=== PATIENT | male | born 1950 | race Caucasian/White ===

== ENCOUNTER 2016-08-31 06:11 | Day surgery (SDC) | payer MEDICARE ==
[2016-08-19 12:09] VITALS: BMI 35.1
[~2016-08-31 06:11] MED LIST: SODIUM CHLORIDE 0.9% 1,000 ML in EMPTY BAG 1 BAG IV ONE
[2016-08-31] MEDS ORDERED: ASPIRIN 81 MG CHEW ONE (06:39)
[2016-08-31 06:53] LABS: Glucose,Whole Blood 141 mg/dL (75-99)
[2016-08-31] MEDS ORDERED: SODIUM CHLORIDE 0.9% 1,000 ML IV ONE (06:53)
[2016-08-31] MEDS ORDERED: ASPIRIN 81 MG CHEW PO ONE (06:54)
[2016-08-31] MEDS ORDERED: LIDOCAINE 2% INJ 20 MG/ML SQ ONE (08:25)
[2016-08-31] MEDS ORDERED: MIDAZOLAM 2 MG/2 ML VIAL IV ONE (08:25)
[2016-08-31 08:35] LABS: INR 1.2 (<1.1); Prothrombin Time 12.1 sec (9.0-12.0)
[2016-08-31] MEDS ORDERED: fentaNYL (PF) 50 MCG/ML 2 ML AMP IV ONE (08:42)
[2016-08-31] MEDS ORDERED: CLOPIDOGREL 75 MG TAB PO ONE (08:48)
[2016-08-31] MEDS ORDERED: PROTAMINE SULFATE 10 MG/ML 5 ML VIAL IV ONE (08:59)
[2016-08-31 13:25] VITALS: TEMP 98.2
[2016-08-31 14:41] VITALS: BP 165/93; PULSE 78; RESP 16
[2016-08-31 17:04] LABS: Glucose,Whole Blood 96 mg/dL (75-99)
== END 2016-08-31 18:55 | disposition home or self-care (01) ==
LOC: CATHCVL 06:11 → 6SEL 08:45 → CATHCVL 18:55
PROVIDERS: ATTEND Internal Medicine Interventional Cardiology
DX: I70.213 Atherosclerosis of native arteries of extremities with intermittent claudication, bilateral legs (principal); Z53.8 Procedure and treatment not carried out for other reasons; M79.641 Pain in right hand; R20.0 Anesthesia of skin; I25.10 Atherosclerotic heart disease of native coronary artery without angina pectoris; Z95.1 Presence of aortocoronary bypass graft; E66.9 Obesity, unspecified; Z68.35 Body mass index [BMI] 35.0-35.9, adult; I10 Essential (primary) hypertension; Z87.891 Personal history of nicotine dependence; E78.00 Pure hypercholesterolemia, unspecified; E78.5 Hyperlipidemia, unspecified; Z82.49 Family history of ischemic heart disease and other diseases of the circulatory system; E11.9 Type 2 diabetes mellitus without complications; Z79.84 Long term (current) use of oral hypoglycemic drugs; Z79.01 Long term (current) use of anticoagulants; Z79.82 Long term (current) use of aspirin; Z79.899 Other long term (current) drug therapy; Z88.1 Allergy status to other antibiotic agents; Z88.2 Allergy status to sulfonamides
CPT/HCPCS: 37224; 85610; C1769 ×5; C1894 ×2; C1887; J2001; J2250; J2720; J3010; J1644

== ENCOUNTER 2016-09-02 09:41 | Day surgery (SDC) | payer MEDICARE ==
[2016-09-01 10:49] VITALS: BMI 35.4
[~2016-09-02 09:41] MED LIST changes: +ALPRAZolam 0.25 MG TAB PO PRN; +ASPIRIN 325 MG TAB PO STA; +ZOLPIDEM 5 MG TAB PO PRN
[2016-09-02 10:29] LABS: Glucose,Whole Blood 140 mg/dL (75-99)
[2016-09-02] MEDS ORDERED: IV FLUID CONTINUATION 1,000 ML IV ONE (11:25)
[2016-09-02] MEDS ORDERED: MIDAZOLAM 2 MG/2 ML VIAL IV ONE (12:04)
[2016-09-02] MEDS ORDERED: LIDOCAINE 2% INJ 20 MG/ML SQ ONE (12:10)
[2016-09-02] MEDS ORDERED: HEPARIN SODIUM 1,000 UNIT/ML VIAL IV ONE ×2 (12:15→12:56)
[2016-09-02] MEDS ORDERED: CLOPIDOGREL 75 MG TAB PO ONE (12:30)
[2016-09-02] MEDS ORDERED: niCARdipine Syringe (1,000 mcg/10 mL) INTRACORON ONE (13:13)
[2016-09-02] MEDS ORDERED: NITROGLYCERIN 1000MCG/10ML SYRINGE INTRAARTER ONE (13:13)
[2016-09-02] MEDS ORDERED: SODIUM CHLORIDE 0.9% 1,000 ML IV SCH (13:30)
[2016-09-02] MEDS ORDERED: IODIXANOL 320 MG/ML 100 ML INTRAARTER ONE (13:37)
[2016-09-02] MEDS ORDERED: hydrALAZINE HCL 20 MG/ML 1 ML VIAL IVP PRN (13:40)
[2016-09-02] MEDS ORDERED: ATROPINE SULFATE 0.1 MG/ML 10ML SYRINGE ONE (14:44)
--- NOTE | 2016-09-02 16:57 | IR ---
EXAMINATION TYPE: IR stent intravas non coronary DATE OF EXAM: 09/02/2016 1:44 PM COMPARISON: NONE HISTORY: Peripheral vascular disease Fluoroscopy support supplied to the referring clinician. See dictated report from cardiology, 414 in traoperative C-arm images document the procedure, 16.4 minutes fluoroscopy time
[2016-09-02 17:07] LABS: Glucose,Whole Blood 113 mg/dL (75-99)
[2016-09-02] MEDS ORDERED: NITROGLYCERIN SL TABS 0.4 MG TAB SUBLINGUAL PRN (19:22)
[2016-09-02] MEDS: ASPIRIN 81 MG CHEW PO SCH (20:13)
[2016-09-02 20:56] LABS: Glucose,Whole Blood 195 mg/dL (75-99)
[2016-09-02] MEDS ORDERED: NON-FORMULARY DRUG (Omega-3 Fatty Acids/Fish Oil [Fish Oil 1,000 Mg Softgel] 1 CAP) PO SCH (21:00)
[2016-09-02] MEDS ORDERED: PRAVASTATIN SODIUM 40 MG TAB PO SCH (21:00)
[2016-09-03 05:55] LABS: Glucose,Whole Blood 151 mg/dL (75-99)
[2016-09-03 06:11] LABS: Basophils # (A) 0.1 k/uL (0-0.2); Basophils % (A) 1 %; CH 30.9; CHCM 33.8; Eosinophils # (A) 0.2 k/uL (0-0.7); Eosinophils % (A) 2 %; HCT 34.8 % (39.0-53.0); HDW 2.82; HGB 11.1 gm/dL (13.0-17.5); Luc # (Auto) 0.13; Luc % (Auto) 2; Lymphocytes # (A) 1.7 k/uL (1.0-4.8); Lymphocytes % (A) 22 %; MCH 29.4 pg (25.0-35.0); MCV 91.9 fL (80.0-100.0); Mean Platelet Volume 7.3; Monocytes # (A) 0.6 k/uL (0-1.0); Monocytes % (A) 7 %; Neutrophils % (A) 66 %; RBC 3.78 m/uL (4.30-5.90); RDW 15.6 % (11.5-15.5); WBC 7.6 k/uL (3.8-10.6); WBC (Perox) 7.72
[2016-09-03 06:22] LABS: Anion Gap 9 mmol/L; Blood Urea Nitrogen 16 mg/dL (9-20); Calcium 9.7 mg/dL (8.4-10.2); Carbon Dioxide 28 mmol/L (22-30); Chloride 101 mmol/L (98-107); Glucose 142 mg/dL (74-99); Non-African American GFR(MDRD) >60 (>60 ml/min/1.73 sqM); Potassium 4.4 mmol/L (3.5-5.1); Sodium 138 mmol/L (137-145)
--- NOTE | 2016-09-03 07:00 | PCN ---
DATE OF PROCEDURE: September 02, 2016. PERFORMING PHYSICIAN: Nahid Porras MD, Aba Therapist. PROCEDURE PERFORMED: 1. Selective left superficial femoral artery angiogram. 2. Selective left [id number]-[id number]-pmmp angiogram. 3. Selective right common femoral artery angiogram. 4. Atherectomy of the left superficial femoral artery using the TurboHawk device. 5. Balloon angioplasty of the left SFA using 6.0 x 60 mm drug-coated balloon. 6. Successful stenting of the left SFA using 6.5 x 60 mm Supera stent with a good angiographic results. INDICATIONS: This is a pleasant 66-year-old gentleman who was experiencing bilateral lower extremity discomfort consistent with claudication, who underwent a peripheral angiogram and was found to have severe bilateral SFA disease. He was admitted today to undergo BIT SHARPENER OPERATOR of the left SFA. APPROACH: Right common femoral artery. COMPLICATIONS: None. LEVEL OF SEDATION: Moderate. PROCEDURE DESCRIPTION: After obtaining an informed consent, the patient was brought to the cardiac laboratory chemical assistant. The right common femoral artery was cannulated using micropuncture technique. The micropuncture wire passed easily. Then I placed an 11 cm 6 Barbadian sheath in the right common femoral artery. Subsequently anticoagulation was initiated using heparin and the patient was given a total of 10,000 units of heparin IV. After that, I did select the left SFA using an 0.035 advantage wire with support of 5 Barbadian rim catheter. After that, I did exchange my 11 cm 6 Barbadian sheath into 55 cm 6 Barbadian sheath using the advantage wire where the tip of the long sheath was positioned in the left external iliac artery. Subsequently, I exchanged my 0.035 advantage wire into 0.014 Ironman using an 0.035 QuickCross catheter. After that, I did multiple runs of directional atherectomy using the TurboHawk device and I was able to extract plaque from the left external iliac artery. After that, I did balloon angioplasty initially using 5.0 x 60 and then 6.0 x 60 mm drug-coated balloon which was inflated under its nominal pressure for 3 minutes. The following angiogram showed dissection involving the left SFA with haziness as well. At that point, I decided to stent that segment. I did deploy 6.6 x 60 mm Supera stent, where the stent was positioned under fluoroscopy guidance. Then it was deployed. I postdilated the proximal edge of the stent using 7 mm balloon. The following angiogram showed a good angiographic results. The left [id number]-veb-[id number] angiogram showed 3 vessel runoff, which seems to be unchanged compared to before. After that, I did exchange my 55 cm 6 Barbadian sheath into 11 cm 6 Barbadian sheath using the advantage wire. Then I did do selective right common femoral artery angiogram. The procedure was completed without any complication. POSTPROCEDURE MANAGEMENT: 1. Dual antiplatelet therapy. 2. Risk factor modification. 3. Follow up with the patient.
--- NOTE | 2016-09-03 07:03 | LTR ---
September 02, 2016 RE: Kevin Mcknight Dear Dr. Hall: Mr. Kevin Mcknight underwent successful balloon angioplasty and stenting of the left femoral artery with a good angiographic result and without any complication. Thank you for allowing me to participate in his care. Sincerely, ABHAY HERNÁNDEZ MD
[2016-09-03] MEDS ORDERED: PANTOPRAZOLE 40 MG TABLET PO SCH (07:30)
[2016-09-03] MEDS ORDERED: glipiZIDE 10 MG TAB PO SCH (07:30)
[2016-09-03] MEDS ORDERED: FUROSEMIDE 40 MG TAB PO SCH (09:00)
[2016-09-03] MEDS ORDERED: ALLOPURINOL 100 MG TAB PO SCH (09:00)
[2016-09-03] MEDS ORDERED: METOPROLOL SUCCINATE (ER) 100 MG TAB.ER.24H PO SCH (09:00)
[2016-09-03] MEDS ORDERED: MAGNESIUM OXIDE 400 MG TAB PO SCH (09:00)
[2016-09-03] MEDS ORDERED: ASPIRIN 325 MG TAB PO SCH (09:00)
[2016-09-03] MEDS ORDERED: CLOPIDOGREL 75 MG TAB PO SCH (09:00)
[2016-09-03] MEDS ORDERED: SPIRONOLACTONE 25 MG TAB PO SCH (09:00)
[2016-09-03 09:12] VITALS: RESP 12; TEMP 97
[2016-09-03] MEDS: ASPIRIN 81 MG CHEW PO SCH (09:19)
--- NOTE | 2016-09-03 09:56 | P.PN ---
Subjective Principal diagnosis: PAD Discharge note This is a pleasant 66-year-old gentleman with known history of paroxysmal atrial fibrillation, coronary artery disease with prior bypass surgery, PAD, diabetes, hypertension, hyperlipidemia, GERD, who was experiencing bilateral lower extremity discomfort consistent with claudication, he underwent a peripheral angiogram and was found to have severe bilateral SFA disease. He was admitted to the hospital to undergo BOX STORAGE WORKER of the left SFA. This was performed yesterday by Dr. Gordon, successful stenting of the left SFA. Patient was seen and examined this morning, states he did not sleep very well last night through the night, however denies any discomfort in his legs, no discomfort in the groin. Blood pressure this morning 154/80, heart rate in the 80s. 93% on room air. Hemoglobin 11.1, platelet count 273, potassium 4.4, BUN 16 and creatinine 1.2. Patient is currently on aspirin 325 mg, Plavix 75 mg daily, Lasix 40 mg daily, lisinopril 5 mg daily, magnesium tablet, metoprolol tartrate 100 mg by mouth daily, Protonix 40 mg daily, pravastatin 40 mg at at bedtime, and Aldactone 25 mg daily. He may be able to be discharged home today. A follow-up appointment will be made in the office in one week. Objective - Vital Signs Vital signs: Vital Signs Temp 97 F L 09/03/16 09:11 Pulse 80 09/03/16 09:13 Resp 12 09/03/16 09:13 BP 154/81 09/03/16 09:11 Pulse Ox 93 L 09/03/16 09:11 Intake & Output 09/02/16 09/03/16 09/03/16 18:59 06:59 18:59 Intake Total 150 10 180 Output Total 600 Balance 150 -590 180 Weight 108.862 kg 108.8 kg Intake: IV 150 10 0.9% NS FLUSH 10 mL 10 Oral 180 Output: Urine 600 Other: Voiding Method Urinal - Exam PHYSICAL EXAMINATION: HEENT: Head is atraumatic, normocephalic. Pupils equal, round. Neck is supple. There is no elevated jugular venous pressure. HEART EXAMINATION: Heart S1 S2 1 systolic murmur is heard. CHEST EXAMINATION: Lungs are clear to auscultation and precussion. No chest wall tenderness is noted on palpation or with deep breathing. ABDOMEN: Soft, nontender. Bowel sounds are heard. No organomegaly noted. Right groin soft, no evidence of any hematoma. EXTREMITIES: 1+ peripheral pulses with no evidence of peripheral edema and no calf tenderness noted. NEUROLOGIC patient is awake, alert and oriented -3. . - Labs CBC & Chem 7: 09/03/16 05:32 09/03/16 05:32 Labs: Abnormal Lab Results - Last 24 Hours (Table) 09/02/16 09/02/16 09/02/16 Range/Units 10:22 16:47 20:54 RBC (4.30-5.90) m/uL Hgb (13.0-17.5) gm/dL Hct (39.0-53.0) % RDW (11.5-15.5) % Glucose (74-99) mg/dL POC Glucose (mg/dL) 140 H 113 H 195 H (75-99) mg/dL 09/03/16 09/03/16 09/03/16 Range/Units 05:32 05:32 05:53 RBC 3.78 L (4.30-5.90) m/uL Hgb 11.1 L (13.0-17.5) gm/dL Hct 34.8 L (39.0-53.0) % RDW 15.6 H (11.5-15.5) % Glucose 142 H (74-99) mg/dL POC Glucose (mg/dL) 151 H (75-99) mg/dL Assessment and Plan Plan: Assessment and plan #1 status post angioplasty and stenting of the left SFA #2 paroxysmal atrial fibrillation #3 known history of coronary artery disease with prior bypass surgery #4 diabetes #5 hypertension #6 hyperlipidemia Plan Patient may be able to be discharged home today. We will make a follow-up appointment for the patient to see Dr. Gordon in the office in one week. Discharge medications include aspirin 81 mg daily, Plavix 75 mg daily, Lasix 40 mg daily, lisinopril 5 mg daily, magnesium, metoprolol tartrate 100 mg daily, pravastatin 40 mg daily, Aldactone 25 mg daily, Protonix, we will also resume the patient's Coumadin as he is taking at home, obtain PT/INR on Monday. DNP note has been reviewed, I agree with a documented findings and plan of care. Patient was seen and examined.
[2016-09-03] MEDS ORDERED: LISINOPRIL 5 MG TAB PO SCH (12:00)
[2016-09-03 12:16] LABS: Glucose,Whole Blood 193 mg/dL (75-99)
[2016-09-03 12:25] VITALS: BP 152/67; PULSE 68
== END 2016-09-03 13:24 | disposition home or self-care (01) ==
LOC: CATHCVL 09:41 → 6SEL 12:21 → CATHCVL 12:21 → 6SEL 13:20 → CATHCVL 09-03 13:24
PROVIDERS: ATTEND Internal Medicine Interventional Cardiology
DX: I70.213 Atherosclerosis of native arteries of extremities with intermittent claudication, bilateral legs (principal); I25.10 Atherosclerotic heart disease of native coronary artery without angina pectoris; Z95.1 Presence of aortocoronary bypass graft; I10 Essential (primary) hypertension; Z87.891 Personal history of nicotine dependence; E78.00 Pure hypercholesterolemia, unspecified; E78.5 Hyperlipidemia, unspecified; E66.9 Obesity, unspecified; Z68.35 Body mass index [BMI] 35.0-35.9, adult; Z82.49 Family history of ischemic heart disease and other diseases of the circulatory system; Z79.01 Long term (current) use of anticoagulants; Z79.84 Long term (current) use of oral hypoglycemic drugs; Z79.82 Long term (current) use of aspirin; Z79.899 Other long term (current) drug therapy; Z88.2 Allergy status to sulfonamides
CPT/HCPCS: 37227; 80048; 85025; C1769 ×4; C1894 ×2; C1725; C1887; C1714; C2623; C1876; J2001; J2250; Q9967; J1644

== ENCOUNTER 2016-09-21 12:17 | Day surgery (SDC) | payer MEDICARE ==
[2016-09-16 13:06] VITALS: BMI 35.4
[~2016-09-21 12:17] MED LIST changes: -ZOLPIDEM 5 MG TAB PO PRN
[2016-09-21 12:49] LABS: Glucose,Whole Blood 141 mg/dL (75-99)
[2016-09-21 13:10] LABS: INR 1.2 (<1.1)
[2016-09-21 13:11] LABS: Prothrombin Time 11.9 sec (9.0-12.0)
[2016-09-21] MEDS ORDERED: MIDAZOLAM 2 MG/2 ML VIAL IV ONE ×2 (16:19→18:23)
[2016-09-21] MEDS ORDERED: LIDOCAINE 2% INJ 20 MG/ML SQ ONE (16:24)
[2016-09-21] MEDS ORDERED: HYDROmorphone 2 MG/ML 1 ML SYRINGE IV ONE (16:30)
[2016-09-21] MEDS: MIDAZOLAM 2 MG/2 ML VIAL IV ONE ×2 (16:39→17:04)
[2016-09-21] MEDS ORDERED: niCARdipine Syringe (1,000 mcg/10 mL) IV ONE (18:06)
[2016-09-21] MEDS ORDERED: NITROGLYCERIN 1000MCG/10ML SYRINGE INTRAARTER ONE (18:06)
[2016-09-21] MEDS ORDERED: NITROGLYCERIN SL TABS 0.4 MG TAB SUBLINGUAL PRN (18:35)
[2016-09-21] MEDS ORDERED: SODIUM CHLORIDE 0.9% 1,000 ML IV SCH (18:45)
[2016-09-21] MEDS ORDERED: ATROPINE SULFATE 0.1 MG/ML 10ML SYRINGE ONE (20:28)
[2016-09-21 20:40] LABS: Glucose,Whole Blood 172 mg/dL (75-99)
[2016-09-21] MEDS ORDERED: PRAVASTATIN SODIUM 40 MG TAB PO SCH (21:00)
[2016-09-21] MEDS ORDERED: NON-FORMULARY DRUG (Omega-3 Fatty Acids/Fish Oil [Fish Oil 1,000 Mg Softgel] 1 CAP) PO SCH (21:00)
[2016-09-21] MEDS: MAGNESIUM OXIDE 400 MG TAB PO SCH (21:20)
[2016-09-21] MEDS: ASPIRIN 81 MG CHEW PO SCH (21:20)
--- NOTE | 2016-09-21 22:28 | PTCA ---
DATE OF SERVICE: 09/21/2016 PERFORMING PHYSICIAN: Nahid Porras M.D., electric power machine operator. PROCEDURES PERFORMED: 1. Selective right superficial femoral artery angiogram. 2. Selective right common femoral artery angiogram. 3. Selective left common iliac artery angiogram. 4. Selective left external iliac artery angiogram. 5. Selective left common femoral artery angiogram. 6. An atherectomy of the right superficial femoral artery using the TurboHawk device. 7. An atherectomy of the right common femoral artery using the TurboHawk device. 8. Successful stenting of the right external iliac artery using a 6 x 40 mm self-expandable stent, with good angiographic results. 9. Successful balloon angioplasty of the right common femoral artery using a 6 x 60 mm drug-coated balloon, with good angiographic results. 10. Successful stenting of the left common iliac artery using a 8.0 x 39 mm iCAST-covered stent which was post dilated using a 9 mm balloon, with good angiographic results. INDICATION: This is a pleasant 66-year-old gentleman who was experiencing severe bilateral lower extremity discomfort consistent with intermittent claudication. He underwent a peripheral angiogram a few weeks ago and that showed severe left and right femoropopliteal disease. He underwent already an angioplasty of the left leg, and he was brought today to undergo angioplasty of the right leg. APPROACH: Left common femoral artery in a contralateral retrograde fashion. COMPLICATIONS: None. LEVEL OF SEDATION: Moderate. PROCEDURE DESCRIPTION: After obtaining informed consent, the patient was brought to the cardiac cath lab radiological technologist. The left common femoral artery was cannulated using micropuncture technique. The micropuncture wire passed easily. Then I placed initially an 11 cm 7 Malian sheath in the left common femoral artery. Subsequently I selected the right SFA using an 0.35 Advantage wire with the support of 5 Malian RIM catheter. Subsequently I tried to cross over and advance a 7 Malian 55 cm sheath across the aortic bifurcation to the right common femoral artery, but the sheath would not cross over because of the heavy calcified aortic bifurcation. I tried that over an 0.035 stiff Glidewire, 0.035 Advantage wire, and 0.035 Amplatzer wire, and I was unable. I even tried to advance a 6 Malian multipurpose catheter, and I was unable. At that point I decided to downgrade my 7 Malian sheath to a 6 Malian sheath. At that point I was able to cross over a 55 cm 6 Malian sheath to the right side over an 0.035 Advantage wire and support from a multipurpose catheter. The tip of the 6 Malian Rabi sheath was positioned in the right external iliac artery. Anticoagulation had already been initiated using heparin after that I accessed the left groin. Subsequently I did selective right SFA and right common femoral artery angiogram. After that, I did atherectomy of the right SFA and atherectomy of the right common femoral artery using the TurboHawk device, which was prepped and advanced over a 0.014 Ironman. After multiple runs of directional atherectomy, I performed an angiogram. After that I did stenting of the right SFA using a 6.0 x 40 mm self-expandable stent which was positioned under fluoroscopy guidance. Then it was deployed. I post dilated the stent using a 5 mm balloon. For the lesion in the right common femoral artery, I did balloon angioplasty using a 6 x 60 mm DCB balloon which was inflated again under its nominal pressure. The following angiogram showed excellent angiographic results. During the procedure and when I was crossing over from the left side to the right side, I had a concern about a lesion in the left common iliac artery where I did perform multiple angiograms. The lesion angiographically does not look too bad. I did measure a gradient across it, and that came out to be non-significant, but the lesion looks ulcerated and hazy. I decided to stent that lesion, so I did deploy an iCAST which was 8.0 x 39 mm stent, which was post dilated using a 9 mm balloon. The following angiogram showed good angiographic results. The procedure was completed without any complication. Post-procedure management will be: 1. Dual antiplatelet therapy. 2. Risk factor modification. 3. Followup with the patient.
--- NOTE | 2016-09-21 23:47 | LTR ---
September 21, 2016 RE: Kevin Mcknight Dear Dr. Hall, Mr. Kevin Mcknight underwent successful stenting of the left iliac artery and right femoral artery with good angiographic results and without any complication. Thank you for allowing us to participate in his care. Please do not hesitate to call if you have any question or concern. Sincerely, ABHAY HERNÁNDEZ MD
[2016-09-22 06:02] LABS: Glucose,Whole Blood 152 mg/dL (75-99)
[2016-09-22 06:53] LABS: Basophils % (A) 1 %; CH 30.3; CHCM 33.1; Eosinophils # (A) 0.1 k/uL (0-0.7); Eosinophils % (A) 2 %; HCT 32.2 % (39.0-53.0); HDW 2.77; HGB 10.5 gm/dL (13.0-17.5); Luc # (Auto) 0.14; Luc % (Auto) 2; Lymphocytes # (A) 1.3 k/uL (1.0-4.8); Lymphocytes % (A) 17 %; MCH 29.9 pg (25.0-35.0); MCHC 32.6 g/dL (31.0-37.0); MCV 91.8 fL (80.0-100.0); Mean Platelet Volume 6.7; Monocytes # (A) 0.4 k/uL (0-1.0); Monocytes % (A) 6 %; Neutrophils # (A) 5.6 k/uL (1.3-7.7); Neutrophils % (A) 73 %; RBC 3.51 m/uL (4.30-5.90); WBC 7.6 k/uL (3.8-10.6); WBC (Perox) 8.66
[2016-09-22 07:28] LABS: Anion Gap 13 mmol/L; Blood Urea Nitrogen 33 mg/dL (9-20); Carbon Dioxide 25 mmol/L (22-30); Chloride 100 mmol/L (98-107); Glucose 145 mg/dL (74-99); Non-African American GFR(MDRD) 50 (>60 ml/min/1.73 sqM); Potassium 5.1 mmol/L (3.5-5.1); Sodium 138 mmol/L (137-145)
[2016-09-22] MEDS ORDERED: glipiZIDE 10 MG TAB PO SCH (07:30)
[2016-09-22] MEDS ORDERED: PANTOPRAZOLE 40 MG TABLET PO SCH (07:30)
[2016-09-22 08:08] VITALS: BP 129/61; PULSE 84; RESP 16; TEMP 97
[2016-09-22] MEDS: ASPIRIN 81 MG CHEW PO SCH (08:11)
[2016-09-22] MEDS: MAGNESIUM OXIDE 400 MG TAB PO SCH (08:11)
[2016-09-22] MEDS ORDERED: ALLOPURINOL 100 MG TAB PO SCH (09:00)
[2016-09-22] MEDS ORDERED: METOPROLOL SUCCINATE (ER) 100 MG TAB.ER.24H PO SCH (09:00)
[2016-09-22] MEDS ORDERED: FUROSEMIDE 40 MG TAB PO SCH (09:00)
[2016-09-22] MEDS ORDERED: CLOPIDOGREL 75 MG TAB PO SCH (09:00)
--- NOTE | 2016-09-22 11:49 | IR ---
Fluoroscopy HISTORY: Pain 35.5 minutes fluoroscopy time supplied to the referring clinician. 433 intraoperative C-arm images d ocument the procedure. See dictated report from cardiology.
[2016-09-22] MEDS ORDERED: LISINOPRIL 5 MG TAB PO SCH (12:00)
--- NOTE | 2016-09-23 09:13 | DS ---
DATE OF ADMISSION: 09/21/2016 DATE OF DISCHARGE: 09/22/2016 BRIEF HISTORY: This is a pleasant 66-year-old gentleman who was admitted to the hospital yesterday and underwent successful balloon angioplasty of the right superficial femoral artery along with successful balloon angioplasty of the right common femoral artery and successful stenting of the left iliac artery with a good angiographic result and without any complication. On follow-up with him today, he is doing good and he is asymptomatic. The left groin, which was the access site was soft and nontender and without any bruises. The patient is going to be discharged home on dual antiplatelet therapy and I will follow up with the patient next week in the office.
[2016-10-06] MEDS ORDERED: CYANOCOBALAMIN 1,000 MCG/ML 1 ML VIAL IM SCH (12:00)
== END 2016-09-22 10:28 | disposition home or self-care (01) ==
LOC: CATHCVL 12:17 → 6SEL 18:35 → CATHCVL 09-22 10:28
PROVIDERS: ATTEND Internal Medicine Interventional Cardiology
DX: I70.213 Atherosclerosis of native arteries of extremities with intermittent claudication, bilateral legs (principal); I10 Essential (primary) hypertension; E78.00 Pure hypercholesterolemia, unspecified; I25.10 Atherosclerotic heart disease of native coronary artery without angina pectoris; I25.82 Chronic total occlusion of coronary artery; I48.0 Paroxysmal atrial fibrillation; E66.9 Obesity, unspecified; E78.5 Hyperlipidemia, unspecified; E11.9 Type 2 diabetes mellitus without complications; I50.22 Chronic systolic (congestive) heart failure; Z68.35 Body mass index [BMI] 35.0-35.9, adult; M47.9 Spondylosis, unspecified; Z79.01 Long term (current) use of anticoagulants; Z79.84 Long term (current) use of oral hypoglycemic drugs; Z79.82 Long term (current) use of aspirin; Z79.899 Other long term (current) drug therapy; Z95.1 Presence of aortocoronary bypass graft; Z82.49 Family history of ischemic heart disease and other diseases of the circulatory system; Z95.5 Presence of coronary angioplasty implant and graft
CPT/HCPCS: 99156; 99157 ×7; 37221; 37225; 80048; 85025; 85610; C1769 ×7; C1894 ×5; C1725 ×2; C1874; C1887; C1714; C2623; J2001; J2250; J1170; J1644

== ENCOUNTER 2016-09-28 05:06 | Emergency (ER) | payer MEDICARE ==
[2016-09-28 05:13] VITALS: RESP 16; TEMP 98.3
--- NOTE | 2016-09-28 05:36 | ED ---
General Adult HPI - General Source: patient, RN notes reviewed Mode of arrival: ambulatory Limitations: no limitations <Delfino Madera - Last Filed: 09/28/16 05:36> <Brad Gipson - Last Filed: 09/28/16 08:21> - General Chief complaint: Recheck/Abnormal Lab/Rx Stated complaint: problems post surgery Time Seen by Provider: 09/28/16 05:10 - History of Present Illness Initial comments: This is a 66-year-old male who states he had a cardiac catheterization approximately one week ago. Patient states last night he noticed a small lump on his left groin and that lump is growing until this morning and that is why he came in to be evaluated. Patient states the area does not hurt patient has had no other problems he has some ecchymosis to the area but that has been chronic. Patient states his been no new ecchymosis the only new problems at the lump has grown. Patient denies any numbness or tingling in the leg. Patient denies chest pain or difficulty breathing (Delfino Madera) - Related Data Home Medications Medication Instructions Recorded Confirmed Allopurinol [Zyloprim] 100 mg PO DAILY 03/16/15 09/28/16 [place]-3 Fatty Acids/Fish Oil [Fish 1 cap PO BID 03/16/15 09/28/16 Oil 1,000 mg Softgel] glipiZIDE [Glucotrol] 20 mg PO AC-BRKFST 03/16/15 09/28/16 Aspirin [Adult Low Dose Aspirin EC] 81 mg PO BID 05/12/16 09/28/16 Nitroglycerin Sl Tabs [Nitrostat] 0.4 mg SUBLINGUAL DIRECTED PRN 05/12/1609/13 Omeprazole [PriLOSEC] 20 mg PO AC-BID 05/12/16 09/28/16 Cyanocobalamin [Vitamin B-12 1,000 mcg IM Q30D 05/26/16 09/28/16 Injection] Lisinopril [Zestril] 5 mg PO DAILY@1200 08/19/16 09/28/16 Magnesium Oxide [Mag-Ox] 400 mg PO TID 08/19/16 09/28/16 Metoprolol Succinate (ER) [Toprol 100 mg PO DAILY 08/19/16 09/28/16 XL] Spironolactone [Aldactone] 12.5 mg PO DAILY 08/19/16 09/28/16 Warfarin Sodium [Coumadin] 15 mg PO MOTUTHFRSA 09/28/16 09/28/16 Warfarin [Coumadin] 10 mg PO SUWE 09/28/16 09/28/16 metFORMIN HCL 2,000 mg PO BID 09/28/16 09/28/16 Previous Rx's Medication Instructions Recorded Furosemide [Lasix] 40 mg PO DAILY #90 tablet 06/05/16 Clopidogrel [Plavix] 75 mg PO DAILY #30 tab 09/03/16 Pravastatin Sodium [Pravachol] 40 mg PO HS #30 tab 09/03/16 Allergies Allergy/AdvReac Type Severity Reaction Status Date / Time Sulfa (Sulfonamide Allergy Rash/Hives Verified 09/28/16 05:13 Antibiotics) sulfamethoxazole Allergy Rash/Hives Verified 09/28/16 05:13 [From Bactrim] trimethoprim [From Bactrim] Allergy Rash/Hives Verified 09/28/16 05:13 Review of Systems ROS Other: All systems not noted in ROS Statement are negative. <Delfino Madera - Last Filed: 09/28/16 05:36> ROS Other: All systems not noted in ROS Statement are negative. <Brad Gipson - Last Filed: 09/28/16 08:21> ROS Statement: Those systems with pertinent positive or pertinent negative responses have been documented in the HPI. Past Medical History Past Medical History: Atrial Fibrillation, Coronary Artery Disease (CAD), Chest Pain / Angina, Heart Failure, Diabetes Mellitus, GERD/Reflux, Hyperlipidemia, Hypertension, Musculoskeletal Disorder, Osteoarthritis (OA), Vascular Disorder Additional Past Medical History / Comment(s): Arthritis BACK. Gout. POS Gallstones. PVD. PAIN RT LEG W/ NT IN FOOT. History of Any Multi-Drug Resistant Organisms: None Reported Past Surgical History: Coronary Bypass/CABG, Heart Catheterization With Stent, Orthopedic Surgery, Tonsillectomy Additional Past Surgical History / Comment(s): Rt foot surgery. CABG 2005- triple bypass. HEART STENT X2. Attempted (RT BRACHIAL ACCESS) fem-pop ; 09/02/16 LT ANGIOGRAM,PER STAFF: PTBA W/ 1 STENT.09-21-16 RT ILIAC STENTS AND STENT TO SFA,BALLOONED FEM ARTERY. Past Anesthesia/Blood Transfusion Reactions: No Reported Reaction Date of Last Stent Placement:: 09/02/16 Past Psychological History: No Psychological Hx Reported Additional Psychological History / Comment(s): . Smoking Status: Former smoker Past Alcohol Use History: None Reported Additional Past Alcohol Use History / Comment(s): Pt states he started smoking about 1965, 2 PPD, quit in 2005. Past Drug Use History: None Reported - Past Family History Father Family Medical History: Vascular Disorder Additional Family Medical History / Comment(s): Father at the age of 65 yrs from heart problems. Mother Family Medical History: Pulmonary Embolus <Delfino Madera - Last Filed: 09/28/16 05:36> General Exam Limitations: no limitations <Delfino Madera - Last Filed: 09/28/16 05:36> <Brad Gipson - Last Filed: 09/28/16 08:21> - General Exam Comments Initial Comments: GENERAL Patient is well-developed and well-nourished. Patient is in mild distress. EYES Patient's pupils are equal and round. Extraocular motion is intact SKIN Unremarkable NEURO The patient is alert and oriented 3 PYSCH Patient has normal interpersonal interactions. MUSCULOSKELETAL Patient's left groin is very ecchymotic there is a lump in the left groin that has a very loud pulses were auscultated when compared to the right. (Delfino Madera) Medical Decision Making <Delfino Madera - Last Filed: 09/28/16 05:36> - Radiology Data Radiology results: report reviewed (Ultrasound shows 2 small hematomas, no pseudoaneurysm.) <Brad Gipson - Last Filed: 09/28/16 08:21> - Medical Decision Making Patient will be taken over by Dr. Gipson at 7 AM (Delfino Madera) Patient reexamined by myself, Dr. Gipson. Patient resting comfortably in bed. Patient has ecchymosis without significant swelling left groin. Pulses are intact. No significant tenderness. Patient and family updated on results. ( Brad Gipson) Disposition <Delfino Madera - Last Filed: 09/28/16 05:36> <Brad Gipson - Last Filed: 09/28/16 08:21> Clinical Impression: Hematoma Disposition: HOME SELF-CARE Condition: Stable Instructions: Hematoma (ED) Additional Instructions: Please follow-up with your doctor and healthcare social worker this week. Return for increased swelling, increased pain, redness, worsening symptoms or other concerns. Referrals: Kristel Hall MD [Primary Care Provider] - 1-2 days
--- NOTE | 2016-09-28 08:05 | US ---
EXAMINATION TYPE: US lower ext pseudo artery LT DATE OF EXAM: 09/28/2016 7:39 AM COMPARISON: No previous CLINICAL HISTORY: Pain. Left groin palpable/painful area following stent placement with left groin ac cess TECHNOLOGIST IMPRESSION: Scanned left groin palpable area: 2 hypoechoic non-vascular areas anterior to CFV with larger measuring 3.1 x 0.5 x 2.2cm and smaller measuring 1.1 x 0.5 x 1.2cm, 1.7 x 0.7 x 1 .3cm hypoechoic vascular area superior to palpable area: possible lymph node IMPRESSION: 1. Small hematoma. 2. No evidence of a pseudoaneurysm at the time
[2016-09-28 08:29] VITALS: BP 147/70; PULSE 67
== END 2016-09-28 08:28 | disposition home or self-care (01) ==
LOC: EC 05:06
DX: I97.630 Postprocedural hematoma of a circulatory system organ or structure following a cardiac catheterization (principal); Y84.0 Cardiac catheterization as the cause of abnormal reaction of the patient, or of later complication, without mention of misadventure at the time of the procedure; I11.0 Hypertensive heart disease with heart failure; I50.9 Heart failure, unspecified; I48.91 Unspecified atrial fibrillation; I25.10 Atherosclerotic heart disease of native coronary artery without angina pectoris; E11.9 Type 2 diabetes mellitus without complications; E78.5 Hyperlipidemia, unspecified; M10.9 Gout, unspecified; K21.9 Gastro-esophageal reflux disease without esophagitis; Z79.01 Long term (current) use of anticoagulants; Z79.82 Long term (current) use of aspirin; Z79.84 Long term (current) use of oral hypoglycemic drugs; Z79.02 Long term (current) use of antithrombotics/antiplatelets; Z79.899 Other long term (current) drug therapy; Z88.1 Allergy status to other antibiotic agents; Z88.2 Allergy status to sulfonamides; Z95.1 Presence of aortocoronary bypass graft; Z95.5 Presence of coronary angioplasty implant and graft
CPT/HCPCS: 93975; 99283

== ENCOUNTER 2016-10-25 11:00 | Inpatient (IN) | payer MEDICARE ==
--- NOTE | 2016-10-25 11:43 | ED ---
Weakness HPI - General Chief complaint: Weakness Stated complaint: lt arm pain/dark stool/weakness Time Seen by Provider: 10/25/16 11:30 Source: patient, family, RN notes reviewed Mode of arrival: wheelchair Limitations: no limitations - History of Present Illness Initial comments: This is a 66-year-old male with a history of heart disease who was taking a shower this morning when he became very weak lightheaded. He also has some left shoulder pain. He had exertional dyspnea. Per his he was very pale. He also states she's had black stool today. He is on Coumadin. He denies any headache or blurry vision or focal weakness. He states a left shoulder pain is resolved initially better as he is lying down at this time. No prior history of abdominal surgery or GI bleeding. He states he did not eat anything that could turn his stool black. MD Complaint: generalized weakness - Related Data Home Medications Medication Instructions Recorded Confirmed Allopurinol [Zyloprim] 100 mg PO DAILY 03/16/15 10/25/16 [place]-3 Fatty Acids/Fish Oil [Fish 1 cap PO BID 03/16/15 10/25/16 Oil 1,000 mg Softgel] glipiZIDE [Glucotrol] 20 mg PO AC-BRKFST 03/16/15 10/25/16 Aspirin [Adult Low Dose Aspirin EC] 81 mg PO BID 05/12/16 10/25/16 Nitroglycerin Sl Tabs [Nitrostat] 0.4 mg SUBLINGUAL DIRECTED PRN 05/12/16 Omeprazole [PriLOSEC] 20 mg PO AC-BID 05/12/16 10/25/16 Cyanocobalamin [Vitamin B-12 1,000 mcg IM Q30D 05/26/16 10/25/16 Injection] Lisinopril [Zestril] 5 mg PO DAILY@1200 08/19/16 10/25/16 Magnesium Oxide [Mag-Ox] 400 mg PO DAILY@1200 08/19/16 10/25/16 Metoprolol Succinate (ER) [Toprol 100 mg PO DAILY 08/19/16 10/25/16 XL] Spironolactone [Aldactone] 12.5 mg PO DAILY 08/19/16 10/25/16 Warfarin Sodium [Coumadin] 15 mg PO SUMOTUTHFRSA 09/28/16 10/25/16 Warfarin [Coumadin] 10 mg PO WE 09/28/16 10/25/16 metFORMIN HCL 2,000 mg PO BID 09/28/16 10/25/16 Previous Rx's Medication Instructions Recorded Furosemide [Lasix] 40 mg PO DAILY #90 tablet 06/05/16 Clopidogrel [Plavix] 75 mg PO DAILY #30 tab 09/03/16 Pravastatin Sodium [Pravachol] 40 mg PO HS #30 tab 09/03/16 Allergies Allergy/AdvReac Type Severity Reaction Status Date / Time Sulfa (Sulfonamide Allergy Rash/Hives Verified 10/25/16 11:45 Antibiotics) sulfamethoxazole Allergy Rash/Hives Verified 10/25/16 11:45 [From Bactrim] trimethoprim [From Bactrim] Allergy Rash/Hives Verified 10/25/16 11:45 Review of Systems ROS Statement: Those systems with pertinent positive or pertinent negative responses have been documented in the HPI. ROS Other: All systems not noted in ROS Statement are negative. Past Medical History Past Medical History: Atrial Fibrillation, Coronary Artery Disease (CAD), Chest Pain / Angina, Heart Failure, Diabetes Mellitus, GERD/Reflux, Hyperlipidemia, Hypertension, Musculoskeletal Disorder, Osteoarthritis (OA), Vascular Disorder Additional Past Medical History / Comment(s): Arthritis BACK. Gout. POS Gallstones. PVD. PAIN RT LEG W/ NT IN FOOT. History of Any Multi-Drug Resistant Organisms: None Reported Past Surgical History: Coronary Bypass/CABG, Heart Catheterization With Stent, Orthopedic Surgery, Tonsillectomy Additional Past Surgical History / Comment(s): Rt foot surgery. CABG 2005- triple bypass. HEART STENT X2. Attempted (RT BRACHIAL ACCESS) fem-pop ; 09/02/16 LT ANGIOGRAM,PER STAFF: PTBA W/ 1 STENT.09-21-16 RT ILIAC STENTS AND STENT TO SFA,BALLOONED FEM ARTERY. Past Anesthesia/Blood Transfusion Reactions: No Reported Reaction Date of Last Stent Placement:: 09/02/16 Past Psychological History: No Psychological Hx Reported Additional Psychological History / Comment(s): . Smoking Status: Former smoker Past Alcohol Use History: None Reported Additional Past Alcohol Use History / Comment(s): Pt states he started smoking about 1965, 2 PPD, quit in 2005. Past Drug Use History: None Reported - Past Family History Father Family Medical History: Vascular Disorder Additional Family Medical History / Comment(s): Father at the age of 65 yrs from heart problems. Mother Family Medical History: Pulmonary Embolus General Exam - General Exam Comments Initial Comments: This is a well-developed well-nourished awake alert oriented 3 male Limitations: no limitations General appearance: alert, in no apparent distress Head exam: Present: atraumatic, normocephalic, normal inspection Eye exam: Present: normal appearance, PERRL, EOMI. Absent: scleral icterus, conjunctival injection, periorbital swelling ENT exam: Present: normal exam, mucous membranes moist Neck exam: Present: normal inspection. Absent: tenderness, meningismus, lymphadenopathy Respiratory exam: Present: normal lung sounds bilaterally. Absent: respiratory distress, wheezes, rales, rhonchi, stridor Cardiovascular Exam: Present: regular rate, normal rhythm, normal heart sounds. Absent: systolic murmur, diastolic murmur, rubs, gallop, clicks GI/Abdominal exam: Present: soft, normal bowel sounds. Absent: distended, tenderness, guarding, rebound, rigid Rectal exam: Present: normal inspection, heme (+) stool, black stool Extremities exam: Present: normal inspection, full ROM, normal capillary refill. Absent: tenderness, pedal edema, joint swelling, calf tenderness Back exam: Present: normal inspection Neurological exam: Present: alert, oriented X3, CN II-XII intact Psychiatric exam: Present: normal affect, normal mood Skin exam: Present: warm, dry, intact, pallor. 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 Reevaluation #2: 10/25/16 14:01 I did discuss the findings with the patient has which included the knee positive stool after rectal exam. Hemoglobin level. The Coumadin level. Did discuss case with Dr. Iniguez, Dr. Chen and Dr. Doe patient will be admitted ICU he will get a blood transfusion. GI will be consulted EKG Findings - EKG Results: EKG: interpreted by ERMD, sinus rhythm (Sinus rhythm rate of 91. Interval 1:30 QRS duration 80 daily since QTC of 362/[address]-T wave configuration evidence of inferior lateral ischemia no definite ST elevations. This is compared with EKG dated 09/02/16 which does not show the prominent changes.) Medical Decision Making - Lab Data Result diagrams: 10/25/16 11:55 10/25/16 11:55 Lab Results 10/25/16 10/25/16 10/25/16 Range/Units 11:55 11:55 11:55 WBC 11.8 H (3.8-10.6) k/uL RBC 2.44 L (4.30-5.90) m/uL Hgb 7.5 L D (13.0-17.5) gm/dL Hct 22.1 L (39.0-53.0) % MCV 90.6 (80.0-100.0) fL MCH 30.6 (25.0-35.0) pg MCHC 33.8 (31.0-37.0) g/dL RDW 16.0 H (11.5-15.5) % Plt Count 293 (150-450) k/uL Neutrophils % 80 % Lymphocytes % 13 % Monocytes % 4 % Eosinophils % 1 % Basophils % 1 % Neutrophils # 9.5 H (1.3-7.7) k/uL Lymphocytes # 1.5 (1.0-4.8) k/uL Monocytes # 0.5 (0-1.0) k/uL Eosinophils # 0.1 (0-0.7) k/uL Basophils # 0.1 (0-0.2) k/uL Anisocytosis Slight PT (9.0-12.0) sec INR (<1.1) APTT (22.0-30.0) sec Sodium 137 (137-145) mmol/L Potassium 4.9 (3.5-5.1) mmol/L Chloride 101 (98-107) mmol/L Carbon Dioxide 23 (22-30) mmol/L Anion Gap 13 mmol/L BUN 42 H (9-20) mg/dL Creatinine 1.28 H (0.66-1.25) mg/dL Est GFR (MDRD) Af Amer >60 (>60 ml/min/1.73 sqM) Est GFR (MDRD) Non-Af 56 (>60 ml/min/1.73 sqM) Glucose 114 H (74-99) mg/dL Calcium 8.8 (8.4-10.2) mg/dL Magnesium 1.6 (1.6-2.3) mg/dL Total Bilirubin 0.4 (0.2-1.3) mg/dL AST 86 H (17-59) U/L ALT 38 (21-72) U/L Alkaline Phosphatase 72 (38-126) U/L Total Creatine Kinase 778 H (55-170) U/L CK-MB (CK-2) 41.4 H* (0.0-2.4) ng/mL CK-MB (CK-2) Rel Index 5.3 Troponin I 7.020 H* (0.000-0.034) ng/mL Total Protein 6.7 (6.3-8.2) g/dL Albumin 4.0 (3.5-5.0) g/dL Stool Occult Blood (Negative) Blood Type Blood Type Confirm Blood Type Recheck Antibody Screen Crossmatch Spec Expiration Date 10/25/16 10/25/16 10/25/16 Range/Units 11:55 11:55 12:55 WBC (3.8-10.6) k/uL RBC (4.30-5.90) m/uL Hgb (13.0-17.5) gm/dL Hct (39.0-53.0) % MCV (80.0-100.0) fL MCH (25.0-35.0) pg MCHC (31.0-37.0) g/dL RDW (11.5-15.5) % Plt Count (150-450) k/uL Neutrophils % % Lymphocytes % % Monocytes % % Eosinophils % % Basophils % % Neutrophils # (1.3-7.7) k/uL Lymphocytes # (1.0-4.8) k/uL Monocytes # (0-1.0) k/uL Eosinophils # (0-0.7) k/uL Basophils # (0-0.2) k/uL Anisocytosis PT >130.0 H (9.0-12.0) sec INR >10.0 H* (<1.1) APTT 41.0 H (22.0-30.0) sec Sodium (137-145) mmol/L Potassium (3.5-5.1) mmol/L Chloride (98-107) mmol/L Carbon Dioxide (22-30) mmol/L Anion Gap mmol/L BUN (9-20) mg/dL Creatinine (0.66-1.25) mg/dL Est GFR (MDRD) Af Amer (>60 ml/min/1.73 sqM) Est GFR (MDRD) Non-Af (>60 ml/min/1.73 sqM) Glucose (74-99) mg/dL Calcium (8.4-10.2) mg/dL Magnesium (1.6-2.3) mg/dL Total Bilirubin (0.2-1.3) mg/dL AST (17-59) U/L ALT (21-72) U/L Alkaline Phosphatase (38-126) U/L Total Creatine Kinase (55-170) U/L CK-MB (CK-2) (0.0-2.4) ng/mL CK-MB (CK-2) Rel Index Troponin I (0.000-0.034) ng/mL Total Protein (6.3-8.2) g/dL Albumin (3.5-5.0) g/dL Stool Occult Blood Positive (Negative) Blood Type B Positive Blood Type Confirm Blood Type Recheck CABO Indicated Antibody Screen NEGATIVE Crossmatch See Detail Spec Expiration Date 10/28/2016 - 9475 10/25/16 Range/Units 13:01 WBC (3.8-10.6) k/uL RBC (4.30-5.90) m/uL Hgb (13.0-17.5) gm/dL Hct (39.0-53.0) % MCV (80.0-100.0) fL MCH (25.0-35.0) pg MCHC (31.0-37.0) g/dL RDW (11.5-15.5) % Plt Count (150-450) k/uL Neutrophils % % Lymphocytes % % Monocytes % % Eosinophils % % Basophils % % Neutrophils # (1.3-7.7) k/uL Lymphocytes # (1.0-4.8) k/uL Monocytes # (0-1.0) k/uL Eosinophils # (0-0.7) k/uL Basophils # (0-0.2) k/uL Anisocytosis PT (9.0-12.0) sec INR (<1.1) APTT (22.0-30.0) sec Sodium (137-145) mmol/L Potassium (3.5-5.1) mmol/L Chloride (98-107) mmol/L Carbon Dioxide (22-30) mmol/L Anion Gap mmol/L BUN (9-20) mg/dL Creatinine (0.66-1.25) mg/dL Est GFR (MDRD) Af Amer (>60 ml/min/1.73 sqM) Est GFR (MDRD) Non-Af (>60 ml/min/1.73 sqM) Glucose (74-99) mg/dL Calcium (8.4-10.2) mg/dL Magnesium (1.6-2.3) mg/dL Total Bilirubin (0.2-1.3) mg/dL AST (17-59) U/L ALT (21-72) U/L Alkaline Phosphatase (38-126) U/L Total Creatine Kinase (55-170) U/L CK-MB (CK-2) (0.0-2.4) ng/mL CK-MB (CK-2) Rel Index Troponin I (0.000-0.034) ng/mL Total Protein (6.3-8.2) g/dL Albumin (3.5-5.0) g/dL Stool Occult Blood (Negative) Blood Type Blood Type Confirm B Positive Blood Type Recheck Antibody Screen Crossmatch Spec Expiration Date Critical Care Time Critical Care Time: Yes Critical Care Time: 43 minutes of critical care time which includes initial encounter with history physical lab and x-rays several reevaluation the patient. Discussion with the patient and his regarding the findings. Discussion with the admitting physician. Discussed with cardiology. Discussion with the material specialist. Admission orders and documentation of the above. Disposition Clinical Impression: Acute upper GI bleed, Coumadin toxicity, Symptomatic anemia, Non-ST elevation myocardial infarction (NSTEMI) Disposition: ADMITTED IP TO THIS [facility] Condition: Serious
[2016-10-25 12:09] LABS: Anisocytosis Slight; Basophils # (A) 0.1 k/uL (0-0.2); Basophils % (A) 1 %; CH 30.9; CHCM 34.4; Eosinophils # (A) 0.1 k/uL (0-0.7); Eosinophils % (A) 1 %; HCT 22.1 % (39.0-53.0); HDW 3.25; Luc # (Auto) 0.19; Luc % (Auto) 2; Lymphocytes # (A) 1.5 k/uL (1.0-4.8); Lymphocytes % (A) 13 %; MCH 30.6 pg (25.0-35.0); MCHC 33.8 g/dL (31.0-37.0); MCV 90.6 fL (80.0-100.0); Mean Platelet Volume 7.7; Monocytes # (A) 0.5 k/uL (0-1.0); Monocytes % (A) 4 %; Neutrophils # (A) 9.5 k/uL (1.3-7.7); Neutrophils % (A) 80 %; RBC 2.44 m/uL (4.30-5.90); WBC 11.8 k/uL (3.8-10.6); WBC (Perox) 11.23
[2016-10-25 12:15] LABS: HGB 7.5 gm/dL (13.0-17.5)
[2016-10-25 12:29] LABS: ALT 38 U/L (21-72); AST 86 U/L (17-59); Alkaline Phosphatase 72 U/L (38-126); Anion Gap 13 mmol/L; Blood Urea Nitrogen 42 mg/dL (9-20); Calcium 8.8 mg/dL (8.4-10.2); Carbon Dioxide 23 mmol/L (22-30); Chloride 101 mmol/L (98-107); Glucose 114 mg/dL (74-99); Magnesium 1.6 mg/dL (1.6-2.3); Non-African American GFR(MDRD) 56 (>60 ml/min/1.73 sqM); Potassium 4.9 mmol/L (3.5-5.1); Sodium 137 mmol/L (137-145); Total Bilirubin 0.4 mg/dL (0.2-1.3); Total Protein 6.7 g/dL (6.3-8.2)
--- NOTE | 2016-10-25 12:36 | XR ---
Abdomen HISTORY: Pain, weakness, dark tarry stool Frontal view of the abdomen on 2 images. Lung bases are clear. Patient is post median sternotomy and there are overlying cardiac leads. No jenny dent pneumoperitoneum or bowel obstruction. There are atherosclerotic vascular calcifications which a re extensive and dense. Degenerative disc changes in the visualized spine, there is a spinal curvatur e. IMPRESSION: Nonobstructive bowel gas pattern, additional findings above.
--- NOTE | 2016-10-25 12:43 | XR ---
EXAMINATION TYPE: XR chest 2V DATE OF EXAM: 10/25/2016 12:28 PM COMPARISON: Prior chest x-ray four May 2016 HISTORY: Weakness and belching TECHNIQUE: Frontal and lateral views of the chest are obtained. FINDINGS: There is no focal air space opacity, pleural effusion, or pneumothorax seen. The cardiac silhouette size is stable. Patient is post median sternotomy. Fourth rib posteriorly shows deformit y suggestive of old fracture as on prior. There are overlying cardiac leads. There are prominent lung volumes, suspect coronary artery calcifications. The osseous structures are intact. IMPRESSION: Improved aeration as compared to prior exam.
[2016-10-25 12:46] LABS: Creatine Kinase MB 41.4 ng/mL (0.0-2.4)
[2016-10-25 12:47] LABS: Troponin I 7.02 ng/mL (0.000-0.034)
[2016-10-25 12:55] LABS: INR >10.0 (<1.1); Prothrombin Time >130.0 sec (9.0-12.0)
[2016-10-25] MEDS ORDERED: NITROGLYCERIN SL TABS 0.4 MG TAB SUBLINGUAL PRN (14:03)
[2016-10-25 15:22] LABS: Glucose,Whole Blood 105 mg/dL (75-99)
[2016-10-25] MEDS: SODIUM CHLORIDE 0.9% 1,000 ML IV SCH (15:28)
[2016-10-25] MEDS ORDERED: PHYTONADIONE ORAL 5 MG/5 ML ORAL.SYRG PO STA (16:06)
[2016-10-25] MEDS: ATORVASTATIN 80 MG TAB PO SCH (16:33)
[2016-10-25] MEDS: NITROGLYCERIN OINT 1 INCH/GM PACKET TOPICAL SCH ×2 (17:47→23:32)
[2016-10-25] MEDS: INSULIN LISPRO (humaLOG) 300 UNIT/3 ML VIAL SQ SCH ×2 (17:49→20:30)
[2016-10-25 17:50] LABS: Glucose,Whole Blood 105 mg/dL (75-99)
[2016-10-25] MEDS ORDERED: NITROGLYCERIN OINT 1 INCH/GM PACKET TOPICAL SCH (18:00)
--- NOTE | 2016-10-25 18:07 | P.CNPUL ---
History of Present Illness Consult date: 10/25/16 Requesting physician: Chichi Chen Reason for consult: other (Acute GI bleeding and Coumadin coagulopathy) Chief complaint: Black stools and weakness History of present illness: This is a 66-year-old white male with history of coronary artery disease and previous CABG. History of severe systolic dysfunction, EF is between 10-15%, history of chronic atrial fibrillation this was recently diagnosed back on 06/06. Since the diagnosis of his atrial fibrillation, patient was started on Coumadin. Patient is also on multiple medications for his cardiac disease. And he usually follows up with Dr. wilcox. Since last Monday which is 4 days ago, patient has been noticing black stools. No abdominal pain, no bright red blood per rectum, no nausea no vomiting and no hematemesis. Today while he was taking a shower this morning, patient felt very weak and lightheaded. I also had some dyspnea and left shoulder pain. noted him to be very pale. Hence the patient was brought into the ER. Workup in the ER showed that the patient had a hemoglobin of 7.5. His baseline hemoglobin on 09/22/2016 was 10.5. Patient was also noted to have elevated INR of more than 10. And PTT > 130. Electrolytes were noted to be normal. However his BUN was 42 and creatinine 1.28. Troponin was also noted to be elevated at 7.020, and the patient was found to have positive stool occult blood. Hence the patient was admitted, so far he received 1 unit of packed RBCs, I plan to give him 2 units of fresh frozen plasma. Patient received 1 dose of vitamin K 5 mg orally. All along the patient was hemodynamically stable. Patient was admitted to the ICU, and I was asked to see him on consultation. At the time of my evaluation, patient denied any headache no blurred vision no dizziness. No nausea no vomiting no abdominal pain no hematemesis. Denied any chest pain. Denied any shortness of breath. Review of Systems 14 point review of systems were obtained, please refer to pertinent positives and negatives in HPI. Past Medical History Past Medical History: Atrial Fibrillation, Coronary Artery Disease (CAD), Chest Pain / Angina, Heart Failure, Diabetes Mellitus, GERD/Reflux, Hyperlipidemia, Hypertension, Musculoskeletal Disorder, Osteoarthritis (OA), Vascular Disorder Additional Past Medical History / Comment(s): Arthritis BACK. Gout. POS Gallstones. PVD. PAIN RT LEG W/ NT IN FOOT. History of Any Multi-Drug Resistant Organisms: None Reported Past Surgical History: Coronary Bypass/CABG, Heart Catheterization With Stent, Orthopedic Surgery, Tonsillectomy Additional Past Surgical History / Comment(s): Rt foot surgery. CABG 2005- triple bypass. HEART STENT X2. Attempted (RT BRACHIAL ACCESS) fem-pop ; 09/02/16 LT ANGIOGRAM,PER STAFF: PTBA W/ 1 STENT TO LT SFA. PER 09-22-16 DISCHARGE SUMMARY"BALLOON ANGIOPLASTY RT SUPERFICIAL FEM ARTERY,BALLOON ANGIOPLASTY RT COMMON FEM ARTERY AND STENTING LT ILIAC ARTERY". Past Anesthesia/Blood Transfusion Reactions: No Reported Reaction Date of Last Stent Placement:: 09/02/16 Past Psychological History: No Psychological Hx Reported Additional Psychological History / Comment(s): . Smoking Status: Former smoker Past Alcohol Use History: None Reported Additional Past Alcohol Use History / Comment(s): Pt states he started smoking about 1965, 2 PPD, quit in 2005. Past Drug Use History: None Reported - Past Family History Father Family Medical History: Vascular Disorder Additional Family Medical History / Comment(s): Father at the age of 65 yrs from heart problems. Mother Family Medical History: Pulmonary Embolus Medications and Allergies Home Medications Medication Instructions Recorded Confirmed Type Allopurinol [Zyloprim] 100 mg PO DAILY 03/16/15 10/25/16 History [place]-3 Fatty Acids/Fish Oil [Fish 1 cap PO BID 03/16/15 10/25/16 History Oil 1,000 mg Softgel] glipiZIDE [Glucotrol] 20 mg PO AC-BRKFST 03/16/15 10/25/16 History Aspirin [Adult Low Dose Aspirin EC] 81 mg PO BID 05/12/16 10/25/16 History Nitroglycerin Sl Tabs [Nitrostat] 0.4 mg SUBLINGUAL DIRECTED PRN 05/12/16 History Omeprazole [PriLOSEC] 20 mg PO AC-BID 05/12/16 10/25/16 History Cyanocobalamin [Vitamin B-12 1,000 mcg IM Q30D 05/26/16 10/25/16 History Injection] Lisinopril [Zestril] 5 mg PO DAILY@1200 08/19/16 10/25/16 History Magnesium Oxide [Mag-Ox] 400 mg PO DAILY@1200 08/19/16 10/25/16 History Metoprolol Succinate (ER) [Toprol 100 mg PO DAILY 08/19/16 10/25/16 History XL] Spironolactone [Aldactone] 12.5 mg PO DAILY 08/19/16 10/25/16 History Warfarin Sodium [Coumadin] 15 mg PO SUMOTUTHFRSA 09/28/16 10/25/16 History Warfarin [Coumadin] 10 mg PO WE 09/28/16 10/25/16 History metFORMIN HCL 2,000 mg PO BID 09/28/16 10/25/16 History Allergies Allergy/AdvReac Type Severity Reaction Status Date / Time Sulfa (Sulfonamide Allergy Rash/Hives Verified 10/25/16 11:45 Antibiotics) sulfamethoxazole Allergy Rash/Hives Verified 10/25/16 11:45 [From Bactrim] trimethoprim [From Bactrim] Allergy Rash/Hives Verified 10/25/16 11:45 Physical Exam Vitals: Vital Signs Temp Pulse Resp BP Pulse Ox 10/25/16 17:00 75 19 107/50 97 10/25/16 16:45 75 16 118/51 97 10/25/16 16:38 98.9 F 95 24 114/53 98 10/25/16 16:37 99.3 F 77 16 96/52 98 10/25/16 16:30 72 15 96/52 98 10/25/16 16:15 84 19 98/58 98 10/25/16 16:00 76 21 104/48 97 10/25/16 15:45 88 21 103/49 98 10/25/16 15:35 18 10/25/16 15:30 89 17 112/55 100 10/25/16 15:21 100 10/25/16 15:15 98.0 F 100 118/56 100 10/25/16 15:02 99.2 F 83 18 103/52 100 10/25/16 14:23 98.2 F 97 18 97/49 100 10/25/16 14:13 98.3 F 88 16 106/52 Intake and Output 10/25/16 10/25/16 10/25/16 06:59 14:59 22:59 Intake Total 920 Balance 920 Intake: IV 300 Sodium Chloride 0.9% 1, 300 000 ml @ 100 mls/hr IV . Q10H [facility] Rx#:[id number] Blood Product 620 Rc As-1 Unit 310 [id number] Rc As-1 Unit 0 [id number] Other: Voiding Method Urinal Weight 110.2 kg Patient Weight 10/26/16 06:59 Weight 110.2 kg Physical Exam: Revealed a 66-year-old white male slightly pale in no distress. HEENT:[Neck is supple.] [No neck masses.] [No thyromegaly.] [No JVD.] Chest: [Clear throughout, no crackles, no rhonchi, no wheezes.] Cardiac Exam: [Normal S1 and S2, no S3 gallop, no murmur.] Abdomen: [Soft, nontender, no megaly, no rebound, no guarding, normal bowel sounds.] Extremities: [No clubbing, no edema, no cyanosis.] Neurological Exam: [No focal neurologic deficit.] Results - Laboratory Findings CBC and BMP: 10/25/16 11:55 10/25/16 11:55 PT/INR, D-dimer PT >130.0 sec (9.0-12.0) H 10/25/16 11:55 INR >10.0 (<1.1) H* 10/25/16 11:55 Abnormal lab findings: Abnormal Labs 10/25/16 10/25/16 15:19 17:49 POC Glucose (mg/dL) 105 H 105 H - Diagnostic Findings Chest x-ray: image reviewed (No evidence of acute abnormality noted on the chest x-ray.) Additional studies: EKG showed normal sinus rhythm however he had inferolateral ST and T-wave changes consistent with ischemia. Assessment and Plan Plan: Impression: 1 acute GI bleeding most likely upper GI in nature secondary to Coumadin coagulopathy and elevated pro time and INR. 2 history of ischemic cardiomyopathy and severe systolic dysfunction. 3 history of chronic atrial fibrillation 4 history of JOIE directed cardioversion 5 history of coronary artery disease and previous CABG in 2005 at [facility] 6 history of type 2 diabetes 7 history of hyperlipidemia 8 history of hypertension. 9 possible acute non-ST elevation myocardial infarction Recommendation: Agree with the present treatment plan, hold any anticoagulation therapy for now. Address the coagulopathy with fresh frozen plasma and vitamin K, address the anemia with blood transfusion keeping a close watch for potential congestive heart failure since the patient has history of severe ischemic cardiomyopathy and LV dysfunction. Serial CBCs will be done. And we' ll address that accordingly. GI consultation and cardiac consultations were initiated. Patient will be closely monitored in the intensive care unit. Discussed his condition with him and his at bedside. Prognosis is definitely guarded. And will continue to follow closely. Addressed his treatment with the nurses at bedside. Continue care time 35 minutes. Time with Patient: Greater than 30
[2016-10-25] MEDS ORDERED: NALOXONE 0.4 MG/ML 1 ML VIAL IV PRN (18:10)
[2016-10-25 18:15] LABS: Creatine Kinase MB 77.6 ng/mL (0.0-2.4)
[2016-10-25 18:16] LABS: Troponin I 39.1 ng/mL (0.000-0.034)
[2016-10-25] MEDS ORDERED: Magnesium Replacement Protocol 1 EACH MISC MISCELLANE PRN (19:11)
--- NOTE | 2016-10-25 20:01 | CONS ---
DATE OF CONSULTATION: 66-year-old male with a known history of coronary artery disease, history of peripheral vascular disease, who presented with symptoms of weakness, dyspnea and chest discomfort. Patient has been followed by Dr. Geovanna Hendricks on a regular basis and has underwent coronary bypass grafting in 2005 with VALLE to the LAD, saphenous vein graft to the obtuse marginal branch and to the PDA. He underwent a cardiac catheterization in 2014, VALLE to LAD was patent, saphenous vein graft to the obtuse marginal branch was patent and the PDA graft was diffusely diseased. He was subsequently be admitted in March 2015 and underwent stenting of the ostium and mid left circumflex. He was admitted in April 2016 with atrial fibrillation and evidence cardiomyopathy. He underwent JOIE and cardioversion. At that time he was initiated on anticoagulation. Recently he has been complaining of significant lower extremities intermittent claudication. He was evaluated by Dr. Porras and underwent left SFA percutaneous revascularization. This morning while taking a shower he felt quite weak and dizzy, dyspneic and had symptoms of chest discomfort and arm discomfort, came into the emergency room and was noted to have significant anemia with a hemoglobin down in the 7 range. The patient is maintained on triple anticoagulation with a combination of Coumadin, aspirin and Plavix. His pain is better at this time. He denies any significant discomfort at this point. He has started to feel dizzy from Monday, start to note dark stool on Monday. He has no history of PND, orthopnea, or peripheral edema on a regular basis. He had no palpitation. The dizziness is new. Usually his breathing is stable. His coronary risk factors are remarkable for remote history of smoking. He is diabetic, hypertensive and hyperlipidemic. His medications at home included: 1. Metformin. 2. Glipizide. 3. Coumadin. 4. Spironolactone 12.5 mg daily. 5. Pravastatin 40 mg daily. 6. Metoprolol succinate 100 mg daily. 7. Lisinopril 5 mg daily. 8. Lasix 40 mg daily. 9. Plavix 75 mg daily. 10. Aspirin once a day. REVIEW OF SYSTEMS: RESPIRATORY SYSTEM: He has noted recent history of wheezing or cough. He has no history of obstructive lung disease. GI system: No recent GI bleeding. No peptic ulcer disease in the past until now; the GI bleeding is new. system: No dysuria or hematuria. Nervous system: No stroke or seizure. PAST SURGICAL HISTORY: Remarkable for coronary artery bypass grafting as noted. PHYSICAL EXAMINATION: He is a 66-year-old male, alert, oriented, in no apparent distress. Blood pressure 112/60 with a heart rate in the 90s. HEAD: Normocephalic. EYES: Sclerae anicteric. NECK: Good upstroke. No bruit, no jugular venous distention. LUNGS: Clear to auscultation. HEART: Regular rate and rhythm. S1, S2, no S3, with systolic murmur at the base. No diastolic murmur. No rub. ABDOMEN: Soft, nontender, positive bowel sounds. No organomegaly. EXTREMITIES: No edema. Decreased distal pulses bilaterally. Lab data revealed a hemoglobin of 7.5. INR about 10. BUN and creatinine 42 and 1.28. Troponin of 7.0, AST of 66, ALT 36. He is heme positive. EKG revealed a sinus mechanism with a rate of [address] segment depression in V2 through V6 and one in aVL. His chest x-ray shows no significant infiltrate. His abdominal x-ray is nonspecific. IMPRESSION: 1. Acute gastrointestinal bleeding with severe anemia related to the coagulopathy and the triple anticoagulation. 2. Evidence of non-ST segment elevation myocardial infarction could be in the circumflex territory most likely exacerbated by significant anemia. 3. Status post coronary artery bypass grafting. 4. Prior history of atrial fibrillation maintaining sinus mechanism. 5. Peripheral vascular disease, status post percutaneous revascularization. 6. Hypertension. 7. Hyperlipidemia. 8. Diabetes mellitus. RECOMMENDATIONS: From the cardiac standpoint, we will hold all the anticoagulation. His coagulopathy will be reversed. His INR will be followed closely. Patient is receiving transfusion. I will obtain echocardiogram to evaluate his left ventricle systolic function now that he is in sinus mechanism. We will continue the beta heraclio, SANCHEZ inhibitor and statin. Follow his renal function closely. Depending on his progress, further recommendation will be made. Patient is not a candidate for any intervention at this point. Thank you for this consult. We will follow with you.
[2016-10-25 20:05] LABS: Hemoglobin A1C 7.1 % (4.2-6.1)
[2016-10-25 20:28] LABS: Glucose,Whole Blood 194 mg/dL (75-99)
[2016-10-25] MEDS: PANTOPRAZOLE 40 MG/10 ML VIAL IVP SCH (20:29)
[2016-10-25] MEDS: METOPROLOL SUCCINATE (ER) 50 MG TAB.ER.24H PO SCH (20:29)
[2016-10-25] MEDS: MAGNESIUM SULFATE-D5W PMX 1 GM in DEXTROSE/WATER 1 100ML.BAG IVPB SCH ×2 (20:29→22:00)
[2016-10-25] MEDS ORDERED: PRAVASTATIN SODIUM 40 MG TAB PO SCH (21:00)
[2016-10-26 01:01] LABS: Creatine Kinase MB 81.3 ng/mL (0.0-2.4)
[2016-10-26 04:53] LABS: Basophils % (A) 0 %; CH 30.4; CHCM 34.3; Eosinophils # (A) 0.1 k/uL (0-0.7); Eosinophils % (A) 1 %; HCT 23.9 % (39.0-53.0); HDW 3.31; HGB 8.2 gm/dL (13.0-17.5); Luc # (Auto) 0.16; Luc % (Auto) 2; Lymphocytes # (A) 1.7 k/uL (1.0-4.8); Lymphocytes % (A) 17 %; MCH 30.6 pg (25.0-35.0); MCHC 34.3 g/dL (31.0-37.0); MCV 89.1 fL (80.0-100.0); Mean Platelet Volume 6.7; Monocytes # (A) 0.5 k/uL (0-1.0); Monocytes % (A) 5 %; Neutrophils # (A) 7.5 k/uL (1.3-7.7); Neutrophils % (A) 75 %; RBC 2.69 m/uL (4.30-5.90); RDW 15.8 % (11.5-15.5); WBC (Perox) 10.63
[2016-10-26 05:06] LABS: Anion Gap 10 mmol/L; Blood Urea Nitrogen 39 mg/dL (9-20); Calcium 8.6 mg/dL (8.4-10.2); Carbon Dioxide 24 mmol/L (22-30); Chloride 101 mmol/L (98-107); Cholesterol 92 mg/dL (<200); Glucose 137 mg/dL (74-99); HDL Cholesterol 21 mg/dL (40-60); Magnesium 2.1 mg/dL (1.6-2.3); Non-African American GFR(MDRD) >60 (>60 ml/min/1.73 sqM); Phosphorous 3.5 mg/dL (2.5-4.5); Potassium 4.8 mmol/L (3.5-5.1); Sodium 135 mmol/L (137-145); Triglycerides 227 mg/dL (<150)
[2016-10-26 05:13] LABS: Prothrombin Time 54.3 sec (9.0-12.0)
[2016-10-26 05:20] LABS: INR 5.4 (<1.1)
[2016-10-26 05:27] LABS: Creatine Kinase MB 58.3 ng/mL (0.0-2.4)
[2016-10-26 07:52] LABS: Glucose,Whole Blood 190 mg/dL (75-99)
[2016-10-26] MEDS: PANTOPRAZOLE 40 MG/10 ML VIAL IVP SCH ×2 (08:03→21:28)
[2016-10-26] MEDS: METOPROLOL SUCCINATE (ER) 50 MG TAB.ER.24H PO SCH ×2 (08:04→22:43)
[2016-10-26] MEDS: INSULIN LISPRO (humaLOG) 300 UNIT/3 ML VIAL SQ SCH ×4 (08:04→21:38)
[2016-10-26] MEDS: ATORVASTATIN 80 MG TAB PO SCH (08:04)
[2016-10-26] MEDS: NITROGLYCERIN OINT 1 INCH/GM PACKET TOPICAL SCH ×3 (08:05→23:45)
[2016-10-26] MEDS ORDERED: PHYTONADIONE ORAL 5 MG/5 ML ORAL.SYRG PO STA ×2 (08:20→14:40)
[2016-10-26] MEDS: SODIUM CHLORIDE 0.9% 1,000 ML IV SCH (08:58)
[2016-10-26] MEDS ORDERED: ASPIRIN 325 MG TAB PO SCH (09:00)
[2016-10-26] MEDS ORDERED: METOPROLOL SUCCINATE (ER) 50 MG TAB.ER.24H PO SCH (09:00)
--- NOTE | 2016-10-26 09:12 | PN ---
Mr. Mcknight is a 66-year-old male who presented with acute GI bleeding with dizziness and chest pain. Had evidence of myocardial infarction with ST-segment depression in the lateral leads. He is feeling better today. He has no further chest pain. His breathing has been stable. He denies any dizziness or palpitation. He received 2 units of blood yesterday. Hemodynamically, he is stable. He is on no pressor. He continues to be on Lipitor 80 mg daily, Zestril 5 mg daily, metoprolol succinate 50 mg twice a day. He received vitamin K yesterday. PHYSICAL EXAMINATION: Blood pressure 117/50 with a heart rate in the 80s. LUNGS: No wheezes. HEART: Regular rate and rhythm. S1, S2, no S3, no rub. ABDOMEN: Soft, nontender. EXTREMITIES: No edema. Lab data revealed a BUN and creatinine of 39 and 1.1. Potassium 4.8, INR of 5.4. Hemoglobin of 8.2. His troponin peaked at 86. IMPRESSION: 1. Status post non-ST segment elevation myocardial infarction most likely in the circumflex territory. 2. Severe gastrointestinal bleeding with coagulopathy, being corrected. 3. Paroxysmal atrial fibrillation. 4. Peripheral vascular disease. 5. Hyperlipidemia. RECOMMENDATION: From the cardiac standpoint, he will receive another dose of vitamin K. Unfortunately, because of the recent bleeding, he is not a candidate for any aggressive cardiac work-up. Will continue supportive care. Depending on the trend of his blood pressure, further adjustment of his treatment will be done.
--- NOTE | 2016-10-26 10:14 | P.CONS ---
History of Present Illness - Reason for Consult Consult date: 10/26/16 GI bleed Requesting physician: Chichi Chen - History of Present Illness 66-year-old gentleman patient of Dr. Hall with a past medical history of CAD, CABG, PCI stent, atrial fibrillation, hypertension, cholelithiasis, diabetes mellitus, obesity, long-standing EtOH dependency quit May 2016, hyperlipidemia, GERD, osteoarthritis, and peripheral vascular disease. Consultation requested for GI bleed. Admitted with elevated cardiac profile/ acute NV, elevated PT/INR, weakness, lightheadedness, left shoulder pain with shortness of breath. Black stools 1-2 times daily since Monday. No history of GI bleeding, peptic ulcer disease, or EGD. Colonoscopy several years ago and his memory was on remarkable. Home medications include Coumadin, baby aspirin, and Plavix. Denies coffee ground emesis hematemesis or gross hematochezia. Denies epigastric or abdominal pain, or dyspepsia. Hemoccult stool positive. Admission white count 11.8 currently 10. Hemoglobin 7.5 MCV 90. Received 2 units of blood current hemoglobin 8.2. INR greater than 10. Vitamin K administered repeat INR 5.4. Last black stool yesterday morning. Admission troponin 7.0 increased to 86 and presently 62. Denies fever, chills, or weight loss. Denies excessive usage of aspirin or NSAIDs. Patient quit drinking beer in May 2016. He drank 2-3 times a week sometimes weekends for greater than 30 years. Review of Systems Constitutional: Denies fever, chills, sweats, weight gain, or loss. HEENT: Negative for migraines, blurred vision or loss, earaches, drainage, tinnitus, oral mucosal lesions, dysphagia, or odynophagia. Cardiac: CAD. PCI stent. PVD with peripheral stent. Hyperlipidemia. Atrial fibrillation. Chest pain. Heart failure. Respiratory: Negative for shortness of breath, hemoptysis, cough, or sputum production. Gastrointestinal: See HPI for pertinent findings. Genitourinary: Negative for hematuria, urgency, frequency, polyuria, dysuria, or penile discharge. Musculoskeletal: Chronic muscle aches, osteo-arthritis. Neurologic: Negative for stroke or TIA. Endocrine: Diabetes mellitus. Negative for thyroid problems. Skin: Negative for rash or itching. Psychiatric: Negative history for depression and anxiety All systems: negative (See HPI) Past Medical History Past Medical History: Atrial Fibrillation, Coronary Artery Disease (CAD), Chest Pain / Angina, Heart Failure, Diabetes Mellitus, GERD/Reflux, Hyperlipidemia, Hypertension, Musculoskeletal Disorder, Osteoarthritis (OA), Vascular Disorder Additional Past Medical History / Comment(s): Arthritis BACK. Gout. POS Gallstones. PVD. PAIN RT LEG W/ NT IN FOOT. History of Any Multi-Drug Resistant Organisms: None Reported Past Surgical History: Coronary Bypass/CABG, Heart Catheterization With Stent, Orthopedic Surgery, Tonsillectomy Additional Past Surgical History / Comment(s): Rt foot surgery. CABG 2005- triple bypass. HEART STENT X2. Attempted (RT BRACHIAL ACCESS) fem-pop ; 09/02/16 LT ANGIOGRAM,PER STAFF: PTBA W/ 1 STENT TO LT SFA. PER 09-22-16 DISCHARGE SUMMARY"BALLOON ANGIOPLASTY RT SUPERFICIAL FEM ARTERY,BALLOON ANGIOPLASTY RT COMMON FEM ARTERY AND STENTING LT ILIAC ARTERY". Past Anesthesia/Blood Transfusion Reactions: No Reported Reaction Date of Last Stent Placement:: 09/02/16 Past Psychological History: No Psychological Hx Reported Additional Psychological History / Comment(s): . Smoking Status: Former smoker Past Alcohol Use History: None Reported Additional Past Alcohol Use History / Comment(s): Pt states he started smoking about 1965, 2 PPD, quit in 2005. Past Drug Use History: None Reported - Past Family History Father Family Medical History: Vascular Disorder Additional Family Medical History / Comment(s): Father at the age of 65 yrs from heart problems. Mother Family Medical History: Pulmonary Embolus Medications and Allergies Home Medications Medication Instructions Recorded Confirmed Type Allopurinol [Zyloprim] 100 mg PO DAILY 03/16/15 10/25/16 History [place]-3 Fatty Acids/Fish Oil [Fish 1 cap PO BID 03/16/15 10/25/16 History Oil 1,000 mg Softgel] glipiZIDE [Glucotrol] 20 mg PO AC-BRKFST 03/16/15 10/25/16 History Aspirin [Adult Low Dose Aspirin EC] 81 mg PO BID 05/12/16 10/25/16 History Nitroglycerin Sl Tabs [Nitrostat] 0.4 mg SUBLINGUAL DIRECTED PRN 05/12/16 History Omeprazole [PriLOSEC] 20 mg PO AC-BID 05/12/16 10/25/16 History Cyanocobalamin [Vitamin B-12 1,000 mcg IM Q30D 05/26/16 10/25/16 History Injection] Lisinopril [Zestril] 5 mg PO DAILY@1200 08/19/16 10/25/16 History Magnesium Oxide [Mag-Ox] 400 mg PO DAILY@1200 08/19/16 10/25/16 History Metoprolol Succinate (ER) [Toprol 100 mg PO DAILY 08/19/16 10/25/16 History XL] Spironolactone [Aldactone] 12.5 mg PO DAILY 08/19/16 10/25/16 History Warfarin Sodium [Coumadin] 15 mg PO SUMOTUTHFRSA 09/28/16 10/25/16 History Warfarin [Coumadin] 10 mg PO WE 09/28/16 10/25/16 History metFORMIN HCL 2,000 mg PO BID 09/28/16 10/25/16 History Allergies Allergy/AdvReac Type Severity Reaction Status Date / Time Sulfa (Sulfonamide Allergy Rash/Hives Verified 10/25/16 11:45 Antibiotics) sulfamethoxazole Allergy Rash/Hives Verified 10/25/16 11:45 [From Bactrim] trimethoprim [From Bactrim] Allergy Rash/Hives Verified 10/25/16 11:45 Physical Exam Vitals: Vital Signs Temp Pulse Resp BP Pulse Ox 10/26/16 09:00 85 16 119/56 97 10/26/16 08:00 97.9 F 84 16 117/57 96 10/26/16 07:00 124 H 29 H 101/49 92 L 10/26/16 06:00 73 19 122/51 97 10/26/16 05:00 85 19 119/53 96 10/26/16 04:00 98.2 F 85 22 119/52 96 10/26/16 03:00 90 24 117/56 96 10/26/16 02:00 80 20 118/51 96 10/26/16 01:00 73 20 111/55 96 10/26/16 00:03 82 21 112/49 96 10/26/16 00:00 97.9 F 84 18 112/49 96 10/25/16 23:00 93 28 H 126/56 96 10/25/16 22:00 73 18 133/54 96 10/25/16 21:00 82 16 134/55 96 10/25/16 20:00 98.3 F 91 18 115/58 97 10/25/16 19:00 78 26 H 104/50 97 10/25/16 18:45 76 17 110/56 98 10/25/16 18:30 94 21 110/52 99 10/25/16 18:15 83 19 112/51 98 10/25/16 18:02 76 16 118/56 98 10/25/16 18:00 85 17 137/56 98 10/25/16 17:52 98.9 F 99 14 110/52 98 10/25/16 17:45 74 16 114/53 97 10/25/16 17:30 76 18 111/59 98 10/25/16 17:15 93 16 134/61 98 10/25/16 17:00 75 19 107/50 97 10/25/16 16:45 75 16 118/51 97 10/25/16 16:38 98.9 F 95 24 114/53 98 10/25/16 16:37 99.3 F 77 16 96/52 98 10/25/16 16:30 72 15 96/52 98 10/25/16 16:15 84 19 98/58 98 10/25/16 16:00 76 21 104/48 97 10/25/16 15:45 88 21 103/49 98 10/25/16 15:35 18 10/25/16 15:30 89 17 112/55 100 10/25/16 15:21 100 10/25/16 15:15 98.0 F 100 118/56 100 10/25/16 15:02 99.2 F 83 18 103/52 100 10/25/16 14:23 98.2 F 97 18 97/49 100 10/25/16 14:13 98.3 F 88 16 106/52 Intake and Output 10/25/16 10/26/16 10/26/16 22:59 06:59 14:59 Intake Total 1630 450 70 Output Total 1400 1650 Balance 230 -1200 70 Intake: IV 500 450 70 Sodium Chloride 0.9% 1, 500 450 70 000 ml @ 50 mls/hr IV . Q20H [facility] Rx#:[id number] Intake, IV Titration 200 Amount Magnesium Sulfate-D5w Pmx 200 1 gm In Dextrose/Water 1 100ml.bag @ 100 mls/hr IVPB Q1H [facility] Rx#: [id number] Blood Product 930 Rc As-1 Unit 310 [id number] Rc As-1 Unit 310 [id number] Output: Urine 1400 1650 Other: Voiding Method Urinal Urinal Urinal Weight 110.2 kg 110.1 kg General appearance: The patient is alert, oriented, in no acute distress. HET: Head is normocephalic and atraumatic. Pupils are equal and reactive. Oropharynx is clear without lesions. Neck: Supple without lymphadenopathy. Trachea midline. Heart: S1 S2. Regular rate and rhythm. Lungs: No crackles or wheezes are heard. Abdomen: Soft, nontender, nondistended with bowel sounds. No peritoneal signs. No palpable organomegaly or masses. Extremities: Normal skin color and turgor. No cyanosis, rash, ulceration, clubbing, or edema. Radial and pedal pulses are 2/4 bilaterally. Neurological: No focal deficits. Strength and sensation are grossly intact. Results CBC & Chem 7: 10/26/16 04:16 10/26/16 04:16 Labs: Abnormal Lab Results - Last 24 Hours (Table) 10/25/16 10/25/16 10/25/16 Range/Units 15:19 17:07 17:49 RBC (4.30-5.90) m/uL Hgb (13.0-17.5) gm/dL Hct (39.0-53.0) % RDW (11.5-15.5) % PT (9.0-12.0) sec INR (<1.1) Sodium (137-145) mmol/L BUN (9-20) mg/dL Glucose (74-99) mg/dL POC Glucose (mg/dL) 105 H 105 H (75-99) mg/dL Hemoglobin A1c (4.2-6.1) % Total Creatine Kinase 1591 H (55-170) U/L CK-MB (CK-2) 77.6 H* (0.0-2.4) ng/mL Troponin I 39.100 H* (0.000-0.034) ng/mL Triglycerides (<150) mg/dL HDL Cholesterol (40-60) mg/dL 10/25/16 10/25/16 10/25/16 Range/Units 17:55 20:26 23:47 RBC (4.30-5.90) m/uL Hgb (13.0-17.5) gm/dL Hct (39.0-53.0) % RDW (11.5-15.5) % PT (9.0-12.0) sec INR (<1.1) Sodium (137-145) mmol/L BUN (9-20) mg/dL Glucose (74-99) mg/dL POC Glucose (mg/dL) 194 H (75-99) mg/dL Hemoglobin A1c 7.1 H (4.2-6.1) % Total Creatine Kinase 2323 H (55-170) U/L CK-MB (CK-2) 81.3 H* (0.0-2.4) ng/mL Troponin I 86.000 H* (0.000-0.034) ng/mL Triglycerides (<150) mg/dL HDL Cholesterol (40-60) mg/dL 10/26/16 10/26/16 10/26/16 Range/Units 04:16 04:16 04:16 RBC 2.69 L (4.30-5.90) m/uL Hgb 8.2 L (13.0-17.5) gm/dL Hct 23.9 L (39.0-53.0) % RDW 15.8 H (11.5-15.5) % PT 54.3 H (9.0-12.0) sec INR 5.4 H* (<1.1) Sodium 135 L (137-145) mmol/L BUN 39 H (9-20) mg/dL Glucose 137 H (74-99) mg/dL POC Glucose (mg/dL) (75-99) mg/dL Hemoglobin A1c (4.2-6.1) % Total Creatine Kinase (55-170) U/L CK-MB (CK-2) (0.0-2.4) ng/mL Troponin I (0.000-0.034) ng/mL Triglycerides 227 H (<150) mg/dL HDL Cholesterol 21 L (40-60) mg/dL 10/26/16 10/26/16 Range/Units 04:16 07:50 RBC (4.30-5.90) m/uL Hgb (13.0-17.5) gm/dL Hct (39.0-53.0) % RDW (11.5-15.5) % PT (9.0-12.0) sec INR (<1.1) Sodium (137-145) mmol/L BUN (9-20) mg/dL Glucose (74-99) mg/dL POC Glucose (mg/dL) 190 H (75-99) mg/dL Hemoglobin A1c (4.2-6.1) % Total Creatine Kinase (55-170) U/L CK-MB (CK-2) 58.3 H* (0.0-2.4) ng/mL Troponin I 62.000 H* (0.000-0.034) ng/mL Triglycerides (<150) mg/dL HDL Cholesterol (40-60) mg/dL Assessment and Plan (1) Acute upper GI bleed Narrative/Plan: Melena possible peptic ulcer disease possible esophageal varices with long- standing history of EtOH dependency Status: Acute (2) Coumadin toxicity Status: Acute (3) Non-ST elevation myocardial infarction (NSTEMI) Status: Acute (4) H/O ETOH abuse Status: Resolved (5) Acute blood loss anemia Status: Acute (6) History of atrial fibrillation Status: Acute (7) History of coronary artery disease Status: Acute (8) History of peripheral vascular disease Status: Acute Plan: 1. Correction of INR. 2. Full liquid diet. 3. CBC monitoring. 4. EGD evaluation planned however contingent on correction of INR; target range 1.5 or less. 5. IV Protonix 40 mg twice daily. Thank you for this kind referral and the opportunity to participate in the care of your patient. This consultation was discussed with Dr. Bell. The impression and plan of care have been directed as dictated.
--- NOTE | 2016-10-26 10:55 | ECHOF ---
Referral Reason:cad MEASUREMENTS -------- HEIGHT: 175.3 cm WEIGHT: 108.9 kg BP: 112/55 Ao Diam: 3.3 cm (2.0 - 3.7) AV Cusp: 2.5 cm (1.5 - 2.6) LA Diam: 2.5 cm (2.7 - 3.8) MV EXCURSION: 11.540 mm (> 18.000) MV EF SLOPE: 93 mm/s (70 - 150) EPSS: 0.6 cm MV E Sidney: 1.20 m/s MV DecT: 119 ms MV A [place]: 0.96 m/s MV E/A Ratio: 1.25 RAP: 5.00 mmHg RVSP: 8.14 mmHg FINDINGS -------- Sinus rhythm. This was a technically difficult study with suboptimal views. Overall left ventricular systolic function is mild-moderately impaired with, an EF between 40 - 45 %. Restrictive LV filling pattern, consistent with elevated LA pressure 23.41. Inferiorlateral Hypokinesis The RV was not well visualized. The left atrium was not well visualized. The right atrium was not well visualized. 1.5mg of Definity was utilized for enhancement of images The aortic valve was not well visualized. There is trace mitral regurgitation. Trace tricuspid regurgitation present. The right ventricular systolic pressure, as measured by Doppler, is 8.14mmHg. Pulmonic valve appears structurally normal. The inferior vena cava is dilated with no significant inspiratory collapse which is consistent estimated right atrial pressure of >20 mmHg. CONCLUSIONS -------- 1. Sinus rhythm. 2. There is trace mitral regurgitation. 3. Trace tricuspid regurgitation present. 4. The right ventricular systolic pressure, as measured by Doppler, is 8.14mmHg. 5. Pulmonic valve appears structurally normal. 6. The inferior vena cava is dilated with no significant inspiratory collapse which is consistent estimated right atrial pressure of >20 mmHg. 7. This was a technically difficult study with suboptimal views. 8. Overall left ventricular systolic function is mild-moderately impaired with, an EF between 40 - 45 %. 9. Inferiorlateral Hypokinesis 10. The RV was not well visualized. 11. The left atrium was not well visualized. 12. The right atrium was not well visualized. 13. 1.5mg of Definity was utilized for enhancement of images 14. The aortic valve was not well visualized. MANAGER TELEMETRY: Radha Bragg RDCS
[2016-10-26] MEDS: LISINOPRIL 5 MG TAB PO SCH (12:00)
[2016-10-26] MEDS: MAGNESIUM OXIDE 400 MG TAB PO SCH (12:00)
[2016-10-26 12:23] LABS: Glucose,Whole Blood 222 mg/dL (75-99)
--- NOTE | 2016-10-26 13:14 | P.HPIM ---
History of Present Illness H&P Date: 10/26/16 Chief Complaint: Black stool This is a 66-year-old gentleman with very complex past medical history who presented to the emergency room with black stool. Patient is known to have chronic atrial fibrillation and is maintained on Coumadin chronically. For the past couple of days he noted that his stool is black in color. He was progressively getting weak and feeling dizzy. He presented to the emergency room and was noted to have elevated INR above 10. His hemoglobin was in the 7 range. Hemoccult test was positive. Patient remained hemodynamically stable but his blood pressure was on the lower side patient received 2 unit blood transfusion the intensive care unit for further evaluation. He is awake and alert today. He received vitamin K in the emergency room and repeat INR today is around 5. No further bleeding. Review of Systems Review of system: 14 points review of systems were obtained and were negative except to what were mentioned in the HPI. Past Medical History Past Medical History: Atrial Fibrillation, Coronary Artery Disease (CAD), Chest Pain / Angina, Heart Failure, Diabetes Mellitus, GERD/Reflux, Hyperlipidemia, Hypertension, Musculoskeletal Disorder, Osteoarthritis (OA), Vascular Disorder Additional Past Medical History / Comment(s): Arthritis BACK. Gout. POS Gallstones. PVD. PAIN RT LEG W/ NT IN FOOT. History of Any Multi-Drug Resistant Organisms: None Reported Past Surgical History: Coronary Bypass/CABG, Heart Catheterization With Stent, Orthopedic Surgery, Tonsillectomy Additional Past Surgical History / Comment(s): Rt foot surgery. CABG 2005- triple bypass. HEART STENT X2. Attempted (RT BRACHIAL ACCESS) fem-pop ; 09/02/16 LT ANGIOGRAM,PER STAFF: PTBA W/ 1 STENT TO LT SFA. PER 09-22-16 DISCHARGE SUMMARY"BALLOON ANGIOPLASTY RT SUPERFICIAL FEM ARTERY,BALLOON ANGIOPLASTY RT COMMON FEM ARTERY AND STENTING LT ILIAC ARTERY". Past Anesthesia/Blood Transfusion Reactions: No Reported Reaction Date of Last Stent Placement:: 09/02/16 Past Psychological History: No Psychological Hx Reported Additional Psychological History / Comment(s): . Smoking Status: Former smoker Past Alcohol Use History: None Reported Additional Past Alcohol Use History / Comment(s): Pt states he started smoking about 1965, 2 PPD, quit in 2005. Past Drug Use History: None Reported - Past Family History Father Family Medical History: Vascular Disorder Additional Family Medical History / Comment(s): Father at the age of 65 yrs from heart problems. Mother Family Medical History: Pulmonary Embolus Medications and Allergies Home Medications Medication Instructions Recorded Confirmed Type Allopurinol [Zyloprim] 100 mg PO DAILY 03/16/15 10/25/16 History [place]-3 Fatty Acids/Fish Oil [Fish 1 cap PO BID 03/16/15 10/25/16 History Oil 1,000 mg Softgel] glipiZIDE [Glucotrol] 20 mg PO AC-BRKFST 03/16/15 10/25/16 History Aspirin [Adult Low Dose Aspirin EC] 81 mg PO BID 05/12/16 10/25/16 History Nitroglycerin Sl Tabs [Nitrostat] 0.4 mg SUBLINGUAL DIRECTED PRN 05/12/16 History Omeprazole [PriLOSEC] 20 mg PO AC-BID 05/12/16 10/25/16 History Cyanocobalamin [Vitamin B-12 1,000 mcg IM Q30D 05/26/16 10/25/16 History Injection] Lisinopril [Zestril] 5 mg PO DAILY@1200 08/19/16 10/25/16 History Magnesium Oxide [Mag-Ox] 400 mg PO DAILY@1200 08/19/16 10/25/16 History Metoprolol Succinate (ER) [Toprol 100 mg PO DAILY 08/19/16 10/25/16 History XL] Spironolactone [Aldactone] 12.5 mg PO DAILY 08/19/16 10/25/16 History Warfarin Sodium [Coumadin] 15 mg PO SUMOTUTHFRSA 09/28/16 10/25/16 History Warfarin [Coumadin] 10 mg PO WE 09/28/16 10/25/16 History metFORMIN HCL 2,000 mg PO BID 09/28/16 10/25/16 History Allergies Allergy/AdvReac Type Severity Reaction Status Date / Time Sulfa (Sulfonamide Allergy Rash/Hives Verified 10/25/16 11:45 Antibiotics) sulfamethoxazole Allergy Rash/Hives Verified 10/25/16 11:45 [From Bactrim] trimethoprim [From Bactrim] Allergy Rash/Hives Verified 10/25/16 11:45 Physical Exam Vitals: Vital Signs Temp Pulse Resp BP Pulse Ox 10/26/16 12:00 97.8 F 102 H 21 132/59 98 10/26/16 11:16 11 L 10/26/16 11:00 79 11 L 117/48 95 10/26/16 10:00 105 H 20 146/64 96 10/26/16 09:00 85 16 119/56 97 10/26/16 08:00 97.9 F 84 16 117/57 96 10/26/16 07:00 124 H 29 H 101/49 92 L 10/26/16 06:00 73 19 122/51 97 10/26/16 05:00 85 19 119/53 96 10/26/16 04:00 98.2 F 85 22 119/52 96 10/26/16 03:00 90 24 117/56 96 10/26/16 02:00 80 20 118/51 96 10/26/16 01:00 73 20 111/55 96 10/26/16 00:03 82 21 112/49 96 10/26/16 00:00 97.9 F 84 18 112/49 96 10/25/16 23:00 93 28 H 126/56 96 10/25/16 22:00 73 18 133/54 96 10/25/16 21:00 82 16 134/55 96 10/25/16 20:00 98.3 F 91 18 115/58 97 10/25/16 19:00 78 26 H 104/50 97 10/25/16 18:45 76 17 110/56 98 10/25/16 18:30 94 21 110/52 99 10/25/16 18:15 83 19 112/51 98 10/25/16 18:02 76 16 118/56 98 10/25/16 18:00 85 17 137/56 98 10/25/16 17:52 98.9 F 99 14 110/52 98 10/25/16 17:45 74 16 114/53 97 10/25/16 17:30 76 18 111/59 98 10/25/16 17:15 93 16 134/61 98 10/25/16 17:00 75 19 107/50 97 10/25/16 16:45 75 16 118/51 97 10/25/16 16:38 98.9 F 95 24 114/53 98 10/25/16 16:37 99.3 F 77 16 96/52 98 10/25/16 16:30 72 15 96/52 98 10/25/16 16:15 84 19 98/58 98 10/25/16 16:00 76 21 104/48 97 10/25/16 15:45 88 21 103/49 98 10/25/16 15:35 18 10/25/16 15:30 89 17 112/55 100 10/25/16 15:21 100 10/25/16 15:15 98.0 F 100 118/56 100 10/25/16 15:02 99.2 F 83 18 103/52 100 10/25/16 14:23 98.2 F 97 18 97/49 100 10/25/16 14:13 98.3 F 88 16 106/52 Intake and Output 10/25/16 10/26/16 10/26/16 22:59 06:59 14:59 Intake Total 1630 450 150 Output Total 1400 1650 Balance 230 -1200 150 Intake: IV 500 450 150 Sodium Chloride 0.9% 1, 500 450 150 000 ml @ 50 mls/hr IV . Q20H [facility] Rx#:[id number] Intake, IV Titration 200 Amount Magnesium Sulfate-D5w Pmx 200 1 gm In Dextrose/Water 1 100ml.bag @ 100 mls/hr IVPB Q1H [facility] Rx#: [id number] Blood Product 930 Rc As-1 Unit 310 [id number] Rc As-1 Unit 310 [id number] Output: Urine 1400 1650 Other: Voiding Method Urinal Urinal Urinal # Voids 1 # Bowel Movements 1 Weight 110.2 kg 110.1 kg General: The patient is awake and alert, in no distress Eye: there is normal conjunctiva bilaterally. Neck: The neck is supple, there is no JVD. Cardiovascular: Normal S1-S2, no S3-S4, no murmurs. Respiratory: Lungs clear to auscultation bilaterally Gastrointestinal: Abdomen is soft, nontender Musculoskeletal: There is no pedal edema. Neurological:. Speech is normal. Skin: Skin is warm and dry Results CBC & Chem 7: 10/26/16 04:16 10/26/16 04:16 Labs: Abnormal Lab Results - Last 24 Hours (Table) 10/25/16 10/25/16 10/25/16 Range/Units 15:19 17:07 17:49 RBC (4.30-5.90) m/uL Hgb (13.0-17.5) gm/dL Hct (39.0-53.0) % RDW (11.5-15.5) % PT (9.0-12.0) sec INR (<1.1) Sodium (137-145) mmol/L BUN (9-20) mg/dL Glucose (74-99) mg/dL POC Glucose (mg/dL) 105 H 105 H (75-99) mg/dL Hemoglobin A1c (4.2-6.1) % Total Creatine Kinase 1591 H (55-170) U/L CK-MB (CK-2) 77.6 H* (0.0-2.4) ng/mL Troponin I 39.100 H* (0.000-0.034) ng/mL Triglycerides (<150) mg/dL HDL Cholesterol (40-60) mg/dL 10/25/16 10/25/16 10/25/16 Range/Units 17:55 20:26 23:47 RBC (4.30-5.90) m/uL Hgb (13.0-17.5) gm/dL Hct (39.0-53.0) % RDW (11.5-15.5) % PT (9.0-12.0) sec INR (<1.1) Sodium (137-145) mmol/L BUN (9-20) mg/dL Glucose (74-99) mg/dL POC Glucose (mg/dL) 194 H (75-99) mg/dL Hemoglobin A1c 7.1 H (4.2-6.1) % Total Creatine Kinase 2323 H (55-170) U/L CK-MB (CK-2) 81.3 H* (0.0-2.4) ng/mL Troponin I 86.000 H* (0.000-0.034) ng/mL Triglycerides (<150) mg/dL HDL Cholesterol (40-60) mg/dL 10/26/16 10/26/16 10/26/16 Range/Units 04:16 04:16 04:16 RBC 2.69 L (4.30-5.90) m/uL Hgb 8.2 L (13.0-17.5) gm/dL Hct 23.9 L (39.0-53.0) % RDW 15.8 H (11.5-15.5) % PT 54.3 H (9.0-12.0) sec INR 5.4 H* (<1.1) Sodium 135 L (137-145) mmol/L BUN 39 H (9-20) mg/dL Glucose 137 H (74-99) mg/dL POC Glucose (mg/dL) (75-99) mg/dL Hemoglobin A1c (4.2-6.1) % Total Creatine Kinase (55-170) U/L CK-MB (CK-2) (0.0-2.4) ng/mL Troponin I (0.000-0.034) ng/mL Triglycerides 227 H (<150) mg/dL HDL Cholesterol 21 L (40-60) mg/dL 10/26/16 10/26/16 10/26/16 Range/Units 04:16 07:50 12:10 RBC (4.30-5.90) m/uL Hgb (13.0-17.5) gm/dL Hct (39.0-53.0) % RDW (11.5-15.5) % PT (9.0-12.0) sec INR (<1.1) Sodium (137-145) mmol/L BUN (9-20) mg/dL Glucose (74-99) mg/dL POC Glucose (mg/dL) 190 H 222 H (75-99) mg/dL Hemoglobin A1c (4.2-6.1) % Total Creatine Kinase (55-170) U/L CK-MB (CK-2) 58.3 H* (0.0-2.4) ng/mL Troponin I 62.000 H* (0.000-0.034) ng/mL Triglycerides (<150) mg/dL HDL Cholesterol (40-60) mg/dL Thrombosis Risk Factor Assmnt - Choose All That Apply Any of the Below Risk Factors Present?: Yes Each Factor Represents 1 point: Obesity (BMI >25) Other Risk Factors: Yes Each Risk Factor Represents 2 Points: Age 61-74 years Each Risk Factor Represents 3 Points: Family history of DVT/PE Other congenital or acquired thrombophilia - If yes, enter type in comment: No Thrombosis Risk Factor Assessment Total Risk Factor Score: 6 Thrombosis Risk Factor Assessment Level: High Risk Assessment and Plan Plan: 1. Upper GI bleed: Currently on IV Protonix. Seen and evaluated by GI. Plan for EGD tomorrow. 2. Acute blood loss anemia: Status post 2 units PRBC transfusion. We will continue to monitor CBC daily. 3. Chronic atrial fibrillation: Heart rate well controlled. On anticoagulation with Coumadin 4. Coagulopathy with INR above 10 on presentation now trending down status post 10 mg of vitamin K since admission 5. Type II non-ST elevation NV: Most likely secondary to supply/demand mismatch. Seen and evaluated by cardiology. Continue optimize medical management. Echocardiogram ordered. 6. Coronary artery disease status post bypass surgery in 2005 with left heart catheterization and stenting in 2014 7. Underlying ischemic cardiomyopathy now compensated with no evidence of exacerbation 8. Essential hypertension: Blood pressure well-controlled Status post percutaneous revascularization 9. DVT prophylaxis with SCDs Patient is hemodynamically stable. He may be transferred outside of the intensive care. Continue IV Protonix. Monitor for evidence of bleeding. Transfuse as needed for hemoglobin below 7 if no signs of ongoing bleed. Repeat lab work in the morning. Appreciate category consultant's recommendations. Nothing by mouth after midnight for possible EGD.
--- NOTE | 2016-10-26 14:40 | P.PN ---
Subjective Principal diagnosis: Acute GI bleeding and acute non-ST elevation myocardial infarction. History of present illness: This is a 66-year-old white male with history of coronary artery disease and previous CABG. History of severe systolic dysfunction, EF is between 10-15%, history of chronic atrial fibrillation this was recently diagnosed back on 06/06. Since the diagnosis of his atrial fibrillation, patient was started on Coumadin. Patient is also on multiple medications for his cardiac disease. And he usually follows up with Dr. wilcox. Since last Monday which is 4 days ago, patient has been noticing black stools. No abdominal pain, no bright red blood per rectum, no nausea no vomiting and no hematemesis. Today while he was taking a shower this morning, patient felt very weak and lightheaded. I also had some dyspnea and left shoulder pain. noted him to be very pale. Hence the patient was brought into the ER. Workup in the ER showed that the patient had a hemoglobin of 7.5. His baseline hemoglobin on 09/22/2016 was 10.5. Patient was also noted to have elevated INR of more than 10. And PTT > 130. Electrolytes were noted to be normal. However his BUN was 42 and creatinine 1.28. Troponin was also noted to be elevated at 7.020, and the patient was found to have positive stool occult blood. Hence the patient was admitted, so far he received 1 unit of packed RBCs, I plan to give him 2 units of fresh frozen plasma. Patient received 1 dose of vitamin K 5 mg orally. All along the patient was hemodynamically stable. Patient was admitted to the ICU, and I was asked to see him on consultation. At the time of my evaluation, patient denied any headache no blurred vision no dizziness. No nausea no vomiting no abdominal pain no hematemesis. Denied any chest pain. Denied any shortness of breath. Patient was reevaluated today on 10/26/2016, seems to be doing quite well. So far the patient received 2 units of packed RBCs. No fresh frozen plasma was given. He only had vitamin K, INR is down to 5.4. Patient does not have any active bleeding at this point, and hemoglobin is 8.2 today. His CPK and troponins skyrocketed, and that being addressed by cardiology on the case. Clearly the patient cannot be on anticoagulation therapy at this point. He was also seen by gastroenterology, no immediate plans to perform EGD or colonoscopy. In the meantime I the Protonix was advised to continue and shoot for a target range of INR of 1.5. Objective - Vital Signs Vital signs: Vital Signs Temp 97.8 F 10/26/16 12:00 Pulse 85 10/26/16 14:00 Resp 21 10/26/16 14:00 BP 123/54 10/26/16 14:00 Pulse Ox 97 10/26/16 14:00 Intake & Output 10/25/16 10/26/16 10/26/16 18:59 06:59 18:59 Intake Total 1020 1060 170 Output Total 3050 Balance 0 -1989 170 Weight 110.2 kg 110.1 kg Intake: IV 400 550 170 Sodium Chloride 0.9% 1, 400 550 170 000 ml @ 50 mls/hr IV . Q20H [facility] Rx#:[id number] Intake, IV Titration 200 Amount Magnesium Sulfate-D5w Pmx 200 1 gm In Dextrose/Water 1 100ml.bag @ 100 mls/hr IVPB Q1H [facility] Rx#: [id number] Blood Product 620 310 Rc As-1 Unit 310 [id number] Rc As-1 Unit 0 310 [id number] Output: Urine 3050 Other: Voiding Method Urinal Urinal Urinal # Voids 1 # Bowel Movements 1 - Exam Physical Exam: Revealed a 66-year-old white male in no distress HEENT:[Neck is supple.] [No neck masses.] [No thyromegaly.] [No JVD.] Chest: [Clear throughout, no crackles, no rhonchi, no wheezes.] Cardiac Exam: [Normal S1 and S2, no S3 gallop, 2/6 systolic murmur throughout the precordium.] Abdomen: [Soft, nontender, no megaly, no rebound, no guarding, normal bowel sounds.] Extremities: [No clubbing, no edema, no cyanosis.] Neurological Exam: [No focal neurologic deficit.] - Labs CBC & Chem 7: 10/26/16 04:16 10/26/16 04:16 Labs: Abnormal Lab Results - Last 24 Hours (Table) 10/25/16 10/25/16 10/25/16 Range/Units 15:19 17:07 17:49 RBC (4.30-5.90) m/uL Hgb (13.0-17.5) gm/dL Hct (39.0-53.0) % RDW (11.5-15.5) % PT (9.0-12.0) sec INR (<1.1) Sodium (137-145) mmol/L BUN (9-20) mg/dL Glucose (74-99) mg/dL POC Glucose (mg/dL) 105 H 105 H (75-99) mg/dL Hemoglobin A1c (4.2-6.1) % Total Creatine Kinase 1591 H (55-170) U/L CK-MB (CK-2) 77.6 H* (0.0-2.4) ng/mL Troponin I 39.100 H* (0.000-0.034) ng/mL Triglycerides (<150) mg/dL HDL Cholesterol (40-60) mg/dL 10/25/16 10/25/16 10/25/16 Range/Units 17:55 20:26 23:47 RBC (4.30-5.90) m/uL Hgb (13.0-17.5) gm/dL Hct (39.0-53.0) % RDW (11.5-15.5) % PT (9.0-12.0) sec INR (<1.1) Sodium (137-145) mmol/L BUN (9-20) mg/dL Glucose (74-99) mg/dL POC Glucose (mg/dL) 194 H (75-99) mg/dL Hemoglobin A1c 7.1 H (4.2-6.1) % Total Creatine Kinase 2323 H (55-170) U/L CK-MB (CK-2) 81.3 H* (0.0-2.4) ng/mL Troponin I 86.000 H* (0.000-0.034) ng/mL Triglycerides (<150) mg/dL HDL Cholesterol (40-60) mg/dL 10/26/16 10/26/16 10/26/16 Range/Units 04:16 04:16 04:16 RBC 2.69 L (4.30-5.90) m/uL Hgb 8.2 L (13.0-17.5) gm/dL Hct 23.9 L (39.0-53.0) % RDW 15.8 H (11.5-15.5) % PT 54.3 H (9.0-12.0) sec INR 5.4 H* (<1.1) Sodium 135 L (137-145) mmol/L BUN 39 H (9-20) mg/dL Glucose 137 H (74-99) mg/dL POC Glucose (mg/dL) (75-99) mg/dL Hemoglobin A1c (4.2-6.1) % Total Creatine Kinase (55-170) U/L CK-MB (CK-2) (0.0-2.4) ng/mL Troponin I (0.000-0.034) ng/mL Triglycerides 227 H (<150) mg/dL HDL Cholesterol 21 L (40-60) mg/dL 10/26/16 10/26/16 10/26/16 Range/Units 04:16 07:50 12:10 RBC (4.30-5.90) m/uL Hgb (13.0-17.5) gm/dL Hct (39.0-53.0) % RDW (11.5-15.5) % PT (9.0-12.0) sec INR (<1.1) Sodium (137-145) mmol/L BUN (9-20) mg/dL Glucose (74-99) mg/dL POC Glucose (mg/dL) 190 H 222 H (75-99) mg/dL Hemoglobin A1c (4.2-6.1) % Total Creatine Kinase (55-170) U/L CK-MB (CK-2) 58.3 H* (0.0-2.4) ng/mL Troponin I 62.000 H* (0.000-0.034) ng/mL Triglycerides (<150) mg/dL HDL Cholesterol (40-60) mg/dL Assessment and Plan Plan: Impression: 1 acute GI bleeding most likely upper GI in nature secondary to Coumadin coagulopathy and elevated pro time and INR. 2 history of ischemic cardiomyopathy and severe systolic dysfunction. 3 history of chronic atrial fibrillation 4 history of JOIE directed cardioversion 5 history of coronary artery disease and previous CABG in 2005 at [facility] 6 history of type 2 diabetes 7 history of hyperlipidemia 8 history of hypertension. 9 possible acute non-ST elevation myocardial infarction Recommendation: Agree with the present treatment plan, hold any anticoagulation therapy for now. Address the coagulopathy with fresh frozen plasma and vitamin K, address the anemia with blood transfusion keeping a close watch for potential congestive heart failure since the patient has history of severe ischemic cardiomyopathy and LV dysfunction. Serial CBCs will be done. And we' ll address that accordingly. GI consultation and cardiac consultations were nPatient will be closely monitored in the intensive care unit. Discussed his condition with him and his at bedside. Prognosis is definitely guarded. And will continue to follow closely. Addressed his treatment with the nurses at bedside. Continue to monitor in the ICU. Time with Patient: Less than 30
[2016-10-26 15:54] LABS: Glucose,Whole Blood 175 mg/dL (75-99)
[2016-10-26 15:59] LABS: INR 2.7 (<1.1); Prothrombin Time 25.9 sec (9.0-12.0)
[2016-10-26 16:07] LABS: Anisocytosis Slight; CH 30.7; CHCM 33.9; HCT 22.2 % (39.0-53.0); HDW 3.26; HGB 7.5 gm/dL (13.0-17.5); MCH 30.7 pg (25.0-35.0); MCHC 33.7 g/dL (31.0-37.0); MCV 91.1 fL (80.0-100.0); Mean Platelet Volume 6.7; RBC 2.44 m/uL (4.30-5.90); WBC 8.7 k/uL (3.8-10.6)
[2016-10-26 17:45] LABS: Glucose,Whole Blood 135 mg/dL (75-99)
[2016-10-26 21:40] LABS: Glucose,Whole Blood 186 mg/dL (75-99)
[2016-10-26 23:09] LABS: Anisocytosis Slight; Basophils % (A) 0 %; CH 30.8; Eosinophils # (A) 0.1 k/uL (0-0.7); Eosinophils % (A) 1 %; HDW 3.23; Luc # (Auto) 0.18; Luc % (Auto) 2; Lymphocytes # (A) 2.1 k/uL (1.0-4.8); Lymphocytes % (A) 26 %; MCH 30.8 pg (25.0-35.0); MCHC 33.7 g/dL (31.0-37.0); MCV 91.4 fL (80.0-100.0); Monocytes # (A) 0.5 k/uL (0-1.0); Monocytes % (A) 7 %; Neutrophils # (A) 5.2 k/uL (1.3-7.7); Neutrophils % (A) 64 %; RBC 2.13 m/uL (4.30-5.90); RDW 16.4 % (11.5-15.5); WBC 8.1 k/uL (3.8-10.6); WBC (Perox) 8.92
[2016-10-26 23:13] LABS: HCT 19.5 % (39.0-53.0); HGB 6.6 gm/dL (13.0-17.5)
[2016-10-27] MEDS: SODIUM CHLORIDE 0.9% 1,000 ML IV SCH (05:07)
[2016-10-27 06:24] LABS: Glucose,Whole Blood 173 mg/dL (75-99)
[2016-10-27] MEDS: INSULIN LISPRO (humaLOG) 300 UNIT/3 ML VIAL SQ SCH ×4 (06:46→21:55)
[2016-10-27] MEDS: NITROGLYCERIN OINT 1 INCH/GM PACKET TOPICAL SCH ×3 (08:32→21:56)
[2016-10-27] MEDS: PANTOPRAZOLE 40 MG/10 ML VIAL IVP SCH ×2 (08:34→21:56)
[2016-10-27] MEDS ORDERED: SPIRONOLACTONE 25 MG TAB PO SCH (09:00)
[2016-10-27 09:36] LABS: INR 1.3 (<1.1); Prothrombin Time 13.2 sec (9.0-12.0)
[2016-10-27 09:38] LABS: Anisocytosis Slight; Basophils % (A) 0 %; CH 29.9; CHCM 33.9; Eosinophils # (A) 0.1 k/uL (0-0.7); Eosinophils % (A) 2 %; HCT 25.8 % (39.0-53.0); HDW 3.15; Luc # (Auto) 0.18; Luc % (Auto) 2; Lymphocytes # (A) 1.5 k/uL (1.0-4.8); Lymphocytes % (A) 18 %; MCH 30.2 pg (25.0-35.0); MCV 88.8 fL (80.0-100.0); Mean Platelet Volume 7.4; Monocytes # (A) 0.4 k/uL (0-1.0); Monocytes % (A) 5 %; Neutrophils # (A) 5.9 k/uL (1.3-7.7); Neutrophils % (A) 73 %; RBC 2.91 m/uL (4.30-5.90); RDW 17.1 % (11.5-15.5); WBC 8.1 k/uL (3.8-10.6); WBC (Perox) 8.24
[2016-10-27 09:39] LABS: Anion Gap 8 mmol/L; Blood Urea Nitrogen 34 mg/dL (9-20); Calcium 8.8 mg/dL (8.4-10.2); Carbon Dioxide 26 mmol/L (22-30); Chloride 102 mmol/L (98-107); Glucose 147 mg/dL (74-99); Magnesium 1.7 mg/dL (1.6-2.3); Non-African American GFR(MDRD) 56 (>60 ml/min/1.73 sqM); Phosphorous 3.3 mg/dL (2.5-4.5); Potassium 5.3 mmol/L (3.5-5.1); Sodium 136 mmol/L (137-145)
[2016-10-27 09:42] LABS: HGB 8.8 gm/dL (13.0-17.5)
[2016-10-27 12:14] LABS: Glucose,Whole Blood 153 mg/dL (75-99)
[2016-10-27] MEDS ORDERED: SODIUM POLYSTYRENE SULFONATE 15 GM/60 ML BOTTLE PO STA (12:22)
--- NOTE | 2016-10-27 12:27 | P.PN ---
Subjective Principal diagnosis: Acute GI bleeding and acute non-ST elevation myocardial infarction. History of present illness: This is a 66-year-old white male with history of coronary artery disease and previous CABG. History of severe systolic dysfunction, EF is between 10-15%, history of chronic atrial fibrillation this was recently diagnosed back on 06/06. Since the diagnosis of his atrial fibrillation, patient was started on Coumadin. Patient is also on multiple medications for his cardiac disease. And he usually follows up with Dr. wilcox. Since last Monday which is 4 days ago, patient has been noticing black stools. No abdominal pain, no bright red blood per rectum, no nausea no vomiting and no hematemesis. Today while he was taking a shower this morning, patient felt very weak and lightheaded. I also had some dyspnea and left shoulder pain. noted him to be very pale. Hence the patient was brought into the ER. Workup in the ER showed that the patient had a hemoglobin of 7.5. His baseline hemoglobin on 09/22/2016 was 10.5. Patient was also noted to have elevated INR of more than 10. And PTT > 130. Electrolytes were noted to be normal. However his BUN was 42 and creatinine 1.28. Troponin was also noted to be elevated at 7.020, and the patient was found to have positive stool occult blood. Hence the patient was admitted, so far he received 1 unit of packed RBCs, I plan to give him 2 units of fresh frozen plasma. Patient received 1 dose of vitamin K 5 mg orally. All along the patient was hemodynamically stable. Patient was admitted to the ICU, and I was asked to see him on consultation. At the time of my evaluation, patient denied any headache no blurred vision no dizziness. No nausea no vomiting no abdominal pain no hematemesis. Denied any chest pain. Denied any shortness of breath. Patient was reevaluated today on 10/26/2016, seems to be doing quite well. So far the patient received 2 units of packed RBCs. No fresh frozen plasma was given. He only had vitamin K, INR is down to 5.4. Patient does not have any active bleeding at this point, and hemoglobin is 8.2 today. His CPK and troponins skyrocketed, and that being addressed by cardiology on the case. Clearly the patient cannot be on anticoagulation therapy at this point. He was also seen by gastroenterology, no immediate plans to perform EGD or colonoscopy. In the meantime I the Protonix was advised to continue and shoot for a target range of INR of 1.5. Patient was reevaluated today on 10/27/2016, he is doing quite well from the pulmonary perspective no cough no wheezing no shortness of breath, patient is hemodynamically stable, has been out of the ICU for the last 24 hours. He is supposedly scheduled to have EGD today, and based on the findings further recommendations will follow by gastroenterology. Patient is also being followed by cardiology for his acute presentation of NE, and decisions regarding treatment will be addressed by the tobacco curer. Considering the patient is followed by cardiology and gastroenterology, will go ahead and sign off, and the patient has no active pulmonary symptoms. Hemoglobin was noted to be stable at 8.8. His INR is down to 1.3. And the rest of the labs were reviewed relatively unremarkable. Objective - Vital Signs Vital signs: Vital Signs Temp 97.1 F L 10/27/16 08:00 Pulse 76 10/27/16 08:00 Resp 20 10/27/16 08:00 BP 125/58 10/27/16 08:00 Pulse Ox 98 10/27/16 08:00 Intake & Output 10/26/16 10/27/16 10/27/16 18:59 06:59 18:59 Intake Total 250 1480 0 Output Total 700 1800 Balance -450 -320 0 Weight 109.3 kg Intake: IV 250 530 Sodium Chloride 0.9% 1, 250 530 000 ml @ 50 mls/hr IV . Q20H [facility] Rx#:[id number] Blood Product 930 0 Rc As-1 Unit 310 [id number] Rc As-1 Unit 0 0 [id number] Other 20 Rc As-1 Unit 20 [id number] Output: Urine 700 1800 Other: Voiding Method Urinal Toilet # Voids 1 1 # Bowel Movements 1 - Exam Physical Exam: Revealed a 66-year-old white male in no distress HEENT:[Neck is supple.] [No neck masses.] [No thyromegaly.] [No JVD.] Chest: [Clear throughout, no crackles, no rhonchi, no wheezes.] Cardiac Exam: [Normal S1 and S2, no S3 gallop, 2/6 systolic murmur throughout the precordium.] Abdomen: [Soft, nontender, no megaly, no rebound, no guarding, normal bowel sounds.] Extremities: [No clubbing, no edema, no cyanosis.] Neurological Exam: [No focal neurologic deficit.] - Labs CBC & Chem 7: 10/27/16 09:16 10/27/16 09:16 Labs: Abnormal Lab Results - Last 24 Hours (Table) 10/26/16 10/26/16 10/26/16 Range/Units 15:37 15:37 15:52 RBC 2.44 L (4.30-5.90) m/uL Hgb 7.5 L (13.0-17.5) gm/dL Hct 22.2 L (39.0-53.0) % RDW 16.0 H (11.5-15.5) % PT 25.9 H (9.0-12.0) sec Sodium (137-145) mmol/L Potassium (3.5-5.1) mmol/L BUN (9-20) mg/dL Creatinine (0.66-1.25) mg/dL Glucose (74-99) mg/dL POC Glucose (mg/dL) 175 H (75-99) mg/dL 10/26/16 10/26/16 10/26/16 Range/Units 17:43 21:38 22:30 RBC 2.13 L (4.30-5.90) m/uL Hgb 6.6 L* (13.0-17.5) gm/dL Hct 19.5 L* (39.0-53.0) % RDW 16.4 H (11.5-15.5) % PT (9.0-12.0) sec Sodium (137-145) mmol/L Potassium (3.5-5.1) mmol/L BUN (9-20) mg/dL Creatinine (0.66-1.25) mg/dL Glucose (74-99) mg/dL POC Glucose (mg/dL) 135 H 186 H (75-99) mg/dL 10/27/16 10/27/16 10/27/16 Range/Units 06:22 09:16 09:16 RBC 2.91 L (4.30-5.90) m/uL Hgb 8.8 L D (13.0-17.5) gm/dL Hct 25.8 L (39.0-53.0) % RDW 17.1 H (11.5-15.5) % PT (9.0-12.0) sec Sodium 136 L (137-145) mmol/L Potassium 5.3 H (3.5-5.1) mmol/L BUN 34 H (9-20) mg/dL Creatinine 1.28 H (0.66-1.25) mg/dL Glucose 147 H (74-99) mg/dL POC Glucose (mg/dL) 173 H (75-99) mg/dL 10/27/16 10/27/16 Range/Units 09:16 12:04 RBC (4.30-5.90) m/uL Hgb (13.0-17.5) gm/dL Hct (39.0-53.0) % RDW (11.5-15.5) % PT 13.2 H (9.0-12.0) sec Sodium (137-145) mmol/L Potassium (3.5-5.1) mmol/L BUN (9-20) mg/dL Creatinine (0.66-1.25) mg/dL Glucose (74-99) mg/dL POC Glucose (mg/dL) 153 H (75-99) mg/dL Assessment and Plan Plan: Impression: 1 acute GI bleeding most likely upper GI in nature secondary to Coumadin coagulopathy and elevated pro time and INR. 2 history of ischemic cardiomyopathy and severe systolic dysfunction. 3 history of chronic atrial fibrillation 4 history of JOIE directed cardioversion 5 history of coronary artery disease and previous CABG in 2005 at [facility] 6 history of type 2 diabetes 7 history of hyperlipidemia 8 history of hypertension. 9 possible acute non-ST elevation myocardial infarction Recommendation: Continue present treatment plan as per cardiology and gastroenterology, we'll sign off and see the patient on when necessary basis. Time with Patient: Less than 30
[2016-10-27] MEDS ORDERED: IV FLUID CONTINUATION 1,000 ML IV ONE (13:20)
[2016-10-27] MEDS ORDERED: PROPOFOL 10 MG/ML 20 ML VIAL IV ONE (13:22)
--- NOTE | 2016-10-27 13:31 | P.PCN ---
Date of Procedure: 10/27/16 Procedure(s) Performed: BRIEF HISTORY: Patient is a 66-year-old, pleasant, white male, scheduled for an upper endoscopy as part of evaluation of severe symptomatic anemia and black tarry stools for the last 3 days' duration. He came in with a hemoglobin of 6.2 units of PRBC transfusion and last was 6.9 and received 2 more units of blood transfusion. He was noted to have mild elevation of troponin level suggestive of non-ST elevation PR and cardiology point the patient closely. Because of the severe symptomatic anemia and black tarry stools is scheduled for an upper endoscopy today.. PROCEDURE PERFORMED: Esophagogastroduodenoscopy. PREOPERATIVE DIAGNOSIS: Severe symptomatic anemia and black tarry stools. IV sedation per anesthesia. PROCEDURE: After informed consent was obtained, the patient was brought into the endoscopy unit. IV conscious sedation was administered by Anesthesia under continuous monitoring. Initially the Olympus GIF-140 video endoscope was inserted into the mouth. Esophagus intubated without any difficulty. It was gradually advanced into the stomach and duodenum and carefully examined. The bulb and the second part of the duodenum appeared normal. The scope at this time was withdrawn to the stomach, adequately insufflated with air, and upon careful examination, mucosa of the antrum, body, cardia and the fundus appeared normal. The scope was then withdrawn into the esophagus. The GE junction was located at 39 cm from the incisors. The esophagus appeared normal. There were no erosions or ulcerations seen and the patient tolerated the procedure well. IMPRESSION: 1. 2 superficial scattered erosions in the antrum with no active bleeding. 2. No evidence of esophagitis or peptic ulcer disease. RECOMMENDATIONS: The findings of this examination were discussed with the patient as well as his family.. He'll be started on clear liquid diet and will plan on proceeding with a colonoscopy either tomorrow or outpatient basis based on recommendations by cardiology.
[2016-10-27] MEDS: LISINOPRIL 5 MG TAB PO SCH (13:56)
[2016-10-27] MEDS: METOPROLOL SUCCINATE (ER) 50 MG TAB.ER.24H PO SCH ×2 (13:56→21:55)
[2016-10-27] MEDS: ALLOPURINOL 100 MG TAB PO SCH (13:56)
[2016-10-27] MEDS: ATORVASTATIN 80 MG TAB PO SCH (13:56)
[2016-10-27] MEDS: MAGNESIUM OXIDE 400 MG TAB PO SCH (13:56)
--- NOTE | 2016-10-27 14:00 | P.PN ---
Subjective Principal diagnosis: Acute upper GI bleed Patient is doing fairly well today. He required 2 more units of blood for hemoglobin of 6.6 this morning. He is scheduled for an EGD this afternoon. Objective - Vital Signs Vital signs: Vital Signs Temp 97.6 F 10/27/16 12:57 Pulse 80 10/27/16 12:57 Resp 20 10/27/16 12:57 BP 117/54 10/27/16 12:57 Pulse Ox 97 10/27/16 12:57 Intake & Output 10/26/16 10/27/16 10/27/16 18:59 06:59 18:59 Intake Total 250 1480 200 Output Total 700 1800 Balance -450 -320 200 Weight 109.3 kg Intake: IV 250 530 200 Sodium Chloride 0.9% 1, 250 530 000 ml @ 50 mls/hr IV . Q20H [facility] Rx#:[id number] Blood Product 930 0 Rc As-1 Unit 310 [id number] Rc As-1 Unit 0 0 [id number] Other 20 Rc As-1 Unit 20 [id number] Output: Urine 700 1800 Other: Voiding Method Urinal Toilet # Voids 1 1 # Bowel Movements 1 - Exam General: The patient is awake and alert, in no distress Eye: there is normal conjunctiva bilaterally. Neck: The neck is supple, there is no JVD. Cardiovascular: Normal S1-S2, no S3-S4, no murmurs. Respiratory: Lungs clear to auscultation bilaterally Gastrointestinal: Abdomen is soft, nontender Musculoskeletal: There is no pedal edema. Neurological:. Speech is normal. Skin: Skin is warm and dry - Labs CBC & Chem 7: 10/27/16 09:16 10/27/16 09:16 Labs: Abnormal Lab Results - Last 24 Hours (Table) 10/26/16 10/26/16 10/26/16 Range/Units 15:37 15:37 15:52 RBC 2.44 L (4.30-5.90) m/uL Hgb 7.5 L (13.0-17.5) gm/dL Hct 22.2 L (39.0-53.0) % RDW 16.0 H (11.5-15.5) % PT 25.9 H (9.0-12.0) sec Sodium (137-145) mmol/L Potassium (3.5-5.1) mmol/L BUN (9-20) mg/dL Creatinine (0.66-1.25) mg/dL Glucose (74-99) mg/dL POC Glucose (mg/dL) 175 H (75-99) mg/dL 10/26/16 10/26/16 10/26/16 Range/Units 17:43 21:38 22:30 RBC 2.13 L (4.30-5.90) m/uL Hgb 6.6 L* (13.0-17.5) gm/dL Hct 19.5 L* (39.0-53.0) % RDW 16.4 H (11.5-15.5) % PT (9.0-12.0) sec Sodium (137-145) mmol/L Potassium (3.5-5.1) mmol/L BUN (9-20) mg/dL Creatinine (0.66-1.25) mg/dL Glucose (74-99) mg/dL POC Glucose (mg/dL) 135 H 186 H (75-99) mg/dL 10/27/16 10/27/16 10/27/16 Range/Units 06:22 09:16 09:16 RBC 2.91 L (4.30-5.90) m/uL Hgb 8.8 L D (13.0-17.5) gm/dL Hct 25.8 L (39.0-53.0) % RDW 17.1 H (11.5-15.5) % PT (9.0-12.0) sec Sodium 136 L (137-145) mmol/L Potassium 5.3 H (3.5-5.1) mmol/L BUN 34 H (9-20) mg/dL Creatinine 1.28 H (0.66-1.25) mg/dL Glucose 147 H (74-99) mg/dL POC Glucose (mg/dL) 173 H (75-99) mg/dL 10/27/16 10/27/16 Range/Units 09:16 12:04 RBC (4.30-5.90) m/uL Hgb (13.0-17.5) gm/dL Hct (39.0-53.0) % RDW (11.5-15.5) % PT 13.2 H (9.0-12.0) sec Sodium (137-145) mmol/L Potassium (3.5-5.1) mmol/L BUN (9-20) mg/dL Creatinine (0.66-1.25) mg/dL Glucose (74-99) mg/dL POC Glucose (mg/dL) 153 H (75-99) mg/dL Assessment and Plan Plan: 1. Upper GI bleed: Currently on IV Protonix. Seen and evaluated by GI. Plan for EGD today 2. Acute blood loss anemia: Status post 4 units PRBC transfusion. We will continue to monitor CBC daily. 3. Chronic atrial fibrillation: Heart rate well controlled. On anticoagulation with Coumadin currently on hold 4. Coagulopathy with INR above 10 on presentation now trending down status post 10 mg of vitamin K since admission 5. Type II non-ST elevation [place]: Most likely secondary to supply/demand mismatch. Seen and evaluated by cardiology. Continue optimize medical management. Echocardiogram ordered. 6. Coronary artery disease status post bypass surgery in 2005 with left heart catheterization and stenting in 2014 7. Underlying ischemic cardiomyopathy now compensated with no evidence of exacerbation 8. Essential hypertension: Blood pressure well-controlled Status post percutaneous revascularization 9. DVT prophylaxis with SCDs Continue IV Protonix. Monitor for evidence of bleeding. Transfuse as needed for hemoglobin below 7 if no signs of ongoing bleed. Repeat lab work in the morning. Appreciate leadership development consultant's recommendations.
--- NOTE | 2016-10-27 14:33 | P.PN ---
Subjective Principal diagnosis: Non-STEMI This is a pleasant 66-year-old male presented to the hospital with acute GI bleeding, anemia, dizziness and chest pain. He had evidence of a non-Q-wave myocardial infarction with noted ST depression in the lateral leads. Patient did receive a blood transfusion, hemoglobin today is 8.8. He was seen and examined on the telemetry unit today, denies any chest pain, breathing has been stable. Denies any dizziness. Hemodynamically stable. Scheduled today to undergo an EGD by Dr. Bell. Objective - Vital Signs Vital signs: Vital Signs Temp 97.6 F 10/27/16 12:57 Pulse 98 10/27/16 13:45 Resp 20 10/27/16 13:45 BP 117/56 10/27/16 13:45 Pulse Ox 96 10/27/16 13:45 Intake & Output 10/26/16 10/27/16 10/27/16 18:59 06:59 18:59 Intake Total 250 1480 680 Output Total 700 1800 Balance -450 -320 680 Weight 109.3 kg Intake: IV 250 530 680 Sodium Chloride 0.9% 1, 250 530 480 000 ml @ 50 mls/hr IV . Q20H [facility] Rx#:[id number] Blood Product 930 0 Rc As-1 Unit 310 [id number] Rc As-1 Unit 0 0 [id number] Other 20 Rc As-1 Unit 20 [id number] Output: Urine 700 1800 Other: Voiding Method Urinal Toilet # Voids 1 1 # Bowel Movements 1 - Exam PHYSICAL EXAMINATION: HEENT: Head is atraumatic, normocephalic. Pupils equal, round. Neck is supple. There is no elevated jugular venous pressure. HEART EXAMINATION: Heart S1, S2 normal. No murmur or gallop heard. CHEST EXAMINATION: Lungs are clear to auscultation and precussion. No chest wall tenderness is noted on palpation or with deep breathing. ABDOMEN: Soft, nontender. Bowel sounds are heard. No organomegaly noted. EXTREMITIES: 2+ peripheral pulses with no evidence of peripheral edema and no calf tenderness noted. NEUROLOGIC patient is awake, alert and oriented -3. . - Labs CBC & Chem 7: 10/27/16 09:16 10/27/16 09:16 Labs: Abnormal Lab Results - Last 24 Hours (Table) 0310/26/16 10/26/16 Range/Units 15:37 15:37 15:52 RBC 2.44 L (4.30-5.90) m/uL Hgb 7.5 L (13.0-17.5) gm/dL Hct 22.2 L (39.0-53.0) % RDW 16.0 H (11.5-15.5) % PT 25.9 H (9.0-12.0) sec Sodium (137-145) mmol/L Potassium (3.5-5.1) mmol/L BUN (9-20) mg/dL Creatinine (0.66-1.25) mg/dL Glucose (74-99) mg/dL POC Glucose (mg/dL) 175 H (75-99) mg/dL 10/26/16 10/26/16 10/26/16 Range/Units 17:43 21:38 22:30 RBC 2.13 L (4.30-5.90) m/uL Hgb 6.6 L* (13.0-17.5) gm/dL Hct 19.5 L* (39.0-53.0) % RDW 16.4 H (11.5-15.5) % PT (9.0-12.0) sec Sodium (137-145) mmol/L Potassium (3.5-5.1) mmol/L BUN (9-20) mg/dL Creatinine (0.66-1.25) mg/dL Glucose (74-99) mg/dL POC Glucose (mg/dL) 135 H 186 H (75-99) mg/dL 10/27/16 10/27/16 10/27/16 Range/Units 06:22 09:16 09:16 RBC 2.91 L (4.30-5.90) m/uL Hgb 8.8 L D (13.0-17.5) gm/dL Hct 25.8 L (39.0-53.0) % RDW 17.1 H (11.5-15.5) % PT (9.0-12.0) sec Sodium 136 L (137-145) mmol/L Potassium 5.3 H (3.5-5.1) mmol/L BUN 34 H (9-20) mg/dL Creatinine 1.28 H (0.66-1.25) mg/dL Glucose 147 H (74-99) mg/dL POC Glucose (mg/dL) 173 H (75-99) mg/dL 10/27/16 10/27/16 Range/Units 09:16 12:04 RBC (4.30-5.90) m/uL Hgb (13.0-17.5) gm/dL Hct (39.0-53.0) % RDW (11.5-15.5) % PT 13.2 H (9.0-12.0) sec Sodium (137-145) mmol/L Potassium (3.5-5.1) mmol/L BUN (9-20) mg/dL Creatinine (0.66-1.25) mg/dL Glucose (74-99) mg/dL POC Glucose (mg/dL) 153 H (75-99) mg/dL Assessment and Plan (1) GI bleed Status: Acute (2) Acute blood loss anemia Status: Acute (3) Coumadin toxicity Status: Acute (4) History of coronary artery disease Status: Acute (5) History of peripheral vascular disease Status: Acute (6) Non-ST elevation myocardial infarction (NSTEMI) Status: Acute (7) Diabetes Status: Acute (8) HTN (hypertension) Status: Acute (9) Hx of CABG Status: Acute (10) PAD (peripheral artery disease) Status: Acute (11) Paroxysmal a-fib Status: Acute Plan: From cardiology's perspective, we will recommend to continue the patient on his current medications. We will continue to follow. DNP note has been reviewed, I agree with a documented findings and plan of care. Patient was seen and examined.
[2016-10-27 17:20] LABS: Glucose,Whole Blood 143 mg/dL (75-99)
[2016-10-27 20:53] LABS: Glucose,Whole Blood 146 mg/dL (75-99)
[2016-10-28 05:44] LABS: Glucose,Whole Blood 151 mg/dL (75-99)
[2016-10-28 06:18] LABS: Anisocytosis Slight; Basophils % (A) 0 %; CHCM 33.6; Eosinophils # (A) 0.1 k/uL (0-0.7); Eosinophils % (A) 2 %; HCT 25.4 % (39.0-53.0); HDW 3.24; HGB 8.4 gm/dL (13.0-17.5); Luc # (Auto) 0.18; Luc % (Auto) 2; Lymphocytes # (A) 1.1 k/uL (1.0-4.8); Lymphocytes % (A) 15 %; MCH 29.8 pg (25.0-35.0); MCHC 33.1 g/dL (31.0-37.0); Mean Platelet Volume 6.7; Monocytes # (A) 0.4 k/uL (0-1.0); Monocytes % (A) 6 %; Neutrophils # (A) 5.6 k/uL (1.3-7.7); Neutrophils % (A) 75 %; RBC 2.82 m/uL (4.30-5.90); RDW 17.7 % (11.5-15.5); WBC 7.5 k/uL (3.8-10.6); WBC (Perox) 7.79
[2016-10-28 06:29] LABS: Anion Gap 8 mmol/L; Blood Urea Nitrogen 21 mg/dL (9-20); Calcium 8.5 mg/dL (8.4-10.2); Carbon Dioxide 27 mmol/L (22-30); Chloride 102 mmol/L (98-107); Glucose 142 mg/dL (74-99); Magnesium 1.6 mg/dL (1.6-2.3); Non-African American GFR(MDRD) >60 (>60 ml/min/1.73 sqM); Phosphorous 4.1 mg/dL (2.5-4.5); Potassium 4.5 mmol/L (3.5-5.1); Sodium 137 mmol/L (137-145)
[2016-10-28] MEDS: SODIUM CHLORIDE 0.9% 1,000 ML IV SCH (06:48)
[2016-10-28] MEDS: INSULIN LISPRO (humaLOG) 300 UNIT/3 ML VIAL SQ SCH ×4 (06:49→23:35)
[2016-10-28] MEDS: ATORVASTATIN 80 MG TAB PO SCH (08:07)
[2016-10-28] MEDS: ALLOPURINOL 100 MG TAB PO SCH (08:07)
[2016-10-28] MEDS: METOPROLOL SUCCINATE (ER) 50 MG TAB.ER.24H PO SCH ×2 (08:07→23:35)
[2016-10-28] MEDS: NITROGLYCERIN OINT 1 INCH/GM PACKET TOPICAL SCH ×3 (08:07→23:36)
[2016-10-28] MEDS: PANTOPRAZOLE 40 MG/10 ML VIAL IVP SCH ×2 (08:08→23:34)
--- NOTE | 2016-10-28 10:24 | P.PN ---
Subjective Principal diagnosis: Non-STEMI This is a pleasant 66-year-old male presented to the hospital with acute GI bleeding, anemia, dizziness and chest pain. He had evidence of a non-Q-wave myocardial infarction with noted ST depression in the lateral leads. Patient did receive a blood transfusion, hemoglobin today is 8.4. He was seen and examined on the telemetry unit today, denies any chest pain, breathing has been stable. Denies any dizziness. He has not yet been out of bed. Hemodynamically stable. Underwent an EGD yesterday which revealed 2 superficial scattered erosions in the antrum with no active bleeding. No evidence of esophagitis or peptic ulcer disease. He has been encouraged today to be up in the chair, we will continue to monitor daily hemoglobin, continue current therapy. If patient remains stable, possible colonoscopy early next week, understanding the increased risk. Objective - Vital Signs Vital signs: Vital Signs Temp 97.6 F 10/28/16 08:00 Pulse 74 10/28/16 08:00 Resp 16 10/28/16 08:00 BP 137/61 10/28/16 08:00 Pulse Ox 96 10/28/16 04:00 Intake & Output 10/27/16 10/28/16 10/28/16 18:59 06:59 18:59 Intake Total 1290 850 Balance 1290 850 Weight 108.1 kg Intake: IV 680 450 Sodium Chloride 0.9% 1, 480 450 000 ml @ 50 mls/hr IV . Q20H [facility] Rx#:[id number] Oral 300 400 Blood Product 310 Rc As-1 Unit 310 [id number] Other: # Voids 1 - Exam PHYSICAL EXAMINATION: HEENT: Head is atraumatic, normocephalic. Pupils equal, round. Neck is supple. There is no elevated jugular venous pressure. HEART EXAMINATION: Heart S1, S2 normal. No murmur or gallop heard. CHEST EXAMINATION: Lungs are clear to auscultation and precussion. No chest wall tenderness is noted on palpation or with deep breathing. ABDOMEN: Soft, nontender. Bowel sounds are heard. No organomegaly noted. EXTREMITIES: 2+ peripheral pulses with no evidence of peripheral edema and no calf tenderness noted. NEUROLOGIC patient is awake, alert and oriented -3. . - Labs CBC & Chem 7: 10/28/16 05:26 03/03/17 05:26 Labs: Abnormal Lab Results - Last 24 Hours (Table) 10/27/16 10/27/16 10/27/16 Range/Units 12:04 17:17 20:52 RBC (4.30-5.90) m/uL Hgb (13.0-17.5) gm/dL Hct (39.0-53.0) % RDW (11.5-15.5) % BUN (9-20) mg/dL Glucose (74-99) mg/dL POC Glucose (mg/dL) 153 H 143 H 146 H (75-99) mg/dL 10/28/16 10/28/16 10/28/16 Range/Units 05:26 05:26 05:43 RBC 2.82 L (4.30-5.90) m/uL Hgb 8.4 L (13.0-17.5) gm/dL Hct 25.4 L (39.0-53.0) % RDW 17.7 H (11.5-15.5) % BUN 21 H (9-20) mg/dL Glucose 142 H (74-99) mg/dL POC Glucose (mg/dL) 151 H (75-99) mg/dL Assessment and Plan (1) GI bleed Status: Acute (2) Acute blood loss anemia Status: Acute (3) Coumadin toxicity Status: Acute (4) History of coronary artery disease Status: Acute (5) History of peripheral vascular disease Status: Acute (6) Non-ST elevation myocardial infarction (NSTEMI) Status: Acute (7) Diabetes Status: Acute (8) HTN (hypertension) Status: Acute (9) Hx of CABG Status: Acute (10) PAD (peripheral artery disease) Status: Acute (11) Paroxysmal a-fib Status: Acute Plan: From cardiology's perspective, we will recommend to continue the patient on his current medications. Up in the chair today as tolerated. Consult physical therapy. Possible colonoscopy early next week, understanding the increased risk. When the patient is stable from a GI perspective and it is cleared by GI service, we would like to put the patient on a baby aspirin daily. DNP note has been reviewed, I agree with a documented findings and plan of care. Patient was seen and examined.
--- NOTE | 2016-10-28 11:23 | P.PN ---
Subjective Principal diagnosis: GI bleed acute VA 66-year-old gentleman admitted with acute VA and GI bleed. Status post EGD yesterday with findings of 2 superficial scattered erosions in the antrum with no active bleeding. No evidence of esophagitis or peptic ulcer disease. 3 black colored stools yesterday after EGD evaluation. Denies abdominal pain. Hemoglobin 8.4. Objective - Vital Signs Vital signs: Vital Signs Temp 97.6 F 10/28/16 08:00 Pulse 74 10/28/16 08:00 Resp 16 10/28/16 08:00 BP 137/61 10/28/16 08:00 Pulse Ox 96 10/28/16 04:00 Intake & Output 10/27/16 10/28/16 10/28/16 18:59 06:59 18:59 Intake Total 1290 850 Balance 1290 850 Weight 108.1 kg 108.1 kg Intake: IV 680 450 Sodium Chloride 0.9% 1, 480 450 000 ml @ 50 mls/hr IV . Q20H [facility] Rx#:[id number] Oral 300 400 Blood Product 310 Rc As-1 Unit 310 [id number] Other: Voiding Method Toilet # Voids 1 1 # Bowel Movements 0 - Exam General appearance: The patient is alert, oriented, in no acute distress. HET: Head is normocephalic and atraumatic. Pupils are equal and reactive. Oropharynx is clear without lesions. Neck: Supple without lymphadenopathy. Trachea midline. Heart: S1 S2. Regular rate and rhythm. Lungs: No crackles or wheezes are heard. Abdomen: Soft, nontender, nondistended with bowel sounds. No peritoneal signs. No palpable organomegaly or masses. Extremities: Normal skin color and turgor. No cyanosis, rash, ulceration, clubbing, or edema. Radial and pedal pulses are 2/4 bilaterally. Neurological: No focal deficits. Strength and sensation are grossly intact. - Labs CBC & Chem 7: 10/28/16 05:26 10/28/16 05:26 Labs: Abnormal Lab Results - Last 24 Hours (Table) 10/27/16 10/27/16 10/27/16 Range/Units 12:04 17:17 20:52 RBC (4.30-5.90) m/uL Hgb (13.0-17.5) gm/dL Hct (39.0-53.0) % RDW (11.5-15.5) % BUN (9-20) mg/dL Glucose (74-99) mg/dL POC Glucose (mg/dL) 153 H 143 H 146 H (75-99) mg/dL 10/28/16 10/28/16 10/28/16 Range/Units 05:26 05:26 05:43 RBC 2.82 L (4.30-5.90) m/uL Hgb 8.4 L (13.0-17.5) gm/dL Hct 25.4 L (39.0-53.0) % RDW 17.7 H (11.5-15.5) % BUN 21 H (9-20) mg/dL Glucose 142 H (74-99) mg/dL POC Glucose (mg/dL) 151 H (75-99) mg/dL Assessment and Plan (1) Acute upper GI bleed Narrative/Plan: Melena status post EGD with findings of 2 superficial scattered erosions in the antrum with no active bleeding. No evidence of esophagitis or peptic ulcer disease. Status: Acute (2) Coumadin toxicity Status: Acute (3) Non-ST elevation myocardial infarction (NSTEMI) Status: Acute (4) H/O ETOH abuse Status: Resolved (5) Acute blood loss anemia Status: Acute (6) History of atrial fibrillation Status: Acute (7) History of coronary artery disease Status: Acute (8) History of peripheral vascular disease Status: Acute Plan: 1. Etiology of melena is unclear at this time. Case was discussed with cardiology nurse practitioner Dr. Delfina Maradiaga. Dr. Doe is requesting observation over the weekend and to hold further endoscopic workup at this time. We'll reevaluate on Monday for colonoscopy possible small bowel capsule needed if agreeable with high voltage electrician. Continue to monitor CBC closely keeping hemoglobin greater than 8. Continue GI prophylaxis. Antiplatelet medications are presently on hold. Will reevaluate. Assessment and plan a care discussed with Dr. Bell.
[2016-10-28 12:06] LABS: Glucose,Whole Blood 176 mg/dL (75-99)
[2016-10-28] MEDS: MAGNESIUM OXIDE 400 MG TAB PO SCH (12:59)
[2016-10-28] MEDS: LISINOPRIL 5 MG TAB PO SCH (12:59)
--- NOTE | 2016-10-28 14:17 | P.PN ---
Subjective Principal diagnosis: Acute upper GI bleed Patient is doing well today. No events overnight. Objective - Vital Signs Vital signs: Vital Signs Temp 97.3 F L 10/28/16 12:00 Pulse 81 10/28/16 12:00 Resp 18 10/28/16 12:00 BP 133/64 10/28/16 12:00 Pulse Ox 96 10/28/16 04:00 Intake & Output 10/27/16 10/28/16 10/28/16 18:59 06:59 18:59 Intake Total 1290 850 240 Balance 1290 850 240 Weight 108.1 kg 108.1 kg Intake: IV 680 450 Sodium Chloride 0.9% 1, 480 450 000 ml @ 50 mls/hr IV . Q20H [facility] Rx#:[id number] Oral 300 400 240 Blood Product 310 Rc As-1 Unit 310 [id number] Other: Voiding Method Toilet # Voids 1 1 # Bowel Movements 0 - Exam General: The patient is awake and alert, in no distress Eye: there is normal conjunctiva bilaterally. Neck: The neck is supple, there is no JVD. Cardiovascular: Normal S1-S2, no S3-S4, no murmurs. Respiratory: Lungs clear to auscultation bilaterally Gastrointestinal: Abdomen is soft, nontender Musculoskeletal: There is no pedal edema. Neurological:. Speech is normal. Skin: Skin is warm and dry - Labs CBC & Chem 7: 10/28/16 05:26 10/28/16 05:26 Labs: Abnormal Lab Results - Last 24 Hours (Table) 10/27/16 10/27/16 10/28/16 Range/Units 17:17 20:52 05:26 RBC 2.82 L (4.30-5.90) m/uL Hgb 8.4 L (13.0-17.5) gm/dL Hct 25.4 L (39.0-53.0) % RDW 17.7 H (11.5-15.5) % BUN (9-20) mg/dL Glucose (74-99) mg/dL POC Glucose (mg/dL) 143 H 146 H (75-99) mg/dL 10/28/16 10/28/16 10/28/16 Range/Units 05:26 05:43 12:01 RBC (4.30-5.90) m/uL Hgb (13.0-17.5) gm/dL Hct (39.0-53.0) % RDW (11.5-15.5) % BUN 21 H (9-20) mg/dL Glucose 142 H (74-99) mg/dL POC Glucose (mg/dL) 151 H 176 H (75-99) mg/dL Assessment and Plan Plan: 1. Upper GI bleed: Currently on IV Protonix. Seen and evaluated by GI. EGD showed 2 superficial erosions in the antrum with no active bleeding, otherwise unremarkable. Plan for colonoscopy on Monday. 2. Acute blood loss anemia: Status post 4 units PRBC transfusion. We will continue to monitor CBC daily. 3. Chronic atrial fibrillation: Heart rate well controlled. On anticoagulation with Coumadin currently on hold 4. Coagulopathy with INR above 10 on presentation status post 10 mg of vitamin K since admission. Now back to normal range 5. Type II non-ST elevation [place]: Most likely secondary to supply/demand mismatch. Seen and evaluated by cardiology. Continue optimize medical management. Echocardiogram ordered. 6. Coronary artery disease status post bypass surgery in 2005 with left heart catheterization and stenting in 2014 7. Underlying ischemic cardiomyopathy now compensated with no evidence of exacerbation 8. Essential hypertension: Blood pressure well-controlled Status post percutaneous revascularization 9. DVT prophylaxis with SCDs Continue IV Protonix. Monitor for evidence of bleeding. Transfuse as needed for hemoglobin below 7 if no signs of ongoing bleed. Plan for colonoscopy on Monday. Repeat lab work in the morning. Appreciate sap plant maintenance consultant's recommendations.
[2016-10-28 17:16] LABS: Glucose,Whole Blood 121 mg/dL (75-99)
[2016-10-28 20:42] LABS: Glucose,Whole Blood 170 mg/dL (75-99)
[2016-10-29 06:19] LABS: Glucose,Whole Blood 151 mg/dL (75-99)
[2016-10-29 06:26] LABS: Anisocytosis Slight; Basophils % (A) 1 %; CH 30.1; CHCM 33.3; Eosinophils # (A) 0.1 k/uL (0-0.7); Eosinophils % (A) 2 %; HCT 24.1 % (39.0-53.0); HDW 3.29; HGB 7.9 gm/dL (13.0-17.5); Luc # (Auto) 0.16; Luc % (Auto) 2; Lymphocytes # (A) 1.3 k/uL (1.0-4.8); Lymphocytes % (A) 19 %; MCHC 32.9 g/dL (31.0-37.0); Mean Platelet Volume 7.6; Monocytes # (A) 0.3 k/uL (0-1.0); Monocytes % (A) 5 %; Neutrophils # (A) 4.9 k/uL (1.3-7.7); Neutrophils % (A) 71 %; RBC 2.65 m/uL (4.30-5.90); RDW 17.7 % (11.5-15.5); WBC 6.8 k/uL (3.8-10.6); WBC (Perox) 6.58
[2016-10-29 06:42] LABS: Anion Gap 7 mmol/L; Blood Urea Nitrogen 16 mg/dL (9-20); Calcium 8.9 mg/dL (8.4-10.2); Carbon Dioxide 29 mmol/L (22-30); Chloride 101 mmol/L (98-107); Glucose 143 mg/dL (74-99); Magnesium 1.6 mg/dL (1.6-2.3); Non-African American GFR(MDRD) >60 (>60 ml/min/1.73 sqM); Potassium 4.6 mmol/L (3.5-5.1); Sodium 137 mmol/L (137-145)
[2016-10-29] MEDS: INSULIN LISPRO (humaLOG) 300 UNIT/3 ML VIAL SQ SCH ×4 (06:55→20:51)
[2016-10-29] MEDS: METOPROLOL SUCCINATE (ER) 50 MG TAB.ER.24H PO SCH ×2 (08:42→20:51)
[2016-10-29] MEDS: ALLOPURINOL 100 MG TAB PO SCH (08:42)
[2016-10-29] MEDS: ATORVASTATIN 80 MG TAB PO SCH (08:42)
[2016-10-29] MEDS: PANTOPRAZOLE 40 MG/10 ML VIAL IVP SCH (08:42)
[2016-10-29] MEDS: NITROGLYCERIN OINT 1 INCH/GM PACKET TOPICAL SCH ×3 (08:42→20:51)
[2016-10-29 11:51] LABS: Glucose,Whole Blood 159 mg/dL (75-99)
[2016-10-29] MEDS: LISINOPRIL 5 MG TAB PO SCH (12:14)
[2016-10-29] MEDS: MAGNESIUM OXIDE 400 MG TAB PO SCH (12:14)
--- NOTE | 2016-10-29 12:43 | P.PN ---
Subjective Principal diagnosis: Acute upper GI bleed Patient is doing well today. No events overnight. Objective - Vital Signs Vital signs: Vital Signs Temp 97.1 F L 10/29/16 08:00 Pulse 82 10/29/16 08:00 Resp 18 10/29/16 08:00 BP 133/61 10/29/16 08:00 Pulse Ox 96 10/29/16 08:00 Intake & Output 10/28/16 10/29/16 10/29/16 18:59 06:59 18:59 Intake Total 480 150 560 Output Total 800 Balance -320 150 560 Weight 108.1 kg 107.5 kg Intake: Oral 480 150 560 Output: Urine 800 Other: Voiding Method Toilet Toilet # Voids 1 1 # Bowel Movements 0 - Exam General: The patient is awake and alert, in no distress Eye: there is normal conjunctiva bilaterally. Neck: The neck is supple, there is no JVD. Cardiovascular: Normal S1-S2, no S3-S4, no murmurs. Respiratory: Lungs clear to auscultation bilaterally Gastrointestinal: Abdomen is soft, nontender Musculoskeletal: There is no pedal edema. Neurological:. Speech is normal. Skin: Skin is warm and dry - Labs CBC & Chem 7: 10/29/16 05:41 10/29/16 05:41 Labs: Abnormal Lab Results - Last 24 Hours (Table) 10/28/16 10/28/16 10/29/16 Range/Units 17:03 20:41 05:41 RBC 2.65 L (4.30-5.90) m/uL Hgb 7.9 L (13.0-17.5) gm/dL Hct 24.1 L (39.0-53.0) % RDW 17.7 H (11.5-15.5) % Glucose (74-99) mg/dL POC Glucose (mg/dL) 121 H 170 H (75-99) mg/dL 10/29/16 10/29/16 10/29/16 Range/Units 05:41 06:18 11:49 RBC (4.30-5.90) m/uL Hgb (13.0-17.5) gm/dL Hct (39.0-53.0) % RDW (11.5-15.5) % Glucose 143 H (74-99) mg/dL POC Glucose (mg/dL) 151 H 159 H (75-99) mg/dL Assessment and Plan Plan: 1. Upper GI bleed: Currently on IV Protonix. Seen and evaluated by GI. EGD showed 2 superficial erosions in the antrum with no active bleeding, otherwise unremarkable. Plan for colonoscopy on Monday. 2. Acute blood loss anemia: Status post 4 units PRBC transfusion. We will continue to monitor CBC daily. 3. Chronic atrial fibrillation: Heart rate well controlled. On anticoagulation with Coumadin currently on hold 4. Coagulopathy with INR above 10 on presentation status post 10 mg of vitamin K since admission. Now back to normal range 5. Type II non-ST elevation [place]: Most likely secondary to supply/demand mismatch. Seen and evaluated by cardiology. Continue optimize medical management. Echocardiogram ordered. 6. Coronary artery disease status post bypass surgery in 2005 with left heart catheterization and stenting in 2014 7. Underlying ischemic cardiomyopathy now compensated with no evidence of exacerbation 8. Essential hypertension: Blood pressure well-controlled Status post percutaneous revascularization 9. DVT prophylaxis with SCDs Continue IV Protonix. Monitor for evidence of bleeding. Transfuse as needed for hemoglobin below 7 if no signs of ongoing bleed. Plan for colonoscopy on Monday. Repeat lab work in the morning. Appreciate revenue cycle consultant's recommendations.
--- NOTE | 2016-10-29 13:04 | P.PN ---
Subjective Principal diagnosis: Non-STEMI This is a pleasant 66-year-old male presented to the hospital with acute GI bleeding, anemia, dizziness and chest pain. He had evidence of a non-Q-wave myocardial infarction with noted ST depression in the lateral leads. Patient did receive a blood transfusion, hemoglobin today is 7.9. He was seen and examined on the telemetry unit today, denies any chest pain, breathing has been stable. Denies any dizziness. He was up in the chair yesterday, up ambulating today. Denies any chest pain, breathing is stable. Objective - Vital Signs Vital signs: Vital Signs Temp 97.1 F L 10/29/16 08:00 Pulse 82 10/29/16 08:00 Resp 18 10/29/16 08:00 BP 133/61 10/29/16 08:00 Pulse Ox 96 10/29/16 08:00 Intake & Output 10/28/16 10/29/16 10/29/16 18:59 06:59 18:59 Intake Total 480 150 560 Output Total 800 Balance -320 150 560 Weight 108.1 kg 107.5 kg Intake: Oral 480 150 560 Output: Urine 800 Other: Voiding Method Toilet Toilet # Voids 1 1 # Bowel Movements 0 - Exam PHYSICAL EXAMINATION: HEENT: Head is atraumatic, normocephalic. Pupils equal, round. Neck is supple. There is no elevated jugular venous pressure. HEART EXAMINATION: Heart S1, S2 normal. No murmur or gallop heard. CHEST EXAMINATION: Lungs are clear to auscultation and precussion. No chest wall tenderness is noted on palpation or with deep breathing. ABDOMEN: Soft, nontender. Bowel sounds are heard. No organomegaly noted. EXTREMITIES: 2+ peripheral pulses with no evidence of peripheral edema and no calf tenderness noted. NEUROLOGIC patient is awake, alert and oriented -3. . - Labs CBC & Chem 7: 10/29/16 05:41 10/29/16 05:41 Labs: Abnormal Lab Results - Last 24 Hours (Table) 10/28/16 10/28/16 10/29/16 Range/Units 17:03 20:41 05:41 RBC 2.65 L (4.30-5.90) m/uL Hgb 7.9 L (13.0-17.5) gm/dL Hct 24.1 L (39.0-53.0) % RDW 17.7 H (11.5-15.5) % Glucose (74-99) mg/dL POC Glucose (mg/dL) 121 H 170 H (75-99) mg/dL 10/29/16 10/29/16 10/29/16 Range/Units 05:41 06:18 11:49 RBC (4.30-5.90) m/uL Hgb (13.0-17.5) gm/dL Hct (39.0-53.0) % RDW (11.5-15.5) % Glucose 143 H (74-99) mg/dL POC Glucose (mg/dL) 151 H 159 H (75-99) mg/dL Assessment and Plan (1) GI bleed Status: Acute (2) Acute blood loss anemia Status: Acute (3) Coumadin toxicity Status: Acute (4) History of coronary artery disease Status: Acute (5) History of peripheral vascular disease Status: Acute (6) Non-ST elevation myocardial infarction (NSTEMI) Status: Acute (7) Diabetes Status: Acute (8) HTN (hypertension) Status: Acute (9) Hx of CABG Status: Acute (10) PAD (peripheral artery disease) Status: Acute (11) Paroxysmal a-fib Status: Acute Plan: From cardiology's perspective, we will recommend to continue the patient on his current medications. Up ambulating today. Plan for colonoscopy on Monday. Patient did have a bowel movement today which was normal in color. Check daily hemoglobins. DNP note has been reviewed, I agree with a documented findings and plan of care. Patient was seen and examined.
[2016-10-29 16:36] LABS: Glucose,Whole Blood 191 mg/dL (75-99)
[2016-10-29 20:45] LABS: Glucose,Whole Blood 157 mg/dL (75-99)
[2016-10-29 23:20] LABS: Anisocytosis Slight; CH 30.1; CHCM 33.4; HCT 24.2 % (39.0-53.0); HDW 3.23; MCV 90.9 fL (80.0-100.0); RBC 2.66 m/uL (4.30-5.90); RDW 17.1 % (11.5-15.5); WBC 7.5 k/uL (3.8-10.6)
[2016-10-30 06:25] LABS: Anisocytosis Slight; Basophils % (A) 0 %; CH 30.2; Eosinophils # (A) 0.1 k/uL (0-0.7); Eosinophils % (A) 2 %; HCT 25.9 % (39.0-53.0); HDW 3.19; HGB 8.3 gm/dL (13.0-17.5); Luc # (Auto) 0.16; Luc % (Auto) 3; Lymphocytes # (A) 1.2 k/uL (1.0-4.8); Lymphocytes % (A) 19 %; MCH 29.4 pg (25.0-35.0); MCV 92.1 fL (80.0-100.0); Mean Platelet Volume 6.9; Monocytes # (A) 0.4 k/uL (0-1.0); Monocytes % (A) 6 %; Neutrophils # (A) 4.8 k/uL (1.3-7.7); Neutrophils % (A) 71 %; RBC 2.81 m/uL (4.30-5.90); RDW 17.2 % (11.5-15.5); WBC 6.7 k/uL (3.8-10.6); WBC (Perox) 7.05
[2016-10-30 06:32] LABS: Glucose,Whole Blood 145 mg/dL (75-99)
[2016-10-30 06:37] LABS: Anion Gap 7 mmol/L; Blood Urea Nitrogen 15 mg/dL (9-20); Calcium 9.2 mg/dL (8.4-10.2); Carbon Dioxide 29 mmol/L (22-30); Chloride 102 mmol/L (98-107); Glucose 144 mg/dL (74-99); Magnesium 1.7 mg/dL (1.6-2.3); Non-African American GFR(MDRD) >60 (>60 ml/min/1.73 sqM); Potassium 4.9 mmol/L (3.5-5.1); Sodium 138 mmol/L (137-145)
[2016-10-30] MEDS: INSULIN LISPRO (humaLOG) 300 UNIT/3 ML VIAL SQ SCH ×4 (06:47→21:22)
[2016-10-30] MEDS: METOPROLOL SUCCINATE (ER) 50 MG TAB.ER.24H PO SCH ×2 (09:09→20:09)
[2016-10-30] MEDS: ATORVASTATIN 80 MG TAB PO SCH (09:09)
[2016-10-30] MEDS: ALLOPURINOL 100 MG TAB PO SCH (09:09)
[2016-10-30] MEDS: PANTOPRAZOLE 40 MG/10 ML VIAL IVP SCH (09:09)
[2016-10-30] MEDS: NITROGLYCERIN OINT 1 INCH/GM PACKET TOPICAL SCH ×3 (09:09→23:31)
--- NOTE | 2016-10-30 09:17 | PN ---
DATE OF SERVICE: 10/30/2016 REQUESTING PHYSICIAN: Dr. Chen Patient is a 66-year-old white male admitted to the hospital with non-STEMI and was also noted to have severe symptomatic anemia with a hemoglobin of 6 requiring blood transfusion. He underwent an upper endoscopy about 4 days ago, which was unremarkable other than minimal antral gastritis. He was stabilized by cardiology and now we are consulted for possible colonoscopy. The patient denies any abdominal pain. Reports no nausea, vomiting. Denies any rectal bleeding or melena. Denies any chest pain. On physical examination, he appears comfortable in no apparent distress. Vital signs are stable. Blood pressure is 132/86, pulse 85, and afebrile. HEENT examination unremarkable, conjunctivae pink, sclerae anicteric. Oral cavity no lesions. NECK: No JVD or lymph node enlargement. HEART: Regular rate and rhythm. ABDOMEN: Soft. Bowel sounds are positive. No organomegaly. EXTREMITIES: No pedal edema. SKIN: No rashes. NEURO: Alert and oriented x3. No focal deficits. LABS: Following are the labs that were done yesterday: Last hemoglobin 9.3. Rest of the labs are within normal limits. IMPRESSION: 1. Severe symptomatic anemia, status post blood transfusion at the time of admission to the hospital, upper endoscopy done 3 days ago was unremarkable. 2. Non- ST elevation myocardial infarction. Cardiology following the patient closely. RECOMMENDATIONS: Will proceed with a colonoscopy tomorrow. Discussed with the patient the risks, benefits and complications and he is agreeable to it. Thank you for this consultation.
[2016-10-30] MEDS: MAGNESIUM OXIDE 400 MG TAB PO SCH (11:50)
[2016-10-30] MEDS: LISINOPRIL 5 MG TAB PO SCH (11:50)
[2016-10-30 11:53] LABS: Glucose,Whole Blood 155 mg/dL (75-99)
--- NOTE | 2016-10-30 12:50 | P.PN ---
Subjective Principal diagnosis: Acute upper GI bleed Patient is doing well today. No events overnight. Objective - Vital Signs Vital signs: Vital Signs Temp 98 F 10/30/16 08:00 Pulse 72 10/30/16 08:00 Resp 16 10/30/16 08:00 BP 151/64 10/30/16 08:00 Pulse Ox 97 10/30/16 08:00 Intake & Output 10/29/16 10/30/16 10/30/16 18:59 06:59 18:59 Intake Total 960 650 120 Output Total 800 Balance 160 650 120 Weight 107.5 kg 108 kg Intake: IV 200 Sodium Chloride 0.9% 1, 200 000 ml @ 50 mls/hr IV . Q20H [facility] Rx#:[id number] Oral 960 450 120 Output: Urine 800 Other: Voiding Method Toilet Toilet # Voids 1 1 - Exam General: The patient is awake and alert, in no distress Eye: there is normal conjunctiva bilaterally. Neck: The neck is supple, there is no JVD. Cardiovascular: Normal S1-S2, no S3-S4, no murmurs. Respiratory: Lungs clear to auscultation bilaterally Gastrointestinal: Abdomen is soft, nontender Musculoskeletal: There is no pedal edema. Neurological:. Speech is normal. Skin: Skin is warm and dry - Labs CBC & Chem 7: 10/30/16 05:41 10/30/16 05:41 Labs: Abnormal Lab Results - Last 24 Hours (Table) 10/29/16 10/29/16 10/29/16 Range/Units 16:34 20:35 23:08 RBC 2.66 L (4.30-5.90) m/uL Hgb 8.0 L (13.0-17.5) gm/dL Hct 24.2 L (39.0-53.0) % RDW 17.1 H (11.5-15.5) % Glucose (74-99) mg/dL POC Glucose (mg/dL) 191 H 157 H (75-99) mg/dL 10/30/16 10/30/16 10/30/16 Range/Units 05:41 05:41 06:29 RBC 2.81 L (4.30-5.90) m/uL Hgb 8.3 L (13.0-17.5) gm/dL Hct 25.9 L (39.0-53.0) % RDW 17.2 H (11.5-15.5) % Glucose 144 H (74-99) mg/dL POC Glucose (mg/dL) 145 H (75-99) mg/dL 10/30/16 Range/Units 11:52 RBC (4.30-5.90) m/uL Hgb (13.0-17.5) gm/dL Hct (39.0-53.0) % RDW (11.5-15.5) % Glucose (74-99) mg/dL POC Glucose (mg/dL) 155 H (75-99) mg/dL Assessment and Plan Plan: 1. Upper GI bleed: Currently on IV Protonix. Seen and evaluated by GI. EGD showed 2 superficial erosions in the antrum with no active bleeding, otherwise unremarkable. Plan for colonoscopy on Monday. 2. Acute blood loss anemia: Status post 4 units PRBC transfusion. We will continue to monitor CBC daily. 3. Chronic atrial fibrillation: Heart rate well controlled. On anticoagulation with Coumadin currently on hold 4. Coagulopathy with INR above 10 on presentation status post 10 mg of vitamin K since admission. Now back to normal range 5. Type II non-ST elevation [place]: Most likely secondary to supply/demand mismatch. Seen and evaluated by cardiology. Continue optimize medical management. Echocardiogram ordered. 6. Coronary artery disease status post bypass surgery in 2005 with left heart catheterization and stenting in 2014 7. Underlying ischemic cardiomyopathy now compensated with no evidence of exacerbation 8. Essential hypertension: Blood pressure well-controlled Status post percutaneous revascularization 9. DVT prophylaxis with SCDs Continue IV Protonix. Monitor for evidence of bleeding. Transfuse as needed for hemoglobin below 7 if no signs of ongoing bleed. Plan for colonoscopy on Monday. Repeat lab work in the morning. Appreciate marketing sales consultant's recommendations.
--- NOTE | 2016-10-30 14:04 | P.PN ---
Subjective Principal diagnosis: Non-STEMI This is a pleasant 66-year-old male presented to the hospital with acute GI bleeding, anemia, dizziness and chest pain. He had evidence of a non-Q-wave myocardial infarction with noted ST depression in the lateral leads. Patient did receive a blood transfusion, hemoglobin today is 8.3. He was seen and examined on the telemetry unit today, denies any chest pain, breathing has been stable. Denies any dizziness. He was up in the chair yesterday, up ambulating today. Denies any chest pain, breathing is stable. Patient will be scheduled to undergo colonoscopy on Monday. Objective - Vital Signs Vital signs: Vital Signs Temp 98 F 10/30/16 08:00 Pulse 72 10/30/16 08:00 Resp 16 10/30/16 08:00 BP 151/64 10/30/16 08:00 Pulse Ox 97 10/30/16 08:00 Intake & Output 10/29/16 10/30/16 10/30/16 18:59 06:59 18:59 Intake Total 960 650 120 Output Total 800 Balance 160 650 120 Weight 107.5 kg 108 kg Intake: IV 200 Sodium Chloride 0.9% 1, 200 000 ml @ 50 mls/hr IV . Q20H [facility] Rx#:[id number] Oral 960 450 120 Output: Urine 800 Other: Voiding Method Toilet Toilet # Voids 1 1 - Exam PHYSICAL EXAMINATION: HEENT: Head is atraumatic, normocephalic. Pupils equal, round. Neck is supple. There is no elevated jugular venous pressure. HEART EXAMINATION: Heart S1, S2 normal. No murmur or gallop heard. CHEST EXAMINATION: Lungs are clear to auscultation and precussion. No chest wall tenderness is noted on palpation or with deep breathing. ABDOMEN: Soft, nontender. Bowel sounds are heard. No organomegaly noted. EXTREMITIES: 2+ peripheral pulses with no evidence of peripheral edema and no calf tenderness noted. NEUROLOGIC patient is awake, alert and oriented -3. . - Labs CBC & Chem 7: 10/30/16 05:41 10/30/16 05:41 Labs: Abnormal Lab Results - Last 24 Hours (Table) 10/29/16 10/29/16 10/29/16 Range/Units 16:34 20:35 23:08 RBC 2.66 L (4.30-5.90) m/uL Hgb 8.0 L (13.0-17.5) gm/dL Hct 24.2 L (39.0-53.0) % RDW 17.1 H (11.5-15.5) % Glucose (74-99) mg/dL POC Glucose (mg/dL) 191 H 157 H (75-99) mg/dL 10/30/16 10/30/16 10/30/16 Range/Units 05:41 05:41 06:29 RBC 2.81 L (4.30-5.90) m/uL Hgb 8.3 L (13.0-17.5) gm/dL Hct 25.9 L (39.0-53.0) % RDW 17.2 H (11.5-15.5) % Glucose 144 H (74-99) mg/dL POC Glucose (mg/dL) 145 H (75-99) mg/dL 10/30/16 Range/Units 11:52 RBC (4.30-5.90) m/uL Hgb (13.0-17.5) gm/dL Hct (39.0-53.0) % RDW (11.5-15.5) % Glucose (74-99) mg/dL POC Glucose (mg/dL) 155 H (75-99) mg/dL Assessment and Plan (1) GI bleed Status: Acute (2) Acute blood loss anemia Status: Acute (3) Coumadin toxicity Status: Acute (4) History of coronary artery disease Status: Acute (5) History of peripheral vascular disease Status: Acute (6) Non-ST elevation myocardial infarction (NSTEMI) Status: Acute (7) Diabetes Status: Acute (8) HTN (hypertension) Status: Acute (9) Hx of CABG Status: Acute (10) PAD (peripheral artery disease) Status: Acute (11) Paroxysmal a-fib Status: Acute Plan: From cardiology's perspective, we will recommend to continue the patient on his current medications. Up ambulating today. Plan for colonoscopy on Monday. Patient did have a bowel movement today which was normal in color. Check daily hemoglobins. DNP note has been reviewed, I agree with a documented findings and plan of care. Patient was seen and examined.
[2016-10-30] MEDS ORDERED: PEG 3350-NA SULF,BICARB,CL/KCL 4,000 ML BOTTLE PO ONE (16:00)
[2016-10-30 16:36] LABS: Glucose,Whole Blood 111 mg/dL (75-99)
[2016-10-30 20:48] LABS: Glucose,Whole Blood 162 mg/dL (75-99)
[2016-10-31 06:35] LABS: Anisocytosis Slight; Basophils % (A) 1 %; CH 30.1; CHCM 33.2; Eosinophils # (A) 0.2 k/uL (0-0.7); Eosinophils % (A) 3 %; HCT 25.2 % (39.0-53.0); HDW 3.25; HGB 8.3 gm/dL (13.0-17.5); Luc # (Auto) 0.14; Luc % (Auto) 2; Lymphocytes # (A) 1.4 k/uL (1.0-4.8); Lymphocytes % (A) 22 %; MCH 30.1 pg (25.0-35.0); MCHC 32.9 g/dL (31.0-37.0); MCV 91.3 fL (80.0-100.0); Mean Platelet Volume 6.7; Monocytes # (A) 0.4 k/uL (0-1.0); Monocytes % (A) 6 %; Neutrophils # (A) 4.2 k/uL (1.3-7.7); Neutrophils % (A) 67 %; RBC 2.76 m/uL (4.30-5.90); RDW 16.8 % (11.5-15.5); WBC 6.3 k/uL (3.8-10.6); WBC (Perox) 6.72
[2016-10-31] MEDS: INSULIN LISPRO (humaLOG) 300 UNIT/3 ML VIAL SQ SCH ×4 (06:37→21:10)
[2016-10-31 06:38] LABS: Glucose,Whole Blood 141 mg/dL (75-99)
[2016-10-31 06:48] LABS: Anion Gap 8 mmol/L; Blood Urea Nitrogen 14 mg/dL (9-20); Calcium 8.9 mg/dL (8.4-10.2); Carbon Dioxide 30 mmol/L (22-30); Chloride 99 mmol/L (98-107); Glucose 125 mg/dL (74-99); Magnesium 1.5 mg/dL (1.6-2.3); Non-African American GFR(MDRD) 55 (>60 ml/min/1.73 sqM); Potassium 4.8 mmol/L (3.5-5.1); Sodium 137 mmol/L (137-145)
[2016-10-31] MEDS: NITROGLYCERIN OINT 1 INCH/GM PACKET TOPICAL SCH ×3 (07:43→23:37)
[2016-10-31] MEDS: PANTOPRAZOLE 40 MG/10 ML VIAL IVP SCH ×2 (07:55→08:00)
[2016-10-31] MEDS: MAGNESIUM SULFATE-D5W PMX 1 GM in DEXTROSE/WATER 1 100ML.BAG IVPB SCH ×2 (09:05→11:06)
[2016-10-31 09:52] LABS: Mis test requested (Blood) PT/INR
[2016-10-31 11:40] LABS: Glucose,Whole Blood 135 mg/dL (75-99)
[2016-10-31] MEDS ORDERED: PROPOFOL 10 MG/ML 20 ML VIAL IV ONE (12:41)
[2016-10-31] MEDS ORDERED: IV FLUID CONTINUATION 1,000 ML IV ONE (13:04)
[2016-10-31] MEDS: ALLOPURINOL 100 MG TAB PO SCH (13:22)
[2016-10-31] MEDS: MAGNESIUM OXIDE 400 MG TAB PO SCH (13:22)
[2016-10-31] MEDS: METOPROLOL SUCCINATE (ER) 50 MG TAB.ER.24H PO SCH ×2 (13:22→21:10)
[2016-10-31] MEDS: ATORVASTATIN 80 MG TAB PO SCH (13:23)
--- NOTE | 2016-10-31 13:29 | P.PCN ---
Date of Procedure: 10/31/16 Procedure(s) Performed: Procedure: Colonoscopy and polypectomy. Preoperative diagnosis: Anemia and dark stools with minimal findings on EGD. Postoperative diagnosis: 1. Diffuse diverticulosis with no evidence of acute diverticulitis or strictures. 2. Distal sigmoid polyp, snared, but no large polyps or cancer. 3. No mucosal abnormalities or evidence of bleeding.. Preparation: GoLYTELY prep. Sedation: Was provided by anesthesia. Brief clinical history: the patient is a 66-year-old male a past medical history of CAD, CABG, PCI stent, atrial fibrillation, hypertension, cholelithiasis, diabetes mellitus, obesity, long-standing EtOH dependency quit May 2016, hyperlipidemia, GERD, osteoarthritis, and peripheral vascular disease. Admitted with elevated cardiac profile/acute MS, elevated PT/INR, weakness, lightheadedness, left shoulder pain with shortness of breath. Black stools 1-2 times daily since Monday. No history of GI bleeding, peptic ulcer disease, or EGD. Colonoscopy done several years ago was unremarkable. Home medications include Coumadin, baby aspirin, and Plavix. He denies coffee ground emesis, hematemesis or gross hematochezia. Denies epigastric or abdominal pain , or dyspepsia. Hemoccult stool positive. We were asked to see him for GI bleeding and anemia. Admission white count 11.8 currently 10. Hemoglobin 7.5 MCV 90. Received 2 units of blood current hemoglobin 8.2. INR was greater than 10. Vitamin K administered. Once INR was normal an EGD was performed 10/27/2016 and that showed 2 superficial erosions in the antrum with no active bleeding. No evidence of esophagitis or peptic ulcer disease. Had 3 black colored stools after EGD evaluation. Denies abdominal pain. Hemoglobin 8.4. Colonoscopy is planned to rule out possible colon pathology. The details are summarized in the history and physical and dictated consultation. Procedure: With the patient on his left lateral decubitus position and after informed consent and adequate sedation, the perianal area was inspected and it did not show any fissures or fistulas. There were no masses felt on digital rectal examination. The Olympus CFQ 160L colonoscope was then inserted in the rectum in the usual fashion and advanced to the cecum. There were multiple diverticular orifices scattered along the length of the bowel with no evidence of acute diverticulitis or strictures. No mucosal abnormalities or spontaneous bleeding was noted. There was a [id number] sized polyp in the distal sigmoid which was snared and retrieved by suction but there were no large polyps or cancer. I retroflexed endoscope in the rectum before the endoscope was withdrawn. The patient tolerated the procedure well. Plan: The patient was reassured. It is unlikely that we are dealing with a colonic source of bleeding to account for his presentation and dark stools based on the above findings. Will allow cardiac diet. Consideration can be given for a capsule endoscopy depending on the medication and other management plans by cardiology.
--- NOTE | 2016-10-31 13:31 | P.PN ---
Subjective Principal diagnosis: Acute upper GI bleed Patient is doing well today. No events overnight. Objective - Vital Signs Vital signs: Vital Signs Temp 97 F L 10/31/16 07:58 Pulse 65 10/31/16 11:05 Resp 16 10/31/16 11:05 BP 127/57 10/31/16 11:05 Pulse Ox 97 10/31/16 11:05 Intake & Output 10/30/16 10/31/16 10/31/16 18:59 06:59 18:59 Intake Total 120 4000 400 Balance 120 4000 400 Weight 108 kg Intake: IV 400 Magnesium Sulfate-D5w Pmx 200 1 gm In Dextrose/Water 1 100ml.bag @ 100 mls/hr IVPB Q1H [facility] Rx#: [id number] Oral 120 4000 Other: Voiding Method Toilet Toilet Toilet # Voids 1 1 - Labs CBC & Chem 7: 10/31/16 05:50 10/31/16 05:50 Labs: Abnormal Lab Results - Last 24 Hours (Table) 10/30/16 10/30/16 10/31/16 Range/Units 16:35 20:40 05:50 RBC 2.76 L (4.30-5.90) m/uL Hgb 8.3 L (13.0-17.5) gm/dL Hct 25.2 L (39.0-53.0) % RDW 16.8 H (11.5-15.5) % Creatinine (0.66-1.25) mg/dL Glucose (74-99) mg/dL POC Glucose (mg/dL) 111 H 162 H (75-99) mg/dL Magnesium (1.6-2.3) mg/dL 10/31/16 10/31/16 10/31/16 Range/Units 05:50 06:33 11:34 RBC (4.30-5.90) m/uL Hgb (13.0-17.5) gm/dL Hct (39.0-53.0) % RDW (11.5-15.5) % Creatinine 1.30 H (0.66-1.25) mg/dL Glucose 125 H (74-99) mg/dL POC Glucose (mg/dL) 141 H 135 H (75-99) mg/dL Magnesium 1.5 L (1.6-2.3) mg/dL Assessment and Plan Plan: 1. Upper GI bleed: Currently on IV Protonix. Seen and evaluated by GI. EGD showed 2 superficial erosions in the antrum with no active bleeding, otherwise unremarkable. Plan for colonoscopy on Monday. 2. Acute blood loss anemia: Status post 4 units PRBC transfusion. We will continue to monitor CBC daily. 3. Chronic atrial fibrillation: Heart rate well controlled. On anticoagulation with Coumadin currently on hold 4. Coagulopathy with INR above 10 on presentation status post 10 mg of vitamin K since admission. Now back to normal range 5. Type II non-ST elevation [place]: Most likely secondary to supply/demand mismatch. Seen and evaluated by cardiology. Continue optimize medical management. Echocardiogram ordered. 6. Coronary artery disease status post bypass surgery in 2005 with left heart catheterization and stenting in 2014 7. Underlying ischemic cardiomyopathy now compensated with no evidence of exacerbation 8. Essential hypertension: Blood pressure well-controlled Status post percutaneous revascularization 9. DVT prophylaxis with SCDs Patient is scheduled for colonoscopy today. Discussed with cardiology resuming his anticoagulation tonight? Continue IV Protonix. Monitor for evidence of bleeding. Transfuse as needed for hemoglobin below 7 if no signs of ongoing bleed. Repeat lab work in the morning. Appreciate universal branch consultant's recommendations.
[2016-10-31] MEDS: LISINOPRIL 5 MG TAB PO SCH (16:30)
--- NOTE | 2016-10-31 16:30 | P.PN ---
Subjective Principal diagnosis: Non-STEMI This is a pleasant 66-year-old male presented to the hospital with acute GI bleeding, anemia, dizziness and chest pain. He had evidence of a non-Q-wave myocardial infarction with noted ST depression in the lateral leads. Patient did receive a blood transfusion, hemoglobin today is 8.3. He was seen and examined on the telemetry unit today, denies any chest pain, breathing has been stable. Denies any dizziness. Patient underwent a colonoscopy today which revealed diffuse diverticulosis with no evidence of acute diverticulitis or strictures. Distal sigmoid polyp snared. No mucosal abnormalities or evidence of bleeding. Objective - Vital Signs Vital signs: Vital Signs Temp 98 F 10/31/16 15:36 Pulse 78 10/31/16 15:36 Resp 17 10/31/16 15:46 BP 133/61 10/31/16 15:36 Pulse Ox 98 10/31/16 15:36 Intake & Output 10/30/16 10/31/16 10/31/16 18:59 06:59 18:59 Intake Total 120 4000 400 Balance 120 4000 400 Weight 108 kg Intake: IV 400 Magnesium Sulfate-D5w Pmx 200 1 gm In Dextrose/Water 1 100ml.bag @ 100 mls/hr IVPB Q1H [facility] Rx#: [id number] Oral 120 4000 Other: Voiding Method Toilet Toilet Toilet # Voids 1 1 - Exam PHYSICAL EXAMINATION: HEENT: Head is atraumatic, normocephalic. Pupils equal, round. Neck is supple. There is no elevated jugular venous pressure. HEART EXAMINATION: Heart S1, S2 normal. No murmur or gallop heard. CHEST EXAMINATION: Lungs are clear to auscultation and precussion. No chest wall tenderness is noted on palpation or with deep breathing. ABDOMEN: Soft, nontender. Bowel sounds are heard. No organomegaly noted. EXTREMITIES: 2+ peripheral pulses with no evidence of peripheral edema and no calf tenderness noted. NEUROLOGIC patient is awake, alert and oriented -3. . - Labs CBC & Chem 7: 10/31/16 05:50 10/31/16 05:50 Labs: Abnormal Lab Results - Last 24 Hours (Table) 10/30/16 10/30/16 10/31/16 Range/Units 16:35 20:40 05:50 RBC 2.76 L (4.30-5.90) m/uL Hgb 8.3 L (13.0-17.5) gm/dL Hct 25.2 L (39.0-53.0) % RDW 16.8 H (11.5-15.5) % Creatinine (0.66-1.25) mg/dL Glucose (74-99) mg/dL POC Glucose (mg/dL) 111 H 162 H (75-99) mg/dL Magnesium (1.6-2.3) mg/dL 10/31/16 10/31/16 10/31/16 Range/Units 05:50 06:33 11:34 RBC (4.30-5.90) m/uL Hgb (13.0-17.5) gm/dL Hct (39.0-53.0) % RDW (11.5-15.5) % Creatinine 1.30 H (0.66-1.25) mg/dL Glucose 125 H (74-99) mg/dL POC Glucose (mg/dL) 141 H 135 H (75-99) mg/dL Magnesium 1.5 L (1.6-2.3) mg/dL Assessment and Plan (1) GI bleed Status: Acute (2) Acute blood loss anemia Status: Acute (3) Coumadin toxicity Status: Acute (4) History of coronary artery disease Status: Acute (5) History of peripheral vascular disease Status: Acute (6) Non-ST elevation myocardial infarction (NSTEMI) Status: Acute (7) Diabetes Status: Acute (8) HTN (hypertension) Status: Acute (9) Hx of CABG Status: Acute (10) PAD (peripheral artery disease) Status: Acute (11) Paroxysmal a-fib Status: Acute Plan: From cardiology's perspective, we will recommend to continue the patient on his current medications. We will speak with Dr. Hobbs regarding resuming blood thinners on this patient. If it is okay with them, we would like to start the patient on one of the novel anticoagulants, along with Plavix. We will also speak with Dr. Jaylyn Hendricks regarding timing of cardiac catheterization. This was explained to the patient in detail. DNP note has been reviewed, I agree with a documented findings and plan of care. Patient was seen and examined.
[2016-10-31 16:58] LABS: Glucose,Whole Blood 174 mg/dL (75-99)
[2016-10-31 21:09] LABS: Glucose,Whole Blood 141 mg/dL (75-99)
[2016-11-01 06:02] LABS: Anisocytosis Slight; Basophils % (A) 0 %; CH 29.9; CHCM 32.9; Eosinophils # (A) 0.1 k/uL (0-0.7); Eosinophils % (A) 2 %; HCT 24.7 % (39.0-53.0); HDW 3.27; HGB 8.1 gm/dL (13.0-17.5); Hypochromasia Slight; Luc # (Auto) 0.14; Luc % (Auto) 2; Lymphocytes # (A) 1.3 k/uL (1.0-4.8); Lymphocytes % (A) 21 %; MCH 29.8 pg (25.0-35.0); MCHC 32.7 g/dL (31.0-37.0); MCV 91.3 fL (80.0-100.0); Mean Platelet Volume 7.5; Monocytes # (A) 0.4 k/uL (0-1.0); Monocytes % (A) 6 %; Neutrophils # (A) 4.4 k/uL (1.3-7.7); Neutrophils % (A) 69 %; RBC 2.71 m/uL (4.30-5.90); RDW 16.5 % (11.5-15.5); WBC 6.4 k/uL (3.8-10.6); WBC (Perox) 7.07
[2016-11-01 06:08] LABS: Glucose,Whole Blood 158 mg/dL (75-99)
[2016-11-01 06:11] LABS: Anion Gap 7 mmol/L; Blood Urea Nitrogen 15 mg/dL (9-20); Calcium 8.8 mg/dL (8.4-10.2); Carbon Dioxide 28 mmol/L (22-30); Chloride 100 mmol/L (98-107); Glucose 146 mg/dL (74-99); Magnesium 2.1 mg/dL (1.6-2.3); Non-African American GFR(MDRD) 51 (>60 ml/min/1.73 sqM); Potassium 4.9 mmol/L (3.5-5.1); Sodium 135 mmol/L (137-145)
[2016-11-01] MEDS: INSULIN LISPRO (humaLOG) 300 UNIT/3 ML VIAL SQ SCH ×2 (06:31→11:52)
[2016-11-01] MEDS: ALLOPURINOL 100 MG TAB PO SCH (08:16)
[2016-11-01] MEDS: MAGNESIUM OXIDE 400 MG TAB PO SCH (08:16)
[2016-11-01] MEDS: NITROGLYCERIN OINT 1 INCH/GM PACKET TOPICAL SCH (08:16)
[2016-11-01] MEDS: METOPROLOL SUCCINATE (ER) 50 MG TAB.ER.24H PO SCH (08:17)
[2016-11-01] MEDS: ATORVASTATIN 80 MG TAB PO SCH (08:17)
[2016-11-01 10:15] VITALS: PULSE 77; RESP 18; TEMP 98.1
[2016-11-01] MEDS ORDERED: CLOPIDOGREL 75 MG TAB PO SCH (10:45)
[2016-11-01] MEDS: LISINOPRIL 5 MG TAB PO SCH (11:05)
[2016-11-01 11:22] VITALS: BMI 34.8
[2016-11-01 11:31] VITALS: BP 150/67
[2016-11-01 11:38] LABS: Glucose,Whole Blood 177 mg/dL (75-99)
--- NOTE | 2016-11-01 13:38 | P.DS ---
Providers Date of admission: 10/25/16 14:12 Expected date of discharge: 11/01/16 Attending physician: Chichi Chen Primary care physician: Kristel Hall [facility] Hospital Course: This is 66-year-old gentleman who presented to the hospital initially with black stool and was found to be significantly anemic requiring 4 units of blood transfusion during this hospitalization. He was also found to have a significantly elevated troponin and was admitted to the intensive care unit. He remained hemodynamically stable. Below is a list of his medical problems addressed during this hospitalization. He will be discharged home in a stable condition. He will follow-up with his primary care physician and cardiology as directed. He will need to repeat kidney function test next week. If GFR is below 50 then Rivaroxaban dose should be decreased to 15 mg at bedtime. If creatinine is back to normal may resume his metformin. 1. Upper GI bleed: Seen and evaluated by GI. EGD showed 2 superficial erosions in the antrum with no active bleeding, otherwise unremarkable. Colonoscopy showed diffuse diverticulosis with a distal sigmoid polyp that was snared but otherwise no source of bleeding. 2. Acute blood loss anemia: Status post 4 units PRBC transfusion during this admission. Anticoagulation was switched to Rivaroxaban. Coumadin will be discontinued. Hemoglobin stabilized around 8 for several days 3. Chronic atrial fibrillation: Heart rate well controlled. 4. Coagulopathy with INR above 10 on presentation status post 10 mg of vitamin K since admission. Now back to normal range 5. Type II non-ST elevation RI: Most likely secondary to supply/demand mismatch. Seen and evaluated by cardiology. Continue optimize medical management. Echocardiogram ordered and reviewed. 6. Coronary artery disease status post bypass surgery in 2005 with left heart catheterization and stenting in 2014 7. Underlying ischemic cardiomyopathy now compensated with no evidence of exacerbation 8. Essential hypertension: Blood pressure well-controlled Patient Condition at Discharge: Fair Plan - Discharge Summary New Discharge Prescriptions: Lisinopril [Zestril] 5 mg PO DAILY@1200 #30 tab Pravastatin Sodium [Pravachol] 20 mg PO HS #30 tab Rivaroxaban [Xarelto] 20 mg PO HS #30 tab Discharge Medication List Allopurinol [Zyloprim] 100 mg PO DAILY 03/16/15 [History] Cofield-3 Fatty Acids/Fish Oil [Fish Oil 1,000 mg Softgel] 1 cap PO BID 03/16/15 [ History] glipiZIDE [Glucotrol] 20 mg PO AC-BRKFST 03/16/15 [History] Nitroglycerin Sl Tabs [Nitrostat] 0.4 mg SUBLINGUAL DIRECTED PRN 05/12/16 [ History] Omeprazole [PriLOSEC] 20 mg PO AC-BID 05/12/16 [History] Cyanocobalamin [Vitamin B-12 Injection] 1,000 mcg IM Q30D 05/26/16 [History] Furosemide [Lasix] 40 mg PO DAILY #90 tablet 06/05/16 [Rx] Magnesium Oxide [Mag-Ox] 400 mg PO DAILY@1200 08/19/16 [History] Metoprolol Succinate (ER) [Toprol XL] 100 mg PO DAILY 08/19/16 [History] Spironolactone [Aldactone] 12.5 mg PO DAILY 08/19/16 [History] Clopidogrel [Plavix] 75 mg PO DAILY #30 tab 09/03/16 [Rx] Lisinopril [Zestril] 5 mg PO DAILY@1200 #30 tab 11/01/16 [Rx] Pravastatin Sodium [Pravachol] 20 mg PO HS #30 tab 11/01/16 [Rx] Rivaroxaban [Xarelto] 20 mg PO HS #30 tab 11/01/16 [Rx] Follow up Appointment(s)/Referral(s): Kristel Hall MD [Primary Care Provider] - 3 Days Discharge Disposition: HOME SELF-CARE
--- NOTE | 2016-11-01 15:41 | P.PN ---
Subjective Principal diagnosis: Non-STEMI This is a pleasant 66-year-old male presented to the hospital with acute GI bleeding, anemia, dizziness and chest pain. He had evidence of a non-Q-wave myocardial infarction with noted ST depression in the lateral leads. Patient did receive a blood transfusion, He was seen and examined on the telemetry unit today, denies any chest pain, breathing has been stable. Denies any dizziness. Patient underwent a colonoscopy which revealed diffuse diverticulosis with no evidence of acute diverticulitis or strictures. Distal sigmoid polyp snared. No mucosal abnormalities or evidence of bleeding. Seen and examined today, he's been up ambulating without any difficulty. Denies any chest pain, breathing has been stable. GI service okayed reinitiating blood thinners. The recommendation is that the patient go on xarelto 15 mg daily along with Plavix 75 mg daily, no aspirin. We will make him a follow-up appointment to see Dr. SULMA Hendricks in the office post discharge, cardiac catheterization will be performed as an outpatient. Objective - Vital Signs Vital signs: Vital Signs Temp 98.1 F 11/01/16 08:00 Pulse 77 11/01/16 11:29 Resp 18 11/01/16 11:29 BP 150/67 11/01/16 11:29 Pulse Ox 96 11/01/16 11:29 Intake & Output 10/31/16 11/01/16 11/01/16 18:59 06:59 18:59 Intake Total 640 240 480 Output Total 2400 Balance 640 -2160 480 Weight 107.1 kg 107.1 kg Intake: IV 400 Magnesium Sulfate-D5w Pmx 200 1 gm In Dextrose/Water 1 100ml.bag @ 100 mls/hr IVPB Q1H [facility] Rx#: [id number] Intake, IV Titration 0 Amount IV Fluid Continuation 1, 0 000 ml As IV .STK-MED ONE Rx#:[id number] Oral 240 240 480 Output: Urine 2400 Other: Voiding Method Toilet Toilet # Voids 1 1 2 - Exam PHYSICAL EXAMINATION: HEENT: Head is atraumatic, normocephalic. Pupils equal, round. Neck is supple. There is no elevated jugular venous pressure. HEART EXAMINATION: Heart S1, S2 normal. No murmur or gallop heard. CHEST EXAMINATION: Lungs are clear to auscultation and precussion. No chest wall tenderness is noted on palpation or with deep breathing. ABDOMEN: Soft, nontender. Bowel sounds are heard. No organomegaly noted. EXTREMITIES: 2+ peripheral pulses with no evidence of peripheral edema and no calf tenderness noted. NEUROLOGIC patient is awake, alert and oriented -3. . - Labs CBC & Chem 7: 11/01/16 05:44 11/01/16 05:44 Labs: Abnormal Lab Results - Last 24 Hours (Table) 10/31/16 10/31/16 11/01/16 Range/Units 16:46 21:05 05:44 RBC 2.71 L (4.30-5.90) m/uL Hgb 8.1 L (13.0-17.5) gm/dL Hct 24.7 L (39.0-53.0) % RDW 16.5 H (11.5-15.5) % Sodium (137-145) mmol/L Creatinine (0.66-1.25) mg/dL Glucose (74-99) mg/dL POC Glucose (mg/dL) 174 H 141 H (75-99) mg/dL 11/01/16 11/01/16 11/01/16 Range/Units 05:44 06:07 11:32 RBC (4.30-5.90) m/uL Hgb (13.0-17.5) gm/dL Hct (39.0-53.0) % RDW (11.5-15.5) % Sodium 135 L (137-145) mmol/L Creatinine 1.40 H (0.66-1.25) mg/dL Glucose 146 H (74-99) mg/dL POC Glucose (mg/dL) 158 H 177 H (75-99) mg/dL Assessment and Plan (1) GI bleed Status: Acute (2) Acute blood loss anemia Status: Acute (3) Coumadin toxicity Status: Acute (4) History of coronary artery disease Status: Acute (5) History of peripheral vascular disease Status: Acute (6) Non-ST elevation myocardial infarction (NSTEMI) Status: Acute (7) Diabetes Status: Acute (8) HTN (hypertension) Status: Acute (9) Hx of CABG Status: Acute (10) PAD (peripheral artery disease) Status: Acute (11) Paroxysmal a-fib Status: Acute Plan: From cardiology's perspective, patient may be started on xarelto 15 mg one tablet daily along with Plavix 75 mg daily. No aspirin. A follow-up appointment will be made with Dr. Jaylyn Hendricks in the office in one week. Patient will be scheduled for cardiac catheterization as an outpatient. DNP note has been reviewed, I agree with a documented findings and plan of care. Patient was seen and examined.
[2016-11-01] MEDS ORDERED: RIVAROXABAN 15 MG TAB PO SCH (17:30)
== END 2016-11-01 15:09 | disposition home or self-care (01) | DRG 377 ==
LOC: EC 11:00 → 6ICU 14:12 → 6SEL 10-26 22:48
PROVIDERS: ADMIT Internal Medicine; ATTEND Internal Medicine
PROC: 30233N1 Transfusion of Nonautologous Red Blood Cells into Peripheral Vein, Percutaneous Approach (ICD-10-PCS; 2016-10-25)
PROC: 0DBN8ZX Excision of Sigmoid Colon, Via Natural or Artificial Opening Endoscopic, Diagnostic (ICD-10-PCS; principal; 2016-10-27 08:20)
PROC: 0DJ08ZZ Inspection of Upper Intestinal Tract, Via Natural or Artificial Opening Endoscopic (ICD-10-PCS; 2016-10-31)
DX: K92.2 Gastrointestinal hemorrhage, unspecified (principal); I21.4 Non-ST elevation (NSTEMI) myocardial infarction; I50.22 Chronic systolic (congestive) heart failure; D62 Acute posthemorrhagic anemia; D12.5 Benign neoplasm of sigmoid colon; I48.0 Paroxysmal atrial fibrillation; I10 Essential (primary) hypertension; E11.9 Type 2 diabetes mellitus without complications; E78.5 Hyperlipidemia, unspecified; I25.10 Atherosclerotic heart disease of native coronary artery without angina pectoris; I25.5 Ischemic cardiomyopathy; I48.2 Chronic atrial fibrillation; I73.9 Peripheral vascular disease, unspecified; K21.9 Gastro-esophageal reflux disease without esophagitis; K57.90 Diverticulosis of intestine, part unspecified, without perforation or abscess without bleeding; M10.9 Gout, unspecified; R79.1 Abnormal coagulation profile; T45.515A Adverse effect of anticoagulants, initial encounter; E66.9 Obesity, unspecified; F10.20 Alcohol dependence, uncomplicated; M19.90 Unspecified osteoarthritis, unspecified site; K25.9 Gastric ulcer, unspecified as acute or chronic, without hemorrhage or perforation; Z79.01 Long term (current) use of anticoagulants; Z79.02 Long term (current) use of antithrombotics/antiplatelets; Z79.82 Long term (current) use of aspirin; Z79.84 Long term (current) use of oral hypoglycemic drugs; Z79.899 Other long term (current) drug therapy; Z95.1 Presence of aortocoronary bypass graft; Z95.5 Presence of coronary angioplasty implant and graft; Z87.891 Personal history of nicotine dependence; Y92.009 Unspecified place in unspecified non-institutional (private) residence as the place of occurrence of the external cause
CPT/HCPCS: 36415; 36430; 43235; 45385; 71020; 74000; 80048; 80053; 80061; 82272; 82550; 82553; 83036; 83735; 84100; 84484; 85025; 85027; 85610; 85730; 86850; 86900; 86901; 86920; 88305; 93005; 93306; 99291

== ENCOUNTER → 2016-11-17 | Outpatient (CLI) | payer MEDICARE ==
[2016-11-17 09:19] LABS: CH 29.1; CHCM 31.8; HCT 33.4 % (39.0-53.0); HDW 3.27; Hypochromasia Slight; MCH 30.3 pg (25.0-35.0); Mean Platelet Volume 6.5; RBC 3.63 m/uL (4.30-5.90); WBC 9.4 k/uL (3.8-10.6)
[2016-11-17 09:31] LABS: Potassium 5.2 mmol/L (3.5-5.1)
== END ==
LOC: LABPAT 08:32
PROVIDERS: ATTEND Internal Medicine Interventional Cardiology
DX: Z01.812 Encounter for preprocedural laboratory examination (principal); I25.10 Atherosclerotic heart disease of native coronary artery without angina pectoris
CPT/HCPCS: 80051; 82565; 84520; 85027

== ENCOUNTER 2016-11-22 07:21 | Day surgery (SDC) | payer MEDICARE ==
[2016-11-17 14:43] VITALS: BMI 35.4
[~2016-11-22 07:21] MED LIST changes: +ALPRAZolam 0.5 MG TAB PO PRN; +ATORVASTATIN 80 MG TAB PO STA; +NITROGLYCERIN SL TABS 0.4 MG TAB SUBLINGUAL PRN; -SODIUM CHLORIDE 0.9% 1,000 ML in EMPTY BAG 1 BAG IV ONE
[2016-11-22] MEDS ORDERED: SODIUM CHLORIDE 0.9% 1,000 ML in EMPTY BAG 1 BAG IV ONE (07:30)
[2016-11-22 08:06] LABS: Glucose,Whole Blood 158 mg/dL (75-99)
[2016-11-22 08:09] VITALS: RESP 16
[2016-11-22 08:13] LABS: Anion Gap 13 mmol/L; Blood Urea Nitrogen 28 mg/dL (9-20); Calcium 9.5 mg/dL (8.4-10.2); Carbon Dioxide 25 mmol/L (22-30); Chloride 103 mmol/L (98-107); Glucose 156 mg/dL (74-99); Non-African American GFR(MDRD) 54 (>60 ml/min/1.73 sqM); Sodium 141 mmol/L (137-145)
[2016-11-22 08:31] LABS: Potassium 5.7 mmol/L (3.5-5.1)
[2016-11-22] MEDS ORDERED: LIDOCAINE 2% INJ 20 MG/ML (20 ML MDV) ONE (10:15)
[2016-11-22] MEDS ORDERED: MIDAZOLAM 2 MG/2 ML VIAL ONE (10:16)
[2016-11-22] MEDS: MIDAZOLAM 2 MG/2 ML VIAL IVP ONE ×2 (10:36→10:46)
[2016-11-22] MEDS ORDERED: diphenhydrAMINE 50 MG/ML 1 ML VIAL ONE (10:37)
[2016-11-22] MEDS ORDERED: diphenhydrAMINE 50 MG/ML 1 ML VIAL IVP ONE (10:38)
[2016-11-22] MEDS ORDERED: LIDOCAINE 2% INJ 20 MG/ML SQ ONE (10:42)
[2016-11-22] MEDS ORDERED: IODIXANOL 320 MG/ML 100 ML INTRAARTER ONE (11:01)
[2016-11-22] MEDS ORDERED: RX INFO: IV CONTRAST WAS GIVEN 1 EACH MISC MISCELLANE PRN (11:21)
[2016-11-22] MEDS ORDERED: SODIUM CHLORIDE 0.9% 1,000 ML IV SCH (11:30)
[2016-11-22 11:50] LABS: Glucose,Whole Blood 140 mg/dL (75-99)
[2016-11-22] MEDS ORDERED: ACETAMINOPHEN TAB 325 MG TAB PO PRN (13:51)
[2016-11-22] MEDS ORDERED: ACETAMINOPHEN TAB 325 MG TAB ONE (13:53)
[2016-11-22 16:28] VITALS: TEMP 97.8
[2016-11-22 18:20] VITALS: BP 147/87; PULSE 68
--- NOTE | 2016-11-22 20:02 | CC ---
DATE OF SERVICE: 11/22/2016 PROCEDURE: Coronary angiography and selective injection of bypass grafts. PERFORMED BY: Dr. Geovanna Hendricks. CLINICAL INFORMATION: Mr. Kevin Mcknight is a 66-year-old gentleman with a known history of aortocoronary bypass surgery that was performed in 2005. He had a VALLE to LAD, a vein graft to the obtuse marginal and a vein graft to the PDA branch of RCA. In March of 2015 I performed stenting of the ostium and mid circumflex coronary artery. His vein graft to the PDA had significant disease beyond insertion site, but VALLE to LAD and vein graft to the obtuse marginal were patent with good flow. A few weeks ago he presented with severe GI bleed and his antiplatelet agents were held. Blood transfusion was given. At that time he had a significant troponin elevation and therefore he was brought in for a cardiac catheterization to check the status of his bypass grafts and upper [place] circumflex that was stented in March of 2015. Patient had bilateral SFA stenting by Dr. Porras as well. PROCEDURE NOTE: Under local anesthesia and strict aseptic precautions, a 6 Kinyarwanda introducer was placed in the right femoral artery. I used an Amplatz wire because of scar tissue. The sheath was positioned very nicely. I used a standard left Grant catheter for the left coronary artery, a Vivi catheter for the vein graft to the PDA as well as the obtuse marginal graft, and also the VALLE. I also used another AR-2 catheter to get a better injection of the PDA graft. LV gram was not performed. LV pressures were not checked. The sheath was taken out. Manual compression was used to secure hemostasis. He was sent to the room in stable condition. Patient's creatinine was elevated and he was hydrated before the procedure and the creatinine was about 1.33. He will also be hydrated for a few hours after the procedure. This patient received conscious sedation with Benadryl and Versed for a total duration of 30 minutes. CARDIAC CATHETERIZATION FINDINGS CORONARY ANGIOGRAPHIC FINDINGS LEFT MAIN CORONARY ARTERY: Moderately diseased vessel with ostial calcification and disease of 30% to 40%. Bifurcates into LAD and circumflex. LEFT ANTERIOR DESCENDING CORONARY ARTERY: This vessel has limited ( ) flow; diffusely diseased, totally occluded in the mid portion. LEFT POSTERIOR CIRCUMFLEX CORONARY ARTERY: This vessel was stented in the ostium as well as the mid portion. Now this vessel is subtotally occluded with limited antegrade flow and there is diffuse disease. It appeared that this is a chronic occlusion. RIGHT CORONARY ARTERY: This vessel is totally occluded with limited antegrade flow. SAPHENOUS VEIN GRAFT TO THE PDA BRANCH OF RCA: Graft itself is widely patent, and at the end at the insertion site also there is no disease, but beyond insertion the PDA is diffusely diseased. SAPHENOUS VEIN GRAFT TO THE PLV BRANCH OF CIRCUMFLEX: This graft is widely patent at its origin, course and insertion site and opacifies the PLV branch, which is free of significant disease. LEFT INTERNAL MAMMARY ARTERY GRAFT TO LAD: This graft is widely patent at its origin, course and insertion site; opacifies the entire LAD and proximally also fills septal branches. No significant disease in VALLE graft. FINAL IMPRESSION: This patient has a total occlusion of the upper [place] circumflex that was stented in March of 2015. This appears to be a chronic occlusion with severe diffuse disease and not easily amenable to intervention percutaneously at this time, especially in a patient with renal failure. His vein graft to the PDA is patent, but the PDA itself is diffusely diseased. The vein graft to the obtuse marginal/PLV branch of circumflex and the VALLE to LAD are widely patent. LV pressures were not obtained. LV gram was not performed. RECOMMENDATIONS: I am recommending aggressive medical therapy with risk factor modification without any specific percutaneous intervention. The chance of opening up the circumflex is very low and the restenosis ( ) is very high. I explained this to the patient and his . We will pursue aggressive medical therapy and risk factor modification. Patient will be discharged later on today and I will see him in the office the next week. Findings and results were discussed with the patient and his .
--- NOTE | 2016-11-22 20:04 | LTR ---
November 22, 2016 RE: Kevin Mcknight Dear Dr. Hall, Please find enclosed my detailed cardiac catheterization report for your records. I am disappointed to note that his circumflex vessel that was stented in 2015 is now occluded. I do not think it is easily amenable to percutaneous coronary intervention. We will therefore pursue medical therapy. Thank you for your referral. Please do call with questions. Sincerely, LUIS DANIEL MCNAMARA MD
== END 2016-11-22 18:22 | disposition home or self-care (01) ==
LOC: CATHCVL 07:21
PROVIDERS: ATTEND Internal Medicine Interventional Cardiology
DX: I25.110 Atherosclerotic heart disease of native coronary artery with unstable angina pectoris (principal); I25.82 Chronic total occlusion of coronary artery; Z95.5 Presence of coronary angioplasty implant and graft; Z95.1 Presence of aortocoronary bypass graft; I73.9 Peripheral vascular disease, unspecified; I11.0 Hypertensive heart disease with heart failure; I50.21 Acute systolic (congestive) heart failure; E66.9 Obesity, unspecified; Z68.35 Body mass index [BMI] 35.0-35.9, adult; I48.0 Paroxysmal atrial fibrillation; E78.00 Pure hypercholesterolemia, unspecified; E11.9 Type 2 diabetes mellitus without complications; E78.5 Hyperlipidemia, unspecified; Z82.49 Family history of ischemic heart disease and other diseases of the circulatory system; I25.2 Old myocardial infarction; Z79.01 Long term (current) use of anticoagulants; Z79.84 Long term (current) use of oral hypoglycemic drugs; Z79.02 Long term (current) use of antithrombotics/antiplatelets; Z79.899 Other long term (current) drug therapy; Z88.2 Allergy status to sulfonamides; Z87.891 Personal history of nicotine dependence
CPT/HCPCS: 93455; 80048; C1769 ×3; C1894; J2001; J2250; J1200; Q9967

== ENCOUNTER 2017-09-08 06:30 | Day surgery (SDC) | payer MEDICARE ==
[2017-08-31 16:43] VITALS: BMI 35.9
[2017-09-08] MEDS ORDERED: SODIUM CHLORIDE 0.9% 1,000 ML in EMPTY BAG 1 BAG IV ONE (06:32)
[2017-09-08 07:04] VITALS: PULSE 77; RESP 20; TEMP 97.9
[2017-09-08 07:04] LABS: Basophils # (A) 0.1 k/uL (0-0.2); Basophils % (A) 1 %; Eosinophils # (A) 0.2 k/uL (0-0.7); Eosinophils % (A) 2 %; HCT 41.6 % (39.0-53.0); HGB 13.9 gm/dL (13.0-17.5); Lymphocytes # (A) 2.4 k/uL (1.0-4.8); Lymphocytes % (A) 23 %; MCH 29.3 pg (25.0-35.0); MCHC 33.4 g/dL (31.0-37.0); MCV 87.5 fL (80.0-100.0); Mean Platelet Volume 7.1; Monocytes # (A) 0.5 k/uL (0-1.0); Monocytes % (A) 5 %; Neutrophils # (A) 6.9 k/uL (1.3-7.7); Neutrophils % (A) 68 %; Platelet Count 293 k/uL (150-450); RBC 4.75 m/uL (4.30-5.90); RDW 15.4 % (11.5-15.5); WBC 10.2 k/uL (3.8-10.6)
[2017-09-08 07:08] LABS: Glucose,Whole Blood 176 mg/dL (75-99)
[2017-09-08 07:18] LABS: Calcium 9.6 mg/dL (8.4-10.2); Potassium 4.8 mmol/L (3.5-5.1)
[2017-09-08] MEDS ORDERED: IV FLUID CONTINUATION 900 ML IV ONE (07:45)
[2017-09-08] MEDS ORDERED: MIDAZOLAM 2 MG/2 ML VIAL IVP ONE (07:59)
[2017-09-08] MEDS ORDERED: LIDOCAINE 2% INJ 20 MG/ML SQ ONE (08:03)
[2017-09-08] MEDS ORDERED: SODIUM CHLORIDE 0.9% 1,000 ML IV SCH (08:30)
--- NOTE | 2017-09-08 08:41 | IR ---
EXAMINATION TYPE: IR angio abdominal w runoff DATE OF EXAM: 09/08/2017 COMPARISON: NONE HISTORY: Peripheral vascular occlusive disease. Fluoroscopy was provided to the referring clinician. See dictated report from cardiology.
--- NOTE | 2017-09-08 08:47 | LTR ---
DATE OF SERVICE: September 08, 2017. Mr. Kevin Mcknight was experiencing right leg discomfort. He underwent a duplex study which revealed severe disease involving the right iliac artery. He underwent a peripheral angiogram which revealed critical disease involving the right common femoral artery as well as severe disease involving the right superficial femoral artery and right popliteal. He will be scheduled to undergo a FLYING SHEAR OPERATOR of these arteries in the next few weeks. Thank you for allowing me to participate in his care. Sincerely, MMMARIA DEL CARMEN / IRMAN: [id number] /
--- NOTE | 2017-09-08 08:56 | AN ---
ANGIOGRAPHY REPORT DATE OF SERVICE: September 08, 2017 PERFORMING PHYSICIAN: Nahid Porras MD, sap bw consultant. PROCEDURE PERFORMED: 1. An abdominal aortogram. 2. Bilateral lower extremities runoff. INDICATION: This is a pleasant 67-year-old gentleman who is known to have severe peripheral arterial disease and underwent in the past successful stenting of the left common iliac artery as well as successful angioplasty of bilateral superficial femoral arteries was experiencing bilateral lower extremities discomfort related to intermittent claudication. He underwent a Doppler study as an outpatient and that revealed severe disease involving the right common iliac artery. In view of that, peripheral angiogram was recommended. APPROACH: Left common femoral artery. COMPLICATION: None. LEVEL OF SEDATION: Moderate with sedation length of 17 minutes. PROCEDURE DESCRIPTION: After obtaining informed consent, the patient was brought to the cardiac general production laborer. The left common femoral artery was cannulated using micropuncture technique, the micropuncture wire passed easily then I placed a 5-Stateless sheath in the left common femoral artery. After that, I did an abdominal aortogram and bilateral lower extremities runoff using 5-Stateless pigtail catheter which was initially placed at the level of the renal arteries and it was pulled into above the bifurcation of the aorta to right and left common iliac arteries. The procedure was completed without any complication. SELECTIVE PERIPHERAL ANGIOGRAM: 1. The abdominal aorta appeared to have mild disease only. 2. Renal arteries: The right renal artery appeared to have mild to moderate disease and the left renal artery appeared to be angiographically normal. 3. Common iliac arteries: The right common iliac artery appeared to be angiographically normal. The left common iliac artery is stented and the stent appeared to have mild in-stent restenosis. 4. The internal iliac arteries: The right and left internal iliac arteries are patent. The ostial of the right internal iliac artery appeared to have severe disease. 5. External iliac arteries: The right and left external iliac arteries appeared to be angiographically normal. 6. Femoral arteries: The right common femoral artery appeared to have severe plaque, seems to be in the range of 80% to 90%. The left common femoral artery appeared to be angiographically normal. 7. Profunda: The right and left profunda are patent. 8. The SFA: . The right SFA is stented with severe in-stent restenosis. The left SFA also is stented and the stent is patent. Beside that the left SFA has a lesion in the midportion. 9. Popliteals: The right popliteal appeared to have a tight lesion and the left popliteal appeared to have mild disease only. 10.Below the knee: The arteries below the knee were not well visualized. But probably there are 3 vessels below the knee bilaterally. CONCLUSION: 1. Mild in-stent restenosis involving the left common iliac artery. 2. 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 3. Severe disease involving the right SFA in the stented segments. 4. Severe right popliteal disease. POSTPROCEDURE MANAGEMENT: The patient will be scheduled to undergo an atherectomy and balloon angioplasty of the right common femoral artery as well as right SFA and right popliteal. MMODL / IJN: [id number] /
[2017-09-08 14:26] VITALS: BP 132/60
== END 2017-09-08 14:15 | disposition home or self-care (01) ==
LOC: CATHCVL 06:30
PROVIDERS: ATTEND Internal Medicine Interventional Cardiology
DX: I70.213 Atherosclerosis of native arteries of extremities with intermittent claudication, bilateral legs (principal); T82.856A Stenosis of peripheral vascular stent, initial encounter; Y71.2 Prosthetic and other implants, materials and accessory cardiovascular devices associated with adverse incidents; E66.9 Obesity, unspecified; Z68.36 Body mass index [BMI] 36.0-36.9, adult; E78.00 Pure hypercholesterolemia, unspecified; E11.9 Type 2 diabetes mellitus without complications; I48.0 Paroxysmal atrial fibrillation; I11.0 Hypertensive heart disease with heart failure; I50.9 Heart failure, unspecified; E78.5 Hyperlipidemia, unspecified; I25.10 Atherosclerotic heart disease of native coronary artery without angina pectoris; Z95.820 Peripheral vascular angioplasty status with implants and grafts; Z87.891 Personal history of nicotine dependence; Z95.1 Presence of aortocoronary bypass graft; Z82.49 Family history of ischemic heart disease and other diseases of the circulatory system; Z79.01 Long term (current) use of anticoagulants; Z79.84 Long term (current) use of oral hypoglycemic drugs; Z79.899 Other long term (current) drug therapy; Z88.2 Allergy status to sulfonamides
CPT/HCPCS: 36200; 75625; 75716; 80048; 85025; C1894; C1769 ×4; J2001; J2250

== ENCOUNTER 2017-10-04 09:53 | Day surgery (SDC) | payer MEDICARE ==
[2017-09-29 12:51] VITALS: BMI 36.7
[2017-10-04] MEDS: SODIUM CHLORIDE 0.9% 1,000 ML in EMPTY BAG 1 BAG IV ONE ×2 (10:20→10:33)
[2017-10-04 10:26] LABS: Glucose,Whole Blood 166 mg/dL (75-99)
[2017-10-04] MEDS: MIDAZOLAM 2 MG/2 ML VIAL IV ONE ×2 (13:59→14:32)
[2017-10-04] MEDS ORDERED: LIDOCAINE 2% INJ 20 MG/ML SQ ONE (14:00)
[2017-10-04] MEDS: HEPARIN SODIUM 1,000 UN/ML (10ML VL) IV ONE ×2 (14:09→14:49)
[2017-10-04] MEDS ORDERED: NITROGLYCERIN 1000MCG/10ML SYRINGE INTRAARTER ONE (14:49)
[2017-10-04] MEDS: NITROGLYCERIN 1000MCG/10ML SYRINGE INTRAARTER ONE ×2 (14:54→15:08)
[2017-10-04] MEDS ORDERED: CLOPIDOGREL 75 MG TAB PO ONE (15:23)
[2017-10-04] MEDS ORDERED: IODIXANOL 320 MG/ML 100 ML INTRAARTER ONE (15:23)
[2017-10-04] MEDS ORDERED: LISINOPRIL 5 MG TAB PO STA (16:02)
--- NOTE | 2017-10-04 17:19 | LTR ---
October 04, [address] Hall: Mr. Kevin Mcknight underwent successful balloon angioplasty of the right popliteal and right common femoral artery with good angiographic results and without any complication. I want to thank you for allowing me to participate in his care and please do not hesitate to call if you have any question or concern. MMODL / IJN: [id number] /
[2017-10-04 18:25] LABS: Glucose,Whole Blood 118 mg/dL (75-99)
[2017-10-04] MEDS ORDERED: RIVAROXABAN 15 MG TAB PO SCH (21:15)
[2017-10-04 21:16] LABS: Glucose,Whole Blood 155 mg/dL (75-99)
--- NOTE | 2017-10-04 21:37 | AN ---
ANGIOGRAPHY REPORT DATE OF SERVICE: 10/04/2017 PERFORMING PHYSICIAN: Nahid Porras MD, microsoft infrastructure consultant. PROCEDURE PERFORMED: 1. Selective right fieus-upi-vhnr angiogram. 2. Selective right popliteal angiogram. 3. Selective right SFA angiogram. 4. Atherectomy of the right popliteal and right common femoral artery using the orbital atherectomy from CSI. 5. Successful balloon angioplasty of the right popliteal using 4.0 mm balloon, which is a drug coated balloon with good angiographic results. 6. Successful balloon angioplasty of the right common femoral artery using 6 mm drug coated balloon with good angiographic results. INDICATION: This is a pleasant 67-year-old gentleman who is known to have severe peripheral arterial disease where he underwent in the past atherectomy and balloon angioplasty of bilateral SFA was experiencing again bilateral lower extremities intermittent claudication. He underwent a peripheral angiogram a few weeks ago and that showed severe right common femoral and right SFA disease. He was brought today to undergo an intervention on both. APPROACH: Left common femoral artery. COMPLICATION: None. LEVEL OF SEDATION: Moderate with sedation length of 1 hour and 15 minutes. PROCEDURE DESCRIPTION: After obtaining informed consent, the patient was brought to cardiac carpenter/labor. The left common femoral artery was cannulated using micropuncture technique and a micropuncture wire passed easily then I placed a 6-Lao sheath 11 cm in the left common femoral artery. At that point, anticoagulation was initiated using heparin and the patient was given weight-based heparin with continuous monitoring the ACT throughout the procedure. Subsequently I did select the right SFA using an 035 advantage wire with a 5-Lao rim catheter. After that, I did exchange my 11 cm 6-Lao sheath into 70 cm 6-Lao sheath using the 035 advantage wire and the tip of the sheath was positioned in the proximal right common femoral artery. Subsequently I did I did selective right exlus-mgc-hfad angiogram, selective right popliteal, selective right SFA angiogram, selective right common femoral artery angiogram. After that, I did exchange my 035 wire into 014 ViperWire preparing for rotational atherectomy using preparing for orbital atherectomy using the CSI device. I did 3 runs of orbital atherectomy at the right popliteal and 3 runs of orbital atherectomy at the right common femoral artery at low, medium, and high speeds. Subsequently for the right popliteal I did balloon angioplasty using 4.0 mm drug coated balloon. The following angiogram showed good angiographic results. For the right common femoral artery, I used 6 mm drug coated balloon. The following angiogram showed good angiographic results. The procedure was completed without any complication. After that I did exchange my 70 cm 6-Lao sheath into 11 cm 6-Lao sheath using the 035 advantage wire. The procedure was completed without any complication. POSTPROCEDURE MANAGEMENT: 1. Dual anti-platelet therapy. 2. Risk factor modifications. 3. Follow up with the patient. MMMARIA DEL CARMEN / IRMAN: [id number] /
[2017-10-05 06:07] LABS: Glucose,Whole Blood 200 mg/dL (75-99)
[2017-10-05 06:40] LABS: HCT 37.2 % (39.0-53.0); HGB 11.9 gm/dL (13.0-17.5); MCH 28.6 pg (25.0-35.0); MCHC 31.9 g/dL (31.0-37.0); MCV 89.7 fL (80.0-100.0); Mean Platelet Volume 7.5; Platelet Count 260 k/uL (150-450); RBC 4.15 m/uL (4.30-5.90); RDW 13.8 % (11.5-15.5); WBC 9.5 k/uL (3.8-10.6)
[2017-10-05 06:49] LABS: Albumin 3.7 g/dL (3.5-5.0); Calcium 9.2 mg/dL (8.4-10.2); Potassium 4.5 mmol/L (3.5-5.1); Total Bilirubin 0.3 mg/dL (0.2-1.3); Total Protein 6.3 g/dL (6.3-8.2)
[2017-10-05 08:15] VITALS: RESP 16
[2017-10-05 08:37] VITALS: BP 136/63; PULSE 73; TEMP 97.6
[2017-10-05] MEDS ORDERED: FUROSEMIDE 20 MG TAB PO SCH (09:00)
[2017-10-05] MEDS ORDERED: METOPROLOL SUCCINATE (ER) 100 MG TAB.ER.24H PO SCH (09:00)
[2017-10-05] MEDS ORDERED: CLOPIDOGREL 75 MG TAB PO SCH (09:00)
[2017-10-05] MEDS ORDERED: MONTELUKAST 10 MG TAB PO SCH (09:00)
[2017-10-05] MEDS ORDERED: glipiZIDE 10 MG TAB PO SCH (09:30)
--- NOTE | 2017-10-05 10:51 | DS ---
DISCHARGE SUMMARY ADMISSION DATE: DISCHARGE DATE: 10/05/2017 BRIEF HISTORY: This is a pleasant 67-year-old gentleman who was admitted to the hospital yesterday and underwent successful balloon angioplasty of the right popliteal and right common femoral artery with good angiographic results and without any complication where the procedure was performed from the left groin. On follow up with him today, he is doing good. The left groin which was the access site is soft and nontender and without any bruises with good pulse above the left common femoral artery. He is going to be discharged home on dual anti-platelet therapy and statin and I will follow up with the patient next week in the office as an outpatient. MMRAIL / IRMAN: [id number] /
[2017-10-05] MEDS ORDERED: LISINOPRIL 5 MG TAB PO SCH (12:00)
[2017-10-05] MEDS ORDERED: MAGNESIUM OXIDE 400 MG TAB PO SCH (12:00)
[2017-10-05] MEDS ORDERED: RANOLAZINE 500 MG TAB.ER.12H PO SCH (21:00)
[2017-10-05] MEDS ORDERED: PRAVASTATIN SODIUM 80 MG TAB PO SCH (21:00)
--- NOTE | 2017-10-10 06:45 | IR ---
EXAMINATION TYPE: IR oil tanker captain femoral popliteal DATE OF EXAM: 10/04/2017 CLINICAL HISTORY: Peripheral vascular disease. TECHNIQUE: Fluoroscopy. COMPARISON: None. FINDINGS: Fluoroscopic guidance was provided during right lower extremity angiogram with angioplasty procedure performed by Dr. Porras. A total of 22.1 minutes of fluoroscopic time was utilized during t he procedure and 12 cine sequences are acquired. Please refer to procedure note for further details a s I was not present nor performed procedure. IMPRESSION: As Above.
== END 2017-10-05 10:31 | disposition home or self-care (01) ==
LOC: CATHCVL 09:53 → 6SEL 15:15 → CATHCVL 10-05 10:31
PROVIDERS: ATTEND Internal Medicine Interventional Cardiology
DX: I70.211 Atherosclerosis of native arteries of extremities with intermittent claudication, right leg (principal); I25.10 Atherosclerotic heart disease of native coronary artery without angina pectoris; Z95.1 Presence of aortocoronary bypass graft; E11.9 Type 2 diabetes mellitus without complications; E78.00 Pure hypercholesterolemia, unspecified; I08.1 Rheumatic disorders of both mitral and tricuspid valves; I11.0 Hypertensive heart disease with heart failure; I50.20 Unspecified systolic (congestive) heart failure; E66.9 Obesity, unspecified; Z68.36 Body mass index [BMI] 36.0-36.9, adult; Z82.49 Family history of ischemic heart disease and other diseases of the circulatory system; Z79.84 Long term (current) use of oral hypoglycemic drugs; Z79.02 Long term (current) use of antithrombotics/antiplatelets; Z79.01 Long term (current) use of anticoagulants; Z79.899 Other long term (current) drug therapy; Z88.1 Allergy status to other antibiotic agents; Z88.2 Allergy status to sulfonamides; Z87.891 Personal history of nicotine dependence
CPT/HCPCS: 37225; 80053; 85027; C1894 ×3; C1769 ×5; C1887; C1714; J2001; J2250; Q9967; J1644

== ENCOUNTER → 2018-11-27 | Outpatient (CLI) | payer MEDICARE ==
[2018-11-27 11:42] LABS: Potassium 4.9 mmol/L (3.5-5.1)
[2018-11-27 11:47] LABS: HCT 46.9 % (39.0-53.0); HGB 15.4 gm/dL (13.0-17.5); MCH 28.8 pg (25.0-35.0); MCHC 32.9 g/dL (31.0-37.0); MCV 87.6 fL (80.0-100.0); Mean Platelet Volume 7.3; Platelet Count 243 k/uL (150-450); RBC 5.35 m/uL (4.30-5.90); RDW 14.4 % (11.5-15.5); WBC 7.6 k/uL (3.8-10.6)
== END ==
LOC: LABPAT 10:44
PROVIDERS: ATTEND Internal Medicine Interventional Cardiology
DX: Z01.812 Encounter for preprocedural laboratory examination (principal); I70.213 Atherosclerosis of native arteries of extremities with intermittent claudication, bilateral legs; I10 Essential (primary) hypertension; E78.1 Pure hyperglyceridemia
CPT/HCPCS: 36415; 80051; 82565; 84520; 85027

== ENCOUNTER 2018-12-11 05:46 | Day surgery (SDC) | payer MEDICARE ==
[2018-12-06 10:18] VITALS: BMI 34.9
[2018-12-11] MEDS ORDERED: ALPRAZolam 0.25 MG TAB PO PRN (06:00)
[2018-12-11] MEDS ORDERED: SODIUM CHLORIDE 0.9% 1,000 ML in EMPTY BAG 1 BAG IV ONE (06:00)
[2018-12-11] MEDS ORDERED: ASPIRIN 325 MG TAB PO ONE (06:00)
[2018-12-11 06:37] VITALS: RESP 16; TEMP 97.8
[2018-12-11 06:39] LABS: Glucose,Whole Blood 108 mg/dL (75-99)
[2018-12-11] MEDS ORDERED: SODIUM CHLORIDE 0.9% 1,000 ML IV ONE (06:39)
[2018-12-11 07:52] LABS: Calcium 9.5 mg/dL (8.4-10.2); Potassium 4.9 mmol/L (3.5-5.1)
[2018-12-11] MEDS ORDERED: MIDAZOLAM 2 MG/2 ML VIAL IV ONE (07:58)
[2018-12-11] MEDS ORDERED: LIDOCAINE 1% INJ 10MG/ML (20 ML MDV) SQ ONE (07:58)
[2018-12-11] MEDS ORDERED: IOPAMIDOL-250 100ML BTL INTRAARTER ONE (08:16)
[2018-12-11] MEDS ORDERED: SODIUM CHLORIDE 0.9% 1,000 ML IV SCH (08:30)
--- NOTE | 2018-12-11 09:03 | IR ---
EXAMINATION TYPE: IR angio abdominal w runoff DATE OF EXAM: 12/11/2018 COMPARISON: EXAMINATION TYPE: IR angio abdominal w runoff DATE OF EXAM: 12/11/2018 COMPARISON: NONE HISTORY: Fluoroscopy time. Fluoroscopy was provided to the referring clinician. HISTORY: Fluoroscopy time. Fluoroscopy was provided to the referring clinician.
--- NOTE | 2018-12-11 09:11 | LTR ---
December 11, 2018 Re: Kevin Oakleycynthia Dear Dr. Hall: MrMitch Mcknight underwent today a peripheral angiogram and that revealed severe disease involving the right femoral artery as well as right popliteal. He will be scheduled to undergo an atherectomy and balloon angioplasty of both arteries in the next few weeks. I want to thank you for allowing me to participate in his care and please do not hesitate to call if you have any question or concern. Sincerely, MD CONY Burnham / CB: [phone] /
--- NOTE | 2018-12-11 09:17 | AN ---
ANGIOGRAPHY REPORT DATE OF SERVICE: December 11, 2018 PERFORMING PHYSICIAN: Nahid Porras MD, product development technician. PROCEDURE PERFORMED: 1. An abdominal aortogram. 2. Bilateral lower extremities runoff. INDICATION: This is a 68-year-old gentleman with history of peripheral arterial disease and prior stenting of the left common iliac artery as well as bilateral SFA was experiencing right leg discomfort consistent with intermittent claudication. He underwent an arterial duplex study in the office and that revealed severe disease involving the right iliac artery. Because of that, an abdominal aortogram and bilateral lower extremities runoff was advised. APPROACH: Left common femoral artery. COMPLICATION: None. LEVEL OF SEDATION: Moderate with sedation length of 21 minutes. PROCEDURE DESCRIPTION: After obtaining an informed consent, the patient was brought to the cardiac vat house laborer. The left common femoral artery was cannulated using micropuncture technique, the micropuncture wire passed easily then I placed a 4-Kazakh sheath in the left common femoral artery. After that, I did an abdominal aortogram and bilateral lower extremity runoff using 4- Kazakh pigtail catheter which was initially placed at the level of the renal arteries then it was pulled into above the bifurcation of the aorta to right and left common iliac arteries. The procedure was completed without any complication. SELECTIVE PERIPHERAL ANGIOGRAM: 1. The aorta is calcified with mild disease only. 2. Common iliac arteries: The right common iliac artery appeared to have mild disease only and the left common iliac artery is stented and the stent is patent. 3. Internal iliac arteries: The right and left internals are patent. 4. External: The right and left external appeared to be angiographically normal. 5. Common femoral arteries: The right common femoral artery has a focal lesion appeared to be in the range of 70% to 80%. and the left common femoral artery appeared to have mild disease only. 6. Profunda: The right and left profunda are patent. 7. SFA: The right SFA is stented in the proximal portion with intermediate in-stent restenosis. The left SFA is stented as well and the stent appeared to be patent. 8. Popliteal: The right popliteal has a tight lesion appeared to be in the range of 70% and the left popliteal appeared to have mild disease only. 9. Below the knee: The arteries below the knee were not well opacified. Probably there are 3 vessels runoff below the knee. CONCLUSION: 1. Patent stent in the left common iliac artery. 2. Severe disease involving the right common femoral artery with a focal calcified lesion. 3. Intermediate in-stent restenosis of the right SFA and patent stent in the left SFA. 4. Severe disease involving the right popliteal artery. 5. Three vessel runoff below the knee bilaterally. POSTPROCEDURE MANAGEMENT: 1. An atherectomy and WORKFORCE CONSULTANT of the right common femoral artery. 2. Also at the same session, I will do an atherectomy and balloon angioplasty of the right popliteal. 3. While we accessing the left groin to intervene on the right side, I would do selective left SFA angiogram. MMODL / IJN: [id number] /
[2018-12-11 11:45] VITALS: PULSE 64
[2018-12-11 12:30] LABS: Glucose,Whole Blood 162 mg/dL (75-99)
[2018-12-11 13:45] VITALS: BP 152/72
== END 2018-12-11 13:35 | disposition home or self-care (01) ==
LOC: CATHCVL 05:46
PROVIDERS: ATTEND Internal Medicine Interventional Cardiology
DX: E11.51 Type 2 diabetes mellitus with diabetic peripheral angiopathy without gangrene (principal); I70.211 Atherosclerosis of native arteries of extremities with intermittent claudication, right leg; Z79.84 Long term (current) use of oral hypoglycemic drugs; T82.856A Stenosis of peripheral vascular stent, initial encounter; I25.10 Atherosclerotic heart disease of native coronary artery without angina pectoris; I10 Essential (primary) hypertension; E78.5 Hyperlipidemia, unspecified; I48.0 Paroxysmal atrial fibrillation; Z87.891 Personal history of nicotine dependence; Z82.49 Family history of ischemic heart disease and other diseases of the circulatory system; Z95.1 Presence of aortocoronary bypass graft; I65.23 Occlusion and stenosis of bilateral carotid arteries; Z95.5 Presence of coronary angioplasty implant and graft; Z79.01 Long term (current) use of anticoagulants; Z79.02 Long term (current) use of antithrombotics/antiplatelets; Z79.899 Other long term (current) drug therapy; Z88.2 Allergy status to sulfonamides
CPT/HCPCS: 36200; 75625; 75716; 80048; C1894 ×3; C1769 ×4; J2250; J2001; Q9966

== ENCOUNTER 2019-01-15 10:24 | Inpatient (IN) | payer MEDICARE ==
[2019-01-15] MEDS ORDERED: PANTOPRAZOLE 40 MG/10 ML VIAL IVP STA (10:54)
[2019-01-15] MEDS ORDERED: SODIUM CHLORIDE 0.9% 500 ML 500 ML IV STA (10:54)
--- NOTE | 2019-01-15 10:54 | ED ---
General Adult HPI - General Chief complaint: GI Bleed Stated complaint: black stool Time Seen by Provider: 01/15/19 10:29 Source: patient, RN notes reviewed Mode of arrival: ambulatory Limitations: no limitations - History of Present Illness Initial comments: 69-year-old male with a complicated past medical history including atrial fibrillation, CAD, heart failure, GERD, [place], upper GI bleed presents to the emergency department for a chief complaint of black tarry stools. Patient states this has been ongoing for about 5 days. States that he has had this before in the past and it was deemed to be "internal bleeding." Patient states he is supposed to have a stent placed in his leg tomorrow so thought he should be evaluated today. Patient denies any lightheadedness, dizziness, shortness of breath, chest pain. States he otherwise feels fine besides for the black tarry stools. States he does have antacids at home but does not always take these. Denies taking excessive Motrin or steroid use. Patient denies any significant abdominal pain associated with this. Patient is anticoagulated on Xarelto and Plavix for atrial fibrillation. Patient has no other complaints at this time including shortness of breath, chest pain, abdominal pain, nausea or vomiting, headache, or visual changes. - Related Data Home Medications Medication Instructions Recorded Confirmed Allopurinol [Zyloprim] 100 mg PO DAILY 03/16/15 01/15/19 [place]-3 Fatty Acids/Fish Oil [Fish 1 cap PO BID 03/16/15 01/15/19 Oil 1,000 mg Softgel] glipiZIDE [Glucotrol] 20 mg PO AC-BRKFST 03/16/15 01/15/19 Nitroglycerin Sl Tabs [Nitrostat] 0.4 mg SUBLINGUAL Q5M PRN 05/12/16 01/15/19 Omeprazole [PriLOSEC] 20 mg PO DAILY PRN 05/12/16 01/15/19 Cyanocobalamin [Vitamin B-12 1,000 mcg IM Q30D 05/26/16 01/15/19 Injection] Magnesium Oxide [Mag-Ox] 400 mg PO DAILY 08/19/16 01/15/19 Metoprolol Succinate (ER) [Toprol 100 mg PO DAILY 08/19/16 01/15/19 XL] Empagliflozin/Linagliptin 1 tab PO DAILY 08/31/17 01/15/19 [Glyxambi 25 mg-5 mg Tablet] Montelukast [Singulair] 10 mg PO DAILY 08/31/17 01/15/19 Ranolazine [Ranexa] 500 mg PO BID 08/31/17 01/15/19 Rivaroxaban [Xarelto] 7.5 mg PO DAILY 01/11/19 01/15/19 Furosemide [Lasix] 20 mg PO DAILY 01/15/19 01/15/19 Lisinopril [Zestril] 5 mg PO DAILY 01/15/19 01/15/19 Pravastatin Sodium 80 mg PO HS 01/15/19 01/15/19 Previous Rx's Medication Instructions Recorded Clopidogrel [Plavix] 75 mg PO DAILY #30 tab 09/03/16 Allergies Allergy/AdvReac Type Severity Reaction Status Date / Time Sulfa (Sulfonamide Allergy Rash/Hives Verified 01/15/19 10:59 Antibiotics) sulfamethoxazole Allergy Rash/Hives Verified 01/15/19 10:59 [From Bactrim] trimethoprim [From Bactrim] Allergy Rash/Hives Verified 01/15/19 10:59 Review of Systems ROS Statement: Those systems with pertinent positive or pertinent negative responses have been documented in the HPI. ROS Other: All systems not noted in ROS Statement are negative. Past Medical History Past Medical History: Atrial Fibrillation, Coronary Artery Disease (CAD), Chest Pain / Angina, Heart Failure, Diabetes Mellitus, GERD/Reflux, Hyperlipidemia, Hypertension, Myocardial Infarction ([place]), Osteoarthritis (OA), Vascular Disorder Additional Past Medical History / Comment(s): BACKPAIN, Gout, Last Myocardial Infarction Date:: 09/2016 History of Any Multi-Drug Resistant Organisms: None Reported Past Surgical History: Coronary Bypass/CABG, Heart Catheterization With Stent, Orthopedic Surgery, Tonsillectomy Additional Past Surgical History / Comment(s): Rt foot surgery. CABG 2005- triple bypass. HEART STENT X2. Attempted (RT BRACHIAL ACCESS) fem-pop 08/31/16; 09/02/16 LT ANGIOGRAM,PER STAFF: PTBA W/ 1 STENT TO LT SFA. PER 09-22-16 DISCHARGE SUMMARY"BALLOON ANGIOPLASTY RT SUPERFICIAL FEM ARTERY,BALLOON ANGIOPLASTY RT COMMON FEM ARTERY AND STENTING LT ILIAC ARTERY". drainage of cyst on back 09/29/17 Past Anesthesia/Blood Transfusion Reactions: No Reported Reaction Date of Last Stent Placement:: AUG 2016 Past Psychological History: No Psychological Hx Reported Smoking Status: Former smoker Past Alcohol Use History: None Reported Past Drug Use History: None Reported - Past Family History Father Family Medical History: Myocardial Infarction ([place]) Additional Family Medical History / Comment(s): Father at the age of 65 yrs from heart problems. Mother Family Medical History: Pulmonary Embolus General Exam Limitations: no limitations General appearance: alert, in no apparent distress Head exam: Present: atraumatic, normocephalic, normal inspection Eye exam: Present: normal appearance, PERRL, EOMI. Absent: scleral icterus, conjunctival injection, periorbital swelling ENT exam: Present: normal exam, mucous membranes moist Neck exam: Present: normal inspection, full ROM. Absent: tenderness, meningismus, lymphadenopathy Respiratory exam: Present: normal lung sounds bilaterally. Absent: respiratory distress, wheezes, rales, rhonchi, stridor Cardiovascular Exam: Present: regular rate, normal rhythm, normal heart sounds. Absent: systolic murmur, diastolic murmur, rubs, gallop, clicks GI/Abdominal exam: Present: soft, normal bowel sounds. Absent: distended, tenderness, guarding, rebound, rigid Rectal exam: Present: normal rectal tone, black stool Neurological exam: Present: alert, oriented X3, CN II-XII intact Psychiatric exam: Present: normal affect, normal mood Course Vital Signs 01/15/19 01/15/19 01/15/19 10:25 11:14 11:30 Temperature 98 F Pulse Rate 71 70 65 Respiratory 20 15 12 Rate Blood Pressure 182/67 146/70 O2 Sat by Pulse 99 97 97 Oximetry 01/15/19 01/15/19 01/15/19 12:00 12:30 13:26 Temperature 98.2 F Pulse Rate 65 68 64 Respiratory 14 9 L 18 Rate Blood Pressure 127/58 114/52 112/56 O2 Sat by Pulse 98 98 98 Oximetry - Reevaluation(s) Reevaluation #1: 01/15/19 11:22 Patient was admitted about 2 years ago with similar complaints, had a normal colonoscopy at that time but didn't require 2 units of blood. EGD at that time showed 2 superficial erosions in the antrum with no active bleeding, otherwise unremarkable. EKG Findings - EKG Comments: EKG Findings:: Normal sinus rhythm, ventricular rate 69, Pr Int 180, QTC 428 Medical Decision Making - Medical Decision Making GI bleed 69-year-old male with a complicated past medical history including atrial fibrillation, CAD, heart failure, GERD, [place], upper GI bleed presents to the emergency department for a chief complaint of black tarry stools 5 days. States he has had this in the past and EGD 2 years ago does show that he had erosions in the antrum. Patient states he does have antacids at home but it does not always take them. Patient is anticoagulated on Xaretlo and Plavix, h/o a fib. No tenderness noted of the abdomen, patient does have black stool noted on rectal exam. Patient denying any constitutional symptoms. Vitals are stable. CBC unremarkable. CMP does show a creatinine of 1.48, patient will be slowly fluid resuscitated due to history of heart failure. Patient started on Protonix, type and screen pending although no transfusion required at this time patient does have a past history of requiring transfusion. Patient has no other complaints at this time including shortness of breath, chest pain, abdominal pain, nausea or vomiting, headache, or visual changes. Patient was scheduled to have a stent placed for PAD tomorrow. - Lab Data Result diagrams: 01/15/19 11:14 01/15/19 11:14 Lab Results 01/15/19 01/15/19 01/15/19 Range/Units 11:14 11:14 11:14 WBC 9.6 (3.8-10.6) k/uL RBC 4.78 (4.30-5.90) m/uL Hgb 13.8 (13.0-17.5) gm/dL Hct 42.5 (39.0-53.0) % MCV 88.8 (80.0-100.0) fL MCH 28.9 (25.0-35.0) pg MCHC 32.5 (31.0-37.0) g/dL RDW 15.1 (11.5-15.5) % Plt Count 210 (150-450) k/uL Neutrophils % 75 % Lymphocytes % 17 % Monocytes % 4 % Eosinophils % 2 % Basophils % 0 % Neutrophils # 7.2 (1.3-7.7) k/uL Lymphocytes # 1.7 (1.0-4.8) k/uL Monocytes # 0.4 (0-1.0) k/uL Eosinophils # 0.1 (0-0.7) k/uL Basophils # 0.0 (0-0.2) k/uL PT 10.0 (9.0-12.0) sec INR 0.9 (<1.2) APTT 22.9 (22.0-30.0) sec Sodium 138 (137-145) mmol/L Potassium 4.7 (3.5-5.1) mmol/L Chloride 103 (98-107) mmol/L Carbon Dioxide 27 (22-30) mmol/L Anion Gap 8 mmol/L BUN 28 H (9-20) mg/dL Creatinine 1.48 H (0.66-1.25) mg/dL Est GFR (CKD-EPI)AfAm 55 (>60 ml/min/1.73 sqM) Est GFR (CKD-EPI)NonAf 47 (>60 ml/min/1.73 sqM) Glucose 205 H (74-99) mg/dL Calcium 9.5 (8.4-10.2) mg/dL Magnesium 1.9 (1.6-2.3) mg/dL Total Bilirubin 0.4 (0.2-1.3) mg/dL AST 15 L (17-59) U/L ALT 15 L (21-72) U/L Alkaline Phosphatase 85 (38-126) U/L Troponin I (0.000-0.034) ng/mL Total Protein 7.1 (6.3-8.2) g/dL Albumin 4.3 (3.5-5.0) g/dL Stool Occult Blood (Negative) 01/15/19 01/15/19 Range/Units 11:14 11:14 WBC (3.8-10.6) k/uL RBC (4.30-5.90) m/uL Hgb (13.0-17.5) gm/dL Hct (39.0-53.0) % MCV (80.0-100.0) fL MCH (25.0-35.0) pg MCHC (31.0-37.0) g/dL RDW (11.5-15.5) % Plt Count (150-450) k/uL Neutrophils % % Lymphocytes % % Monocytes % % Eosinophils % % Basophils % % Neutrophils # (1.3-7.7) k/uL Lymphocytes # (1.0-4.8) k/uL Monocytes # (0-1.0) k/uL Eosinophils # (0-0.7) k/uL Basophils # (0-0.2) k/uL PT (9.0-12.0) sec INR (<1.2) APTT (22.0-30.0) sec Sodium (137-145) mmol/L Potassium (3.5-5.1) mmol/L Chloride (98-107) mmol/L Carbon Dioxide (22-30) mmol/L Anion Gap mmol/L BUN (9-20) mg/dL Creatinine (0.66-1.25) mg/dL Est GFR (CKD-EPI)AfAm (>60 ml/min/1.73 sqM) Est GFR (CKD-EPI)NonAf (>60 ml/min/1.73 sqM) Glucose (74-99) mg/dL Calcium (8.4-10.2) mg/dL Magnesium (1.6-2.3) mg/dL Total Bilirubin (0.2-1.3) mg/dL AST (17-59) U/L ALT (21-72) U/L Alkaline Phosphatase (38-126) U/L Troponin I <0.012 (0.000-0.034) ng/mL Total Protein (6.3-8.2) g/dL Albumin (3.5-5.0) g/dL Stool Occult Blood Positive (Negative) Disposition Clinical Impression: GI bleed Disposition: ADMITTED IP TO THIS [facility] Condition: Fair Time of Disposition: 13:08
[2019-01-15 11:34] LABS: Basophils % (A) 0 %; Eosinophils # (A) 0.1 k/uL (0-0.7); Eosinophils % (A) 2 %; HCT 42.5 % (39.0-53.0); HGB 13.8 gm/dL (13.0-17.5); Lymphocytes # (A) 1.7 k/uL (1.0-4.8); Lymphocytes % (A) 17 %; MCH 28.9 pg (25.0-35.0); MCHC 32.5 g/dL (31.0-37.0); MCV 88.8 fL (80.0-100.0); Mean Platelet Volume 7.4; Monocytes # (A) 0.4 k/uL (0-1.0); Monocytes % (A) 4 %; Neutrophils # (A) 7.2 k/uL (1.3-7.7); Neutrophils % (A) 75 %; Platelet Count 210 k/uL (150-450); RBC 4.78 m/uL (4.30-5.90); RDW 15.1 % (11.5-15.5); WBC 9.6 k/uL (3.8-10.6)
[2019-01-15 11:42] LABS: Albumin 4.3 g/dL (3.5-5.0); Calcium 9.5 mg/dL (8.4-10.2); INR 0.9 (<1.2); Magnesium 1.9 mg/dL (1.6-2.3); Partial Thromboplastin Time 22.9 sec (22.0-30.0); Potassium 4.7 mmol/L (3.5-5.1); Total Bilirubin 0.4 mg/dL (0.2-1.3); Total Protein 7.1 g/dL (6.3-8.2)
[2019-01-15] MEDS ORDERED: NALOXONE 0.4 MG/ML 1 ML VIAL IV PRN (13:03)
[2019-01-15] MEDS: SODIUM CHLORIDE 0.9% 1,000 ML IV SCH (13:25)
[2019-01-15] MEDS ORDERED: NITROGLYCERIN SL TABS 0.4 MG TAB SUBLINGUAL PRN (13:57)
--- NOTE | 2019-01-15 14:51 | P.HPIM ---
History of Present Illness H&P Date: 01/15/19 This is a 69-year-old patient of Dr. Hall who presented with complaints of GI bleed. Patient reports onset restarted noticing dark tarry stools. Patient is currently on xarelto for atrial fibrillation along with Plavix for previous stents in legs and heart. Patient denies any abdominal pain. Patient denies any nausea or vomiting. Patient does report occasional constipation. Patient reports last colonoscopy was present 2 years ago in which they found polyps and recommend 5 year follow-up. Patient denies any current alcohol use but per previous record patient does have history of EtOH abuse. Additional medical history includes atrial fibrillation, coronary artery disease, chest pain, diabetes mellitus, GERD, hyperlipidemia, hypertension, myocardial infarction, osteoarthritis, back pain, gout, coronary artery bypass graft surgery in 2005, heart sounds with S1 completed over 2 years ago and plans for balloon angioplasty to right common femoral artery scheduled for tomorrow. Stool positive for occult blood. Hgb stable at 13.8. GI services will be consulted. At this time patient denies chest pain or shortness breath. Patient denies nausea vomiting or diarrhea. Patient denies any urinary burning or frequency. Review of Systems Please refer to HPI otherwise unremarkable Past Medical History Past Medical History: Atrial Fibrillation, Coronary Artery Disease (CAD), Chest Pain / Angina, Heart Failure, Diabetes Mellitus, GERD/Reflux, Hyperlipidemia, Hypertension, Myocardial Infarction ([place]), Osteoarthritis (OA), Vascular Disorder Additional Past Medical History / Comment(s): BACKPAIN, Gout, Last Myocardial Infarction Date:: 09/2016 History of Any Multi-Drug Resistant Organisms: None Reported Past Surgical History: Coronary Bypass/CABG, Heart Catheterization With Stent, Orthopedic Surgery, Tonsillectomy Additional Past Surgical History / Comment(s): Rt foot surgery. CABG 2005- triple bypass. HEART STENT X2. Attempted (RT BRACHIAL ACCESS) fem-pop 08/31/16; 09/02/16 LT ANGIOGRAM,PER STAFF: PTBA W/ 1 STENT TO LT SFA. PER 09-22-16 DISCHARGE SUMMARY"BALLOON ANGIOPLASTY RT SUPERFICIAL FEM ARTERY,BALLOON ANGIOPLASTY RT COMMON FEM ARTERY AND STENTING LT ILIAC ARTERY". drainage of cyst on back 09/29/17 Past Anesthesia/Blood Transfusion Reactions: No Reported Reaction Date of Last Stent Placement:: AUG 2016 Past Psychological History: No Psychological Hx Reported Smoking Status: Former smoker Past Alcohol Use History: None Reported Past Drug Use History: None Reported - Past Family History Father Family Medical History: Myocardial Infarction ([place]) Additional Family Medical History / Comment(s): Father at the age of 65 yrs from heart problems. Mother Family Medical History: Pulmonary Embolus Medications and Allergies Home Medications Medication Instructions Recorded Confirmed Type Allopurinol [Zyloprim] 100 mg PO DAILY 03/16/15 01/15/19 History [place]-3 Fatty Acids/Fish Oil [Fish 1 cap PO BID 03/16/15 01/15/19 History Oil 1,000 mg Softgel] glipiZIDE [Glucotrol] 20 mg PO AC-BRKFST 03/16/15 01/15/19 History Nitroglycerin Sl Tabs [Nitrostat] 0.4 mg SUBLINGUAL Q5M PRN 05/12/16 01/15/19 History Omeprazole [PriLOSEC] 20 mg PO DAILY PRN 05/12/16 01/15/19 History Cyanocobalamin [Vitamin B-12 1,000 mcg IM Q30D 05/26/16 01/15/19 History Injection] Magnesium Oxide [Mag-Ox] 400 mg PO DAILY 08/19/16 01/15/19 History Metoprolol Succinate (ER) [Toprol 100 mg PO DAILY 08/19/16 01/15/19 History XL] Clopidogrel [Plavix] 75 mg PO DAILY #30 tab 09/03/16 01/15/19 Rx Empagliflozin/Linagliptin 1 tab PO DAILY 08/31/17 01/15/19 History [Glyxambi 25 mg-5 mg Tablet] Montelukast [Singulair] 10 mg PO DAILY 08/31/17 01/15/19 History Ranolazine [Ranexa] 500 mg PO BID 08/31/17 01/15/19 History Rivaroxaban [Xarelto] 7.5 mg PO DAILY 01/11/19 01/15/19 History Furosemide [Lasix] 20 mg PO DAILY 01/15/19 01/15/19 History Lisinopril [Zestril] 5 mg PO DAILY 01/15/19 01/15/19 History Pravastatin Sodium 80 mg PO HS 01/15/19 01/15/19 History Allergies Allergy/AdvReac Type Severity Reaction Status Date / Time Sulfa (Sulfonamide Allergy Rash/Hives Verified 01/15/19 10:59 Antibiotics) sulfamethoxazole Allergy Rash/Hives Verified 01/15/19 10:59 [From Bactrim] trimethoprim [From Bactrim] Allergy Rash/Hives Verified 01/15/19 10:59 Physical Exam Vitals: Vital Signs Temp Pulse Resp BP Pulse Ox 01/15/19 13:26 98.2 F 64 18 112/56 98 01/15/19 12:30 68 9 L 114/52 98 01/15/19 12:00 65 14 127/58 98 01/15/19 11:30 65 12 146/70 97 01/15/19 11:14 70 15 97 01/15/19 10:25 98 F 71 20 182/67 99 Intake and Output 01/14/19 01/15/19 01/15/19 22:59 06:59 14:59 Other: Weight 108.862 kg Head normocephalic Neck supple Lungs clear to auscultation bilaterally no wheezing or crackles Heart irregular rate and rhythm S1-S2, no rub or gallop Abdomen is soft nontender nondistended positive bowel sounds no hepatosplenomegaly Extremities no edema Neuro alert and orientated to 3 Results CBC & Chem 7: 01/15/19 11:14 01/15/19 11:14 Labs: Abnormal Lab Results - Last 24 Hours (Table) 01/15/19 Range/Units 11:14 BUN 28 H (9-20) mg/dL Creatinine 1.48 H (0.66-1.25) mg/dL Glucose 205 H (74-99) mg/dL AST 15 L (17-59) U/L ALT 15 L (21-72) U/L Assessment and Plan Assessment: 1. GI bleed with black tarry stools. Stool positive for occult blood. hemoGlobin currently stable at 13.8. Repeat hemoglobin ordered. GI service is consulted. Maintain on IV Protonix 2. Chronic atrial fibrillation. Patient maintained on Cymbalta. Throughout the currently on hold due to GI bleed 3. Previous history of upper GI bleed in 2017 4. History of coronary artery disease with coronary artery bypass graft surgery 2005 with left heart cath and stenting in 2014 5. Planned atherectomy and PLASTIC MANAGER of the right common femoral artery for tomorrow per Dr. Gordon. Currently on hold. 6. History of GERD 7. History of diabetes mellitus. Home meds resume sliding scale added 8. History of osteoarthritis 9. History of essential hypertension 10. History of gout 11. Chronic kidney disease stage III. Creatinine 1.48 and bun 28. This does appear baseline for patient. Patient was recently 2.0 with creatinine on 01/01/2019 we'll continue to monitor. DVT prophylaxis SCDs. GI prophylaxis Protonix Time with Patient: Greater than 30 (I performed an examination of the patient and discussed their management with the Nurse Practitioner. I have reviewed the Nurse Practitioner's notes and agree with the documented findings and plan of care. Greater than 60% of the total time spent in counseling and coordination of care)
[2019-01-15] MEDS ORDERED: ACETAMINOPHEN TAB 325 MG TAB PO PRN (14:59)
[2019-01-15 17:47] VITALS: BMI 35.4
[2019-01-15] MEDS: INSULIN ASPART (NovoLOG) 100 UNIT/ML VIAL SQ SCH ×2 (17:54→21:03)
[2019-01-15 18:04] LABS: Glucose,Whole Blood 93 mg/dL (75-99)
[2019-01-15 19:13] LABS: Basophils # (A) 0.1 k/uL (0-0.2); Basophils % (A) 1 %; Eosinophils # (A) 0.1 k/uL (0-0.7); Eosinophils % (A) 2 %; HGB 13.3 gm/dL (13.0-17.5); Lymphocytes # (A) 2.1 k/uL (1.0-4.8); Lymphocytes % (A) 23 %; MCH 29.4 pg (25.0-35.0); MCHC 32.4 g/dL (31.0-37.0); MCV 90.8 fL (80.0-100.0); Mean Platelet Volume 7.5; Monocytes # (A) 0.5 k/uL (0-1.0); Monocytes % (A) 5 %; Neutrophils # (A) 6.3 k/uL (1.3-7.7); Neutrophils % (A) 69 %; Platelet Count 204 k/uL (150-450); RBC 4.52 m/uL (4.30-5.90); RDW 15.6 % (11.5-15.5); WBC 9.1 k/uL (3.8-10.6)
[2019-01-15 20:39] LABS: Glucose,Whole Blood 154 mg/dL (75-99)
[2019-01-15] MEDS: PRAVASTATIN SODIUM 80 MG TAB PO SCH (21:03)
[2019-01-15] MEDS: RANOLAZINE 500 MG TAB.ER.12H PO SCH (21:25)
[2019-01-16] MEDS: SODIUM CHLORIDE 0.9% 1,000 ML IV SCH ×2 (03:00→17:57)
[2019-01-16 07:29] LABS: Glucose,Whole Blood 113 mg/dL (75-99)
[2019-01-16 08:23] LABS: Basophils % (A) 1 %; Eosinophils # (A) 0.1 k/uL (0-0.7); Eosinophils % (A) 2 %; HCT 42.2 % (39.0-53.0); HGB 13.4 gm/dL (13.0-17.5); Lymphocytes # (A) 2.1 k/uL (1.0-4.8); Lymphocytes % (A) 24 %; MCH 28.9 pg (25.0-35.0); MCHC 31.8 g/dL (31.0-37.0); MCV 90.7 fL (80.0-100.0); Mean Platelet Volume 6.9; Monocytes # (A) 0.5 k/uL (0-1.0); Monocytes % (A) 6 %; Neutrophils # (A) 5.9 k/uL (1.3-7.7); Neutrophils % (A) 66 %; Platelet Count 213 k/uL (150-450); RBC 4.65 m/uL (4.30-5.90); RDW 14.7 % (11.5-15.5); WBC 8.8 k/uL (3.8-10.6)
[2019-01-16 08:34] LABS: Albumin 3.9 g/dL (3.5-5.0); Calcium 8.9 mg/dL (8.4-10.2); Potassium 4.7 mmol/L (3.5-5.1); Total Bilirubin 0.7 mg/dL (0.2-1.3); Total Protein 6.6 g/dL (6.3-8.2)
[2019-01-16] MEDS: INSULIN ASPART (NovoLOG) 100 UNIT/ML VIAL SQ SCH ×4 (08:42→20:53)
[2019-01-16] MEDS: METOPROLOL SUCCINATE (ER) 100 MG TAB.ER.24H PO SCH (09:30)
[2019-01-16] MEDS: FUROSEMIDE 20 MG TAB PO SCH (09:31)
[2019-01-16] MEDS: ALLOPURINOL 100 MG TAB PO SCH (09:31)
[2019-01-16] MEDS: PANTOPRAZOLE 40 MG/10 ML VIAL IV SCH (09:31)
[2019-01-16] MEDS: RANOLAZINE 500 MG TAB.ER.12H PO SCH ×2 (09:31→21:42)
[2019-01-16] MEDS: MONTELUKAST 10 MG TAB PO SCH (09:31)
[2019-01-16] MEDS: glipiZIDE 10 MG TAB PO SCH (09:31)
[2019-01-16] MEDS: LISINOPRIL 5 MG TAB PO SCH (09:31)
--- NOTE | 2019-01-16 11:04 | P.PN ---
Subjective Progress Note Date: 01/16/19 This is a 69-year-old patient of Dr. Hall who presented with complaints of GI bleed. Patient reports onset restarted noticing dark tarry stools. Patient is currently on xarelto for atrial fibrillation along with Plavix for previous stents in legs and heart. Patient denies any abdominal pain. Patient denies any nausea or vomiting. Patient does report occasional constipation. Patient reports last colonoscopy was present 2 years ago in which they found polyps and recommend 5 year follow-up. Patient denies any current alcohol use but per previous record patient does have history of EtOH abuse. Additional medical history includes atrial fibrillation, coronary artery disease, chest pain, diabe dylan mellitus, GERD, hyperlipidemia, hypertension, myocardial infarction, osteoarthritis, back pain, gout, coronary artery bypass graft surgery in 2005, heart sounds with S1 completed over 2 years ago and plans for balloon angioplasty to right common femoral artery scheduled for tomorrow. Stool posi tive for occult blood. Hgb stable at 13.8. GI services will be consulted. At this time patient denies chest pain or shortness breath. Patient denies nausea vomiting or diarrhea. Patient denies any urinary burning or frequency. On 01/16/2019 patient is alert and oriented 3. Hemoglobin remained stable. Patient reports that he did have a bowel movement that did still appear dark but improved. Awaiting cardiology input for plan. GI services also consulted. At this time patient remains on clear liquid diet. Xarelto remains on hold. Patient denies any chest pain or shortness breath. Patient denies nausea vomiting or diarrhea. Patient denies any urinary burning or frequency Objective - Vital Signs Vital signs: Vital Signs Temp 98.2 F 01/16/19 07:00 Pulse 58 L 01/16/19 07:00 Resp 12 01/16/19 07:00 BP 148/67 01/16/19 07:00 Pulse Ox 99 01/16/19 07:00 Intake & Output 01/15/19 01/16/19 01/16/19 18:59 06:59 18:59 Intake Total 850 Balance 850 Weight 108.862 kg Intake: Intake, IV Titration 600 Amount Sodium Chloride 0.9% 1, 600 000 ml @ 75 mls/hr IV . [id number] [facility] Rx#:[id number] Oral 250 Other: Voiding Method Toilet - Exam Head normocephalic Neck supple Lungs clear to auscultation bilaterally no wheezing or crackles Heart irregular rate and rhythm S1-S2, no rub or gallop Abdomen is soft nontender nondistended positive bowel sounds no hepatosplenomegaly Extremities no edema Neuro alert and orientated to 3 - Labs CBC & Chem 7: 01/16/19 07:47 01/16/19 07:47 Labs: Abnormal Lab Results - Last 24 Hours (Table) 01/15/19 01/15/19 01/15/19 Range/Units 11:14 18:57 20:29 RDW 15.6 H (11.5-15.5) % BUN 28 H (9-20) mg/dL Creatinine 1.48 H (0.66-1.25) mg/dL Glucose 205 H (74-99) mg/dL POC Glucose (mg/dL) 154 H (75-99) mg/dL AST 15 L (17-59) U/L ALT 15 L (21-72) U/L 01/16/19 01/16/19 Range/Units 07:14 07:47 RDW (11.5-15.5) % BUN 22 H (9-20) mg/dL Creatinine 1.33 H (0.66-1.25) mg/dL Glucose 129 H (74-99) mg/dL POC Glucose (mg/dL) 113 H (75-99) mg/dL AST 14 L (17-59) U/L ALT (21-72) U/L Assessment and Plan Assessment: 1. GI bleed with black tarry stools. Stool positive for occult blood. hemoGlobin currently stable at 13.8. Repeat hemoglobin ordered. GI service is consulted. Maintain on IV Protonix 2. Chronic atrial fibrillation. Patient maintained on xarelto. currently on hold due to GI bleed. Awaiting cardiology input 3. Previous history of upper GI bleed in 2016 4. History of coronary artery disease with coronary artery bypass graft surgery 2005 with left heart cath and stenting in 2014 5. Planned atherectomy and ICE MAKER of the right common femoral artery for tomorrow per Dr. Gordon. Currently on hold. Cardiology services consulted 6. History of GERD 7. History of diabetes mellitus. Home meds resume sliding scale added 8. History of osteoarthritis 9. History of essential hypertension 10. History of gout 11. Chronic kidney disease stage III. Creatinine 1.48 and bun 28. This does appear baseline for patient. Patient was recently 2.0 with creatinine on 01/01/2019 we'll continue to monitor. DVT prophylaxis SCDs. GI prophylaxis Protonix I performed an examination of the patient and discussed their management with the Nurse Practitioner. I have reviewed the Nurse Practitioner's notes and agree with the documented findings and plan of care
[2019-01-16 11:39] LABS: Glucose,Whole Blood 141 mg/dL (75-99)
--- NOTE | 2019-01-16 13:38 | P.CONS ---
History of Present Illness - Reason for Consult Consult date: 01/16/19 GI bleed Requesting physician: Chichi Chen - Chief Complaint Melena - History of Present Illness 69-year-old gentleman with a history of GI bleed 2017, anemia, atrial fibril lation maintained on Xarelto CAD heart failure, peripheral vascular disease, [place] presents with black colored bowel movements 5 days since Monday. No gross hematemesis or coffee-ground emesis. Denies hematochezia. Denies epigastric or abdominal pain. No weight loss. Hemoglobin stable 13.4. Platelet 213. INR 0.9. BUN 28. Creatinine 1.4. FOBT positive. Patient underwent EGD colonoscopy October 2016 for evaluation of symptomatic anemia and melena with findings of 2 superficial scattered erosions in the antrum with no active bleeding. Colonoscopy diffuse colonic diverticulosis with no evidence of strictures sigmoid polypectomy no mucosal abnormalities for colorectal neoplasia. Last dose of Xarelto was Monday. He was scheduled for an outpatient peripheral angiography possible stenting today with cardiology; that has been postponed. Review of Systems RConstitutional: Denies fever, chills, sweats, weight gain, or loss. HEENT: Negative for migraines, blurred vision or loss, earaches, drainage, tinnitus, oral mucosal lesions, dysphagia, or odynophagia. Cardiac: Negative for chest pain, arrhythmias, or palpitation. Respiratory: Negative for shortness of breath, hemoptysis, cough, or sputum production. Gastrointestinal: See HPI for pertinent findings. Genitourinary: Negative for hematuria, urgency, frequency, polyuria, dysuria, or penile discharge. Musculoskeletal: Negative for muscle aches, swelling, arthritis, and arthralgi as. Neurologic: Negative for stroke or TIA. Endocrine: Negative for thyroid problems. Skin: Negative for rash or itching. Psychiatric: Negative history for depression and anxiety Past Medical History Past Medical History: Atrial Fibrillation, Coronary Artery Disease (CAD), Chest Pain / Angina, Heart Failure, Diabetes Mellitus, GERD/Reflux, Hyperlipidemia, Hypertension, Myocardial Infarction ([place]), Osteoarthritis (OA), Vascular Disorder Additional Past Medical History / Comment(s): BACKPAIN, Gout, Last Myocardial Infarction Date:: 09/2016 History of Any Multi-Drug Resistant Organisms: None Reported Past Surgical History: Coronary Bypass/CABG, Heart Catheterization With Stent, Orthopedic Surgery, Tonsillectomy Additional Past Surgical History / Comment(s): Rt foot surgery. CABG 2005- triple bypass. HEART STENT X2. Attempted (RT BRACHIAL ACCESS) fem-pop 08/31/16; 09/02/16 LT ANGIOGRAM,PER STAFF: PTBA W/ 1 STENT TO LT SFA. PER 09-22-16 DISCHARGE SUMMARY"BALLOON ANGIOPLASTY RT SUPERFICIAL FEM ARTERY,BALLOON ANGIOPLASTY RT COMMON FEM ARTERY AND STENTING LT ILIAC ARTERY". drainage of cyst on back 09/29/17 Past Anesthesia/Blood Transfusion Reactions: No Reported Reaction Date of Last Stent Placement:: AUG 2016 Past Psychological History: No Psychological Hx Reported Smoking Status: Former smoker Past Alcohol Use History: None Reported Past Drug Use History: None Reported - Past Family History Father Family Medical History: Myocardial Infarction ([place]) Additional Family Medical History / Comment(s): Father at the age of 65 yrs from heart problems. Mother Family Medical History: Pulmonary Embolus Medications and Allergies Home Medications Medication Instructions Recorded Confirmed Type Allopurinol [Zyloprim] 100 mg PO DAILY 03/16/15 01/15/19 History [place]-3 Fatty Acids/Fish Oil [Fish 1 cap PO BID 03/16/15 01/15/19 History Oil 1,000 mg Softgel] glipiZIDE [Glucotrol] 20 mg PO AC-BRKFST 03/16/15 01/15/19 History Nitroglycerin Sl Tabs [Nitrostat] 0.4 mg SUBLINGUAL Q5M PRN 05/12/16 01/15/19 History Omeprazole [PriLOSEC] 20 mg PO DAILY PRN 05/12/16 01/15/19 History Cyanocobalamin [Vitamin B-12 1,000 mcg IM Q30D 05/26/16 01/15/19 History Injection] Magnesium Oxide [Mag-Ox] 400 mg PO DAILY 08/19/16 01/15/19 History Metoprolol Succinate (ER) [Toprol 100 mg PO DAILY 08/19/16 01/15/19 History XL] Clopidogrel [Plavix] 75 mg PO DAILY #30 tab 09/03/16 01/15/19 Rx Empagliflozin/Linagliptin 1 tab PO DAILY 08/31/17 01/15/19 History [Glyxambi 25 mg-5 mg Tablet] Montelukast [Singulair] 10 mg PO DAILY 08/31/17 01/15/19 History Ranolazine [Ranexa] 500 mg PO BID 08/31/17 01/15/19 History Rivaroxaban [Xarelto] 7.5 mg PO DAILY 01/11/19 01/15/19 History Furosemide [Lasix] 20 mg PO DAILY 01/15/19 01/15/19 History Lisinopril [Zestril] 5 mg PO DAILY 01/15/19 01/15/19 History Pravastatin Sodium 80 mg PO HS 01/15/19 01/15/19 History Allergies Allergy/AdvReac Type Severity Reaction Status Date / Time Sulfa (Sulfonamide Allergy Rash/Hives Verified 01/15/19 10:59 Antibiotics) sulfamethoxazole Allergy Rash/Hives Verified 01/15/19 10:59 [From Bactrim] trimethoprim [From Bactrim] Allergy Rash/Hives Verified 01/15/19 10:59 Physical Exam Vitals: Vital Signs Temp Pulse Pulse Resp BP BP Pulse Ox 01/16/19 07:00 98.2 F 58 L 12 148/67 99 01/16/19 03:01 16 01/16/19 01:00 98.4 F 62 16 121/66 97 01/15/19 23:05 16 01/15/19 19:45 97.9 F 66 16 125/74 96 01/15/19 19:10 18 01/15/19 17:06 98 F 66 18 129/62 98 01/15/19 15:45 69 18 114/62 97 01/15/19 13:26 98.2 F 64 18 112/56 98 01/15/19 12:30 68 9 L 114/52 98 01/15/19 12:00 65 14 127/58 98 01/15/19 11:30 65 12 146/70 97 01/15/19 11:14 70 15 97 Intake and Output 01/15/19 01/16/19 01/16/19 22:59 06:59 14:59 Intake Total 250 600 Balance 250 600 Intake: Intake, IV Titration 600 Amount Sodium Chloride 0.9% 1, 600 000 ml @ 75 mls/hr IV . [id number] [facility] Rx#:[id number] Oral 250 Other: Voiding Method Toilet General appearance: The patient is alert, oriented, in no acute distress. HET: Head is normocephalic and atraumatic. Pupils are equal and reactive. Oropharynx is clear without lesions. Neck: Supple without lymphadenopathy. Trachea midline. Heart: S1 S2. Regular rate and rhythm. Lungs: No crackles or wheezes are heard. Abdomen: Soft, nontender, nondistended with bowel sounds. No peritoneal signs. No palpable organomegaly or masses. Extremities: Normal skin color and turgor. No cyanosis, rash, ulceration, clubbing, or edema. Radial and pedal pulses are 2/4 bilaterally. Neurological: No focal deficits. Strength and sensation are grossly intact. Results CBC & Chem 7: 01/16/19 07:47 01/16/19 07:47 Labs: Abnormal Lab Results - Last 24 Hours (Table) 01/15/19 01/15/19 01/15/19 Range/Units 11:14 18:57 20:29 RDW 15.6 H (11.5-15.5) % BUN 28 H (9-20) mg/dL Creatinine 1.48 H (0.66-1.25) mg/dL Glucose 205 H (74-99) mg/dL POC Glucose (mg/dL) 154 H (75-99) mg/dL AST 15 L (17-59) U/L ALT 15 L (21-72) U/L 01/16/19 01/16/19 Range/Units 07:14 07:47 RDW (11.5-15.5) % BUN 22 H (9-20) mg/dL Creatinine 1.33 H (0.66-1.25) mg/dL Glucose 129 H (74-99) mg/dL POC Glucose (mg/dL) 113 H (75-99) mg/dL AST 14 L (17-59) U/L ALT (21-72) U/L Assessment and Plan (1) GI bleed Narrative/Plan: 69-year-old gentleman with a history of peripheral vascular disease and atrial fibrillation maintained anticoagulation presents with 4 day history of black colored melanotic bowel movements on a daily basis. He has a history of symptomatic anemia melena 2 years ago status post EGD colonoscopy with findings of 2 superficial antral erosions no evidence of peptic ulcer disease and diffuse colonic diverticulosis. Etiology of melena possible peptic ulcer disease possible bleeding AVM possible small bowel source exacerbated by anticoagulation. Hemoglobin stable at 13.4. Current Visit: Yes Status: Acute Code(s): K92.2 - GASTROINTESTINAL HEMORRHAGE, UNSPECIFIED SNOMED Code(s): 81615537 Plan: 1. EGD possible small capsule endoscopy scheduled for tomorrow 01/17/2019. Cardiology has postponed their evaluation until GI workup is completed. Continue to hold anticoagulation. CBC monitoring. Continue Protonix 40 mg daily. The sugar mixer has discussed the risks, benefits and alternative therapies for the above-mentioned procedure and for both sedation/analgesia as well as necessary blood product administration, if indicated, as they pertain to this patient. The patient has indicated understanding and acceptance of the risks and procedures discussed. Thank you for this kind referral and the opportunity to participate in the care of your patient. This consultation was discussed with Dr. Campbell. The impression and plan of care have been directed as dictated.
--- NOTE | 2019-01-16 14:41 | P.CRDCN ---
History of Present Illness History of present illness: This is a pleasant 69-year-old male past medical history significant for coronary artery disease s/p bypass grafting 2005 with VALLE to LAD, SVG to OM and SVG to PDA as well as stent placement to the [place] arteries, diabetes mellitus, hypertension, peripheral vascular disease, dyslipidemia, chronic kidney disease and proxysmal atrial fibrillation. He follows in the office with Dr. Porras. He recently underwent a peripheral angiogram revealing significant disease of the right common femoral artery and is scheduled to undergo athrectomy and DYE MIXER today with Dr. Porras. Unfortunately, he came to the ED yesterday with multiple episodes of black stools. He is currently maintained on plavix and xarelto. He denies abdominal pain, dizziness, shortness of breath, chest pain or palpitations. He states this has happened to him in the past approximately 2 years ago while he was on coumadin. That time he was symptomatic. EKG reveals sinus mechanism with mild ST depression noted in the lateral leads. Laboratory data reviewed, hemoglobin on admission 13.8 repeat this morning 13.4, platelets 213, sodium 138, potassium 4.7, creatinine 1.33 magnesium 1.9, cardiac enzymes negative 1, occult blood positive. Current cardiac medications include Plavix 75 mg daily, lisinopril 5 mg daily, Toprol-XL 100 mg daily, Ranexa 500 mg twice a day, Xarelto 7.5 mg daily, pravastatin 80 mg daily and Lasix 20 mg daily. At the time of my exam: CONSTITUTIONAL: Denies fever. Denies chills. EYES: Denies blurred vision. Denies vision changes. Denies eye pain. EARS, NOSE, MOUTH & THROAT: Denies headache. Denies sore throat. Denies ear pain. CARDIOVASCULAR: Denies chest pain. Denies shortness of breath. Denies orthopnea. Denies PND. Denies palpitations. RESPIRATORY: Denies cough. GASTROINTESTINAL: Denies abdominal pain. Denies diarrhea. Denies constipation. Denies nausea. Denies vomiting. MUSCULOSKELETAL: Denies myalgias. INTEGUMENTARY: Denies pruitis. Denies rash. NEUROLOGIC: Denies numbness. Denies tingling. Denies weakness. PSYCHIATRIC: Denies anxiety. Denies depression. ENDOCRINE: Denies fatigue. Denies weight change. Denies polydipsia. Denies polyurina. GENITOURINARY: Denies burning, hematuria or urgency with micturation. HEMATOLOGIC: Denies history of anemia. Complains of black stools. Blood pressure 148/67 heart rate 58 afebrile maintaining oxygen saturation on room air GENERAL: This is a 69-year-old male in no apparent distress at the time of my examination. HEENT: Head is atraumatic, normocephalic. Pupils are equal, round. Sclerae anicteric. Conjunctivae are clear. Mucous membranes of the mouth are moist. Neck is supple. There is no jugular venous distention. No carotid bruit is heard. LUNGS: Clear to auscultation no wheezes, rales or rhonchi. No chest wall tenderness is noted on palpation or with deep breathing. HEART: Regular rate and rhythm without murmurs, rubs or gallops. S1 and S2 heard. ABDOMEN: Soft, nontender. Bowel sounds are heard. No organomegaly noted. EXTREMITIES: No evidence of peripheral edema and no calf tenderness noted. VASCULAR: Radial and dorsalis pedis pulses palpated, no evidence of clubbing. NEUROLOGIC: Patient is awake, alert and oriented x3. ASSESSMENT Acute GI bleed Peripheral vascular disease. Scheduled for outpatient athrectomy and DYE MIXER of right SFA and popliteal Paroxysmal atrial fibrillation on long-term anticoagulation Coronary artery disease status post bypass grafting and subsequent stent placement to the [place] arteries Hypertension Dyslipidemia Diabetes mellitus PLAN Procedure for today will be postponed until he evaluated by GI. Ongoing medical management. Follow up with Dr. Porras upon discharge to reschedule procedure. Thank you kindly for this consultation. Nurse Practitioner note has been reviewed, I agree with a documented findings and plan of care. Patient was seen and examined. Past Medical History Past Medical History: Atrial Fibrillation, Coronary Artery Disease (CAD), Chest Pain / Angina, Heart Failure, Diabetes Mellitus, GERD/Reflux, Hyperlipidemia, Hypertension, Myocardial Infarction ([place]), Osteoarthritis (OA), Vascular Disorder Additional Past Medical History / Comment(s): BACKPAIN, Gout, Last Myocardial Infarction Date:: 09/2016 History of Any Multi-Drug Resistant Organisms: None Reported Past Surgical History: Coronary Bypass/CABG, Heart Catheterization With Stent, Orthopedic Surgery, Tonsillectomy Additional Past Surgical History / Comment(s): Rt foot surgery. CABG 2005- triple bypass. HEART STENT X2. Attempted (RT BRACHIAL ACCESS) fem-pop 08/31/16; 09/02/16 LT ANGIOGRAM,PER STAFF: PTBA W/ 1 STENT TO LT SFA. PER 09-22-16 DISCHARGE SUMMARY"BALLOON ANGIOPLASTY RT SUPERFICIAL FEM ARTERY,BALLOON ANGIOPLASTY RT COMMON FEM ARTERY AND STENTING LT ILIAC ARTERY". drainage of cyst on back 09/29/17 Past Anesthesia/Blood Transfusion Reactions: No Reported Reaction Date of Last Stent Placement:: AUG 2016 Past Psychological History: No Psychological Hx Reported Smoking Status: Former smoker Past Alcohol Use History: None Reported Past Drug Use History: None Reported - Past Family History Father Family Medical History: Myocardial Infarction ([place]) Additional Family Medical History / Comment(s): Father at the age of 65 yrs from heart problems. Mother Family Medical History: Pulmonary Embolus Medications and Allergies Home Medications Medication Instructions Recorded Confirmed Type Allopurinol [Zyloprim] 100 mg PO DAILY 03/16/15 01/15/19 History [place]-3 Fatty Acids/Fish Oil [Fish 1 cap PO BID 03/16/15 01/15/19 History Oil 1,000 mg Softgel] glipiZIDE [Glucotrol] 20 mg PO AC-BRKFST 03/16/15 01/15/19 History Nitroglycerin Sl Tabs [Nitrostat] 0.4 mg SUBLINGUAL Q5M PRN 05/12/16 01/15/19 History Omeprazole [PriLOSEC] 20 mg PO DAILY PRN 05/12/16 01/15/19 History Cyanocobalamin [Vitamin B-12 1,000 mcg IM Q30D 05/26/16 01/15/19 History Injection] Magnesium Oxide [Mag-Ox] 400 mg PO DAILY 08/19/16 01/15/19 History Metoprolol Succinate (ER) [Toprol 100 mg PO DAILY 08/19/16 01/15/19 History XL] Clopidogrel [Plavix] 75 mg PO DAILY #30 tab 09/03/16 01/15/19 Rx Empagliflozin/Linagliptin 1 tab PO DAILY 08/31/17 01/15/19 History [Glyxambi 25 mg-5 mg Tablet] Montelukast [Singulair] 10 mg PO DAILY 08/31/17 01/15/19 History Ranolazine [Ranexa] 500 mg PO BID 08/31/17 01/15/19 History Rivaroxaban [Xarelto] 7.5 mg PO DAILY 01/11/19 01/15/19 History Furosemide [Lasix] 20 mg PO DAILY 01/15/19 01/15/19 History Lisinopril [Zestril] 5 mg PO DAILY 01/15/19 01/15/19 History Pravastatin Sodium 80 mg PO HS 01/15/19 01/15/19 History Allergies Allergy/AdvReac Type Severity Reaction Status Date / Time Sulfa (Sulfonamide Allergy Rash/Hives Verified 01/15/19 10:59 Antibiotics) sulfamethoxazole Allergy Rash/Hives Verified 01/15/19 10:59 [From Bactrim] trimethoprim [From Bactrim] Allergy Rash/Hives Verified 01/15/19 10:59 Physical Exam Vitals: Vital Signs Temp Pulse Pulse Resp BP BP Pulse Ox 01/16/19 07:00 98.2 F 58 L 12 148/67 99 01/16/19 03:01 16 01/16/19 01:00 98.4 F 62 16 121/66 97 01/15/19 23:05 16 01/15/19 19:45 97.9 F 66 16 125/74 96 01/15/19 19:10 18 01/15/19 17:06 98 F 66 18 129/62 98 01/15/19 15:45 69 18 114/62 97 01/15/19 13:26 98.2 F 64 18 112/56 98 01/15/19 12:30 68 9 L 114/52 98 01/15/19 12:00 65 14 127/58 98 01/15/19 11:30 65 12 146/70 97 01/15/19 11:14 70 15 97 01/15/19 10:25 98 F 71 20 182/67 99 Intake and Output 01/15/19 01/16/19 01/16/19 22:59 06:59 14:59 Intake Total 250 600 Balance 250 600 Intake: Intake, IV Titration 600 Amount Sodium Chloride 0.9% 1, 600 000 ml @ 75 mls/hr IV . [id number] [facility] Rx#:[id number] Oral 250 Other: Voiding Method Toilet Results 01/16/19 07:47 01/16/19 07:47 Cardiac Enzymes 01/15/19 01/15/19 01/16/19 Range/Units 11:14 11:14 07:47 AST 15 L 14 L (17-59) U/L Troponin I <0.012 (0.000-0.034) ng/mL Coagulation 01/15/19 Range/Units 11:14 PT 10.0 (9.0-12.0) sec APTT 22.9 (22.0-30.0) sec CBC 01/15/19 01/15/19 01/16/19 Range/Units 11:14 18:57 07:47 WBC 9.6 9.1 8.8 (3.8-10.6) k/uL RBC 4.78 4.52 4.65 (4.30-5.90) m/uL Hgb 13.8 13.3 13.4 (13.0-17.5) gm/dL Hct 42.5 41.0 42.2 (39.0-53.0) % Plt Count 210 204 213 (150-450) k/uL Comprehensive Metabolic Panel 01/15/19 01/16/19 Range/Units 11:14 07:47 Sodium 138 138 (137-145) mmol/L Potassium 4.7 4.7 (3.5-5.1) mmol/L Chloride 103 103 (98-107) mmol/L Carbon Dioxide 27 29 (22-30) mmol/L BUN 28 H 22 H (9-20) mg/dL Creatinine 1.48 H 1.33 H (0.66-1.25) mg/dL Glucose 205 H 129 H (74-99) mg/dL Calcium 9.5 8.9 (8.4-10.2) mg/dL AST 15 L 14 L (17-59) U/L ALT 15 L 21 (21-72) U/L Alkaline Phosphatase 85 71 (38-126) U/L Total Protein 7.1 6.6 (6.3-8.2) g/dL Albumin 4.3 3.9 (3.5-5.0) g/dL Current Medications Generic Name Dose Route Start Last Admin Trade Name Freq PRN Reason Stop Dose Admin Acetaminophen 650 mg 01/15/19 14:59 Tylenol Tab PO Q6HR PRN Fever and/ or Pain Allopurinol 100 mg 01/16/19 09:00 01/16/19 09:31 Zyloprim PO 100 mg DAILY [facility] Administration Furosemide 20 mg 01/16/19 09:00 01/16/19 09:31 Lasix PO 20 mg DAILY [facility]LE Administration Glipizide 20 mg 01/16/19 07:30 01/16/19 09:31 Glucotrol PO 20 mg AC-BRKFST [facility] Administration Sodium Chloride 1,000 mls @ 75 mls/hr 01/15/19 13:15 01/16/19 03:00 Saline 0.9% IV 75 mls/hr .[id number] [facility] Administration Insulin Aspart 0 unit 01/15/19 17:30 01/16/19 08:42 Novolog SQ Not Given ACHS [facility] Protocol Lisinopril 5 mg 01/16/19 09:00 01/16/19 09:31 Zestril PO 5 mg DAILY [facility]LE Administration Metoprolol Succinate 100 mg 01/16/19 09:00 01/16/19 09:30 Toprol Xl PO 100 mg DAILY [facility] Administration Montelukast Sodium 10 mg 01/16/19 09:00 01/16/19 09:31 Singulair PO 10 mg DAILY [facility] Administration Naloxone HCl 0.2 mg 01/15/19 13:03 Narcan IV Q2M PRN Opioid Reversal Nitroglycerin 0.4 mg 01/15/19 13:57 Nitrostat SUBLINGUAL Q5M PRN Chest Pain Pantoprazole Sodium 40 mg 01/16/19 09:00 01/16/19 09:31 Protonix IV 40 mg DAILY [facility] Administration Pravastatin Sodium 80 mg 01/15/19 21:00 01/15/19 21:03 Pravachol PO 80 mg HS [facility] Administration Ranolazine 500 mg 01/15/19 21:00 01/16/19 09:31 Ranexa PO 500 mg BID [facility] Administration Intake and Output 01/15/19 01/16/19 01/16/19 22:59 06:59 14:59 Intake Total 250 600 Balance 250 600 Intake: Intake, IV Titration 600 Amount Sodium Chloride 0.9% 1, 600 000 ml @ 75 mls/hr IV . [id number] [facility] Rx#:[id number] Oral 250 Other: Voiding Method Toilet 01/16/19 07:47 01/16/19 07:47
[2019-01-16] MEDS ORDERED: MAGNESIUM CITRATE 296 ML BOTTLE PO ONE (17:00)
[2019-01-16 17:12] LABS: Glucose,Whole Blood 133 mg/dL (75-99)
[2019-01-16 20:32] LABS: Glucose,Whole Blood 112 mg/dL (75-99)
[2019-01-16] MEDS: PRAVASTATIN SODIUM 80 MG TAB PO SCH (21:42)
[2019-01-17] MEDS: SODIUM CHLORIDE 0.9% 1,000 ML IV SCH ×2 (05:36→21:17)
[2019-01-17] MEDS: glipiZIDE 10 MG TAB PO SCH (07:00)
[2019-01-17] MEDS: ALLOPURINOL 100 MG TAB PO SCH (07:00)
[2019-01-17 07:33] LABS: Glucose,Whole Blood 132 mg/dL (75-99)
[2019-01-17] MEDS: INSULIN ASPART (NovoLOG) 100 UNIT/ML VIAL SQ SCH ×4 (07:46→21:17)
[2019-01-17 07:52] LABS: Basophils % (A) 0 %; Eosinophils # (A) 0.2 k/uL (0-0.7); Eosinophils % (A) 2 %; HCT 38.1 % (39.0-53.0); Lymphocytes # (A) 1.4 k/uL (1.0-4.8); Lymphocytes % (A) 18 %; MCH 28.6 pg (25.0-35.0); MCHC 31.5 g/dL (31.0-37.0); MCV 90.8 fL (80.0-100.0); Monocytes # (A) 0.5 k/uL (0-1.0); Monocytes % (A) 6 %; Neutrophils # (A) 5.6 k/uL (1.3-7.7); Neutrophils % (A) 72 %; Platelet Count 181 k/uL (150-450); RBC 4.19 m/uL (4.30-5.90); RDW 14.9 % (11.5-15.5); WBC 7.8 k/uL (3.8-10.6)
[2019-01-17 08:01] LABS: Albumin 3.6 g/dL (3.5-5.0); Calcium 8.7 mg/dL (8.4-10.2); Potassium 4.3 mmol/L (3.5-5.1); Total Bilirubin 0.5 mg/dL (0.2-1.3)
[2019-01-17] MEDS ORDERED: IV FLUID CONTINUATION 900 ML IV ONE (09:03)
[2019-01-17] MEDS ORDERED: PROPOFOL 10 MG/ML 20 ML VIAL IV ONE (09:04)
[2019-01-17] MEDS ORDERED: LIDOCAINE 1% INJ 10MG/ML (20 ML MDV) ONE (09:04)
--- NOTE | 2019-01-17 09:24 | P.PCN ---
Date of Procedure: 01/17/19 Description of Procedure: BRIEF HISTORY: 69-year-old gentleman with a history of GI bleed 2016, anemia, atrial fibrillation maintained on Xarelto CAD heart failure, peripheral vascular disease, AR presents with black colored bowel movements 5 days since Monday. No gross hematemesis or coffee-ground emesis. Denies hematochezia. Denies epigastric or abdominal pain. No weight loss. Hemoglobin stable 13.4. Creatinine 1.4. FOBT positive. Patient underwent EGD colonoscopy October 2016 for evaluation of symptomatic anemia and melena with findings of 2 superficial scattered erosions in the antrum with no active bleeding. Colonoscopy diffuse colonic diverticulosis with no evidence of strictures sigmoid polypectomy no mucosal abnormalities for colorectal neoplasia. Last dose of Xarelto was Monday. He was scheduled for an outpatient peripheral angiography possible stenting today with cardiology; that has been postponed.. PROCEDURE PERFORMED: Esophagogastroduodenoscopy with biopsy. PREOPERATIVE DIAGNOSIS: Melena, stool positive for occult blood. ESTIMATED BLOOD LOSS: Minimal. IV sedation per anesthesia. PROCEDURE: After informed consent was obtained, the patient was brought into the endoscopy unit. IV sedation was administered by Anesthesia under continuous monitoring. Initially the Olympus GIF-190 video endoscope was inserted into the mouth. Esophagus intubated without any difficulty. It was gradually advanced into the stomach and duodenum and carefully examined. The bulb and the second part of the duodenum appeared normal, biopsies taken. The scope at this time was withdrawn to the stomach, adequately insufflated with air, and upon careful examination, mucosa of the antrum, body, cardia and the fundus appeared grossly normal, there were some areas of patchy inflammation and superficial erosions in the antrum and body with biopsies taken. The scope was then withdrawn into the esophagus. The GE junction was located at 43 cm from the incisors. The esophagus appeared normal. There were no erosions or ulcerations seen and the patient tolerated the procedure well. IMPRESSION: 1. Mild gastritis, antrum body, biopsied. 2. Duodenal biopsies. RECOMMENDATIONS: The findings of this examination were discussed with the patient in the medical team. Continue monitor hemoglobin and hematocrit and transfuse as needed. Continue to monitor stool output. Continue Protonix therapy. Await pathology from biopsies. Plan on video capsule endoscopy today.
[2019-01-17] MEDS ORDERED: SIMETHICONE 40 MG/0.6 ML DROPS 2,000 MG/30 ML BOTTLE PO ONE (10:23)
[2019-01-17 11:33] LABS: Glucose,Whole Blood 127 mg/dL (75-99)
[2019-01-17] MEDS: FUROSEMIDE 20 MG TAB PO SCH (13:25)
[2019-01-17] MEDS: METOPROLOL SUCCINATE (ER) 100 MG TAB.ER.24H PO SCH (13:25)
[2019-01-17] MEDS: LISINOPRIL 5 MG TAB PO SCH (13:25)
[2019-01-17] MEDS: RANOLAZINE 500 MG TAB.ER.12H PO SCH ×2 (13:25→21:17)
[2019-01-17] MEDS: MONTELUKAST 10 MG TAB PO SCH (13:25)
[2019-01-17] MEDS: PANTOPRAZOLE 40 MG/10 ML VIAL IV SCH (13:25)
--- NOTE | 2019-01-17 13:46 | P.PN ---
Subjective Progress Note Date: 01/17/19 This is a 69-year-old patient of Dr. Hall who presented with complaints of GI bleed. Patient reports onset restarted noticing dark tarry stools. Patient is currently on xarelto for atrial fibrillation along with Plavix for previous stents in legs and heart. Patient denies any abdominal pain. Patient denies any nausea or vomiting. Patient does report occasional constipation. Patient reports last colonoscopy was present 2 years ago in which they found polyps and recommend 5 year follow-up. Patient denies any current alcohol use but per previous record patient does have history of EtOH abuse. Additional medical history includes atrial fibrillation, coronary artery disease, chest pain, diabe dylan mellitus, GERD, hyperlipidemia, hypertension, myocardial infarction, osteoarthritis, back pain, gout, coronary artery bypass graft surgery in 2005, heart sounds with S1 completed over 2 years ago and plans for balloon angioplasty to right common femoral artery scheduled for tomorrow. Stool posi tive for occult blood. Hgb stable at 13.8. GI services will be consulted. At this time patient denies chest pain or shortness breath. Patient denies nausea vomiting or diarrhea. Patient denies any urinary burning or frequency. On 01/16/2019 patient is alert and oriented 3. Hemoglobin remained stable. Patient reports that he did have a bowel movement that did still appear dark but improved. Awaiting cardiology input for plan. GI services also consulted. At this time patient remains on clear liquid diet. Xarelto remains on hold. Patient denies any chest pain or shortness breath. Patient denies nausea vomiting or diarrhea. Patient denies any urinary burning or frequency On 01/17/2018 patient is alert and oriented 3 family at bedside. Hemoglobin 12.0. underwent EGD today capsule studyin progress. At this time patient denies chest pain or shortness breath. Patient denies vomiting or diarrhea. Patient denies any urinary burning or frequency. Objective - Vital Signs Vital signs: Vital Signs Temp 98.5 F 01/17/19 08:25 Pulse 68 01/17/19 08:25 Resp 16 01/17/19 08:25 BP 133/69 01/17/19 08:25 Pulse Ox 96 01/17/19 08:25 Intake & Output 01/16/19 01/17/19 01/17/19 18:59 06:59 18:59 Intake Total 1500 600 800 Balance 1500 600 800 Intake: IV 200 Intake, IV Titration 600 600 Amount Sodium Chloride 0.9% 1, 600 600 000 ml @ 75 mls/hr IV . [id number] [facility] Rx#:[id number] Oral 1500 Other: Voiding Method Toilet Toilet Toilet # Voids 3 1 2 # Bowel Movements 1 - Exam Head normocephalic Neck supple Lungs clear to auscultation bilaterally no wheezing or crackles Heart irregular rate and rhythm S1-S2, no rub or gallop Abdomen is soft nontender nondistended positive bowel sounds no hepatosplenomegaly Extremities no edema Neuro alert and orientated to 3 - Labs CBC & Chem 7: 01/17/19 07:09 01/17/19 07:09 Labs: Abnormal Lab Results - Last 24 Hours (Table) 01/16/19 01/16/19 01/17/19 Range/Units 17:11 20:11 07:08 RBC (4.30-5.90) m/uL Hgb (13.0-17.5) gm/dL Hct (39.0-53.0) % Creatinine (0.66-1.25) mg/dL Glucose (74-99) mg/dL POC Glucose (mg/dL) 133 H 112 H 132 H (75-99) mg/dL AST (17-59) U/L ALT (21-72) U/L Total Protein (6.3-8.2) g/dL 01/17/19 01/17/19 01/17/19 Range/Units 07:09 07:09 11:21 RBC 4.19 L (4.30-5.90) m/uL Hgb 12.0 L (13.0-17.5) gm/dL Hct 38.1 L (39.0-53.0) % Creatinine 1.40 H (0.66-1.25) mg/dL Glucose 127 H (74-99) mg/dL POC Glucose (mg/dL) 127 H (75-99) mg/dL AST 12 L (17-59) U/L ALT 20 L (21-72) U/L Total Protein 6.0 L (6.3-8.2) g/dL Assessment and Plan Assessment: 1. GI bleed with black tarry stools. Stool positive for occult blood. hemoGlobin currently 12.0. EKG showing mild gastritis antral body biopsy duodenal biopsy. Capsule study in progress 2. Chronic atrial fibrillation. Patient maintained on xarelto. currently on hold due to GI bleed. Awaiting cardiology input 3. Previous history of upper GI bleed in 2016 4. History of coronary artery disease with coronary artery bypass graft surgery 2005 with left heart cath and stenting in 2014 5. Planned atherectomy and INDUSTRIAL ENGINEER of the right common femoral artery for tomorrow per Dr. Gordon. Currently on hold. Cardiology services consulted 6. History of GERD 7. History of diabetes mellitus. Home meds resume sliding scale added 8. History of osteoarthritis 9. History of essential hypertension 10. History of gout 11. Chronic kidney disease stage III. Creatinine 1.48 and bun 28. This does appear baseline for patient. Patient was recently 2.0 with creatinine on 01/01/2019 we'll continue to monitor. DVT prophylaxis SCDs. GI prophylaxis Protonix I performed an examination of the patient and discussed their management with the Nurse Practitioner. I have reviewed the Nurse Practitioner's notes and agree with the documented findings and plan of care
[2019-01-17 17:06] LABS: Glucose,Whole Blood 140 mg/dL (75-99)
[2019-01-17 20:42] LABS: Glucose,Whole Blood 155 mg/dL (75-99)
[2019-01-17] MEDS: PRAVASTATIN SODIUM 80 MG TAB PO SCH (21:17)
[2019-01-18] MEDS: SODIUM CHLORIDE 0.9% 1,000 ML IV SCH (02:38)
[2019-01-18 03:13] VITALS: RESP 16
[2019-01-18 07:18] VITALS: BP 154/65; PULSE 77; TEMP 97.4
[2019-01-18 07:18] LABS: Glucose,Whole Blood 150 mg/dL (75-99)
[2019-01-18] MEDS: glipiZIDE 10 MG TAB PO SCH (07:25)
[2019-01-18] MEDS: INSULIN ASPART (NovoLOG) 100 UNIT/ML VIAL SQ SCH ×2 (07:26→11:45)
[2019-01-18 07:38] LABS: Basophils % (A) 0 %; Eosinophils # (A) 0.1 k/uL (0-0.7); Eosinophils % (A) 1 %; HCT 37.1 % (39.0-53.0); HGB 12.2 gm/dL (13.0-17.5); Lymphocytes # (A) 1.7 k/uL (1.0-4.8); Lymphocytes % (A) 18 %; MCH 29.1 pg (25.0-35.0); MCHC 32.9 g/dL (31.0-37.0); MCV 88.5 fL (80.0-100.0); Mean Platelet Volume 7.1; Monocytes # (A) 0.6 k/uL (0-1.0); Monocytes % (A) 7 %; Neutrophils # (A) 6.9 k/uL (1.3-7.7); Neutrophils % (A) 73 %; Platelet Count 198 k/uL (150-450); RBC 4.19 m/uL (4.30-5.90); RDW 14.9 % (11.5-15.5); WBC 9.5 k/uL (3.8-10.6)
[2019-01-18 08:06] LABS: Albumin 3.7 g/dL (3.5-5.0); Calcium 8.8 mg/dL (8.4-10.2); Potassium 4.3 mmol/L (3.5-5.1); Total Bilirubin 0.6 mg/dL (0.2-1.3); Total Protein 6.3 g/dL (6.3-8.2)
[2019-01-18] MEDS: PANTOPRAZOLE 40 MG/10 ML VIAL IV SCH (08:14)
[2019-01-18] MEDS: RANOLAZINE 500 MG TAB.ER.12H PO SCH (08:16)
[2019-01-18] MEDS: METOPROLOL SUCCINATE (ER) 100 MG TAB.ER.24H PO SCH (08:16)
[2019-01-18] MEDS: ALLOPURINOL 100 MG TAB PO SCH (08:16)
[2019-01-18] MEDS: LISINOPRIL 5 MG TAB PO SCH (08:16)
[2019-01-18] MEDS: MONTELUKAST 10 MG TAB PO SCH (08:16)
[2019-01-18] MEDS: FUROSEMIDE 20 MG TAB PO SCH (08:16)
--- NOTE | 2019-01-18 11:45 | P.PN ---
Subjective Progress Note Date: 01/18/19 Principal diagnosis: Anemia Hemoglobin 12.2. Small bowel capsule endoscopy completed no evidence of active bleeding or bleeding sources. EGD no evidence of peptic ulcer disease. Objective - Vital Signs Vital signs: Vital Signs Temp 97.4 F L 01/18/19 07:00 Pulse 77 01/18/19 07:00 Resp 16 01/18/19 08:05 BP 154/65 01/18/19 07:00 Pulse Ox 95 01/18/19 07:00 Intake & Output 01/17/19 01/18/19 01/18/19 18:59 06:59 18:59 Intake Total 800 1422 240 Balance 800 1422 240 Intake: IV 200 Intake, IV Titration 600 1200 Amount Sodium Chloride 0.9% 1, 600 1200 000 ml @ 75 mls/hr IV . [id number] [facility] Rx#:[id number] Oral 222 240 Other: Voiding Method Toilet Toilet # Voids 2 - Exam General appearance: The patient is alert, oriented, in no acute distress. HET: Head is normocephalic and atraumatic. Pupils are equal and reactive. Oropharynx is clear without lesions. Neck: Supple without lymphadenopathy. Trachea midline. Heart: S1 S2. Regular rate and rhythm. Lungs: No crackles or wheezes are heard. Abdomen: Soft, nontender, nondistended with bowel sounds. No peritoneal signs. No palpable organomegaly or masses. Extremities: Normal skin color and turgor. No cyanosis, rash, ulceration, clubbing, or edema. Radial and pedal pulses are 2/4 bilaterally. Neurological: No focal deficits. Strength and sensation are grossly intact. - Labs CBC & Chem 7: 01/18/19 07:13 01/18/19 07:13 Labs: Abnormal Lab Results - Last 24 Hours (Table) 01/17/19 01/17/19 01/17/19 Range/Units 11:21 17:05 20:41 RBC (4.30-5.90) m/uL Hgb (13.0-17.5) gm/dL Hct (39.0-53.0) % BUN (9-20) mg/dL Creatinine (0.66-1.25) mg/dL Glucose (74-99) mg/dL POC Glucose (mg/dL) 127 H 140 H 155 H (75-99) mg/dL AST (17-59) U/L 01/18/19 01/18/19 01/18/19 Range/Units 07:07 07:13 07:13 RBC 4.19 L (4.30-5.90) m/uL Hgb 12.2 L (13.0-17.5) gm/dL Hct 37.1 L (39.0-53.0) % BUN 22 H (9-20) mg/dL Creatinine 1.49 H (0.66-1.25) mg/dL Glucose 139 H (74-99) mg/dL POC Glucose (mg/dL) 150 H (75-99) mg/dL AST 12 L (17-59) U/L Assessment and Plan (1) GI bleed Narrative/Plan: 69-year-old gentleman with a history of peripheral vascular disease and atrial fibrillation maintained anticoagulation presents with 4 day history of black colored melanotic bowel movements on a daily basis. He has a history of symptomatic anemia melena 2 years ago status post EGD colonoscopy with findings of 2 superficial antral erosions no evidence of peptic ulcer disease and diffuse colonic diverticulosis. Status post EGD with no evidence of peptic ulcer disease rule out ALL endoscopy completed no evidence of active small bowel bleeding or bleeding sources. Current Visit: Yes Status: Acute Code(s): K92.2 - GASTROINTESTINAL HEMORRHAGE, UNSPECIFIED SNOMED Code(s): 42584332 Plan: 1. DC per medicine. May start anticoagulation. CBC monitoring the outpatient setting. Assessment and plan a care discussed with Dr. Campbell
[2019-01-18 11:49] LABS: Glucose,Whole Blood 113 mg/dL (75-99)
--- NOTE | 2019-01-18 13:06 | P.DS ---
Providers Date of admission: 01/16/19 11:22 Expected date of discharge: 01/18/19 Attending physician: Chichi Chen Consults: 01/15/19 13:39 Consult Physician Routine Consulting Provider: Ravi Campbell Consult Reason/Comments: GI bleed Do you want consulting provider notified?: Yes 01/15/19 14:59 Consult Physician Routine Consulting Provider: Nahid Porras Consult Reason/Comments: Scheduled procedure for 01/16/[address] Gordon. Current GI bleed Do you want consulting provider notified?: Yes Primary care physician: Kristel Hall Hospital Course: Discharge diagnosis 1. GI bleed with black tarry stools. Stool positive for occult blood. hemoGlobin currently 12.0. EKG showing mild gastritis antral body biopsy duodenal biopsy. Capsule study completed. Per GI services patient may be cleared for discharge. Restart anticoagulation continue monitoring CBC in outpatient setting 2. Chronic atrial fibrillation. Patient maintained on xarelto. currently on hold due to GI bleed. Awaiting cardiology input 3. Previous history of upper GI bleed in 2016 4. History of coronary artery disease with coronary artery bypass graft surgery 2005 with left heart cath and stenting in 2014 5. Planned atherectomy and OCCUPATIONAL MEDICINE SPECIALIST of the right common femoral artery for tomorrow per Dr. Gordon. Currently on hold. Cardiology services consulted 6. History of GERD 7. History of diabetes mellitus. Home meds resume sliding scale added 8. History of osteoarthritis 9. History of essential hypertension 10. History of gout 11. Chronic kidney disease stage III. Creatinine 1.48 and bun 28. This does appear baseline for patient. Patient was recently 2.0 with creatinine on 01/01/2019 we'll continue to monitor. Hospital course This is a 69-year-old patient of Dr. Hall who presented with complaints of GI bleed. Patient reports onset restarted noticing dark tarry stools. Patient is currently on xarelto for atrial fibrillation along with Plavix for previous stents in legs and heart. Patient denies any abdominal pain. Patient denies any nausea or vomiting. Patient does report occasional constipation. Patient reports last colonoscopy was present 2 years ago in which they found polyps and recommend 5 year follow-up. Patient denies any current alcohol use but per previous record patient does have history of EtOH abuse. Additional medical history includes atrial fibrillation, coronary artery disease, chest pain, diabetes mellitus, GERD, hyperlipidemia, hypertension, myocardial infarction, osteoarthritis, back pain, gout, coronary artery bypass graft surgery in 2006, heart sounds with S1 completed over 2 years ago and plans for balloon angiop lasty to right common femoral artery scheduled for tomorrow. Stool positive for occult blood. Hgb stable at 13.8. GI services will be consulted. At this time patient denies chest pain or shortness breath. Patient denies nausea vomiting or diarrhea. Patient denies any urinary burning or frequency. On 01/16/2019 patient is alert and oriented 3. Hemoglobin remained stable. Patient reports that he did have a bowel movement that did still appear dark but improved. Awaiting cardiology input for plan. GI services also consulted. At this time patient remains on clear liquid diet. Xarelto remains on hold. Patient denies any chest pain or shortness breath. Patient denies nausea vomiting or diarrhea. Patient denies any urinary burning or frequency On 01/17/2018 patient is alert and oriented 3 family at bedside. Hemoglobin 12.0. underwent EGD today capsule studyin progress. At this time patient denies chest pain or shortness breath. Patient denies vomiting or diarrhea. Patient denies any urinary burning or frequency. 01/18/2019 patient is alert and oriented 3. Patient has been tolerating regular diet. Patient did have bowel movement with no signs of blood. Capsule study an EGD completed by GI services. Patient has been cleared for discharge from GI standpoint. Hemoglobin stable at 12.2. Patient recently started back on anticoagulation per GI services. This time patient denies chest pain or shortness breath. Patient denies nausea vomiting or diarrhea. Patient denies any urinary burning or frequency. I performed an examination of the patient and discussed their management with the Nurse Practitioner. I have reviewed the Nurse Practitioner's notes and agree with the documented findings and plan of care Patient Condition at Discharge: Stable Plan - Discharge Summary Discharge Rx Participant: Yes New Discharge Prescriptions: No Action Allopurinol [Zyloprim] 100 mg PO DAILY glipiZIDE [Glucotrol] 20 mg PO AC-BRKFST [place]-3 Fatty Acids/Fish Oil [Fish Oil 1,000 mg Softgel] 1 cap PO BID Nitroglycerin Sl Tabs [Nitrostat] 0.4 mg SUBLINGUAL Q5M PRN PRN Reason: Chest Pain Omeprazole [PriLOSEC] 20 mg PO DAILY PRN PRN Reason: HEART BURN Cyanocobalamin [Vitamin B-12 Injection] 1,000 mcg IM Q30D Metoprolol Succinate (ER) [Toprol XL] 100 mg PO DAILY Magnesium Oxide [Mag-Ox] 400 mg PO DAILY Clopidogrel [Plavix] 75 mg PO DAILY #30 tab Montelukast [Singulair] 10 mg PO DAILY Empagliflozin/Linagliptin [Glyxambi 25 mg-5 mg Tablet] 1 tab PO DAILY Ranolazine [Ranexa] 500 mg PO BID Rivaroxaban [Xarelto] 7.5 mg PO DAILY Lisinopril [Zestril] 5 mg PO DAILY Furosemide [Lasix] 20 mg PO DAILY Pravastatin Sodium 80 mg PO HS Discharge Medication List Allopurinol [Zyloprim] 100 mg PO DAILY 03/16/15 [History] [place]-3 Fatty Acids/Fish Oil [Fish Oil 1,000 mg Softgel] 1 cap PO BID 03/16/15 [History] glipiZIDE [Glucotrol] 20 mg PO AC-BRKFST 03/16/15 [History] Nitroglycerin Sl Tabs [Nitrostat] 0.4 mg SUBLINGUAL Q5M PRN 05/12/16 [History] Omeprazole [PriLOSEC] 20 mg PO DAILY PRN 05/12/16 [History] Cyanocobalamin [Vitamin B-12 Injection] 1,000 mcg IM Q30D 05/26/16 [History] Magnesium Oxide [Mag-Ox] 400 mg PO DAILY 08/19/16 [History] Metoprolol Succinate (ER) [Toprol XL] 100 mg PO DAILY 08/19/16 [History] Clopidogrel [Plavix] 75 mg PO DAILY #30 tab 09/03/16 [Rx] Empagliflozin/Linagliptin [Glyxambi 25 mg-5 mg Tablet] 1 tab PO DAILY 08/31/17 [History] Montelukast [Singulair] 10 mg PO DAILY 08/31/17 [History] Ranolazine [Ranexa] 500 mg PO BID 08/31/17 [History] Rivaroxaban [Xarelto] 7.5 mg PO DAILY 01/11/19 [History] Furosemide [Lasix] 20 mg PO DAILY 01/15/19 [History] Lisinopril [Zestril] 5 mg PO DAILY 01/15/19 [History] Pravastatin Sodium 80 mg PO HS 01/15/19 [History] Follow up Appointment(s)/Referral(s): Kristel Hall MD [Primary Care Provider] - 1-2 days
== END 2019-01-18 14:00 | disposition home or self-care (01) | DRG 378 ==
LOC: EC 10:24 → 3NMEDONC 12:56 → 4SSUR 16:52 → OBSVTOIN 01-16 11:22
PROVIDERS: ADMIT Internal Medicine; ATTEND Internal Medicine
PROC: 0DB98ZX Excision of Duodenum, Via Natural or Artificial Opening Endoscopic, Diagnostic (ICD-10-PCS; principal; 2019-01-17 08:30)
PROC: 0DB78ZX Excision of Stomach, Pylorus, Via Natural or Artificial Opening Endoscopic, Diagnostic (ICD-10-PCS; principal; 2019-01-17 08:30)
DX: K29.71 Gastritis, unspecified, with bleeding (principal); I13.0 Hypertensive heart and chronic kidney disease with heart failure and stage 1 through stage 4 chronic kidney disease, or unspecified chronic kidney disease; E11.22 Type 2 diabetes mellitus with diabetic chronic kidney disease; E11.51 Type 2 diabetes mellitus with diabetic peripheral angiopathy without gangrene; E78.5 Hyperlipidemia, unspecified; I25.10 Atherosclerotic heart disease of native coronary artery without angina pectoris; I25.2 Old myocardial infarction; I48.2 Chronic atrial fibrillation; K21.9 Gastro-esophageal reflux disease without esophagitis; K59.00 Constipation, unspecified; N18.3 Chronic kidney disease, stage 3 (moderate); I50.9 Heart failure, unspecified; Z79.01 Long term (current) use of anticoagulants; Z79.02 Long term (current) use of antithrombotics/antiplatelets; Z79.84 Long term (current) use of oral hypoglycemic drugs; Z79.899 Other long term (current) drug therapy; Z82.49 Family history of ischemic heart disease and other diseases of the circulatory system; Z87.891 Personal history of nicotine dependence; Z95.1 Presence of aortocoronary bypass graft; Z95.5 Presence of coronary angioplasty implant and graft; Z88.2 Allergy status to sulfonamides
CPT/HCPCS: 36415; 43239; 80053; 82272; 83735; 84484; 85025; 85610; 85730; 86850; 86900; 86901; 88305; 91110; 93005; 96361; 96374; 99284

== ENCOUNTER 2019-02-05 07:45 | Day surgery (SDC) | payer MEDICARE ==
[2019-02-05] MEDS ORDERED: SODIUM CHLORIDE 0.9% 1,000 ML IV ONE (08:23)
[2019-02-05 08:30] LABS: Glucose,Whole Blood 176 mg/dL (75-99)
[2019-02-05] MEDS ORDERED: fentaNYL (PF) 50 MCG/ML 2 ML AMP IV ONE (11:46)
[2019-02-05] MEDS ORDERED: LIDOCAINE 1% INJ 10MG/ML (20 ML MDV) SQ ONE (11:46)
[2019-02-05] MEDS ORDERED: MIDAZOLAM (PF) 2 MG/2 ML VIAL IV ONE (11:46)
[2019-02-05] MEDS ORDERED: HEPARIN SODIUM 1,000 UN/ML (10ML VL) IV ONE (11:48)
[2019-02-05] MEDS ORDERED: IOPAMIDOL-250 100ML BTL INTRAARTER ONE ×2 (12:40)
[2019-02-05] MEDS ORDERED: PANTOPRAZOLE 40 MG TABLET PO PRN (12:47)
[2019-02-05] MEDS ORDERED: NITROGLYCERIN SL TABS 0.4 MG TAB SUBLINGUAL PRN (12:47)
[2019-02-05] MEDS ORDERED: SODIUM CHLORIDE 0.9% 1,000 ML IV SCH (13:00)
--- NOTE | 2019-02-05 13:23 | AN ---
ANGIOGRAPHY REPORT PERCUTANEOUS PERIPHERAL INTERVENTION: DATE OF SERVICE: February 05, 2019 PERFORMING PHYSICIAN: Nahid Porras MD, nude model. PROCEDURE PERFORMED: 1. Non-selective right [id number]-oiq-ruod angiogram. 2. Selective right SFA and right common femoral artery angiogram. 3. An atherectomy of the right SFA and right common femoral artery using the orbital atherectomy device from [employer]. 4. Successful balloon angioplasty of the right SFA using 6 mm drug-coated balloon with an excellent angiographic results and reduction of stenosis from 70% to 0%. 5. Successful balloon angioplasty of the right common femoral artery using 7 mm drug- coated balloon with an excellent angiographic results and reduction of stenosis from 80% to 0%. INDICATION: This is a pleasant 69-year-old gentleman who sees Dr. Hendricks in the office as an outpatient with history of peripheral arterial disease and prior peripheral angioplasty was experiencing right leg intermittent claudication symptoms in the right leg. He underwent a peripheral angiogram a few weeks ago and that revealed severe disease involving the right SFA and right common femoral artery and the SFA disease was in- stent restenosis. Because of that, he was brought today to undergo an intervention on the right SFA and right common femoral artery. COMPLICATION: None. LEVEL OF SEDATION: Moderate with sedation length of 1 hour. PROCEDURE DESCRIPTION: After obtaining an informed consent, the patient was brought to the microbiology laboratory manager. The left common femoral artery was cannulated using micropuncture technique and a micropuncture wire passed easily then I placed a 6-Wallisian sheath 11 cm in the left common femoral artery. After that, I did engage the right SFA using a 0.035 [place] Advantage wire with a 5-Wallisian Rim catheter. After that, I did exchange my short sheath into long sheath using 0.035 [place] Advantage wire. The long sheath was positioned in the right external iliac artery. After that I did non-selective right [id number]-[id number] angiogram with selective right SFA and right common femoral artery angiogram. I did after that gradient measurement across the right SFA and right common femoral artery and that came into significant 30 mmHg. At that point, I decided to pursue intervention of both the right SFA and right common femoral artery. I did place an 0.014 [employer]per[employer] and wire was advanced to the mid right SFA and did atherectomy using the orbital atherectomy device from [employer]. After that, I did balloon angioplasty using a Chocolate balloon at 6 mm. After that I did balloon angioplasty of the right SFA using 6 mm drug-coated balloon and then for right common femoral artery using 7 mm drug-coated balloon. The final angiogram showed excellent results and the procedure was completed without any complication. POSTPROCEDURE MANAGEMENT: 1. Dual antiplatelet therapy. 2. Risk factors modifications. 3. Follow up with the patient. CONY / CB: [id number] /
[2019-02-05 14:24] VITALS: RESP 16
--- NOTE | 2019-02-05 15:08 | LTR ---
DATE OF SERVICE: 02/05/2019 RE: Kevin Mcknight Dear Dr. Hall; Mr. Kevin Mcknight underwent successful balloon angioplasty of the right femoral artery with good angiographic results and without any complication. I want to thank you for allowing us to participate in his care and please do not hesitate to call if you have any question or concern. Sincerely, Nahid Porras MD [facility] / IRMAN: [id number] /
[2019-02-05] MEDS: ASPIRIN 325 MG TAB PO SCH (16:10)
[2019-02-05 17:29] VITALS: BMI 37.6
[2019-02-05] MEDS: RANOLAZINE 500 MG TAB.ER.12H PO SCH (20:32)
[2019-02-05 20:38] VITALS: TEMP 98.2
[2019-02-05] MEDS ORDERED: NON-FORMULARY DRUG (Omega-3 Fatty Acids/Fish Oil [Fish Oil 1,000 Mg Softgel] 1 CAP) PO SCH (21:00)
[2019-02-05] MEDS ORDERED: PRAVASTATIN SODIUM 80 MG TAB PO SCH (21:00)
[2019-02-06 03:29] VITALS: BP 151/78; PULSE 65
[2019-02-06 06:15] LABS: Glucose,Whole Blood 159 mg/dL (75-99)
[2019-02-06 07:00] LABS: Basophils % (A) 0 %; Eosinophils # (A) 0.2 k/uL (0-0.7); Eosinophils % (A) 2 %; HCT 41.8 % (39.0-53.0); HGB 13.3 gm/dL (13.0-17.5); Lymphocytes # (A) 2.5 k/uL (1.0-4.8); Lymphocytes % (A) 27 %; MCH 29.1 pg (25.0-35.0); MCHC 31.8 g/dL (31.0-37.0); MCV 91.4 fL (80.0-100.0); Mean Platelet Volume 6.6; Monocytes # (A) 0.4 k/uL (0-1.0); Monocytes % (A) 5 %; Neutrophils # (A) 5.8 k/uL (1.3-7.7); Neutrophils % (A) 64 %; Platelet Count 275 k/uL (150-450); RBC 4.57 m/uL (4.30-5.90); RDW 14.9 % (11.5-15.5); WBC 9.1 k/uL (3.8-10.6)
[2019-02-06 07:13] LABS: Calcium 9.2 mg/dL (8.4-10.2); Potassium 4.7 mmol/L (3.5-5.1)
[2019-02-06] MEDS ORDERED: glipiZIDE 10 MG TAB PO SCH (07:30)
[2019-02-06] MEDS: RANOLAZINE 500 MG TAB.ER.12H PO SCH (08:42)
[2019-02-06] MEDS: ASPIRIN 325 MG TAB PO SCH (08:46)
--- NOTE | 2019-02-06 08:55 | DS ---
DISCHARGE SUMMARY DATE OF ADMISSION: 02/05/2019 DATE OF DISCHARGE: 02/06/2019 BRIEF HISTORY: This is a pleasant 69-year-old gentleman who sees Dr. Hendricks in the office as an outpatient with a known history of peripheral arterial disease who underwent yesterday successful angioplasty of the right common femoral artery and right SFA with a good angiographic result and without any complication groin approach. The patient is going to be discharged home today on dual antiplatelet therapy and I will follow up with . MMODL / IJN: [id number] /
[2019-02-06] MEDS ORDERED: METOPROLOL SUCCINATE (ER) 100 MG TAB.ER.24H PO SCH (09:00)
[2019-02-06] MEDS ORDERED: CLOPIDOGREL 75 MG TAB PO SCH (09:00)
[2019-02-06] MEDS ORDERED: LINAGLIPTIN PO SCH (09:00)
[2019-02-06] MEDS ORDERED: MONTELUKAST 10 MG TAB PO SCH (09:00)
[2019-02-06] MEDS ORDERED: FUROSEMIDE 20 MG TAB PO SCH (09:00)
[2019-02-06] MEDS ORDERED: EMPAGLIFLOZIN PO SCH (09:00)
[2019-02-06] MEDS ORDERED: ALLOPURINOL 100 MG TAB PO SCH (09:00)
--- NOTE | 2019-02-06 11:48 | IR ---
EXAMINATION TYPE: IR inspector assembly iliac DATE OF EXAM: 02/05/2019 COMPARISON: NONE HISTORY: Fluoroscopy time. Fluoroscopy was provided to the referring clinician.
[2019-02-06] MEDS ORDERED: LISINOPRIL 5 MG TAB PO SCH (12:00)
[2019-02-06] MEDS ORDERED: MAGNESIUM OXIDE 400 MG TAB PO SCH (12:00)
[2019-02-27] MEDS ORDERED: CYANOCOBALAMIN 1,000 MCG/ML 1 ML VIAL IM SCH (09:00)
== END 2019-02-06 10:50 | disposition home or self-care (01) ==
LOC: CATHCVL 07:45 → 3SCARD 12:45 → CATHCVL 02-06 10:50
PROVIDERS: ATTEND Internal Medicine Interventional Cardiology
DX: I70.211 Atherosclerosis of native arteries of extremities with intermittent claudication, right leg (principal); T82.856A Stenosis of peripheral vascular stent, initial encounter; I10 Essential (primary) hypertension; E78.49 Other hyperlipidemia; E11.9 Type 2 diabetes mellitus without complications; I48.0 Paroxysmal atrial fibrillation; Z82.49 Family history of ischemic heart disease and other diseases of the circulatory system; Z72.0 Tobacco use; Z95.1 Presence of aortocoronary bypass graft; Z79.84 Long term (current) use of oral hypoglycemic drugs; Z79.02 Long term (current) use of antithrombotics/antiplatelets; Z79.899 Other long term (current) drug therapy; Z79.01 Long term (current) use of anticoagulants; Z88.2 Allergy status to sulfonamides
CPT/HCPCS: 37225; 85347; 80048; 85025; C1894 ×2; C1714; C1769 ×5; C1887; C2623; C1725; J2001; J3010; J1644; Q9966; J2250

== ENCOUNTER 2020-07-02 18:40 | Inpatient (IN) | payer MEDICARE ==
[2020-07-02] MEDS ORDERED: SODIUM CHLORIDE 0.9% 1,000 ML IV STA ×2 (19:12)
[2020-07-02] MEDS ORDERED: ACETAMINOPHEN TAB 500 MG TAB PO STA (19:14)
--- NOTE | 2020-07-02 19:22 | ED ---
SOB HPI - General Chief Complaint: Shortness of Breath Stated Complaint: SOB Time Seen by Provider: 07/02/20 18:59 Source: patient, RN notes reviewed, old records reviewed, Caregiver Mode of arrival: wheelchair Limitations: no limitations - History of Present Illness Initial Comments: This patient's a 70-year-old male who presents emergency department today with fatigue and shortness of breath for the past 3 days. He reports his nose has been more short of breath with exertion. He denies any acute chest pain at this time. He complains of lower leg aches as well. Patient has is extensive cardiac history including bypass surgery 2015. She denies any acute fevers or chills at home. He denies any significant cough. 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 Gordon. - Related Data Home Medications Medication Instructions Recorded Confirmed Allopurinol [Zyloprim] 100 mg PO DAILY 03/16/15 07/02/20 [place]-3 Fatty Acids/Fish Oil [Fish 1 cap PO BID 03/16/15 07/02/20 Oil 1,000 mg Softgel] Nitroglycerin Sl Tabs [Nitrostat] 0.4 mg SL Q5M PRN 05/12/16 07/02/20 Omeprazole [PriLOSEC] 20 mg PO BID PRN 05/12/16 07/02/20 Cyanocobalamin [Vitamin B-12 1,000 mcg IM Q30D 05/26/16 07/02/20 Injection] Magnesium Oxide [Mag-Ox] 400 mg PO DAILY@1200 08/19/16 07/02/20 Metoprolol Succinate (ER) [Toprol 100 mg PO DAILY 08/19/16 07/02/20 XL] Montelukast [Singulair] 10 mg PO DAILY 08/31/17 07/02/20 Ranolazine [Ranexa] 500 mg PO BID 08/31/17 07/02/20 Pravastatin Sodium 80 mg PO HS 01/15/19 07/02/20 Cbd Oil 1500mg 1,500 mg PO DAILY PRN 07/02/20 07/02/20 Empagliflozin [Jardiance] 25 mg PO DAILY 07/02/20 07/02/20 Furosemide [Lasix] 20 mg PO BID 07/02/20 07/02/20 Linagliptin [Tradjenta] 5 mg PO DAILY 07/02/20 07/02/20 Lisinopril [Zestril] 5 mg PO DAILY@1200 07/02/20 07/02/20 Repaglinide [Prandin] 0.5 mg PO AC-BID 07/02/20 07/02/20 Rivaroxaban [Xarelto] 7.5 mg PO DAILY 07/02/20 07/02/20 Verapamil [Isoptin] 40 mg PO BID 07/02/20 07/02/20 glipiZIDE XL [Glucotrol Xl] 20 mg PO AC-BRKFST 07/02/20 07/02/20 Previous Rx's Medication Instructions Recorded Clopidogrel [Plavix] 75 mg PO DAILY #30 tab 09/03/16 Allergies Allergy/AdvReac Type Severity Reaction Status Date / Time Sulfa (Sulfonamide Allergy Rash/Hives Verified 07/02/20 20:41 Antibiotics) sulfamethoxazole Allergy Rash/Hives Verified 07/02/20 20:41 [From Bactrim] trimethoprim [From Bactrim] Allergy Rash/Hives Verified 07/02/20 20:41 Review of Systems ROS Statement: Those systems with pertinent positive or pertinent negative responses have been documented in the HPI. ROS Other: All systems not noted in ROS Statement are negative. Past Medical History Past Medical History: Atrial Fibrillation, Coronary Artery Disease (CAD), Chest Pain / Angina, Heart Failure, Diabetes Mellitus, GERD/Reflux, GI Bleed, Hyperlipidemia, Hypertension, Myocardial Infarction (MD), Osteoarthritis (OA), Vascular Disorder Additional Past Medical History / Comment(s): BACKPAIN, Gout, Last Myocardial Infarction Date:: 09/2016 History of Any Multi-Drug Resistant Organisms: None Reported Past Surgical History: Coronary Bypass/CABG, Heart Catheterization With Stent, Orthopedic Surgery, Tonsillectomy Additional Past Surgical History / Comment(s): Rt foot surgery. CABG 2005- triple bypass. HEART STENT X2. fem-pop 08/31/16; PTBA W/ STENT TO LT SFA. PTBA RT SUPERFICIAL FEM ARTERY, PTBA RT COMMON FEM ARTERY AND STENTING LT ILIAC ARTERY". drainage of cyst on back 09/29/17, 02/05/2019-BALLOON ANGIOPLASTY TO (R) SFA, BALLOON ANGIOPLASTY TO (R) COMMON FEMORAL Past Anesthesia/Blood Transfusion Reactions: No Reported Reaction Date of Last Stent Placement:: AUG 2016 Past Psychological History: No Psychological Hx Reported Smoking Status: Former smoker Past Alcohol Use History: None Reported Past Drug Use History: None Reported - Past Family History Father Family Medical History: Myocardial Infarction (MD) Additional Family Medical History / Comment(s): Father at the age of 65 yrs from heart problems. Mother Family Medical History: Pulmonary Embolus General Exam - General Exam Comments Initial Comments: 70-year-old male. Alert and oriented. No distress. Limitations: no limitations General appearance: alert, in no apparent distress Head exam: Present: atraumatic, normocephalic, normal inspection Eye exam: Present: normal appearance, PERRL, EOMI. Absent: scleral icterus, conjunctival injection, periorbital swelling ENT exam: Present: normal exam, mucous membranes moist Neck exam: Present: normal inspection. Absent: tenderness, meningismus, lymphadenopathy Respiratory exam: Present: normal lung sounds bilaterally. Absent: respiratory distress, wheezes, rales, rhonchi, stridor Cardiovascular Exam: Present: regular rate, normal rhythm, normal heart sounds. Absent: systolic murmur, diastolic murmur, rubs, gallop, clicks GI/Abdominal exam: Present: soft, normal bowel sounds. Absent: distended, tenderness, guarding, rebound, rigid Rectal exam: Present: normal inspection, normal rectal tone, heme (+) stool Extremities exam: Present: normal inspection, full ROM, normal capillary refill. Absent: tenderness, pedal edema, joint swelling, calf tenderness Back exam: Present: normal inspection Neurological exam: Present: alert Psychiatric exam: Present: normal affect, normal mood Skin exam: Present: warm, dry, intact, normal color. Absent: rash Course Vital Signs 07/02/20 07/02/20 07/02/20 18:49 18:57 19:57 Temperature 99.7 F H Pulse Rate 65 Respiratory 18 18 Rate Blood Pressure 137/72 135/45 O2 Sat by Pulse 100 100 Oximetry Medical Decision Making - Medical Decision Making 70-year-old male presents emergency department today with complaints of shortness of breath and fatigue for the past 3 days. Patient has extensive cardiac history including bypass surgery in 2005. He is maintained on Plavix. At this time Patient is labs are reviewed. Lungs are clear to auscultation. Patient was noted to have hemoglobin of 9.6. This is a drop from 14 on his last previous hemoglobin. He does report on requestioning days had some darker stools for the past 2 weeks. Patient does have positive fecal occult. He has evidence of a IM and his kidney function with creatinine increased to 2.29 and BUN of 48. He also has mildly elevated troponin 0.039. I do believe the patient's symptoms are secondary to anemia and GI bleed. Patient started on Protonix. Patient case was discussed with Dr. Ibarra discussed the case with Dr. Chen. Patient will be admitted at this time for GI bleed with consult to cardiology. - Lab Data Result diagrams: 07/02/20 19:14 07/02/20 19:14 Lab Results 07/02/20 07/02/20 07/02/20 Range/Units 19:14 19:14 19:14 WBC 8.3 (3.8-10.6) k/uL RBC 3.12 L (4.30-5.90) m/uL Hgb 9.3 L (13.0-17.5) gm/dL Hct 29.5 L (39.0-53.0) % MCV 94.4 (80.0-100.0) fL MCH 29.9 (25.0-35.0) pg MCHC 31.7 (31.0-37.0) g/dL RDW 15.6 H (11.5-15.5) % Plt Count 263 (150-450) k/uL Neutrophils % 61 % Lymphocytes % 29 % Monocytes % 6 % Eosinophils % 1 % Basophils % 0 % Neutrophils # 5.1 (1.3-7.7) k/uL Lymphocytes # 2.4 (1.0-4.8) k/uL Monocytes # 0.5 (0-1.0) k/uL Eosinophils # 0.1 (0-0.7) k/uL Basophils # 0.0 (0-0.2) k/uL Hypochromasia Slight PT 10.1 (9.0-12.0) sec INR 1.0 (<1.2) APTT 23.4 (22.0-30.0) sec Sodium 135 L (137-145) mmol/L Potassium 5.0 (3.5-5.1) mmol/L Chloride 101 (98-107) mmol/L Carbon Dioxide 25 (22-30) mmol/L Anion Gap 9 mmol/L BUN 48 H (9-20) mg/dL Creatinine 2.29 H (0.66-1.25) mg/dL Est GFR (CKD-EPI)AfAm 32 (>60 ml/min/1.73 sqM) Est GFR (CKD-EPI)NonAf 28 (>60 ml/min/1.73 sqM) Glucose 173 H (74-99) mg/dL Plasma Lactic Acid Carson (0.7-2.0) mmol/L Calcium 8.7 (8.4-10.2) mg/dL Magnesium 2.4 H (1.6-2.3) mg/dL Total Bilirubin 0.3 (0.2-1.3) mg/dL AST 16 L (17-59) U/L ALT 15 (4-49) U/L Alkaline Phosphatase 79 (38-126) U/L Troponin I (0.000-0.034) ng/mL NT-Pro-B Natriuret Pep pg/mL Total Protein 6.8 (6.3-8.2) g/dL Albumin 4.1 (3.5-5.0) g/dL 07/02/20 07/02/20 07/02/20 Range/Units 19:14 19:14 19:14 WBC (3.8-10.6) k/uL RBC (4.30-5.90) m/uL Hgb (13.0-17.5) gm/dL Hct (39.0-53.0) % MCV (80.0-100.0) fL MCH (25.0-35.0) pg MCHC (31.0-37.0) g/dL RDW (11.5-15.5) % Plt Count (150-450) k/uL Neutrophils % % Lymphocytes % % Monocytes % % Eosinophils % % Basophils % % Neutrophils # (1.3-7.7) k/uL Lymphocytes # (1.0-4.8) k/uL Monocytes # (0-1.0) k/uL Eosinophils # (0-0.7) k/uL Basophils # (0-0.2) k/uL Hypochromasia PT (9.0-12.0) sec INR (<1.2) APTT (22.0-30.0) sec Sodium (137-145) mmol/L Potassium (3.5-5.1) mmol/L Chloride (98-107) mmol/L Carbon Dioxide (22-30) mmol/L Anion Gap mmol/L BUN (9-20) mg/dL Creatinine (0.66-1.25) mg/dL Est GFR (CKD-EPI)AfAm (>60 ml/min/1.73 sqM) Est GFR (CKD-EPI)NonAf (>60 ml/min/1.73 sqM) Glucose (74-99) mg/dL Plasma Lactic Acid Carson 1.2 (0.7-2.0) mmol/L Calcium (8.4-10.2) mg/dL Magnesium (1.6-2.3) mg/dL Total Bilirubin (0.2-1.3) mg/dL AST (17-59) U/L ALT (4-49) U/L Alkaline Phosphatase (38-126) U/L Troponin I 0.039 H* (0.000-0.034) ng/mL NT-Pro-B Natriuret Pep 1410 pg/mL Total Protein (6.3-8.2) g/dL Albumin (3.5-5.0) g/dL 07/02/20 19:22 EKG performed showed normal sinus rhythm nonspecific ventricular conduction delay. ST and T wave abnormality consider lateral ischemia. Abnormal EKG. Ve ntricularly of 82 bpm. Verbal is 172 ms. QS duration is 122 ms. QT QTc is 42/469 ms. - Radiology Data Radiology results: report reviewed Chest x-ray is negative for any acute cardio primary process. Disposition Clinical Impression: GI bleed, CAD (coronary artery disease), SUSIE (acute kidney injury) Disposition: ADMITTED IP TO THIS HOSP Condition: Stable Is patient prescribed a controlled substance at d/c from ED?: No Referrals: Kristel Hall MD [Primary Care Provider] - 1-2 days Time of Disposition: 20:59
[2020-07-02 19:26] LABS: Basophils % (A) 0 %; Eosinophils # (A) 0.1 k/uL (0-0.7); Eosinophils % (A) 1 %; HCT 29.5 % (39.0-53.0); HGB 9.3 gm/dL (13.0-17.5); Hypochromasia Slight; Lymphocytes # (A) 2.4 k/uL (1.0-4.8); Lymphocytes % (A) 29 %; MCH 29.9 pg (25.0-35.0); MCHC 31.7 g/dL (31.0-37.0); MCV 94.4 fL (80.0-100.0); Mean Platelet Volume 7.3; Monocytes # (A) 0.5 k/uL (0-1.0); Monocytes % (A) 6 %; Neutrophils # (A) 5.1 k/uL (1.3-7.7); Neutrophils % (A) 61 %; Platelet Count 263 k/uL (150-450); RBC 3.12 m/uL (4.30-5.90); RDW 15.6 % (11.5-15.5); WBC 8.3 k/uL (3.8-10.6)
[2020-07-02 19:33] LABS: Albumin 4.1 g/dL (3.5-5.0); Calcium 8.7 mg/dL (8.4-10.2); Magnesium 2.4 mg/dL (1.6-2.3); Partial Thromboplastin Time 23.4 sec (22.0-30.0); Prothrombin Time 10.1 sec (9.0-12.0); Total Bilirubin 0.3 mg/dL (0.2-1.3); Total Protein 6.8 g/dL (6.3-8.2)
--- NOTE | 2020-07-02 19:58 | XR ---
EXAMINATION: XR chest 2V DATE AND TIME: 07/02/2020 7:28 PM CLINICAL INDICATION: Cough, congestion, fatigue; difficulty breathing TECHNIQUE: Departmental protocol COMPARISON: 10/25/2016 FINDINGS: Sternal sutures and mediastinal clips noted. Coronary calcifications appreciated on the lat eral radiograph. The lungs appear unchanged when compared to the prior study, with scattered ill-defined nonspecific o pacities seen on both studies. There are no definite acute radiographic findings. The pleural spaces are negative. The cardiac silhouette is borderline enlarged. The remainder of the mediastinal silhouette is unremar kable. The skeletal structures and soft tissues are negative for acute findings. IMPRESSION: No definite acute radiographic process.
[2020-07-02] MEDS ORDERED: PANTOPRAZOLE 40 MG/10 ML VIAL IVP ONE (20:59)
[2020-07-02] MEDS ORDERED: ONDANSETRON 4 MG/2 ML VIAL IVP PRN (21:00)
[2020-07-02] MEDS ORDERED: NALOXONE 0.4 MG/ML 1 ML VIAL IV PRN (21:00)
[2020-07-02] MEDS ORDERED: NON FORMULARY DRUG (Omeprazole 20 MG Capsule.Dr) PO PRN (21:04)
[2020-07-02] MEDS ORDERED: CBD OIL PO PRN (21:04)
[2020-07-02] MEDS ORDERED: CYANOCOBALAMIN 1,000 MCG/ML 1 ML VIAL IM SCH (21:15)
[2020-07-02] MEDS: SODIUM CHLORIDE 0.9% 1,000 ML IV SCH (21:35)
[2020-07-02] MEDS: PANTOPRAZOLE 40 MG/10 ML VIAL IV SCH (21:38)
[2020-07-02 22:09] LABS: Appearance,Urine Clear (Clear); Bilirubin,Urine Negative (Negative); Blood,Urine Negative (Negative); Color,Urine Light Yellow; Glucose,Urine (UA) 4+ (Negative); Ketones,Urine Negative (Negative); Leukocyte Esterase,Urine Negative (Negative); Nitrite,Urine Negative (Negative); PH, Urine 5.5 (5.0-8.0); Protein,Urine Negative (Negative); Specific Gravity,Urine 1.012 (1.001-1.035); Urobilinogen,Urine <2.0 mg/dL (<2.0)
[2020-07-02 23:00] LABS: HCT 25.6 % (39.0-53.0); HGB 8.3 gm/dL (13.0-17.5); Hypochromasia Moderate; MCH 30.7 pg (25.0-35.0); MCHC 32.3 g/dL (31.0-37.0); MCV 94.9 fL (80.0-100.0); Mean Platelet Volume 8.8; Platelet Count 193 k/uL (150-450); RDW 15.4 % (11.5-15.5); WBC 6.9 k/uL (3.8-10.6)
[2020-07-03 02:19] LABS: HCT 26.5 % (39.0-53.0); HGB 8.2 gm/dL (13.0-17.5); Hypochromasia Moderate; MCH 29.4 pg (25.0-35.0); MCHC 30.8 g/dL (31.0-37.0); MCV 95.7 fL (80.0-100.0); Mean Platelet Volume 9.5; Platelet Count 180 k/uL (150-450); RBC 2.77 m/uL (4.30-5.90); RDW 15.5 % (11.5-15.5); WBC 7.2 k/uL (3.8-10.6)
[2020-07-03 09:20] LABS: HGB 8.3 gm/dL (13.0-17.5); Hypochromasia Moderate; MCH 30.9 pg (25.0-35.0); MCV 96.4 fL (80.0-100.0); Mean Platelet Volume 7.2; Platelet Count 207 k/uL (150-450); RDW 15.3 % (11.5-15.5); WBC 6.9 k/uL (3.8-10.6)
[2020-07-03] MEDS: SODIUM CHLORIDE 0.9% 1,000 ML IV SCH ×2 (10:20→15:05)
[2020-07-03] MEDS: REPAGLINIDE 1 MG TAB PO SCH ×2 (10:21→17:26)
[2020-07-03] MEDS: PANTOPRAZOLE 40 MG/10 ML VIAL IV SCH ×2 (10:21→21:13)
[2020-07-03] MEDS: VERAPAMIL 40 MG TAB PO SCH ×2 (10:21→21:13)
[2020-07-03] MEDS: FUROSEMIDE 40 MG TAB PO SCH ×2 (10:22→21:13)
[2020-07-03] MEDS: allopurinoL 100 MG TAB PO SCH (10:22)
[2020-07-03] MEDS: MAGNESIUM OXIDE 400 MG TAB PO SCH (10:22)
[2020-07-03] MEDS: glipiZIDE 10 MG TAB PO SCH ×2 (10:22→17:26)
[2020-07-03] MEDS: LINAGLIPTIN 5 MG TABLET PO SCH (10:22)
[2020-07-03] MEDS: METOPROLOL SUCCINATE (ER) 100 MG TAB.ER.24H PO SCH (10:23)
[2020-07-03] MEDS: MONTELUKAST 10 MG TAB PO SCH (10:23)
[2020-07-03 10:30] LABS: Glucose,Whole Blood 195 mg/dL (75-99)
--- NOTE | 2020-07-03 11:52 | CONS ---
CONSULTATION CHIEF COMPLAINT: Fatigue and shortness of breath. HISTORY OF PRESENT ILLNESS: Kevin is 70-year-old gentleman with a history of peripheral arterial disease status post angioplasty of the right superficial femoral artery, coronary artery disease status post coronary artery bypass grafting with VALLE to LAD, venous graft to OM and venous graft to PDA, dyslipidemia, hypertension, diabetes, chronic renal insufficiency, and paroxysmal atrial fibrillation who comes to the hospital complaining of fatigue and shortness of breath. Cardiology has been consulted because of his extensive cardiac history, abnormal EKG and mild troponin elevation. His troponins are at 0.03, 0.03 and 0.03. He is also anemic with a hemoglobin of 8.3. His baseline hemoglobin is around 14.3 and the patient has had anemia in the past secondary to GI bleed. His stool occult blood is positive. I believe his BUN and creatinine are elevated at 48 and 2.2. I believe his troponin is elevated secondary to renal insufficiency. The patient is not in congestive heart failure. He did not have any acute ischemic syndrome. PAST MEDICAL HISTORY: Significant for coronary artery disease status post CABG, paroxysmal atrial fibrillation, hypertension, diabetes. MEDICATIONS: At home include: Glucotrol 20, verapamil, Xarelto, Prandin, Ranexa, Prilosec, Toprol, Zestril, Lasix, Jardiance, Plavix, allopurinol. ALLERGIES: SULFA. FAMILY HISTORY: Negative for premature coronary artery disease. SOCIAL HISTORY: Is negative for smoking, EtOH abuse, or drug abuse. REVIEW OF SYSTEMS: HEENT is unremarkable. CARDIAC as described above. RESPIRATORY as described above. GI negative. GENITOURINARY negative. ALLERGY/IMMUNOLOGY: None. SKIN negative. ENDOCRINE: Negative. MUSCULOSKELETAL significant for arthritis. PSYCHOSOCIAL negative. ONCOLOGICAL: Significant for symptomatic anemia. Rest of the system review is not relevant. PHYSICAL EXAMINATION: On exam, patient is afebrile, heart rate is 70 beats per minute. Blood pressure is 140/72, respiratory rate is 18. O2 saturation is 100% on room air. NECK: There is no jugular venous distention. Carotid upstroke is normal. There is no bruit. CHEST exam reveals good air entry bilaterally. HEART exam reveals first and second heart sounds. An S4 is heard. ABDOMEN is soft. Exam of EXTREMITIES did not reveal any edema. Peripheral pulses are felt. [employer] exam did not reveal focal neurological deficits. LABORATORY DATA: Lab show a BUN of 48, creatinine of 2.2. Troponin is elevated. EKG shows ST-T wave changes suggestive of ischemia. ASSESSMENT AND PLAN: 1. Symptomatic anemia secondary to gastrointestinal blood loss. 2. History of paroxysmal atrial fibrillation. 3. Coronary artery disease status post coronary artery bypass grafting. 4. Renal insufficiency. PLAN: Troponin elevation is probably related to the renal failure. I will obtain a 2D echo to document his LV function and wall motion. Needs evaluation for the GI workup and he is stable to go through it from cardiac standpoint. Please hold the Xarelto, aspirin and Plavix at this time until we figure out what is going on with his GI blood loss. Thank you for giving me the privilege of participating in the care of this pleasant gentleman. MMRAIL / IRMAN: [id number] /
[2020-07-03 12:51] LABS: HCT 26.7 % (39.0-53.0); HGB 8.6 gm/dL (13.0-17.5); Hypochromasia Moderate; MCH 30.7 pg (25.0-35.0); MCHC 32.2 g/dL (31.0-37.0); MCV 95.2 fL (80.0-100.0); Mean Platelet Volume 7.6; Platelet Count 213 k/uL (150-450); RDW 15.3 % (11.5-15.5); WBC 8.4 k/uL (3.8-10.6)
[2020-07-03 13:50] LABS: Glucose,Whole Blood 136 mg/dL (75-99)
--- NOTE | 2020-07-03 14:36 | P.HPIM ---
History of Present Illness H&P Date: 07/03/20 Kevin Mcknight, is a 70-year-old male who presented to [facility] emergency room with a chief complaint of worsening shortness of breath and fatigue he was evaluated in emergency room he had evidence of anemia with hemoglobin down to 9 last hemoglobin was 14 stool Hemoccult was positive in addition patient had evidence of acute on chronic renal failure with worsening BUN and creatinine and evidence of elevated troponin level he was admitted to intensive care unit gastroenterology consultation and cardiology consultation were requested. On presentation to emergency room vital examination reveals a temperature of 99.7 pulse 65 respiration 18 blood pressure 137/72 pulse ox 100% on room air his white blood count was 8.3 hemoglobin 9.3 platelet count 263 BUN 48 creatinine 2. 29 glucose level 173 troponin level was 0.039. EKG revealing normal sinus rhythm with ST and T-wave abnormality suggestive of lateral ischemia, chest x- ray did not reveal any acute abnormality. Patient has a known history of coronary artery disease with history of coronary artery bypass graft surgery, his story of hypertension, history of hyperlipidemia, history of [id number] diabetes mellitus, history of chronic kidney disease and history of gout. Patient has a history of atrial fi brillation, he was maintained on Xarelto and Plavix prior to admission. On review of systems patient is alert and oriented 3 in no distress , he was complaining of fatigue and shortness of breath otherwise he denies any complaints there is no fever or chills no headache or dizziness no chest pain, no cough no nausea or vomiting no abdominal pain no diarrhea no blood in the stools, however when questioned patient stated that he has been having dark stool for the last 1-2 weeks no burning with urination no frequency or urgency and no hematuria. Past Medical History Past Medical History: Atrial Fibrillation, Coronary Artery Disease (CAD), Chest Pain / Angina, Heart Failure, Diabetes Mellitus, GERD/Reflux, GI Bleed, Hyperlipidemia, Hypertension, Myocardial Infarction (MO), Osteoarthritis (OA), Renal Disease, Vascular Disorder Additional Past Medical History / Comment(s): NIDDM type II, ckd-pt states doctor watches his renal functions, anemia-pt states told GI bleed but site never found, benign colon polyps, MO in 2017 d/t anemia, caratid artery disease, PAD, athritis in low back and bilateral hips, past gout R foot, gallstones. Last Myocardial Infarction Date:: 09/2016 History of Any Multi-Drug Resistant Organisms: None Reported Past Surgical History: Coronary Bypass/CABG, Heart Catheterization, Heart Catheterization With Stent, Orthopedic Surgery, Tonsillectomy Additional Past Surgical History / Comment(s): Multiple peripheral revascularization procedures/stents/arthrectomies/ballooning, multiple aortagrams with runoffs, JOIE, PCI with stent, 2005 CABG 3 vessel, EGD, colonoscopies/benign polypectomies, R foot gout, cyst on back drained Past Anesthesia/Blood Transfusion Reactions: No Reported Reaction Date of Last Stent Placement:: 2014 Smoking Status: Former smoker - Past Family History Father Family Medical History: Myocardial Infarction (MO) Additional Family Medical History / Comment(s): Father at the age of 65 yrs from heart problems. He had a MO in his 30s and had CABG Mother Family Medical History: Pulmonary Embolus Medications and Allergies Home Medications Medication Instructions Recorded Confirmed Type Allopurinol [Zyloprim] 100 mg PO DAILY 03/16/15 07/02/20 History [place]-3 Fatty Acids/Fish Oil [Fish 1 cap PO BID 03/16/15 07/02/20 History Oil 1,000 mg Softgel] Nitroglycerin Sl Tabs [Nitrostat] 0.4 mg SL Q5M PRN 05/12/16 07/02/20 History Omeprazole [PriLOSEC] 20 mg PO BID PRN 05/12/16 07/02/20 History Cyanocobalamin [Vitamin B-12 1,000 mcg IM Q30D 05/26/16 07/02/20 History Injection] Magnesium Oxide [Mag-Ox] 400 mg PO DAILY@1200 08/19/16 07/02/20 History Metoprolol Succinate (ER) [Toprol 100 mg PO DAILY 08/19/16 07/02/20 History XL] Clopidogrel [Plavix] 75 mg PO DAILY #30 tab 09/03/16 07/02/20 Rx Montelukast [Singulair] 10 mg PO DAILY 08/31/17 07/02/20 History Ranolazine [Ranexa] 500 mg PO BID 08/31/17 07/02/20 History Pravastatin Sodium 80 mg PO HS 01/15/19 07/02/20 History Cbd Oil 1500mg 1,500 mg PO DAILY PRN 07/02/20 07/02/20 History Empagliflozin [Jardiance] 25 mg PO DAILY 07/02/20 07/02/20 History Furosemide [Lasix] 20 mg PO BID 07/02/20 07/02/20 History Linagliptin [Tradjenta] 5 mg PO DAILY 07/02/20 07/02/20 History Lisinopril [Zestril] 5 mg PO DAILY@1200 07/02/20 07/02/20 History Repaglinide [Prandin] 0.5 mg PO AC-BID 07/02/20 07/02/20 History Rivaroxaban [Xarelto] 7.5 mg PO DAILY 07/02/20 07/02/20 History Verapamil [Isoptin] 40 mg PO BID 07/02/20 07/02/20 History glipiZIDE XL [Glucotrol Xl] 20 mg PO AC-BRKFST 07/02/20 07/02/20 History Allergies Allergy/AdvReac Type Severity Reaction Status Date / Time Sulfa (Sulfonamide Allergy Rash/Hives Verified 07/02/20 20:41 Antibiotics) sulfamethoxazole Allergy Rash/Hives Verified 07/02/20 20:41 [From Bactrim] trimethoprim [From Bactrim] Allergy Rash/Hives Verified 07/02/20 20:41 Physical Exam Vitals: Vital Signs Temp Pulse Pulse Resp BP BP Pulse Ox 07/03/20 11:54 98.3 F 62 20 124/48 98 07/03/20 08:00 98.1 F 72 18 144/71 100 07/03/20 06:54 59 L 16 108/53 100 07/03/20 06:00 59 L 16 92/41 97 07/03/20 05:00 68 18 99/42 99 07/03/20 04:00 98.4 F 60 18 105/42 98 07/03/20 03:00 60 20 93/48 100 07/03/20 02:00 70 18 132/55 97 07/03/20 01:00 57 L 18 142/65 100 07/03/20 00:00 65 20 139/54 99 07/02/20 21:51 98.8 F 07/02/20 19:57 135/45 100 07/02/20 18:57 18 07/02/20 18:49 99.7 F H 65 18 137/72 100 Intake and Output 07/02/20 07/03/20 07/03/20 22:59 06:59 14:59 Other: Weight 113.398 kg 113.398 kg In general patient is alert and oriented 3 in no distress HEENT head normocephalic and atraumatic Neck is supple no JVD no goiter no lymphadenopathy Chest exam reveals a few scattered crackles no wheezing Cardiac exam reveals regular heart sounds no murmurs Abdomen is soft nontender no organomegaly with normal bowel sounds Extremity exam reveals no edema no cyanosis or clubbing Neurological examination reveals no gross focal deficit Results CBC & Chem 7: 07/03/20 12:32 07/02/20 19:14 Labs: Abnormal Lab Results - Last 24 Hours (Table) 07/02/20 07/02/20 07/02/20 Range/Units 19:14 19:14 19:14 RBC 3.12 L (4.30-5.90) m/uL Hgb 9.3 L (13.0-17.5) gm/dL Hct 29.5 L (39.0-53.0) % MCHC (31.0-37.0) g/dL RDW 15.6 H (11.5-15.5) % Sodium 135 L (137-145) mmol/L BUN 48 H (9-20) mg/dL Creatinine 2.29 H (0.66-1.25) mg/dL Glucose 173 H (74-99) mg/dL POC Glucose (mg/dL) (75-99) mg/dL Magnesium 2.4 H (1.6-2.3) mg/dL AST 16 L (17-59) U/L Troponin I 0.039 H* (0.000-0.034) ng/mL Urine Glucose (UA) (Negative) 07/02/20 07/02/20 07/02/20 Range/Units 20:15 22:47 22:47 RBC 2.70 L (4.30-5.90) m/uL Hgb 8.3 L (13.0-17.5) gm/dL Hct 25.6 L (39.0-53.0) % MCHC (31.0-37.0) g/dL RDW (11.5-15.5) % Sodium (137-145) mmol/L BUN (9-20) mg/dL Creatinine (0.66-1.25) mg/dL Glucose (74-99) mg/dL POC Glucose (mg/dL) (75-99) mg/dL Magnesium (1.6-2.3) mg/dL AST (17-59) U/L Troponin I 0.037 H* (0.000-0.034) ng/mL Urine Glucose (UA) 4+ H (Negative) 07/03/20 07/03/20 07/03/20 Range/Units 02:12 02:12 08:49 RBC 2.77 L 2.70 L (4.30-5.90) m/uL Hgb 8.2 L 8.3 L (13.0-17.5) gm/dL Hct 26.5 L 26.0 L (39.0-53.0) % MCHC 30.8 L (31.0-37.0) g/dL RDW (11.5-15.5) % Sodium (137-145) mmol/L BUN (9-20) mg/dL Creatinine (0.66-1.25) mg/dL Glucose (74-99) mg/dL POC Glucose (mg/dL) (75-99) mg/dL Magnesium (1.6-2.3) mg/dL AST (17-59) U/L Troponin I 0.037 H* (0.000-0.034) ng/mL Urine Glucose (UA) (Negative) 07/03/20 07/03/20 07/03/20 Range/Units 10:28 12:32 13:47 RBC 2.80 L (4.30-5.90) m/uL Hgb 8.6 L (13.0-17.5) gm/dL Hct 26.7 L (39.0-53.0) % MCHC (31.0-37.0) g/dL RDW (11.5-15.5) % Sodium (137-145) mmol/L BUN (9-20) mg/dL Creatinine (0.66-1.25) mg/dL Glucose (74-99) mg/dL POC Glucose (mg/dL) 195 H 136 H (75-99) mg/dL Magnesium (1.6-2.3) mg/dL AST (17-59) U/L Troponin I (0.000-0.034) ng/mL Urine Glucose (UA) (Negative) Thrombosis Risk Factor Assmnt - Choose All That Apply Any of the Below Risk Factors Present?: Yes Each Factor Represents 1 point: Obesity (BMI >25) Other Risk Factors: Yes Each Risk Factor Represents 2 Points: Age 61-74 years Other congenital or acquired thrombophilia - If yes, enter type in comment: No Thrombosis Risk Factor Assessment Total Risk Factor Score: 3 Thrombosis Risk Factor Assessment Level: Moderate Risk Assessment and Plan Plan: 1. Fatigue and shortness of breath 2. Anemia with positive stool Hemoccult 3. Acute on chronic renal failure creatinine on presentation to 0.29 creatinine in January 2019 was 1.41 4. Elevated troponin level on presentation, patient denies chest pain 5. Underlying history of coronary artery disease 6. Underlying history of diabetes mellitus At this time patient is admitted to intensive care unit Xarelto and Plavix are on hold Cardiology and gastroenterology consultation were requested For DVT prophylaxis SCD stockings For GI prophylaxis IV Protonix Will follow closely
[2020-07-03] MEDS: lisinopriL 10 MG TAB PO SCH (14:52)
[2020-07-03 15:05] LABS: Albumin 3.4 g/dL (3.5-5.0); Calcium 8.2 mg/dL (8.4-10.2); Total Bilirubin 0.3 mg/dL (0.2-1.3); Total Protein 5.9 g/dL (6.3-8.2)
[2020-07-03 17:12] LABS: Glucose,Whole Blood 110 mg/dL (75-99)
[2020-07-03] MEDS: INSULIN ASPART (NovoLOG) 100 UNIT/ML VIAL SQ SCH ×2 (17:33→23:55)
--- NOTE | 2020-07-03 18:18 | ECHOF ---
Referral Reason:positive troponin; dyspnea MEASUREMENTS -------- HEIGHT: 172.7 cm WEIGHT: 81.6 kg BP: RVIDd: 3.6 cm (< 3.3) IVSd: 1.1 cm (0.6 - 1.1) LVIDd: 5.0 cm (3.9 - 5.3) LVPWd: 1.6 cm (0.6 - 1.1) IVSs: 1.6 cm LVIDs: 3.9 cm LVPWs: 1.4 cm LA Diam: 4.8 cm (2.7 - 3.8) LAESV Index (A-L): 51.85 ml/m Ao Diam: 3.1 cm (2.0 - 3.7) AV Cusp: 2.1 cm (1.5 - 2.6) LA Diam: 4.5 cm (2.7 - 3.8) MV E Sidney: 1.32 m/s MV DecT: 121 ms MV A Sidney: 0.56 m/s MV E/A Ratio: 2.37 RAP: 5.00 mmHg RVSP: 54.05 mmHg FINDINGS -------- Sinus rhythm. This was a techncally difficult study with suboptimal views, , Lumason utilized for enhancement of im ages. The left ventricular size is normal. There is mild concentric left ventricular hypertrophy. Overa ll left ventricular systolic function is mild-moderately impaired with, an EF between 40 - 45 %. Ba letty inferior LV wall motion is hypokinetic. Basal inferoseptal LV wall motion is hypokinetic. The right ventricle is normal in size. The left atrium is markedly dilated. LA is severely dilated >40 ml/m2 5.0mg OF Lumason UTLIZED: 2 OR MORE WALL SEGMENTS NOT VISUALIZED. There is mild aortic valve sclerosis. There is no evidence of aortic regurgitation. Moderate mitral regurgitation is present. Mild tricuspid regurgitation present. There is moderate pulmonary hypertension. The pulmonic valve was not well visualized. The aortic root size is normal. There is no pericardial effusion. CONCLUSIONS -------- 1. This was a techncally difficult study with suboptimal views, , Lumason utilized for enhancement of images. 2. The left ventricular size is normal. 3. There is mild concentric left ventricular hypertrophy. 4. Overall left ventricular systolic function is mild-moderately impaired with, an EF between 40 - 45 %. 5. Basal inferior LV wall motion is hypokinetic. 6. Basal inferoseptal LV wall motion is hypokinetic. 7. The right ventricle is normal in size. 8. The left atrium is markedly dilated. 9. LA is severely dilated >40 ml/m2 10. 5.0mg OF Lumason UTLIZED: 2 OR MORE WALL SEGMENTS NOT VISUALIZED. 11. There is mild aortic valve sclerosis. 12. Moderate mitral regurgitation is present. 13. Mild tricuspid regurgitation present. 14. There is moderate pulmonary hypertension. 15. The pulmonic valve was not well visualized. 16. The aortic root size is normal. 17. There is no pericardial effusion. MEDICAL TECHNOLOGIST CHIEF: Nayla Kaba RDCS
[2020-07-03 19:53] LABS: HCT 26.1 % (39.0-53.0); HGB 8.1 gm/dL (13.0-17.5); Hypochromasia Moderate; MCH 30.1 pg (25.0-35.0); MCV 97.1 fL (80.0-100.0); Mean Platelet Volume 7.1; Platelet Count 216 k/uL (150-450); RBC 2.69 m/uL (4.30-5.90); RDW 15.4 % (11.5-15.5); WBC 7.3 k/uL (3.8-10.6)
[2020-07-03] MEDS: PRAVASTATIN SODIUM 80 MG TAB PO SCH (21:13)
[2020-07-03 23:56] LABS: Glucose,Whole Blood 126 mg/dL (75-99)
[2020-07-04 00:28] LABS: HCT 26.8 % (39.0-53.0); HGB 8.5 gm/dL (13.0-17.5); Hypochromasia Moderate; MCHC 31.6 g/dL (31.0-37.0); MCV 94.7 fL (80.0-100.0); Mean Platelet Volume 7.4; Platelet Count 210 k/uL (150-450); RBC 2.83 m/uL (4.30-5.90); RDW 15.1 % (11.5-15.5); WBC 8.3 k/uL (3.8-10.6)
[2020-07-04 06:20] LABS: Glucose,Whole Blood 145 mg/dL (75-99)
[2020-07-04] MEDS: INSULIN ASPART (NovoLOG) 100 UNIT/ML VIAL SQ SCH ×3 (06:21→18:03)
[2020-07-04] MEDS: REPAGLINIDE 1 MG TAB PO SCH ×2 (06:22→18:02)
[2020-07-04] MEDS: glipiZIDE 10 MG TAB PO SCH ×2 (06:22→16:56)
[2020-07-04] MEDS: SODIUM CHLORIDE 0.9% 1,000 ML IV SCH ×2 (06:23→20:15)
[2020-07-04 08:38] LABS: Albumin 3.3 g/dL (3.5-5.0); Calcium 8.3 mg/dL (8.4-10.2); Total Bilirubin 0.5 mg/dL (0.2-1.3); Total Protein 5.8 g/dL (6.3-8.2)
--- NOTE | 2020-07-04 10:23 | P.CONS ---
History of Present Illness - Reason for Consult Consult date: 07/03/20 Anemia, GI bleed Requesting physician: Chichi Chen - Chief Complaint Weakness, anemia - History of Present Illness 70-year-old male with multiple medical comorbidities including coronary artery disease, peripheral arterial disease, atrial fibrillation, diabetes mellitus, GERD, hypertension, hyperlipidemia, and prior hospitalizations for GI bleed who presented to the hospital due to weakness and shortness of breath. The patient is on both Xarelto and Plavix therapy. Stool testing on presentation was positive for occult blood, hemoglobin 8.2 with an INR of 1.0, total bilirubin 0.3, alkaline phosphatase 79, AST 16 and ALT 15. The patient had been feeling increasingly short of breath. On questioning he reports one week of dark stool but feels that they have actually lightened up over the past few days and are back to normal color. He does have a history of acid reflux but denies any history of peptic ulcer disease. He underwent endoscopy in 10/2016 with co lonoscopy for anemia significant for diverticulosis and polypectomy. Repeat study with EGD in 12/2018 for anemia showed only mild gastritis and this was followed with a small bowel capsule endoscopy in 12/2018 which showed no bleeding at the distal small bowel was incompletely visualized. Currently the patient is denying any abdominal pain. Review of Systems REVIEW OF SYSTEMS: CONSTITUTIONAL: Denies any fevers, chills, weight change. Patient does report some fatigue. CARDIOVASCULAR: Denies any chest pain, palpitations high or low blood pressures RESPIRATORY: Denies any hemoptysis or cough, but does report some shortness of breath. GENITOURINARY: No dysuria or hematuria. MUSCULOSKELETAL: No focal weakness reported. SKIN: Denies any new rashes or lesions, jaundice or pallor. PSYCHIATRIC: Denies any depression or anxiety. NEUROLOGY: Denies headache, denies any new focal deficits. EARS/NOSE/THROAT: No recent hearing change, congestion, nasal discharge or sore throat. EYES: No pain in eyes, discharge or change in vision. GASTROINTESTINAL: As per HPI. Past Medical History Past Medical History: Atrial Fibrillation, Coronary Artery Disease (CAD), Chest Pain / Angina, Heart Failure, Diabetes Mellitus, GERD/Reflux, GI Bleed, Hyperlipidemia, Hypertension, Myocardial Infarction (TN), Osteoarthritis (OA), Renal Disease, Vascular Disorder Additional Past Medical History / Comment(s): NIDDM type II, ckd-pt states doctor watches his renal functions, anemia-pt states told GI bleed but site never found, benign colon polyps, TN in 2017 d/t anemia, caratid artery disease, PAD, athritis in low back and bilateral hips, past gout R foot, gallstones. Last Myocardial Infarction Date:: 09/2016 History of Any Multi-Drug Resistant Organisms: None Reported Past Surgical History: Coronary Bypass/CABG, Heart Catheterization, Heart Catheterization With Stent, Orthopedic Surgery, Tonsillectomy Additional Past Surgical History / Comment(s): Multiple peripheral rev ascularization procedures/stents/arthrectomies/ballooning, multiple aortagrams with runoffs, JOIE, PCI with stent, 2005 CABG 3 vessel, EGD, colonoscopies/benign polypectomies, R foot gout, cyst on back drained Past Anesthesia/Blood Transfusion Reactions: No Reported Reaction Date of Last Stent Placement:: 2014 Smoking Status: Former smoker - Past Family History Father Family Medical History: Myocardial Infarction (TN) Additional Family Medical History / Comment(s): Father at the age of 65 yrs from heart problems. He had a TN in his 30s and had CABG Mother Family Medical History: Pulmonary Embolus Medications and Allergies Home Medications Medication Instructions Recorded Confirmed Type Allopurinol [Zyloprim] 100 mg PO DAILY 03/16/15 07/02/20 History Valley-3 Fatty Acids/Fish Oil [Fish 1 cap PO BID 03/16/15 07/02/20 History Oil 1,000 mg Softgel] Nitroglycerin Sl Tabs [Nitrostat] 0.4 mg SL Q5M PRN 05/12/16 07/02/20 History Omeprazole [PriLOSEC] 20 mg PO BID PRN 05/12/16 07/02/20 History Cyanocobalamin [Vitamin B-12 1,000 mcg IM Q30D 05/26/16 07/02/20 History Injection] Magnesium Oxide [Mag-Ox] 400 mg PO DAILY@1200 08/19/16 07/02/20 History Metoprolol Succinate (ER) [Toprol 100 mg PO DAILY 08/19/16 07/02/20 History XL] Clopidogrel [Plavix] 75 mg PO DAILY #30 tab 09/03/16 07/02/20 Rx Montelukast [Singulair] 10 mg PO DAILY 08/31/17 07/02/20 History Ranolazine [Ranexa] 500 mg PO BID 08/31/17 07/02/20 History Pravastatin Sodium 80 mg PO HS 01/15/19 07/02/20 History Cbd Oil 1500mg 1,500 mg PO DAILY PRN 07/02/20 07/02/20 History Empagliflozin [Jardiance] 25 mg PO DAILY 07/02/20 07/02/20 History Furosemide [Lasix] 20 mg PO BID 07/02/20 07/02/20 History Linagliptin [Tradjenta] 5 mg PO DAILY 07/02/20 07/02/20 History Lisinopril [Zestril] 5 mg PO DAILY@1200 07/02/20 07/02/20 History Repaglinide [Prandin] 0.5 mg PO AC-BID 07/02/20 07/02/20 History Rivaroxaban [Xarelto] 7.5 mg PO DAILY 07/02/20 07/02/20 History Verapamil [Isoptin] 40 mg PO BID 07/02/20 07/02/20 History glipiZIDE XL [Glucotrol Xl] 20 mg PO AC-BRKFST 07/02/20 07/02/20 History Allergies Allergy/AdvReac Type Severity Reaction Status Date / Time Sulfa (Sulfonamide Allergy Rash/Hives Verified 07/02/20 20:41 Antibiotics) sulfamethoxazole Allergy Rash/Hives Verified 07/02/20 20:41 [From Bactrim] trimethoprim [From Bactrim] Allergy Rash/Hives Verified 07/02/20 20:41 Physical Exam Vitals: Vital Signs Temp Pulse Pulse Resp BP BP Pulse Ox 07/03/20 15:38 80 18 138/58 95 07/03/20 14:30 98.7 F 71 18 159/74 96 07/03/20 11:54 98.3 F 62 20 124/48 98 07/03/20 08:00 98.1 F 72 18 144/71 100 07/03/20 06:54 59 L 16 108/53 100 07/03/20 06:00 59 L 16 92/41 97 07/03/20 05:00 68 18 99/42 99 07/03/20 04:00 98.4 F 60 18 105/42 98 11/06/20 03:00 60 20 93/48 100 07/03/20 02:00 70 18 132/55 97 07/03/20 01:00 57 L 18 142/65 100 07/03/20 00:00 65 20 139/54 99 07/02/20 21:51 98.8 F 07/02/20 19:57 135/45 100 07/02/20 18:57 18 07/02/20 18:49 99.7 F H 65 18 137/72 100 Intake and Output 07/03/20 07/03/20 07/03/20 06:59 14:59 22:59 Other: Voiding Method Urinal Weight 113.398 kg On physical examination, patient appears comfortable in no apparent distress. HEAD: Normocephalic, atraumatic. EYES: No scleral icterus. No conjunctival injection. MOUTH: No lesions, tongue midline. NECK: Trachea midline, no gross abnormalities. CHEST: Clear to auscultation with no wheezing or rhonchi appreciated. HEART: S1-S2 appreciated. ABDOMEN: Soft, obese, nontender. Bowel sounds are positive. No organomegaly. No guarding or rigidity. EXTREMITIES: No pedal edema. SKIN: No rashes, no jaundice. NEUROLOGIC: Alert and oriented x3. No focal deficits. Results CBC & Chem 7: 07/04/20 00:13 07/04/20 07:22 Labs: Abnormal Lab Results - Last 24 Hours (Table) 07/02/20 07/02/20 07/02/20 Range/Units 19:14 19:14 19:14 RBC 3.12 L (4.30-5.90) m/uL Hgb 9.3 L (13.0-17.5) gm/dL Hct 29.5 L (39.0-53.0) % MCHC (31.0-37.0) g/dL RDW 15.6 H (11.5-15.5) % Sodium 135 L (137-145) mmol/L BUN 48 H (9-20) mg/dL Creatinine 2.29 H (0.66-1.25) mg/dL Glucose 173 H (74-99) mg/dL POC Glucose (mg/dL) (75-99) mg/dL Calcium (8.4-10.2) mg/dL Magnesium 2.4 H (1.6-2.3) mg/dL AST 16 L (17-59) U/L Troponin I 0.039 H* (0.000-0.034) ng/mL Total Protein (6.3-8.2) g/dL Albumin (3.5-5.0) g/dL Urine Glucose (UA) (Negative) 07/02/20 07/02/20 07/02/20 Range/Units 20:15 22:47 22:47 RBC 2.70 L (4.30-5.90) m/uL Hgb 8.3 L (13.0-17.5) gm/dL Hct 25.6 L (39.0-53.0) % MCHC (31.0-37.0) g/dL RDW (11.5-15.5) % Sodium (137-145) mmol/L BUN (9-20) mg/dL Creatinine (0.66-1.25) mg/dL Glucose (74-99) mg/dL POC Glucose (mg/dL) (75-99) mg/dL Calcium (8.4-10.2) mg/dL Magnesium (1.6-2.3) mg/dL AST (17-59) U/L Troponin I 0.037 H* (0.000-0.034) ng/mL Total Protein (6.3-8.2) g/dL Albumin (3.5-5.0) g/dL Urine Glucose (UA) 4+ H (Negative) 07/03/20 07/03/20 07/03/20 Range/Units 02:12 02:12 08:49 RBC 2.77 L 2.70 L (4.30-5.90) m/uL Hgb 8.2 L 8.3 L (13.0-17.5) gm/dL Hct 26.5 L 26.0 L (39.0-53.0) % MCHC 30.8 L (31.0-37.0) g/dL RDW (11.5-15.5) % Sodium (137-145) mmol/L BUN (9-20) mg/dL Creatinine (0.66-1.25) mg/dL Glucose (74-99) mg/dL POC Glucose (mg/dL) (75-99) mg/dL Calcium (8.4-10.2) mg/dL Magnesium (1.6-2.3) mg/dL AST (17-59) U/L Troponin I 0.037 H* (0.000-0.034) ng/mL Total Protein (6.3-8.2) g/dL Albumin (3.5-5.0) g/dL Urine Glucose (UA) (Negative) 07/03/20 07/03/20 07/03/20 Range/Units 08:49 10:28 12:32 RBC 2.80 L (4.30-5.90) m/uL Hgb 8.6 L (13.0-17.5) gm/dL Hct 26.7 L (39.0-53.0) % MCHC (31.0-37.0) g/dL RDW (11.5-15.5) % Sodium 134 L (137-145) mmol/L BUN 36 H (9-20) mg/dL Creatinine 1.86 H (0.66-1.25) mg/dL Glucose 215 H (74-99) mg/dL POC Glucose (mg/dL) 195 H (75-99) mg/dL Calcium 8.2 L (8.4-10.2) mg/dL Magnesium (1.6-2.3) mg/dL AST 15 L (17-59) U/L Troponin I (0.000-0.034) ng/mL Total Protein 5.9 L (6.3-8.2) g/dL Albumin 3.4 L (3.5-5.0) g/dL Urine Glucose (UA) (Negative) 07/03/20 Range/Units 13:47 RBC (4.30-5.90) m/uL Hgb (13.0-17.5) gm/dL Hct (39.0-53.0) % MCHC (31.0-37.0) g/dL RDW (11.5-15.5) % Sodium (137-145) mmol/L BUN (9-20) mg/dL Creatinine (0.66-1.25) mg/dL Glucose (74-99) mg/dL POC Glucose (mg/dL) 136 H (75-99) mg/dL Calcium (8.4-10.2) mg/dL Magnesium (1.6-2.3) mg/dL AST (17-59) U/L Troponin I (0.000-0.034) ng/mL Total Protein (6.3-8.2) g/dL Albumin (3.5-5.0) g/dL Urine Glucose (UA) (Negative) Chest x-ray: report reviewed (No acute finding on x-ray of the chest) Assessment and Plan (1) GI bleed Narrative/Plan: 70-year-old male with multiple medical comorbidities on both anticoagulation and antiplatelet therapy who presented to the hospital due to complaints of shortness of breath and weakness. Patient has previously been seen for anemia and concern for GI bleed with colonoscopy in 10/2016 significant for diverticulosis and polypectomy, EGD in 12/2018 significant for mild gastritis and subsequent small bowel capsule endoscopy in 12/2018 with no active bleeding noted but incomplete visualization of the distal small bowel and no pathology to explain anemia. The patient did report dark colored bowel movements on current presentation. Suspicion is for small bowel bleed, with plan for endoscopy to rule out peptic ulcer disease, AVM, Dieulafoy lesion or other etiology. Symptoms currently improving with a normal hemoglobin and no further dark bowel movements over the past few days. Current Visit: Yes Status: Acute Code(s): K92.2 - GASTROINTESTINAL HEMORRHAGE, UNSPECIFIED SNOMED Code(s): 93309067 (2) Acute blood loss anemia Current Visit: No Status: Acute Code(s): D62 - ACUTE POSTHEMORRHAGIC ANEMIA SNOMED Code(s): 695786234 Plan: Supportive care Clear liquid diet Continue to monitor hemoglobin and hematocrit and transfuse as needed Hold anticoagulation and antiplatelet therapy for now Protonix twice a day Nothing by mouth after midnight Plan for EGD tomorrow for further evaluation Thank you for allowing us to participate in the care of the patient
[2020-07-04] MEDS ORDERED: MIDAZOLAM 2 MG/2 ML VIAL ONE (10:40)
[2020-07-04] MEDS ORDERED: LIDOCAINE 1% INJ 10MG/ML (20 ML MDV) ONE (10:40)
[2020-07-04] MEDS ORDERED: fentaNYL (PF) 50 MCG/ML 2 ML AMP ONE (10:40)
[2020-07-04] MEDS ORDERED: PROPOFOL 10 MG/ML 20 ML VIAL IV ONE (10:40)
[2020-07-04] MEDS ORDERED: IV FLUID CONTINUATION 1,000 ML IV ONE ×2 (10:42)
--- NOTE | 2020-07-04 11:08 | P.PCN ---
Date of Procedure: 07/04/20 Description of Procedure: BRIEF HISTORY: 70-year-old male with multiple medical comorbidities including coronary artery disease, peripheral arterial disease, atrial fibrillation, diabetes mellitus, GERD, hypertension, hyperlipidemia, and prior hospitalizations for GI bleed who presented to the hospital due to weakness and shortness of breath. The patient is on both Xarelto and Plavix therapy. Stool testing on presentation was positive for occult blood, hemoglobin 8.2 with an INR of 1.0, total bilirubin 0.3, alkaline phosphatase 79, AST 16 and ALT 15. The patient had been feeling increasingly short of breath. On questioning he reports one week of dark stool but feels that they have actually lightened up over the past few days and are back to normal color. He does have a history of acid reflux but denies any history of peptic ulcer disease. He underwent endoscopy in 10/2016 with col onoscopy for anemia significant for diverticulosis and polypectomy. Repeat study with EGD in 12/2018 for anemia showed only mild gastritis and this was followed with a small bowel capsule endoscopy in 12/2018 which showed no bleeding at the distal small bowel was incompletely visualized. Currently the patient is denying any abdominal pain. PROCEDURE PERFORMED: Esophagogastroduodenoscopy. PREOPERATIVE DIAGNOSIS: Melena, anemia of acute blood loss. ESTIMATED BLOOD LOSS: Minimal. IV sedation per anesthesia. PROCEDURE: After informed consent was obtained, the patient was brought into the endoscopy unit. IV sedation was administered by Anesthesia under continuous monitoring. Initially the Olympus GIF-190 video endoscope was inserted into the mouth. Esophagus intubated without any difficulty. It was gradually advanced into the stomach and duodenum and carefully examined. The bulb and the second part of the duodenum appeared normal. The scope at this time was withdrawn to the stomach, adequately insufflated with air, and upon careful examination, mucosa of the antrum, body, cardia and the fundus appeared normal, except for some mild punctate erythema in the antrum and body suggestive of mild gastritis. The scope was then withdrawn into the esophagus. The GE junction was located at 39 cm from the incisors. The esophagus appeared normal. There were no erosions or ulceratio ns seen and the patient tolerated the procedure well. IMPRESSION: 1. No active bleeding, old blood or pathology to explain anemia was noted. 2. Mild gastritis. RECOMMENDATIONS: The findings of this examination were discussed with the patient . Okay to resume diet. Okay to resume medications including antiplatelet and anticoagulation therapy. Continue to monitor for signs or symptoms of GI bleeding, continue to monitor hemoglobin and hematocrit.
[2020-07-04] MEDS: allopurinoL 100 MG TAB PO SCH (11:38)
[2020-07-04] MEDS: MONTELUKAST 10 MG TAB PO SCH (11:38)
[2020-07-04] MEDS: METOPROLOL SUCCINATE (ER) 100 MG TAB.ER.24H PO SCH (11:38)
[2020-07-04] MEDS: PANTOPRAZOLE 40 MG/10 ML VIAL IV SCH ×2 (11:38→21:38)
[2020-07-04] MEDS: VERAPAMIL 40 MG TAB PO SCH ×2 (11:38→21:37)
[2020-07-04] MEDS: FUROSEMIDE 40 MG TAB PO SCH ×2 (11:38→21:37)
[2020-07-04] MEDS: LINAGLIPTIN 5 MG TABLET PO SCH (11:39)
[2020-07-04 11:55] LABS: Glucose,Whole Blood 165 mg/dL (75-99)
[2020-07-04] MEDS: MAGNESIUM OXIDE 400 MG TAB PO SCH (12:02)
[2020-07-04] MEDS: lisinopriL 10 MG TAB PO SCH (12:02)
--- NOTE | 2020-07-04 12:28 | P.PN ---
Subjective Progress Note Date: 07/04/20 Kevin Mcknight, is a 70-year-old male who presented to [facility] emergency room with a chief complaint of worsening shortness of breath and fatigue he was evaluated in emergency room he had evidence of anemia with hemoglobin down to 9 last hemoglobin was 14 stool Hemoccult was positive in addition patient had evidence of acute on chronic renal failure with worsening BUN and creatinine and evidence of elevated troponin level he was admitted to intensive care unit gastroenterology consultation and cardiology consultation were requested. On presentation to emergency room vital examination reveals a temperature of 99.7 pulse 65 respiration 18 blood pressure 137/72 pulse ox 100% on room air his white blood count was 8.3 hemoglobin 9.3 platelet count 263 BUN 48 creatinine 2.29 glucose level 173 troponin level was 0.039. EKG revealing normal sinus rhythm with ST and T-wave abnormality suggestive of lateral ischemia, chest x- ray did not reveal any acute abnormality. Patient has a known history of coronary artery disease with history of coronary artery bypass graft surgery, his story of hypertension, history of hyperlipidemia, history of [id number] diabetes mellitus, history of chronic kidney disease and history of gout. Patient has a history of atrial fibrillation, he was maintained on Xarelto and Plavix prior to admission. On review of systems patient is alert and oriented 3 in no distress , he was complaining of fatigue and shortness of breath otherwise he denies any complaints there is no fever or chills no headache or dizziness no chest pain, no cough no nausea or vomiting no abdominal pain no diarrhea no blood in the stools, however when questioned patient stated that he has been having dark stool for the last 1-2 weeks no burning with urination no frequency or urgency and no hematuria. On 07/04/2020 patient was seen and examined on the medical floor he is alert and oriented 3 in no apparent distress. No fever or chills no headache or di zziness no chest pain shortness of breath has improved there is no cough no palpitation no nausea or vomiting no abdominal pain no diarrhea no burning with urination no frequency or urgency no hematuria. Patient underwent EGD today, eighth revealed no active bleeding patient had evidence of mild gastritis, at this point will resume diet will review medications including antiplatelet and anticoagulation, will monitor his tomorrow. Objective - Vital Signs Vital signs: Vital Signs Temp 98.4 F 07/04/20 04:00 Pulse 74 07/04/20 04:00 Resp 17 07/04/20 04:00 BP 120/56 07/04/20 04:00 Pulse Ox 95 07/04/20 04:00 Intake & Output 07/03/20 07/03/20 07/04/20 06:59 18:59 06:59 Intake Total 500 500 Output Total 1550 750 Balance -1050 -250 Weight 113.398 kg Intake: IV 200 Sodium Chloride 0.9% 1, 200 000 ml @ 100 mls/hr IV . Q10H CHERELLE Rx#:[id number] Intake, IV Titration 400 300 Amount Sodium Chloride 0.9% 1, 400 300 000 ml @ 100 mls/hr IV . Q10H CHERELLE Rx#:[id number] Oral 100 Output: Urine 1550 750 Other: Voiding Method Urinal Toilet # Voids 1 - Exam In general patient is alert and oriented 3 in no distress HEENT head normocephalic and atraumatic Neck is supple no JVD no goiter no lymphadenopathy Chest exam reveals a few scattered crackles no wheezing Cardiac exam reveals regular heart sounds no murmurs Abdomen is soft nontender no organomegaly with normal bowel sounds Extremity exam reveals no edema no cyanosis or clubbing Neurological examination reveals no gross focal deficit - Labs CBC & Chem 7: 07/04/20 00:13 07/04/20 07:22 Labs: Abnormal Lab Results - Last 24 Hours (Table) 07/03/20 07/03/20 07/03/20 Range/Units 08:49 08:49 10:28 RBC 2.70 L (4.30-5.90) m/uL Hgb 8.3 L (13.0-17.5) gm/dL Hct 26.0 L (39.0-53.0) % Sodium 134 L (137-145) mmol/L BUN 36 H (9-20) mg/dL Creatinine 1.86 H (0.66-1.25) mg/dL Glucose 215 H (74-99) mg/dL POC Glucose (mg/dL) 195 H (75-99) mg/dL Calcium 8.2 L (8.4-10.2) mg/dL AST 15 L (17-59) U/L Total Protein 5.9 L (6.3-8.2) g/dL Albumin 3.4 L (3.5-5.0) g/dL 07/03/20 07/03/20 07/03/20 Range/Units 12:32 13:47 17:10 RBC 2.80 L (4.30-5.90) m/uL Hgb 8.6 L (13.0-17.5) gm/dL Hct 26.7 L (39.0-53.0) % Sodium (137-145) mmol/L BUN (9-20) mg/dL Creatinine (0.66-1.25) mg/dL Glucose (74-99) mg/dL POC Glucose (mg/dL) 136 H 110 H (75-99) mg/dL Calcium (8.4-10.2) mg/dL AST (17-59) U/L Total Protein (6.3-8.2) g/dL Albumin (3.5-5.0) g/dL 07/03/20 07/03/20 07/04/20 Range/Units 19:19 23:53 00:13 RBC 2.69 L 2.83 L (4.30-5.90) m/uL Hgb 8.1 L 8.5 L (13.0-17.5) gm/dL Hct 26.1 L 26.8 L (39.0-53.0) % Sodium (137-145) mmol/L BUN (9-20) mg/dL Creatinine (0.66-1.25) mg/dL Glucose (74-99) mg/dL POC Glucose (mg/dL) 126 H (75-99) mg/dL Calcium (8.4-10.2) mg/dL AST (17-59) U/L Total Protein (6.3-8.2) g/dL Albumin (3.5-5.0) g/dL Microbiology - Last 24 Hours (Table) 07/02/20 19:21 Blood Culture - Preliminary Blood No Growth after 24 hours Assessment and Plan Plan: 1. Fatigue and shortness of breath, likely related to anemia 2. Anemia with positive stool Hemoccult 3. Acute on chronic renal failure creatinine on presentation to 0.29 creatinine in January 2019 was 1.41 4. Elevated troponin level on presentation, patient denies chest pain 5. Underlying history of coronary artery disease 6. Underlying history of diabetes mellitus At this time patient is admitted to intensive care unit Xarelto and Plavix are on hold Cardiology and gastroenterology consultation were requested For DVT prophylaxis SCD stockings For GI prophylaxis IV Protonix Will follow closely
--- NOTE | 2020-07-04 12:58 | P.PN ---
Subjective Progress Note Date: 07/04/20 History of present illness: This is a 70-year-old male with past medical history of peripheral a rtery disease status post angioplasty of the right superficial femoral artery, coronary artery disease status post CABG with VALLE to LAD, venous graft to OM and venous graft to PDA, dyslipidemia, hypertension, diabetes mellitus type 2, chronic renal disease, paroxysmal atrial fibrillation. Patient presented to the hospital due to fatigue and shortness of breath. He had mild troponin elevation and abnormal EKG. He was found to be anemic with hemoglobin of 8.3 and normal is at 14.3. He does have history of GI bleed in the past. Stool for occult blood was positive. He is scheduled for EGD today. He denies having any bowel movements today. His Xarelto and Plavix are currently on hold. Echocardiogram reveals EF of 40-45%, LA severely dilated, mild aortic valve sclerosis, moderate mitral regurgitation, mild tricuspid regurgitation, moderate pulmonary hypertension. Physical examination: Gen: This is a 70-year-old male. He is resting bed appears to be comfortable and in no acute distress. VS: Afebrile, heart rate 69, blood pressure 116/58, pulse ox 97% on room air. HEENT: Head is atraumatic, normocephalic. Pupils equal, round. Sclerae is anicteric. NECK: Supple. No JVD. No lymphadenopathy. No thyromegaly. LUNGS: Clear to auscultation. No wheezes or rhonchi. No intercostal retractions. HEART: Regular rate and rhythm. No murmur. ABDOMEN: Soft. Bowel sounds are present. No masses. No tenderness. EXTREMITIES: No pedal edema. No calf tenderness. Dorsalis pedis +2 bilaterally. NEUROLOGICAL: Patient is awake, alert and oriented x3. No focal neuro deficits. Assessment: Acute GI bleed Paroxysmal atrial fibrillation History of coronary artery disease with coronary artery bypass grafting Troponin elevation secondary to renal failure Acute kidney injury with chronic kidney disease stage III Plan: Patient is scheduled for EGD today Continue to hold Xarelto and Plavix Further recommendations to follow based upon clinical course Thank you kindly for this consultation. Nurse practitioner note has been reviewed, I agree with documented findings and plan of care. Patient was seen and examined. Objective - Vital Signs Vital signs: Vital Signs Temp 98.0 F 07/04/20 08:54 Pulse 69 07/04/20 08:54 Resp 16 07/04/20 08:54 BP 116/58 07/04/20 08:54 Pulse Ox 97 07/04/20 08:54 Intake & Output 07/03/20 07/04/20 07/04/20 18:59 06:59 18:59 Intake Total 500 900 0 Output Total 1550 750 Balance -1050 150 0 Weight 113.398 kg 114.5 kg Intake: IV 200 Sodium Chloride 0.9% 1, 200 000 ml @ 100 mls/hr IV . Q10H [facility]ERELLE Rx#:[id number] Intake, IV Titration 400 700 Amount Sodium Chloride 0.9% 1, 400 700 000 ml @ 100 mls/hr IV . Q10H [facility]LE Rx#:[id number] Oral 100 0 0 Output: Urine 1550 750 Other: Voiding Method Urinal Toilet Toilet # Voids 1 - Labs CBC & Chem 7: 07/04/20 00:13 07/04/20 07:22 Labs: Abnormal Lab Results - Last 24 Hours (Table) 07/03/20 07/03/20 07/03/20 Range/Units 08:49 10:28 12:32 RBC 2.80 L (4.30-5.90) m/uL Hgb 8.6 L (13.0-17.5) gm/dL Hct 26.7 L (39.0-53.0) % Sodium 134 L (137-145) mmol/L BUN 36 H (9-20) mg/dL Creatinine 1.86 H (0.66-1.25) mg/dL Glucose 215 H (74-99) mg/dL POC Glucose (mg/dL) 195 H (75-99) mg/dL Calcium 8.2 L (8.4-10.2) mg/dL AST 15 L (17-59) U/L Total Protein 5.9 L (6.3-8.2) g/dL Albumin 3.4 L (3.5-5.0) g/dL 07/03/20 07/03/20 07/03/20 Range/Units 13:47 17:10 19:19 RBC 2.69 L (4.30-5.90) m/uL Hgb 8.1 L (13.0-17.5) gm/dL Hct 26.1 L (39.0-53.0) % Sodium (137-145) mmol/L BUN (9-20) mg/dL Creatinine (0.66-1.25) mg/dL Glucose (74-99) mg/dL POC Glucose (mg/dL) 136 H 110 H (75-99) mg/dL Calcium (8.4-10.2) mg/dL AST (17-59) U/L Total Protein (6.3-8.2) g/dL Albumin (3.5-5.0) g/dL 07/03/20 07/04/20 07/04/20 Range/Units 23:53 00:13 06:18 RBC 2.83 L (4.30-5.90) m/uL Hgb 8.5 L (13.0-17.5) gm/dL Hct 26.8 L (39.0-53.0) % Sodium (137-145) mmol/L BUN (9-20) mg/dL Creatinine (0.66-1.25) mg/dL Glucose (74-99) mg/dL POC Glucose (mg/dL) 126 H 145 H (75-99) mg/dL Calcium (8.4-10.2) mg/dL AST (17-59) U/L Total Protein (6.3-8.2) g/dL Albumin (3.5-5.0) g/dL 07/04/20 Range/Units 07:22 RBC (4.30-5.90) m/uL Hgb (13.0-17.5) gm/dL Hct (39.0-53.0) % Sodium (137-145) mmol/L BUN 27 H (9-20) mg/dL Creatinine 1.70 H (0.66-1.25) mg/dL Glucose 143 H (74-99) mg/dL POC Glucose (mg/dL) (75-99) mg/dL Calcium 8.3 L (8.4-10.2) mg/dL AST 16 L (17-59) U/L Total Protein 5.8 L (6.3-8.2) g/dL Albumin 3.3 L (3.5-5.0) g/dL Microbiology - Last 24 Hours (Table) 07/02/20 19:21 Blood Culture - Preliminary Blood No Growth after 24 hours
[2020-07-04] MEDS: RIVAROXABAN 15 MG TAB PO SCH (16:56)
[2020-07-04 17:54] LABS: Glucose,Whole Blood 212 mg/dL (75-99)
[2020-07-04] MEDS: PRAVASTATIN SODIUM 80 MG TAB PO SCH (21:38)
[2020-07-05 00:16] LABS: Glucose,Whole Blood 138 mg/dL (75-99)
[2020-07-05] MEDS: INSULIN ASPART (NovoLOG) 100 UNIT/ML VIAL SQ SCH ×4 (00:46→17:13)
[2020-07-05] MEDS: SODIUM CHLORIDE 0.9% 1,000 ML IV SCH ×4 (00:46→21:19)
[2020-07-05 06:06] LABS: Glucose,Whole Blood 165 mg/dL (75-99)
[2020-07-05] MEDS: glipiZIDE 10 MG TAB PO SCH ×2 (06:50→16:31)
[2020-07-05] MEDS: REPAGLINIDE 1 MG TAB PO SCH ×2 (06:50→16:31)
[2020-07-05] MEDS: LINAGLIPTIN 5 MG TABLET PO SCH (08:14)
[2020-07-05] MEDS: FUROSEMIDE 40 MG TAB PO SCH ×2 (08:14→21:17)
[2020-07-05] MEDS: MONTELUKAST 10 MG TAB PO SCH (08:14)
[2020-07-05] MEDS: PANTOPRAZOLE 40 MG/10 ML VIAL IV SCH (08:14)
[2020-07-05] MEDS: VERAPAMIL 40 MG TAB PO SCH ×2 (08:14→21:17)
[2020-07-05] MEDS: allopurinoL 100 MG TAB PO SCH (08:14)
[2020-07-05] MEDS: METOPROLOL SUCCINATE (ER) 100 MG TAB.ER.24H PO SCH (08:14)
[2020-07-05] MEDS: CLOPIDOGREL 75 MG TAB PO SCH (08:14)
[2020-07-05 08:26] LABS: Albumin 3.4 g/dL (3.5-5.0); Calcium 8.3 mg/dL (8.4-10.2); Potassium 4.6 mmol/L (3.5-5.1); Total Bilirubin 0.4 mg/dL (0.2-1.3); Total Protein 5.8 g/dL (6.3-8.2)
[2020-07-05 09:53] LABS: Basophils % (A) 1 %; Eosinophils # (A) 0.2 k/uL (0-0.7); Eosinophils % (A) 2 %; HCT 25.9 % (39.0-53.0); HGB 8.1 gm/dL (13.0-17.5); Hypochromasia Moderate; Lymphocytes # (A) 1.7 k/uL (1.0-4.8); Lymphocytes % (A) 23 %; MCH 29.9 pg (25.0-35.0); MCHC 31.2 g/dL (31.0-37.0); Mean Platelet Volume 7.4; Monocytes # (A) 0.4 k/uL (0-1.0); Monocytes % (A) 6 %; Neutrophils # (A) 4.7 k/uL (1.3-7.7); Neutrophils % (A) 66 %; Platelet Count 203 k/uL (150-450); RDW 15.1 % (11.5-15.5); WBC 7.1 k/uL (3.8-10.6)
--- NOTE | 2020-07-05 10:39 | P.PN ---
Subjective Progress Note Date: 07/05/20 History of present illness: This is a 70-year-old male with past medical history of peripheral a rtery disease status post angioplasty of the right superficial femoral artery, coronary artery disease status post CABG with VALLE to LAD, venous graft to OM and venous graft to PDA, dyslipidemia, hypertension, diabetes mellitus type 2, chronic renal disease, paroxysmal atrial fibrillation. Patient presented to the hospital due to fatigue and shortness of breath. He had mild troponin elevation and abnormal EKG. He was found to be anemic with hemoglobin of 8.3 and normal is at 14.3. He does have history of GI bleed in the past. Stool for occult blood was positive. He is scheduled for EGD today. He denies having any bowel movements today. His Xarelto and Plavix are currently on hold. Echocardiogram reveals EF of 40-45%, LA severely dilated, mild aortic valve sclerosis, moderate mitral regurgitation, mild tricuspid regurgitation, moderate pulmonary hypertension. 07/05: underwent EGD yesterday that showed gastritis. He has been resumed on Plavix and Xarelto. He denies having any chest pain. He states he is belching quite a bit and occasionally has left arm discomfort. Plan today is to increase activity and he does not develop any chest pain or other symptoms, he is cleared for discharge home. Physical examination: Gen: This is a 70-year-old male. He is resting bed appears to be comfortable and in no acute distress. VS: Afebrile, heart rate 107, blood pressure 115/50, pulse ox 98% on room air. HEENT: Head is atraumatic, normocephalic. Pupils equal, round. Sclerae is anicteric. NECK: Supple. No JVD. No lymphadenopathy. No thyromegaly. LUNGS: Clear to auscultation. No wheezes or rhonchi. No intercostal retractions. HEART: Regular rate and rhythm. No murmur. ABDOMEN: Soft. Bowel sounds are present. No masses. No tenderness. EXTREMITIES: No pedal edema. No calf tenderness. Dorsalis pedis +2 bilaterally. NEUROLOGICAL: Patient is awake, alert and oriented x3. No focal neuro deficits. Assessment: Acute GI bleed Paroxysmal atrial fibrillation History of coronary artery disease with coronary artery bypass grafting Troponin elevation secondary to renal failure Acute kidney injury with chronic kidney disease stage III Plan: Status post EGD Xarelto and Plavix have been resumed Patient is cleared for discharge from cardiology Follow up with Dr. Porras in 1-2 weeks Thank you kindly for this consultation. Nurse practitioner note has been reviewed, I agree with documented findings and plan of care. Patient was seen and examined. Objective - Vital Signs Vital signs: Vital Signs Temp 98.7 F 07/05/20 08:12 Pulse 107 H 07/05/20 08:12 Resp 20 07/05/20 08:12 BP 115/50 07/05/20 08:12 Pulse Ox 98 07/05/20 08:12 Intake & Output 07/04/20 07/05/20 07/05/20 18:59 06:59 18:59 Intake Total 780 500 200 Output Total 0 Balance 780 500 200 Weight 115.5 kg Intake: IV 100 Oral 680 500 200 Output: Urine 0 Other: Voiding Method Toilet Toilet # Voids 2 0 # Bowel Movements 1 - Labs CBC & Chem 7: 07/05/20 07:39 07/05/20 07:39 Labs: Abnormal Lab Results - Last 24 Hours (Table) 07/04/20 07/04/20 07/05/20 Range/Units 11:54 17:53 00:07 Sodium (137-145) mmol/L BUN (9-20) mg/dL Creatinine (0.66-1.25) mg/dL Glucose (74-99) mg/dL POC Glucose (mg/dL) 165 H 212 H 138 H (75-99) mg/dL Calcium (8.4-10.2) mg/dL Total Protein (6.3-8.2) g/dL Albumin (3.5-5.0) g/dL 07/05/20 07/05/20 Range/Units 06:03 07:39 Sodium 135 L (137-145) mmol/L BUN 29 H (9-20) mg/dL Creatinine 1.83 H (0.66-1.25) mg/dL Glucose 211 H (74-99) mg/dL POC Glucose (mg/dL) 165 H (75-99) mg/dL Calcium 8.3 L (8.4-10.2) mg/dL Total Protein 5.8 L (6.3-8.2) g/dL Albumin 3.4 L (3.5-5.0) g/dL Microbiology - Last 24 Hours (Table) 07/02/20 19:21 Blood Culture - Preliminary Blood No Growth after 48 hours
--- NOTE | 2020-07-05 10:53 | P.PN ---
Subjective Progress Note Date: 07/05/20 Kevin Mcknight, is a 70-year-old male who presented to [facility] emergency room with a chief complaint of worsening shortness of breath and fatigue he was evaluated in emergency room he had evidence of anemia with hemoglobin down to 9 last hemoglobin was 14 stool Hemoccult was positive in addition patient had evidence of acute on chronic renal failure with worsening BUN and creatinine and evidence of elevated troponin level he was admitted to intensive care unit gastroenterology consultation and cardiology consultation were requested. On presentation to emergency room vital examination reveals a temperature of 99.7 pulse 65 respiration 18 blood pressure 137/72 pulse ox 100% on room air his white blood count was 8.3 hemoglobin 9.3 platelet count 263 BUN 48 creatinine 2.29 glucose level 173 troponin level was 0.039. EKG revealing normal sinus rhythm with ST and T-wave abnormality suggestive of lateral ischemia, chest x- ray did not reveal any acute abnormality. Patient has a known history of coronary artery disease with history of coronary artery bypass graft surgery, his story of hypertension, history of hyperlipidemia, history of [id number] diabetes mellitus, history of chronic kidney disease and history of gout. Patient has a history of atrial fibrillation, he was maintained on Xarelto and Plavix prior to admission. On review of systems patient is alert and oriented 3 in no distress , he was complaining of fatigue and shortness of breath otherwise he denies any complaints there is no fever or chills no headache or dizziness no chest pain, no cough no nausea or vomiting no abdominal pain no diarrhea no blood in the stools, however when questioned patient stated that he has been having dark stool for the last 1-2 weeks no burning with urination no frequency or urgency and no hematuria. On 07/04/2020 patient was seen and examined on the medical floor he is alert and oriented 3 in no apparent distress. No fever or chills no headache or di zziness no chest pain shortness of breath has improved there is no cough no palpitation no nausea or vomiting no abdominal pain no diarrhea no burning with urination no frequency or urgency no hematuria. Patient underwent EGD today, eighth revealed no active bleeding patient had evidence of mild gastritis, at this point will resume diet will review medications including antiplatelet and anticoagulation, will monitor his tomorrow. On 07/05/2020 patient alert and oriented 3. Patient denies any chest pain does report some shortness of breath with activity. Patient's Xarelto and Plavix have been resumed with no further episodes of bleeding. Hemoglobin dropping slightly today to 8.1. Creatinine slightly increasing to 1.83 and bun 29. Continue gentle hydration. Patient denies any nausea vomiting or diarrhea. Patient denies any urinary burning or frequency. Objective - Vital Signs Vital signs: Vital Signs Temp 98.7 F 07/05/20 08:12 Pulse 107 H 07/05/20 08:12 Resp 20 07/05/20 08:12 BP 115/50 07/05/20 08:12 Pulse Ox 98 07/05/20 08:12 Intake & Output 07/04/20 07/05/20 07/05/20 18:59 06:59 18:59 Intake Total 780 500 200 Output Total 0 Balance 780 500 200 Weight 115.5 kg Intake: IV 100 Oral 680 500 200 Output: Urine 0 Other: Voiding Method Toilet Toilet Toilet # Voids 2 0 # Bowel Movements 1 - Exam In general patient is alert and oriented 3 in no distress HEENT head normocephalic and atraumatic Neck is supple no JVD no goiter no lymphadenopathy Chest exam reveals a few scattered crackles no wheezing Cardiac exam reveals regular heart sounds no murmurs Abdomen is soft nontender no organomegaly with normal bowel sounds Extremity exam reveals no edema no cyanosis or clubbing Neurological examination reveals no gross focal deficit - Labs CBC & Chem 7: 07/05/20 07:39 07/05/20 07:39 Labs: Abnormal Lab Results - Last 24 Hours (Table) 07/04/20 07/04/20 07/05/20 Range/Units 11:54 17:53 00:07 RBC (4.30-5.90) m/uL Hgb (13.0-17.5) gm/dL Hct (39.0-53.0) % Sodium (137-145) mmol/L BUN (9-20) mg/dL Creatinine (0.66-1.25) mg/dL Glucose (74-99) mg/dL POC Glucose (mg/dL) 165 H 212 H 138 H (75-99) mg/dL Calcium (8.4-10.2) mg/dL Total Protein (6.3-8.2) g/dL Albumin (3.5-5.0) g/dL 07/05/20 07/05/20 07/05/20 Range/Units 06:03 07:39 07:39 RBC 2.70 L (4.30-5.90) m/uL Hgb 8.1 L (13.0-17.5) gm/dL Hct 25.9 L (39.0-53.0) % Sodium 135 L (137-145) mmol/L BUN 29 H (9-20) mg/dL Creatinine 1.83 H (0.66-1.25) mg/dL Glucose 211 H (74-99) mg/dL POC Glucose (mg/dL) 165 H (75-99) mg/dL Calcium 8.3 L (8.4-10.2) mg/dL Total Protein 5.8 L (6.3-8.2) g/dL Albumin 3.4 L (3.5-5.0) g/dL Microbiology - Last 24 Hours (Table) 07/02/20 19:21 Blood Culture - Preliminary Blood No Growth after 48 hours Assessment and Plan Plan: 1. Fatigue and shortness of breath, likely related to anemia 2. Anemia with positive stool Hemoccult 3. Acute on chronic renal failure creatinine on presentation to 0.29 creatinine in January 2019 was 1.41 4. Elevated troponin level on presentation, patient denies chest pain. Per cardiology likely secondary to renal failure 5. Underlying history of coronary artery disease 6. Underlying history of diabetes mellitus Patient currently admitted to telemetry floor Status post EGD showing no active bleeding, mild gastritis. Hemoglobin 8.1. Xarelto and Plavix have been resumed Gentle hydration for acute kidney injury Possible discharge in the next 24-48 hours PT OT consult placed
[2020-07-05] MEDS: lisinopriL 10 MG TAB PO SCH (11:24)
[2020-07-05] MEDS: MAGNESIUM OXIDE 400 MG TAB PO SCH (11:24)
[2020-07-05 12:43] LABS: Glucose,Whole Blood 191 mg/dL (75-99)
[2020-07-05] MEDS: RIVAROXABAN 15 MG TAB PO SCH (16:31)
[2020-07-05 17:11] LABS: Glucose,Whole Blood 158 mg/dL (75-99)
[2020-07-05] MEDS ORDERED: PANTOPRAZOLE 40 MG TABLET PO SCH (17:30)
--- NOTE | 2020-07-05 19:01 | P.PN ---
Subjective Progress Note Date: 07/05/20 Principal diagnosis: GI bleed, melena, anemia of acute blood loss the patient is seen lying in bed. No further signs or symptoms of bleeding. Tolerating diet. No abdominal pain. Objective - Vital Signs Vital signs: Vital Signs Temp 98.0 F 07/05/20 11:21 Pulse 109 H 07/05/20 11:21 Resp 16 07/05/20 11:21 BP 123/65 07/05/20 11:21 Pulse Ox 98 07/05/20 11:21 Intake & Output 07/04/20 07/05/20 07/05/20 18:59 06:59 18:59 Intake Total 590 587 4675 Output Total 0 Balance 598 096 8671 Weight 115.5 kg Intake: IV 100 Oral 913 621 7359 Output: Urine 0 Other: Voiding Method Toilet Toilet Toilet # Voids 2 0 1 # Bowel Movements 1 - Exam On physical examination, patient appears comfortable in no apparent distress. HEAD: Normocephalic, atraumatic. EYES: No scleral icterus. No conjunctival injection. MOUTH: No lesions, tongue midline. NECK: Trachea midline, no gross abnormalities. ABDOMEN: Soft, obese. Bowel sounds are positive. No organomegaly. No guarding or rigidity. EXTREMITIES: No pedal edema. SKIN: No rashes, no jaundice. NEUROLOGIC: Alert and oriented x3. No focal deficits. - Labs CBC & Chem 7: 07/05/20 07:39 07/05/20 07:39 Labs: Abnormal Lab Results - Last 24 Hours (Table) 07/04/20 07/04/20 07/05/20 Range/Units 11:54 17:53 00:07 RBC (4.30-5.90) m/uL Hgb (13.0-17.5) gm/dL Hct (39.0-53.0) % Sodium (137-145) mmol/L BUN (9-20) mg/dL Creatinine (0.66-1.25) mg/dL Glucose (74-99) mg/dL POC Glucose (mg/dL) 165 H 212 H 138 H (75-99) mg/dL Calcium (8.4-10.2) mg/dL Total Protein (6.3-8.2) g/dL Albumin (3.5-5.0) g/dL 07/05/20 07/05/20 07/05/20 Range/Units 06:03 07:39 07:39 RBC 2.70 L (4.30-5.90) m/uL Hgb 8.1 L (13.0-17.5) gm/dL Hct 25.9 L (39.0-53.0) % Sodium 135 L (137-145) mmol/L BUN 29 H (9-20) mg/dL Creatinine 1.83 H (0.66-1.25) mg/dL Glucose 211 H (74-99) mg/dL POC Glucose (mg/dL) 165 H (75-99) mg/dL Calcium 8.3 L (8.4-10.2) mg/dL Total Protein 5.8 L (6.3-8.2) g/dL Albumin 3.4 L (3.5-5.0) g/dL Microbiology - Last 24 Hours (Table) 07/02/20 19:21 Blood Culture - Preliminary Blood No Growth after 48 hours Assessment and Plan (1) GI bleed Narrative/Plan: 70-year-old male with multiple medical comorbidities on both anticoagulation and antiplatelet therapy who presented to the hospital due to complaints of shortness of breath and weakness. Patient has previously been seen for anemia and concern for GI bleed with colonoscopy in 10/2016 significant for diverticulosis and polypectomy, EGD in 12/2018 significant for mild gastritis and subsequent small bowel capsule endoscopy in 12/2018 with no active bleeding noted but incomplete visualization of the distal small bowel and no pathology to explain anemia. The patient did report dark colored bowel movements on current presentation. Suspicion is for small bowel bleed, with plan for endoscopy to rule out peptic ulcer disease, AVM, Dieulafoy lesion or other etiology. S ymptoms currently improving with a normal hemoglobin and no further dark bowel movements over the past few days. EGD performed with no active bleeding or old blood noted and only findings of mild gastritis. Patient has remained asymptomatic with stable hemoglobin. Current Visit: Yes Status: Acute Code(s): K92.2 - GASTROINTESTINAL HEMORRHAGE, UNSPECIFIED SNOMED Code(s): 26915267 (2) Acute blood loss anemia Current Visit: No Status: Acute Code(s): D62 - ACUTE POSTHEMORRHAGIC ANEMIA SNOMED Code(s): 286062885 Plan: Supportive care okay for diet Continue to monitor hemoglobin and hematocrit and transfuse as needed okay to continue anticoagulation and antiplatelet therapy Protonix daily continue to monitor for any signs or symptoms of GI bleeding Okay for discharge when otherwise medically stable from GI perspective pending clinical course Thank you for allowing us to participate in the care of the patient
[2020-07-05] MEDS: PRAVASTATIN SODIUM 80 MG TAB PO SCH (21:17)
[2020-07-06 00:03] LABS: Glucose,Whole Blood 172 mg/dL (75-99)
[2020-07-06] MEDS: INSULIN ASPART (NovoLOG) 100 UNIT/ML VIAL SQ SCH ×3 (00:43→11:39)
[2020-07-06 06:28] LABS: Glucose,Whole Blood 133 mg/dL (75-99)
[2020-07-06] MEDS: glipiZIDE 10 MG TAB PO SCH (06:41)
[2020-07-06] MEDS: REPAGLINIDE 1 MG TAB PO SCH (06:42)
[2020-07-06] MEDS: SODIUM CHLORIDE 0.9% 1,000 ML IV SCH (06:43)
[2020-07-06] MEDS ORDERED: PANTOPRAZOLE 40 MG TABLET PO SCH (07:30)
[2020-07-06 08:04] LABS: Basophils % (A) 0 %; Eosinophils # (A) 0.2 k/uL (0-0.7); Eosinophils % (A) 2 %; HCT 27.3 % (39.0-53.0); HGB 8.9 gm/dL (13.0-17.5); Hypochromasia Moderate; Lymphocytes # (A) 2.2 k/uL (1.0-4.8); Lymphocytes % (A) 28 %; MCH 30.4 pg (25.0-35.0); MCHC 32.6 g/dL (31.0-37.0); MCV 93.4 fL (80.0-100.0); Mean Platelet Volume 7.2; Monocytes # (A) 0.5 k/uL (0-1.0); Monocytes % (A) 6 %; Neutrophils # (A) 4.8 k/uL (1.3-7.7); Neutrophils % (A) 61 %; Platelet Count 216 k/uL (150-450); Poikilocytosis Slight; RBC 2.93 m/uL (4.30-5.90); RDW 14.9 % (11.5-15.5); WBC 7.9 k/uL (3.8-10.6)
[2020-07-06 08:08] VITALS: RESP 18
[2020-07-06] MEDS: MONTELUKAST 10 MG TAB PO SCH (08:09)
[2020-07-06] MEDS: allopurinoL 100 MG TAB PO SCH (08:10)
[2020-07-06] MEDS: METOPROLOL SUCCINATE (ER) 100 MG TAB.ER.24H PO SCH (08:10)
[2020-07-06] MEDS: FUROSEMIDE 40 MG TAB PO SCH (08:10)
[2020-07-06] MEDS: LINAGLIPTIN 5 MG TABLET PO SCH (08:10)
[2020-07-06] MEDS: VERAPAMIL 40 MG TAB PO SCH (08:10)
[2020-07-06] MEDS: CLOPIDOGREL 75 MG TAB PO SCH (08:10)
[2020-07-06 08:17] LABS: Albumin 3.7 g/dL (3.5-5.0); Calcium 8.6 mg/dL (8.4-10.2); Potassium 4.7 mmol/L (3.5-5.1); Total Bilirubin 0.3 mg/dL (0.2-1.3); Total Protein 6.3 g/dL (6.3-8.2)
[2020-07-06 11:37] VITALS: BP 143/54; PULSE 73; TEMP 97.7
[2020-07-06 11:37] LABS: Glucose,Whole Blood 193 mg/dL (75-99)
[2020-07-06] MEDS: lisinopriL 10 MG TAB PO SCH (11:39)
[2020-07-06] MEDS: MAGNESIUM OXIDE 400 MG TAB PO SCH (11:39)
--- NOTE | 2020-07-06 12:25 | P.PN ---
Subjective Progress Note Date: 07/06/20 HISTORY OF PRESENT ILLNESS: Patient examined this morning at the bedside. Patient denies chest pain or pressure. Reports mild shortness of breath which she states is his baseline. Patient is maintaining sinus rhythm. He is maintained on Xarelto and Plavix. Hemoglobin today 8.9. He is status post EGD on 07/04/2020 revealing mild gastritis. PHYSICAL EXAM: VITAL SIGNS: Reviewed. GENERAL: Well-developed in no acute distress. NECK: Supple. No JVD or thyromegaly LUNGS: Respirations even and unlabored. Lungs essentially clear to auscultation bilaterally. HEART: Regular rate and rhythm. S1 and S2 heard. EXTREMITIES: Normal range of motion. No clubbing or cyanosis. Peripheral pulses intact. No lower extremity edema ASSESSMENT: Acute GI bleed, status post EGD revealing mild gastritis Paroxysmal atrial fibrillation History of coronary artery disease with previous CABG Acute on chronic kidney disease PLAN: Continue current cardiac medications Patient is stable for discharge from a cardiac perspective Patient to follow-up in the office with Dr. Hendricks Nurse practitioner note has been reviewed by physician. Signing provider agrees with the documented findings, assessment, and plan of care. Objective - Vital Signs Vital signs: Vital Signs Temp 97.7 F 07/06/20 11:37 Pulse 73 07/06/20 11:37 Resp 18 07/06/20 11:37 BP 143/54 07/06/20 11:37 Pulse Ox 99 07/06/20 11:37 Intake & Output 07/05/20 07/06/20 07/06/20 18:59 06:59 18:59 Intake Total 1532 894 800 Output Total 0 Balance 1532 894 800 Weight 114.1 kg Intake: Intake, IV Titration 450 500 Amount Sodium Chloride 0.9% 1, 450 500 000 ml @ 50 mls/hr IV . Q20H [facility]ELLE Rx#:[id number] Oral 1532 444 300 Output: Urine 0 Other: Voiding Method Toilet Toilet Toilet # Voids 2 2 1 - Labs CBC & Chem 7: 07/06/20 06:50 07/06/20 06:50 Labs: Abnormal Lab Results - Last 24 Hours (Table) 07/05/20 07/05/20 07/06/20 Range/Units 12:42 17:10 00:00 RBC (4.30-5.90) m/uL Hgb (13.0-17.5) gm/dL Hct (39.0-53.0) % BUN (9-20) mg/dL Creatinine (0.66-1.25) mg/dL Glucose (74-99) mg/dL POC Glucose (mg/dL) 191 H 158 H 172 H (75-99) mg/dL 07/06/20 07/06/20 07/06/20 Range/Units 06:27 06:50 06:50 RBC 2.93 L (4.30-5.90) m/uL Hgb 8.9 L (13.0-17.5) gm/dL Hct 27.3 L (39.0-53.0) % BUN 29 H (9-20) mg/dL Creatinine 1.75 H (0.66-1.25) mg/dL Glucose 129 H (74-99) mg/dL POC Glucose (mg/dL) 133 H (75-99) mg/dL 07/06/20 Range/Units 11:34 RBC (4.30-5.90) m/uL Hgb (13.0-17.5) gm/dL Hct (39.0-53.0) % BUN (9-20) mg/dL Creatinine (0.66-1.25) mg/dL Glucose (74-99) mg/dL POC Glucose (mg/dL) 193 H (75-99) mg/dL Microbiology - Last 24 Hours (Table) 07/02/20 19:21 Blood Culture - Preliminary Blood No Growth after 72 hours
--- NOTE | 2020-07-06 15:13 | P.DS ---
Providers Date of admission: 07/02/20 19:29 Expected date of discharge: 07/06/20 Attending physician: Chichi Chen Consults: 07/03/20 11:33 Consult Physician Routine Consulting Provider: Nahid Porras Consult Reason/Comments: trops, Do you want consulting provider notified?: Yes Primary care physician: Kristel [facility] Course: Diagnoses on discharge: 1. Fatigue and shortness of breath, likely related to anemia 2. Anemia with positive stool Hemoccult, EGD done during this admission revealed evidence of gastritis 3. Acute on chronic renal failure creatinine on presentation to 0.29 creatinine in January 2019 was 1.41 4. Elevated troponin level on presentation, patient denies chest pain. Per cardiology likely secondary to renal failure 5. Underlying history of coronary artery disease 6. Underlying history of diabetes mellitus Hospital course: Kevin Mcknight, is a 70-year-old male who presented to [facility] emergency room with a chief complaint of worsening shortness of breath and fatigue he was evaluated in emergency room he had evidence of anemia with hemoglobin down to 9 last hemoglobin was 14 stool Hemoccult was positive in addition patient had evidence of acute on chronic renal failure with worsening BUN and creatinine and evidence of elevated troponin level he was admitted to intensive care unit gastroenterology consultation and cardiology consultation were requested. On presentation to emergency room vital examination reveals a temperature of 99.7 pulse 65 respiration 18 blood pressure 137/72 pulse ox 100% on room air his white blood count was 8.3 hemoglobin 9.3 platelet count 263 BUN 48 creatinine 2.29 glucose level 173 troponin level was 0.039. EKG revealing normal sinus rhythm with ST and T-wave abnormality suggestive of lateral ischemia, chest x- ray did not reveal any acute abnormality. Patient has a known history of coronary artery disease with history of coronary artery bypass graft surgery, his story of hypertension, history of hyperlipidemia, history of [id number] diabetes mellitus, history of chronic kidney disease and history of gout. Patient has a history of atrial fibrillation, he was maintained on Xarelto and Plavix prior to admission. On review of systems patient is alert and oriented 3 in no distress , he was complaining of fatigue and shortness of breath otherwise he denies any complaints there is no fever or chills no headache or dizziness no chest pain, no cough no nausea or vomiting no abdominal pain no diarrhea no blood in the stools, however when questioned patient stated that he has been having dark stool for the last 1-2 weeks no burning with urination no frequency or urgency and no hematuria. On 07/04/2020 patient was seen and examined on the medical floor he is alert and oriented 3 in no apparent distress. No fever or chills no headache or dizziness no chest pain shortness of breath has improved there is no cough no palpitation no nausea or vomiting no abdominal pain no diarrhea no burning with urination no frequency or urgency no hematuria. Patient underwent EGD today, eighth revealed no active bleeding patient had evidence of mild gastritis, at this point will resume diet will review medications including antiplatelet and anticoagulation, will monitor his tomorrow. On 07/05/2020 patient alert and oriented 3. Patient denies any chest pain does report some shortness of breath with activity. Patient's Xarelto and Plavix have been resumed with no further episodes of bleeding. Hemoglobin dropping slightly today to 8.1. Creatinine slightly increasing to 1.83 and bun 29. Continue gentle hydration. Patient denies any nausea vomiting or diarrhea. Patient denies any urinary burning or frequency. On 07/06/2020 patient was seen and examined on the medical floor he is alert and oriented 3 in no distress there is no fever or chills no headache or dizziness no chest pain no shortness of breath no cough no nausea or vomiting no abdominal pain no diarrhea burning with urination no frequency or urgency no hematuria. There are no new episode of bleeding patient was resumed on Xarelto on Plavix yesterday, he was evaluated today by cardiology and gastroenterology and was cleared for discharge. Kidney function has improved significantly. Patient will follow up with his primary care physician within one week for further evaluation and treatment Patient Condition at Discharge: Stable Plan - Discharge Summary Discharge Rx Participant: No New Discharge Prescriptions: New Ferrous Sulfate [Iron (65 MG Elemental)] 325 mg PO DAILY 30 Days #30 tab Pantoprazole [Protonix] 40 mg PO AC-BRKFST tablet. Continue Allopurinol [Zyloprim] 100 mg PO DAILY [place]-3 Fatty Acids/Fish Oil [Fish Oil 1,000 mg Softgel] 1 cap PO BID Nitroglycerin Sl Tabs [Nitrostat] 0.4 mg SL Q5M PRN PRN Reason: Chest Pain Omeprazole [PriLOSEC] 20 mg PO BID PRN PRN Reason: Heartburn Cyanocobalamin [Vitamin B-12 Injection] 1,000 mcg IM Q30D Metoprolol Succinate (ER) [Toprol XL] 100 mg PO DAILY Magnesium Oxide [Mag-Ox] 400 mg PO DAILY@1200 Clopidogrel [Plavix] 75 mg PO DAILY #30 tab Montelukast [Singulair] 10 mg PO DAILY Ranolazine [Ranexa] 500 mg PO BID Pravastatin Sodium 80 mg PO HS Linagliptin [Tradjenta] 5 mg PO DAILY Empagliflozin [Jardiance] 25 mg PO DAILY Repaglinide [Prandin] 0.5 mg PO AC-BID Cbd Oil 1500mg 1,500 mg PO DAILY PRN PRN Reason: Pain glipiZIDE XL [Glucotrol XL] 20 mg PO AC-BRKFST Verapamil [Isoptin] 40 mg PO BID Rivaroxaban [Xarelto] 7.5 mg PO DAILY Lisinopril [Zestril] 5 mg PO DAILY@1200 Furosemide [Lasix] 20 mg PO BID Discharge Medication List Allopurinol [Zyloprim] 100 mg PO DAILY 03/16/15 [History] [place]-3 Fatty Acids/Fish Oil [Fish Oil 1,000 mg Softgel] 1 cap PO BID 03/16/15 [History] Nitroglycerin Sl Tabs [Nitrostat] 0.4 mg SL Q5M PRN 05/12/16 [History] Omeprazole [PriLOSEC] 20 mg PO BID PRN 05/12/16 [History] Cyanocobalamin [Vitamin B-12 Injection] 1,000 mcg IM Q30D 05/26/16 [History] Magnesium Oxide [Mag-Ox] 400 mg PO DAILY@1200 08/19/16 [History] Metoprolol Succinate (ER) [Toprol XL] 100 mg PO DAILY 08/19/16 [History] Clopidogrel [Plavix] 75 mg PO DAILY #30 tab 09/03/16 [Rx] Montelukast [Singulair] 10 mg PO DAILY 08/31/17 [History] Ranolazine [Ranexa] 500 mg PO BID 08/31/17 [History] Pravastatin Sodium 80 mg PO HS 01/15/19 [History] Cbd Oil 1500mg 1,500 mg PO DAILY PRN 07/02/20 [History] Empagliflozin [Jardiance] 25 mg PO DAILY 07/02/20 [History] Furosemide [Lasix] 20 mg PO BID 07/02/20 [History] Linagliptin [Tradjenta] 5 mg PO DAILY 07/02/20 [History] Lisinopril [Zestril] 5 mg PO DAILY@1200 07/02/20 [History] Repaglinide [Prandin] 0.5 mg PO AC-BID 07/02/20 [History] Rivaroxaban [Xarelto] 7.5 mg PO DAILY 07/02/20 [History] Verapamil [Isoptin] 40 mg PO BID 07/02/20 [History] glipiZIDE XL [Glucotrol XL] 20 mg PO AC-BRKFST 07/02/20 [History] Ferrous Sulfate [Iron (65 MG Elemental)] 325 mg PO DAILY 30 Days #30 tab 07/06/20 [Rx] Pantoprazole [Protonix] 40 mg PO AC-BRKFST tablet. 07/06/20 [Rx] Follow up Appointment(s)/Referral(s): Samy Hendricks MD [STAFF PHYSICIAN] - 2 Weeks Kristel Hall MD [Primary Care Provider] - 1-2 days
== END 2020-07-06 16:04 | disposition home or self-care (01) | DRG 378 ==
LOC: EC 18:40 → 3SCARD 19:29 → 2SICU 07-03 13:30 → 3SCARD 07-03 22:19
PROVIDERS: ADMIT Internal Medicine; ATTEND Internal Medicine
PROC: 0DJ08ZZ Inspection of Upper Intestinal Tract, Via Natural or Artificial Opening Endoscopic (ICD-10-PCS; principal; 2020-07-04 08:00)
DX: K92.2 Gastrointestinal hemorrhage, unspecified (principal); D62 Acute posthemorrhagic anemia; I13.0 Hypertensive heart and chronic kidney disease with heart failure and stage 1 through stage 4 chronic kidney disease, or unspecified chronic kidney disease; N17.9 Acute kidney failure, unspecified; I27.20 Pulmonary hypertension, unspecified; I50.9 Heart failure, unspecified; N18.30 Chronic kidney disease, stage 3 unspecified; E11.22 Type 2 diabetes mellitus with diabetic chronic kidney disease; E11.51 Type 2 diabetes mellitus with diabetic peripheral angiopathy without gangrene; I48.0 Paroxysmal atrial fibrillation; Z20.828 Contact with and (suspected) exposure to other viral communicable diseases; E78.5 Hyperlipidemia, unspecified; I08.3 Combined rheumatic disorders of mitral, aortic and tricuspid valves; I25.10 Atherosclerotic heart disease of native coronary artery without angina pectoris; I25.2 Old myocardial infarction; K21.9 Gastro-esophageal reflux disease without esophagitis; K29.70 Gastritis, unspecified, without bleeding; K57.30 Diverticulosis of large intestine without perforation or abscess without bleeding; K80.20 Calculus of gallbladder without cholecystitis without obstruction; M10.9 Gout, unspecified; R79.89 Other specified abnormal findings of blood chemistry; M16.0 Bilateral primary osteoarthritis of hip; M47.9 Spondylosis, unspecified; E66.9 Obesity, unspecified; Z68.37 Body mass index [BMI] 37.0-37.9, adult; Z79.01 Long term (current) use of anticoagulants; Z79.02 Long term (current) use of antithrombotics/antiplatelets; Z79.84 Long term (current) use of oral hypoglycemic drugs; Z79.899 Other long term (current) drug therapy; Z87.19 Personal history of other diseases of the digestive system; Z87.891 Personal history of nicotine dependence; Z95.1 Presence of aortocoronary bypass graft; Z95.5 Presence of coronary angioplasty implant and graft; Z88.1 Allergy status to other antibiotic agents; Z88.2 Allergy status to sulfonamides; Z95.820 Peripheral vascular angioplasty status with implants and grafts; Z90.89 Acquired absence of other organs; Z86.010 Personal history of colon polyps; Z82.49 Family history of ischemic heart disease and other diseases of the circulatory system
CPT/HCPCS: 36415; 43235; 71046; 80053; 81003; 82272; 83605; 83735; 83880; 84484; 85025; 85027; 85610; 85730; 86850; 86900; 86901; 87040; 93005; 93306; 96360; 96361; 99285

== ENCOUNTER 2020-09-15 10:15 | Emergency (ER) | payer MEDICARE ==
[2020-09-15 10:25] VITALS: RESP 18; TEMP 98.1
--- NOTE | 2020-09-15 10:48 | ED ---
General Adult HPI - General Chief complaint: Arrhythmia/Palpitations Stated complaint: heart racing Time Seen by Provider: 09/15/20 10:16 Source: patient Mode of arrival: wheelchair Limitations: no limitations - History of Present Illness Initial comments: Dictation was produced using [employer] dictation software. please excuse any grammatical, word or spelling errors. This patient was cared for during a federal and state declared state of emergen cy secondary to Covid 19 Chief Complaint: 70-year-old male past medical history of atrial fibrillation, coronary artery disease, heart failure presents emergency part for palpitations History of Present Illness: 70-year-old male he has past medical history of a fibrillation. Patient takes Xarelto and several cardiac medications. Patient states he is woke up with symptoms like this. Patient states that 6 days ago he was diagnosed with pulmonary infection. He took his last dose of amoxicillin within the last 24 hours. States that his URI symptoms have improved since complaining antibiotics. Patient states he has had symptoms like this in the past. He is accompanied by his significant other. Patient has no other complaints at this time. Denies any constitutional symptoms. No shortness of breath. Does feel palpitations currently. The ROS documented in this emergency department record has been reviewed and confirmed by me. Those systems with pertinent positive or negative responses have been documented in the HPI. All other systems are other negative and/or noncontributory. PHYSICAL EXAM: General Impression: Alert and oriented x3, not in acute distress HEENT: Normocephalic atraumatic, extra-ocular movements intact, pupils equal and reactive to light bilaterally, mucous membranes moist. Cardiovascular: Irregularly irregular, slightly tachycardic Chest: Able to complete full sentences, no retractions, no tachypnea Abdomen: abdomen soft, non-tender, non-distended, no organomegaly Musculoskeletal: Pulses present and equal in all extremities, no peripheral edema Motor: no focal deficits noted Neurological: CN II-XII grossly intact, no focal motor or sensory deficits noted Skin: Intact with no visualized rashes Psych: Normal affect and mood ED course: 70-year-old male presents with chief complaint of palpitations. Vital signs upon arrival shows heart rate of 92, rest of vital signs within acceptable limits. EKG shows heart rate of 107. Patient given normal Toprol prolonged. His vital signs are improved. Laboratory evaluation obtained. CBC unremarkable. Coag panel is negative. Metabolic panel shows slight hyponatremia 131. Renal markers are within acceptable limits. Patient is currently is positive. Chest x-ray shows possible pneumonia. Clinical presentation consistent with covid pneumonia. Patient had already completed a course of antibiotics. Patient is not hypoxic and not showing any signs of respiratory distress. Patient will be discharged. Return parameters discussed. More discussion was held with patient's . She had symptoms approximately 2 weeks ago that resolved on its own. She was never tested. EKG interpretation: Ventricular rate 107, A. fib with RVR, QRS 20, QTC 477. No HI prolongation, no QTC prolongation, no ST or T-wave changes noted. EKG compared to 07/02/2020 showing no changes. Overall, this EKG is unremarkable - Related Data Home Medications Medication Instructions Recorded Confirmed Allopurinol [Zyloprim] 100 mg PO DAILY 03/16/15 09/15/20 [place]-3 Fatty Acids/Fish Oil [Fish 1 cap PO BID 03/16/15 09/15/20 Oil 1,000 mg Softgel] Nitroglycerin Sl Tabs [Nitrostat] 0.4 mg SL Q5M PRN 05/12/16 09/15/20 Omeprazole [PriLOSEC] 20 mg PO BID PRN 05/12/16 09/15/20 Cyanocobalamin [Vitamin B-12 1,000 mcg IM Q30D 05/26/16 09/15/20 Injection] Magnesium Oxide [Mag-Ox] 400 mg PO DAILY@1200 08/19/16 09/15/20 Metoprolol Succinate (ER) [Toprol 100 mg PO DAILY 08/19/16 09/15/20 XL] Montelukast [Singulair] 10 mg PO DAILY 08/31/17 09/15/20 Ranolazine [Ranexa] 500 mg PO BID 08/31/17 09/15/20 Pravastatin Sodium 80 mg PO HS 01/15/19 09/15/20 Cbd Oil 1500mg 1,500 mg PO DAILY PRN 07/02/20 09/15/20 Furosemide [Lasix] 20 mg PO BID 07/02/20 09/15/20 Lisinopril [Zestril] 5 mg PO DAILY@1200 07/02/20 09/15/20 Repaglinide [Prandin] 0.5 mg PO AC-SUPPER 07/02/20 09/15/20 Rivaroxaban [Xarelto] 7.5 mg PO HS 07/02/20 09/15/20 Verapamil [Isoptin] 40 mg PO BID 07/02/20 09/15/20 glipiZIDE XL [Glucotrol XL] 10 mg PO AC-BRKFST 07/02/20 09/15/20 Empagliflozin/Linagliptin 1 tab PO DAILY 09/15/20 09/15/20 [Glyxambi 25 mg-5 mg Tablet] Ferrous Sulfate [Iron (65 MG 325 mg PO HS 09/15/20 09/15/20 Elemental)] Previous Rx's Medication Instructions Recorded Pantoprazole [Protonix] 40 mg PO AC-BRKFST tablet. 07/06/20 Allergies Allergy/AdvReac Type Severity Reaction Status Date / Time Sulfa (Sulfonamide Allergy Rash/Hives Verified 09/15/20 11:15 Antibiotics) sulfamethoxazole Allergy Rash/Hives Verified 09/15/20 11:15 [From Bactrim] trimethoprim [From Bactrim] Allergy Rash/Hives Verified 09/15/20 11:15 Review of Systems ROS Statement: Those systems with pertinent positive or pertinent negative responses have been documented in the HPI. ROS Other: All systems not noted in ROS Statement are negative. Past Medical History Past Medical History: Atrial Fibrillation, Coronary Artery Disease (CAD), Chest Pain / Angina, Heart Failure, Diabetes Mellitus, GERD/Reflux, GI Bleed, Hyperlipidemia, Hypertension, Myocardial Infarction (HI), Osteoarthritis (OA), Renal Disease, Vascular Disorder Additional Past Medical History / Comment(s): NIDDM type II, ckd-pt states doctor watches his renal functions, anemia-pt states told GI bleed but site never found, benign colon polyps, HI in 2017 d/t anemia, caratid artery disease, PAD, athritis in low back and bilateral hips, past gout R foot, gallstones. Last Myocardial Infarction Date:: 09/2016 History of Any Multi-Drug Resistant Organisms: None Reported Past Surgical History: Coronary Bypass/CABG, Heart Catheterization, Heart Catheterization With Stent, Orthopedic Surgery, Tonsillectomy Additional Past Surgical History / Comment(s): Multiple peripheral revascularization procedures/stents/arthrectomies/ballooning, multiple aortagr ams with runoffs, JOIE, PCI with stent, 2006 CABG 3 vessel, EGD, colonoscopies/benign polypectomies, R foot gout, cyst on back drained Past Anesthesia/Blood Transfusion Reactions: No Reported Reaction Date of Last Stent Placement:: 2014 Past Psychological History: No Psychological Hx Reported Smoking Status: Former smoker Past Alcohol Use History: None Reported Past Drug Use History: None Reported - Past Family History Father Family Medical History: Myocardial Infarction (HI) Additional Family Medical History / Comment(s): Father at the age of 65 yrs from heart problems. He had a HI in his 30s and had CABG Mother Family Medical History: Pulmonary Embolus General Exam Limitations: no limitations Course Vital Signs 09/15/20 09/15/20 10:21 11:42 Temperature 98.1 F Pulse Rate 92 94 Respiratory 18 18 Rate Blood Pressure 137/96 119/60 O2 Sat by Pulse 95 95 Oximetry Medical Decision Making - Lab Data Result diagrams: 09/15/20 10:48 09/15/20 10:48 Lab Results 09/15/20 09/15/20 09/15/20 Range/Units 10:48 10:48 10:48 WBC 8.1 (3.8-10.6) k/uL RBC 4.73 (4.30-5.90) m/uL Hgb 13.5 (13.0-17.5) gm/dL Hct 41.3 (39.0-53.0) % MCV 87.3 D (80.0-100.0) fL MCH 28.4 (25.0-35.0) pg MCHC 32.6 (31.0-37.0) g/dL RDW 14.6 (11.5-15.5) % Plt Count 284 (150-450) k/uL MPV 7.1 Neutrophils % 82 % Lymphocytes % 10 % Monocytes % 5 % Eosinophils % 1 % Basophils % 1 % Neutrophils # 6.7 (1.3-7.7) k/uL Lymphocytes # 0.8 L (1.0-4.8) k/uL Monocytes # 0.4 (0-1.0) k/uL Eosinophils # 0.1 (0-0.7) k/uL Basophils # 0.1 (0-0.2) k/uL PT 10.5 (9.0-12.0) sec INR 1.0 (<1.2) APTT 25.0 (22.0-30.0) sec Sodium 131 L (137-145) mmol/L Potassium 4.3 (3.5-5.1) mmol/L Chloride 97 L (98-107) mmol/L Carbon Dioxide 26 (22-30) mmol/L Anion Gap 8 mmol/L BUN 24 H (9-20) mg/dL Creatinine 1.34 H (0.66-1.25) mg/dL Est GFR (CKD-EPI)AfAm 62 (>60 ml/min/1.73 sqM) Est GFR (CKD-EPI)NonAf 53 (>60 ml/min/1.73 sqM) Glucose 266 H (74-99) mg/dL Calcium 8.1 L (8.4-10.2) mg/dL Magnesium 1.6 (1.6-2.3) mg/dL Total Bilirubin 0.7 (0.2-1.3) mg/dL AST 28 (17-59) U/L ALT 15 (4-49) U/L Alkaline Phosphatase 68 (38-126) U/L Troponin I (0.000-0.034) ng/mL Total Protein 6.3 (6.3-8.2) g/dL Albumin 3.3 L (3.5-5.0) g/dL Coronavirus (PCR) (Not Detectd) 09/15/20 09/15/20 Range/Units 10:48 11:39 WBC (3.8-10.6) k/uL RBC (4.30-5.90) m/uL Hgb (13.0-17.5) gm/dL Hct (39.0-53.0) % MCV (80.0-100.0) fL MCH (25.0-35.0) pg MCHC (31.0-37.0) g/dL RDW (11.5-15.5) % Plt Count (150-450) k/uL MPV Neutrophils % % Lymphocytes % % Monocytes % % Eosinophils % % Basophils % % Neutrophils # (1.3-7.7) k/uL Lymphocytes # (1.0-4.8) k/uL Monocytes # (0-1.0) k/uL Eosinophils # (0-0.7) k/uL Basophils # (0-0.2) k/uL PT (9.0-12.0) sec INR (<1.2) APTT (22.0-30.0) sec Sodium (137-145) mmol/L Potassium (3.5-5.1) mmol/L Chloride (98-107) mmol/L Carbon Dioxide (22-30) mmol/L Anion Gap mmol/L BUN (9-20) mg/dL Creatinine (0.66-1.25) mg/dL Est GFR (CKD-EPI)AfAm (>60 ml/min/1.73 sqM) Est GFR (CKD-EPI)NonAf (>60 ml/min/1.73 sqM) Glucose (74-99) mg/dL Calcium (8.4-10.2) mg/dL Magnesium (1.6-2.3) mg/dL Total Bilirubin (0.2-1.3) mg/dL AST (17-59) U/L ALT (4-49) U/L Alkaline Phosphatase (38-126) U/L Troponin I 0.017 (0.000-0.034) ng/mL Total Protein (6.3-8.2) g/dL Albumin (3.5-5.0) g/dL Coronavirus (PCR) Detected A (Not Detectd) Disposition Clinical Impression: COVID-19 Disposition: HOME SELF-CARE Condition: Fair Instructions (If sedation given, give patient instructions): Viral Pneumonia (ED) Additional Instructions: Today you were evaluated for symptoms consistent with upper respiratory infection. You tested positive for coronavirus on rapid test.. Your are stable for discharge, however it is instructed to to seek immediate medical attention especially if you develop worsening symptoms especially respiratory distress. In the meantime please remain in quarantine for 14 days. For any other questions please contact [facility] for here in emergency department or [facility] at [phone] Is patient prescribed a controlled substance at d/c from ED?: No Referrals: Kristel Hall MD [Primary Care Provider] - 1-2 days Time of Disposition: 12:13
[2020-09-15 10:59] LABS: Basophils # (A) 0.1 k/uL (0-0.2); Basophils % (A) 1 %; Eosinophils # (A) 0.1 k/uL (0-0.7); Eosinophils % (A) 1 %; HCT 41.3 % (39.0-53.0); HGB 13.5 gm/dL (13.0-17.5); Lymphocytes # (A) 0.8 k/uL (1.0-4.8); Lymphocytes % (A) 10 %; MCH 28.4 pg (25.0-35.0); MCHC 32.6 g/dL (31.0-37.0); Mean Platelet Volume 7.1; Monocytes # (A) 0.4 k/uL (0-1.0); Monocytes % (A) 5 %; Neutrophils # (A) 6.7 k/uL (1.3-7.7); Neutrophils % (A) 82 %; Platelet Count 284 k/uL (150-450); RBC 4.73 m/uL (4.30-5.90); RDW 14.6 % (11.5-15.5); WBC 8.1 k/uL (3.8-10.6)
[2020-09-15 11:05] LABS: Albumin 3.3 g/dL (3.5-5.0); Calcium 8.1 mg/dL (8.4-10.2); Magnesium 1.6 mg/dL (1.6-2.3); Potassium 4.3 mmol/L (3.5-5.1); Total Bilirubin 0.7 mg/dL (0.2-1.3); Total Protein 6.3 g/dL (6.3-8.2)
[2020-09-15 11:06] LABS: MCV 87.3 fL (80.0-100.0)
[2020-09-15 11:07] LABS: Prothrombin Time 10.5 sec (9.0-12.0)
--- NOTE | 2020-09-15 11:12 | XR ---
EXAMINATION TYPE: XR chest 1V portable DATE OF EXAM: 09/15/2020 COMPARISON: Prior chest x-ray 07/02/2020 HISTORY: Arrhythmia TECHNIQUE: Single frontal view of the chest is obtained. FINDINGS: Question some patchy peripheral densities within the lungs. There is no pleural effusion, or pneumothorax seen. The cardiac silhouette size is stable. Patient is post median sternotomy. The re are overlying leads. The osseous structures are intact. IMPRESSION: Correlate for possible pneumonia. Follow-up recommended.
[2020-09-15] MEDS ORDERED: METOPROLOL TARTRATE 25 MG TAB PO STA (11:22)
[2020-09-15 11:43] VITALS: BP 119/60
[2020-09-15 12:24] VITALS: PULSE 82
== END 2020-09-15 12:37 | disposition home or self-care (01) ==
LOC: EC 10:15
DX: U07.1 COVID-19 (principal); I48.91 Unspecified atrial fibrillation; E87.1 Hypo-osmolality and hyponatremia; I25.119 Atherosclerotic heart disease of native coronary artery with unspecified angina pectoris; I50.9 Heart failure, unspecified; N18.9 Chronic kidney disease, unspecified; E11.22 Type 2 diabetes mellitus with diabetic chronic kidney disease; K21.9 Gastro-esophageal reflux disease without esophagitis; E78.5 Hyperlipidemia, unspecified; I13.0 Hypertensive heart and chronic kidney disease with heart failure and stage 1 through stage 4 chronic kidney disease, or unspecified chronic kidney disease; I25.2 Old myocardial infarction; M19.90 Unspecified osteoarthritis, unspecified site; M10.9 Gout, unspecified; Z79.01 Long term (current) use of anticoagulants; Z79.899 Other long term (current) drug therapy; Z88.1 Allergy status to other antibiotic agents; Z88.2 Allergy status to sulfonamides; Z87.891 Personal history of nicotine dependence; Z95.5 Presence of coronary angioplasty implant and graft; Z95.1 Presence of aortocoronary bypass graft
CPT/HCPCS: 36415; 71045; 80053; 83735; 84484; 85025; 85610; 85730; 87635; 93005; 99285

== ENCOUNTER 2020-09-27 18:29 | Inpatient (IN) | payer MEDICARE ==
--- NOTE | 2020-09-27 19:04 | ED ---
General Adult HPI - General Chief complaint: Shortness of Breath Stated complaint: +Covid, palpitations, SOB Time Seen by Provider: 09/27/20 18:50 Source: patient Mode of arrival: ambulatory Limitations: no limitations - History of Present Illness Initial comments: Dictation was produced using [email or web address] dictation software. please excuse any grammatical, word or spelling errors. This patient was cared for during a federal and state declared state of emergency secondary to Covid 19 Chief Complaint: 70-year-old male recently diagnosed with Covid 19 presents to the emergency department for palpitations. History of Present Illness: 70-year-old male presents emergency department for palpitations. Patient was seen by myself 12 days ago when he was diagnosed with Covid pneumonia. Her ports that his cold symptoms have improved. He states that over the last several days he's been having worsening palpitations. He's been feeling rather weak. Denies any chest pain. He has no shortness of breath. States she's been taking his medications as prescribed. For 7 appointment with cardiology last week however did not makes appointment. Patient has past medical history of A. fib. He takes Xarelto and metoprolol. The ROS documented in this emergency department record has been reviewed and confirmed by me. Those systems with pertinent positive or negative responses have been documented in the HPI. All other systems are other negative and/or noncontributory. PHYSICAL EXAM: General Impression: Alert and oriented x3, not in acute distress HEENT: Normocephalic atraumatic, extra-ocular movements intact, pupils equal and reactive to light bilaterally, mucous membranes moist. Cardiovascular: Irregularly irregular. Chest: Able to complete full sentences, no retractions, no tachypnea Abdomen: abdomen soft, non-tender, non-distended, no organomegaly Musculoskeletal: Pulses present and equal in all extremities, no peripheral edema Motor: no focal deficits noted Neurological: CN II-XII grossly intact, no focal motor or sensory deficits noted Skin: Intact with no visualized rashes Psych: Normal affect and mood ED course: 70-year-old well-appearing male presents to the emergency for chief complaint of palpitations. All signs upon arrival shows heart rate of 118, rest of vital signs within acceptable limits. Patient evaluated bedside found be tachycardic as high as 130s. He is not hypotensive. Patient will be given metoprolol IV push Laboratory evaluation obtained. CBC unremarkable. Metabolic panel shows fi ndings within patient's usual limits. TSH is normal troponins negative. Patient responded to metoprolol 2.5 IV push. Patient given oral metoprolol. Patient be admitted for A. fib with rapid ventricular rate. Case discussed with Dr. Chen is willing to accept patients here. Cardiology will be consulted. EKG interpretation: Ventricular rate 123, A. fib with RVR, QRS 1:30, QTC 426.. No TN prolongation, no QTC prolongation, no ST or T-wave changes noted. EKG compared to her 2020 showing no changes. Overall, this EKG is unremarkable - Related Data Home Medications Medication Instructions Recorded Confirmed Allopurinol [Zyloprim] 100 mg PO DAILY 03/16/15 09/15/20 [place]-3 Fatty Acids/Fish Oil [Fish 1 cap PO BID 03/16/15 09/15/20 Oil 1,000 mg Softgel] Nitroglycerin Sl Tabs [Nitrostat] 0.4 mg SL Q5M PRN 05/12/16 09/15/20 Omeprazole [PriLOSEC] 20 mg PO BID PRN 05/12/16 09/15/20 Cyanocobalamin [Vitamin B-12 1,000 mcg IM Q30D 05/26/16 09/15/20 Injection] Magnesium Oxide [Mag-Ox] 400 mg PO DAILY@1200 08/19/16 09/15/20 Metoprolol Succinate (ER) [Toprol 100 mg PO DAILY 08/19/16 09/15/20 XL] Montelukast [Singulair] 10 mg PO DAILY 08/31/17 09/15/20 Ranolazine [Ranexa] 500 mg PO BID 08/31/17 09/15/20 Pravastatin Sodium 80 mg PO HS 01/15/19 09/15/20 Cbd Oil 1500mg 1,500 mg PO DAILY PRN 07/02/20 09/15/20 Furosemide [Lasix] 20 mg PO BID 07/02/20 09/15/20 Lisinopril [Zestril] 5 mg PO DAILY@1200 07/02/20 09/15/20 Repaglinide [Prandin] 0.5 mg PO AC-SUPPER 07/02/20 09/15/20 Rivaroxaban [Xarelto] 7.5 mg PO HS 07/02/20 09/15/20 Verapamil [Isoptin] 40 mg PO BID 07/02/20 09/15/20 glipiZIDE XL [Glucotrol XL] 10 mg PO AC-BRKFST 07/02/20 09/15/20 Empagliflozin/Linagliptin 1 tab PO DAILY 09/15/20 09/15/20 [Glyxambi 25 mg-5 mg Tablet] Ferrous Sulfate [Iron (65 MG 325 mg PO HS 09/15/20 09/15/20 Elemental)] Previous Rx's Medication Instructions Recorded Pantoprazole [Protonix] 40 mg PO AC-BRKFST tablet. 07/06/20 Allergies Allergy/AdvReac Type Severity Reaction Status Date / Time Sulfa (Sulfonamide Allergy Rash/Hives Verified 09/27/20 18:37 Antibiotics) sulfamethoxazole Allergy Rash/Hives Verified 09/27/20 18:37 [From Bactrim] trimethoprim [From Bactrim] Allergy Rash/Hives Verified 09/27/20 18:37 Review of Systems ROS Statement: Those systems with pertinent positive or pertinent negative responses have been documented in the HPI. ROS Other: All systems not noted in ROS Statement are negative. Past Medical History Past Medical History: Atrial Fibrillation, Coronary Artery Disease (CAD), Chest Pain / Angina, Heart Failure, Diabetes Mellitus, GERD/Reflux, GI Bleed, Hyperli pidemia, Hypertension, Myocardial Infarction ([place]), Osteoarthritis (OA), Renal Disease, Vascular Disorder Additional Past Medical History / Comment(s): NIDDM type II, ckd-pt states doctor watches his renal functions, anemia-pt states told GI bleed but site never found, benign colon polyps, [place] in 2017 d/t anemia, caratid artery disease, PAD, athritis in low back and bilateral hips, past gout R foot, gallstones. Last Myocardial Infarction Date:: 09/2016 History of Any Multi-Drug Resistant Organisms: None Reported Past Surgical History: Coronary Bypass/CABG, Heart Catheterization, Heart Catheterization With Stent, Orthopedic Surgery, Tonsillectomy Additional Past Surgical History / Comment(s): Multiple peripheral revascularization procedures/stents/arthrectomies/ballooning, multiple aortagrams with runoffs, JOIE, PCI with stent, 2005 CABG 3 vessel, EGD, colonoscopies/benign polypectomies, R foot gout, cyst on back drained Past Anesthesia/Blood Transfusion Reactions: No Reported Reaction Date of Last Stent Placement:: 2014 Past Psychological History: No Psychological Hx Reported Smoking Status: Former smoker Past Alcohol Use History: None Reported Past Drug Use History: None Reported - Past Family History Father Family Medical History: Myocardial Infarction ([place]) Additional Family Medical History / Comment(s): Father at the age of 65 yrs from heart problems. He had a [place] in his 30s and had CABG Mother Family Medical History: Pulmonary Embolus General Exam Limitations: no limitations Course Vital Signs 09/27/20 09/27/20 09/27/20 18:34 19:13 19:50 Temperature 98.9 F Pulse Rate 118 H 130 H 137 H Respiratory 22 20 20 Rate Blood Pressure 157/75 139/86 135/86 O2 Sat by Pulse 96 98 98 Oximetry 09/27/20 20:05 Temperature Pulse Rate 130 H Respiratory 20 Rate Blood Pressure 124/75 O2 Sat by Pulse 98 Oximetry Medical Decision Making - Lab Data Result diagrams: 09/27/20 18:53 09/27/20 19:10 Lab Results 09/27/20 09/27/20 09/27/20 Range/Units 18:53 19:10 19:10 WBC 9.9 (3.8-10.6) k/uL RBC 4.77 (4.30-5.90) m/uL Hgb 13.8 (13.0-17.5) gm/dL Hct 42.5 (39.0-53.0) % MCV 89.0 (80.0-100.0) fL MCH 28.8 (25.0-35.0) pg MCHC 32.4 (31.0-37.0) g/dL RDW 15.4 (11.5-15.5) % Plt Count 357 (150-450) k/uL MPV 7.0 Neutrophils % 66 % Lymphocytes % 24 % Monocytes % 7 % Eosinophils % 1 % Basophils % 1 % Neutrophils # 6.6 (1.3-7.7) k/uL Lymphocytes # 2.3 (1.0-4.8) k/uL Monocytes # 0.7 (0-1.0) k/uL Eosinophils # 0.1 (0-0.7) k/uL Basophils # 0.1 (0-0.2) k/uL Hypochromasia Slight Sodium 139 (137-145) mmol/L Potassium 5.3 H (3.5-5.1) mmol/L Chloride 93 L (98-107) mmol/L Carbon Dioxide 28 (22-30) mmol/L Anion Gap 18 mmol/L BUN 25 H (9-20) mg/dL Creatinine 1.43 H (0.66-1.25) mg/dL Est GFR (CKD-EPI)AfAm 57 (>60 ml/min/1.73 sqM) Est GFR (CKD-EPI)NonAf 49 (>60 ml/min/1.73 sqM) Glucose 133 H (74-99) mg/dL Calcium 7.9 L (8.4-10.2) mg/dL Magnesium 2.1 (1.6-2.3) mg/dL Troponin I <0.012 (0.000-0.034) ng/mL TSH 1.700 (0.465-4.680) mIU/L Disposition Clinical Impression: Atrial fibrillation with RVR Disposition: ADMITTED IP TO THIS HOSP Condition: Fair Referrals: Kristel Hall MD [Primary Care Provider] - 1-2 days Decision Time: 20:10
--- NOTE | 2020-09-27 19:18 | XR ---
EXAMINATION TYPE: XR chest 1V portable DATE OF EXAM: 09/27/2020 COMPARISON: 09/15/2020 HISTORY: Weakness TECHNIQUE: FINDINGS: There is coarse interstitial density in the mid and lower lung bradley. There are sternal wi res. Heart size is normal. There is no gross heart failure. I see no definite pleural effusion. There are chest leads. IMPRESSION: Coarse pulmonary density consistent with pulmonary fibrosis unchanged. No heart failure.
[2020-09-27 19:19] LABS: Basophils # (A) 0.1 k/uL (0-0.2); Basophils % (A) 1 %; Eosinophils # (A) 0.1 k/uL (0-0.7); Eosinophils % (A) 1 %; HCT 42.5 % (39.0-53.0); HGB 13.8 gm/dL (13.0-17.5); Hypochromasia Slight; Lymphocytes # (A) 2.3 k/uL (1.0-4.8); Lymphocytes % (A) 24 %; MCH 28.8 pg (25.0-35.0); MCHC 32.4 g/dL (31.0-37.0); Monocytes # (A) 0.7 k/uL (0-1.0); Monocytes % (A) 7 %; Neutrophils # (A) 6.6 k/uL (1.3-7.7); Neutrophils % (A) 66 %; Platelet Count 357 k/uL (150-450); RBC 4.77 m/uL (4.30-5.90); RDW 15.4 % (11.5-15.5); WBC 9.9 k/uL (3.8-10.6)
[2020-09-27] MEDS: METOPROLOL TARTRATE 5 MG/5 ML VIAL IVP SCH ×3 (19:19→20:03)
[2020-09-27 19:34] LABS: Calcium 7.9 mg/dL (8.4-10.2); Magnesium 2.1 mg/dL (1.6-2.3); Potassium 5.3 mmol/L (3.5-5.1)
[2020-09-27] MEDS ORDERED: NALOXONE 0.4 MG/ML 1 ML VIAL IV PRN (20:06)
[2020-09-27] MEDS ORDERED: METOPROLOL TARTRATE 50 MG TAB PO STA (20:07)
[2020-09-27] MEDS ORDERED: RIVAROXABAN 10 MG TAB PO SCH (21:00)
[2020-09-27] MEDS: RIVAROXABAN 2.5 MG TABLET PO SCH (22:52)
[2020-09-28] MEDS: SODIUM CHLORIDE 0.9% 1,000 ML IV SCH ×2 (02:39→21:20)
[2020-09-28 06:55] LABS: Glucose,Whole Blood 126 mg/dL (75-99)
[2020-09-28] MEDS ORDERED: VERAPAMIL 80 MG TAB PO SCH (09:00)
[2020-09-28] MEDS ORDERED: VERAPAMIL 40 MG TAB PO SCH (09:00)
[2020-09-28] MEDS ORDERED: DEXTROSE 5% IN WATER 100 ML with AMIODARONE 150 MG IV ONE ×2 (09:15→09:45)
[2020-09-28] MEDS: RANOLAZINE 500 MG TAB.ER.12H PO SCH ×2 (09:57→21:19)
[2020-09-28] MEDS: FUROSEMIDE 20 MG TAB PO SCH ×2 (09:57→16:02)
[2020-09-28] MEDS: METOPROLOL SUCCINATE (ER) 100 MG TAB.ER.24H PO SCH (09:57)
[2020-09-28] MEDS ORDERED: AMIODARONE 360 MG in DEXTROSE 5% IN WATER 200 ML IV ONE ×2 (10:00)
--- NOTE | 2020-09-28 10:25 | P.CRDCN ---
History of Present Illness Consult date: 09/28/20 History of present illness: CHIEF COMPLAINT: Palpitations HISTORY OF PRESENT ILLNESS: This is a 70-year-old male with a past medical history significant for coronary artery disease with previous CABG, ischemic cardiomyopathy, atrial fibrillation on Xarelto, hypertension, hyperlipidemia, and diabetes mellitus. Patient follows in the office with Dr. eHndricks. We have been asked to see the patient in consultation for palpitations. Patient was diagnosed with Covid on 09/15/2020. Patient was found to be in A. fib with RVR upon presentation to the emergency room. Patient currently remains in A. fib with heart rate in the 120s. Blood pressure 117/76. Patient is on room air with oxygen saturations greater than 92%. Patient is afebrile. DIAGNOSTICS: EKG reveals A. fib with RVR Chest xray consistent with pulmonary fibrosis Laboratory data: WBC 9.9. Hemoglobin 13.8. Platelet count 357. Sodium 139. Potassium 5.3. BUN 25. Creatinine 1.43. Magnesium 2.1. Troponin negative 1. TSH 1.70. Current home cardiac medications include Xarelto 7.5 mg daily, Ranexa 500 mg twice a day, pravastatin 80 mg daily, metoprolol succinate 100 mg daily, lisinopril 5 mg daily, Lasix 20 mg twice a day Echocardiogram completed in June 2020 revealed ejection fraction 40-45%, moderate mitral regurgitation, mild tricuspid regurgitation, moderate pulmonary hypertension REVIEW OF SYSTEMS: Thorough review of systems not completed secondary to limited evaluation/examination and due to Covid19 PHYSICAL EXAM: Thorough physical exam not completed secondary to limited evaluation/examination and due to Covid19 ASSESSMENT: Palpitations Paroxysmal atrial fibrillation with RVR, on anticoagulation with Xarelto Recent diagnosis of Covid 19 Coronary artery disease with previous CABG 3 and PCI Ischemic cardiomyopathy, ejection fraction 40-45% Chronic systolic congestive heart failure, currently euvolemic Valvular heart disease Moderate pulmonary hypertension Hypertension Hyperlipidemia Chronic kidney disease Diabetes mellitus, type II PLAN: No need to repeat echocardiogram as this was performed in June 2020 Resume home cardiac medications Continue current dose of metoprolol Continue Xarelto for anticoagulation Discontinue verapamil secondary to cardiomyopathy Begin Amiodarone bolus and drip per protocol Hold lisinopril today secondary to hyperkalemia Further recommendations pending patient's course Nurse practitioner note has been reviewed by physician. Signing provider agrees with the documented findings, assessment, and plan of care. Past Medical History Past Medical History: Atrial Fibrillation, Coronary Artery Disease (CAD), Chest Pain / Angina, Heart Failure, Diabetes Mellitus, GERD/Reflux, GI Bleed, Hyperlipidemia, Hypertension, Myocardial Infarction ([place]), Osteoarthritis (OA), Renal Disease, Vascular Disorder Additional Past Medical History / Comment(s): NIDDM type II, ckd-pt states doctor watches his renal functions, anemia-pt states told GI bleed but site never found, benign colon polyps, [place] in 2017 d/t anemia, caratid artery disease, PAD, athritis in low back and bilateral hips, past gout R foot, gallstones. Last Myocardial Infarction Date:: 09/2016 History of Any Multi-Drug Resistant Organisms: None Reported Past Surgical History: Coronary Bypass/CABG, Heart Catheterization, Heart Catheterization With Stent, Orthopedic Surgery, Tonsillectomy Additional Past Surgical History / Comment(s): Multiple peripheral revascularization procedures/stents/arthrectomies/ballooning, multiple aortagr ams with runoffs, JOIE, PCI with stent, 2005 CABG 3 vessel, EGD, colonoscopies/benign polypectomies, R foot gout, cyst on back drained Past Anesthesia/Blood Transfusion Reactions: No Reported Reaction Date of Last Stent Placement:: 2014 Past Psychological History: No Psychological Hx Reported Additional Psychological History / Comment(s): Pt resides with his spouse. He is independent. Smoking Status: Former smoker Past Alcohol Use History: None Reported Additional Past Alcohol Use History / Comment(s): Pt states he started smoking about 1966, 2 PPD, quit in 2005. Pt has not drank alcohol in 3 yrs, prior to that he drank beer. Past Drug Use History: None Reported - Past Family History Father Family Medical History: Myocardial Infarction ([place]) Additional Family Medical History / Comment(s): Father at the age of 65 yrs from heart problems. He had a [place] in his 30s and had CABG Mother Family Medical History: Pulmonary Embolus Medications and Allergies Home Medications Medication Instructions Recorded Confirmed Type Allopurinol [Zyloprim] 100 mg PO DAILY 03/16/15 09/27/20 History [place]-3 Fatty Acids/Fish Oil [Fish 1 cap PO BID 03/16/15 09/27/20 History Oil 1,000 mg Softgel] Nitroglycerin Sl Tabs [Nitrostat] 0.4 mg SL Q5M PRN 05/12/16 09/27/20 History Omeprazole [PriLOSEC] 20 mg PO BID PRN 05/12/16 09/27/20 History Cyanocobalamin [Vitamin B-12 1,000 mcg IM Q30D 05/26/16 09/27/20 History Injection] Magnesium Oxide [Mag-Ox] 400 mg PO DAILY@1200 08/19/16 09/27/20 History Metoprolol Succinate (ER) [Toprol 100 mg PO DAILY 08/19/16 09/27/20 History XL] Montelukast [Singulair] 10 mg PO DAILY 08/31/17 09/27/20 History Ranolazine [Ranexa] 500 mg PO BID 08/31/17 09/27/20 History Pravastatin Sodium 80 mg PO HS 01/15/19 09/27/20 History Cbd Oil 1500mg 1,500 mg PO DAILY PRN 07/02/20 09/27/20 History Furosemide [Lasix] 20 mg PO BID 07/02/20 09/27/20 History Lisinopril [Zestril] 5 mg PO DAILY@1200 07/02/20 09/27/20 History Repaglinide [Prandin] 0.5 mg PO AC-SUPPER 07/02/20 09/27/20 History Rivaroxaban [Xarelto] 7.5 mg PO HS 07/02/20 09/27/20 History Verapamil [Isoptin] 40 mg PO BID 07/02/20 09/27/20 History glipiZIDE XL [Glucotrol XL] 10 mg PO AC-BRKFST 07/02/20 09/27/20 History Pantoprazole [Protonix] 40 mg PO AC-BRKFST tablet. 07/06/20 09/27/20 Rx Empagliflozin/Linagliptin 1 tab PO DAILY 09/15/20 09/27/20 History [Glyxambi 25 mg-5 mg Tablet] Ferrous Sulfate [Iron (65 MG 325 mg PO HS 09/15/20 09/27/20 History Elemental)] Allergies Allergy/AdvReac Type Severity Reaction Status Date / Time Sulfa (Sulfonamide Allergy Rash/Hives Verified 09/27/20 20:19 Antibiotics) sulfamethoxazole Allergy Rash/Hives Verified 09/27/20 20:19 [From Bactrim] trimethoprim [From Bactrim] Allergy Rash/Hives Verified 09/27/20 20:19 Physical Exam Vitals: Vital Signs Temp Pulse Pulse Resp BP BP BP 09/28/20 09:50 129 H 14 138/82 09/28/20 07:54 97.7 F 125 H 14 118/79 09/28/20 06:06 118 H 09/28/20 02:00 98 F 108 H 20 126/66 09/27/20 22:24 97.5 F L 118 H 18 115/76 09/27/20 21:05 98.1 F 114 H 20 09/27/20 20:38 113 H 20 128/70 09/27/20 20:21 118 H 20 09/27/20 20:05 130 H 20 124/75 09/27/20 19:50 137 H 20 135/86 09/27/20 19:13 130 H 20 139/86 09/27/20 18:34 98.9 F 118 H 22 157/75 Pulse Ox 09/28/20 09:50 96 09/28/20 07:54 95 09/28/20 06:06 09/28/20 02:00 94 L 09/27/20 22:24 94 L 09/27/20 21:05 99 09/27/20 20:38 97 09/27/20 20:21 99 09/27/20 20:05 98 09/27/20 19:50 98 09/27/20 19:13 98 09/27/20 18:34 96 Intake and Output 09/27/20 09/28/20 09/28/20 22:59 06:59 14:59 Other: # Voids 2 Weight 108.862 kg Results 09/27/20 18:53 09/27/20 19:10 Cardiac Enzymes 09/27/20 Range/Units 19:10 Troponin I <0.012 (0.000-0.034) ng/mL CBC 09/27/20 Range/Units 18:53 WBC 9.9 (3.8-10.6) k/uL RBC 4.77 (4.30-5.90) m/uL Hgb 13.8 (13.0-17.5) gm/dL Hct 42.5 (39.0-53.0) % Plt Count 357 (150-450) k/uL Comprehensive Metabolic Panel 09/27/20 Range/Units 19:10 Sodium 139 (137-145) mmol/L Potassium 5.3 H (3.5-5.1) mmol/L Chloride 93 L (98-107) mmol/L Carbon Dioxide 28 (22-30) mmol/L BUN 25 H (9-20) mg/dL Creatinine 1.43 H (0.66-1.25) mg/dL Glucose 133 H (74-99) mg/dL Calcium 7.9 L (8.4-10.2) mg/dL Current Medications Generic Name Dose Route Start Last Admin Trade Name Freq PRN Reason Stop Dose Admin Furosemide 20 mg 09/28/20 09:00 09/28/20 09:57 Furosemide 20 Mg Tab PO 20 mg 0900,1700 CHERELLE Administration Sodium Chloride 1,000 mls @ 20 mls/hr 09/27/20 20:15 09/28/20 02:39 Saline 0.9% IV Not Given .Q24H CHERELLE Amiodarone HCl 360 mg/ 200 mls @ 33.333 mls/hr 09/28/20 10:00 09/28/20 09:58 Dextrose/Water IV 09/28/20 15:59 1 mg/min .Q6H ONE 33.333 mls/hr Administration Protocol 1 MG/MIN Amiodarone HCl 450 mg/ 250 mls @ 16.667 mls/hr 09/28/20 16:00 Dextrose/Water IV 09/29/20 09:59 .Q15H CHERELLE Protocol 0.5 MG/MIN Lisinopril 5 mg 09/28/20 12:00 Lisinopril 5 Mg Tab PO DAILY@1200 [facility] Metoprolol Succinate 100 mg 09/28/20 09:00 09/28/20 09:57 Metoprolol Succinate (Er) 100 Mg Tab.Er.24h PO 100 mg DAILY CHERELLE Administration Naloxone HCl 0.2 mg 09/27/20 20:06 Naloxone 0.4 Mg/Ml 1 Ml Vial IV Q2M PRN Opioid Reversal Pravastatin Sodium 80 mg 09/28/20 21:00 Pravastatin Sodium 80 Mg Tab PO HS CHERELLE Ranolazine 500 mg 09/28/20 09:00 09/28/20 09:57 Ranolazine 500 Mg Tab.Er.12h PO 500 mg BID CHERELLE Administration Rivaroxaban 7.5 mg 09/27/20 22:29 09/27/20 22:52 Rivaroxaban 2.5 Mg Tablet PO 7.5 mg HS [facility] Administration Intake and Output 09/27/20 09/28/20 09/28/20 22:59 06:59 14:59 Other: # Voids 2 Weight 108.862 kg 09/27/20 18:53 09/27/20 19:10
[2020-09-28] MEDS ORDERED: PANTOPRAZOLE 40 MG TABLET PO PRN (10:32)
[2020-09-28] MEDS: LINAGLIPTIN PO SCH (11:43)
[2020-09-28] MEDS: EMPAGLIFLOZIN PO SCH (11:43)
[2020-09-28] MEDS: [UNRECOGNIZED DRUG - OTHER] PO SCH (11:43)
[2020-09-28] MEDS ORDERED: lisinopriL 5 MG TAB PO SCH (12:00)
[2020-09-28 12:05] LABS: Glucose,Whole Blood 247 mg/dL (75-99)
[2020-09-28] MEDS: MAGNESIUM OXIDE 400 MG TAB PO SCH (13:06)
[2020-09-28] MEDS: allopurinoL 100 MG TAB PO SCH (13:06)
[2020-09-28] MEDS: AMIODARONE 450 MG in DEXTROSE 5% IN WATER 250 ML IV SCH ×2 (16:02)
[2020-09-28 17:00] LABS: Glucose,Whole Blood 214 mg/dL (75-99)
[2020-09-28] MEDS: REPAGLINIDE 1 MG TAB PO SCH (17:41)
[2020-09-28] MEDS: INSULIN ASPART (NovoLOG) 100 UNIT/ML VIAL SQ SCH ×2 (17:43→21:19)
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
[2020-09-28 20:32] LABS: Glucose,Whole Blood 232 mg/dL (75-99)
[2020-09-28] MEDS: FERROUS SULFATE 325 MG TAB PO SCH (21:19)
[2020-09-28] MEDS: PRAVASTATIN SODIUM 80 MG TAB PO SCH (21:32)
[2020-09-29 06:00] LABS: Glucose,Whole Blood 186 mg/dL (75-99)
[2020-09-29] MEDS: INSULIN ASPART (NovoLOG) 100 UNIT/ML VIAL SQ SCH ×4 (06:30→21:08)
[2020-09-29] MEDS: AMIODARONE 450 MG in DEXTROSE 5% IN WATER 250 ML IV SCH ×2 (06:31)
[2020-09-29] MEDS: METOPROLOL SUCCINATE (ER) 100 MG TAB.ER.24H PO SCH (08:18)
[2020-09-29] MEDS: allopurinoL 100 MG TAB PO SCH (08:18)
[2020-09-29] MEDS: FUROSEMIDE 20 MG TAB PO SCH ×2 (08:18→16:44)
[2020-09-29] MEDS: glipiZIDE 5 MG TAB PO SCH ×2 (08:19→21:05)
[2020-09-29] MEDS: RANOLAZINE 500 MG TAB.ER.12H PO SCH ×2 (08:19→21:05)
[2020-09-29] MEDS: MONTELUKAST 10 MG TAB PO SCH (08:19)
[2020-09-29] MEDS: LINAGLIPTIN PO SCH (08:20)
[2020-09-29] MEDS: [UNRECOGNIZED DRUG - OTHER] PO SCH (08:20)
[2020-09-29] MEDS: EMPAGLIFLOZIN PO SCH (08:20)
[2020-09-29 09:55] LABS: Basophils # (A) 0.1 k/uL (0-0.2); Basophils % (A) 1 %; Eosinophils # (A) 0.1 k/uL (0-0.7); Eosinophils % (A) 1 %; HGB 13.1 gm/dL (13.0-17.5); Hypochromasia Slight; Lymphocytes # (A) 1.4 k/uL (1.0-4.8); Lymphocytes % (A) 16 %; MCH 28.6 pg (25.0-35.0); MCV 89.4 fL (80.0-100.0); Mean Platelet Volume 6.8; Monocytes # (A) 0.6 k/uL (0-1.0); Monocytes % (A) 7 %; Neutrophils # (A) 6.3 k/uL (1.3-7.7); Neutrophils % (A) 72 %; Platelet Count 277 k/uL (150-450); RBC 4.59 m/uL (4.30-5.90); RDW 15.4 % (11.5-15.5); WBC 8.7 k/uL (3.8-10.6)
[2020-09-29 10:10] LABS: Albumin 3.5 g/dL (3.5-5.0); Calcium 8.8 mg/dL (8.4-10.2); Potassium 4.8 mmol/L (3.5-5.1); Total Bilirubin 0.4 mg/dL (0.2-1.3); Total Protein 6.6 g/dL (6.3-8.2)
[2020-09-29] MEDS: AMIODARONE 200 MG TAB PO SCH ×2 (10:41→21:05)
[2020-09-29 11:54] LABS: Glucose,Whole Blood 147 mg/dL (75-99)
[2020-09-29] MEDS: MAGNESIUM OXIDE 400 MG TAB PO SCH (12:25)
[2020-09-29] MEDS: METOPROLOL SUCCINATE (ER) 50 MG TAB.ER.24H PO SCH (12:25)
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
--- NOTE | 2020-09-29 13:23 | P.PN ---
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 He follows in the office with Dr. Hendricks. He is seen and evaluated from the door due to presumptive Covid 19 to prevent spread of infection. His heart rates continue to be elevated on current regimen. Blood pressure 138/103 heart rate 114 afebrile and maintaining oxygen saturation on room air. Laboratory data reviewed, CBC unremarkable, sodium 133, potassium 4.8, creatinine 1.41. GENERAL: Well-appearing, well-nourished and in no acute distress. Limited physical assessment performed due to Covid 19. ASSESSMENT Paroxysmal atrial fibrillation with rapid ventricular rate maintained on Xarelto Recent diagnosis of Covid 19 Coronary artery disease status post bypass grafting, three-vessel bypass and subsequent PCI Ischemic cardiomyopathy, EF 40-45% Chronic systolic heart failure, clinically euvolemic Valvular heart disease Moderate pulmonary hypertension Hypertension Dyslipidemia Chronic kidney disease Diabetes mellitus PLAN Add additional dose of Toprol 50 mg at noontime. Continue Xarelto for thromboembolic protection. Transition to oral amiodarone 200 mg twice a day. Further recommendations to follow based upon clinical course. Nurse Practitioner note has been reviewed, I agree with a documented findings and plan of care. Patient was seen and examined. Objective - Vital Signs Vital signs: Vital Signs Temp 97 F L 09/29/20 08:00 Pulse 109 H 09/29/20 11:39 Resp 20 09/29/20 11:39 BP 138/103 09/29/20 11:39 Pulse Ox 93 L 09/29/20 11:39 Intake & Output 09/28/20 09/29/20 09/29/20 18:59 06:59 18:59 Intake Total 100 241.394 Balance 100 241.394 Intake: Intake, IV Titration 241.394 Amount Amiodarone 450 mg In 241.394 Dextrose 5% in Water 250 ml @ 0.5 MG/MIN 16.667 mls/hr IV .Q15H CHERELLE Rx#: [id number] Oral 100 Other: Voiding Method Toilet # Voids 1 4 - Labs CBC & Chem 7: 09/29/20 09:26 02/02/21 09:26 Labs: Abnormal Lab Results - Last 24 Hours (Table) 09/28/20 09/28/20 09/29/20 Range/Units 16:58 20:30 05:59 Sodium (137-145) mmol/L Chloride (98-107) mmol/L BUN (9-20) mg/dL Creatinine (0.66-1.25) mg/dL Glucose (74-99) mg/dL POC Glucose (mg/dL) 214 H 232 H 186 H (75-99) mg/dL AST (17-59) U/L 09/29/20 09/29/20 Range/Units 09:26 11:53 Sodium 133 L (137-145) mmol/L Chloride 97 L (98-107) mmol/L BUN 26 H (9-20) mg/dL Creatinine 1.41 H (0.66-1.25) mg/dL Glucose 207 H (74-99) mg/dL POC Glucose (mg/dL) 147 H (75-99) mg/dL AST 16 L (17-59) U/L
[2020-09-29 16:48] LABS: Glucose,Whole Blood 235 mg/dL (75-99)
[2020-09-29] MEDS: REPAGLINIDE 1 MG TAB PO SCH (17:14)
[2020-09-29 20:19] LABS: Glucose,Whole Blood 162 mg/dL (75-99)
[2020-09-29] MEDS: FERROUS SULFATE 325 MG TAB PO SCH (21:05)
[2020-09-29] MEDS: RIVAROXABAN 2.5 MG TABLET PO SCH (21:06)
[2020-09-29] MEDS: SODIUM CHLORIDE 0.9% 1,000 ML IV SCH (21:06)
[2020-09-29] MEDS: PRAVASTATIN SODIUM 80 MG TAB PO SCH (21:07)
[2020-09-30 06:23] LABS: Glucose,Whole Blood 148 mg/dL (75-99)
[2020-09-30] MEDS: INSULIN ASPART (NovoLOG) 100 UNIT/ML VIAL SQ SCH ×2 (06:38→11:57)
[2020-09-30 08:30] LABS: Calcium 9.1 mg/dL (8.4-10.2); Potassium 4.6 mmol/L (3.5-5.1)
[2020-09-30] MEDS: allopurinoL 100 MG TAB PO SCH (08:34)
[2020-09-30] MEDS: METOPROLOL SUCCINATE (ER) 100 MG TAB.ER.24H PO SCH (08:34)
[2020-09-30] MEDS: RANOLAZINE 500 MG TAB.ER.12H PO SCH (08:34)
[2020-09-30] MEDS: FUROSEMIDE 20 MG TAB PO SCH (08:34)
[2020-09-30] MEDS: glipiZIDE 5 MG TAB PO SCH (08:34)
[2020-09-30] MEDS: AMIODARONE 200 MG TAB PO SCH (08:34)
[2020-09-30] MEDS: MONTELUKAST 10 MG TAB PO SCH (08:34)
[2020-09-30] MEDS: EMPAGLIFLOZIN PO SCH (08:35)
[2020-09-30] MEDS: [UNRECOGNIZED DRUG - OTHER] PO SCH (08:35)
[2020-09-30] MEDS: LINAGLIPTIN PO SCH (08:35)
[2020-09-30 11:36] VITALS: BP 136/62; PULSE 71; RESP 18; TEMP 97
[2020-09-30] MEDS: METOPROLOL SUCCINATE (ER) 50 MG TAB.ER.24H PO SCH (11:36)
[2020-09-30] MEDS: MAGNESIUM OXIDE 400 MG TAB PO SCH (11:36)
[2020-09-30 11:44] LABS: Glucose,Whole Blood 220 mg/dL (75-99)
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
--- NOTE | 2020-09-30 13:58 | P.PN ---
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 He follows in the office with Dr. Hendricks. He is seen and evaluated from the door due to presumptive Covid 19 to prevent spread of infection. He has converted to SR with rates in the 70s on cu rrent medical regimen. Blood pressure 136/62. Laboratory data reviewed, sodium 133, potassium 4.6 and creatinine 1.45. GENERAL: Well-appearing, well-nourished and in no acute distress. Limited physical assessment performed due to Covid 19. ASSESSMENT Paroxysmal atrial fibrillation with rapid ventricular rate maintained on Xarelto COVID 19 Coronary artery disease status post bypass grafting, three-vessel bypass and subsequent PCI Ischemic cardiomyopathy, EF 40-45% Chronic systolic heart failure, clinically euvolemic Valvular heart disease Moderate pulmonary hypertension Hypertension Dyslipidemia Chronic kidney disease Diabetes mellitus PLAN Stable on current regimen. Continue amiodarone 200 mg twice a day for 30 days and follow-up with Dr. Hendricks for further recommendations regarding ongoing continuation. Nurse Practitioner note has been reviewed, I agree with a documented findings a nd plan of care. Patient was seen and examined. Objective - Vital Signs Vital signs: Vital Signs Temp 97 F L 09/30/20 11:33 Pulse 71 09/30/20 11:33 Resp 18 09/30/20 11:33 BP 136/62 09/30/20 11:33 Pulse Ox 93 L 09/30/20 08:00 Intake & Output 09/29/20 09/30/20 09/30/20 18:59 06:59 18:59 Intake Total 720 480 Balance 720 480 Weight 104.5 kg Intake: Oral 720 480 Other: Voiding Method Toilet Toilet # Voids 2 2 1 - Labs CBC & Chem 7: 09/29/20 09:26 09/30/20 07:28 Labs: Abnormal Lab Results - Last 24 Hours (Table) 09/29/20 09/29/20 09/30/20 Range/Units 16:47 20:15 06:21 Sodium (137-145) mmol/L Chloride (98-107) mmol/L BUN (9-20) mg/dL Creatinine (0.66-1.25) mg/dL Glucose (74-99) mg/dL POC Glucose (mg/dL) 235 H 162 H 148 H (75-99) mg/dL 09/30/20 09/30/20 Range/Units 07:28 11:42 Sodium 133 L (137-145) mmol/L Chloride 97 L (98-107) mmol/L BUN 27 H (9-20) mg/dL Creatinine 1.45 H (0.66-1.25) mg/dL Glucose 144 H (74-99) mg/dL POC Glucose (mg/dL) 220 H (75-99) mg/dL
== END 2020-09-30 14:00 | disposition home or self-care (01) | DRG 309 ==
LOC: EC 18:29 → 6NMEDSUR 20:06 → OBSVTOIN 09-28 15:21 → 3SCARD 09-28 18:10
PROVIDERS: ADMIT Internal Medicine; ATTEND Internal Medicine
DX: I48.0 Paroxysmal atrial fibrillation (principal); I50.22 Chronic systolic (congestive) heart failure; I13.0 Hypertensive heart and chronic kidney disease with heart failure and stage 1 through stage 4 chronic kidney disease, or unspecified chronic kidney disease; I25.10 Atherosclerotic heart disease of native coronary artery without angina pectoris; E11.22 Type 2 diabetes mellitus with diabetic chronic kidney disease; E78.5 Hyperlipidemia, unspecified; F17.200 Nicotine dependence, unspecified, uncomplicated; I27.20 Pulmonary hypertension, unspecified; J84.10 Pulmonary fibrosis, unspecified; N18.9 Chronic kidney disease, unspecified; J00 Acute nasopharyngitis [common cold]; Z86.16 Personal history of COVID-19; M19.90 Unspecified osteoarthritis, unspecified site; I25.5 Ischemic cardiomyopathy; K21.9 Gastro-esophageal reflux disease without esophagitis; I25.2 Old myocardial infarction; Z79.899 Other long term (current) drug therapy; Z95.5 Presence of coronary angioplasty implant and graft; Z95.1 Presence of aortocoronary bypass graft; Z87.19 Personal history of other diseases of the digestive system; Z82.49 Family history of ischemic heart disease and other diseases of the circulatory system; Z79.84 Long term (current) use of oral hypoglycemic drugs; Z79.01 Long term (current) use of anticoagulants; Z88.2 Allergy status to sulfonamides; Z88.8 Allergy status to other drugs, medicaments and biological substances; Z98.890 Other specified postprocedural states
CPT/HCPCS: 36415; 71045; 80048; 80053; 83735; 84443; 84484; 85025; 93005; 94760; 96374; 96376; 99285

== ENCOUNTER 2021-04-26 07:12 | Day surgery (SDC) | payer MEDICARE ==
[2021-04-21 13:38] VITALS: BMI 35.4
[~2021-04-26 07:12] MED LIST changes: -ALPRAZolam 0.25 MG TAB PO PRN; -ALPRAZolam 0.5 MG TAB PO PRN; +ASPIRIN 325 MG TAB PO PRN; -ASPIRIN 325 MG TAB PO STA; -ATORVASTATIN 80 MG TAB PO STA; -NITROGLYCERIN SL TABS 0.4 MG TAB SUBLINGUAL PRN; +SODIUM CHLORIDE 0.9% 1,000 ML in EMPTY BAG 1 BAG IV ONE
[2021-04-26 07:42] VITALS: RESP 16; TEMP 98.1
[2021-04-26] MEDS ORDERED: SODIUM CHLORIDE 0.9% 1,000 ML IV ONE (07:42)
[2021-04-26 07:43] LABS: Glucose,Whole Blood 216 mg/dL (75-99)
[2021-04-26] MEDS ORDERED: INSULIN ASPART (NovoLOG) 100 UNIT/ML VIAL SQ ONE (07:49)
[2021-04-26 07:57] LABS: Anisocytosis Slight; Basophils # (A) 0.1 k/uL (0-0.2); Basophils % (A) 1 %; Eosinophils # (A) 0.2 k/uL (0-0.7); Eosinophils % (A) 2 %; HCT 46.7 % (39.0-53.0); HGB 15.2 gm/dL (13.0-17.5); Hypochromasia Slight; Lymphocytes # (A) 2.5 k/uL (1.0-4.8); Lymphocytes % (A) 28 %; MCH 29.8 pg (25.0-35.0); MCHC 32.6 g/dL (31.0-37.0); MCV 91.6 fL (80.0-100.0); Mean Platelet Volume 7.8; Monocytes # (A) 0.5 k/uL (0-1.0); Monocytes % (A) 6 %; Neutrophils # (A) 5.5 k/uL (1.3-7.7); Neutrophils % (A) 62 %; Platelet Count 208 k/uL (150-450); Poikilocytosis Slight; RDW 16.8 % (11.5-15.5); WBC 8.9 k/uL (3.8-10.6)
[2021-04-26 08:09] LABS: Calcium 9.2 mg/dL (8.4-10.2); Potassium 4.3 mmol/L (3.5-5.1)
[2021-04-26] MEDS ORDERED: MIDAZOLAM 2 MG/2 ML VIAL IV ONE (08:41)
[2021-04-26] MEDS ORDERED: LIDOCAINE 1% INJ 10MG/ML (20 ML MDV) SQ ONE (08:53)
[2021-04-26] MEDS ORDERED: HYDROmorphone 0.5 MG/0.5 ML SYRINGE IVP ONE (09:09)
[2021-04-26] MEDS ORDERED: IOPAMIDOL-250 100ML BTL INTRAARTER ONE (09:13)
[2021-04-26] MEDS ORDERED: SODIUM CHLORIDE 0.9% 1,000 ML IV SCH (09:30)
--- NOTE | 2021-04-26 10:07 | IR ---
EXAMINATION TYPE: IR angio abdominal w runoff DATE OF EXAM: 04/26/2021 CLINICAL HISTORY: PVD. TECHNIQUE: Fluoroscopy. COMPARISON: None. FINDINGS: Fluoroscopic guidance was provided during abdominal angiogram with lower extremity runoff procedure performed by Dr. Porras. A total of 78 seconds of fluoroscopic time was utilized during the procedure and 119 spot images are acquired. Please refer to operative note for further details if n ecessary. IMPRESSION: As Above.
[2021-04-26] MEDS ORDERED: INSULIN ASPART (NovoLOG) 100 UNIT/ML VIAL SQ SCH (12:30)
[2021-04-26 14:35] VITALS: BP 162/67; PULSE 62
--- NOTE | 2021-04-26 21:53 | AN ---
ANGIOGRAPHY REPORT DATE OF SERVICE: 04/26/2021 PERFORMING PHYSICIAN: Nahid Porras M.D. PROCEDURE PERFORMED: 1. Abdominal aortogram. 2. Bilateral lower extremity runoff. 3. Ultrasound-guided access of the left common femoral artery. INDICATION: This is a 71-year-old male patient with history of peripheral arterial disease and prior revascularization as well as hypertension and dyslipidemia who was experiencing right leg intermittent claudication interfering with his daily activities. On examination he did have diminished popliteal pulse on the right side and pedal pulse on the right side as well. APPROACH: Left common femoral artery. COMPLICATIONS: None. LEVEL OF SEDATION: Moderate, with sedation length of 21 minutes. PROCEDURE DESCRIPTION: After obtaining informed consent, the patient was brought to the cardiac labor relations representative. The left common femoral artery was cannulated using micropuncture technique under ultrasound guidance. The micropuncture wire passed easily. Then I placed a 5-[place]ogolese sheath in the left common femoral artery. After that I did an abdominal aortogram and bilateral lower extremity runoff using a 5- [place] pigtail catheter which was initially placed at the level of the renal arteries, then it was pulled into above the bifurcation of the aorta to right and left common femoral arteries. The procedure was performed using power injection and subtraction. The procedure was completed without any complication. SELECTIVE PERIPHERAL ANGIOGRAM: 1. The aorta appeared to have mild disease only. 2. Common iliac arteries. The right common iliac artery appeared to have mild disease only and the left common iliac artery appeared to be stented and the stent is patent. 3. Internal iliac arteries. Both appeared to be patent. 4. External iliac arteries. The right external iliac artery appeared to have mild disease only and the left external iliac artery appeared to be angiographically normal. 5. Common femoral arteries. The right common femoral artery appeared to have mild to moderate nonobstructive disease and the left common femoral artery appeared to be normal. 6. Profundae. Both profundae are patent. 7. The right SFA. The right SFA right by the takeoff of profunda has a tight lesion that appeared to be in the range of 99%. The left SFA is stented and the stent is patent. Please note that the mid SFA on the right side has disease that appeared to be in the range of 50%, on the left side about 80% to 90%. 8. Popliteals. Both popliteals appeared to be angiographically normal. 9. Below the knee. There is 2-vessel runoff below the knee on the right side with anterior tibial and posterior tibial and 3 vessels on the left side. Please note that the distal popliteal has a lesion on the right side that appeared to be in the range of 90% to 95%. CONCLUSION: 1. Mild to moderate bilateral aortoiliac disease. 2. Severe bilateral SFA disease that seems to be worse on the right side, not the left side. POSTPROCEDURE MANAGEMENT: BURLING AND JOINING SUPERVISOR of the right and the left SFA to be done as a staged procedure. MMODL / IJN: [id number] /
== END 2021-04-26 14:54 | disposition home or self-care (01) ==
LOC: CATHCVL 07:12
PROVIDERS: ATTEND Internal Medicine Interventional Cardiology
DX: I73.9 Peripheral vascular disease, unspecified (principal); I70.8 Atherosclerosis of other arteries; E11.9 Type 2 diabetes mellitus without complications; I10 Essential (primary) hypertension; E78.5 Hyperlipidemia, unspecified; Z82.49 Family history of ischemic heart disease and other diseases of the circulatory system; F17.210 Nicotine dependence, cigarettes, uncomplicated
CPT/HCPCS: 36200; 75625; 75716; 76937; 80048; 85025; C1769 ×4; C1894; J2250; J2001; J1170; Q9966

== ENCOUNTER 2021-05-12 08:39 | Day surgery (SDC) | payer MEDICARE ==
[2021-05-07 12:50] VITALS: BMI 35.4
[~2021-05-12 08:39] MED LIST changes: +ALPRAZolam 0.25 MG TAB PO PRN; +ALPRAZolam 0.5 MG TAB PO PRN; +SODIUM CHLORIDE 0.9% 500 ML 500 ML with niCARdipine 6.25 MG, NITROGLYCERIN-D5W PMX 0.05... IV ONE
[2021-05-12 09:32] LABS: Glucose,Whole Blood 229 mg/dL (75-99)
[2021-05-12] MEDS: INSULIN ASPART (NovoLOG) 100 UNIT/ML VIAL SQ SCH ×3 (09:45→21:01)
[2021-05-12 09:57] LABS: Calcium 9.2 mg/dL (8.4-10.2); Potassium 4.5 mmol/L (3.5-5.1)
[2021-05-12 10:29] LABS: Basophils # (A) 0.1 k/uL (0-0.2); Basophils % (A) 1 %; Eosinophils # (A) 0.1 k/uL (0-0.7); Eosinophils % (A) 2 %; HCT 43.6 % (39.0-53.0); HGB 14.9 gm/dL (13.0-17.5); Lymphocytes # (A) 1.8 k/uL (1.0-4.8); Lymphocytes % (A) 23 %; MCH 29.6 pg (25.0-35.0); MCHC 34.2 g/dL (31.0-37.0); MCV 86.5 fL (80.0-100.0); Mean Platelet Volume 7.8; Monocytes # (A) 0.4 k/uL (0-1.0); Monocytes % (A) 5 %; Neutrophils # (A) 5.3 k/uL (1.3-7.7); Neutrophils % (A) 67 %; Platelet Count 214 k/uL (150-450); RBC 5.04 m/uL (4.30-5.90); RDW 15.6 % (11.5-15.5); WBC 7.8 k/uL (3.8-10.6)
[2021-05-12] MEDS: MIDAZOLAM 2 MG/2 ML VIAL IV ONE ×2 (11:33→12:08)
[2021-05-12] MEDS ORDERED: HYDROmorphone 1 MG/ML 1 ML SYRINGE IVP ONE (11:33)
[2021-05-12] MEDS ORDERED: LIDOCAINE 1% INJ 10MG/ML (20 ML MDV) SQ ONE ×2 (11:40→11:42)
[2021-05-12] MEDS ORDERED: SODIUM CHLORIDE 0.9% 500 ML 500 ML with niCARdipine 6.25 MG, NITROGLYCERIN-D5W PMX 0.05... IV ONE ×4 (12:00)
[2021-05-12] MEDS ORDERED: IOPAMIDOL-250 100ML BTL INTRAARTER ONE (13:08)
--- NOTE | 2021-05-12 13:18 | IR ---
EXAMINATION TYPE: IR angio lower extremity RT DATE OF EXAM: 05/12/2021 COMPARISON: NONE HISTORY: Fluoroscopy time. Fluoroscopy was provided to the referring clinician.
--- NOTE | 2021-05-12 13:24 | PCN ---
PROCEDURE NOTE DATE OF SERVICE: 05/12/2021 PERFORMING PHYSICIAN: Nahid Porras MD PROCEDURE PERFORMED: 1. Right lower extremity angiogram. 2. Selective left common femoral artery angiogram. 3. Ultrasound-guided access of the left common femoral artery. INDICATION: This is a 71-year-old gentleman with peripheral arterial disease and prior angioplasty of the SFA in the past who was experiencing severe right lower extremity intermittent claudication. He states for the last few weeks the pain has gotten worse. He underwent an angiogram a few weeks ago and that revealed critical disease involving the proximal right SFA and severe disease involving the right tibioperoneal trunk. He was brought today to undergo an intervention on the right SFA. APPROACH: Left common femoral artery. COMPLICATIONS: None. LEVEL OF SEDATION: Moderate, with sedation length of 64 minutes. PROCEDURE DESCRIPTION: After obtaining informed consent, the patient was brought to the cardiac vp lab. The left common femoral artery was cannulated using micropuncture technique under ultrasound guidance. The micropuncture wire passed easily. Then I placed a 6-[place] 70 cm sheath at the left common femoral artery after I pre-dilated the left common femoral artery using 6-[place] and subsequently 7-[place] dilators. I did go up and over using an IM catheter with an 0.035 stiff Glidewire. Subsequently I did advance the 70 cm sheath over the 0.035 stiff Glidewire as well as IM catheter to the proximal right common femoral artery. Before I started, I did right lower extremity angiogram and that showed sluggish flow below the knee on the right side with only opacification of the AT and PT. The lesion, which was about 70% to 80% in the right tibioperoneal trunk, has progressed to 100% and seems to be hazy and seems to be consistent with a thrombus. Beside that, we found out that the lesion in the right SFA is actually a lesion in the right common femoral artery with sluggish flow in the profunda, and the lesion is very eccentric and calcified and appeared to be in the range of 99.9%. We consulted the surgeon via phone. We consulted Dr. Meeks and he received a picture of the lesions both in the right common femoral artery as well as in the right tibioperoneal trunk. Because we were able to obtain a Doppler signal in the right foot and because the right foot was warm, we decided to stop. The patient will undergo right common femoral artery endarterectomy and possibly right profunda endarterectomy with possible WAISTLINE JOINER OVERLOCK of the right tibioperoneal trunk at that point. The procedure at that point was completed without any complication. POSTPROCEDURE MANAGEMENT: 1. Continue the current medical regimen. 2. The patient is in the process of seeing a surgeon in the office for right common femoral artery endarterectomy. 3. Follow up with the patient. MMODL / IJN: [id number] /
[2021-05-12 17:11] LABS: Glucose,Whole Blood 205 mg/dL (75-99)
[2021-05-12 17:51] VITALS: RESP 18
[2021-05-12 20:36] LABS: Glucose,Whole Blood 220 mg/dL (75-99)
[2021-05-12 21:30] VITALS: BP 129/65; TEMP 97.8
[2021-05-12 21:38] VITALS: PULSE 65
== END 2021-05-12 22:14 | disposition home or self-care (01) ==
LOC: CATHCVL 08:39 → 6NMEDSUR 15:06 → CATHCVL 22:14
PROVIDERS: ATTEND Internal Medicine Interventional Cardiology
DX: I73.9 Peripheral vascular disease, unspecified (principal)
CPT/HCPCS: 36245; 75710; 76937; 85347; 80048; 85025; 87635; C1894 ×3; C1769 ×5; J2250; J2001; J1170; J1644; Q9966

== ENCOUNTER → 2021-05-20 | Outpatient (CLI) | payer MEDICARE ==
[2021-05-20 11:05] LABS: Partial Thromboplastin Time 22.1 sec (22.0-30.0); Prothrombin Time 10.5 sec (9.0-12.0)
[2021-05-20 11:12] LABS: Albumin 4.3 g/dL (3.5-5.0); Calcium 9.6 mg/dL (8.4-10.2); Potassium 4.6 mmol/L (3.5-5.1); Total Bilirubin 0.5 mg/dL (0.2-1.3); Total Protein 7.4 g/dL (6.3-8.2)
== END | disposition home or self-care (01) ==
LOC: LABPAT 10:05
PROVIDERS: ATTEND Surgery
DX: Z01.812 Encounter for preprocedural laboratory examination (principal); I70.229 Atherosclerosis of native arteries of extremities with rest pain, unspecified extremity; I48.91 Unspecified atrial fibrillation; Z79.899 Other long term (current) drug therapy
CPT/HCPCS: 36415; 80053; 85610; 85730

== ENCOUNTER 2021-05-21 10:52 | Inpatient (IN) | payer MEDICARE ==
[~2021-05-21 10:52] MED LIST changes: -ALPRAZolam 0.25 MG TAB PO PRN; -ALPRAZolam 0.5 MG TAB PO PRN; -ASPIRIN 325 MG TAB PO PRN; +DEXAMETHASONE SOD PHOSPHATE 4 MG/ML 1 ML VIAL IV ONE; +HYDROmorphone 0.5 MG/0.5 ML SYRINGE IVP PRN; +MIDAZOLAM 2 MG/2 ML VIAL IV PRN; +ONDANSETRON 4 MG/2 ML VIAL IVP ONE; -SODIUM CHLORIDE 0.9% 1,000 ML in EMPTY BAG 1 BAG IV ONE; -SODIUM CHLORIDE 0.9% 500 ML 500 ML with niCARdipine 6.25 MG, NITROGLYCERIN-D5W PMX 0.05... IV ONE
[2021-05-21] MEDS: LACTATED RINGERS 1,000 ML IV SCH (11:45)
[2021-05-21 11:50] LABS: Glucose,Whole Blood 183 mg/dL (75-99)
[2021-05-21] MEDS ORDERED: ePHEDrine SULFATE/0.9% NACL/PF 50 MG/5 ML SYRINGE IV ONE (12:50)
[2021-05-21] MEDS ORDERED: HEPARIN SODIUM,PORCINE 10,000 UNIT/ML 1 ML VIAL ONE (12:50)
[2021-05-21] MEDS ORDERED: LIDOCAINE 1% INJ 10MG/ML (20 ML MDV) ONE (12:50)
[2021-05-21] MEDS ORDERED: GLYCOPYRROLATE 0.2 MG/ML 2 ML VIAL ONE (12:50)
[2021-05-21] MEDS ORDERED: VECURONIUM 10 MG VIAL IV ONE (12:50)
[2021-05-21] MEDS ORDERED: fentaNYL (PF) 50 MCG/ML 2 ML AMP ONE (12:50)
[2021-05-21] MEDS ORDERED: SUCCINYLCHOLINE CHLORIDE 100 MG/5 ML SYR IV ONE (12:50)
[2021-05-21] MEDS ORDERED: NEOSTIGMINE 1 MG/ML 10 ML VIAL ONE (12:50)
[2021-05-21] MEDS ORDERED: ETOMIDATE 2 MG/ML 10 ML VIAL ONE (12:50)
[2021-05-21] MEDS ORDERED: ceFAZolin 2,000 MG in SODIUM CHLORIDE 0.9% 500 ML IRRIGATION ONE (13:40)
[2021-05-21] MEDS ORDERED: HEPARIN SODIUM,PORCINE 10,000 UNIT in SODIUM CHLORIDE 0.9% 1,000 ML IRRIGATION ONE (13:40)
[2021-05-21] MEDS ORDERED: SODIUM CHLORIDE 0.9% 1,000 ML IV ONE (14:49)
[2021-05-21 15:20] LABS: Glucose,Whole Blood 180 mg/dL (75-99)
[2021-05-21] MEDS ORDERED: GELATIN SPONGE,ABSORB (LARGE) 1 EACH SPONGE TOPICAL ONE (16:10)
[2021-05-21] MEDS ORDERED: THROMBIN (BOVINE) 5,000 UNIT VIAL TOPICAL ONE (16:11)
[2021-05-21] MEDS ORDERED: IOPAMIDOL-300 50ML BTL IV ONE ×3 (16:13)
[2021-05-21] MEDS ORDERED: HYDROcodone/APAP 5-325MG 1 EACH TAB PO PRN (17:15)
[2021-05-21] MEDS ORDERED: MORPHINE SULFATE 4 MG/ML SYRINGE IV PRN (17:15)
--- NOTE | 2021-05-21 18:47 | P.OP ---
Date of Procedure: 05/21/21 Preoperative Diagnosis: Right lower extremity rest pain Thornwood classification 4 Right common femoral artery occlusion, profunda occlusion, tibial peroneal trunk occlusion Postoperative Diagnosis: Same Procedure(s) Performed: #1 right common femoral, profundus femoris and superficial femoral artery endarterectomy with patch angioplasty #2 right lower extremity selective iliofemoral, femoral-popliteal and tibial artery angiogram Anesthesia: GETA Surgeon: Brice Meeks Nuisance Wildlife Trapper #1: Alicja Araujo Estimated Blood Loss (ml): 250 Pathology: other (femoral plaque) Condition: stable Disposition: PACU Indications for Procedure: 71-year-old gentleman with history of right lower extremity pain with ambulation as well as rest who presented originally to the office from Dr. Porras's office due to right common femoral artery occlusion. Patient states he having rest pain and diminished arterial Dopplers. Upon angiogram from Dr. Porras there was significant occlusion of the common femoral artery, profundus femoris as well as distal tibioperoneal trunk. Due to his severe symptoms and femoral occlusive disease it was discussed that he would need a femoral endarterectomy as well as profundus femoris endarterectomy. He presents today for such procedure. Description of Procedure: After written and informed consent was obtained the patient and all risks benefits and competitions were described the patient is brought to the operative suite and laid in a supine position. The area of the groin and right lower extremity was prepped and draped in usual sterile fashion after appropriate anesthetic was performed per the anesthesiologist. A timeout was performed in normal fashion antibiotics were administered prior to incision. An oblique incision was then created at the right groin overlying the common femoral artery with a 10 blade scalpel and dissection was carried down through the subcutaneous tissue with electrocautery to the common femoral artery. The common femoral artery, profundus femoris and superficial femoral artery were then dissected free in a circumferential manner and controlled with vessel loops. Upon dissection there was dense calcification noted throughout the entirety of the common femoral artery extending into the profundus femoris artery. Patient was administered heparin and followed with ACTs and redosed as needed. Proximal and distal control was then obtained with vascular clamps and arteriotomy was created with 11 blade scalpel. Arteriotomy was then extended with Pott Aiken scissors both proximally and distally to the superficial femoral artery. Dense calcification was noted an endarterectomy was performed with a [place] to the proximal aspect and plaque was removed revealing good pulsatile blood flow. Plaque was then removed to the profundus femoris vessel and an eversion technique was performed and plaque was removed from the profundus femoris artery. Endarterectomy was then extended to the superficial femoral artery and a stent was encountered upon arteriotomy. The plaque was then removed to the stent and partial stent was also removed with Pott Aiken scissors. The plaque was then tacked distally to remove any distal flap with 6-0 Prolene suture. Once completed all free debris was removed backbleeding was assessed from the profundus femoris and superficial femoral artery which was brisk. Patch angioplasty was then performed with 6-0 Prolene suture in a running fashion 2. Prior to last sutures being placed control was released from the inflow revealing good pulsatile flow and reclamped. Outflow was then released to the profundus femoris revealing brisk backbleeding. The inflow was once again released followed by the superficial femoral artery. Final sutures were then secured and hemostasis was ensured with Gelfoam and thrombin. The flow was then assessed with a Doppler demonstrating good pulsatile flow and multiphasic signal into the profundus femoris and superficial femoral artery. At that time an Angiocath was then utilized and accessed through the patch was performed and selective angiogram was then performed of the right lower extremity iliofemoral, femoral popliteal and tibial vessels. There was brisk flow and widely patent iliofemoral segment as well as the profundus femoris filling briskly and the superficial femoral artery through the stent. The superficial femoral artery was patent extending to the popliteal artery with some mild atherosclerotic disease noted. Below the knee the tibioperoneal trunk was occluded with immediate reconstitution at the anterior tibial and peroneal vessels. There is two-vessel runoff to the ankle and foot. The incision was then copiously irrigated the Angiocath was removed and suture was placed for hemostasis. Once hemostatic the incision was then closed in a multilayer fashion with 3-0 Vicryl suture for the subcutaneous tissue and 4-0 Monocryl for the skin. The incision site was then cleansed and dressed with a Prevena VAC. The patient all procedure well had multiphasic signal at the DP at the conclusion of the procedure and was sent to PACU for recovery.
[2021-05-21 19:48] LABS: Glucose,Whole Blood 198 mg/dL (75-99)
[2021-05-21] MEDS ORDERED: ACETAMINOPHEN TAB 500 MG TAB PO PRN (20:06)
[2021-05-21] MEDS: FUROSEMIDE 20 MG TAB PO SCH (20:39)
[2021-05-21] MEDS: INSULIN ASPART (NovoLOG) 100 UNIT/ML VIAL SQ SCH (20:39)
[2021-05-21] MEDS: RANOLAZINE 500 MG TAB.ER.12H PO SCH (20:39)
[2021-05-21] MEDS ORDERED: PRAVASTATIN SODIUM 80 MG TAB PO SCH (21:00)
[2021-05-21] MEDS ORDERED: NON FORMULARY DRUG (Omega-3 Fatty Acids/Fish Oil [Fish Oil 1,000 Mg Softgel] 1 EACH Capsul PO SCH (21:00)
[2021-05-22] MEDS ORDERED: ceFAZolin 3 GM in SODIUM CHLORIDE 0.9% 100 ML IVPB SCH ×2
[2021-05-22] MEDS: LACTATED RINGERS 1,000 ML IV SCH (05:55)
[2021-05-22 05:59] LABS: Glucose,Whole Blood 150 mg/dL (75-99)
[2021-05-22] MEDS: INSULIN ASPART (NovoLOG) 100 UNIT/ML VIAL SQ SCH ×2 (06:04→12:33)
--- NOTE | 2021-05-22 07:10 | FL ---
Fluoroscopy History: Right Femoral Artery Endarterectomy 85 seconds of fluoroscopic time and 5 films are submitted for Right Femoral Artery Endarterectomy. Re port is to follow from the performing physician. .
[2021-05-22] MEDS ORDERED: REPAGLINIDE 1 MG TAB PO SCH (07:30)
[2021-05-22] MEDS ORDERED: PANTOPRAZOLE 40 MG TABLET PO SCH (07:30)
[2021-05-22] MEDS ORDERED: allopurinoL 100 MG TAB PO SCH (09:00)
[2021-05-22] MEDS ORDERED: METOPROLOL SUCCINATE (ER) 100 MG TAB.ER.24H PO SCH (09:00)
[2021-05-22] MEDS ORDERED: EMPAGLIFLOZIN PO SCH (09:00)
[2021-05-22] MEDS ORDERED: LINAGLIPTIN PO SCH (09:00)
[2021-05-22] MEDS ORDERED: MONTELUKAST 10 MG TAB PO SCH (09:00)
[2021-05-22] MEDS: FUROSEMIDE 20 MG TAB PO SCH ×2 (09:09→16:06)
[2021-05-22] MEDS: RANOLAZINE 500 MG TAB.ER.12H PO SCH (09:09)
[2021-05-22 11:32] LABS: Glucose,Whole Blood 241 mg/dL (75-99)
--- NOTE | 2021-05-22 11:42 | P.CONS ---
History of Present Illness - Reason for Consult Consult date: 05/22/21 Medical management Requesting physician: Brice Singh - Chief Complaint Right common femoral artery occlusion - History of Present Illness This is a 71-year-old male patient of Dr. Hall. Patient presented for an elective right common femoral endarterectomy with patch angioplasty and right lower extremity selective iliofemoral femoral popliteal tibial artery angiogram with Dr. Singh. Patient has a past medical history of lower infection in the pain with ambulation original presented to Dr. Gordon's office was found to have significant occlusion of the common femoral artery. Additional medical history includes A. fib, CAD, heart failure, diabetes mellitus, GERD, GI bleed, hyperlipidemia, hypertension, myocardial infarction, ST arthritis and renal disease. Patient also has significant history of coronary artery bypass graft surgery in 2005. This time patient is resting comfortably in bed. Patient denies chest pain or shortness breath. Denies nausea vomiting or diarrhea. Patient denies any urinary burning or frequency Review of Systems Please refer to HPI otherwise unremarkable Past Medical History Past Medical History: Atrial Fibrillation, Coronary Artery Disease (CAD), Chest Pain / Angina, Heart Failure, Diabetes Mellitus, GERD/Reflux, GI Bleed, Hyperlipidemia, Hypertension, Myocardial Infarction (SD), Osteoarthritis (OA), Renal Disease, Vascular Disorder Additional Past Medical History / Comment(s): NIDDM type II, ckd-pt states doctor watches his renal functions, anemia-pt states told GI bleed but site never found, benign colon polyps, SD in 2017 d/t anemia, carotid artery disease, PAD, athritis in low back and bilateral hips, past gout R foot, gallstones. Last Myocardial Infarction Date:: 09/2016 History of Any Multi-Drug Resistant Organisms: None Reported Past Surgical History: Coronary Bypass/CABG, Heart Catheterization, Heart Catheterization With Stent, Orthopedic Surgery, Tonsillectomy Additional Past Surgical History / Comment(s): Multiple peripheral revascularization procedures/stents/arthrectomies/ballooning, multiple aortagrams with runoffs, JOIE, PCI with stent, 2005 CABG 3 vessel, EGD, colonoscopies/benign polypectomies, R foot gout, cyst on back drained Past Anesthesia/Blood Transfusion Reactions: No Reported Reaction Date of Last Stent Placement:: 2014 Smoking Status: Former smoker - Past Family History Father Family Medical History: Myocardial Infarction (SD) Additional Family Medical History / Comment(s): Father at the age of 65 yrs from heart problems. He had a SD in his 30s and had CABG Mother Family Medical History: Pulmonary Embolus Medications and Allergies Home Medications Medication Instructions Recorded Confirmed Type Allopurinol [Zyloprim] 100 mg PO QAM 03/16/15 05/21/21 History [place]-3 Fatty Acids/Fish Oil [Fish 1 cap PO BID 03/16/15 05/21/21 History Oil 1,000 mg Softgel] Nitroglycerin Sl Tabs [Nitrostat] 0.4 mg SL Q5M PRN 05/12/16 05/21/21 History Cyanocobalamin [Vitamin B-12 1,000 mcg IM Q30D 05/26/16 05/21/21 History Injection] Magnesium Oxide [Mag-Ox] 400 mg PO DAILY@1200 08/19/16 05/21/21 History Metoprolol Succinate (ER) [Toprol 100 mg PO QAM 08/19/16 05/21/21 History XL] Montelukast [Singulair] 10 mg PO QAM 08/31/17 05/21/21 History Ranolazine [Ranexa] 500 mg PO BID 08/31/17 05/21/21 History Pravastatin Sodium 80 mg PO HS 01/15/19 05/21/21 History Furosemide [Lasix] 20 mg PO BID 07/02/20 05/21/21 History Repaglinide [Prandin] 0.5 mg PO BID 07/02/20 05/21/21 History glipiZIDE XL [Glucotrol XL] 10 mg PO AC-BRKFST 07/02/20 05/21/21 History Pantoprazole [Protonix] 40 mg PO AC-BRKFST tablet. 07/06/20 05/21/21 Rx Metoprolol Succinate (ER) [Toprol 50 mg PO DAILY@1200 30 Days #30 09/30/20 0 05/21/21 Rx XL] tab.er.24h Empagliflozin/Linagliptin 1 each PO QAM 05/12/21 05/21/21 History [Glyxambi 25 mg-5 mg Tablet] Acetaminophen [Tylenol Extra 500 mg PO Q6H PRN 05/19/21 05/21/21 History Strength] Allergies Allergy/AdvReac Type Severity Reaction Status Date / Time Sulfa (Sulfonamide Allergy Rash/Hives Verified 05/21/21 11:28 Antibiotics) sulfamethoxazole Allergy Rash/Hives Verified 05/21/21 11:28 [From Bactrim] trimethoprim [From Bactrim] Allergy Rash/Hives Verified 05/21/21 11:28 Physical Exam Vitals: Vital Signs Temp Pulse Resp BP BP Pulse Ox 05/22/21 08:00 76 18 05/22/21 07:50 98.1 F 76 18 147/69 94 L 05/22/21 04:00 98.1 F 75 18 145/66 94 L 05/22/21 02:00 62 18 05/22/21 00:00 98.1 F 62 18 125/65 97 05/21/21 21:44 66 18 157/62 98 05/21/21 21:00 71 18 146/67 96 05/21/21 20:00 71 18 161/66 99 05/21/21 19:30 97.4 F L 72 18 126/78 96 05/21/21 19:00 66 18 139/67 97 05/21/21 18:45 97.9 F 67 18 158/69 95 05/21/21 18:15 18 149/54 94 L 05/21/21 18:00 97.9 F 67 18 170/65 94 L 05/21/21 17:45 62 16 154/66 99 05/21/21 17:30 66 16 169/72 99 05/21/21 17:15 66 16 140/46 164/73 98 05/21/21 17:07 97.5 F L 74 16 172/65 98 Intake and Output 05/21/21 05/22/21 05/22/21 22:59 06:59 14:59 Intake Total 0 100 360 Output Total 940 1300 Balance -940 -1200 360 Intake: IV 0 Intake, IV Titration 100 Amount ceFAZolin 2 gm In Sodium 100 Chloride 0.9% 50 ml @ 100 mls/hr IVPB Q8H [facility] Rx#: [id number] Oral 360 Output: Urine 440 1300 Estimated Blood Loss 500 Other: Voiding Method Indwelling Catheter Indwelling Catheter Toilet # Voids 1 Head normocephalic Neck supple Lungs clear to auscultation bilaterally no wheezing or crackles Heart regular rate and rhythm S1-S2, no rub or gallop Abdomen is soft nontender nondistended positive bowel sounds no hepatosplenomegaly Extremities no edema. Right groin site clean dry and intact Neuro alert and orientated to 3 Results Labs: Abnormal Lab Results - Last 24 Hours (Table) 05/21/21 05/21/21 05/21/21 Range/Units 11:48 15:18 19:46 POC Glucose (mg/dL) 183 H 180 H 198 H (75-99) mg/dL 05/22/21 05/22/21 Range/Units 05:56 11:31 POC Glucose (mg/dL) 150 H 241 H (75-99) mg/dL Assessment and Plan Assessment: 1. Status post right common femoral endarterectomy with patch angioplasty and right lower extreme a selective iliofemoral femoral popliteal and tibial artery angiogram with Dr. singh. Patient is currently postop day 1 2. History of essential hypertension 3. History of hyperlipidemia 4. History of atrial fibrillation 5. History of diabetes mellitus 6. History of coronary artery disease with coronary artery bypass graft surgery 7. History of ischemic cardiomyopathy Acute for this consultation we will continue to follow patient closely throughout stay Time with Patient: Greater than 30 (Greater than 60% of the total time spent in counseling and coordination of care)
[2021-05-22] MEDS ORDERED: METOPROLOL SUCCINATE (ER) 50 MG TAB.ER.24H PO SCH (12:00)
[2021-05-22] MEDS ORDERED: MAGNESIUM OXIDE 400 MG TAB PO SCH (12:00)
[2021-05-22 12:03] LABS: Basophils % (A) 0 %; Eosinophils # (A) 0.1 k/uL (0-0.7); Eosinophils % (A) 1 %; HCT 39.2 % (39.0-53.0); HGB 12.9 gm/dL (13.0-17.5); Lymphocytes # (A) 1.8 k/uL (1.0-4.8); Lymphocytes % (A) 16 %; MCH 29.9 pg (25.0-35.0); MCV 90.5 fL (80.0-100.0); Mean Platelet Volume 7.4; Monocytes # (A) 0.5 k/uL (0-1.0); Monocytes % (A) 5 %; Neutrophils # (A) 8.2 k/uL (1.3-7.7); Neutrophils % (A) 76 %; Platelet Count 186 k/uL (150-450); RBC 4.33 m/uL (4.30-5.90); RDW 15.2 % (11.5-15.5); WBC 10.9 k/uL (3.8-10.6)
[2021-05-22 12:12] LABS: Albumin 3.5 g/dL (3.5-5.0); Calcium 8.5 mg/dL (8.4-10.2); Potassium 4.2 mmol/L (3.5-5.1); Total Bilirubin 0.4 mg/dL (0.2-1.3)
--- NOTE | 2021-05-22 14:18 | P.CRDCN ---
History of Present Illness Consult date: 05/22/21 Consult reason: other (Post femoral endarterectomy) History of present illness: History of present illness: This is a 71-year-old male patient of Dr. SULMA Hendricks the past medical history of paroxysmal atrial fibrillation on long-term anticoagulation, coronary artery disease status post CABG in 2005, stent to circumflex in March 2015, ischemic cardiomyopathy with EF of 40-45%, chronic systolic heart failure, valvular heart disease, pulmonary hypertension, hypertension, chronic kidney disease, diabetes mellitus type 2. On May 12, patient underwent right lower extremity angiogram, selective left common femoral artery angiogram and ultrasound-guided access of the left femoral artery with Dr. Porras. Patient has been brought in the hospital by Dr. Meeks status post right common femoral, profundus femoris and superficial femoral artery endarterectomy with patch angioplasty and right lower extremity selective iliofemoral, femoral-popliteal and tibial artery angiogram. lunchroom monitor is been a sinus rhythm with occasional PVCs but did have a run of 7 beats last evening. No further episodes. Patient denies having any chest pain, shortness of breath, palpitations, lightheadedness or dizziness. Review Of Systems: Constitutional: No fever, no chills. No weakness, fatigue or lethargy. EENT: No headache. No dizziness. Lungs: No shortness of breath, cough, no sputum production. No wheezing. Cardiovascular: No chest pain, no lower extremity edema. No palpitations. No paroxysmal nocturnal dyspnea. No orthopnea. No lightheadedness or dizziness. No syncopal episodes. Abdominal: No abdominal pain. No nausea, vomiting. No diarrhea. No constipation. No bloody or tarry stools.. No loss of appetite. Genitourinary: No dysuria.. No urinary retention. Musculoskeletal: No myalgias. No muscle weakness, no gait dysfunction, no frequent falls. No back pain. No neck pain. Integumentary: No wounds, no lesions. No rash or pruritus. No unusual bruising. Neurologic: No aphasia. No facial droop. No change in mentation. No head injury. No headache. No paralysis. No paresthesia. Psychiatric: No depression. No anxiety. Endocrine: No abnormal blood sugars. Physical examination: Gen: This is a 71-year-old obese male. He is resting in bed and appears to be in no acute distress. VS: Afebrile, heart rate 74, blood pressure 136/67, pulse ox 95% on room air. HEENT: Head is atraumatic, normocephalic. Pupils equal, round. Sclerae is anicteric. NECK: Supple. No JVD. No lymphadenopathy. No thyromegaly. LUNGS: Clear to auscultation. No wheezes or rhonchi. No intercostal retractions. HEART: Regular rate and rhythm. No murmur. ABDOMEN: Soft. Bowel sounds are present. No masses. No tenderness. EXTREMITIES: No pedal edema. No calf tenderness. NEUROLOGICAL: Patient is awake, alert and oriented x3. Cranial nerves 2 through 12 are grossly intact. Assessment: Intermittent claudication of the right lower extremity status post endarterectomy and patch angioplasty Sinus rhythm with PVCs, run of 7 beats Paroxysmal atrial fibrillation Coronary artery disease status post CABG in 2005 followed by stent the to circumflex in 2014 Ischemic cardiomyopathy Chronic systolic heart failure Alveolar heart disease Pulmonary hypertension Hypertension Chronic kidney disease Diabetes mellitus type 2 Plan: Continue cardiac monitoring Continue Lasix 20 mg twice daily, Toprol-XL 100 mg in the morning and 50 mg at noon, pravastatin 80 mg at bedtime, Ranexa 500 mg twice daily Resume Xarelto 15 mg daily once cleared by surgery Further recommendations to follow based upon clinical course Thank you kindly for this consultation. Nurse practitioner note has been reviewed, I agree with documented findings and plan of care. Patient was seen and examined. Past Medical History Past Medical History: Atrial Fibrillation, Coronary Artery Disease (CAD), Chest Pain / Angina, Heart Failure, Diabetes Mellitus, GERD/Reflux, GI Bleed, Hyperlipidemia, Hypertension, Myocardial Infarction (NC), Osteoarthritis (OA), Renal Disease, Vascular Disorder Additional Past Medical History / Comment(s): NIDDM type II, ckd-pt states doctor watches his renal functions, anemia-pt states told GI bleed but site never found, benign colon polyps, NC in 2017 d/t anemia, carotid artery disease, PAD, athritis in low back and bilateral hips, past gout R foot, gallstones. Last Myocardial Infarction Date:: 09/2016 History of Any Multi-Drug Resistant Organisms: None Reported Past Surgical History: Coronary Bypass/CABG, Heart Catheterization, Heart Catheterization With Stent, Orthopedic Surgery, Tonsillectomy Additional Past Surgical History / Comment(s): Multiple peripheral revascularization procedures/stents/arthrectomies/ballooning, multiple aortagrams with runoffs, JOIE, PCI with stent, 2006 CABG 3 vessel, EGD, colonoscopies/benign polypectomies, R foot gout, cyst on back drained Past Anesthesia/Blood Transfusion Reactions: No Reported Reaction Date of Last Stent Placement:: 2014 Smoking Status: Former smoker - Past Family History Father Family Medical History: Myocardial Infarction (NC) Additional Family Medical History / Comment(s): Father at the age of 65 yrs from heart problems. He had a NC in his 30s and had CABG Mother Family Medical History: Pulmonary Embolus Medications and Allergies Home Medications Medication Instructions Recorded Confirmed Type Allopurinol [Zyloprim] 100 mg PO QAM 03/16/15 05/21/21 History [place]-3 Fatty Acids/Fish Oil [Fish 1 cap PO BID 03/16/15 05/21/21 History Oil 1,000 mg Softgel] Nitroglycerin Sl Tabs [Nitrostat] 0.4 mg SL Q5M PRN 05/12/16 05/21/21 History Cyanocobalamin [Vitamin B-12 1,000 mcg IM Q30D 05/26/16 05/21/21 History Injection] Magnesium Oxide [Mag-Ox] 400 mg PO DAILY@1200 08/19/16 05/21/21 History Metoprolol Succinate (ER) [Toprol 100 mg PO QAM 08/19/16 05/21/21 History XL] Montelukast [Singulair] 10 mg PO QAM 08/31/17 05/21/21 History Ranolazine [Ranexa] 500 mg PO BID 08/31/17 05/21/21 History Pravastatin Sodium 80 mg PO HS 01/15/19 05/21/21 History Furosemide [Lasix] 20 mg PO BID 07/02/20 05/21/21 History Repaglinide [Prandin] 0.5 mg PO BID 07/02/20 05/21/21 History glipiZIDE XL [Glucotrol XL] 10 mg PO AC-BRKFST 07/02/20 05/21/21 History Pantoprazole [Protonix] 40 mg PO AC-BRKFST tablet. 07/06/20 05/21/21 Rx Metoprolol Succinate (ER) [Toprol 50 mg PO DAILY@1200 30 Days #30 09/30/20 05/21/21 Rx XL] tab.er.24h Empagliflozin/Linagliptin 1 each PO QAM 05/12/21 05/21/21 History [Glyxambi 25 mg-5 mg Tablet] Acetaminophen [Tylenol Extra 500 mg PO Q6H PRN 05/19/21 05/21/21 History Strength] Allergies Allergy/AdvReac Type Severity Reaction Status Date / Time Sulfa (Sulfonamide Allergy Rash/Hives Verified 05/21/21 11:28 Antibiotics) sulfamethoxazole Allergy Rash/Hives Verified 05/21/21 11:28 [From Bactrim] trimethoprim [From Bactrim] Allergy Rash/Hives Verified 05/21/21 11:28 Physical Exam Vitals: Vital Signs Temp Pulse Pulse Resp BP BP Pulse Ox 05/22/21 07:50 98.1 F 76 18 147/69 94 L 05/22/21 04:00 98.1 F 75 18 145/66 94 L 05/22/21 02:00 62 18 05/22/21 00:00 98.1 F 62 18 125/65 97 05/21/21 21:44 66 18 157/62 98 05/21/21 21:00 71 18 146/67 96 05/21/21 20:00 71 18 161/66 99 05/21/21 19:30 97.4 F L 72 18 126/78 96 05/21/21 19:00 66 18 139/67 97 05/21/21 18:45 97.9 F 67 18 158/69 95 05/21/21 18:15 18 149/54 94 L 05/21/21 18:00 97.9 F 67 18 170/65 94 L 05/21/21 17:45 62 16 154/66 99 05/21/21 17:30 66 16 169/72 99 05/21/21 17:15 66 16 140/46 164/73 98 05/21/21 17:07 97.5 F L 74 16 172/65 98 05/21/21 11:26 97.6 F 73 16 190/80 97 Intake and Output 05/21/21 05/22/21 05/22/21 22:59 06:59 14:59 Intake Total 0 100 360 Output Total 940 1300 Balance -940 -1200 360 Intake: IV 0 Intake, IV Titration 100 Amount ceFAZolin 2 gm In Sodium 100 Chloride 0.9% 50 ml @ 100 mls/hr IVPB Q8H [facility] Rx#: [id number] Oral 360 Output: Urine 440 1300 Estimated Blood Loss 500 Other: Voiding Method Indwelling Catheter Indwelling Catheter # Voids 1 Results 05/22/21 11:43 05/22/21 11:43 Current Medications Generic Name Dose Route Start Last Admin Trade Name Freq PRN Reason Stop Dose Admin Acetaminophen 500 mg 05/21/21 20:06 05/21/21 20:51 Acetaminophen Tab 500 Mg Tab PO 500 mg Q6H PRN Administration Pain Hydrocodone Bitart/Acetaminophen 1 each 05/21/21 17:15 05/22/21 01:33 Hydrocodone/Apap 5-325mg 1 Each Tab PO 1 each Q4HR PRN Administration Pain Scale 6 to 7 Allopurinol 100 mg 05/22/21 09:00 05/22/21 09:09 Allopurinol 100 Mg Tab PO 100 mg QAM [facility] Administration Furosemide 20 mg 05/21/21 21:00 05/22/21 09:09 Furosemide 20 Mg Tab PO 20 mg BID@0900,1600 [facility] Administration Lactated Ringer's 1,000 mls @ 20 mls/hr 05/21/21 05:48 05/22/21 05:55 Lactated Ringers IV Not Given .Q24H [facility] Insulin Aspart 0 unit 05/21/21 21:00 05/22/21 06:04 Insulin Aspart (Novolog) 100 Unit/Ml Vial SQ 1 unit ACHS [facility] Administration Protocol Magnesium Oxide 400 mg 05/22/21 12:00 Magnesium Oxide 400 Mg Tab PO DAILY@1200 [facility] Metoprolol Succinate 50 mg 05/22/21 12:00 Metoprolol Succinate (Er) 50 Mg Tab.Er.24h PO DAILY@1200 [facility] Metoprolol Succinate 100 mg 05/22/21 09:00 05/22/21 09:09 Metoprolol Succinate (Er) 100 Mg Tab.Er.24h PO 100 mg QAM [facility] Administration Montelukast Sodium 10 mg 05/22/21 09:00 05/22/21 09:09 Montelukast 10 Mg Tab PO 10 mg QAM [facility] Administration Morphine Sulfate 3 mg 05/21/21 17:15 Morphine Sulfate 4 Mg/Ml Syringe IV Q3HR PRN Moderate Pain Patient's Own ( 1 each 05/22/21 09:00 05/22/21 09:12 Empagliflozin/ PO Not Given Linagliptin [ QAM [facility] Glyxambi 25 Mg-5 Mg Tablet] 1 Each Tablet) Pantoprazole Sodium 40 mg 05/22/21 07:30 05/22/21 06:04 Pantoprazole 40 Mg Tablet PO 40 mg AC-BRKFST [facility] Administration Pravastatin Sodium 80 mg 05/21/21 21:00 05/21/21 21:06 Pravastatin Sodium 80 Mg Tab PO 80 mg HS [facility] Administration Ranolazine 500 mg 05/21/21 21:00 05/22/21 09:09 Ranolazine 500 Mg Tab.Er.12h PO 500 mg BID [facility] Administration Repaglinide 0.5 mg 05/22/21 07:30 05/22/21 06:03 Repaglinide 1 Mg Tab PO 0.5 mg AC-BID [facility] Administration Intake and Output 05/21/21 05/22/21 05/22/21 22:59 06:59 14:59 Intake Total 0 100 360 Output Total 940 1300 Balance -940 -1200 360 Intake: IV 0 Intake, IV Titration 100 Amount ceFAZolin 2 gm In Sodium 100 Chloride 0.9% 50 ml @ 100 mls/hr IVPB Q8H [facility] Rx#: [id number] Oral 360 Output: Urine 440 1300 Estimated Blood Loss 500 Other: Voiding Method Indwelling Catheter Indwelling Catheter # Voids 1
--- NOTE | 2021-05-22 15:13 | P.PN ---
Subjective Progress Note Date: 05/22/21 Principal diagnosis: Status post right femoral thromboendarterectomy. Patient is evaluated today, postop day #1 status post right femoral thromboendarterectomy. The patient indicates she feels well and offers no complaints. He indicates she is been up and about without significant discomfort. Objective - Vital Signs Vital signs: Vital Signs Temp 98.1 F 05/22/21 12:00 Pulse 74 05/22/21 14:00 Resp 17 05/22/21 14:00 BP 136/67 05/22/21 12:00 Pulse Ox 95 05/22/21 12:00 Intake & Output 05/21/21 05/22/21 05/22/21 18:59 06:59 18:59 Intake Total 1178 164 8503 Output Total 940 1300 Balance 512 -1200 1020 Weight 109.7 kg Intake: IV 1452 Intake, IV Titration 100 Amount ceFAZolin 2 gm In Sodium 100 Chloride 0.9% 50 ml @ 100 mls/hr IVPB Q8H [facility] Rx#: [id number] Oral 1020 Output: Urine 440 1300 Estimated Blood Loss 500 Other: Voiding Method Indwelling Catheter Toilet # Voids 1 - Exam Provine VAC is in place and working well. Legs are freely movable and nontender. Toes are freely movable and nontender. - Labs CBC & Chem 7: 05/22/21 11:43 05/22/21 11:43 Labs: Abnormal Lab Results - Last 24 Hours (Table) 05/21/21 05/21/21 05/22/21 Range/Units 15:18 19:46 05:56 WBC (3.8-10.6) k/uL Hgb (13.0-17.5) gm/dL Neutrophils # (1.3-7.7) k/uL Sodium (137-145) mmol/L BUN (9-20) mg/dL Creatinine (0.66-1.25) mg/dL Glucose (74-99) mg/dL POC Glucose (mg/dL) 180 H 198 H 150 H (75-99) mg/dL Total Protein (6.3-8.2) g/dL 05/22/21 05/22/21 05/22/21 Range/Units 11:31 11:43 11:43 WBC 10.9 H (3.8-10.6) k/uL Hgb 12.9 L (13.0-17.5) gm/dL Neutrophils # 8.2 H (1.3-7.7) k/uL Sodium 133 L (137-145) mmol/L BUN 21 H (9-20) mg/dL Creatinine 1.37 H (0.66-1.25) mg/dL Glucose 251 H (74-99) mg/dL POC Glucose (mg/dL) 241 H (75-99) mg/dL Total Protein 6.0 L (6.3-8.2) g/dL Assessment and Plan Assessment: Postop day #1 status post right femoral endarterectomy. (1) Femoral artery occlusion, right Current Visit: Yes Status: Acute Priority: Medium Code(s): I70.201 - UNSP ATHSCL [place] ARTERIES OF EXTREMITIES, RIGHT LEG SNOMED Code(s): 56511224582146942 Plan: Patient surgical is stable for discharge. Discharge instructions were reviewed with the patient. He is to continue his current medical regimen. He is to be up and ambulatory as tolerated. He is asked avoid any known tobacco products. He was asked to follow-up with Dr. Meeks as previously scheduled. Time with Patient: Less than 30
--- NOTE | 2021-05-22 15:15 | P.DS ---
Providers Date of admission: 05/21/21 10:52 Expected date of discharge: 05/22/21 Attending physician: Brice Meeks DO Consults: 05/21/21 17:20 Consult Physician Routine Consulting Provider: Nahid Porras Consult Reason/Comments: post fem endart Do you want consulting provider notified?: Yes 05/21/21 17:58 Consult Physician Routine Consulting Provider: Chichi Chen Consult Reason/Comments: medical management Do you want consulting provider notified?: Yes Primary care physician: Kristel Hall - Discharge Diagnosis(es) (1) Femoral artery occlusion, right Current Visit: Yes Status: Acute Priority: Medium Hospital Course: Patient underwent right femoral thromboendarterectomy without issue. Assessment: Surgically stable for discharge as the patient is free of significant discomfort and has normal motor and sensory function of the right lower extremity. Procedures: Right common femoral thromboendarterectomy. Patient Condition at Discharge: Good Plan - Discharge Summary Discharge Rx Participant: Yes New Discharge Prescriptions: No Action Allopurinol [Zyloprim] 100 mg PO QAM [place]-3 Fatty Acids/Fish Oil [Fish Oil 1,000 mg Softgel] 1 cap PO BID Nitroglycerin Sl Tabs [Nitrostat] 0.4 mg SL Q5M PRN PRN Reason: Chest Pain Cyanocobalamin [Vitamin B-12 Injection] 1,000 mcg IM Q30D Metoprolol Succinate (ER) [Toprol XL] 100 mg PO QAM Magnesium Oxide [Mag-Ox] 400 mg PO DAILY@1200 Montelukast [Singulair] 10 mg PO QAM Ranolazine [Ranexa] 500 mg PO BID Pravastatin Sodium 80 mg PO HS Repaglinide [Prandin] 0.5 mg PO BID glipiZIDE XL [Glucotrol XL] 10 mg PO AC-BRKFST Furosemide [Lasix] 20 mg PO BID Pantoprazole [Protonix] 40 mg PO AC-BRKFST tablet. Metoprolol Succinate (ER) [Toprol XL] 50 mg PO DAILY@1200 30 Days #30 tab.er.24h Empagliflozin/Linagliptin [Glyxambi 25 mg-5 mg Tablet] 1 each PO QAM Acetaminophen [Tylenol Extra Strength] 500 mg PO Q6H PRN PRN Reason: Pain Discharge Medication List Allopurinol [Zyloprim] 100 mg PO QAM 03/16/15 [History] [place]-3 Fatty Acids/Fish Oil [Fish Oil 1,000 mg Softgel] 1 cap PO BID 03/16/15 [History] Nitroglycerin Sl Tabs [Nitrostat] 0.4 mg SL Q5M PRN 05/12/16 [History] Cyanocobalamin [Vitamin B-12 Injection] 1,000 mcg IM Q30D 05/26/16 [History] Magnesium Oxide [Mag-Ox] 400 mg PO DAILY@1200 08/19/16 [History] Metoprolol Succinate (ER) [Toprol XL] 100 mg PO QAM 08/19/16 [History] Montelukast [Singulair] 10 mg PO QAM 08/31/17 [History] Ranolazine [Ranexa] 500 mg PO BID 08/31/17 [History] Pravastatin Sodium 80 mg PO HS 01/15/19 [History] Furosemide [Lasix] 20 mg PO BID 07/02/20 [History] Repaglinide [Prandin] 0.5 mg PO BID 07/02/20 [History] glipiZIDE XL [Glucotrol XL] 10 mg PO AC-BRKFST 07/02/20 [History] Pantoprazole [Protonix] 40 mg PO AC-BRKFST tablet. 07/06/20 [Rx] Metoprolol Succinate (ER) [Toprol XL] 50 mg PO DAILY@1200 30 Days #30 tab.er.24h 09/30/20 [Rx] Empagliflozin/Linagliptin [Glyxambi 25 mg-5 mg Tablet] 1 each PO QAM 05/12/21 [History] Acetaminophen [Tylenol Extra Strength] 500 mg PO Q6H PRN 05/19/21 [History] Patient Instructions/Handouts: Atherectomy (GEN), Peripheral Vascular Disease (DC)
[2021-05-22 16:11] VITALS: BP 147/63; PULSE 70; RESP 18; TEMP 98.3
== END 2021-05-22 15:58 | disposition home or self-care (01) | DRG 253 ==
LOC: 2ORMAIN 10:52 → 3SCARD 17:28
PROVIDERS: ADMIT Surgery; ATTEND Surgery
PROC: 047K0ZZ Dilation of Right Femoral Artery, Open Approach (ICD-10-PCS; 2021-05-21)
PROC: 04UK0JZ Supplement Right Femoral Artery with Synthetic Substitute, Open Approach (ICD-10-PCS; 2021-05-21)
PROC: 04PY0DZ Removal of Intraluminal Device from Lower Artery, Open Approach (ICD-10-PCS; 2021-05-21)
PROC: 3E030GC Introduction of Other Therapeutic Substance into Peripheral Vein, Open Approach (ICD-10-PCS; 2021-05-21)
PROC: B41F1ZZ Fluoroscopy of Right Lower Extremity Arteries using Low Osmolar Contrast (ICD-10-PCS; 2021-05-21)
PROC: 04CK0ZZ Extirpation of Matter from Right Femoral Artery, Open Approach (ICD-10-PCS; principal; 2021-05-21 13:00)
DX: I70.211 Atherosclerosis of native arteries of extremities with intermittent claudication, right leg (principal); I50.22 Chronic systolic (congestive) heart failure; I13.0 Hypertensive heart and chronic kidney disease with heart failure and stage 1 through stage 4 chronic kidney disease, or unspecified chronic kidney disease; I48.0 Paroxysmal atrial fibrillation; Z20.822 Contact with and (suspected) exposure to COVID-19; I25.5 Ischemic cardiomyopathy; I25.10 Atherosclerotic heart disease of native coronary artery without angina pectoris; E78.5 Hyperlipidemia, unspecified; I27.22 Pulmonary hypertension due to left heart disease; E11.51 Type 2 diabetes mellitus with diabetic peripheral angiopathy without gangrene; Z79.01 Long term (current) use of anticoagulants; Z79.84 Long term (current) use of oral hypoglycemic drugs; I25.2 Old myocardial infarction; Z79.899 Other long term (current) drug therapy; Z82.49 Family history of ischemic heart disease and other diseases of the circulatory system; Z87.19 Personal history of other diseases of the digestive system; Z87.891 Personal history of nicotine dependence; Z95.1 Presence of aortocoronary bypass graft; Z95.5 Presence of coronary angioplasty implant and graft; E11.22 Type 2 diabetes mellitus with diabetic chronic kidney disease; I49.3 Ventricular premature depolarization; N18.9 Chronic kidney disease, unspecified; K21.9 Gastro-esophageal reflux disease without esophagitis; M10.9 Gout, unspecified; M19.90 Unspecified osteoarthritis, unspecified site; D64.9 Anemia, unspecified; K80.20 Calculus of gallbladder without cholecystitis without obstruction
CPT/HCPCS: 36415; 80053; 85025; 85610; 85730; 86850; 86900; 86901; 87635

== ENCOUNTER 2021-06-28 03:08 | Emergency (ER) | payer MEDICARE ==
[2021-06-28 03:20] VITALS: TEMP 97.8
[2021-06-28] MEDS ORDERED: SODIUM CHLORIDE 0.9% 500 ML 500 ML IV STA (03:41)
[2021-06-28] MEDS ORDERED: HYDROmorphone 0.5 MG/0.5 ML SYRINGE IVP STA ×2 (03:41→07:31)
[2021-06-28] MEDS ORDERED: ONDANSETRON 4 MG/2 ML VIAL IVP STA (03:41)
[2021-06-28 04:19] LABS: Basophils # (A) 0.1 k/uL (0-0.2); Basophils % (A) 1 %; Eosinophils # (A) 0.2 k/uL (0-0.7); Eosinophils % (A) 1 %; HCT 44.1 % (39.0-53.0); HGB 14.1 gm/dL (13.0-17.5); Lymphocytes % (A) 19 %; MCH 28.7 pg (25.0-35.0); MCV 89.6 fL (80.0-100.0); Mean Platelet Volume 7.1; Monocytes # (A) 0.5 k/uL (0-1.0); Monocytes % (A) 5 %; Neutrophils # (A) 7.7 k/uL (1.3-7.7); Neutrophils % (A) 73 %; Platelet Count 228 k/uL (150-450); RBC 4.92 m/uL (4.30-5.90); RDW 14.3 % (11.5-15.5); WBC 10.6 k/uL (3.8-10.6)
[2021-06-28 04:28] LABS: Albumin 4.3 g/dL (3.5-5.0); Calcium 9.1 mg/dL (8.4-10.2); Potassium 4.4 mmol/L (3.5-5.1); Total Bilirubin 0.4 mg/dL (0.2-1.3); Total Protein 7.1 g/dL (6.3-8.2)
--- NOTE | 2021-06-28 04:42 | ED ---
Abdominal Pain HPI - General Chief Complaint: Abdominal Pain Stated Complaint: Upper Abdominal Pain Time Seen by Provider: 06/28/21 03:21 Source: patient Mode of arrival: wheelchair - History of Present Illness Initial Comments: 71 year-old male patient presents to the emergency department for evaluation of midepigastric abdominal pain that started about an hour prior to arrival. He reports some nausea, no vomiting. States he is belching frequently. States he has had the pain one time in the past, was not evaluated at that time. He denies any shortness of breath, back pain, sweats, or dizziness. Denies history of abdominal surgery. Patient denies any recent rash, cough, shortness of breath, chest pain, diarrhea, constipation, back pain, numbness, tingling, dizziness, we akness, hematuria, dysuria, urinary urgency, urinary frequency, headache, visual changes, or any other complaints. - Related Data Home Medications Medication Instructions Recorded Confirmed Allopurinol [Zyloprim] 100 mg PO QAM 03/16/15 05/21/21 [place]-3 Fatty Acids/Fish Oil [Fish 1 cap PO BID 03/16/15 05/21/21 Oil 1,000 mg Softgel] Nitroglycerin Sl Tabs [Nitrostat] 0.4 mg SL Q5M PRN 05/12/16 05/21/21 Cyanocobalamin [Vitamin B-12 1,000 mcg IM Q30D 05/26/16 05/21/21 Injection] Magnesium Oxide [Mag-Ox] 400 mg PO DAILY@1200 08/19/16 05/21/21 Metoprolol Succinate (ER) [Toprol 100 mg PO QAM 08/19/16 05/21/21 XL] Montelukast [Singulair] 10 mg PO QAM 08/31/17 05/21/21 Ranolazine [Ranexa] 500 mg PO BID 08/31/17 05/21/21 Pravastatin Sodium 80 mg PO HS 01/15/19 05/21/21 Furosemide [Lasix] 20 mg PO BID 07/02/20 05/21/21 Repaglinide [Prandin] 0.5 mg PO BID 07/02/20 05/21/21 glipiZIDE XL [Glucotrol XL] 10 mg PO AC-BRKFST 07/02/20 05/21/21 Empagliflozin/Linagliptin 1 each PO QAM 05/12/21 05/21/21 [Glyxambi 25 mg-5 mg Tablet] Acetaminophen [Tylenol Extra 500 mg PO Q6H PRN 05/19/21 05/21/21 Strength] Previous Rx's Medication Instructions Recorded Pantoprazole [Protonix] 40 mg PO AC-BRKFST tablet. 07/06/20 Metoprolol Succinate (ER) [Toprol 50 mg PO DAILY@1200 30 Days #30 09/30/20 XL] tab.er.24h Allergies Allergy/AdvReac Type Severity Reaction Status Date / Time Sulfa (Sulfonamide Allergy Rash/Hives Verified 06/28/21 03:16 Antibiotics) sulfamethoxazole Allergy Rash/Hives Verified 06/28/21 03:16 [From Bactrim] trimethoprim [From Bactrim] Allergy Rash/Hives Verified 06/28/21 03:16 Review of Systems ROS Statement: Those systems with pertinent positive or pertinent negative responses have been documented in the HPI. ROS Other: All systems not noted in ROS Statement are negative. Past Medical History Past Medical History: Atrial Fibrillation, Coronary Artery Disease (CAD), Chest Pain / Angina, Heart Failure, Diabetes Mellitus, GERD/Reflux, GI Bleed, Hyperlipidemia, Hypertension, Myocardial Infarction (MD), Osteoarthritis (OA), Renal Disease, Vascular Disorder Additional Past Medical History / Comment(s): NIDDM type II, ckd-pt states doctor watches his renal functions, anemia-pt states told GI bleed but site never found, benign colon polyps, MD in 2017 d/t anemia, carotid artery disease, PAD, athritis in low back and bilateral hips, past gout R foot, gallstones. Last Myocardial Infarction Date:: 09/2016 History of Any Multi-Drug Resistant Organisms: None Reported Past Surgical History: Coronary Bypass/CABG, Heart Catheterization, Heart Catheterization With Stent, Orthopedic Surgery, Tonsillectomy Additional Past Surgical History / Comment(s): Multiple peripheral re vascularization procedures/stents/arthrectomies/ballooning, multiple aortagrams with runoffs, JOIE, PCI with stent, 2005 CABG 3 vessel, EGD, colonoscopies/benign polypectomies, R foot gout, cyst on back drained Past Anesthesia/Blood Transfusion Reactions: No Reported Reaction Date of Last Stent Placement:: 2014 Past Psychological History: No Psychological Hx Reported Smoking Status: Former smoker Past Alcohol Use History: None Reported Past Drug Use History: None Reported - Past Family History Father Family Medical History: Myocardial Infarction (MD) Additional Family Medical History / Comment(s): Father at the age of 65 yrs from heart problems. He had a MD in his 30s and had CABG Mother Family Medical History: Pulmonary Embolus General Exam General appearance: alert, in no apparent distress, other (This is a well- developed, well-nourished adult male patient in no acute distress) ENT exam: Present: normal exam, normal oropharynx, mucous membranes moist Respiratory exam: Present: normal lung sounds bilaterally. Absent: respiratory distress, wheezes, rales, rhonchi, stridor Cardiovascular Exam: Present: regular rate, normal rhythm, normal heart sounds. Absent: systolic murmur, diastolic murmur, rubs, gallop, clicks GI/Abdominal exam: Present: soft, tenderness (Midepigastric, right upper quadrant), normal bowel sounds. Absent: distended, guarding, rebound, rigid Neurological exam: Present: alert, oriented X3, CN II-XII intact Psychiatric exam: Present: normal affect, normal mood Skin exam: Present: warm, dry, intact, normal color. Absent: rash Course Vital Signs 06/28/21 06/28/21 06/28/21 03:15 03:39 04:08 Temperature 97.8 F Pulse Rate 67 69 Respiratory 19 18 Rate Blood Pressure 142/95 167/90 O2 Sat by Pulse 98 99 Oximetry 06/28/21 06/28/21 06:00 08:36 Temperature Pulse Rate 57 L 66 Respiratory 18 16 Rate Blood Pressure 148/76 124/55 O2 Sat by Pulse 94 L 94 L Oximetry - Reevaluation(s) Reevaluation #1: 06/28/21 04:42 Cardiac telemetry monitoring evaluated, patient is in a pattern of bigeminy with frequent PVCs. Medical Decision Making - Medical Decision Making 71-year-old male patient presented to the emergency department for midepigastric abdominal pain starting approximately one hour prior to arrival. Physical examination did reveal midepigastric tenderness. Initial lab work was unremarkable. He does have extensive cardiac history so we did want to get an additional troponin. Additional troponin was negative as well. A be discharged home with his primary care physician. In general surgeon. He does have multiple calcified gallstones which could be a cause for his symptoms. He is not currently vomiting his liver function and pancreatic enzymes are normal. He will be safe for discharge. Return parameters were discussed in detail. He verbalizes understanding and agrees with this plan. My attending is Dr. Cruz. - Lab Data Result diagrams: 06/28/21 04:07 06/28/21 04:07 Lab Results 06/28/21 06/28/21 06/28/21 Range/Units 04:07 04:07 04:07 WBC 10.6 (3.8-10.6) k/uL RBC 4.92 (4.30-5.90) m/uL Hgb 14.1 (13.0-17.5) gm/dL Hct 44.1 (39.0-53.0) % MCV 89.6 (80.0-100.0) fL MCH 28.7 (25.0-35.0) pg MCHC 32.0 (31.0-37.0) g/dL RDW 14.3 (11.5-15.5) % Plt Count 228 (150-450) k/uL MPV 7.1 Neutrophils % 73 % Lymphocytes % 19 % Monocytes % 5 % Eosinophils % 1 % Basophils % 1 % Neutrophils # 7.7 (1.3-7.7) k/uL Lymphocytes # 2.0 (1.0-4.8) k/uL Monocytes # 0.5 (0-1.0) k/uL Eosinophils # 0.2 (0-0.7) k/uL Basophils # 0.1 (0-0.2) k/uL Sodium 134 L (137-145) mmol/L Potassium 4.4 (3.5-5.1) mmol/L Chloride 97 L (98-107) mmol/L Carbon Dioxide 27 (22-30) mmol/L Anion Gap 10 mmol/L BUN 21 H (9-20) mg/dL Creatinine 1.45 H (0.66-1.25) mg/dL Est GFR (CKD-EPI)AfAm 55 (>60 ml/min/1.73 sqM) Est GFR (CKD-EPI)NonAf 48 (>60 ml/min/1.73 sqM) Glucose 220 H (74-99) mg/dL Plasma Lactic Acid Carson 1.2 (0.7-2.0) mmol/L Calcium 9.1 (8.4-10.2) mg/dL Total Bilirubin 0.4 (0.2-1.3) mg/dL AST 18 (17-59) U/L ALT 14 (4-49) U/L Alkaline Phosphatase 91 (38-126) U/L Troponin I (0.000-0.034) ng/mL Total Protein 7.1 (6.3-8.2) g/dL Albumin 4.3 (3.5-5.0) g/dL Lipase 219 (23-300) U/L 06/28/21 06/28/21 Range/Units 04:07 07:01 WBC (3.8-10.6) k/uL RBC (4.30-5.90) m/uL Hgb (13.0-17.5) gm/dL Hct (39.0-53.0) % MCV (80.0-100.0) fL MCH (25.0-35.0) pg MCHC (31.0-37.0) g/dL RDW (11.5-15.5) % Plt Count (150-450) k/uL MPV Neutrophils % % Lymphocytes % % Monocytes % % Eosinophils % % Basophils % % Neutrophils # (1.3-7.7) k/uL Lymphocytes # (1.0-4.8) k/uL Monocytes # (0-1.0) k/uL Eosinophils # (0-0.7) k/uL Basophils # (0-0.2) k/uL Sodium (137-145) mmol/L Potassium (3.5-5.1) mmol/L Chloride (98-107) mmol/L Carbon Dioxide (22-30) mmol/L Anion Gap mmol/L BUN (9-20) mg/dL Creatinine (0.66-1.25) mg/dL Est GFR (CKD-EPI)AfAm (>60 ml/min/1.73 sqM) Est GFR (CKD-EPI)NonAf (>60 ml/min/1.73 sqM) Glucose (74-99) mg/dL Plasma Lactic Acid Carson (0.7-2.0) mmol/L Calcium (8.4-10.2) mg/dL Total Bilirubin (0.2-1.3) mg/dL AST (17-59) U/L ALT (4-49) U/L Alkaline Phosphatase (38-126) U/L Troponin I <0.012 <0.012 (0.000-0.034) ng/mL Total Protein (6.3-8.2) g/dL Albumin (3.5-5.0) g/dL Lipase (23-300) U/L - EKG Data -: EKG Interpreted by Me EKG Comments: EKG obtained at 18 shows sinus rhythm with PACs. Ventricular rate is 62, NH interval 172, QRS duration 86, QT 4:30, QTC 436. No evidence of ST elevation or depression per - Radiology Data Radiology results: report reviewed, image reviewed CT abdomen and pelvis without contrast was obtained. Report reviewed in its entirety. Impression by Dr. Geller shows atherosclerotic vascular disease with extensive colonic diverticulosis without diverticulitis. Normal appendix. Cholelithiasis. Infiltrate and atelectasis at the lung bases at a family on the left side. Disposition Clinical Impression: Abdominal pain Disposition: HOME SELF-CARE Condition: Good Instructions (If sedation given, give patient instructions): Abdominal Pain (ED) Additional Instructions: Take medication as directed. Follow-up with surgeon for further evaluation of your gallbladder as soon as possible. Return to the emergency department her symptoms change or worsen. Is patient prescribed a controlled substance at d/c from ED?: No Referrals: Kristel Hall MD [Primary Care Provider] - 1-2 days Leticia Christianson MD [STAFF PHYSICIAN] - 1-2 days
--- NOTE | 2021-06-28 05:23 | CT ---
EXAMINATION TYPE: CT abdomen pelvis wo con DATE OF EXAM: 06/28/2021 COMPARISON: None HISTORY: Upper Abd Pain CT DLP: 1153.40 mGycm Automated exposure control for dose reduction was used. Images obtained from the diaphragm to the floor the pelvis with no contrast. There are some patchy infiltrate and atelectasis at both posterior lung bases. This appears worse on the left side. There is no pericardial effusion. Heart size is fairly normal. There is no pleural eff usion. There are large calcified gallstones. Stomach is intact. Spleen and pancreas appear intact. Liver claritza ws no focal defect. The bile ducts are not dilated. There is no adrenal mass. Kidneys show normal size. There is no hydronephrosis. Ureters are not dilat ed. There is no retroperitoneal adenopathy. Abdominal aorta is atheromatous. Bladder distends smoothl y. There is no inguinal hernia. There is no free fluid in the pelvis. There is mild prostate enlargem ent that measures 5 cm. There is no evidence of pelvic mass. There are numerous large bowel diverticula throughout the colon. Appendix is lateral and appears norm al. There is no mesenteric edema. There is no ascites or free air. There is no bowel obstruction. Abd ominal aorta is atheromatous. The lumbar vertebra have normal alignment. There is no compression fracture. Bony pelvis appears inta ct. The hip joints are intact. IMPRESSION: Atherosclerotic vascular disease. Extensive colonic diverticulosis without diverticulitis. Normal stacey endix. Cholelithiasis. Infiltrate and atelectasis at the lung bases that is mainly on the left side.
[2021-06-28] MEDS ORDERED: MAGNESIUM CITRATE 296 ML BOTTLE PO ONE (05:41)
[2021-06-28] MEDS ORDERED: ACET/COD 300 MG/30 MG STARTER PACK 6 TAB BTL PO STA (07:31)
[2021-06-28 08:36] VITALS: BP 124/55; PULSE 66; RESP 16
== END 2021-06-28 08:38 | disposition home or self-care (01) ==
LOC: EC 03:08
DX: R10.13 Epigastric pain (principal); I11.0 Hypertensive heart disease with heart failure; I50.9 Heart failure, unspecified; I48.91 Unspecified atrial fibrillation; I25.10 Atherosclerotic heart disease of native coronary artery without angina pectoris; I25.2 Old myocardial infarction; E11.9 Type 2 diabetes mellitus without complications; E78.5 Hyperlipidemia, unspecified; K21.9 Gastro-esophageal reflux disease without esophagitis; M19.90 Unspecified osteoarthritis, unspecified site; Z88.2 Allergy status to sulfonamides; Z88.1 Allergy status to other antibiotic agents; Z95.1 Presence of aortocoronary bypass graft; Z90.89 Acquired absence of other organs; Z87.891 Personal history of nicotine dependence
CPT/HCPCS: 99284; 96374; 96375; 96376; 96361 ×3; 93005; 80053; 83605; 83690; 84484; 85025; 74176; J2405; J1170

== ENCOUNTER 2021-08-06 11:30 | Day surgery (SDC) | payer MEDICARE ==
[2021-08-04 14:08] VITALS: BMI 33.5
--- NOTE | 2021-08-06 07:18 | P.GSHP ---
History of Present Illness H&P Date: 08/06/21 CHIEF COMPLAINT: Cholecystitis HISTORY OF PRESENT ILLNESS: The patient is a 71-year-old male who presents with history of epigastric including right upper quadrant abdominal pain. He underwent diagnostic studies for the gallbladder. Separately his clinical picture was consistent with cholecystitis. Now he presents for surgical intervention. PAST MEDICAL HISTORY: Please see list PAST SURGICAL HISTORY: Please see list MEDICATIONS: Please see list ALLERGIES: Denies. SOCIAL HISTORY: No illicit drug use or recent tobacco use FAMILY HISTORY: Pertinent for gallbladder disease REVIEW OF ORGAN SYSTEMS: CONSTITUTIONAL: No reports of fevers or chills. HEENT: Denies any troubles with the vision or hearing. PHYSICAL EXAM: VITAL SIGNS: Afebrile vital signs stable GENERAL: Well-developed pleasant male in no acute distress. HEENT: No scleral icterus. Extraocular movements grossly intact. Moist buccal mucosa. NECK: Supple without lymphadenopathy. CHEST: Unlabored respirations. Equal bilateral excursions. CARDIOVASCULAR: Regular rate regular rhythm rhythm. Distal 2+ pulses. ABDOMEN: Soft, nondistended. Tender along the epigastrium and right upper quadrant. MUSCULOSKELETAL: No clubbing, cyanosis, or edema. NEURO : No focal or lateralizing signs. Cranial nerves II-12 within normal limits. PSYCH: Alert and oriented to person, place and time. SKIN: Well perfused. Good skin turgor. ASSESSMENT: 1. Epigastric and right upper quadrant abdominal pain 2. Chronic cholecystitis PLAN: 1. Will need a robotic cholecystectomy possible open. Benefits and risks were described. 2. Heparin for DVT prophylaxis 5000 units. 3. Antibiotic prophylaxis. Past Medical History Past Medical History: Atrial Fibrillation, Coronary Artery Disease (CAD), Chest Pain / Angina, Heart Failure, Diabetes Mellitus, GERD/Reflux, GI Bleed, Hype rlipidemia, Hypertension, Myocardial Infarction (MA), Osteoarthritis (OA), Renal Disease, Vascular Disorder Additional Past Medical History / Comment(s): Chronic Kidney Disease, pt states doctor watches his renal functions, Anemia-pt states told GI bleed but site never found, benign colon polyps, MA in 2017 d/t anemia, PAD, athritis in low back and bilateral hips, hx gout, gallstones. Last Myocardial Infarction Date:: 09/2016 History of Any Multi-Drug Resistant Organisms: None Reported Past Surgical History: Coronary Bypass/CABG, Heart Catheterization, Heart Catheterization With Stent, Orthopedic Surgery, Tonsillectomy Additional Past Surgical History / Comment(s): "8 weeks ago cleaned out artery in right leg", Multiple peripheral revascularization procedures/stents/arthrectomies/ballooning, multiple aortagrams with runoffs, JOIE, PCI with stent, 2005 CABG 3 vessel, EGD, colonoscopies/benign polypectomies, right foot gout, cyst on back drained. Past Anesthesia/Blood Transfusion Reactions: No Reported Reaction Date of Last Stent Placement:: 2014 Past Psychological History: No Psychological Hx Reported Smoking Status: Former smoker Past Alcohol Use History: None Reported Additional Past Alcohol Use History / Comment(s): Started smoking about 1965, 2 PPD, quit in 2005. Pt has not drank alcohol in 3 yrs. Past Drug Use History: None Reported - Past Family History Father Family Medical History: Myocardial Infarction (MA) Additional Family Medical History / Comment(s): Father at the age of 65 yrs from heart problems. He had a MA in his 30s and had CABG. Mother Family Medical History: Pulmonary Embolus Medications and Allergies Home Medications Medication Instructions Recorded Confirmed Type Allopurinol [Zyloprim] 100 mg PO DAILY 03/16/15 08/04/21 History [place]-3 Fatty Acids/Fish Oil [Fish 1 cap PO BID 03/16/15 08/04/21 History Oil 1,000 mg Softgel] Nitroglycerin Sl Tabs [Nitrostat] 0.4 mg SL Q5M PRN 05/12/16 08/04/21 History Cyanocobalamin [Vitamin B-12 1,000 mcg IM Q60D 05/26/16 08/04/21 History Injection] Magnesium Oxide [Mag-Ox] 400 mg PO DAILY 08/19/16 08/04/21 History Metoprolol Succinate (ER) [Toprol 50 mg PO 1200 08/19/16 08/04/21 History XL] Montelukast [Singulair] 10 mg PO DAILY 08/31/17 08/04/21 History Ranolazine [Ranexa] 500 mg PO BID 08/31/17 08/04/21 History Pravastatin Sodium 80 mg PO HS 01/15/19 08/04/21 History Furosemide [Lasix] 20 mg PO BID 07/02/20 08/04/21 History Acetaminophen [Tylenol Extra 500 mg PO DIRECTED PRN 05/19/21 08/04/21 History Strength] Aspirin 81 mg PO DAILY 08/04/21 08/04/21 History Empagliflozin [Jardiance] 12.5 mg PO DAILY 08/04/21 08/04/21 History Metoprolol Succinate (ER) [Toprol 100 mg PO QAM 08/04/21 08/04/21 History XL] Pantoprazole [Protonix] 40 mg PO QAM 08/04/21 08/04/21 History Rivaroxaban [Xarelto] 15 mg PO DAILY 08/04/21 08/04/21 History Semaglutide [Ozempic] 0.5 mg SQ TH 08/04/21 08/04/21 History Allergies Allergy/AdvReac Type Severity Reaction Status Date / Time Sulfa (Sulfonamide Allergy Rash/Hives Verified 08/04/21 13:46 Antibiotics) sulfamethoxazole Allergy Rash/Hives Verified 08/04/21 13:46 [From Bactrim] trimethoprim [From Bactrim] Allergy Rash/Hives Verified 08/04/21 13:46
[~2021-08-06 11:30] MED LIST changes: +ACETAMINOPHEN TAB 500 MG TAB PO STA; +GABAPENTIN 300 MG CAP PO STA; +HEPARIN SODIUM,PORCINE/PF 5,000 UNIT/0.5 ML SYRINGE SQ PRN; -HYDROmorphone 0.5 MG/0.5 ML SYRINGE IVP PRN; +INDOCYANINE GREEN 25 MG VIAL IV STA; +LACTATED RINGERS 1,000 ML IV SCH; +MELOXICAM 7.5 MG TAB PO STA; +TAMSULOSIN 0.4 MG CAP.ER.24H PO STA
[2021-08-06 12:09] LABS: Glucose,Whole Blood 183 mg/dL (75-99)
[2021-08-06 12:49] LABS: Albumin 3.4 g/dL (3.5-5.0); Calcium 8.6 mg/dL (8.4-10.2); Potassium 4.6 mmol/L (3.5-5.1); Total Bilirubin 0.4 mg/dL (0.2-1.3)
[2021-08-06] MEDS ORDERED: NEOSTIGMINE 1 MG/ML 10 ML VIAL ONE (14:42)
[2021-08-06] MEDS ORDERED: GLYCOPYRROLATE 0.2 MG/ML 2 ML VIAL ONE (14:42)
[2021-08-06] MEDS ORDERED: .fentaNYL (PF) 50 MCG/ML 2 ML AMP ONE (14:42)
[2021-08-06] MEDS ORDERED: MIDAZOLAM 2 MG/2 ML VIAL ONE (14:42)
[2021-08-06] MEDS ORDERED: SUCCINYLCHOLINE CHLORIDE 100 MG/5 ML SYR IV ONE (14:42)
[2021-08-06] MEDS ORDERED: ROCURONIUM 10 MG/ML (5 ML VIAL) IV ONE (14:42)
[2021-08-06] MEDS ORDERED: PROPOFOL 10 MG/ML 20 ML VIAL IV ONE (14:42)
[2021-08-06] MEDS ORDERED: PHENYLEPHRINE-0.9% NACL SYG 1,000 MCG/10 ML SYRINGE ONE (14:42)
[2021-08-06] MEDS ORDERED: BUPIVACAIN-EPI 0.25%-1:200,000 30 ML VIAL SQ ONE (15:16)
[2021-08-06] MEDS ORDERED: LACTATED RINGERS 1,000 ML IV ONE ×2 (15:17→17:43)
[2021-08-06 16:50] VITALS: TEMP 96.8
[2021-08-06] MEDS: HYDROmorphone 0.5 MG/0.5 ML SYRINGE IVP PRN ×2 (17:21→17:36)
[2021-08-06 17:56] LABS: Glucose,Whole Blood 252 mg/dL (75-99)
[2021-08-06] MEDS ORDERED: INSULIN ASPART (NovoLOG) 100 UNIT/ML VIAL SQ ONE (17:58)
[2021-08-06 18:05] VITALS: BP 153/66; PULSE 60; RESP 15
--- NOTE | 2021-08-06 19:12 | P.OP ---
Date of Procedure: 08/06/21 Description of Procedure: SURGEON: LETICIA CHRISTIANSON MD PREOPERATIVE DIAGNOSES: 1. Chronic cholecystitis 2. Symptomatic gallstones 3. Ischemic cardiomyopathy with congestive heart failure 4. Obesity due to excess calories, BMI 33.4 5. Hypertensive heart disease with congestive heart failure 6. Diabetes type 2, [id number] 7. Chronic anticoagulation 8. History of heart catheterization with stent placement 9. Gout 10. Atrial fibrillation 11. Coronary artery disease 12. Chronic kidney disease, stage III due to hypertensive heart disease and diabetes 13. Peripheral vascular occlusive disease 14. Hyperlipidemia 15. History of myocardial infarction 16. Asthma with chronic obstructive pulmonary disease POSTOPERATIVE DIAGNOSES: 1. Acute on chronic cholecystitis with cystic duct obstruction due to gallstones 1. Chronic cholecystitis 2. Symptomatic gallstones 3. Ischemic cardiomyopathy with congestive heart failure 4. Obesity due to excess calories, BMI 33.4 5. Hypertensive heart disease with congestive heart failure 6. Diabetes type 2, [id number] 7. Chronic anticoagulation 8. History of heart catheterization with stent placement 9. Gout 10. Atrial fibrillation 11. Coronary artery disease 12. Chronic kidney disease, stage III due to hypertensive heart disease and diabetes 13. Peripheral vascular occlusive disease 14. Hyperlipidemia 15. History of myocardial infarction 16. Asthma with chronic obstructive pulmonary disease 17. Peritoneal adhesions, OPERATION: Robotic-assisted da Lynette Xi laparoscopic cholecystectomy, multiport with FIREFLY ESTIMATED BLOOD LOSS: 20 mL. SPECIMENS REMOVED: Gallbladder. COMPLICATIONS: None. OPERATIVE FINDINGS: 1. Acute on chronic cholecystitis 2. Indocyanine green drain confirms acute cholecystitis with lack of contrast in gallbladder 3. Common bile duct within normal limits, without dilation INDICATIONS: The patient is a 71 year-old male who presents with epigastric right upper quadrant pain, symptomatic gallstones. Surgical intervention with cholecystectomy was described. Robotic assisted laparoscopic approach was described. Benefits and risks of the procedure including but not limited to bleeding, infection, injury to the biliary tree was reviewed. Informed consent was obtained. DESCRIPTION OF PROCEDURE: Patient was brought to the operating room, placed in supine position. After general induction, the abdomen had been prepped and draped in standard sterile fashion. The robotic da Lynette XI system was primed. After a timeout protocol was performed, the patient had been prepped and draped in standard sterile fashion. The patient was injected with indocyanine green. A 5 mm 0 degrees laparoscopic trocar entry was performed along the left upper quadrant. The abdomen insufflated to 15 mmHg pressure which was tolerated well. Diagnostic laparoscopy demonstrated no injury to bowel viscera or mesentery. The liver surface was unremarkable. A moderately distended gallbladder was identified adding complexity to the case. Next, two 8 mm robotic ports were placed along the right upper abdomen. The camera 8-mm port was maintained along the epigastrium. Another 8 mm port was placed along the left upper abdominal wall after exchanging the 5 mm port. Please note that the ports were placed at least 10 to 15 cm away from the target anatomy of the gallbladder. The robot was docked along the left lateral abdomen. The patient was repositioned in reverse Trendelenburg position with the right side up. Using a grasper for arm 3, a grasper for arm 4, including hook cautery for arm 1, the robotic system was docked and primed as described. Instruments were interchanged by the education administrative assistant including hook cautery, Bovie cautery and clip appliers. I had sat at the console. The gallbladder was reflected towards the dome of the liver. The gallbladder was moderately distended adding complexity to the case. Moderate edema was found along the cystic triangle including infundibulum. Initial dissection was performed on the gallbladder infundibulum using indocyanine green to illuminate the cystic duct and common bile duct. Due to moderate distention of the infundibulum, dome down technique was performed removing the gallbladder from the hepatic fossa starting from the fundus towards the infundibulum. Using a sponge, the liver was reflected towards the diaphragm and starting at the gallbladder fundus, hook cautery was used to find the avascular plane between the liver and the gallbladder. As the gallbladder was dissected from the hepatic fossa, hemostasis was checked using vessel sealer along the posterior gallbladder. Next, indocyanine green was used to confirm the common bile duct as well as cystic duct. The cystic duct was short and dissection was performed at the junction of the cystic duct and infundibulum. The entire gallbladder was without contrast consistent with acute cholecystitis. The infundibulum was retracted laterally to expose the cystic duct away from the common bile duct. The cystic duct was dissected free from its surrounding tissue. FIREFLY was used to identify the cystic structures. A critical view of safety was obtained. Large PLASTIC clips were used throughout the entire case. Using a clip peoplesoft consultant, a clip was placed at the junction of the infundibulum and cystic duct. The cystic duct was divided using vessel sealer. Next, the cystic artery was divided using vessel sealer. Electro-Bovie cautery and vessel sealer was used to remove the gallbladder without decompression. Hemostasis was checked and found to be adequate. The robot was undocked. I re-scrubbed into the case. A 10 mm Endo Catch bag was used to remove the gallbladder in total via the left upper quadrant incision after widening the incision. The specimen was removed from the abdominal cavity. Keagan Chang and 0 Vicryl was used to close the fascial defect of the left upper quadrant. All pneumoperitoneum instruments were evacuated from the abdominal cavity. The incisions were cleansed using dilute hydrogen peroxide. The incisions were reapproximated using 4-0 Monocryl in an interrupted subcuticular fashion. Please note along the trocar sites, local anesthetic was placed as a field block prior to insertion of all instruments. Liquid glue was applied to the skin. At the end of the procedure needle, sponge, and instrument count had been verified correct by the surgical scrub tech. The patient was transferred to postanesthesia care unit in stable condition. Intraoperative films were shared with the patient's family who were pleased with the level of care. Plan - Discharge Summary Discharge Rx Participant: Yes New Discharge Prescriptions: New Acetaminophen Tab [Tylenol Tab] 1,000 mg PO Q6HR PRN #30 tablet PRN Reason: Pain Simethicone [Gas-X] 125 mg PO AC-TID PRN #20 capsule PRN Reason: Pain Continue Allopurinol [Zyloprim] 100 mg PO DAILY [place]-3 Fatty Acids/Fish Oil [Fish Oil 1,000 mg Softgel] 1 cap PO BID Nitroglycerin Sl Tabs [Nitrostat] 0.4 mg SL Q5M PRN PRN Reason: Chest Pain Cyanocobalamin [Vitamin B-12 Injection] 1,000 mcg IM Q60D Metoprolol Succinate (ER) [Toprol XL] 50 mg PO 1200 Magnesium Oxide [Mag-Ox] 400 mg PO DAILY Montelukast [Singulair] 10 mg PO DAILY Ranolazine [Ranexa] 500 mg PO BID Pravastatin Sodium 80 mg PO HS Furosemide [Lasix] 20 mg PO BID Pantoprazole [Protonix] 40 mg PO QAM Empagliflozin [Jardiance] 12.5 mg PO DAILY Metoprolol Succinate (ER) [Toprol XL] 100 mg PO QAM Rivaroxaban [Xarelto] 15 mg PO DAILY Aspirin 81 mg PO DAILY Semaglutide [Ozempic] 0.5 mg SQ TH Discontinued Acetaminophen [Tylenol Extra Strength] 500 mg PO DIRECTED PRN PRN Reason: Pain Discharge Medication List Allopurinol [Zyloprim] 100 mg PO DAILY 03/16/15 [History] [place]-3 Fatty Acids/Fish Oil [Fish Oil 1,000 mg Softgel] 1 cap PO BID 03/16/15 [History] Nitroglycerin Sl Tabs [Nitrostat] 0.4 mg SL Q5M PRN 05/12/16 [History] Cyanocobalamin [Vitamin B-12 Injection] 1,000 mcg IM Q60D 05/26/16 [History] Magnesium Oxide [Mag-Ox] 400 mg PO DAILY 08/19/16 [History] Metoprolol Succinate (ER) [Toprol XL] 50 mg PO 1200 08/19/16 [History] Montelukast [Singulair] 10 mg PO DAILY 08/31/17 [History] Ranolazine [Ranexa] 500 mg PO BID 08/31/17 [History] Pravastatin Sodium 80 mg PO HS 01/15/19 [History] Furosemide [Lasix] 20 mg PO BID 07/02/20 [History] Aspirin 81 mg PO DAILY 08/04/21 [History] Empagliflozin [Jardiance] 12.5 mg PO DAILY 08/04/21 [History] Metoprolol Succinate (ER) [Toprol XL] 100 mg PO QAM 08/04/21 [History] Pantoprazole [Protonix] 40 mg PO QAM 08/04/21 [History] Rivaroxaban [Xarelto] 15 mg PO DAILY 08/04/21 [History] Semaglutide [Ozempic] 0.5 mg SQ TH 08/04/21 [History] Acetaminophen Tab [Tylenol Tab] 1,000 mg PO Q6HR PRN #30 tablet 08/06/21 [Rx] Simethicone [Gas-X] 125 mg PO AC-TID PRN #20 capsule 08/06/21 [Rx] Follow up Appointment(s)/Referral(s): Leticia Christianson MD [STAFF PHYSICIAN] - 08/10/21 (Telehealth) Patient Instructions/Handouts: *[facility] - Anesthesia Discharge Instructions, *[facility] - Managing Your Pain After Surgery Without Opioids, Low Fat Diet (DC), Laparoscopic Cholecystectomy (DC) Activity/Diet/Wound Care/Special Instructions: Recommend low-fat diet for the next 2 days. No lifting over 10 pounds in 2 weeks until Aug 20. May shower. No bath tub soaks for two weeks until Aug 20. Diet as tolerated. Use Tylenol, simethicone and ibuprofen or Aleve scheduled for the next 24-48 hours for best pain relief. Use ice along incisions for today to prevent swelling. Discharge Disposition: HOME SELF-CARE
== END 2021-08-06 18:32 | disposition home or self-care (01) ==
LOC: OR 11:30
PROVIDERS: ATTEND Surgery Plastic and Reconstructive Surgery
DX: K80.12 Calculus of gallbladder with acute and chronic cholecystitis without obstruction (principal); K66.0 Peritoneal adhesions (postprocedural) (postinfection); I48.91 Unspecified atrial fibrillation; I25.10 Atherosclerotic heart disease of native coronary artery without angina pectoris; I13.0 Hypertensive heart and chronic kidney disease with heart failure and stage 1 through stage 4 chronic kidney disease, or unspecified chronic kidney disease; E11.22 Type 2 diabetes mellitus with diabetic chronic kidney disease; N18.30 Chronic kidney disease, stage 3 unspecified; I50.9 Heart failure, unspecified; E11.9 Type 2 diabetes mellitus without complications; K21.9 Gastro-esophageal reflux disease without esophagitis; E78.5 Hyperlipidemia, unspecified; I25.5 Ischemic cardiomyopathy; E66.09 Other obesity due to excess calories; Z68.33 Body mass index [BMI] 33.0-33.9, adult; I25.2 Old myocardial infarction; M19.90 Unspecified osteoarthritis, unspecified site; D64.9 Anemia, unspecified; M10.9 Gout, unspecified; Z95.1 Presence of aortocoronary bypass graft; Z95.5 Presence of coronary angioplasty implant and graft; Z95.820 Peripheral vascular angioplasty status with implants and grafts; Z98.890 Other specified postprocedural states; Z87.891 Personal history of nicotine dependence; Z82.49 Family history of ischemic heart disease and other diseases of the circulatory system; Z79.01 Long term (current) use of anticoagulants; Z79.899 Other long term (current) drug therapy; Z88.2 Allergy status to sulfonamides
CPT/HCPCS: 88304; 80053; 47563; J2250; J1100; J2710; J0690; J2405; J3010; J2370; J0330; J2704; J1170; J1644

== ENCOUNTER 2021-12-17 07:11 | Day surgery (SDC) | payer MEDICARE ==
[2021-12-15 12:14] VITALS: BMI 34.0
[~2021-12-17 07:11] MED LIST changes: -ACETAMINOPHEN TAB 500 MG TAB PO STA; -DEXAMETHASONE SOD PHOSPHATE 4 MG/ML 1 ML VIAL IV ONE; -GABAPENTIN 300 MG CAP PO STA; -HEPARIN SODIUM,PORCINE/PF 5,000 UNIT/0.5 ML SYRINGE SQ PRN; -INDOCYANINE GREEN 25 MG VIAL IV STA; -MELOXICAM 7.5 MG TAB PO STA; -MIDAZOLAM 2 MG/2 ML VIAL IV PRN; -ONDANSETRON 4 MG/2 ML VIAL IVP ONE; -TAMSULOSIN 0.4 MG CAP.ER.24H PO STA
[2021-12-17 07:41] VITALS: TEMP 97.5
[2021-12-17 07:52] LABS: Glucose,Whole Blood 144 mg/dL (75-99)
[2021-12-17] MEDS ORDERED: PROPOFOL 10 MG/ML 20 ML VIAL IV ONE (08:22)
[2021-12-17] MEDS ORDERED: LIDOCAINE 1% INJ 10MG/ML (20 ML MDV) ONE (08:22)
--- NOTE | 2021-12-17 08:39 | P.PCN ---
Date of Procedure: 12/17/21 Procedure(s) Performed: BRIEF HISTORY: Patient is a 71-year-old pleasant white male scheduled for an elective colonoscopy as a part of evaluation of prior history of colon polyps. Last colonoscopy was 5 years ago. PROCEDURE PERFORMED: Colonoscopy with snare polypectomy and Endo Clip placement PREOPERATIVE DIAGNOSIS: History of colon polyps. IV sedation per Anesthesia. PROCEDURE: After informed consent was obtained, the patient, was brought into the endoscopy unit. IV sedation was administered by Anesthesia under continuous monitoring. Digital rectal examination was normal. Initially the Olympus CF-160 flexible video colonoscope was then inserted in the rectum, gradually advanced into the cecum without any difficulty. Careful examination was performed as the scope was gradually being withdrawn. Ileocecal valve and the appendiceal orifice were visualized and appeared normal. Prep was fair.. Mucosa of the cecum, ascending colon, transverse colon, descending colon, sigmoid colon, and rectum appeared normal. In the mid rectum there was a 1.5 cm flat polyp seen which was removed by snare polypectomy followed by Endo Clip placement. Moderate sigmoid diverticulosis. Retroflexion was performed in the rectum and no lesions were seen. The patient tolerated the procedure well. IMPRESSION: 1.5 cm flat rectal polyp status post snare polypectomy followed by Endo Clip placement moderate sigmoid diverticulosis RECOMMENDATIONS: Findings of this examination were discussed with the patientas well as his family. He was advised to follow with the biopsy results. If the biopsy reveals adenoma he can have a repeat colonoscopy in 3 years].
[2021-12-17 09:09] VITALS: BP 137/67; PULSE 71; RESP 18
== END 2021-12-17 09:19 | disposition home or self-care (01) ==
LOC: ORWHC2ENDO 07:11
PROVIDERS: ATTEND Internal Medicine Gastroenterology
DX: K57.30 Diverticulosis of large intestine without perforation or abscess without bleeding (principal); D12.8 Benign neoplasm of rectum; Z86.010 Personal history of colon polyps; I11.0 Hypertensive heart disease with heart failure; I50.9 Heart failure, unspecified; I49.9 Cardiac arrhythmia, unspecified; I25.10 Atherosclerotic heart disease of native coronary artery without angina pectoris; I25.2 Old myocardial infarction; Z95.5 Presence of coronary angioplasty implant and graft; I48.91 Unspecified atrial fibrillation; Z95.1 Presence of aortocoronary bypass graft; E11.9 Type 2 diabetes mellitus without complications; I73.9 Peripheral vascular disease, unspecified; Z79.4 Long term (current) use of insulin; Z79.899 Other long term (current) drug therapy
CPT/HCPCS: 45382; 45385; 88305; J2001; J2704

== ENCOUNTER 2022-02-11 05:39 | Day surgery (SDC) | payer MEDICARE ==
[2022-02-10 11:54] VITALS: BMI 34.0
[2022-02-11] MEDS ORDERED: HEPARIN SODIUM,PORCINE 10,000 UNIT in SODIUM CHLORIDE 0.9% 1,000 ML IRRIGATION PRN (06:03)
[2022-02-11] MEDS ORDERED: SODIUM CHLORIDE 0.9% 1,000 ML in EMPTY BAG 1 BAG IV ONE (06:03)
[2022-02-11] MEDS ORDERED: ALPRAZolam 0.25 MG TAB PO PRN (06:03)
[2022-02-11] MEDS ORDERED: HEPARIN SODIUM,PORCINE 2,500 UNIT in SODIUM CHLORIDE 0.9% 250 ML IRRIGATION PRN (06:03)
[2022-02-11] MEDS ORDERED: ALPRAZolam 0.5 MG TAB PO PRN (06:03)
[2022-02-11] MEDS ORDERED: ASPIRIN 325 MG TAB PO PRN (06:03)
[2022-02-11] MEDS ORDERED: ZOLPIDEM 5 MG TAB PO PRN (06:03)
[2022-02-11] MEDS ORDERED: SODIUM CHLORIDE 0.9% 1,000 ML IV ONE ×2 (06:07→12:00)
[2022-02-11] MEDS ORDERED: SODIUM CHLORIDE 0.9% 250 ML IV ONE (06:07)
[2022-02-11 06:18] VITALS: RESP 16; TEMP 98.6
[2022-02-11 06:18] LABS: Glucose,Whole Blood 158 mg/dL (70-110)
[2022-02-11] MEDS ORDERED: HEPARIN SODIUM 1,000 UN/ML (10ML VL) ONE (07:16)
[2022-02-11] MEDS ORDERED: fentaNYL (PF) 50 MCG/ML 2 ML AMP ONE (07:17)
[2022-02-11] MEDS ORDERED: fentaNYL (PF) 50 MCG/ML 2 ML AMP IV ONE (07:37)
[2022-02-11] MEDS ORDERED: MIDAZOLAM 2 MG/2 ML VIAL IV ONE (07:37)
[2022-02-11] MEDS ORDERED: LIDOCAINE 1% INJ 10MG/ML (30 ML VIAL-PF) SQ ONE (07:39)
[2022-02-11] MEDS ORDERED: IOPAMIDOL-250 100ML BTL INTRAARTER ONE (08:58)
[2022-02-11] MEDS ORDERED: INSULIN NPH 300 UNIT/3 ML VIAL SQ SCH ×2 (09:45→10:00)
[2022-02-11] MEDS ORDERED: SODIUM CHLORIDE 0.9% 1,000 ML IV SCH (10:00)
--- NOTE | 2022-02-11 10:01 | P.OP ---
Date of Procedure: 02/11/22 Description of Procedure: Pre-Op Dx: Right lower extremity claudication/ischemia Cameron classification 4 Post-Op Dx: Right SFA in stent stenosis, TPT trunk stenosis >90%, and AT focal occlusion Procedure: 1. Ultrasound guided Left femoral artery access 2. Right lower extremity selective angiogram 3. Percutaenous balloon angioplasty of the in stent stenosis and tibial peroneal trunk 5. Percutaneous closure of left femoral artery with Vascade device Surgeon: Brice Meeks DO Anesthesia: conscious sedation with local x 120 minutes EBL: 15 mL Complications: none Condition: Stable Findings: Severe right SFA in-stent stenosis greater than 90%, severe TPT trunk stenosis greater than 90% with anterior tibial artery focal occlusion with reconstitution immediately. Multiple areas of calcified atherosclerotic disease throughout. Indication for procedure: 72-year-old gentleman with history of lower extremity claudication recently presented to the office with worsening complaints of right lower extremity pain with ambulation as well as at night consistent with rest pain. He underwent arterial Doppler which demonstrated decrease ABIs when compared to last visit and therefore was scheduled for right lower extremity angiogram with possible intervention. He does have significant kidney disease and therefore selective right lower extremity angiogram will be performed. Operative narrative: After written and informed consent was obtained the patient all risks, benefits and complications were described patient is brought to the [facility] [employer] and laid supine position. The area of the left groin was prepped and draped in usual sterile fashion. Timeout was performed in normal fashion. Utilizing ultrasound the left femoral artery was accessed and a 6 F sheath was placed. 035 Glidewire was then placed into the aorta followed by an RBI catheter and the right iliac was accessed in an up and over fashion. Selective angiogram was then obtained of the right lower extremity demonstrating severe stenosis in stent on the right SFA and TPT trunk as well as a focal occlusion of the anterior tibial artery. Patient was given heparin and followed with ACTs. An 035 Glidewire advantage was then placed in an up and over fashion and the 6 F short sheath was removed and replaced with an up and over 6 F sheath. Utilizing 035 Glidewire and quick cross catheter the lesion was crossed and selective angiogram distally was obtained demonstrating good intraluminal access. Balloon angioplasty with a 5 x 40 mm also reversed balloon was performed in stent to improve lumen. A distal angiogram was then obtained demonstrating 90% stenosis of the TPT trunk as well as a focal occlusion. Due to the fact of this is at the bifurcation 014 wires were utilized and a body wire fashion and attempt to cross both lesions. The TPT trunk lesion was crossed but the anterior tibial artery occlusion was unable to be crossed at that time. Utilizing a 3.5 mm x 40mm chocolate balloon balloon angioplasty was performed at the TPT trunk. Angiogram was obtained demonstrating improved lumen. Utilizing a 4 x 40mm drug-eluting balloon balloon and left to the TPT trunk was completed. Angiogram was obtained demonstrating improved lumen of the TPT and attention was then placed back to the in-stent stenosis. Balloon angioplasty was then performed with a drug-eluting 7 x 40 mm balloon. Final angiogram demonstrated resolution of the in-stent stenosis at the SFA as well as improvement of the TPT trunk stenosis. There is still occlusion at the anterior tibial artery with brisk reconstitution and distal flow. All guidewires and catheters were then removed the sheath was removed and replaced with a short 6 F sheath and utilizing a Vascade closure device the access was closed. Pressure was placed for hemostasis. The patient tolerated the procedure well and had multiphasic DP and PT signal and was sent to recovery. Plan - Discharge Summary Discharge Rx Participant: Yes New Discharge Prescriptions: No Action allopurinoL [Zyloprim] 100 mg PO DAILY [place]-3 Fatty Acids/Fish Oil [Fish Oil 1,000 mg Softgel] 1 cap PO BID Nitroglycerin Sl Tabs [Nitrostat] 0.4 mg SL Q5M PRN PRN Reason: Chest Pain Cyanocobalamin [Vitamin B-12 Injection] 1,000 mcg IM Q60D Montelukast [Singulair] 10 mg PO DAILY Ranolazine [Ranexa] 500 mg PO BID Pravastatin Sodium 80 mg PO HS Empagliflozin [Jardiance] 12.5 mg PO DAILY Ferrous Sulfate [Feosol] 325 mg PO DAILY Insulin NPH [humuLIN N] 32 unit SQ QAM Metoprolol Succinate (ER) [Toprol Xl] 100 mg PO QAM Rivaroxaban [Xarelto] 15 mg PO DAILY Aspirin 81 mg PO DAILY Cholecalciferol (Vitamin D3) [Vitamin D3 (125 MCG = 5,000 IU)] 125 mcg PO HS Famotidine [Pepcid] 40 mg PO HS Magnesium Oxide [Magnesium] 500 mg PO 1200 Metoprolol Succinate (ER) [Toprol Xl] 50 mg PO 1200 Pantoprazole [Protonix] 40 mg PO DAILY Discharge Medication List [place]-3 Fatty Acids/Fish Oil [Fish Oil 1,000 mg Softgel] 1 cap PO BID 03/16/15 [History] allopurinoL [Zyloprim] 100 mg PO DAILY 03/16/15 [History] Nitroglycerin Sl Tabs [Nitrostat] 0.4 mg SL Q5M PRN 05/12/16 [History] Cyanocobalamin [Vitamin B-12 Injection] 1,000 mcg IM Q60D 05/26/16 [History] Montelukast [Singulair] 10 mg PO DAILY 08/31/17 [History] Ranolazine [Ranexa] 500 mg PO BID 08/31/17 [History] Pravastatin Sodium 80 mg PO HS 01/15/19 [History] Aspirin 81 mg PO DAILY 08/04/21 [History] Empagliflozin [Jardiance] 12.5 mg PO DAILY 08/04/21 [History] Rivaroxaban [Xarelto] 15 mg PO DAILY 08/04/21 [History] Cholecalciferol (Vitamin D3) [Vitamin D3 (125 MCG = 5,000 IU)] 125 mcg PO HS 02/10/22 [History] Famotidine [Pepcid] 40 mg PO HS 02/10/22 [History] Ferrous Sulfate [Feosol] 325 mg PO DAILY 02/10/22 [History] Insulin NPH [humuLIN N] 32 unit SQ QAM 02/10/22 [History] Magnesium Oxide [Magnesium] 500 mg PO 1200 02/10/22 [History] Metoprolol Succinate (ER) [Toprol Xl] 50 mg PO 1200 02/10/22 [History] Metoprolol Succinate (ER) [Toprol Xl] 100 mg PO QAM 02/10/22 [History] Pantoprazole [Protonix] 40 mg PO DAILY 02/10/22 [History] Follow up Appointment(s)/Referral(s): Brice Meeks DO [STAFF PHYSICIAN] - 2 Weeks (CALL OFFICE ON MONDAY FOR FOLLOW UP APPOINTMENT. (OFFICE CLOSED ON MONDAY OF PROCEDURE). ) Patient Instructions/Handouts: Angiography (DC), Procedural Sedation (ED) Activity/Diet/Wound Care/Special Instructions: NO DRIVING TODAY OR TOMORROW. OK TO SHOWER TOMORROW BUT NO SOAKING IN TUB, POOLS, LAKES ECT. SIGNS OF INFECTION IE: FEVER, RASH, DRAINAGE FROM PUNCTURE SITE, SWELLING FROM PUNCTURE SITE CONTACT DOCTOR FOR FURTHER INSTRUCTIONS OR RETURN TO ER. FOR HEAVY BLEEDING, APPLY FIRM DIRECT PRESSURE AND RETURN TO ER. DO NOT DRIVE SELF. MEDICATIONS DIRECTED BY DOCTOR. DO NOT CHANGE WITHOUT DISCUSSING WITH DOCTOR. AVOID HEAVY LIFTING GREATER THAN 10LBS, PUSHING PULLING STRAINING STAIRS FOR 3 DAYS TO AVOID RISK OF BLEEDING IN PUNCTURE SITE.
[2022-02-11] MEDS ORDERED: CLOPIDOGREL 75 MG TAB PO STA (10:16)
[2022-02-11] MEDS ORDERED: CLOPIDOGREL 75 MG TAB ONE (10:16)
[2022-02-11 10:23] LABS: Glucose,Whole Blood 134 mg/dL (70-110)
--- NOTE | 2022-02-11 11:13 | IR ---
Fluoroscopy HISTORY: Pain 31.5 minutes fluoroscopy time supplied to the referring clinician. 750 intraoperative C-arm images d ocument the procedure. See dictated report from vascular surgery.
[2022-02-11 13:18] VITALS: BP 144/66; PULSE 64
== END 2022-02-11 14:00 | disposition home or self-care (01) ==
LOC: CATHCVL 05:39
PROVIDERS: ATTEND Surgery
DX: I70.213 Atherosclerosis of native arteries of extremities with intermittent claudication, bilateral legs (principal); T82.856A Stenosis of peripheral vascular stent, initial encounter; I48.91 Unspecified atrial fibrillation; E78.5 Hyperlipidemia, unspecified; E11.51 Type 2 diabetes mellitus with diabetic peripheral angiopathy without gangrene; E78.00 Pure hypercholesterolemia, unspecified; I25.10 Atherosclerotic heart disease of native coronary artery without angina pectoris; I11.0 Hypertensive heart disease with heart failure; I50.9 Heart failure, unspecified; E66.9 Obesity, unspecified; Z68.34 Body mass index [BMI] 34.0-34.9, adult; Z79.01 Long term (current) use of anticoagulants; Z79.84 Long term (current) use of oral hypoglycemic drugs; Z79.899 Other long term (current) drug therapy; Z88.2 Allergy status to sulfonamides; Z95.1 Presence of aortocoronary bypass graft; Z98.890 Other specified postprocedural states
CPT/HCPCS: 37224; 37228; 76937; C1894 ×2; C1769 ×7; C1725 ×2; C1887; C2623; C1760; J2250; J2001; J3010; J1644; Q9966; 36245; 75710

== ENCOUNTER 2022-02-24 18:44 | Emergency (ER) | payer MEDICARE ==
[2022-02-24 19:19] VITALS: BP 173/68; PULSE 68; RESP 18; TEMP 97.7
[2022-02-24] MEDS ORDERED: BACITRACIN OINT 1 EACH PACKET TOPICAL ONE (19:42)
--- NOTE | 2022-02-24 19:48 | ED ---
Wound/Laceration HPI - General Chief Complaint: Wound/Laceration Stated Complaint: Arm lac Time Seen by Provider: 02/24/22 19:30 Source: patient, family, RN notes reviewed, old records reviewed Mode of arrival: ambulatory - History of Present Illness Initial Comments: 72-year-old well-appearing male patient presents to emergency room with family member complaining of skin tear to the left hand. Patient states at 6:00 this evening he was working on his car when he injured it. Patient states tetanus shot is up-to-date but he was concerned about risk for infection which is why he came in today. 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) Place: outdoors Patient Tetanus UTD: Yes Context: accidental Associated Symptoms: none - Related Data Home Medications Medication Instructions Recorded Confirmed [place]-3 Fatty Acids/Fish Oil [Fish 1 cap PO BID 03/16/15 02/11/22 Oil 1,000 mg Softgel] allopurinoL [Zyloprim] 100 mg PO DAILY 03/16/15 02/11/22 Nitroglycerin Sl Tabs [Nitrostat] 0.4 mg SL Q5M PRN 05/12/16 02/10/22 Cyanocobalamin [Vitamin B-12 1,000 mcg IM Q60D 05/26/16 02/11/22 Injection] Montelukast [Singulair] 10 mg PO DAILY 08/31/17 02/11/22 Ranolazine [Ranexa] 500 mg PO BID 08/31/17 02/11/22 Pravastatin Sodium 80 mg PO HS 01/15/19 02/11/22 Aspirin 81 mg PO DAILY 08/04/21 02/11/22 Empagliflozin [Jardiance] 12.5 mg PO DAILY 08/04/21 02/11/22 Rivaroxaban [Xarelto] 15 mg PO DAILY 08/04/21 02/10/22 Cholecalciferol (Vitamin D3) 125 mcg PO HS 02/10/22 02/11/22 [Vitamin D3 (125 MCG = 5,000 IU)] Famotidine [Pepcid] 40 mg PO HS 02/10/22 02/11/22 Ferrous Sulfate [Feosol] 325 mg PO DAILY 02/10/22 02/11/22 Insulin NPH [humuLIN N] 32 unit SQ QAM 02/10/22 02/11/22 Magnesium Oxide [Magnesium] 500 mg PO 1200 02/10/22 02/11/22 Metoprolol Succinate (ER) [Toprol 50 mg PO 1200 02/10/22 02/11/22 Xl] Metoprolol Succinate (ER) [Toprol 100 mg PO QAM 02/10/22 02/11/22 Xl] Pantoprazole [Protonix] 40 mg PO DAILY 02/10/22 02/11/22 Previous Rx's Medication Instructions Recorded Cephalexin [Keflex] 500 mg PO Q8HR 5 Days #15 cap 02/24/22 Allergies Allergy/AdvReac Type Severity Reaction Status Date / Time Sulfa (Sulfonamide Allergy Rash/Hives Verified 02/10/22 11:37 Antibiotics) sulfamethoxazole Allergy Rash/Hives Verified 02/10/22 11:37 [From Bactrim] trimethoprim [From Bactrim] Allergy Rash/Hives Verified 02/10/22 11:37 Review of Systems ROS Statement: Those systems with pertinent positive or pertinent negative responses have been documented in the HPI. ROS Other: All systems not noted in ROS Statement are negative. Past Medical History Past Medical History: Atrial Fibrillation, Coronary Artery Disease (CAD), Heart Failure, Diabetes Mellitus, GERD/Reflux, GI Bleed, Hyperlipidemia, Hypertension, Myocardial Infarction (ME), Osteoarthritis (OA), Renal Disease, Vascular Disorder Additional Past Medical History / Comment(s): Chronic Kidney Disease, pt states doctor watches his renal functions, Anemia-pt states told GI bleed but site never found, [place] in 2017 d/t anemia, PAD, athritis in low back and bilateral hips, hx gout, diarrhea, Last Myocardial Infarction Date:: 09/2016 History of Any Multi-Drug Resistant Organisms: None Reported Past Surgical History: Cholecystectomy, Coronary Bypass/CABG, Heart Catheterization, Heart Catheterization With Stent, Orthopedic Surgery, Tonsillectomy Additional Past Surgical History / Comment(s): "cleaned out artery in right leg", Multiple peripheral revascularization procedures/stents/arthrectomies/ballooning, multiple aortagrams with runoffs, JOIE, , 2006 CABG 3 vessel, EGD, colonoscopies, right foot gout, cyst on back drained. 2 cardiac stents Past Anesthesia/Blood Transfusion Reactions: No Reported Reaction Date of Last Stent Placement:: 2013 Past Psychological History: No Psychological Hx Reported Smoking Status: Former smoker Past Alcohol Use History: None Reported Past Drug Use History: None Reported - Past Family History Father Family Medical History: Myocardial Infarction (ME) Additional Family Medical History / Comment(s): He had a ME in his 30s and had CABG. Mother Family Medical History: Pulmonary Embolus General Exam Limitations: no limitations General appearance: alert Respiratory exam: Present: normal lung sounds bilaterally. Absent: respiratory distress, accessory muscle use Cardiovascular Exam: Present: regular rate Extremities exam: Present: normal capillary refill. Absent: tenderness Left Hand Wrist exam: Present: tenderness, ecchymosis, other (2 skin tears dorsal surface of the left hand) Neuro motor exam: Present: wrist extension intact Neurosensory exam: Present: radial nerve intact, ulnar nerve intact, median nerve intact Vascular: Present: normal capillary refill. Absent: vascular compromise Neurological exam: Present: alert, oriented X3 Psychiatric exam: Present: normal affect, normal mood Skin exam: Present: warm, dry. Absent: cyanosis, diaphoretic Course Vital Signs 02/24/22 19:12 Temperature 97.7 F Pulse Rate 68 Respiratory 18 Rate Blood Pressure 173/68 O2 Sat by Pulse 94 L Oximetry Medical Decision Making - Medical Decision Making Well-appearing 71-year-old male presents emergency room with complaints of a skin tear to dorsal surface of his left hand. There is no active bleeding. He has full range of motion. Patient states that he did wash the wound with peroxide prior to arrival. He is concerned for infection since he sustained injury while working on his car. Patient was given a prescription for Keflex prophylactically. He states his tetanus shot is up-to-date. The wound was dressed with bacitracin and nonadhering dressing. He was directed to keep the wound covered with bacitracin dressing for the next 3 days. Follow up with his primary care doctor next week and return to the emergency room with any new or concerning symptoms including increased pain, fevers, redness or drainage. Disposition Clinical Impression: Laceration, Skin tear of hand without complication Disposition: HOME SELF-CARE Condition: Good Instructions (If sedation given, give patient instructions): Skin Tear (ED) Additional Instructions: Bacitracin dressing twice a day with a nonadhering dressing. Take antibiotics as prescribed. Return to the emergency room with any new or concerning symptoms including increased pain, drainage or fevers. Prescriptions: Cephalexin [Keflex] 500 mg PO Q8HR 5 Days #15 cap Is patient prescribed a controlled substance at d/c from ED?: No Referrals: Kristel Hall MD [Primary Care Provider] - 1-2 days Time of Disposition: 19:44
== END 2022-02-24 20:05 | disposition home or self-care (01) ==
LOC: EC 18:44
DX: S61.412A Laceration without foreign body of left hand, initial encounter (principal); I25.2 Old myocardial infarction; I48.91 Unspecified atrial fibrillation; E11.22 Type 2 diabetes mellitus with diabetic chronic kidney disease; I13.0 Hypertensive heart and chronic kidney disease with heart failure and stage 1 through stage 4 chronic kidney disease, or unspecified chronic kidney disease; K21.9 Gastro-esophageal reflux disease without esophagitis; E78.5 Hyperlipidemia, unspecified; I50.9 Heart failure, unspecified; N18.9 Chronic kidney disease, unspecified; M19.90 Unspecified osteoarthritis, unspecified site; I25.10 Atherosclerotic heart disease of native coronary artery without angina pectoris; Z88.2 Allergy status to sulfonamides; Z88.1 Allergy status to other antibiotic agents; Z79.899 Other long term (current) drug therapy; Z79.84 Long term (current) use of oral hypoglycemic drugs; Z79.4 Long term (current) use of insulin; Z79.82 Long term (current) use of aspirin; Z79.02 Long term (current) use of antithrombotics/antiplatelets; Z87.891 Personal history of nicotine dependence; X58.XXXA Exposure to other specified factors, initial encounter; Y92.89 Other specified places as the place of occurrence of the external cause
CPT/HCPCS: 99282

== ENCOUNTER → 2022-04-27 | Day surgery (SDC) | payer MEDICARE ==
[2022-04-26 11:22] VITALS: BMI 34.8
[~2022-04-27] MED LIST changes: +HEPARIN SODIUM 1,000 UN/ML (10ML VL) IV ONE; +HEPARIN SODIUM 1,000 UN/ML (10ML VL) ONE; +INSULIN NPH 300 UNIT/3 ML VIAL SQ SCH; +IOPAMIDOL-250 100ML BTL INTRAARTER ONE; -LACTATED RINGERS 1,000 ML IV SCH; +LIDOCAINE 1% INJ 10MG/ML (30 ML VIAL-PF) SQ ONE; +SODIUM CHLORIDE 0.9% 1,000 ML IV ONE; +SODIUM CHLORIDE 0.9% 1,000 ML in EMPTY BAG 1 BAG IV ONE
[2022-04-27 06:22] LABS: Glucose,Whole Blood 132 mg/dL (70-110)
[2022-04-27 06:28] VITALS: RESP 16; TEMP 97.9
[2022-04-27] MEDS: MIDAZOLAM 2 MG/2 ML VIAL IV ONE ×2 (07:42→08:04)
[2022-04-27 09:00] LABS: Glucose,Whole Blood 149 mg/dL (70-110)
--- NOTE | 2022-04-27 09:29 | IR ---
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 Fluoroscopy was provided to the referring clinician.
[2022-04-27 11:50] VITALS: BP 143/70; PULSE 58
== END | disposition home or self-care (01) ==
LOC: CATHCVL 05:47
PROVIDERS: ATTEND Surgery
DX: I70.213 Atherosclerosis of native arteries of extremities with intermittent claudication, bilateral legs (principal); I25.10 Atherosclerotic heart disease of native coronary artery without angina pectoris; I11.0 Hypertensive heart disease with heart failure; E78.00 Pure hypercholesterolemia, unspecified; E66.9 Obesity, unspecified; E11.51 Type 2 diabetes mellitus with diabetic peripheral angiopathy without gangrene
CPT/HCPCS: 37225; 75625; 75710; C1769 ×4; C1894 ×2; C1887; C1714; C1884; C2623; C1760; J2250; J2001; J1644; Q9966

== ENCOUNTER 2022-06-06 17:31 | Emergency (ER) | payer MEDICARE ==
[2022-06-06 18:01] VITALS: TEMP 98.3
[2022-06-06 18:28] LABS: Basophils % (A) 0 %; Eosinophils # (A) 0.1 k/uL (0-0.7); Eosinophils % (A) 2 %; HCT 32.6 % (39.0-53.0); Hypochromasia Slight; Lymphocytes # (A) 2.3 k/uL (1.0-4.8); Lymphocytes % (A) 27 %; MCH 30.1 pg (25.0-35.0); MCHC 33.2 g/dL (31.0-37.0); Mean Platelet Volume 8.5; Monocytes # (A) 0.5 k/uL (0-1.0); Monocytes % (A) 6 %; Neutrophils # (A) 5.2 k/uL (1.3-7.7); Neutrophils % (A) 63 %; Platelet Count 218 k/uL (150-450); RDW 14.1 % (11.5-15.5); WBC 8.3 k/uL (3.8-10.6)
[2022-06-06 18:34] LABS: Albumin 4.2 g/dL (3.5-5.0); Calcium 8.6 mg/dL (8.4-10.2); Partial Thromboplastin Time 26.2 sec (22.0-30.0); Potassium 4.7 mmol/L (3.5-5.1); Prothrombin Time 11.3 sec (9.0-12.0); Total Bilirubin 0.3 mg/dL (0.2-1.3); Total Protein 6.4 g/dL (6.3-8.2)
--- NOTE | 2022-06-06 18:39 | XR ---
EXAMINATION TYPE: XR chest 2V DATE OF EXAM: 06/06/2022 COMPARISON: 09/27/2020 HISTORY: Chest pain. Short of breath. TECHNIQUE: FINDINGS: Heart is normal. There is slight coarsening of interstitial markings. There are sternal wir es. No pulmonary consolidation. No heart failure. Bony thorax is intact. IMPRESSION: No active cardiopulmonary disease. Mild pulmonary fibrotic changes. Interstitial infiltra dylan significantly improved compared to old exam.
[2022-06-06 18:44] LABS: HGB 10.8 gm/dL (13.0-17.5); MCV 90.6 fL (80.0-100.0)
--- NOTE | 2022-06-06 22:14 | ED ---
GI Bleed HPI - General Chief complaint: GI Bleed Stated complaint: GI Bleed Time Seen by Provider: 06/06/22 22:11 Source: patient, RN notes reviewed, old records reviewed Mode of arrival: ambulatory Limitations: no limitations - History of Present Illness Initial comments: This is a 72-year-old male to the emergency department for evaluation. Patient presents today for evaluation of lightheadedness dizziness and blood in stool. Patient has not been feeling well and increased shortness of breath especially with exertion as of late. Patient is on anticoagulation, Plavix, Xarelto complaint: melena -: unknown Radiation: none Quality: painless Consistency: constant Improves with: none Worsens with: none Context: history of GI bleed, blood thinners, near syncope Associated Symptoms: denies other symptoms Treatments Prior to Arrival: none - Related Data Home Medications Medication Instructions Recorded Confirmed [place]-3 Fatty Acids/Fish Oil [Fish 1 cap PO BID 03/16/15 04/27/22 Oil 1,000 mg Softgel] allopurinoL [Zyloprim] 100 mg PO DAILY 03/16/15 04/27/22 Nitroglycerin Sl Tabs [Nitrostat] 0.4 mg SL Q5M PRN 05/12/16 04/26/22 Cyanocobalamin [Vitamin B-12 1,000 mcg IM Q60D 05/26/16 04/26/22 Injection] Montelukast [Singulair] 10 mg PO DAILY 08/31/17 04/27/22 Ranolazine [Ranexa] 500 mg PO BID 08/31/17 04/27/22 Pravastatin Sodium 80 mg PO HS 01/15/19 04/27/22 Empagliflozin [Jardiance] 12.5 mg PO DAILY 08/04/21 04/26/22 Rivaroxaban [Xarelto] 15 mg PO HS 08/04/21 04/26/22 Cholecalciferol (Vitamin D3) 125 mcg PO HS 02/10/22 04/27/22 [Vitamin D3 (125 MCG = 5,000 IU)] Famotidine [Pepcid] 40 mg PO HS 02/10/22 04/27/22 Ferrous Sulfate [Feosol] 325 mg PO DAILY 02/10/22 04/27/22 Insulin NPH [humuLIN N] 48 unit SQ QAM 02/10/22 04/27/22 Magnesium Oxide [Magnesium] 500 mg PO 1200 02/10/22 04/27/22 Metoprolol Succinate (ER) [Toprol 50 mg PO 1200 02/10/22 04/27/22 Xl] Metoprolol Succinate (ER) [Toprol 100 mg PO QAM 02/10/22 04/27/22 Xl] Pantoprazole [Protonix] 40 mg PO DAILY 02/10/22 04/27/22 Clopidogrel [Plavix] 75 mg PO DAILY 04/26/22 04/26/22 Allergies Allergy/AdvReac Type Severity Reaction Status Date / Time Sulfa (Sulfonamide Allergy Rash/Hives Verified 06/06/22 18:01 Antibiotics) sulfamethoxazole Allergy Rash/Hives Verified 06/06/22 18:01 [From Bactrim] trimethoprim [From Bactrim] Allergy Rash/Hives Verified 06/06/22 18:01 Review of Systems ROS Statement: Those systems with pertinent positive or pertinent negative responses have been documented in the HPI. ROS Other: All systems not noted in ROS Statement are negative. Past Medical History Past Medical History: Atrial Fibrillation, Coronary Artery Disease (CAD), Heart Failure, Diabetes Mellitus, GERD/Reflux, GI Bleed, Hyperlipidemia, Hypertension, Myocardial Infarction ([place]), Osteoarthritis (OA), Renal Disease, Vascular Disorder Additional Past Medical History / Comment(s): Chronic Kidney Disease, pt states doctor watches his renal functions, Anemia-pt states told GI bleed but site never found, [place] in 2017 d/t anemia, PAD, athritis in low back and bilateral hips, hx gout, diarrhea, Last Myocardial Infarction Date:: 09/2016 History of Any Multi-Drug Resistant Organisms: None Reported Past Surgical History: Cholecystectomy, Coronary Bypass/CABG, Heart Catheterizat ion, Heart Catheterization With Stent, Orthopedic Surgery, Tonsillectomy Additional Past Surgical History / Comment(s): "cleaned out artery in right leg", Multiple peripheral revascularization procedures/stents/arthrectomies/ballooning, multiple aortagrams with runoffs, JOIE, , 2006 CABG 3 vessel, EGD, colonoscopies, right foot gout, cyst on back drained. 2 cardiac stents Past Anesthesia/Blood Transfusion Reactions: No Reported Reaction Date of Last Stent Placement:: 2013 Past Psychological History: No Psychological Hx Reported Smoking Status: Former smoker - Past Family History Father Family Medical History: Myocardial Infarction ([place]) Additional Family Medical History / Comment(s): He had a [place] in his 30s and had CABG. Mother Family Medical History: Pulmonary Embolus General Exam General appearance: alert, in no apparent distress Head exam: Present: atraumatic, normocephalic, normal inspection Eye exam: Present: normal appearance, PERRL, EOMI. Absent: scleral icterus, conjunctival injection, periorbital swelling ENT exam: Present: normal exam, mucous membranes moist Neck exam: Present: normal inspection. Absent: tenderness, meningismus, lymphadenopathy Respiratory exam: Present: normal lung sounds bilaterally. Absent: respiratory distress, wheezes, rales, rhonchi, stridor Cardiovascular Exam: Present: regular rate, normal rhythm, normal heart sounds. Absent: systolic murmur, diastolic murmur, rubs, gallop, clicks GI/Abdominal exam: Present: soft, normal bowel sounds. Absent: distended, tenderness, guarding, rebound, rigid Extremities exam: Present: normal inspection, full ROM, normal capillary refill. Absent: tenderness, pedal edema, joint swelling, calf tenderness Back exam: Present: normal inspection Neurological exam: Present: alert, oriented X3, CN II-XII intact Psychiatric exam: Present: normal affect, normal mood Skin exam: Present: warm, dry, intact, normal color. Absent: rash Course Vital Signs 06/06/22 17:58 Temperature 98.3 F Pulse Rate 71 Respiratory 18 Rate Blood Pressure 165/67 O2 Sat by Pulse 98 Oximetry - Reevaluation(s) Reevaluation #1: 06/07/22 00:09 Medical record is reviewed Reevaluation #2: 06/07/22 00:09 Patient felt mildly syncopal earlier feels improved currently Reevaluation #3: 06/07/22 00:09 Patient has no abdominal pain. Reevaluation #4: 06/07/22 00:10 Patient informed results and questions are answered - Consultations Consultation #1: Spoke with [facility] who agree to accept patient is transferred Medical Decision Making - Medical Decision Making 69 female DF for evaluation. Patient having significant GI bleed. Patient to the last step and half prior testing and dropped to pints in 3 hours here in the ER. Patient be transferred from [facility] due to lack of GI coverage here - Lab Data Result diagrams: 06/06/22 22:14 06/06/22 18:13 Lab Results 06/06/22 06/06/22 06/06/22 Range/Units 18:13 18:13 18:13 WBC 8.3 (3.8-10.6) k/uL RBC 3.60 L (4.30-5.90) m/uL Hgb 10.8 L D (13.0-17.5) gm/dL Hct 32.6 L (39.0-53.0) % MCV 90.6 D (80.0-100.0) fL MCH 30.1 (25.0-35.0) pg MCHC 33.2 (31.0-37.0) g/dL RDW 14.1 (11.5-15.5) % Plt Count 218 (150-450) k/uL MPV 8.5 Neutrophils % 63 % Lymphocytes % 27 % Monocytes % 6 % Eosinophils % 2 % Basophils % 0 % Neutrophils # 5.2 (1.3-7.7) k/uL Lymphocytes # 2.3 (1.0-4.8) k/uL Monocytes # 0.5 (0-1.0) k/uL Eosinophils # 0.1 (0-0.7) k/uL Basophils # 0.0 (0-0.2) k/uL Hypochromasia Slight PT 11.3 (9.0-12.0) sec INR 1.0 (<1.2) APTT 26.2 (22.0-30.0) sec Sodium 137 (137-145) mmol/L Potassium 4.7 (3.5-5.1) mmol/L Chloride 101 (98-107) mmol/L Carbon Dioxide 26 (22-30) mmol/L Anion Gap 10 mmol/L BUN 28 H (9-20) mg/dL Creatinine 1.61 H (0.66-1.25) mg/dL Est GFR (CKD-EPI)AfAm 49 (>60 ml/min/1.73 sqM) Est GFR (CKD-EPI)NonAf 42 (>60 ml/min/1.73 sqM) Glucose 180 H (74-99) mg/dL Plasma Lactic Acid Carson (0.7-2.0) mmol/L Calcium 8.6 (8.4-10.2) mg/dL Total Bilirubin 0.3 (0.2-1.3) mg/dL AST 18 (17-59) U/L ALT 20 (4-49) U/L Alkaline Phosphatase 99 (38-126) U/L Troponin I (0.000-0.034) ng/mL Total Protein 6.4 (6.3-8.2) g/dL Albumin 4.2 (3.5-5.0) g/dL Blood Type Blood Type Recheck Bld Type Recheck Status Antibody Screen Spec Expiration Date 06/06/22 06/06/22 06/06/22 Range/Units 18:13 18:13 18:13 WBC (3.8-10.6) k/uL RBC (4.30-5.90) m/uL Hgb (13.0-17.5) gm/dL Hct (39.0-53.0) % MCV (80.0-100.0) fL MCH (25.0-35.0) pg MCHC (31.0-37.0) g/dL RDW (11.5-15.5) % Plt Count (150-450) k/uL MPV Neutrophils % % Lymphocytes % % Monocytes % % Eosinophils % % Basophils % % Neutrophils # (1.3-7.7) k/uL Lymphocytes # (1.0-4.8) k/uL Monocytes # (0-1.0) k/uL Eosinophils # (0-0.7) k/uL Basophils # (0-0.2) k/uL Hypochromasia PT (9.0-12.0) sec INR (<1.2) APTT (22.0-30.0) sec Sodium (137-145) mmol/L Potassium (3.5-5.1) mmol/L Chloride (98-107) mmol/L Carbon Dioxide (22-30) mmol/L Anion Gap mmol/L BUN (9-20) mg/dL Creatinine (0.66-1.25) mg/dL Est GFR (CKD-EPI)AfAm (>60 ml/min/1.73 sqM) Est GFR (CKD-EPI)NonAf (>60 ml/min/1.73 sqM) Glucose (74-99) mg/dL Plasma Lactic Acid Carson 0.9 (0.7-2.0) mmol/L Calcium (8.4-10.2) mg/dL Total Bilirubin (0.2-1.3) mg/dL AST (17-59) U/L ALT (4-49) U/L Alkaline Phosphatase (38-126) U/L Troponin I 0.012 (0.000-0.034) ng/mL Total Protein (6.3-8.2) g/dL Albumin (3.5-5.0) g/dL Blood Type B Positive Blood Type Recheck B Pos Bld Type Recheck Status No Antibody Screen NEGATIVE Spec Expiration Date 06/09/2022231206/06/22 Range/Units 22:14 WBC 6.5 (3.8-10.6) k/uL RBC 2.93 L (4.30-5.90) m/uL Hgb 8.7 L D (13.0-17.5) gm/dL Hct 26.5 L (39.0-53.0) % MCV 90.5 (80.0-100.0) fL MCH 29.9 (25.0-35.0) pg MCHC 33.0 (31.0-37.0) g/dL RDW 14.2 (11.5-15.5) % Plt Count 177 (150-450) k/uL MPV 8.0 Neutrophils % % Lymphocytes % % Monocytes % % Eosinophils % % Basophils % % Neutrophils # (1.3-7.7) k/uL Lymphocytes # (1.0-4.8) k/uL Monocytes # (0-1.0) k/uL Eosinophils # (0-0.7) k/uL Basophils # (0-0.2) k/uL Hypochromasia Slight PT (9.0-12.0) sec INR (<1.2) APTT (22.0-30.0) sec Sodium (137-145) mmol/L Potassium (3.5-5.1) mmol/L Chloride (98-107) mmol/L Carbon Dioxide (22-30) mmol/L Anion Gap mmol/L BUN (9-20) mg/dL Creatinine (0.66-1.25) mg/dL Est GFR (CKD-EPI)AfAm (>60 ml/min/1.73 sqM) Est GFR (CKD-EPI)NonAf (>60 ml/min/1.73 sqM) Glucose (74-99) mg/dL Plasma Lactic Acid [place] (0.7-2.0) mmol/L Calcium (8.4-10.2) mg/dL Total Bilirubin (0.2-1.3) mg/dL AST (17-59) U/L ALT (4-49) U/L Alkaline Phosphatase (38-126) U/L Troponin I (0.000-0.034) ng/mL Total Protein (6.3-8.2) g/dL Albumin (3.5-5.0) g/dL Blood Type Blood Type Recheck Bld Type Recheck Status Antibody Screen Spec Expiration Date Critical Care Time Critical Care Time: Yes Total Critical Care Time: 31 Disposition Clinical Impression: GI bleed, Acute blood loss anemia, Atrial fibrillation with RVR, Coagulopathy Disposition: OTHER INSTITUTION NOT DEFINED Condition: Serious Is patient prescribed a controlled substance at d/c from ED?: No Referrals: Kristel Hall MD [Primary Care Provider] - 1-2 days Time of Disposition: 00:30 - Out of Hospital Transfer - Req. Specs Out of Hospital Transfer - Requested Specifics: Other Emergency Center ([facility])
[2022-06-06] MEDS ORDERED: SODIUM CHLORIDE 0.9% 1,000 ML IV SCH (22:15)
[2022-06-06] MEDS ORDERED: PANTOPRAZOLE 40 MG/10 ML VIAL IVP STA (22:15)
[2022-06-06] MEDS ORDERED: ONDANSETRON 4 MG/2 ML VIAL IVP STA (22:15)
[2022-06-06 23:16] LABS: HCT 26.5 % (39.0-53.0); Hypochromasia Slight; MCH 29.9 pg (25.0-35.0); MCV 90.5 fL (80.0-100.0); Platelet Count 177 k/uL (150-450); RBC 2.93 m/uL (4.30-5.90); RDW 14.2 % (11.5-15.5); WBC 6.5 k/uL (3.8-10.6)
[2022-06-06 23:17] LABS: HGB 8.7 gm/dL (13.0-17.5)
[2022-06-07] MEDS ORDERED: Kcentra PER PHARMACY 1 EACH MISC MISCELLANE PRN (00:06)
[2022-06-07] MEDS ORDERED: PHYTONADIONE 5 MG in SODIUM CHLORIDE 0.9% 50 ML IVPB ONE (00:07)
[2022-06-07] MEDS ORDERED: HUMAN PROTHROMBIN COMPLX IV ONE (00:45)
[2022-06-07] MEDS ORDERED: HUMAN PROTHROMBIN COMPLX 500 UNIT/16 ML VIAL IV ONE (00:45)
[2022-06-07 01:28] VITALS: BP 144/74; PULSE 87; RESP 16
[2022-06-07] MEDS ORDERED: ONDANSETRON 4 MG/2 ML VIAL IVP PRN (06:00)
[2022-06-07] MEDS ORDERED: PANTOPRAZOLE 40 MG/10 ML VIAL IV SCH (09:00)
== END 2022-06-07 01:28 | disposition other institution (70) ==
LOC: EC 17:31
DX: K92.1 Melena (principal); D68.9 Coagulation defect, unspecified; I48.91 Unspecified atrial fibrillation; I11.0 Hypertensive heart disease with heart failure; E78.5 Hyperlipidemia, unspecified; I10 Essential (primary) hypertension; Z79.899 Other long term (current) drug therapy; Z87.891 Personal history of nicotine dependence; Z88.2 Allergy status to sulfonamides; Z88.8 Allergy status to other drugs, medicaments and biological substances
CPT/HCPCS: 99291; 96365; 96361; 96375; 36415; 86900; 86901; 80053; 83605; 84484; 85025; 85027; 85610; 85730; 86850; 71046; J3430; J2405; J7168; C9113

== ENCOUNTER 2022-06-20 18:05 | Inpatient (IN) | payer MEDICARE ==
--- NOTE | 2022-06-20 19:17 | XR ---
EXAMINATION TYPE: XR chest 2V DATE OF EXAM: 06/20/2022 COMPARISON: 06/06/2022 HISTORY: Short of breath TECHNIQUE: FINDINGS: Heart is normal. Lungs are clear of consolidation. There is mild blunting of the costophren ic angles posteriorly. There are no hilar masses. There are sternal wires. IMPRESSION: There are small pleural effusions which are new compared to the old exam. No heart failur e seen. Normal heart size.
--- NOTE | 2022-06-20 20:39 | ED ---
General Adult HPI - General Chief complaint: Shortness of Breath Stated complaint: sob Time Seen by Provider: 06/20/22 20:33 Source: patient Mode of arrival: ambulatory Limitations: no limitations - History of Present Illness Initial comments: Dictation was produced using [employer]ent[employer] dictation software. please excuse any grammatical, word or spelling errors. Chief Complaint: 72-year-old male recently admitted to the hospital for GI bleed presents to the ER for shortness of breath History of Present Illness: 72-year-old male he has multiple comorbidities. He is admitted to the hospital recently for GI bleed. Patient was seen here on June 06. He is seen in the ER and then transferred to [facility] due to lack of GI coverage. Patient was hospitalized for several days. Patient had his elk was discontinued. Recently they did a vacation to [place]. They flew on an airplane. By the time he got to [place] he noticed that he is having significant exertional dyspnea. They flew back from [place] today. He landed in [place] [facility] and drove straight to the emergency department record. Patient has extensive cardiac history. His anticoagulation was discontinued last week in light of GI bleed. Denies any pain. No nausea vomiting and no diaphoresis. The ROS documented in this emergency department record has been reviewed and confirmed by me. Those systems with pertinent positive or negative responses have been documented in the HPI. All other systems are other negative and/or noncontributory. PHYSICAL EXAM: General Impression: Alert and oriented x3, not in acute distress HEENT: Normocephalic atraumatic, extra-ocular movements intact, pupils equal and reactive to light bilaterally, mucous membranes moist. Cardiovascular: Heart regular rate and rhythm Chest: Able to complete full sentences, no retractions, no tachypnea, clear to auscultation of the lungs Abdomen: abdomen soft, non-tender, non-distended, no organomegaly Musculoskeletal: Pulses present and equal in all extremities, 2+ pitting edema to bilateral lower extremities Motor: no focal deficits noted Neurological: CN II-XII grossly intact, no focal motor or sensory deficits noted Skin: Intact with no visualized rashes Psych: Normal affect and mood ED course: 72-year-old male presents emergency department for dyspnea. Signs upon arrival shows findings within acceptable limits. EKG similar to previous EKG. Patient reevaluated at bedside 11:30 PM found to be stable medical condition. Repeat EKG shows no dynamic changes. Patient does not appear to be dyspneic at the bedside. Denies any chest pressure chest symptoms. Laboratory evaluation obtained. CBC, coag panel is unremarkable. D-dimer is 1.8. Metabolic panel is within acceptable limits. Troponin is above his baseline is 0.318. Patient given aspirin. Case is discussed with Dr. Cheney. Dr. Cheney recommends starting patient on heparin despite recent hospital admission for GI bleed. Clinical presentation concerning for acute coronary syndrome, unstable angina/non-ST segment elevation [place]. EKG interpretation: Ventricular rate 69, A. fib, QRS 110, QTC 4:15. no QTC prolongation, no ST or T-wave changes noted. EKG compared to 06/06/2022 showing no changes. Overall, this EKG is unremarkable - Related Data Home Medications Medication Instructions Recorded Confirmed [place]-3 Fatty Acids/Fish Oil [Fish 1 cap PO BID 03/16/15 06/20/22 Oil 1,000 mg Softgel] allopurinoL [Zyloprim] 100 mg PO DAILY 03/16/15 06/20/22 Nitroglycerin Sl Tabs [Nitrostat] 0.4 mg SL Q5M PRN 05/12/16 06/20/22 Montelukast [Singulair] 10 mg PO DAILY 08/31/17 06/20/22 Ranolazine [Ranexa] 500 mg PO BID 08/31/17 06/20/22 Pravastatin Sodium 80 mg PO HS 01/15/19 06/20/22 Empagliflozin [Jardiance] 12.5 mg PO DIRECTED 08/04/21 06/20/22 Cholecalciferol (Vitamin D3) 125 mcg PO DAILY 02/10/22 06/20/22 [Vitamin D3 (125 MCG = 5,000 IU)] Insulin NPH [humuLIN N] 52 unit SQ DAILY 02/10/22 06/20/22 Magnesium Oxide [Magnesium] 1,000 mg PO DAILY@1200 02/10/22 06/20/22 Metoprolol Succinate (ER) [Toprol 150 mg PO DAILY 02/10/22 06/20/22 Xl] Pantoprazole [Protonix] 40 mg PO DAILY 02/10/22 06/20/22 Aspirin EC [Ecotrin Low Dose] 81 mg PO DAILY 06/20/22 06/20/22 Allergies Allergy/AdvReac Type Severity Reaction Status Date / Time Sulfa (Sulfonamide Allergy Rash/Hives Verified 06/20/22 22:43 Antibiotics) sulfamethoxazole Allergy Rash/Hives Verified 06/20/22 22:43 [From Bactrim] trimethoprim [From Bactrim] Allergy Rash/Hives Verified 06/20/22 22:43 Review of Systems ROS Statement: Those systems with pertinent positive or pertinent negative responses have been documented in the HPI. ROS Other: All systems not noted in ROS Statement are negative. Past Medical History Past Medical History: Atrial Fibrillation, Coronary Artery Disease (CAD), Heart Failure, Diabetes Mellitus, GERD/Reflux, GI Bleed, Hyperlipidemia, Hypertension, Myocardial Infarction ([place]), Osteoarthritis (OA), Renal Disease, Vascular Disorder Additional Past Medical History / Comment(s): Chronic Kidney Disease, pt states doctor watches his renal functions, Anemia-pt states told GI bleed but site never found, [place] in 2017 d/t anemia, PAD, athritis in low back and bilateral hips, hx gout, diarrhea, Last Myocardial Infarction Date:: 09/2016 History of Any Multi-Drug Resistant Organisms: None Reported Past Surgical History: Cholecystectomy, Coronary Bypass/CABG, Heart C atheterization, Heart Catheterization With Stent, Orthopedic Surgery, Tonsillectomy Additional Past Surgical History / Comment(s): "cleaned out artery in right leg", Multiple peripheral revascularization procedures/stents/arthrectomies/ballooning, multiple aortagrams with runoffs, JOIE, , 2005 CABG 3 vessel, EGD, colonoscopies, right foot gout, cyst on back drained. 2 cardiac stents Past Anesthesia/Blood Transfusion Reactions: No Reported Reaction Date of Last Stent Placement:: 2013 Past Psychological History: No Psychological Hx Reported Smoking Status: Former smoker Past Alcohol Use History: None Reported Past Drug Use History: None Reported - Past Family History Father Family Medical History: Myocardial Infarction ([place]) Additional Family Medical History / Comment(s): He had a [place] in his 30s and had CABG. Mother Family Medical History: Pulmonary Embolus General Exam Limitations: no limitations Course Vital Signs 06/20/22 18:18 Temperature 98.2 F Pulse Rate 76 Respiratory 16 Rate Blood Pressure 139/75 O2 Sat by Pulse 99 Oximetry Medical Decision Making - Lab Data Result diagrams: 06/20/22 20:28 06/20/22 20:28 Lab Results 06/20/22 06/20/22 06/20/22 Range/Units 20:28 20:28 20:28 WBC 7.8 (3.8-10.6) k/uL RBC 3.47 L (4.30-5.90) m/uL Hgb 10.0 L (13.0-17.5) gm/dL Hct 30.8 L (39.0-53.0) % MCV 88.7 D (80.0-100.0) fL MCH 28.9 (25.0-35.0) pg MCHC 32.6 (31.0-37.0) g/dL RDW 13.7 (11.5-15.5) % Plt Count 296 (150-450) k/uL MPV 7.7 Neutrophils % 61 % Lymphocytes % 28 % Monocytes % 6 % Eosinophils % 2 % Basophils % 1 % Neutrophils # 4.7 (1.3-7.7) k/uL Lymphocytes # 2.2 (1.0-4.8) k/uL Monocytes # 0.5 (0-1.0) k/uL Eosinophils # 0.1 (0-0.7) k/uL Basophils # 0.0 (0-0.2) k/uL Hypochromasia Marked Poikilocytosis Moderate PT 11.0 (9.0-12.0) sec INR 1.0 (<1.2) APTT 22.2 (22.0-30.0) sec D-Dimer 1.80 H (<0.60) mg/L FEU Sodium 138 (137-145) mmol/L Potassium 4.4 (3.5-5.1) mmol/L Chloride 100 (98-107) mmol/L Carbon Dioxide 26 (22-30) mmol/L Anion Gap 12 mmol/L BUN 21 H (9-20) mg/dL Creatinine 1.48 H (0.66-1.25) mg/dL Est GFR (CKD-EPI)AfAm 54 (>60 ml/min/1.73 sqM) Est GFR (CKD-EPI)NonAf 46 (>60 ml/min/1.73 sqM) Glucose 111 H (74-99) mg/dL Plasma Lactic Acid Carson (0.7-2.0) mmol/L Calcium 8.8 (8.4-10.2) mg/dL Total Bilirubin 0.4 (0.2-1.3) mg/dL AST 34 (17-59) U/L ALT 82 H (4-49) U/L Alkaline Phosphatase 132 H (38-126) U/L Troponin I (0.000-0.034) ng/mL NT-Pro-B Natriuret Pep pg/mL Total Protein 6.6 (6.3-8.2) g/dL Albumin 4.2 (3.5-5.0) g/dL Influenza Type A (PCR) (Not Detectd) Influenza Type B (PCR) (Not Detectd) RSV (PCR) (Not Detectd) SARS-CoV-2 (PCR) (Not Detectd) 06/20/22 06/20/22 06/20/22 Range/Units 20:28 20:28 20:49 WBC (3.8-10.6) k/uL RBC (4.30-5.90) m/uL Hgb (13.0-17.5) gm/dL Hct (39.0-53.0) % MCV (80.0-100.0) fL MCH (25.0-35.0) pg MCHC (31.0-37.0) g/dL RDW (11.5-15.5) % Plt Count (150-450) k/uL MPV Neutrophils % % Lymphocytes % % Monocytes % % Eosinophils % % Basophils % % Neutrophils # (1.3-7.7) k/uL Lymphocytes # (1.0-4.8) k/uL Monocytes # (0-1.0) k/uL Eosinophils # (0-0.7) k/uL Basophils # (0-0.2) k/uL Hypochromasia Poikilocytosis PT (9.0-12.0) sec INR (<1.2) APTT (22.0-30.0) sec D-Dimer (<0.60) mg/L FEU Sodium (137-145) mmol/L Potassium (3.5-5.1) mmol/L Chloride (98-107) mmol/L Carbon Dioxide (22-30) mmol/L Anion Gap mmol/L BUN (9-20) mg/dL Creatinine (0.66-1.25) mg/dL Est GFR (CKD-EPI)AfAm (>60 ml/min/1.73 sqM) Est GFR (CKD-EPI)NonAf (>60 ml/min/1.73 sqM) Glucose (74-99) mg/dL Plasma Lactic Acid Carson (0.7-2.0) mmol/L Calcium (8.4-10.2) mg/dL Total Bilirubin (0.2-1.3) mg/dL AST (17-59) U/L ALT (4-49) U/L Alkaline Phosphatase (38-126) U/L Troponin I 0.318 H* (0.000-0.034) ng/mL NT-Pro-B Natriuret Pep 3470 pg/mL Total Protein (6.3-8.2) g/dL Albumin (3.5-5.0) g/dL Influenza Type A (PCR) Not Detected (Not Detectd) Influenza Type B (PCR) Not Detected (Not Detectd) RSV (PCR) Not Detected (Not Detectd) SARS-CoV-2 (PCR) Not Detected (Not Detectd) 06/20/22 Range/Units 21:02 WBC (3.8-10.6) k/uL RBC (4.30-5.90) m/uL Hgb (13.0-17.5) gm/dL Hct (39.0-53.0) % MCV (80.0-100.0) fL MCH (25.0-35.0) pg MCHC (31.0-37.0) g/dL RDW (11.5-15.5) % Plt Count (150-450) k/uL MPV Neutrophils % % Lymphocytes % % Monocytes % % Eosinophils % % Basophils % % Neutrophils # (1.3-7.7) k/uL Lymphocytes # (1.0-4.8) k/uL Monocytes # (0-1.0) k/uL Eosinophils # (0-0.7) k/uL Basophils # (0-0.2) k/uL Hypochromasia Poikilocytosis PT (9.0-12.0) sec INR (<1.2) APTT (22.0-30.0) sec D-Dimer (<0.60) mg/L FEU Sodium (137-145) mmol/L Potassium (3.5-5.1) mmol/L Chloride (98-107) mmol/L Carbon Dioxide (22-30) mmol/L Anion Gap mmol/L BUN (9-20) mg/dL Creatinine (0.66-1.25) mg/dL Est GFR (CKD-EPI)AfAm (>60 ml/min/1.73 sqM) Est GFR (CKD-EPI)NonAf (>60 ml/min/1.73 sqM) Glucose (74-99) mg/dL Plasma Lactic Acid Carson 1.1 (0.7-2.0) mmol/L Calcium (8.4-10.2) mg/dL Total Bilirubin (0.2-1.3) mg/dL AST (17-59) U/L ALT (4-49) U/L Alkaline Phosphatase (38-126) U/L Troponin I (0.000-0.034) ng/mL NT-Pro-B Natriuret Pep pg/mL Total Protein (6.3-8.2) g/dL Albumin (3.5-5.0) g/dL Influenza Type A (PCR) (Not Detectd) Influenza Type B (PCR) (Not Detectd) RSV (PCR) (Not Detectd) SARS-CoV-2 (PCR) (Not Detectd) Critical Care Time Critical Care Time: Yes Total Critical Care Time: 33 Disposition Clinical Impression: Unstable angina Disposition: ADMITTED IP TO THIS [facility] Condition: Serious Referrals: Kristel Hall MD [Primary Care Provider] - 1-2 days Decision Time: 23:43
[2022-06-20 20:42] LABS: Basophils % (A) 1 %; Eosinophils # (A) 0.1 k/uL (0-0.7); Eosinophils % (A) 2 %; HCT 30.8 % (39.0-53.0); Hypochromasia Marked; Lymphocytes # (A) 2.2 k/uL (1.0-4.8); Lymphocytes % (A) 28 %; MCH 28.9 pg (25.0-35.0); MCHC 32.6 g/dL (31.0-37.0); Mean Platelet Volume 7.7; Monocytes # (A) 0.5 k/uL (0-1.0); Monocytes % (A) 6 %; Neutrophils # (A) 4.7 k/uL (1.3-7.7); Neutrophils % (A) 61 %; Platelet Count 296 k/uL (150-450); Poikilocytosis Moderate; RBC 3.47 m/uL (4.30-5.90); RDW 13.7 % (11.5-15.5); WBC 7.8 k/uL (3.8-10.6)
[2022-06-20 20:51] LABS: Albumin 4.2 g/dL (3.5-5.0); Calcium 8.8 mg/dL (8.4-10.2); Potassium 4.4 mmol/L (3.5-5.1); Total Bilirubin 0.4 mg/dL (0.2-1.3); Total Protein 6.6 g/dL (6.3-8.2)
[2022-06-20 20:56] LABS: Partial Thromboplastin Time 22.2 sec (22.0-30.0)
[2022-06-20 21:06] LABS: MCV 88.7 fL (80.0-100.0)
--- NOTE | 2022-06-20 23:09 | CT ---
EXAMINATION TYPE: CT angio chest DATE OF EXAM: 06/20/2022 COMPARISON: None HISTORY: positive D-dimer CT DLP: 934.1 mGycm Automated exposure control for dose reduction was used. CONTRAST: Performed with IV Contrast, patient injected with 80ML mL of Isovue 370. There are Three-D postprocessed images. There are bilateral mild pleural effusions. There is some linear infiltrate and atelectasis at the tim ng bases. Heart size is normal. No pericardial effusion. There are no hilar masses. No mediastinal ad enopathy. Thoracic aorta is intact. No aneurysm. There is normal contrast opacification of the pulmonary arteries. No filling defect. There are sternal wires. The thoracic spine is intact. No compression fracture. The upper abdominal s oft tissues are intact. There are large bowel diverticula. IMPRESSION: No evidence of pulmonary embolism. Pleural effusions and basilar pulmonary infiltrates and atelectasi s.
[2022-06-20] MEDS ORDERED: ASPIRIN 81 MG PO STA (23:15)
[2022-06-20] MEDS ORDERED: HEPARIN SODIUM 1,000 UN/ML (10ML VL) IV ONE (23:31)
[2022-06-20] MEDS ORDERED: NITROGLYCERIN SL TABS 0.4 MG TAB SUBLINGUAL PRN (23:43)
[2022-06-20] MEDS: HEPARIN SOD,PORK IN 0.45% NACL 25,000 UNIT in 0.45% NACL 1 250ML.BAG IV SCH (23:46)
[2022-06-21] MEDS: PANTOPRAZOLE 40 MG/10 ML VIAL IVP SCH ×2 (00:12→08:27)
[2022-06-21] MEDS: HEPARIN SODIUM 1,000 UN/ML (10ML VL) IV PRN ×2 (06:59→23:28)
[2022-06-21] MEDS: ASPIRIN 81 MG PO SCH (08:27)
[2022-06-21] MEDS: METOPROLOL SUCCINATE (ER) 50 MG TAB.ER.24H PO SCH (08:27)
[2022-06-21] MEDS: RANOLAZINE 500 MG TAB.ER.12H PO SCH ×2 (08:27→21:11)
[2022-06-21] MEDS ORDERED: ASPIRIN 325 MG TAB PO SCH (09:00)
--- NOTE | 2022-06-21 10:14 | P.CRDCN ---
History of Present Illness History of present illness: HISTORY OF PRESENTING ILLNESS This is a pleasant 72-year-old male past medical history significant for paroxysmal atrial fibrillation previously on Xarelto (held recently for possible GI bleed), coronary artery disease s/p CABG (VALLE to LAD, SVG to OM, SVG to PDA branch of RCA) in 2005, PCI ostium and mid circumflex in 2014, hypertension, type 2 diabetes, dyslipidemia, former nicotine dependence, peripheral vascular disease with severe bilateral SFA disease, atherectomy and prior stenting with Dr. Porras and Dr. Meeks, most recently underwent angiogran, SFA arthrectomy and left SFA PTBA on 03/2022. He follows in the office with Dr. Hendricks We have been asked to see in consultation for elevated troponin. Patient presents to the emergency department with complaints of worsening shortness of breath, generalized the past 5 days. He states that his shortness of breath have progressively gotten worse. He has been having intermittent chest discomfort, nonradiating. He does endorse exertional shortness of breath. He denies any symptoms of orthopnea or PND, lightheadedness, dizziness, palpitations, cough, fever, chills. He states he is compliant with his medications. No changes in his medications recently. DIAGNOSTICS * EKG reveals atrial fibrillation, heart rate 69, ST depression in V3-V6 and I, aVL. Prior EKG 06/06/2022 with similar EKG changes. * Last Cardiac Catheterization 10/2016 revealed total occlusion of the [place] circumflex that was stented in March 2015, appears chronic occlusion. Vein graft to the PDA is patent, PDA itself is diffusely diseased. Vein graft obtuse marginal/PLV branch of circumflex and the VALLE to LAD are widely patent. * Echocardiogram 05/2021 revealed EF 50%, small hypokinetic area of the inferior wall of the base, moderate mitral regurgitation, mild tricuspid regurgitation * Telemetry tracings indicate atrial fibrillation with controlled ventricular rate * CTA of the chest no evidence of pulmonary embolus, pleural effusions vs ba silar pulmonary infiltrates reported * Laboratory reviewed, hemoglobin 10, platelets 296, sodium 138, potassium 4.4, BUN 21, serum crit 1.4, d-dimer 1.8, troponin 0.031, 0.029, 0.031, proBNP 3470 * Current home medications include Jevity is 12.5 mg daily, aspirin 80 mg daily, Ranexa 500 mg twice a day, pravastatin 80 mg nightly, metoprolol succinate 150 mg daily REVIEW OF SYSTEMS At the time of my exam: CONSTITUTIONAL: Denies fever or chills. + Generalized weakness and fatigue CARDIOVASCULAR: Denies chest pain, +shortness of breath, Denies orthopnea, PND or palpitations. RESPIRATORY: Denies cough. GASTROINTESTINAL: Denies abdominal pain, diarrhea, constipation, nausea or vomiting. MUSCULOSKELETAL: Denies myalgias. NEUROLOGIC: Denies numbness, tingling, headache or weakness. ENDOCRINE: Denies fatigue, weight change, polydipsia or polyurina. GENITOURINARY: Denies burning, hematuria or urgency with micturation. HEMATOLOGIC: Denies history of anemia or bleeding. PHYSICAL EXAMINATION Blood pressure 124/41, heart 71, afebrile, oxygen saturations 98% on room air CONSTITUTIONAL: No apparent distress. HEENT: Head is normocephalic. Pupils are equal, round. Sclerae anicteric. Mucous membranes of the mouth are moist. No JVD. No carotid bruit. CHEST EXAMINATION: Lungs are diminished bilaterally to auscultation. No chest wall tenderness is noted on palpation or with deep breathing. HEART EXAMINATION: Irregular rate and rhythm. S1, S2 heard. No murmurs, gallops or rub. ABDOMEN: Soft, nontender. Positive bowel sounds. EXTREMITIES: 2+ peripheral pulses, 1-2+ bilateral lower extremity edema and no calf tenderness. SKIN: warm, dry NEUROLOGIC EXAMINATION: Patient is awake, alert and oriented x3. ASSESSMENT Elevated troponin, symptoms of shortness of breath, possible NSTEMI Generalized fatigue Paroxysmal atrial fibrillation previously on Xarelto (held recently for possible GI bleed) Coronary artery disease s/p CABG (VALLE to LAD, SVG to OM, SVG to PDA branch of RCA) in 2005, PCI ostium and mid circumflex in 2015 Hypertension Type 2 diabetes Dyslipidemia Former nicotine dependence Peripheral vascular disease with severe bilateral SFA disease, atherectomy and prior stenting with Dr. Porras and Dr. Meeks, most recently underwent angiogran, SFA arthrectomy and left SFA PTBA on 03/2022 PLAN Continue IV heparin drip Aspirin, statin, beta heraclio Obtain 2D echocardiogram and doppler study to assess cardiac structure and function. Patient not on ACEI/ARB secondary to renal function NPO after midnight for possible intervention based on above findings. Further recommendations based on clinical course Thank you kindly for this consultation. Nurse practitioner note has been reviewed by physician. Signing provider agrees with the documented findings, assessment, and plan of care. Past Medical History Past Medical History: Atrial Fibrillation, Coronary Artery Disease (CAD), Heart Failure, Diabetes Mellitus, GERD/Reflux, GI Bleed, Hyperlipidemia, Hypertension, Myocardial Infarction ([place]), Osteoarthritis (OA), Renal Disease, Vascular Disorder Additional Past Medical History / Comment(s): Chronic Kidney Disease, pt states doctor watches his renal functions, Anemia-pt states told GI bleed but site n ever found, [place] in 2017 d/t anemia, PAD, athritis in low back and bilateral hips, hx gout, diarrhea, Last Myocardial Infarction Date:: 09/2016 History of Any Multi-Drug Resistant Organisms: None Reported Past Surgical History: Cholecystectomy, Coronary Bypass/CABG, Heart Catheterization, Heart Catheterization With Stent, Orthopedic Surgery, Tonsillectomy Additional Past Surgical History / Comment(s): "cleaned out artery in right leg", Multiple peripheral revascularization procedures/stents/arthrec tomies/ballooning, multiple aortagrams with runoffs, JOIE, , 2005 CABG 3 vessel, EGD, colonoscopies, right foot gout, cyst on back drained. 2 cardiac stents Past Anesthesia/Blood Transfusion Reactions: No Reported Reaction Date of Last Stent Placement:: 2013 Past Psychological History: No Psychological Hx Reported Smoking Status: Former smoker Past Alcohol Use History: None Reported Past Drug Use History: None Reported - Past Family History Father Family Medical History: Myocardial Infarction ([place]) Additional Family Medical History / Comment(s): He had a [place] in his 30s and had CABG. Mother Family Medical History: Pulmonary Embolus Medications and Allergies Home Medications Medication Instructions Recorded Confirmed Type [place]-3 Fatty Acids/Fish Oil [Fish 1 cap PO BID 03/16/15 06/20/22 History Oil 1,000 mg Softgel] allopurinoL [Zyloprim] 100 mg PO DAILY 03/16/15 06/20/22 History Nitroglycerin Sl Tabs [Nitrostat] 0.4 mg SL Q5M PRN 05/12/16 06/20/22 History Montelukast [Singulair] 10 mg PO DAILY 08/31/17 06/20/22 History Ranolazine [Ranexa] 500 mg PO BID 08/31/17 06/20/22 History Pravastatin Sodium 80 mg PO HS 01/15/19 06/20/22 History Empagliflozin [Jardiance] 12.5 mg PO DIRECTED 08/04/21 06/20/22 History Cholecalciferol (Vitamin D3) 125 mcg PO DAILY 02/10/22 06/20/22 History [Vitamin D3 (125 MCG = 5,000 IU)] Insulin NPH [humuLIN N] 52 unit SQ DAILY 02/10/22 06/20/22 History Magnesium Oxide [Magnesium] 1,000 mg PO DAILY@1200 02/10/22 06/20/22 History Metoprolol Succinate (ER) [Toprol 150 mg PO DAILY 02/10/22 06/20/22 History Xl] Pantoprazole [Protonix] 40 mg PO DAILY 02/10/22 06/20/22 History Aspirin EC [Ecotrin Low Dose] 81 mg PO DAILY 06/20/22 06/20/22 History Allergies Allergy/AdvReac Type Severity Reaction Status Date / Time Sulfa (Sulfonamide Allergy Rash/Hives Verified 06/20/22 22:43 Antibiotics) sulfamethoxazole Allergy Rash/Hives Verified 06/20/22 22:43 [From Bactrim] trimethoprim [From Bactrim] Allergy Rash/Hives Verified 06/20/22 22:43 Physical Exam Vitals: Vital Signs Temp Pulse Resp BP Pulse Ox 06/21/22 06:42 71 18 124/41 06/21/22 02:52 56 L 18 06/21/22 00:07 73 18 134/62 98 06/20/22 18:18 98.2 F 76 16 139/75 99 Intake and Output 06/20/22 06/21/22 06/21/22 22:59 06:59 14:59 Intake Total 72.833 Balance 72.833 Intake: Intake, IV Titration 72.833 Amount Heparin Sod,Pork in 0.45% 72.833 NaCl 25,000 unit In 0.45 % NaCl 1 250ml.bag @ 9. 186 UNITS/KG/HR 10 mls/hr IV .Q24H [facility] Rx#: [id number] Other: Weight 108.862 kg Results 06/20/22 20:28 06/20/22 20:28 Cardiac Enzymes 06/20/22 06/20/22 06/21/22 Range/Units 20:28 20:28 00:49 AST 34 (17-59) U/L Troponin I 0.318 H* 0.294 H* (0.000-0.034) ng/mL 06/21/22 Range/Units 03:41 AST (17-59) U/L Troponin I 0.318 H* (0.000-0.034) ng/mL Coagulation 06/20/22 06/21/22 Range/Units 20:28 05:35 PT 11.0 (9.0-12.0) sec APTT 22.2 31.9 H (22.0-30.0) sec CBC 06/20/22 Range/Units 20:28 WBC 7.8 (3.8-10.6) k/uL RBC 3.47 L (4.30-5.90) m/uL Hgb 10.0 L (13.0-17.5) gm/dL Hct 30.8 L (39.0-53.0) % Plt Count 296 (150-450) k/uL Comprehensive Metabolic Panel 06/20/22 Range/Units 20:28 Sodium 138 (137-145) mmol/L Potassium 4.4 (3.5-5.1) mmol/L Chloride 100 (98-107) mmol/L Carbon Dioxide 26 (22-30) mmol/L BUN 21 H (9-20) mg/dL Creatinine 1.48 H (0.66-1.25) mg/dL Glucose 111 H (74-99) mg/dL Calcium 8.8 (8.4-10.2) mg/dL AST 34 (17-59) U/L ALT 82 H (4-49) U/L Alkaline Phosphatase 132 H (38-126) U/L Total Protein 6.6 (6.3-8.2) g/dL Albumin 4.2 (3.5-5.0) g/dL Current Medications Generic Name Dose Route Start Last Admin Trade Name Freq PRN Reason Stop Dose Admin Aspirin 325 mg 06/21/22 09:00 Aspirin 325 Mg Tab PO DAILY CHERELLE Heparin Sodium (Porcine) 0 unit 06/20/22 23:31 06/21/22 06:59 Heparin Sodium 1,000 Un/Ml (10ml Vl) IV 4,000 unit PER PROTOCOL PRN Administration Low PTT Protocol Heparin Sodium/Sodium Chloride 250 mls @ 10 mls/hr 06/20/22 23:45 06/21/22 07:03 25,000 unit/ Sodium Chloride IV 11.19 units/kg/hr .Q24H CHERELLE 12.186 mls/hr Titration Protocol 9.186 UNITS/KG/HR Nitroglycerin 0.4 mg 06/20/22 23:43 Nitroglycerin Sl Tabs 0.4 Mg Tab SUBLINGUAL Q5M PRN Chest Pain Pantoprazole Sodium 40 mg 06/21/22 00:15 06/21/22 00:12 Pantoprazole 40 Mg/10 Ml Vial IVP 40 mg DAILY CHERELLE Administration Intake and Output 06/20/22 06/21/22 06/21/22 22:59 06:59 14:59 Intake Total 72.833 Balance 72.833 Intake: Intake, IV Titration 72.833 Amount Heparin Sod,Pork in 0.45% 72.833 NaCl 25,000 unit In 0.45 % NaCl 1 250ml.bag @ 9. 186 UNITS/KG/HR 10 mls/hr IV .Q24H [facility] Rx#: [id number] Other: Weight 108.862 kg 06/20/22 20:28 06/20/22 20:28
[2022-06-21 10:36] LABS: Chol/HDL Ratio 3.28 Ratio; LDL Cholesterol,Calculated 62.1 mg/dL (0.0-131.0)
[2022-06-21 10:59] LABS: Basophils % (A) 1 %; Eosinophils # (A) 0.1 k/uL (0-0.7); Eosinophils % (A) 2 %; HCT 31.3 % (39.0-53.0); HGB 9.6 gm/dL (13.0-17.5); Hypochromasia Marked; Lymphocytes # (A) 2.3 k/uL (1.0-4.8); Lymphocytes % (A) 27 %; MCH 28.1 pg (25.0-35.0); MCHC 30.6 g/dL (31.0-37.0); MCV 91.7 fL (80.0-100.0); Mean Platelet Volume 10.1; Monocytes # (A) 0.5 k/uL (0-1.0); Monocytes % (A) 6 %; Neutrophils # (A) 5.1 k/uL (1.3-7.7); Neutrophils % (A) 62 %; Platelet Count 273 k/uL (150-450); Poikilocytosis Moderate; RBC 3.41 m/uL (4.30-5.90); RDW 13.8 % (11.5-15.5); WBC 8.2 k/uL (3.8-10.6)
[2022-06-21] MEDS ORDERED: NITROGLYCERIN SL TABS 0.4 MG TAB SUBLINGUAL PRN (12:14)
--- NOTE | 2022-06-21 12:20 | P.HPIM ---
History of Present Illness H&P Date: 06/21/22 Kevin Mcknight, is a 72 year-old male who presented to [facility] emergency room with a chief complaint of chest pain, on and off for the last 4 days, patient has been also complaining of worsening shortness of breath, he has a known history of hypertension, hyperlipidemia, diabetes mellitus, paroxysmal atrial fibrillation , coronary artery disease with previous history of coronary artery bypass graft surgery in 2005, and history of angioplasty in 2014 patient also has a known history of peripheral vascular disease with recent intervention by Dr. Porras and Dr. Meeks in March 2022. Patient also had recent history of rectal bleeding he presented to [facility] about 2 weeks ago with rectal bleeding and was transferred to [facility], he states that he did not have any EGD or colonoscopy and rectal bleeding stopped spontaneously. He was evaluated in the emergency room vital examination on presentation revealed a temperature of 98.2 pulse 76 respiration 16 blood pressure 139/75 pulse ox 99% on room air Laboratory data revealed a white blood count of 7.8 hemoglobin 10.0 platelet count 296 d-dimer 1.8 BUN 21 creatinine 1.48 troponin level 0.318 BNP 3470 Testing in the emergency room revealed CT angiogram of the chest revealed no evidence of pulmonary embolism, patient had evidence of bilateral pleural effusion and basilar pulmonary infiltrates and atelectasis. Patient was admitted to medical floor for further evaluation and treatment Past Medical History Past Medical History: Atrial Fibrillation, Coronary Artery Disease (CAD), Heart Failure, Diabetes Mellitus, GERD/Reflux, GI Bleed, Hyperlipidemia, Hypertension, Myocardial Infarction (NE), Osteoarthritis (OA), Renal Disease, Vascular Disorde r Additional Past Medical History / Comment(s): Chronic Kidney Disease, pt states doctor watches his renal functions, Anemia-pt states told GI bleed but site never found, NE in 2017 d/t anemia, PAD, athritis in low back and bilateral hips, hx gout, diarrhea, Last Myocardial Infarction Date:: 09/2016 History of Any Multi-Drug Resistant Organisms: None Reported Past Surgical History: Cholecystectomy, Coronary Bypass/CABG, Heart Catheterization, Heart Catheterization With Stent, Orthopedic Surgery, Tonsillectomy Additional Past Surgical History / Comment(s): "cleaned out artery in right leg", Multiple peripheral revascularization procedures/stents/arthrectomies/ballooning, multiple aortagrams with runoffs, JOIE, , 2006 CABG 3 vessel, EGD, colonoscopies, right foot gout, cyst on back drained. 2 cardiac stents Past Anesthesia/Blood Transfusion Reactions: No Reported Reaction Date of Last Stent Placement:: 2013 Past Psychological History: No Psychological Hx Reported Smoking Status: Former smoker Past Alcohol Use History: None Reported Past Drug Use History: None Reported - Past Family History Father Family Medical History: Myocardial Infarction (NE) Additional Family Medical History / Comment(s): He had a NE in his 30s and had CABG. Mother Family Medical History: Pulmonary Embolus Medications and Allergies Home Medications Medication Instructions Recorded Confirmed Type [place]-3 Fatty Acids/Fish Oil [Fish 1 cap PO BID 03/16/15 06/20/22 History Oil 1,000 mg Softgel] allopurinoL [Zyloprim] 100 mg PO DAILY 03/16/15 06/20/22 History Nitroglycerin Sl Tabs [Nitrostat] 0.4 mg SL Q5M PRN 05/12/16 06/20/22 History Montelukast [Singulair] 10 mg PO DAILY 08/31/17 06/20/22 History Ranolazine [Ranexa] 500 mg PO BID 08/31/17 06/20/22 History Pravastatin Sodium 80 mg PO HS 01/15/19 06/20/22 History Empagliflozin [Jardiance] 12.5 mg PO DAILY 08/04/21 06/21/22 History Cholecalciferol (Vitamin D3) 125 mcg PO DAILY 02/10/22 06/20/22 History [Vitamin D3 (125 MCG = 5,000 IU)] Insulin NPH [humuLIN N] 52 unit SQ DAILY 02/10/22 06/20/22 History Magnesium Oxide [Magnesium] 1,000 mg PO DAILY@1200 02/10/22 06/20/22 History Metoprolol Succinate (ER) [Toprol 150 mg PO DAILY 02/10/22 06/20/22 History Xl] Pantoprazole [Protonix] 40 mg PO DAILY 02/10/22 06/20/22 History Aspirin EC [Ecotrin Low Dose] 81 mg PO DAILY 06/20/22 06/20/22 History Allergies Allergy/AdvReac Type Severity Reaction Status Date / Time Sulfa (Sulfonamide Allergy Rash/Hives Verified 06/20/22 22:43 Antibiotics) sulfamethoxazole Allergy Rash/Hives Verified 06/20/22 22:43 [From Bactrim] trimethoprim [From Bactrim] Allergy Rash/Hives Verified 06/20/22 22:43 Physical Exam Vitals: Vital Signs Temp Pulse Resp BP Pulse Ox 06/21/22 10:13 86 18 128/47 98 06/21/22 06:42 71 18 124/41 06/21/22 02:52 56 L 18 06/21/22 00:07 73 18 134/62 98 06/20/22 18:18 98.2 F 76 16 139/75 99 Intake and Output 06/20/22 06/21/22 06/21/22 22:59 06:59 14:59 Intake Total 72.833 Balance 72.833 Intake: Intake, IV Titration 72.833 Amount Heparin Sod,Pork in 0.45% 72.833 NaCl 25,000 unit In 0.45 % NaCl 1 250ml.bag @ 9. 186 UNITS/KG/HR 10 mls/hr IV .Q24H [facility] Rx#: [id number] Other: Weight 108.862 kg In general patient is alert and oriented 3 in no distress HEENT head normocephalic and atraumatic Neck is supple no JVD no goiter no lymphadenopathy no carotid bruit Chest examination is clear to auscultation no crackles no wheezing Cardiac exam reveals regular heart sounds S1 and S2 no gallops no murmurs Abdomen is soft nontender no organomegaly with normal bowel sounds Extremity exam reveals no edema no cyanosis or clubbing Neurological examination reveals no gross focal deficits Results CBC & Chem 7: 06/21/22 05:35 06/20/22 20:28 Labs: Abnormal Lab Results - Last 24 Hours (Table) 06/20/22 06/20/22 06/20/22 Range/Units 20:28 20:28 20:28 RBC 3.47 L (4.30-5.90) m/uL Hgb 10.0 L (13.0-17.5) gm/dL Hct 30.8 L (39.0-53.0) % APTT (22.0-30.0) sec D-Dimer 1.80 H (<0.60) mg/L FEU BUN 21 H (9-20) mg/dL Creatinine 1.48 H (0.66-1.25) mg/dL Glucose 111 H (74-99) mg/dL ALT 82 H (4-49) U/L Alkaline Phosphatase 132 H (38-126) U/L Troponin I (0.000-0.034) ng/mL HDL Cholesterol (40.00-60.00) mg/dL 06/20/22 06/21/22 06/21/22 Range/Units 20:28 00:49 03:41 RBC (4.30-5.90) m/uL Hgb (13.0-17.5) gm/dL Hct (39.0-53.0) % APTT (22.0-30.0) sec D-Dimer (<0.60) mg/L FEU BUN (9-20) mg/dL Creatinine (0.66-1.25) mg/dL Glucose (74-99) mg/dL ALT (4-49) U/L Alkaline Phosphatase (38-126) U/L Troponin I 0.318 H* 0.294 H* 0.318 H* (0.000-0.034) ng/mL HDL Cholesterol (40.00-60.00) mg/dL 06/21/22 06/21/22 Range/Units 05:35 05:35 RBC (4.30-5.90) m/uL Hgb (13.0-17.5) gm/dL Hct (39.0-53.0) % APTT 31.9 H (22.0-30.0) sec D-Dimer (<0.60) mg/L FEU BUN (9-20) mg/dL Creatinine (0.66-1.25) mg/dL Glucose (74-99) mg/dL ALT (4-49) U/L Alkaline Phosphatase (38-126) U/L Troponin I (0.000-0.034) ng/mL HDL Cholesterol 37.50 L (40.00-60.00) mg/dL Assessment and Plan Plan: Non-ST elevation myocardial infarction Paroxysmal atrial fibrillation, patient was maintained on supplemental however this was held 2 weeks ago due to rectal bleeding Known history of coronary artery disease with history of coronary artery bypass graft surgery and history of angioplasty in 2014 Underlying history of insulin-dependent diabetes mellitus Underlying history of hypertension Underlying history of hyperlipidemia Underlying history of gout Elevated d-dimer, pulmonary embolism was ruled out Underlying history of chronic kidney disease stage III Underlying history of anemia Recent history of rectal bleed At this time patient was seen and examined Home medications reviewed and reordered Patient was started on IV heparin in the emergency room Will monitor CBC closely due to recent history of GI bleed Plan per cardiology is for echocardiogram today and possible cardiac catheterization in a.m. Will follow closely
[2022-06-21] MEDS: allopurinoL 100 MG TAB PO SCH (13:00)
[2022-06-21] MEDS: CHOLECALCIFEROL 125 MCG (5000 IU) TABLET PO SCH (13:00)
[2022-06-21 16:30] LABS: Glucose,Whole Blood 228 mg/dL (70-110)
[2022-06-21] MEDS: INSULIN ASPART (NovoLOG) 100 UNIT/ML VIAL SQ SCH ×2 (16:53→21:12)
[2022-06-21] MEDS: HEPARIN SOD,PORK IN 0.45% NACL 25,000 UNIT in 0.45% NACL 1 250ML.BAG IV SCH (18:33)
[2022-06-21 19:58] LABS: Glucose,Whole Blood 195 mg/dL (70-110)
[2022-06-21] MEDS ORDERED: NON FORMULARY DRUG (Omega-3 Fatty Acids/Fish Oil [Fish Oil 1,000 Mg Softgel] 1 EACH Capsul PO SCH (21:00)
[2022-06-21] MEDS: PRAVASTATIN SODIUM 80 MG TAB PO SCH (21:12)
[2022-06-22 06:08] LABS: Glucose,Whole Blood 177 mg/dL (70-110)
[2022-06-22] MEDS: INSULIN ASPART (NovoLOG) 100 UNIT/ML VIAL SQ SCH ×4 (06:24→20:40)
[2022-06-22] MEDS: PANTOPRAZOLE 40 MG TABLET PO SCH (06:24)
[2022-06-22 07:52] LABS: Basophils % (A) 0 %; Eosinophils # (A) 0.1 k/uL (0-0.7); Eosinophils % (A) 2 %; HCT 28.7 % (39.0-53.0); HGB 8.9 gm/dL (13.0-17.5); Hypochromasia Marked; Lymphocytes # (A) 1.4 k/uL (1.0-4.8); Lymphocytes % (A) 26 %; MCH 27.7 pg (25.0-35.0); MCV 89.4 fL (80.0-100.0); Mean Platelet Volume 8.3; Monocytes # (A) 0.3 k/uL (0-1.0); Monocytes % (A) 6 %; Neutrophils # (A) 3.4 k/uL (1.3-7.7); Neutrophils % (A) 63 %; Platelet Count 254 k/uL (150-450); Poikilocytosis Moderate; RBC 3.21 m/uL (4.30-5.90); WBC 5.4 k/uL (3.8-10.6)
[2022-06-22 08:35] LABS: Albumin 3.6 g/dL (3.5-5.0); Calcium 8.4 mg/dL (8.4-10.2); Potassium 4.3 mmol/L (3.5-5.1); Total Bilirubin 0.5 mg/dL (0.2-1.3); Total Protein 5.8 g/dL (6.3-8.2)
--- NOTE | 2022-06-22 09:35 | P.PN ---
Subjective Progress Note Date: 06/22/22 Kevin Mcknight, is a 72 year-old male who presented to [facility] emergency room with a chief complaint of chest pain, on and off for the last 4 days, patient has been also complaining of worsening shortness of breath, he has a known history of hypertension, hyperlipidemia, diabetes mellitus, paroxysmal atrial fibrillation , coronary artery disease with previous history of coronary artery bypass graft surgery in 2005, and history of angioplasty in 2014 patient also has a known history of peripheral vascular disease with recent intervention by Dr. Porras and Dr. Meeks in March 2022. Patient also had recent history of rectal bleeding he presented to [facility] about 2 weeks ago with rectal bleeding and was transferred to [facility], he states that he did not have any EGD or colonoscopy and rectal bleeding stopped spontaneously. He was evaluated in the emergency room vital examination on presentation revealed a temperature of 98.2 pulse 76 respiration 16 blood pressure 139/75 pulse ox 99% on room air Laboratory data revealed a white blood count of 7.8 hemoglobin 10.0 platelet count 296 d-dimer 1.8 BUN 21 creatinine 1.48 troponin level 0.318 BNP 3470 Testing in the emergency room revealed CT angiogram of the chest revealed no evidence of pulmonary embolism, patient had evidence of bilateral pleural effusion and basilar pulmonary infiltrates and atelectasis. Patient was admitted to medical floor for further evaluation and treatment On 06/22/2022 patient is alert and oriented 3. 2-D echo has been ordered per cardiology. Patient remains on heparin drip. Patient denies chest pain. Patient does report shortness breath with activity. Patient denies nausea vomiting or diarrhea. Patient denies any urinary burning or frequency Objective - Vital Signs Vital signs: Vital Signs Temp 97.8 F 06/22/22 08:00 Pulse 70 06/22/22 08:00 Resp 16 06/22/22 08:00 BP 122/70 06/22/22 08:00 Pulse Ox 98 06/22/22 08:00 FiO2 Intake & Output 06/21/22 06/22/22 06/22/22 18:59 06:59 18:59 Intake Total 339.889 610.598 157.45 Balance 339.889 610.598 157.45 Weight 108.862 kg Intake: Intake, IV Titration 219.889 70.598 157.45 Amount Heparin Sod,Pork in 0.45% 219.889 70.598 157.45 NaCl 25,000 unit In 0.45 % NaCl 1 250ml.bag @ 9. 186 UNITS/KG/HR 10 mls/hr IV .Q24H [facility] Rx#: [id number] Oral 120 540 Other: Voiding Method Toilet Toilet # Voids 2 - Exam In general patient is alert and oriented 3 in no distress HEENT head normocephalic and atraumatic Neck is supple no JVD no goiter no lymphadenopathy no carotid bruit Chest examination is clear to auscultation no crackles no wheezing Cardiac exam reveals regular heart sounds S1 and S2 no gallops no murmurs Abdomen is soft nontender no organomegaly with normal bowel sounds Extremity exam reveals no edema no cyanosis or clubbing Neurological examination reveals no gross focal deficits - Labs CBC & Chem 7: 06/22/22 07:27 06/22/22 07:27 Labs: Abnormal Lab Results - Last 24 Hours (Table) 06/21/22 06/21/22 06/21/22 Range/Units 05:35 05:35 13:08 RBC 3.41 L (4.30-5.90) m/uL Hgb 9.6 L (13.0-17.5) gm/dL Hct 31.3 L (39.0-53.0) % MCHC 30.6 L (31.0-37.0) g/dL APTT 37.3 H (22.0-30.0) sec Sodium (137-145) mmol/L BUN (9-20) mg/dL Creatinine (0.66-1.25) mg/dL Glucose (74-99) mg/dL POC Glucose (mg/dL) (70-110) mg/dL Total Protein (6.3-8.2) g/dL HDL Cholesterol 37.50 L (40.00-60.00) mg/dL 06/21/22 06/21/22 06/21/22 Range/Units 16:28 19:50 20:48 RBC (4.30-5.90) m/uL Hgb (13.0-17.5) gm/dL Hct (39.0-53.0) % MCHC (31.0-37.0) g/dL APTT 34.9 H (22.0-30.0) sec Sodium (137-145) mmol/L BUN (9-20) mg/dL Creatinine (0.66-1.25) mg/dL Glucose (74-99) mg/dL POC Glucose (mg/dL) 228 H 195 H (70-110) mg/dL Total Protein (6.3-8.2) g/dL HDL Cholesterol (40.00-60.00) mg/dL 06/22/22 06/22/22 06/22/22 Range/Units 06:02 07:27 07:27 RBC 3.21 L (4.30-5.90) m/uL Hgb 8.9 L (13.0-17.5) gm/dL Hct 28.7 L (39.0-53.0) % MCHC (31.0-37.0) g/dL APTT (22.0-30.0) sec Sodium 136 L (137-145) mmol/L BUN 22 H (9-20) mg/dL Creatinine 1.51 H (0.66-1.25) mg/dL Glucose 145 H (74-99) mg/dL POC Glucose (mg/dL) 177 H (70-110) mg/dL Total Protein 5.8 L (6.3-8.2) g/dL HDL Cholesterol (40.00-60.00) mg/dL 06/22/22 Range/Units 07:27 RBC (4.30-5.90) m/uL Hgb (13.0-17.5) gm/dL Hct (39.0-53.0) % MCHC (31.0-37.0) g/dL APTT 94.5 H (22.0-30.0) sec Sodium (137-145) mmol/L BUN (9-20) mg/dL Creatinine (0.66-1.25) mg/dL Glucose (74-99) mg/dL POC Glucose (mg/dL) (70-110) mg/dL Total Protein (6.3-8.2) g/dL HDL Cholesterol (40.00-60.00) mg/dL Assessment and Plan Plan: Non-ST elevation myocardial infarction Paroxysmal atrial fibrillation, patient was maintained on supplemental however this was held 2 weeks ago due to rectal bleeding Known history of coronary artery disease with history of coronary artery bypass graft surgery and history of angioplasty in 2015 Underlying history of insulin-dependent diabetes mellitus Underlying history of hypertension Underlying history of hyperlipidemia Underlying history of gout Elevated d-dimer, pulmonary embolism was ruled out Underlying history of chronic kidney disease stage III Underlying history of anemia Recent history of rectal bleed At this time patient was seen and examined Home medications reviewed and reordered Patient was started on IV heparin in the emergency room Will monitor CBC closely due to recent history of GI bleed Plan per cardiology is for echocardiogram today and possible cardiac catheterization in a.m. Will follow closely
[2022-06-22] MEDS: MAGNESIUM OXIDE 400 MG TAB PO SCH (09:54)
[2022-06-22] MEDS: CHOLECALCIFEROL 125 MCG (5000 IU) TABLET PO SCH (09:54)
[2022-06-22] MEDS: METOPROLOL SUCCINATE (ER) 50 MG TAB.ER.24H PO SCH (09:55)
[2022-06-22] MEDS: allopurinoL 100 MG TAB PO SCH (09:55)
[2022-06-22] MEDS: RANOLAZINE 500 MG TAB.ER.12H PO SCH ×2 (09:55→20:40)
[2022-06-22] MEDS: ASPIRIN 81 MG PO SCH (09:55)
[2022-06-22] MEDS: MONTELUKAST 10 MG TAB PO SCH (09:55)
[2022-06-22] MEDS: DAPAGLIFLOZIN PROPANEDIOL 5 MG TABLET PO SCH (09:56)
--- NOTE | 2022-06-22 09:57 | P.PN ---
Subjective This is a pleasant 72-year-old male past medical history significant for paroxysmal atrial fibrillation previously on Xarelto (held recently for possible GI bleed), coronary artery disease s/p CABG (VALLE to LAD, SVG to OM, SVG to PDA branch of RCA) in 2005, PCI ostium and mid circumflex in 2014, hypertension, type 2 diabetes, dyslipidemia, former nicotine dependence, peripheral vascular disease with severe bilateral SFA disease, atherectomy and prior stenting with Dr. Porras and Dr. Meeks, most recently underwent angiogran, SFA arthrectomy and left SFA PTBA on 03/2022. He follows in the office with Dr. Hendricks We have been asked to see in consultation for elevated troponin. Patient presents to the emergency department with complaints of worsening shortness of breath, generalized the past 5 days. He states that his shortness of breath have progressively gotten worse. He has been having intermittent chest discomfort, nonradiating. He does endorse exertional shortness of breath. He denies any symptoms of orthopnea or PND, lightheadedness, dizziness, palpitations, cough, fever, chills. He states he is compliant with his medications. No changes in his medications recently. DIAGNOSTICS * Last Cardiac Catheterization 10/2016 revealed total occlusion of the [place] circumflex that was stented in March 2015, appears chronic occlusion. Vein graft to the PDA is patent, PDA itself is diffusely diseased. Vein graft obtuse marginal/PLV branch of circumflex and the VALLE to LAD are widely patent. * Echocardiogram 05/2021 revealed EF 50%, small hypokinetic area of the inferior wall of the base, moderate mitral regurgitation, mild tricuspid regurgitation 06/22/2022 Patient seen and examined at bedside, no acute distress. His shortness of breath has improved but continues to feel "winded" and some shortness of breath. No chest pain. 2D echo pending. Telemetry reviewed patient in sinus rhythm with heart rates in the 70s. Troponin 0.031, 0.029, 0.031 PHYSICAL EXAMINATION Vitals revealed CONSTITUTIONAL: No apparent distress. HEENT: Head is normocephalic. No JVD. CHEST EXAMINATION: Lungs are clear bilaterally to auscultation. No chest wall tenderness is noted on palpation or with deep breathing. HEART EXAMINATION: Regular rate and rhythm. S1, S2 heard. No murmurs, gallops or rub. ABDOMEN: Soft, nontender. Positive bowel sounds. EXTREMITIES: 2+ peripheral pulses, 1+ bilateral lower extremity edema and no calf tenderness. NEUROLOGIC EXAMINATION: Patient is awake, alert and oriented x3. ASSESSMENT Elevated troponin, symptoms of shortness of breath, possible NSTEMI Generalized fatigue Paroxysmal atrial fibrillation previously on Xarelto (held recently for possible GI bleed) Coronary artery disease s/p CABG (VALLE to LAD, SVG to OM, SVG to PDA branch of RCA) in 2005, PCI ostium and mid circumflex in 2014 Hypertension Type 2 diabetes Dyslipidemia Former nicotine dependence Peripheral vascular disease with severe bilateral SFA disease, atherectomy and prior stenting with Dr. Porras and Dr. Meeks, most recently underwent angiogran, SFA arthrectomy and left SFA PTBA on 03/2022 PLAN Continue IV heparin drip for additional 24 hours Aspirin, statin, beta heraclio Obtain 2D echocardiogram and doppler study to assess cardiac structure and function. Patient not on ACEI/ARB secondary to renal function NPO after midnight for possible intervention based on above findings. Further recommendations based on clinical course Nurse practitioner note has been reviewed by physician. Signing provider agrees with the documented findings, assessment, and plan of care. Objective - Vital Signs Vital signs: Vital Signs Temp 97.8 F 06/22/22 08:00 Pulse 70 06/22/22 08:00 Resp 16 06/22/22 08:00 BP 122/70 06/22/22 08:00 Pulse Ox 98 06/22/22 08:00 FiO2 Intake & Output 06/21/22 06/22/22 06/22/22 18:59 06:59 18:59 Intake Total 339.889 610.598 397.45 Balance 339.889 610.598 397.45 Weight 108.862 kg Intake: Intake, IV Titration 219.889 70.598 157.45 Amount Heparin Sod,Pork in 0.45% 219.889 70.598 157.45 NaCl 25,000 unit In 0.45 % NaCl 1 250ml.bag @ 9. 186 UNITS/KG/HR 10 mls/hr IV .Q24H [facility] Rx#: [id number] Oral 120 540 240 Other: Voiding Method Toilet Toilet # Voids 2 - Labs CBC & Chem 7: 06/22/22 07:27 06/22/22 07:27 Labs: Abnormal Lab Results - Last 24 Hours (Table) 06/21/22 06/21/22 06/21/22 Range/Units 05:35 05:35 13:08 RBC 3.41 L (4.30-5.90) m/uL Hgb 9.6 L (13.0-17.5) gm/dL Hct 31.3 L (39.0-53.0) % MCHC 30.6 L (31.0-37.0) g/dL APTT 37.3 H (22.0-30.0) sec Sodium (137-145) mmol/L BUN (9-20) mg/dL Creatinine (0.66-1.25) mg/dL Glucose (74-99) mg/dL POC Glucose (mg/dL) (70-110) mg/dL Total Protein (6.3-8.2) g/dL HDL Cholesterol 37.50 L (40.00-60.00) mg/dL 06/21/22 06/21/22 06/21/22 Range/Units 16:28 19:50 20:48 RBC (4.30-5.90) m/uL Hgb (13.0-17.5) gm/dL Hct (39.0-53.0) % MCHC (31.0-37.0) g/dL APTT 34.9 H (22.0-30.0) sec Sodium (137-145) mmol/L BUN (9-20) mg/dL Creatinine (0.66-1.25) mg/dL Glucose (74-99) mg/dL POC Glucose (mg/dL) 228 H 195 H (70-110) mg/dL Total Protein (6.3-8.2) g/dL HDL Cholesterol (40.00-60.00) mg/dL 06/22/22 06/22/22 06/22/22 Range/Units 06:02 07:27 07:27 RBC 3.21 L (4.30-5.90) m/uL Hgb 8.9 L (13.0-17.5) gm/dL Hct 28.7 L (39.0-53.0) % MCHC (31.0-37.0) g/dL APTT (22.0-30.0) sec Sodium 136 L (137-145) mmol/L BUN 22 H (9-20) mg/dL Creatinine 1.51 H (0.66-1.25) mg/dL Glucose 145 H (74-99) mg/dL POC Glucose (mg/dL) 177 H (70-110) mg/dL Total Protein 5.8 L (6.3-8.2) g/dL HDL Cholesterol (40.00-60.00) mg/dL 06/22/22 Range/Units 07:27 RBC (4.30-5.90) m/uL Hgb (13.0-17.5) gm/dL Hct (39.0-53.0) % MCHC (31.0-37.0) g/dL APTT 94.5 H (22.0-30.0) sec Sodium (137-145) mmol/L BUN (9-20) mg/dL Creatinine (0.66-1.25) mg/dL Glucose (74-99) mg/dL POC Glucose (mg/dL) (70-110) mg/dL Total Protein (6.3-8.2) g/dL HDL Cholesterol (40.00-60.00) mg/dL
[2022-06-22] MEDS: INSULIN NPH 100 UNIT/ML 10 ML VIAL SQ SCH (10:53)
[2022-06-22] MEDS: HEPARIN SOD,PORK IN 0.45% NACL 25,000 UNIT in 0.45% NACL 1 250ML.BAG IV SCH (10:56)
[2022-06-22 11:53] LABS: Glucose,Whole Blood 198 mg/dL (70-110)
[2022-06-22 16:52] LABS: Glucose,Whole Blood 124 mg/dL (70-110)
[2022-06-22 20:01] LABS: Glucose,Whole Blood 152 mg/dL (70-110)
[2022-06-22] MEDS: PRAVASTATIN SODIUM 80 MG TAB PO SCH (20:40)
[2022-06-23 06:01] LABS: Glucose,Whole Blood 109 mg/dL (70-110)
[2022-06-23] MEDS: INSULIN ASPART (NovoLOG) 100 UNIT/ML VIAL SQ SCH ×4 (06:21→20:02)
[2022-06-23] MEDS: PANTOPRAZOLE 40 MG TABLET PO SCH ×2 (06:32→13:12)
[2022-06-23 08:28] LABS: Basophils % (A) 1 %; Eosinophils # (A) 0.1 k/uL (0-0.7); Eosinophils % (A) 2 %; HGB 8.9 gm/dL (13.0-17.5); Hypochromasia Marked; Lymphocytes # (A) 1.4 k/uL (1.0-4.8); Lymphocytes % (A) 29 %; MCH 28.8 pg (25.0-35.0); MCHC 31.9 g/dL (31.0-37.0); MCV 90.2 fL (80.0-100.0); Monocytes # (A) 0.4 k/uL (0-1.0); Monocytes % (A) 9 %; Neutrophils # (A) 2.7 k/uL (1.3-7.7); Neutrophils % (A) 57 %; Platelet Count 255 k/uL (150-450); Poikilocytosis Moderate; RDW 13.8 % (11.5-15.5); WBC 4.7 k/uL (3.8-10.6)
[2022-06-23 08:43] LABS: Albumin 3.6 g/dL (3.5-5.0); Calcium 8.4 mg/dL (8.4-10.2); Total Bilirubin 0.5 mg/dL (0.2-1.3); Total Protein 5.8 g/dL (6.3-8.2)
--- NOTE | 2022-06-23 10:05 | CA ---
Transthoracic Echo Report Name: Kevin Mcknight Age: 72 Gender: M : 1950 Exam Date: 06/22/2022 10:28 Exam Location: [place] Echo Ht (in): 69 Wt (lb): 240 Ordering Physician: Janina Knight Attending/Referring Phys: [employer] Tona Brandon RDCS Procedure CPT: Indications: sob, elevated troponin Cardiac Hx: Technical Quality: Fair Contrast 1: Total Dose (mL): Contrast 2: Total Dose (mL): MEASUREMENTS (Male / Female) Normal Values 2D ECHO LV Diastolic Diameter PLAX 5.8 cm 4.2 - 5.9 / 3.9 - 5.3 cm LV Systolic Diameter PLAX 3.2 cm IVS Diastolic Thickness 1.1 cm 0.6 - 1.0 / 0.6 - 0.9 cm LVPW Diastolic Thickness 1.1 cm 0.6 - 1.0 / 0.6 - 0.9 cm LV Relative Wall Thickness 0.4 RV Internal Dim ED PLAX 3.8 cm LA Systolic Diameter LX 4.1 cm 3.0 - 4.0 / 2.7 - 3.8 cm LA Volume 77.8 cm??? 18 - 58 / 22 - 52 cm??? M-MODE Aortic Root Diameter MM 3.2 cm MV E Point Septal Separation 1.0 cm AV Cusp Separation MM 1.5 cm DOPPLER AV Peak Velocity 143.6 cm/s AV Peak Gradient 8.3 mmHg MV Area PHT 3.2 cm??? Mitral E Point Velocity 158.2 cm/s Mitral A Point Velocity 125.1 cm/s Mitral E to A Ratio 1.3 MV Deceleration Time 236.7 ms MV E' Velocity 5.7 cm/s Mitral E to MV E' Ratio 27.9 TR Peak Velocity 405.8 cm/s TR Peak Gradient 65.9 mmHg Right Ventricular Systolic Press 69.0 mmHg FINDINGS Left Ventricle Left ventricular ejection fraction is estimated at 40-45 %. Left ventricular cavity size normal. Mildly increased septal wall thickness. Right Ventricle Mild right ventricular dilatation. Severe pulmonary hypertension. Right Atrium Normal right atrial size. Left Atrium Moderately increased left atrial volume. Mildly increased left atrial area. Mitral Valve Mitral annular calcification. Eltc-is-qgxhnfao mitral regurgitation. Aortic Valve Focal thickening of the aortic valve cusps. No aortic valve stenosis or regurgitation. Tricuspid Valve Zdql-[id number] tricuspid regurgitation. Pulmonic Valve Pulmonic valve not well visualized. Pericardium Normal pericardium. No pericardial effusion. Aorta Normal size aortic root and proximal ascending aorta. CONCLUSIONS Reduced LV systolic function ejection fraction around 40% Previewed by: Dr. Vinay Plasencia MD (Electronically Signed) Final Date: 23 June 2022 10:04
--- NOTE | 2022-06-23 11:34 | CDI ---
Documentation Clarification Form Date: 06/23/2022 11:16:45 AM From: Roseline Bowers CCS, CCDS Admit Date: 06/20/2022 11:43:00 PM Patient Name: Kevin Mcknight Visit Number: [id number] Discharge Date: ATTENTION: The Clinical Documentation Specialists (CDI) and [facility] Coding Staff appreciate your assistance in clarifying documentation. Please respond to the clarification below the line at the bottom and electronically sign. The CDI & [facility] Coding staff will review the response and follow-up if needed. Please note: Queries are made part of the Legal Health Record. If you have any questions, please contact the author of this message via ITS. Dr. Chichi Chen: Unspecified Anemia is documented in the patient's history without further specificity. Additional specificity regarding the Type & Acuity of Anemia is requested. History/Risk Factors per the 06/22 H/P: Hypertension, Hyperlipidemia, DM, Paroxysmal Atrial Fibrillation, CAD, LA with history of CABG and Stent, PVD, GI Bleed, GERD, CKD Stage III, Former Smoker. Clinical indicators: Presented to the ED on 06/20 with SOB. Recently admitted to the hospital with GI Bleed. The patient's anticoagulation was held due to GI Bleed. Has 2+ pitting edema to bilateral lower extremities. Admit with Unstable Angina. Hemoglobin 06/20: 10.0. 06/21: 9.6. 06/22: 8.9. 06/23: 8.9. Hematocrit 06/20: 30.8. 06/21: 31.3. 06/22: 28.7. 06/23: 28.0. Treatment 06/20: O2 2Lnc, po Aspirin 324 mg x1, IV heparin 4,000 units x1, IV Heparin drip, Nitro 0.4 mg sl q5M/prn, IV Heparin 250 mls @ 10 mls/hr q24H. Home meds: Jardiance, Ecotrin low dose, Ranexa, pravastatin Na, Protonix, Nitro sl prn, Singulair, Toprol XL, Magnesium, Insulin sq, Zyloprim, Vit D3. Please clarify the type and acuity of Anemia, if known: [ xxx ] Chronic blood loss anemia [ ] Hemolytic anemia [ ] Drug induced anemia [ ] Nutritional anemia [ ] Anemia of chronic kidney disease [ ] Anemia of chronic disease [ ] Unable to determine [ ] Other, please specify: (Template Last Revised: September 2020) [facility]
[2022-06-23 11:56] LABS: Glucose,Whole Blood 113 mg/dL (70-110)
[2022-06-23] MEDS: ASPIRIN 81 MG PO SCH (13:12)
[2022-06-23] MEDS: allopurinoL 100 MG TAB PO SCH (13:12)
[2022-06-23] MEDS: MONTELUKAST 10 MG TAB PO SCH (13:12)
[2022-06-23] MEDS: METOPROLOL SUCCINATE (ER) 50 MG TAB.ER.24H PO SCH (13:12)
[2022-06-23] MEDS: MAGNESIUM OXIDE 400 MG TAB PO SCH (13:12)
[2022-06-23] MEDS: RANOLAZINE 500 MG TAB.ER.12H PO SCH ×2 (13:12→20:02)
[2022-06-23] MEDS: CHOLECALCIFEROL 125 MCG (5000 IU) TABLET PO SCH (13:12)
[2022-06-23] MEDS: INSULIN NPH 100 UNIT/ML 10 ML VIAL SQ SCH (13:13)
[2022-06-23] MEDS: DAPAGLIFLOZIN PROPANEDIOL 5 MG TABLET PO SCH (13:16)
[2022-06-23 16:45] LABS: Glucose,Whole Blood 128 mg/dL (70-110)
--- NOTE | 2022-06-23 17:15 | P.PN ---
Subjective Progress Note Date: 06/23/22 Kevin Mcknight, is a 72 year-old male who presented to [facility] emergency room with a chief complaint of chest pain, on and off for the last 4 days, patient has been also complaining of worsening shortness of breath, he has a known history of hypertension, hyperlipidemia, diabetes mellitus, paroxysmal atrial fibrillation , coronary artery disease with previous history of coronary artery bypass graft surgery in 2005, and history of angioplasty in 2014 patient also has a known history of peripheral vascular disease with recent intervention by Dr. Porras and Dr. Meeks in March 2022. Patient also had recent history of rectal bleeding he presented to [facility] about 2 weeks ago with rectal bleeding and was transferred to [facility], he states that he did not have any EGD or colonoscopy and rectal bleeding stopped spontaneously. He was evaluated in the emergency room vital examination on presentation revealed a temperature of 98.2 pulse 76 respiration 16 blood pressure 139/75 pulse ox 99% on room air Laboratory data revealed a white blood count of 7.8 hemoglobin 10.0 platelet count 296 d-dimer 1.8 BUN 21 creatinine 1.48 troponin level 0.318 BNP 3470 Testing in the emergency room revealed CT angiogram of the chest revealed no evidence of pulmonary embolism, patient had evidence of bilateral pleural effusion and basilar pulmonary infiltrates and atelectasis. Patient was admitted to medical floor for further evaluation and treatment On 06/22/2022 patient is alert and oriented 3. 2-D echo has been ordered per cardiology. Patient remains on heparin drip. Patient denies chest pain. Patient does report shortness breath with activity. Patient denies nausea vomiting or diarrhea. Patient denies any urinary burning or frequency On 06/23/2022 patient was seen and examined on the telemetry floor, he is alert and oriented 3. 2-D echo has been ordered per cardiology. Patient remains on heparin drip. Patient denies chest pain. Patient does report shortness breath with activity. Patient denies nausea vomiting or diarrhea. Patient denies any urinary burning or frequency. Initially plan per cardiology was to proceed was cardiac catheterization today however creatinine was mildly increased today and decision was made to postpone cardiac catheterization until a.m. tomorrow Objective - Vital Signs Vital signs: Vital Signs Temp 98 F 06/23/22 04:00 Pulse 70 06/23/22 04:00 Resp 12 06/23/22 04:00 BP 135/60 06/23/22 04:00 Pulse Ox 97 06/23/22 04:00 FiO2 Intake & Output 06/22/22 06/23/22 06/23/22 18:59 06:59 18:59 Intake Total 617.441 Balance 617.441 Intake: Intake, IV Titration 174.441 Amount Heparin Sod,Pork in 0.45% 174.441 NaCl 25,000 unit In 0.45 % NaCl 1 250ml.bag @ 9. 186 UNITS/KG/HR 10 mls/hr IV .[facility] Rx#: [id number] Oral 443 Other: Voiding Method Toilet Toilet # Voids 1 - Exam In general patient is alert and oriented 3 in no distress HEENT head normocephalic and atraumatic Neck is supple no JVD no goiter no lymphadenopathy no carotid bruit Chest examination is clear to auscultation no crackles no wheezing Cardiac exam reveals regular heart sounds S1 and S2 no gallops no murmurs Abdomen is soft nontender no organomegaly with normal bowel sounds Extremity exam reveals no edema no cyanosis or clubbing Neurological examination reveals no gross focal deficits - Labs CBC & Chem 7: 06/23/22 07:13 06/23/22 07:13 Labs: Abnormal Lab Results - Last 24 Hours (Table) 06/22/22 06/22/22 06/22/22 Range/Units 11:52 15:05 16:50 RBC (4.30-5.90) m/uL Hgb (13.0-17.5) gm/dL Hct (39.0-53.0) % APTT 47.8 H (22.0-30.0) sec BUN (9-20) mg/dL Creatinine (0.66-1.25) mg/dL Glucose (74-99) mg/dL POC Glucose (mg/dL) 198 H 124 H (70-110) mg/dL Total Protein (6.3-8.2) g/dL 06/22/22 06/23/22 06/23/22 Range/Units 20:00 07:13 07:13 RBC 3.10 L (4.30-5.90) m/uL Hgb 8.9 L (13.0-17.5) gm/dL Hct 28.0 L (39.0-53.0) % APTT (22.0-30.0) sec BUN 23 H (9-20) mg/dL Creatinine 1.54 H (0.66-1.25) mg/dL Glucose 137 H (74-99) mg/dL POC Glucose (mg/dL) 152 H (70-110) mg/dL Total Protein 5.8 L (6.3-8.2) g/dL 06/23/22 Range/Units 07:13 RBC (4.30-5.90) m/uL Hgb (13.0-17.5) gm/dL Hct (39.0-53.0) % APTT 48.2 H (22.0-30.0) sec BUN (9-20) mg/dL Creatinine (0.66-1.25) mg/dL Glucose (74-99) mg/dL POC Glucose (mg/dL) (70-110) mg/dL Total Protein (6.3-8.2) g/dL Assessment and Plan Plan: Non-ST elevation myocardial infarction Paroxysmal atrial fibrillation, patient was maintained on supplemental however this was held 2 weeks ago due to rectal bleeding Known history of coronary artery disease with history of coronary artery bypass graft surgery and history of angioplasty in 2014 Underlying history of insulin-dependent diabetes mellitus Underlying history of hypertension Underlying history of hyperlipidemia Underlying history of gout Elevated d-dimer, pulmonary embolism was ruled out Underlying history of chronic kidney disease stage III Underlying history of anemia Recent history of rectal bleed At this time patient was seen and examined Home medications reviewed and reordered Patient was started on IV heparin in the emergency room Will monitor CBC closely due to recent history of GI bleed Plan per cardiology is for echocardiogram today and possible cardiac catheteriz ation in a.m. Will follow closely
[2022-06-23 19:59] LABS: Glucose,Whole Blood 156 mg/dL (70-110)
[2022-06-23] MEDS: PRAVASTATIN SODIUM 80 MG TAB PO SCH (20:02)
[2022-06-24 06:09] LABS: Glucose,Whole Blood 90 mg/dL (70-110)
[2022-06-24] MEDS: INSULIN ASPART (NovoLOG) 100 UNIT/ML VIAL SQ SCH ×4 (06:15→20:34)
[2022-06-24] MEDS: PANTOPRAZOLE 40 MG TABLET PO SCH (06:16)
--- NOTE | 2022-06-24 07:50 | P.PN ---
Subjective Progress Note Date: 06/24/22 Principal diagnosis: CAD/PAD The patient is a pleasant 72-year-old gentleman who sees Dr. Hendricks irregularly was coronary artery disease and prior revascularization as well as lower extremity peripheral arterial disease and prior revascularization as well as hypertension and dyslipidemia who was admitted to the hospital with symptoms of generalized fatigue and weakness associated with shortness of breath. June [id number] The patient was seen this morning. He is asymptomatic. He stated overall he is feeling better. He reports no pain in the chest at this point. I discussed the case with Dr. Hendricks, the patient's primary clinical quality rn, who advised conservative medical approach at this point in the light of chronic kidney disease. I am going to give the patient up and around and if he is asymptomatic he potentially can be discharged home. I'm adding Plavix to the current medical regimen. He underwent an echo which revealed mildly impaired LV function was EF of around 40% with no evidence of wall motion abnormalities. Objective - Vital Signs Vital signs: Vital Signs Temp 97.9 F 06/24/22 03:09 Pulse 57 L 06/24/22 03:09 Resp 18 06/24/22 03:09 BP 168/51 06/24/22 03:09 Pulse Ox 98 06/24/22 03:09 FiO2 Intake & Output 06/23/22 06/24/22 06/24/22 18:59 06:59 18:59 Intake Total 720 Balance 720 Intake: Oral 720 Other: Voiding Method Toilet Toilet - Constitutional General appearance: Present: no acute distress - Respiratory Respiratory: bilateral: diminished - Cardiovascular Rhythm: regular Heart sounds: normal: S1, S2 - Labs CBC & Chem 7: 06/23/22 07:13 06/23/22 07:13 Labs: Abnormal Lab Results - Last 24 Hours (Table) 06/23/22 06/23/22 06/23/22 Range/Units 07:13 07:13 07:13 RBC 3.10 L (4.30-5.90) m/uL Hgb 8.9 L (13.0-17.5) gm/dL Hct 28.0 L (39.0-53.0) % APTT 48.2 H (22.0-30.0) sec BUN 23 H (9-20) mg/dL Creatinine 1.54 H (0.66-1.25) mg/dL Glucose 137 H (74-99) mg/dL POC Glucose (mg/dL) (70-110) mg/dL Total Protein 5.8 L (6.3-8.2) g/dL 06/23/22 06/23/22 06/23/22 Range/Units 11:55 16:44 19:57 RBC (4.30-5.90) m/uL Hgb (13.0-17.5) gm/dL Hct (39.0-53.0) % APTT (22.0-30.0) sec BUN (9-20) mg/dL Creatinine (0.66-1.25) mg/dL Glucose (74-99) mg/dL POC Glucose (mg/dL) 113 H 128 H 156 H (70-110) mg/dL Total Protein (6.3-8.2) g/dL Assessment and Plan Assessment: Assessment #1 coronary artery disease seems to be stable #2 peripheral arterial disease seems to be stable #3 chronic kidney disease #4 multiple comorbid conditions Plan #1 add Plavix to the current medical regimen #2 the patient can be discharged home in the next 12-24 hours
[2022-06-24] MEDS ORDERED: CLOPIDOGREL 75 MG TAB PO SCH (09:00)
[2022-06-24] MEDS: allopurinoL 100 MG TAB PO SCH (09:11)
[2022-06-24] MEDS: METOPROLOL SUCCINATE (ER) 50 MG TAB.ER.24H PO SCH (09:11)
[2022-06-24] MEDS: INSULIN NPH 100 UNIT/ML 10 ML VIAL SQ SCH (09:11)
[2022-06-24] MEDS: MONTELUKAST 10 MG TAB PO SCH (09:11)
[2022-06-24] MEDS: RANOLAZINE 500 MG TAB.ER.12H PO SCH ×2 (09:11→20:34)
[2022-06-24] MEDS: ASPIRIN 81 MG PO SCH (09:12)
[2022-06-24] MEDS: DAPAGLIFLOZIN PROPANEDIOL 5 MG TABLET PO SCH (09:12)
[2022-06-24] MEDS: MAGNESIUM OXIDE 400 MG TAB PO SCH (09:12)
[2022-06-24] MEDS: CHOLECALCIFEROL 125 MCG (5000 IU) TABLET PO SCH (09:13)
--- NOTE | 2022-06-24 11:16 | P.PN ---
Subjective Progress Note Date: 06/24/22 Kevin Mcknight, is a 72 year-old male who presented to [facility] emergency room with a chief complaint of chest pain, on and off for the last 4 days, patient has been also complaining of worsening shortness of breath, he has a known history of hypertension, hyperlipidemia, diabetes mellitus, paroxysmal atrial fibrillation , coronary artery disease with previous history of coronary artery bypass graft surgery in 2005, and history of angioplasty in 2014 patient also has a known history of peripheral vascular disease with recent intervention by Dr. Porras and Dr. Meeks in March 2022. Patient also had recent history of rectal bleeding he presented to [facility] about 2 weeks ago with rectal bleeding and was transferred to [facility], he states that he did not have any EGD or colonoscopy and rectal bleeding stopped spontaneously. He was evaluated in the emergency room vital examination on presentation revealed a temperature of 98.2 pulse 76 respiration 16 blood pressure 139/75 pulse ox 99% on room air Laboratory data revealed a white blood count of 7.8 hemoglobin 10.0 platelet count 296 d-dimer 1.8 BUN 21 creatinine 1.48 troponin level 0.318 BNP 3470 Testing in the emergency room revealed CT angiogram of the chest revealed no evidence of pulmonary embolism, patient had evidence of bilateral pleural effusion and basilar pulmonary infiltrates and atelectasis. Patient was admitted to medical floor for further evaluation and treatment On 06/22/2022 patient is alert and oriented 3. 2-D echo has been ordered per cardiology. Patient remains on heparin drip. Patient denies chest pain. Patient does report shortness breath with activity. Patient denies nausea vomiting or diarrhea. Patient denies any urinary burning or frequency On 06/23/2022 patient was seen and examined on the telemetry floor, he is alert and oriented 3. 2-D echo has been ordered per cardiology. Patient remains on heparin drip. Patient denies chest pain. Patient does report shortness breath with activity. Patient denies nausea vomiting or diarrhea. Patient denies any urinary burning or frequency. Initially plan per cardiology was to proceed was cardiac catheterization today however creatinine was mildly increased today and decision was made to postpone cardiac catheterization until a.m. tomorrow On 06/24/2022 patient is alert and oriented 3. 2-D echo completed showing an EF of 40%. Plavix had been started on patient per cardiology. No plans for cardiac catheterization at this time. Discussion was held with Dr. Gordon per cardiology and was discussed the possibility of stopping Plavix due to increased risk of bleeding. This was discussed with nursing staff to reach out to Dr. Gordon to assess whether Plavix should be DC'd. Repeat CBC and CMP have been ordered to monitor hemoglobin and kidney enzymes. At this time will keep patient for another day to assess hemoglobin and kidney levels and to clarify discharge medications. At this time patient denies chest pain. Patient is still having some shortness of breath. Patient denies nausea vomiting or diarrhea. Patient denies any urinary burning or frequency Objective - Vital Signs Vital signs: Vital Signs Temp 97.8 F 06/24/22 09:11 Pulse 73 06/24/22 09:11 Resp 18 06/24/22 09:11 BP 134/63 06/24/22 09:11 Pulse Ox 97 06/24/22 09:11 FiO2 Intake & Output 06/23/22 06/24/22 06/24/22 18:59 06:59 18:59 Intake Total 720 Balance 720 Intake: Oral 720 Other: Voiding Method Toilet Toilet Toilet - Exam In general patient is alert and oriented 3 in no distress HEENT head normocephalic and atraumatic Neck is supple no JVD no goiter no lymphadenopathy no carotid bruit Chest examination is clear to auscultation no crackles no wheezing Cardiac exam reveals regular heart sounds S1 and S2 no gallops no murmurs Abdomen is soft nontender no organomegaly with normal bowel sounds Extremity exam reveals no edema no cyanosis or clubbing Neurological examination reveals no gross focal deficits - Labs CBC & Chem 7: 06/23/22 07:13 06/23/22 07:13 Labs: Abnormal Lab Results - Last 24 Hours (Table) 06/23/22 06/23/22 06/23/22 Range/Units 11:55 16:44 19:57 POC Glucose (mg/dL) 113 H 128 H 156 H (70-110) mg/dL Assessment and Plan Plan: Non-ST elevation myocardial infarction Paroxysmal atrial fibrillation, patient was maintained on supplemental however this was held 2 weeks ago due to rectal bleeding Known history of coronary artery disease with history of coronary artery bypass graft surgery and history of angioplasty in 2015 Underlying history of insulin-dependent diabetes mellitus Underlying history of hypertension Underlying history of hyperlipidemia Underlying history of gout Elevated d-dimer, pulmonary embolism was ruled out Underlying history of chronic kidney disease stage III Underlying history of anemia Recent history of rectal bleed At this time patient was seen and examined Home medications reviewed and reordered Per cardiology no plans for cardiac catheterization at this time Plavix to be addressed per cardiology Repeat labs ordered Anticipate discharge in the next 24-48 hours
[2022-06-24 12:07] LABS: HGB 9.2 gm/dL (13.0-17.5); Hypochromasia Marked; MCH 28.6 pg (25.0-35.0); MCHC 31.8 g/dL (31.0-37.0); MCV 90.1 fL (80.0-100.0); Platelet Count 233 k/uL (150-450); Poikilocytosis Moderate; RBC 3.21 m/uL (4.30-5.90); RDW 13.8 % (11.5-15.5); WBC 5.4 k/uL (3.8-10.6)
[2022-06-24 12:22] LABS: Albumin 3.8 g/dL (3.5-5.0); Calcium 8.7 mg/dL (8.4-10.2); Total Bilirubin 0.3 mg/dL (0.2-1.3); Total Protein 6.1 g/dL (6.3-8.2)
[2022-06-24 12:38] LABS: Glucose,Whole Blood 121 mg/dL (70-110)
[2022-06-24 16:45] LABS: Glucose,Whole Blood 180 mg/dL (70-110)
[2022-06-24 20:14] LABS: Glucose,Whole Blood 170 mg/dL (70-110)
[2022-06-24] MEDS: PRAVASTATIN SODIUM 80 MG TAB PO SCH (20:34)
[2022-06-25 03:15] VITALS: RESP 18
[2022-06-25 05:48] LABS: Glucose,Whole Blood 127 mg/dL (70-110)
[2022-06-25] MEDS: INSULIN ASPART (NovoLOG) 100 UNIT/ML VIAL SQ SCH ×2 (05:49→12:02)
[2022-06-25] MEDS: PANTOPRAZOLE 40 MG TABLET PO SCH (06:00)
--- NOTE | 2022-06-25 06:56 | P.PN ---
Subjective Progress Note Date: 06/25/22 Principal diagnosis: CAD/PAD The patient is a pleasant 72-year-old gentleman who sees Dr. Hendricks irregularly was coronary artery disease and prior revascularization as well as lower extremity peripheral arterial disease and prior revascularization as well as hypertension and dyslipidemia who was admitted to the hospital with symptoms of generalized fatigue and weakness associated with shortness of breath. June 242021 The patient was seen this morning. He is asymptomatic. He stated overall he is feeling better. He reports no pain in the chest at this point. I discussed the case with Dr. Hendricks, the patient's primary senior sales assistant, who advised conservative medical approach at this point in the light of chronic kidney disease. I am going to give the patient up and around and if he is asymptomatic he potentially can be discharged home. I'm adding Plavix to the current medical regimen. He underwent an echo which revealed mildly impaired LV function was EF of around 40% with no evidence of wall motion abnormalities. June 252021 The patient was seen this morning. He reports no pain in the chest and no shortness of breath. Hemodynamically he is stable. The creatinine continues to be stable. Yesterday I consider adding Plavix to the current medical regimen but he does have history of gastrointestinal bleeding and for that reason we stopped the Plavix. Currently he is on aspirin and he is on high intensity statin. From the cardiac standpoint of view, the patient potentially can be discharged in the next 12-24 hours. Objective - Vital Signs Vital signs: Vital Signs Temp 98.4 F 06/25/22 03:14 Pulse 54 L 06/25/22 03:14 Resp 18 06/25/22 03:14 BP 121/51 06/25/22 03:14 Pulse Ox 96 06/25/22 03:14 FiO2 Intake & Output 06/24/22 06/24/22 06/25/22 06:59 18:59 06:59 Intake Total 100 Balance 100 Intake: Oral 100 Other: Voiding Method Toilet Toilet Toilet - Constitutional General appearance: Present: no acute distress - Respiratory Respiratory: bilateral: diminished - Cardiovascular Rhythm: regular Heart sounds: normal: S1, S2 - Labs CBC & Chem 7: 06/24/22 11:39 06/24/22 11:39 Labs: Abnormal Lab Results - Last 24 Hours (Table) 06/24/22 06/24/2206/24/22 Range/Units 11:39 11:39 12:36 RBC 3.21 L (4.30-5.90) m/uL Hgb 9.2 L (13.0-17.5) gm/dL Hct 29.0 L (39.0-53.0) % BUN 23 H (9-20) mg/dL Creatinine 1.57 H (0.66-1.25) mg/dL Glucose 124 H (74-99) mg/dL POC Glucose (mg/dL) 121 H (70-110) mg/dL Alkaline Phosphatase 131 H (38-126) U/L Total Protein 6.1 L (6.3-8.2) g/dL 06/24/22 06/24/22 06/25/22 Range/Units 16:43 20:12 05:46 RBC (4.30-5.90) m/uL Hgb (13.0-17.5) gm/dL Hct (39.0-53.0) % BUN (9-20) mg/dL Creatinine (0.66-1.25) mg/dL Glucose (74-99) mg/dL POC Glucose (mg/dL) 180 H 170 H 127 H (70-110) mg/dL Alkaline Phosphatase (38-126) U/L Total Protein (6.3-8.2) g/dL Assessment and Plan Assessment: Assessment #1 coronary artery disease seems to be stable #2 peripheral arterial disease seems to be stable #3 chronic kidney disease #4 multiple comorbid conditions Plan #1 continue the current medical regimen #2 the patient can be discharged home in the next 12-24 hours
[2022-06-25] MEDS: RANOLAZINE 500 MG TAB.ER.12H PO SCH (08:46)
[2022-06-25] MEDS: MONTELUKAST 10 MG TAB PO SCH (08:46)
[2022-06-25] MEDS: CHOLECALCIFEROL 125 MCG (5000 IU) TABLET PO SCH (08:46)
[2022-06-25] MEDS: DAPAGLIFLOZIN PROPANEDIOL 5 MG TABLET PO SCH (08:46)
[2022-06-25] MEDS: METOPROLOL SUCCINATE (ER) 50 MG TAB.ER.24H PO SCH (08:46)
[2022-06-25] MEDS: ASPIRIN 81 MG PO SCH (08:46)
[2022-06-25] MEDS: allopurinoL 100 MG TAB PO SCH (08:46)
[2022-06-25] MEDS: INSULIN NPH 100 UNIT/ML 10 ML VIAL SQ SCH (08:47)
[2022-06-25 09:13] LABS: Basophils % (A) 1 %; Eosinophils # (A) 0.1 k/uL (0-0.7); Eosinophils % (A) 2 %; HCT 32.3 % (39.0-53.0); HGB 9.7 gm/dL (13.0-17.5); Hypochromasia Marked; Lymphocytes # (A) 1.6 k/uL (1.0-4.8); Lymphocytes % (A) 26 %; MCH 27.1 pg (25.0-35.0); MCHC 29.9 g/dL (31.0-37.0); MCV 90.5 fL (80.0-100.0); Monocytes # (A) 0.3 k/uL (0-1.0); Monocytes % (A) 5 %; Neutrophils # (A) 3.7 k/uL (1.3-7.7); Neutrophils % (A) 63 %; Platelet Count 264 k/uL (150-450); Poikilocytosis Moderate; RBC 3.57 m/uL (4.30-5.90); RDW 13.7 % (11.5-15.5); WBC 5.9 k/uL (3.8-10.6)
[2022-06-25 09:23] LABS: Albumin 4.1 g/dL (3.5-5.0); Calcium 8.6 mg/dL (8.4-10.2); Potassium 4.4 mmol/L (3.5-5.1); Total Bilirubin 0.6 mg/dL (0.2-1.3); Total Protein 6.5 g/dL (6.3-8.2)
[2022-06-25 12:10] VITALS: BP 150/67; PULSE 58; TEMP 97.8
[2022-06-25] MEDS: MAGNESIUM OXIDE 400 MG TAB PO SCH (12:32)
--- NOTE | 2022-06-25 13:52 | P.DS ---
Providers Date of admission: 06/20/22 23:43 Expected date of discharge: 06/25/22 Attending physician: Chichi Chen Consults: 06/20/22 23:43 Consult Physician Urgent Consulting Provider: Angel Cheney Consult Reason/Comments: unstable angina Do you want consulting provider notified?: Yes Primary care physician: [facility] Course: Diagnosis on discharge: Acute Non-ST elevation myocardial infarction Paroxysmal atrial fibrillation, patient was maintained on supplemental however this was held 2 weeks ago due to rectal bleeding Known history of coronary artery disease with history of coronary artery bypass graft surgery and history of angioplasty in 2014 Underlying history of insulin-dependent diabetes mellitus Underlying history of hypertension Underlying history of hyperlipidemia Underlying history of gout Elevated d-dimer, pulmonary embolism was ruled out Underlying history of chronic kidney disease stage III Underlying history of anemia Recent history of rectal bleed Hospital course: Kevin Mcknight, is a 72 year-old male who presented to [facility] emergency room with a chief complaint of chest pain, on and off for the last 4 days, patient has been also complaining of worsening shortness of breath, he has a known history of hypertension, hyperlipidemia, diabetes mellitus, paroxysmal atrial fibrillation , coronary artery disease with previous history of coronary artery bypass graft surgery in 2005, and history of angioplasty in 2014 patient also has a known history of peripheral vascular disease with recent intervention by Dr. Porras and Dr. Meeks in March 2022. Patient also had recent history of rectal bleeding he presented to [facility] about 2 weeks ago with rectal bleeding and was transferred to [facility], he states that he did not have any EGD or colonoscopy and rectal bleeding stopped spontaneously. He was evaluated in the emergency room vital examination on presentation revealed a temperature of 98.2 pulse 76 respiration 16 blood pressure 139/75 pulse ox 99% on room air Laboratory data revealed a white blood count of 7.8 hemoglobin 10.0 platelet count 296 d-dimer 1.8 BUN 21 creatinine 1.48 troponin level 0.318 BNP 3470 Testing in the emergency room revealed CT angiogram of the chest revealed no evidence of pulmonary embolism, patient had evidence of bilateral pleural effusion and basilar pulmonary infiltrates and atelectasis. Patient was admitted to medical floor for further evaluation and treatment On 06/22/2022 patient is alert and oriented 3. 2-D echo has been ordered per cardiology. Patient remains on heparin drip. Patient denies chest pain. Patient does report shortness breath with activity. Patient denies nausea vomiting or diarrhea. Patient denies any urinary burning or frequency On 06/23/2022 patient was seen and examined on the telemetry floor, he is alert and oriented 3. 2-D echo has been ordered per cardiology. Patient remains on heparin drip. Patient denies chest pain. Patient does report shortness breath with activity. Patient denies nausea vomiting or diarrhea. Patient denies any urinary burning or frequency. Initially plan per cardiology was to proceed was cardiac catheterization today however creatinine was mildly increased today and decision was made to postpone cardiac catheterization until a.m. tomorrow On 06/24/2022 patient is alert and oriented 3. 2-D echo completed showing an EF of 40%. Plavix had been started on patient per cardiology. No plans for cardiac catheterization at this time. Discussion was held with Dr. Gordon per cardiology and was discussed the possibility of stopping Plavix due to increased risk of bleeding. This was discussed with nursing staff to reach out to Dr. Gordon to assess whether Plavix should be DC'd. Repeat CBC and CMP have been ordered to monitor hemoglobin and kidney enzymes. At this time will keep patient for another day to assess hemoglobin and kidney levels and to clarify discharge medications. At this time patient denies chest pain. Patient is still having some shortness of breath. Patient denies nausea vomiting or diarrhea. Patient denies any urinary burning or frequency On 06/25/2022 patient was seen and examined on the telemetry floor, he is alert and oriented 3 in no distress he denies chest pain or shortness of breath, he was evaluated by cardiology earlier and was cleared for discharge. During this admission patient was considered for cardiac catheterization several times, however marginal kidney function that failed to improve with IV hydration led to canceling cardiac catheterization plans repeatedly. Consideration was also made to adding Plavix to patient medications regimen, however he was recently admitted with gastrointestinal bleeding and Plavix was discontinued by cardiology. Patient will be discharged home today he will be followed by his primary care physician Dr. Hall, and he will be followed by cardiology in the next week. Patient was instructed to return to emergency room if having new episodes of chest pain. Patient Condition at Discharge: Serious Plan - Discharge Summary Discharge Rx Participant: Yes New Discharge Prescriptions: Continue allopurinoL [Zyloprim] 100 mg PO DAILY [employer]-3 Fatty Acids/Fish Oil [Fish Oil 1,000 mg Softgel] 1 cap PO BID Nitroglycerin Sl Tabs [Nitrostat] 0.4 mg SL Q5M PRN PRN Reason: Chest Pain Montelukast [Singulair] 10 mg PO DAILY Ranolazine [Ranexa] 500 mg PO BID Pravastatin Sodium 80 mg PO HS Empagliflozin [Jardiance] 12.5 mg PO DAILY Insulin NPH [humuLIN N] 52 unit SQ DAILY Metoprolol Succinate (ER) [Toprol XL] 150 mg PO DAILY Aspirin EC [Ecotrin Low Dose] 81 mg PO DAILY Cholecalciferol (Vitamin D3) [Vitamin D3 (125 MCG = 5,000 IU)] 125 mcg PO DAILY Magnesium Oxide [Magnesium] 1,000 mg PO DAILY@1200 Pantoprazole [Protonix] 40 mg PO DAILY Discharge Medication List [employer]-3 Fatty Acids/Fish Oil [Fish Oil 1,000 mg Softgel] 1 cap PO BID 03/16/15 [History] allopurinoL [Zyloprim] 100 mg PO DAILY 03/16/15 [History] Nitroglycerin Sl Tabs [Nitrostat] 0.4 mg SL Q5M PRN 05/12/16 [History] Montelukast [Singulair] 10 mg PO DAILY 08/31/17 [History] Ranolazine [Ranexa] 500 mg PO BID 08/31/17 [History] Pravastatin Sodium 80 mg PO HS 01/15/19 [History] Empagliflozin [Jardiance] 12.5 mg PO DAILY 08/04/21 [History] Cholecalciferol (Vitamin D3) [Vitamin D3 (125 MCG = 5,000 IU)] 125 mcg PO DAILY 02/10/22 [History] Insulin NPH [humuLIN N] 52 unit SQ DAILY 02/10/22 [History] Magnesium Oxide [Magnesium] 1,000 mg PO DAILY@1200 02/10/22 [History] Metoprolol Succinate (ER) [Toprol XL] 150 mg PO DAILY 02/10/22 [History] Pantoprazole [Protonix] 40 mg PO DAILY 02/10/22 [History] Aspirin EC [Ecotrin Low Dose] 81 mg PO DAILY 06/20/22 [History] Follow up Appointment(s)/Referral(s): Samy Hendricks MD [STAFF PHYSICIAN] - 1 Week Kristel Hall MD [Primary Care Provider] - 1-2 days Patient Instructions/Handouts: Chest Pain (DC)
[2022-06-27 08:56] LABS: Glucose,Whole Blood 142 mg/dL (70-110)
== END 2022-06-25 14:32 | disposition home or self-care (01) | DRG 281 ==
LOC: EC 18:05 → 3SCARD 23:43
PROVIDERS: ADMIT Internal Medicine; ATTEND Internal Medicine
DX: I21.4 Non-ST elevation (NSTEMI) myocardial infarction (principal); I13.0 Hypertensive heart and chronic kidney disease with heart failure and stage 1 through stage 4 chronic kidney disease, or unspecified chronic kidney disease; I48.0 Paroxysmal atrial fibrillation; I25.10 Atherosclerotic heart disease of native coronary artery without angina pectoris; E11.22 Type 2 diabetes mellitus with diabetic chronic kidney disease; N18.30 Chronic kidney disease, stage 3 unspecified; I50.9 Heart failure, unspecified; E78.5 Hyperlipidemia, unspecified; I25.110 Atherosclerotic heart disease of native coronary artery with unstable angina pectoris; D50.0 Iron deficiency anemia secondary to blood loss (chronic); M47.9 Spondylosis, unspecified; M16.0 Bilateral primary osteoarthritis of hip; M10.9 Gout, unspecified; R79.1 Abnormal coagulation profile; I08.1 Rheumatic disorders of both mitral and tricuspid valves; Z20.822 Contact with and (suspected) exposure to COVID-19; E11.51 Type 2 diabetes mellitus with diabetic peripheral angiopathy without gangrene; Z79.4 Long term (current) use of insulin; Z95.1 Presence of aortocoronary bypass graft; Z95.5 Presence of coronary angioplasty implant and graft; Z87.19 Personal history of other diseases of the digestive system; Z87.891 Personal history of nicotine dependence; Z95.820 Peripheral vascular angioplasty status with implants and grafts; Z79.899 Other long term (current) drug therapy; Z79.82 Long term (current) use of aspirin; I25.2 Old myocardial infarction; Z88.2 Allergy status to sulfonamides; Z82.49 Family history of ischemic heart disease and other diseases of the circulatory system
CPT/HCPCS: 36415; 71046; 71275; 80053; 80061; 83605; 83880; 84484; 85025; 85027; 85379; 85610; 85730; 87636; 93005; 93306; 96374; 99285

== ENCOUNTER → 2023-01-05 | Outpatient (CLI) | payer MEDICARE ==
[2023-01-05 16:05] LABS: Basophils # (A) 0.04 X 10*3/uL (0.00-0.10); Basophils % (A) 0.5 %; Eosinophils # (A) 0.12 X 10*3/uL (0.04-0.35); Eosinophils % (A) 1.6 %; HCT 41.8 % (39.6-50.0); HGB 11.6 g/dL (13.0-17.0); Immature Grans, Automated 0.4 %; Lymphocytes # (A) 1.64 X 10*3/uL (0.90-5.00); Lymphocytes % (A) 21.8 %; MCHC 27.8 g/dL (32.0-37.0); MCV 82.8 fL (80.0-97.0); Mean Platelet Volume 9.8 fL (9.5-12.2); Monocytes # (A) 0.65 X 10*3/uL (0.20-1.00); Monocytes % (A) 8.6 %; NRBC Per 100 WBC 0 /100 WBCS (0.0-0.0); Neutrophils # (A) 5.04 X 10*3/uL (1.80-7.70); Neutrophils % (A) 67.1 %; Platelet Count 228 X 10*3/uL (140-440); RBC 5.05 X 10*6/uL (4.40-5.60); WBC 7.52 X 10*3/uL (4.50-10.00)
[2023-01-05 16:16] LABS: INR 0.92 (0.90-1.11); Prothrombin Time 10.4 sec (9.9-11.9)
[2023-01-05 16:26] LABS: African American GFR (CKD) 41.5 (60.0-200.0); Anion Gap 9.3 mmol/L (10.00-18.00); BUN/Creat Ratio 12.57 Ratio (12.00-20.00); Calcium 9.4 mg/dL (8.7-10.3); Carbon Dioxide 32.9 mmol/L (20.0-27.5); Magnesium 2.4 mg/dL (1.5-2.4); Non-African American GFR(CKD) 35.8 (60.0-200.0); Potassium 4.7 mmol/L (3.5-5.5)
== END | disposition home or self-care (01) ==
LOC: LABWHC1 08:21
PROVIDERS: ATTEND Internal Medicine Cardiovascular Disease
DX: Z01.812 Encounter for preprocedural laboratory examination (principal); I48.0 Paroxysmal atrial fibrillation
CPT/HCPCS: 36415; 80048; 83735; 85025; 85610; 86850; 86900; 86901

== ENCOUNTER 2023-01-14 05:08 | Inpatient (IN) | payer MEDICARE ==
--- NOTE | 2023-01-14 06:30 | ED ---
GI Bleed HPI - General Source: patient Mode of arrival: ambulatory Limitations: no limitations <Uyen Ibarra - Last Filed: 01/14/23 07:24> <Delfino Madera - Last Filed: 01/14/23 08:21> - General Chief complaint: GI Bleed Stated complaint: Blood in stool Time Seen by Provider: 01/14/23 05:15 - History of Present Illness Initial comments: 73-year-old male with past history of A. fib, GI bleed who presents emergency Department with 3 episodes of bloody stool. He reports to history of GI bleeding several times in the past due to gastritis and diverticulosis. He used to be on Eliquis. Stop taking this medication a few weeks ago and had a watchman procedure done on the . They did place him on Plavix after the procedure was performed. He also takes aspirin. States that he started bleeding yesterday morning. Has some lower abdominal cramping. No nausea or vomiting. No other alleviating, precipitating or modifying factors (Uyen Ibarra) - Related Data Home Medications Medication Instructions Recorded Confirmed allopurinoL [Zyloprim] 100 mg PO DAILY 03/16/15 11/03/22 Nitroglycerin Sl Tabs [Nitrostat] 0.4 mg SL Q5M PRN 05/12/16 11/03/22 Montelukast [Singulair] 10 mg PO DAILY 08/31/17 11/03/22 Ranolazine [Ranexa] 500 mg PO BID 08/31/17 11/03/22 Pravastatin Sodium 80 mg PO HS 01/15/19 11/03/22 Empagliflozin [Jardiance] 12.5 mg PO DAILY 08/04/21 11/03/22 Cholecalciferol (Vitamin D3) 125 mcg PO HS 02/10/22 11/03/22 [Vitamin D3 (125 MCG = 5,000 IU)] Insulin NPH [humuLIN N] 60 unit SQ DAILY 02/10/22 11/03/22 Magnesium Oxide [Magnesium] 1,000 mg PO DAILY@1200 02/10/22 11/03/22 Metoprolol Succinate (ER) [Toprol 100 mg PO BID 02/10/22 11/03/22 XL] Pantoprazole [Protonix] 40 mg PO DAILY 02/10/22 11/03/22 Aspirin EC [Ecotrin Low Dose] 81 mg PO DAILY 06/20/22 11/03/22 Multivitamins, Thera [Multivitamin 1 tab PO DAILY 10/18/22 11/03/22 (formulary)] Simethicone [Gas-X] 125 mg PO QID PRN 10/18/22 11/03/22 Cyanocobalamin [Vitamin B-12 1,000 mcg SQ Q60D 10/19/22 11/03/22 Injection] Amiodarone [Cordarone] 200 mg PO DAILY 11/03/22 11/03/22 Spironolactone [Aldactone] 25 mg PO DAILY 11/03/22 11/03/22 Previous Rx's Medication Instructions Recorded Apixaban [Eliquis] 2.5 mg PO BID tab 11/08/22 hydrALAZINE HCL [Apresoline] 50 mg PO BID tab 11/08/22 Allergies Allergy/AdvReac Type Severity Reaction Status Date / Time Sulfa (Sulfonamide Allergy Rash/Hives Verified 01/14/23 05:11 Antibiotics) sulfamethoxazole Allergy Rash/Hives Verified 01/14/23 05:11 [From Bactrim] trimethoprim [From Bactrim] Allergy Rash/Hives Verified 01/14/23 05:11 Review of Systems ROS Other: All systems not noted in ROS Statement are negative. <Uyen Ibarra - Last Filed: 01/14/23 07:24> ROS Other: All systems not noted in ROS Statement are negative. <Delfino Madera - Last Filed: 01/14/23 08:21> ROS Statement: Those systems with pertinent positive or pertinent negative responses have been documented in the HPI. Past Medical History Past Medical History: Atrial Fibrillation, Coronary Artery Disease (CAD), Chest Pain / Angina, Heart Failure, Diabetes Mellitus, GERD/Reflux, GI Bleed, Hyperlipidemia, Hypertension, Myocardial Infarction (AL), Osteoarthritis (OA), Renal Disease, Vascular Disorder Additional Past Medical History / Comment(s): IDDN type II, CKD stage III, rectal bleed with anemia, PAD, caratid artery disease, chronic low back pain/bilateral hip pain, past r foot gout, benign colon polyps Last Myocardial Infarction Date:: 09/2016, 06/20/22 History of Any Multi-Drug Resistant Organisms: None Reported Past Surgical History: Cholecystectomy, Coronary Bypass/CABG, Heart Catheterization, Heart Catheterization With Stent, Orthopedic Surgery, Tonsillectomy Additional Past Surgical History / Comment(s): Multiple peripheral revascularization procedures/stents/arthrectomies/ballooning, multiple aortagrams with runoffs, JOIE, , 2006 CABG 3 vessel, EGD, colonoscopies/polypectomies, cyst on back drained. Past Anesthesia/Blood Transfusion Reactions: No Reported Reaction Additional Past Anesthesia/Blood Transfusion Reaction / Comment(s): Pt has received blood in past without reaction. Date of Last Stent Placement:: 2013 Past Psychological History: No Psychological Hx Reported Smoking Status: Former smoker Past Alcohol Use History: None Reported Past Drug Use History: None Reported - Past Family History Father Family Medical History: Myocardial Infarction (AL) Additional Family Medical History / Comment(s): He had a AL in his 30s and had CABG in his 50s. Mother Family Medical History: Pulmonary Embolus <Uyen Ibarra - Last Filed: 01/14/23 07:24> General Exam Limitations: no limitations General appearance: alert, in no apparent distress Head exam: Present: atraumatic, normocephalic, normal inspection Eye exam: Present: normal appearance, PERRL, EOMI. Absent: scleral icterus, conjunctival injection, periorbital swelling ENT exam: Present: normal exam, mucous membranes moist Neck exam: Present: normal inspection. Absent: tenderness, meningismus, lymphadenopathy Respiratory exam: Present: normal lung sounds bilaterally. Absent: respiratory distress, wheezes, rales, rhonchi, stridor Cardiovascular Exam: Present: regular rate, normal rhythm, normal heart sounds. Absent: systolic murmur, diastolic murmur, rubs, gallop, clicks GI/Abdominal exam: Present: soft, normal bowel sounds. Absent: distended, tenderness, guarding, rebound, rigid Rectal exam: Present: heme (+) stool, bloody stool Extremities exam: Present: normal inspection, full ROM, normal capillary refill. Absent: tenderness, pedal edema, joint swelling, calf tenderness Back exam: Present: normal inspection Neurological exam: Present: alert, oriented X3, CN II-XII intact Psychiatric exam: Present: normal affect, normal mood Skin exam: Present: warm, dry, intact, normal color. Absent: rash <Uyen Ibarra - Last Filed: 01/14/23 07:24> Course Vital Signs 01/14/23 05:11 Temperature 97.8 F Pulse Rate 64 Respiratory 18 Rate Blood Pressure 144/64 O2 Sat by Pulse 98 Oximetry Medical Decision Making <Uyen Ibarra - Last Filed: 01/14/23 07:24> - Lab Data Result diagrams: 01/14/23 07:25 01/14/23 07:25 <Delfino Madera - Last Filed: 01/14/23 08:21> - Medical Decision Making Was pt. sent in by a medical professional or institution (, PA, EXECUTIVE CHAIRMAN, urgent care, hospital, or fpc...) When possible be specific @ -[No] Did you speak to anyone other than the patient for history (EMS, parent, family, police, friend...)? What history was obtained from this source @ -[No] Did you review nursing and triage notes (agree or disagree)? Why? @ -[I reviewed and agree with nursing and triage notes] Were old charts reviewed (outside hosp., previous admission, EMS record, old EKG, old radiological studies, urgent care reports/EKG's, fpc records)? Report findings @ -I reviewed the patient's previous discharge summary from October where he was admitted for GI bleed. Patient did have endoscopy at that time which demonstrated gastritis and diverticulosis Differential Diagnosis (chest pain, altered mental status, abdominal pain women, abdominal pain men, vaginal bleeding, weakness, fever, dyspnea, syncope, headache, dizziness, GI bleed, back pain, seizure, CVA, palpatations, mental health, musculoskeletal)? @ -Differential GI Bleed: Esophageal varices, aortoenteric fistula, Alexia-Wood, gastritis, peptic ulcer disease, diverticulosis, inflammatory bowel disease, hemorrhoids, fissure, colitis, malignancy, Meckels diverticulum, this is not meant to be an all- inclusive list. EKG interpreted by me (3pts min.). @ -Not done X-rays interpreted by me (1pt min.). @ -Not done CT interpreted by me (1pt min.). @ -Not done U/S interpreted by me (1pt. min.). @ -Not done What testing was considered but not performed or refused? (CT, X-rays, U/S, labs)? Why? @ -None What meds were considered but not given or refused? Why? @ -[None] Did you discuss the management of the patient with other professionals (professionals i.e. , PA, EXECUTIVE CHAIRMAN, lab, RT, psych nurse, social media marketer, sustainable systems analyst, teacher, hydrological technical officer, pillowcase cutter)? Give summary @ -The patient will be signed out to Dr. Madera Was smoking cessation discussed for >3mins.? @ -[No] Was critical care preformed (if so, how long)? @ -[No] Were there social determinants of health that impacted care today? How? (Homelessness, low income, unemployed, alcoholism, drug addiction, transportation, low edu. Level, literacy, decrease access to med. care, half-way, rehab)? @ -[No] Was there de-escalation of care discussed even if they declined (Discuss DNR or withdrawal of care, Hospice)? DNR status @ -[No] What co-morbidities impacted this encounter? (DM, HTN, Smoking, COPD, CAD, Cancer, CVA, ARF, Chemo, Hep., AIDS, mental health diagnosis, sleep apnea, morbid obesity)? @ -A. fib, recent watchman procedure on Plavix Was patient admitted / discharged? Hospital course, mention meds given and route, prescriptions, significant lab abnormalities, going to OR and other pertinent info. @ -Upon arrival patient was placed into room 10. History and physical was performed. Rectal exam was performed which demonstrates dark stool. Laboratory studies are ordered. Patient will be signed out to Dr. Madera for further management Undiagnosed new problem with uncertain prognosis? @ -No Drug Therapy requiring intensive monitoring for toxicity (Heparin, Nitro, Insulin, Cardizem)? @ -No Were any procedures done? @ -No Diagnosis/symptom? @ -acute GI bleed, recent watchman placement on plavix Acute, or Chronic, or Acute on Chronic? @ -acute, recurrent Uncomplicated (without systemic symptoms) or Complicated (systemic symptoms)? @ -complicated Side effects of treatment? @ -No Exacerbation, Progression, or Severe Exacerbation? @ -No Poses a threat to life or bodily function? How? (Chest pain, USA, AL, pneumonia, PE, COPD, DKA, ARF, appy, cholecystitis, CVA, Diverticulitis, Homicidal, Suicidal, threat to staff... and all critical care pts) @ -yes (Uyen Ibarra) I spoke with Dr. Chen he agreed to admit the patient to the patient wrote admitting orders (Delfino Madera) - Lab Data Lab Results 01/14/23 01/14/23 01/14/23 Range/Units 07:25 07:25 07:25 WBC 7.0 (3.8-10.6) k/uL RBC 4.64 (4.30-5.90) m/uL Hgb 11.3 L (13.0-17.5) gm/dL Hct 36.3 L (39.0-53.0) % MCV 78.2 L (80.0-100.0) fL MCH 24.4 L (25.0-35.0) pg MCHC 31.2 (31.0-37.0) g/dL RDW 18.7 H (11.5-15.5) % Plt Count 223 (150-450) k/uL MPV 7.4 Neutrophils % 68 % Lymphocytes % 21 % Monocytes % 7 % Eosinophils % 2 % Basophils % 1 % Neutrophils # 4.7 (1.3-7.7) k/uL Lymphocytes # 1.5 (1.0-4.8) k/uL Monocytes # 0.5 (0-1.0) k/uL Eosinophils # 0.1 (0-0.7) k/uL Basophils # 0.0 (0-0.2) k/uL Hypochromasia Marked Anisocytosis Slight Microcytosis Slight Sodium 137 (137-145) mmol/L Potassium 4.2 (3.5-5.1) mmol/L Chloride 97 L (98-107) mmol/L Carbon Dioxide 32 H (22-30) mmol/L Anion Gap 8 mmol/L BUN 29 H (9-20) mg/dL Creatinine 1.77 H (0.66-1.25) mg/dL Est GFR (CKD-EPI)AfAm 43 (>60 ml/min/1.73 sqM) Est GFR (CKD-EPI)NonAf 37 (>60 ml/min/1.73 sqM) Glucose 179 H (74-99) mg/dL Plasma Lactic Acid Carson (0.7-2.0) mmol/L Calcium 8.5 (8.4-10.2) mg/dL Magnesium 2.0 (1.6-2.3) mg/dL Total Bilirubin 0.5 (0.2-1.3) mg/dL AST 18 (17-59) U/L ALT 14 (4-49) U/L Alkaline Phosphatase 116 (38-126) U/L Total Protein 6.7 (6.3-8.2) g/dL Albumin 3.9 (3.5-5.0) g/dL Stool Occult Blood Positive (Negative) 01/14/23 Range/Units 07:25 WBC (3.8-10.6) k/uL RBC (4.30-5.90) m/uL Hgb (13.0-17.5) gm/dL Hct (39.0-53.0) % MCV (80.0-100.0) fL MCH (25.0-35.0) pg MCHC (31.0-37.0) g/dL RDW (11.5-15.5) % Plt Count (150-450) k/uL MPV Neutrophils % % Lymphocytes % % Monocytes % % Eosinophils % % Basophils % % Neutrophils # (1.3-7.7) k/uL Lymphocytes # (1.0-4.8) k/uL Monocytes # (0-1.0) k/uL Eosinophils # (0-0.7) k/uL Basophils # (0-0.2) k/uL Hypochromasia Anisocytosis Microcytosis Sodium (137-145) mmol/L Potassium (3.5-5.1) mmol/L Chloride (98-107) mmol/L Carbon Dioxide (22-30) mmol/L Anion Gap mmol/L BUN (9-20) mg/dL Creatinine (0.66-1.25) mg/dL Est GFR (CKD-EPI)AfAm (>60 ml/min/1.73 sqM) Est GFR (CKD-EPI)NonAf (>60 ml/min/1.73 sqM) Glucose (74-99) mg/dL Plasma Lactic Acid Carson 0.9 (0.7-2.0) mmol/L Calcium (8.4-10.2) mg/dL Magnesium (1.6-2.3) mg/dL Total Bilirubin (0.2-1.3) mg/dL AST (17-59) U/L ALT (4-49) U/L Alkaline Phosphatase (38-126) U/L Total Protein (6.3-8.2) g/dL Albumin (3.5-5.0) g/dL Stool Occult Blood (Negative) Disposition <Uyen Ibarra - Last Filed: 01/14/23 07:24> Time of Disposition: 08:21 <Delfino Madera - Last Filed: 01/14/23 08:21> Clinical Impression: GI bleed Disposition: ADMITTED IP TO THIS HOSP Referrals: Kristel Hall MD [Primary Care Provider] - 1-2 days
[2023-01-14 07:55] LABS: Anisocytosis Slight; Basophils % (A) 1 %; Eosinophils # (A) 0.1 k/uL (0-0.7); Eosinophils % (A) 2 %; HCT 36.3 % (39.0-53.0); HGB 11.3 gm/dL (13.0-17.5); Hypochromasia Marked; Lymphocytes # (A) 1.5 k/uL (1.0-4.8); Lymphocytes % (A) 21 %; MCH 24.4 pg (25.0-35.0); MCHC 31.2 g/dL (31.0-37.0); MCV 78.2 fL (80.0-100.0); Mean Platelet Volume 7.4; Microcytosis Slight; Monocytes # (A) 0.5 k/uL (0-1.0); Monocytes % (A) 7 %; Neutrophils # (A) 4.7 k/uL (1.3-7.7); Neutrophils % (A) 68 %; Platelet Count 223 k/uL (150-450); RBC 4.64 m/uL (4.30-5.90); RDW 18.7 % (11.5-15.5)
[2023-01-14 08:12] LABS: Albumin 3.9 g/dL (3.5-5.0); Calcium 8.5 mg/dL (8.4-10.2); Potassium 4.2 mmol/L (3.5-5.1); Total Bilirubin 0.5 mg/dL (0.2-1.3); Total Protein 6.7 g/dL (6.3-8.2)
[2023-01-14] MEDS ORDERED: SODIUM CHLORIDE 0.9% 1,000 ML IV ONE (08:45)
[2023-01-14 08:47] LABS: Partial Thromboplastin Time 22.6 sec (22.0-30.0); Prothrombin Time 10.7 sec (9.0-12.0)
[2023-01-14 09:54] LABS: Anisocytosis Slight; Basophils % (A) 0 %; Eosinophils # (A) 0.1 k/uL (0-0.7); Eosinophils % (A) 2 %; HCT 39.5 % (39.0-53.0); Hypochromasia Marked; Lymphocytes # (A) 1.6 k/uL (1.0-4.8); Lymphocytes % (A) 21 %; MCH 23.7 pg (25.0-35.0); MCHC 30.3 g/dL (31.0-37.0); MCV 78.4 fL (80.0-100.0); Mean Platelet Volume 7.2; Microcytosis Slight; Monocytes # (A) 0.5 k/uL (0-1.0); Monocytes % (A) 7 %; Neutrophils % (A) 68 %; Platelet Count 187 k/uL (150-450); RBC 5.04 m/uL (4.30-5.90); RDW 18.5 % (11.5-15.5); WBC 7.4 k/uL (3.8-10.6)
[2023-01-14] MEDS ORDERED: NITROGLYCERIN SL TABS 0.4 MG TAB SUBLINGUAL PRN (11:55)
[2023-01-14] MEDS ORDERED: SIMETHICONE 80 MG CHEWABLE PO PRN (11:55)
--- NOTE | 2023-01-14 12:02 | P.HPIM ---
History of Present Illness H&P Date: 01/14/23 Kevin Mcknight, is a 73-year-old male who presented to [facility] emergency room with a chief complaint of rectal bleeding, patient stated that since yesterday morning he had 4 bloody bowel movements He was evaluated in the emergency room vital examination on presentation reveale d a temperature of 97.8 pulse 64 respiration 18 blood pressure 144/64 pulse ox 98% on room air Laboratory data revealed a white blood count of 7.0 hemoglobin 11.3 platelet count 223 sodium 137 potassium 4.2 chloride 97 CO2 32 BUN 29 creatinine 1.77 stool for occult blood was positive Patient was admitted to medical floor for further evaluation and treatment Past medical history is significant for history of hypertension, hyperlipidemia, insulin-dependent diabetes mellitus, coronary artery disease, history of atrial fibrillation with watchman procedure done on Monday, prior to that patient was maintained on Eliquis, currently patient is maintained on aspirin and Plavix. On review of systems patient is alert and oriented 3 in no apparent distress there is no fever or chills no headache or dizziness no chest pain no shortness of breath no cough no nausea or vomiting no abdominal pain no diarrhea, no burning with urination no frequency or urgency and no hematuria, no weakness or numbness in any of the extremities no change in vision speech or gait. Past Medical History Past Medical History: Atrial Fibrillation, Coronary Artery Disease (CAD), Chest Pain / Angina, Heart Failure, Diabetes Mellitus, GERD/Reflux, GI Bleed, Hyperlipidemia, Hypertension, Myocardial Infarction (MA), Osteoarthritis (OA), Renal Disease, Vascular Disorder Additional Past Medical History / Comment(s): IDDN type II, CKD stage III, rectal bleed with anemia, PAD, caratid artery disease, chronic low back pain/bilateral hip pain, past r foot gout, benign colon polyps Last Myocardial Infarction Date:: 09/2016, 06/20/22 History of Any Multi-Drug Resistant Organisms: None Reported Past Surgical History: Cholecystectomy, Coronary Bypass/CABG, Heart Catheterization, Heart Catheterization With Stent, Orthopedic Surgery, Tonsillectomy Additional Past Surgical History / Comment(s): Multiple peripheral revascularization procedures/stents/arthrectomies/ballooning, multiple aortagrams with runoffs, JOIE, , 2005 CABG 3 vessel, EGD, colonoscopies/poly pectomies, cyst on back drained. Past Anesthesia/Blood Transfusion Reactions: No Reported Reaction Additional Past Anesthesia/Blood Transfusion Reaction / Comment(s): Pt has received blood in past without reaction. Date of Last Stent Placement:: 2013 Past Psychological History: No Psychological Hx Reported Smoking Status: Former smoker Past Alcohol Use History: None Reported Past Drug Use History: None Reported - Past Family History Father Family Medical History: Myocardial Infarction (MA) Additional Family Medical History / Comment(s): He had a MA in his 30s and had CABG in his 50s. Mother Family Medical History: Pulmonary Embolus Medications and Allergies Home Medications Medication Instructions Recorded Confirmed Type allopurinoL [Zyloprim] 100 mg PO DAILY 03/16/15 01/14/23 History Nitroglycerin Sl Tabs [Nitrostat] 0.4 mg SL Q5M PRN 05/12/16 01/14/23 History Montelukast [Singulair] 10 mg PO DAILY 08/31/17 01/14/23 History Ranolazine [Ranexa] 500 mg PO BID 08/31/17 01/14/23 History Pravastatin Sodium 80 mg PO HS 01/15/19 01/14/23 History Empagliflozin [Jardiance] 12.5 mg PO DAILY 08/04/21 01/14/23 History Cholecalciferol (Vitamin D3) 125 mcg PO HS 02/10/22 01/14/23 History [Vitamin D3 (125 MCG = 5,000 IU)] Magnesium Oxide [Magnesium] 1,000 mg PO DAILY@1200 02/10/22 01/14/23 History Metoprolol Succinate (ER) [Toprol 100 mg PO BID 02/10/22 01/14/23 History XL] Pantoprazole [Protonix] 40 mg PO BID 02/10/22 01/14/23 History Aspirin EC [Ecotrin Low Dose] 81 mg PO Q48H 06/20/22 01/14/23 History Simethicone [Gas-X] 125 mg PO QID PRN 10/18/22 01/14/23 History Cyanocobalamin [Vitamin B-12 1,000 mcg SQ Q60D 10/19/22 01/14/23 History Injection] Clopidogrel [Plavix] 75 mg PO DAILY 01/14/23 01/14/23 History Furosemide [Lasix] 20 mg PO HS 05/20/23 05/20/23 History Furosemide [Lasix] 40 mg PO DAILY 01/14/23 01/14/23 History Insulin NPH Human Isophane 64 units SQ DAILY 01/14/23 01/14/23 History [Novolin N] Allergies Allergy/AdvReac Type Severity Reaction Status Date / Time Sulfa (Sulfonamide Allergy Rash/Hives Verified 01/14/23 10:48 Antibiotics) sulfamethoxazole Allergy Rash/Hives Verified 01/14/23 10:48 [From Bactrim] trimethoprim [From Bactrim] Allergy Rash/Hives Verified 01/14/23 10:48 Physical Exam Vitals: Vital Signs Temp Pulse Resp BP Pulse Ox 01/14/23 09:30 62 18 148/66 96 01/14/23 05:11 97.8 F 64 18 144/64 98 Intake and Output 01/13/23 01/14/23 01/14/23 22:59 06:59 14:59 Other: Weight 117.934 kg In general patient is alert and oriented x 3 in no distress HEENT head normocephalic and atraumatic Neck is supple no JVD no goiter no lymphadenopathy no carotid bruit Chest examination is clear to auscultation no crackles no wheezing Cardiac exam reveals regular heart sounds S1 and S2 no gallops no murmurs Abdomen is soft nontender no organomegaly with normal bowel sounds Extremity exam reveals no edema no cyanosis or clubbing Neurological examination reveals no gross focal deficits Results CBC & Chem 7: 01/14/23 09:30 01/14/23 07:25 Labs: Abnormal Lab Results - Last 24 Hours (Table) 01/14/23 01/14/23 01/14/23 Range/Units 07:25 07:25 09:30 Hgb 11.3 L 12.0 L (13.0-17.5) gm/dL Hct 36.3 L (39.0-53.0) % MCV 78.2 L 78.4 L (80.0-100.0) fL MCH 24.4 L 23.7 L (25.0-35.0) pg MCHC 30.3 L (31.0-37.0) g/dL RDW 18.7 H 18.5 H (11.5-15.5) % Chloride 97 L (98-107) mmol/L Carbon Dioxide 32 H (22-30) mmol/L BUN 29 H (9-20) mg/dL Creatinine 1.77 H (0.66-1.25) mg/dL Glucose 179 H (74-99) mg/dL Assessment and Plan Plan: Recurrent episodes of rectal bleeding, started Monday morning History of atrial fibrillation with recent watchman procedure, patient is maintained on aspirin and Plavix at this time Underlying history of hypertension Underlying history of hyperlipidemia Underlying history of coronary artery disease Underlying history of insulin-dependent diabetes mellitus Underlying history of gastroesophageal reflux disease Underlying history of gout Underlying history of chronic kidney disease stage III At this time patient will be admitted to medical floor Will monitor CBC closely, transfuse red blood cells if hemoglobin below 7 Consultation for general surgery was initiated for evaluation of rectal bleeding Consultation for cardiology was initiated to assess antiplatelet medications Will follow closely with
[2023-01-14] MEDS ORDERED: CYANOCOBALAMIN 1,000 MCG/ML 1 ML VIAL SQ SCH (13:00)
[2023-01-14] MEDS: INSULIN NPH 100 UNIT/ML 10 ML VIAL SQ SCH (13:07)
[2023-01-14] MEDS: allopurinoL 100 MG TAB PO SCH (13:20)
[2023-01-14] MEDS: CLOPIDOGREL 75 MG TAB PO SCH (13:30)
[2023-01-14] MEDS: MAGNESIUM OXIDE 400 MG TAB PO SCH (13:30)
[2023-01-14] MEDS: MONTELUKAST 10 MG TAB PO SCH (13:30)
[2023-01-14] MEDS: DAPAGLIFLOZIN PROPANEDIOL 5 MG TABLET PO SCH (13:30)
[2023-01-14] MEDS: FUROSEMIDE 40 MG TAB PO SCH (13:30)
[2023-01-14 16:27] LABS: Glucose,Whole Blood 124 mg/dL (70-110)
[2023-01-14 16:56] LABS: Anisocytosis Slight; Basophils % (A) 1 %; Eosinophils # (A) 0.1 k/uL (0-0.7); Eosinophils % (A) 2 %; HCT 39.8 % (39.0-53.0); Hypochromasia Marked; Lymphocytes # (A) 1.8 k/uL (1.0-4.8); Lymphocytes % (A) 27 %; MCH 23.9 pg (25.0-35.0); MCHC 30.2 g/dL (31.0-37.0); MCV 79.1 fL (80.0-100.0); Mean Platelet Volume 7.3; Microcytosis Slight; Monocytes # (A) 0.5 k/uL (0-1.0); Monocytes % (A) 7 %; Neutrophils # (A) 4.3 k/uL (1.3-7.7); Neutrophils % (A) 62 %; Platelet Count 262 k/uL (150-450); RBC 5.02 m/uL (4.30-5.90); RDW 18.8 % (11.5-15.5)
[2023-01-14] MEDS: PANTOPRAZOLE 40 MG TABLET PO SCH (18:04)
[2023-01-14] MEDS: CHOLECALCIFEROL 25 MCG (1000 IU) TABLET PO SCH (20:47)
[2023-01-14] MEDS: FUROSEMIDE 20 MG TAB PO SCH (20:47)
[2023-01-14] MEDS: METOPROLOL SUCCINATE (ER) 50 MG TAB.ER.24H PO SCH (20:47)
[2023-01-14 21:14] LABS: Anisocytosis Slight; Basophils % (A) 1 %; Eosinophils # (A) 0.1 k/uL (0-0.7); Eosinophils % (A) 2 %; HCT 39.9 % (39.0-53.0); HGB 11.7 gm/dL (13.0-17.5); Hypochromasia Marked; Lymphocytes % (A) 25 %; MCH 23.6 pg (25.0-35.0); MCHC 29.4 g/dL (31.0-37.0); MCV 80.4 fL (80.0-100.0); Mean Platelet Volume 7.9; Microcytosis Slight; Monocytes # (A) 0.5 k/uL (0-1.0); Monocytes % (A) 7 %; Neutrophils # (A) 5.2 k/uL (1.3-7.7); Neutrophils % (A) 64 %; Platelet Count 262 k/uL (150-450); RBC 4.96 m/uL (4.30-5.90); RDW 18.7 % (11.5-15.5); WBC 8.2 k/uL (3.8-10.6)
[2023-01-14] MEDS: PRAVASTATIN SODIUM 80 MG TAB PO SCH (21:19)
[2023-01-14] MEDS: RANOLAZINE 500 MG TAB.ER.12H PO SCH (21:19)
[2023-01-15 06:02] LABS: Glucose,Whole Blood 175 mg/dL (70-110)
[2023-01-15] MEDS: PANTOPRAZOLE 40 MG TABLET PO SCH ×2 (06:14→18:06)
[2023-01-15] MEDS: MAGNESIUM OXIDE 400 MG TAB PO SCH (08:11)
[2023-01-15] MEDS: FUROSEMIDE 40 MG TAB PO SCH (08:11)
[2023-01-15] MEDS: METOPROLOL SUCCINATE (ER) 50 MG TAB.ER.24H PO SCH ×2 (08:11→20:47)
[2023-01-15] MEDS: INSULIN NPH 100 UNIT/ML 10 ML VIAL SQ SCH (08:11)
[2023-01-15] MEDS: DAPAGLIFLOZIN PROPANEDIOL 5 MG TABLET PO SCH (08:11)
[2023-01-15] MEDS: MONTELUKAST 10 MG TAB PO SCH (08:11)
[2023-01-15] MEDS: RANOLAZINE 500 MG TAB.ER.12H PO SCH ×2 (08:11→20:47)
[2023-01-15] MEDS: allopurinoL 100 MG TAB PO SCH (08:11)
[2023-01-15] MEDS ORDERED: ASPIRIN 81 MG PO SCH (09:00)
[2023-01-15 10:06] LABS: Anisocytosis Slight; Basophils % (A) 1 %; Eosinophils # (A) 0.1 k/uL (0-0.7); Eosinophils % (A) 2 %; HCT 40.8 % (39.0-53.0); HGB 12.2 gm/dL (13.0-17.5); Hypochromasia Marked; Lymphocytes # (A) 1.5 k/uL (1.0-4.8); Lymphocytes % (A) 23 %; MCHC 29.9 g/dL (31.0-37.0); MCV 80.1 fL (80.0-100.0); Mean Platelet Volume 8.5; Microcytosis Slight; Monocytes # (A) 0.5 k/uL (0-1.0); Monocytes % (A) 7 %; Neutrophils # (A) 4.3 k/uL (1.3-7.7); Neutrophils % (A) 66 %; Platelet Count 251 k/uL (150-450); RBC 5.09 m/uL (4.30-5.90); RDW 18.5 % (11.5-15.5); WBC 6.5 k/uL (3.8-10.6)
--- NOTE | 2023-01-15 10:28 | P.GSCN ---
History of Present Illness Consult date: 01/15/23 Reason for Consult: GI bleeding History of present illness: 73-year-old male comes to the hospital with complaints of bloody stools. He had 3 episodes of red rectal bleeding. Patient describes a history of previous gastritis seen on EGD in October and also diverticulosis. Patient states he had upper and lower endoscopy last admission. I only see that a EGD was performed. Patient has been on eloquis in the past. He had a watchman procedure done 1 week ago. He was started on Plavix after that. After seeing the bleeding he stopped his Plavix. Denies abdominal pain. No nausea or vomiting. No melanotic stools. Looking back it appears he had a colonoscopy in November 2021 that showed colon polyps. He apparently had a capsule endoscopy as well in the past. Review of Systems The patient denies any acute changes in vision or hearing, no dysphagia or odynophagia, no chest pain or shortness of breath, no dysuria or hematuria, no headache, no runny nose, no melena, no unexplained weight loss Past Medical History Past Medical History: Atrial Fibrillation, Coronary Artery Disease (CAD), Chest Pain / Angina, Heart Failure, Diabetes Mellitus, GERD/Reflux, GI Bleed, Hyperlipidemia, Hypertension, Myocardial Infarction (ID), Osteoarthritis (OA), Renal Disease, Vascular Disorder Additional Past Medical History / Comment(s): IDDN type II, CKD stage III, rectal bleed with anemia, PAD, caratid artery disease, chronic low back pain/bilateral hip pain, past r foot gout, benign colon polyps Last Myocardial Infarction Date:: 09/2016, 06/20/22 History of Any Multi-Drug Resistant Organisms: None Reported Past Surgical History: Cholecystectomy, Coronary Bypass/CABG, Heart Catheterization, Heart Catheterization With Stent, Orthopedic Surgery, Tonsillectomy Additional Past Surgical History / Comment(s): Multiple peripheral revascularization procedures/stents/arthrectomies/ballooning, multiple aortagrams with runoffs, JOIE, , 2006 CABG 3 vessel, EGD, colonoscopies/polypectomies, cyst on back drained. Past Anesthesia/Blood Transfusion Reactions: No Reported Reaction Additional Past Anesthesia/Blood Transfusion Reaction / Comm: Pt has received blood in past without reaction. Date of Last Stent Placement:: 2013 Past Psychological History: No Psychological Hx Reported Additional Psychological History / Comment(s): Pt resides with his spouse and is independent. Smoking Status: Former smoker Past Alcohol Use History: None Reported Additional Past Alcohol Use History / Comment(s): Started smoking about 1966, 2 PPD, quit in 2005. Past Drug Use History: None Reported - Past Family History Father Family Medical History: Myocardial Infarction (ID) Additional Family Medical History / Comment(s): He had a ID in his 30s and had CABG in his 50s. Mother Family Medical History: Pulmonary Embolus Medications and Allergies Home Medications Medication Instructions Recorded Confirmed Type allopurinoL [Zyloprim] 100 mg PO DAILY 03/16/15 01/14/23 History Nitroglycerin Sl Tabs [Nitrostat] 0.4 mg SL Q5M PRN 05/12/16 01/14/23 History Montelukast [Singulair] 10 mg PO DAILY 08/31/17 01/14/23 History Ranolazine [Ranexa] 500 mg PO BID 08/31/17 01/14/23 History Pravastatin Sodium 80 mg PO HS 01/15/19 01/14/23 History Empagliflozin [Jardiance] 12.5 mg PO DAILY 08/04/21 01/14/23 History Cholecalciferol (Vitamin D3) 125 mcg PO HS 02/10/22 01/14/23 History [Vitamin D3 (125 MCG = 5,000 IU)] Magnesium Oxide [Magnesium] 1,000 mg PO DAILY@1200 02/10/22 01/14/23 History Metoprolol Succinate (ER) [Toprol 100 mg PO BID 02/10/22 01/14/23 History XL] Pantoprazole [Protonix] 40 mg PO BID 02/10/22 01/14/23 History Aspirin EC [Ecotrin Low Dose] 81 mg PO Q48H 06/20/22 01/14/23 History Simethicone [Gas-X] 125 mg PO QID PRN 10/18/22 01/14/23 History Cyanocobalamin [Vitamin B-12 1,000 mcg SQ Q60D 10/19/22 01/14/23 History Injection] Clopidogrel [Plavix] 75 mg PO DAILY 01/14/23 01/14/23 History Furosemide [Lasix] 20 mg PO HS 01/14/23 01/14/23 History Furosemide [Lasix] 40 mg PO DAILY 01/14/23 01/14/23 History Insulin NPH Human Isophane 64 units SQ DAILY 01/14/23 01/14/23 History [Novolin N] Allergies Allergy/AdvReac Type Severity Reaction Status Date / Time Sulfa (Sulfonamide Allergy Rash/Hives Verified 01/14/23 10:48 Antibiotics) sulfamethoxazole Allergy Rash/Hives Verified 01/14/23 10:48 [From Bactrim] trimethoprim [From Bactrim] Allergy Rash/Hives Verified 01/14/23 10:48 Surgical - Exam Vital Signs Temp Pulse Resp BP Pulse Ox 97.8 F 64 18 144/64 98 01/14/23 05:11 01/14/23 05:11 01/14/23 05:11 01/14/23 05:11 01/14/23 05:11 Physical exam: General: Well-developed, well-nourished HEENT: Normocephalic, sclerae nonicteric Abdomen: Nontender, nondistended Extremities: No edema Neuro: Alert and oriented Results - Labs 01/15/23 09:48 01/14/23 07:25 Abnormal Lab Results - Last 24 Hours (Table) 01/14/23 01/14/23 01/14/23 Range/Units 16:25 16:35 20:33 Hgb 12.0 L 11.7 L (13.0-17.5) gm/dL MCV 79.1 L (80.0-100.0) fL MCH 23.9 L 23.6 L (25.0-35.0) pg MCHC 30.2 L 29.4 L (31.0-37.0) g/dL RDW 18.8 H 18.7 H (11.5-15.5) % POC Glucose (mg/dL) 124 H (70-110) mg/dL 01/15/23 01/15/23 Range/Units 06:01 09:48 Hgb 12.2 L (13.0-17.5) gm/dL MCV (80.0-100.0) fL MCH 24.0 L (25.0-35.0) pg MCHC 29.9 L (31.0-37.0) g/dL RDW 18.5 H (11.5-15.5) % POC Glucose (mg/dL) 175 H (70-110) mg/dL Assessment and Plan (1) GI bleed Narrative/Plan: 73-year-old male with recurrent GI bleed. Patient stopped his Plavix on his own. Await cardiology evaluation. Continue liquid diet. Follow hemoglobin. Current Visit: Yes Status: Acute Code(s): K92.2 - GASTROINTESTINAL HEMORRHAGE, UNSPECIFIED SNOMED Code(s): 50315712
[2023-01-15 10:29] LABS: ALT 16 U/L (4-49); AST 18 U/L (17-59); African American GFR (CKD) 43 (>60 ml/min/1.73 sqM); Albumin 4.1 g/dL (3.5-5.0); Albumin/Globulin Ratio 1.5; Alkaline Phosphatase 107 U/L (38-126); Anion Gap 6 mmol/L; Blood Urea Nitrogen 24 mg/dL (9-20); Calcium 8.9 mg/dL (8.4-10.2); Carbon Dioxide 35 mmol/L (22-30); Chloride 93 mmol/L (98-107); Globulin 2.8 g/dL; Glucose 271 mg/dL (74-99); Non-African American GFR(CKD) 37 (>60 ml/min/1.73 sqM); Potassium 4.2 mmol/L (3.5-5.1); Sodium 134 mmol/L (137-145); Total Bilirubin 0.6 mg/dL (0.2-1.3); Total Protein 6.9 g/dL (6.3-8.2)
[2023-01-15] MEDS: CLOPIDOGREL 75 MG TAB PO SCH (10:40)
--- NOTE | 2023-01-15 10:40 | P.PN ---
Subjective Progress Note Date: 01/15/23 Kevin Mcknight, is a 73-year-old male who presented to [facility] emergency room with a chief complaint of rectal bleeding, patient stated that since yesterday morning he had 4 bloody bowel movements He was evaluated in the emergency room vital examination on presentation revealed a temperature of 97.8 pulse 64 respiration 18 blood pressure 144/64 pulse ox 98% on room air Laboratory data revealed a white blood count of 7.0 hemoglobin 11.3 platelet count 223 sodium 137 potassium 4.2 chloride 97 CO2 32 BUN 29 creatinine 1.77 stool for occult blood was positive Patient was admitted to medical floor for further evaluation and treatment Past medical history is significant for history of hypertension, hyperlipidemia, insulin-dependent diabetes mellitus, coronary artery disease, history of atrial fibrillation with watchman procedure done on Monday, prior to that patient was maintained on Eliquis, currently patient is maintained on aspirin and Plavix. On review of systems patient is alert and oriented 3 in no apparent distress there is no fever or chills no headache or dizziness no chest pain no shortness of breath no cough no nausea or vomiting no abdominal pain no diarrhea, no burning with urination no frequency or urgency and no hematuria, no weakness or numbness in any of the extremities no change in vision speech or gait. On 01/15/2023 patient was seen and examined on the medical floor he is alert and oriented 3 in no apparent distress, he continues to have episodes of bloody bowel movements, otherwise he denies any complaints there is no fever or chills no headache or dizziness no chest pain no shortness of breath no cough no nausea or vomiting no abdominal pain no diarrhea no burning with urination no frequency or urgency and no hematuria. At this time we are still awaiting evaluation by general surgery, and there are still awaiting opinion by cardiology in regard to use of dual antiplatelet therapy. Will follow closely. Objective - Vital Signs Vital signs: Vital Signs Temp 97.4 F L 01/15/23 06:58 Pulse 60 01/15/23 06:58 Resp 16 01/15/23 06:58 BP 143/77 01/15/23 06:58 Pulse Ox 95 01/15/23 06:58 FiO2 Intake & Output 01/14/23 01/15/23 01/15/23 18:59 06:59 18:59 Weight 117.934 kg Other: # Voids 2 2 # Bowel Movements 1 - Exam In general patient is alert and oriented x 3 in no distress HEENT head normocephalic and atraumatic Neck is supple no JVD no goiter no lymphadenopathy no carotid bruit Chest examination is clear to auscultation no crackles no wheezing Cardiac exam reveals regular heart sounds S1 and S2 no gallops no murmurs Abdomen is soft nontender no organomegaly with normal bowel sounds Extremity exam reveals no edema no cyanosis or clubbing Neurological examination reveals no gross focal deficits - Labs CBC & Chem 7: 01/14/23 20:33 01/14/23 07:25 Labs: Abnormal Lab Results - Last 24 Hours (Table) 01/14/23 01/14/23 01/14/23 Range/Units 09:30 16:25 16:35 Hgb 12.0 L 12.0 L (13.0-17.5) gm/dL MCV 78.4 L 79.1 L (80.0-100.0) fL MCH 23.7 L 23.9 L (25.0-35.0) pg MCHC 30.3 L 30.2 L (31.0-37.0) g/dL RDW 18.5 H 18.8 H (11.5-15.5) % POC Glucose (mg/dL) 124 H (70-110) mg/dL 01/14/23 01/15/23 Range/Units 20:33 06:01 Hgb 11.7 L (13.0-17.5) gm/dL MCV (80.0-100.0) fL MCH 23.6 L (25.0-35.0) pg MCHC 29.4 L (31.0-37.0) g/dL RDW 18.7 H (11.5-15.5) % POC Glucose (mg/dL) 175 H (70-110) mg/dL Assessment and Plan Plan: Recurrent episodes of rectal bleeding, started Monday morning History of atrial fibrillation with recent watchman procedure, patient is maintained on aspirin and Plavix at this time Underlying history of hypertension Underlying history of hyperlipidemia Underlying history of coronary artery disease Underlying history of insulin-dependent diabetes mellitus Underlying history of gastroesophageal reflux disease Underlying history of gout Underlying history of chronic kidney disease stage III At this time patient will be admitted to medical floor Will monitor CBC closely, transfuse red blood cells if hemoglobin below 7 Consultation for general surgery was initiated for evaluation of rectal bleeding Consultation for cardiology was initiated to assess antiplatelet medications Will follow closely with
[2023-01-15 11:35] LABS: Glucose,Whole Blood 207 mg/dL (70-110)
--- NOTE | 2023-01-15 13:27 | CONS ---
CONSULTATION CHIEF COMPLAINT: GI bleed. HISTORY OF PRESENT ILLNESS: This is a 73-year-old gentleman with history of coronary artery disease, status post bypass surgery, ischemic cardiomyopathy, hypertension, dyslipidemia, peripheral arterial disease, status post prior intervention, chronic renal failure and paroxysmal atrial fibrillation with recurrent bleed, who underwent Watchman procedure a week ago at [facility] and is admitted to hospital complaining of rectal bleeding. The patient has had 4 bloody bowel movements and hemoglobin was 11.3. The patient is currently on aspirin, Plavix because of the recent Watchman. He was advised to take Plavix for at least 6 months. Hemoglobin is actually normal at 12.2 today. As long as the patient's hemoglobin is stable and he is not having active GI bleed, and is able to tolerate aspirin and Plavix, he should continue with that. If not, we will have to stop. PAST MEDICAL HISTORY: Significant for paroxysmal atrial fibrillation, coronary artery disease status post CABG, peripheral arterial disease status post prior revascularization, diabetes and dyslipidemia. CURRENT MEDICATIONS: Include, 1. Lasix 20 mg daily. 2. Plavix 75 mg daily. 3. Insulin. 4. Ranexa. 5. Protonix. 6. Singulair. 7. Toprol. 8. Jardiance. ALLERGIES: The patient is allergic to Bactrim. FAMILY HISTORY: Negative for premature coronary artery disease. SOCIAL HISTORY: Negative for smoking, EtOH abuse or drug abuse. REVIEW OF SYSTEMS: A review of systems has been performed. Pertinent are as documented. PHYSICAL EXAMINATION: GENERAL: The patient is comfortable at rest. VITAL SIGNS: Stable. NECK: There is no jugular venous distention. CHEST: Reveals good air entry bilaterally. HEART: Reveals first and second heart sounds. No gallop. No murmur. ABDOMEN: Soft. MUSCULOSKELETAL: Exam of extremities did not reveal any edema. Peripheral pulses are felt. LABORATORY DATA: Labs showed that the hemoglobin is stable at 12.2, potassium is 4.2, BUN is 24, creatinine is 1.78. His baseline creatinine is around 2. ASSESSMENT AND PLAN: 1. Paroxysmal atrial fibrillation. 2. Coronary artery disease, status post coronary artery bypass grafting. 3. Peripheral arterial disease. 4. History of recurrent gastrointestinal bleed, status post Watchman procedure. The patient just had a Watchman done a week ago. Continue with the aspirin and Plavix. If the patient has further episodes of gastrointestinal bleed, especially if he requires blood transfusion, we may have to hold the aspirin initially and then Plavix if necessary, but at the moment, hemoglobin is very stable. He is not having any active gastrointestinal bleed. I do not see the need to hold the aspirin and Plavix. CONY / CB: [id number] /
[2023-01-15 16:35] LABS: Glucose,Whole Blood 145 mg/dL (70-110)
[2023-01-15 20:01] LABS: Glucose,Whole Blood 186 mg/dL (70-110)
[2023-01-15] MEDS: FUROSEMIDE 20 MG TAB PO SCH (20:47)
[2023-01-15] MEDS: CHOLECALCIFEROL 25 MCG (1000 IU) TABLET PO SCH (20:47)
[2023-01-15] MEDS: PRAVASTATIN SODIUM 80 MG TAB PO SCH (20:47)
[2023-01-16 05:39] LABS: Glucose,Whole Blood 197 mg/dL (70-110)
[2023-01-16] MEDS: PANTOPRAZOLE 40 MG TABLET PO SCH ×2 (06:14→17:15)
[2023-01-16] MEDS: INSULIN NPH 100 UNIT/ML 10 ML VIAL SQ SCH (08:21)
[2023-01-16] MEDS: DAPAGLIFLOZIN PROPANEDIOL 5 MG TABLET PO SCH (08:22)
[2023-01-16] MEDS: CLOPIDOGREL 75 MG TAB PO SCH (08:22)
[2023-01-16] MEDS: FUROSEMIDE 40 MG TAB PO SCH (08:22)
[2023-01-16] MEDS: allopurinoL 100 MG TAB PO SCH (08:22)
[2023-01-16] MEDS: MONTELUKAST 10 MG TAB PO SCH (08:22)
[2023-01-16] MEDS: RANOLAZINE 500 MG TAB.ER.12H PO SCH ×2 (08:22→19:59)
[2023-01-16] MEDS: METOPROLOL SUCCINATE (ER) 50 MG TAB.ER.24H PO SCH ×2 (08:22→19:59)
[2023-01-16 08:42] LABS: Basophils # (A) 0.04 X 10*3/uL (0.00-0.10); Basophils % (A) 0.5 %; Eosinophils # (A) 0.13 X 10*3/uL (0.04-0.35); Eosinophils % (A) 1.6 %; HCT 40.5 % (39.6-50.0); HGB 11.5 g/dL (13.0-17.0); Immature Grans, Automated 0.3 %; Lymphocytes # (A) 1.89 X 10*3/uL (0.90-5.00); Lymphocytes % (A) 23.7 %; MCH 22.8 pg (27.0-32.0); MCHC 28.4 g/dL (32.0-37.0); MCV 80.2 fL (80.0-97.0); Mean Platelet Volume 9.2 fL (9.5-12.2); Monocytes # (A) 0.81 X 10*3/uL (0.20-1.00); Monocytes % (A) 10.2 %; NRBC Per 100 WBC 0 /100 WBCS (0.0-0.0); Neutrophils # (A) 5.09 X 10*3/uL (1.80-7.70); Neutrophils % (A) 63.7 %; Platelet Count 288 X 10*3/uL (140-440); RBC 5.05 X 10*6/uL (4.40-5.60); RDW 19.6 % (11.5-14.5); WBC 7.98 X 10*3/uL (4.50-10.00)
[2023-01-16 09:17] LABS: Albumin 4.2 g/dL (3.8-4.9); Albumin/Globulin Ratio 1.56 (1.60-3.17); Anion Gap 13.7 mmol/L (10.00-18.00); Blood Urea Nitrogen 23.8 mg/dL (9.0-27.0); Calcium 9.8 mg/dL (8.7-10.3); Carbon Dioxide 27.3 mmol/L (20.0-27.5); Globulin 2.7 g/dL (1.6-3.3); Non-African American GFR(CKD) 38.9 (60.0-200.0); Potassium 4.3 mmol/L (3.5-5.5); Total Bilirubin 0.4 mg/dL (0.30-1.20); Total Protein 6.9 g/dL (6.2-8.2)
[2023-01-16 11:01] LABS: Glucose,Whole Blood 290 mg/dL (70-110)
--- NOTE | 2023-01-16 11:39 | P.PN ---
Subjective Progress Note Date: 01/16/23 HISTORY OF PRESENT ILLNESS: This is a 73-year-old male who follows in the office with Dr. Hendricks. Patient has a history of coronary artery disease with previous CABG, ischemic cardiom yopathy, hypertension, hyperlipidemia, peripheral arterial disease, chronic kidney disease and paroxysmal atrial fibrillation. The patient recently underwent watchman procedure proximally one week ago. He is admitted to the hospital secondary to rectal bleeding. Patient's hemoglobin remained stable. Hemoglobin 11.5 today. He remains on aspirin and Plavix. PHYSICAL EXAM: VITAL SIGNS: Reviewed. GENERAL: Well-developed in no acute distress. NECK: Supple. No JVD or thyromegaly LUNGS: Respirations even and unlabored. Lungs essentially clear to auscultation bilaterally. HEART: Regular rate and rhythm. S1 and S2 heard. EXTREMITIES: Normal range of motion. No clubbing or cyanosis. Peripheral pulses intact. No lower extremity edema ASSESSMENT: Rectal bleeding Paroxysmal atrial fibrillation, status post recent watchman procedure Coronary artery disease with previous CABG Peripheral arterial disease Ischemic cardiomyopathy Hypertension Hyperlipidemia Chronic kidney disease PLAN: Continue current cardiac medications Continue with aspirin and Plavix at this time. Recommend continuing dual antiplatelet therapy for 3 months post watchman device. Then may continue with Plavix alone Continue to monitor hemoglobin. General surgery following. We will sign off. Please reconsult if needed. Nurse practitioner note has been reviewed by physician. Signing provider agrees with the documented findings, assessment, and plan of care. Objective - Vital Signs Vital signs: Vital Signs Temp 97.9 F 01/16/23 07:09 Pulse 59 L 01/16/23 08:00 Resp 17 01/16/23 08:00 BP 129/69 01/16/23 07:09 Pulse Ox 95 01/16/23 07:09 FiO2 Intake & Output 01/15/23 01/16/23 01/16/23 18:59 06:59 18:59 Other: # Voids 5 1 # Bowel Movements 2 - Labs CBC & Chem 7: 01/17/23 05:12 01/17/23 05:12 Labs: Abnormal Lab Results - Last 24 Hours (Table) 01/15/23 01/15/23 01/16/23 Range/Units 16:34 19:59 05:22 Hgb 11.5 L (13.0-17.0) g/dL MCH 22.8 L (27.0-32.0) pg MCHC 28.4 L (32.0-37.0) g/dL RDW 19.6 H (11.5-14.5) % MPV 9.2 L (9.5-12.2) fL Creatinine (0.6-1.5) mg/dL Est GFR (CKD-EPI)AfAm (60.0-200.0) Est GFR (CKD-EPI)NonAf (60.0-200.0) Glucose (70-110) mg/dL POC Glucose (mg/dL) 145 H 186 H (70-110) mg/dL Albumin/Globulin Ratio (1.60-3.17) g/dL 01/16/23 01/16/23 01/16/23 Range/Units 05:22 05:38 10:59 Hgb (13.0-17.0) g/dL MCH (27.0-32.0) pg MCHC (32.0-37.0) g/dL RDW (11.5-14.5) % MPV (9.5-12.2) fL Creatinine 1.7 H (0.6-1.5) mg/dL Est GFR (CKD-EPI)AfAm 45.0 L (60.0-200.0) Est GFR (CKD-EPI)NonAf 38.9 L (60.0-200.0) Glucose 182 H (70-110) mg/dL POC Glucose (mg/dL) 197 H 290 H (70-110) mg/dL Albumin/Globulin Ratio 1.56 L (1.60-3.17) g/dL
[2023-01-16] MEDS: MAGNESIUM OXIDE 400 MG TAB PO SCH (12:09)
--- NOTE | 2023-01-16 13:22 | P.PN ---
Subjective Progress Note Date: 01/16/23 CHIEF COMPLAINT: GI bleeding HISTORY OF PRESENT ILLNESS: Patient has had no further bleeding from rectum. He has been restarted on his aspirin and Plavix. Hemoglobin stable at 11.5. Denies any abdominal pain. He denies any nausea vomiting. Tolerating regular diet. Last EGD and colonoscopy was in November 2022 that showed evidence of gastritis and diverticulosis. He had a capsule endoscopy a few years ago that was negative. Atrial fibrillation status post recent watchman procedure. Cardiology recommending aspirin and Plavix for at least 3 months post watchman procedure. PHYSICAL EXAM: VITAL SIGNS: Reviewed. GENERAL: Well-developed in no acute distress. HEENT: No sclera icterus. Extraocular movements grossly intact. Moist buccal mucosa. Head is atraumatic, normocephalic. ABDOMEN: Soft. Nondistended. Nontender. NEUROLOGIC: Alert and oriented. Cranial nerves II through XII grossly intact. ASSESSMENT: 1. Recurrent GI bleed now resolved PLAN: -No plans for endoscopies this time -Continue monitor for any signs or symptoms of bleeding while on anticoagulants Physician Bakery Assistant note has been reviewed by physician. Signing provider agrees with the documented findings, assessment, and plan of care. Objective - Vital Signs Vital signs: Vital Signs Temp 97.9 F 01/16/23 07:09 Pulse 59 L 01/16/23 08:00 Resp 17 01/16/23 08:00 BP 129/69 01/16/23 07:09 Pulse Ox 95 01/16/23 07:09 FiO2 Intake & Output 01/15/23 01/16/23 01/16/23 18:59 06:59 18:59 Other: # Voids 5 1 # Bowel Movements 2 - Labs CBC & Chem 7: 01/16/23 05:22 01/16/23 05:22 Labs: Abnormal Lab Results - Last 24 Hours (Table) 01/15/23 01/15/23 01/16/23 Range/Units 16:34 19:59 05:22 Hgb 11.5 L (13.0-17.0) g/dL MCH 22.8 L (27.0-32.0) pg MCHC 28.4 L (32.0-37.0) g/dL RDW 19.6 H (11.5-14.5) % MPV 9.2 L (9.5-12.2) fL Creatinine (0.6-1.5) mg/dL Est GFR (CKD-EPI)AfAm (60.0-200.0) Est GFR (CKD-EPI)NonAf (60.0-200.0) Glucose (70-110) mg/dL POC Glucose (mg/dL) 145 H 186 H (70-110) mg/dL Albumin/Globulin Ratio (1.60-3.17) g/dL 01/16/23 01/16/23 01/16/23 Range/Units 05:22 05:38 10:59 Hgb (13.0-17.0) g/dL MCH (27.0-32.0) pg MCHC (32.0-37.0) g/dL RDW (11.5-14.5) % MPV (9.5-12.2) fL Creatinine 1.7 H (0.6-1.5) mg/dL Est GFR (CKD-EPI)AfAm 45.0 L (60.0-200.0) Est GFR (CKD-EPI)NonAf 38.9 L (60.0-200.0) Glucose 182 H (70-110) mg/dL POC Glucose (mg/dL) 197 H 290 H (70-110) mg/dL Albumin/Globulin Ratio 1.56 L (1.60-3.17) g/dL
--- NOTE | 2023-01-16 13:36 | CDI ---
Documentation Clarification Form Date: 01/16/2023 1:17:19 PM From: Magnolia Paz RN, CCDS Email: [email or web address] Admit Date: 01/14/2023 8:48:00 AM Patient Name: Kevin Mcknight Visit Number: [id number] Discharge Date: ATTENTION: The Clinical Documentation Specialists (CDI) and [facility] Coding Staff appreciate your assistance in clarifying documentation. Please respond to the clarification below the line at the bottom and electronically sign. The CDI & [facility] Coding staff will review the response and follow-up if needed. Please note: Queries are made part of the Legal Health Record. If you have any questions, please contact the author of this message via ITS. Dr. Chichi Chen Your patient has the documented diagnosis of unspecified CHF in the progress notes. Additional information regarding the type of CHF is requested. History/Risk Factors: A fib with recent Watchmen procedure on anticoagulation. HTN, HLD, CKD 3, DM, NSTEMI, diverticulosis, GERD and gout Clinical Indicators: 05/2022 Echo: Reduced LV systolic function ejection fraction around 40% 01/14 BP 149/62-160/62 01/16 HR 59 01/14 Cr 1.77 Treatment: Lasix 40mg po daily. Lasix 20mg po QHS. Metoprolol 100mg po BID 01/14- current In your professional opinion, can you please clarify the type of CHF if known? [ xxx ] Chronic Systolic Heart Failure [ ] Chronic Diastolic Heart Failure [ ] Chronic Systolic & Diastolic Heart Failure [ ] Other, please specify [ ] Unable to determine MTDD
[2023-01-16 16:45] LABS: Glucose,Whole Blood 224 mg/dL (70-110)
--- NOTE | 2023-01-16 18:44 | P.PN ---
Subjective Progress Note Date: 01/16/23 Kevin Mcknight, is a 73-year-old male who presented to [facility] emergency room with a chief complaint of rectal bleeding, patient stated that since yesterday morning he had 4 bloody bowel movements He was evaluated in the emergency room vital examination on presentation revealed a temperature of 97.8 pulse 64 respiration 18 blood pressure 144/64 pulse ox 98% on room air Laboratory data revealed a white blood count of 7.0 hemoglobin 11.3 platelet count 223 sodium 137 potassium 4.2 chloride 97 CO2 32 BUN 29 creatinine 1.77 stool for occult blood was positive Patient was admitted to medical floor for further evaluation and treatment Past medical history is significant for history of hypertension, hyperlipidemia, insulin-dependent diabetes mellitus, coronary artery disease, history of atrial fibrillation with watchman procedure done on Monday, prior to that patient was maintained on Eliquis, currently patient is maintained on aspirin and Plavix. On review of systems patient is alert and oriented 3 in no apparent distress there is no fever or chills no headache or dizziness no chest pain no shortness of breath no cough no nausea or vomiting no abdominal pain no diarrhea, no burning with urination no frequency or urgency and no hematuria, no weakness or numbness in any of the extremities no change in vision speech or gait. On 01/15/2023 patient was seen and examined on the medical floor he is alert and oriented 3 in no apparent distress, he continues to have episodes of bloody bowel movements, otherwise he denies any complaints there is no fever or chills no headache or dizziness no chest pain no shortness of breath no cough no nausea or vomiting no abdominal pain no diarrhea no burning with urination no frequency or urgency and no hematuria. At this time we are still awaiting evaluation by general surgery, and there are still awaiting opinion by cardiology in regard to use of dual antiplatelet therapy. Will follow closely. On 01/16/2023 patient is alert and oriented 3 in no apparent distress, he continues to have episodes of bloody bowel movements, otherwise he denies any complaints there is no fever or chills no headache or dizziness no chest pain no shortness of breath no cough no nausea or vomiting no abdominal pain no diarrhea no burning with urination no frequency or urgency and no hematuria. At this time we are still awaiting evaluation by general surgery, and there are still awaiting opinion by cardiology in regard to use of dual antiplatelet therapy. Will follow closely. Objective - Vital Signs Vital signs: Vital Signs Temp 97.7 F 01/16/23 01:59 Pulse 72 01/16/23 01:59 Resp 18 01/16/23 01:59 BP 144/74 01/16/23 01:59 Pulse Ox 96 01/16/23 01:59 FiO2 Intake & Output 01/15/23 01/16/23 01/16/23 18:59 06:59 18:59 Other: # Voids 5 1 # Bowel Movements 2 - Exam In general patient is alert and oriented x 3 in no distress HEENT head normocephalic and atraumatic Neck is supple no JVD no goiter no lymphadenopathy no carotid bruit Chest examination is clear to auscultation no crackles no wheezing Cardiac exam reveals regular heart sounds S1 and S2 no gallops no murmurs Abdomen is soft nontender no organomegaly with normal bowel sounds Extremity exam reveals no edema no cyanosis or clubbing Neurological examination reveals no gross focal deficits - Labs CBC & Chem 7: 01/16/23 05:22 01/16/23 05:22 Labs: Abnormal Lab Results - Last 24 Hours (Table) 01/15/23 01/15/23 01/15/23 Range/Units 09:48 09:48 11:33 Hgb 12.2 L (13.0-17.5) gm/dL MCH 24.0 L (25.0-35.0) pg MCHC 29.9 L (31.0-37.0) g/dL RDW 18.5 H (11.5-15.5) % Sodium 134 L (137-145) mmol/L Chloride 93 L (98-107) mmol/L Carbon Dioxide 35 H (22-30) mmol/L BUN 24 H (9-20) mg/dL Creatinine 1.78 H (0.66-1.25) mg/dL Glucose 271 H (74-99) mg/dL POC Glucose (mg/dL) 207 H (70-110) mg/dL 01/15/23 01/15/23 01/16/23 Range/Units 16:34 19:59 05:38 Hgb (13.0-17.5) gm/dL MCH (25.0-35.0) pg MCHC (31.0-37.0) g/dL RDW (11.5-15.5) % Sodium (137-145) mmol/L Chloride (98-107) mmol/L Carbon Dioxide (22-30) mmol/L BUN (9-20) mg/dL Creatinine (0.66-1.25) mg/dL Glucose (74-99) mg/dL POC Glucose (mg/dL) 145 H 186 H 197 H (70-110) mg/dL Assessment and Plan Plan: Recurrent episodes of rectal bleeding, started Monday morning History of atrial fibrillation with recent watchman procedure, patient is maintained on aspirin and Plavix at this time Underlying history of hypertension Underlying history of hyperlipidemia Underlying history of coronary artery disease Underlying history of insulin-dependent diabetes mellitus Underlying history of gastroesophageal reflux disease Underlying history of gout Underlying history of chronic kidney disease stage III At this time patient will be admitted to medical floor Will monitor CBC closely, transfuse red blood cells if hemoglobin below 7 Consultation for general surgery was initiated for evaluation of rectal bleeding Consultation for cardiology was initiated to assess antiplatelet medications Will follow closely with
[2023-01-16] MEDS: FUROSEMIDE 20 MG TAB PO SCH (19:59)
[2023-01-16] MEDS: PRAVASTATIN SODIUM 80 MG TAB PO SCH (19:59)
[2023-01-16] MEDS: CHOLECALCIFEROL 25 MCG (1000 IU) TABLET PO SCH (19:59)
[2023-01-16 20:22] LABS: Glucose,Whole Blood 222 mg/dL (70-110)
[2023-01-17] MEDS: PANTOPRAZOLE 40 MG TABLET PO SCH ×2 (06:08→17:10)
[2023-01-17 06:18] LABS: Glucose,Whole Blood 121 mg/dL (70-110)
[2023-01-17 08:49] LABS: Basophils # (A) 0.03 X 10*3/uL (0.00-0.10); Basophils % (A) 0.4 %; Eosinophils # (A) 0.15 X 10*3/uL (0.04-0.35); Eosinophils % (A) 2.1 %; HCT 36.9 % (39.6-50.0); HGB 10.7 g/dL (13.0-17.0); Immature Grans, Automated 0.3 %; MCH 23.5 pg (27.0-32.0); MCV 80.9 fL (80.0-97.0); Mean Platelet Volume 9.4 fL (9.5-12.2); Monocytes # (A) 0.77 X 10*3/uL (0.20-1.00); Monocytes % (A) 10.8 %; NRBC Per 100 WBC 0 /100 WBCS (0.0-0.0); Neutrophils # (A) 4.18 X 10*3/uL (1.80-7.70); Neutrophils % (A) 58.4 %; Platelet Count 270 X 10*3/uL (140-440); RBC 4.56 X 10*6/uL (4.40-5.60); RDW 19.1 % (11.5-14.5); WBC 7.15 X 10*3/uL (4.50-10.00)
[2023-01-17 08:56] LABS: Albumin 3.9 g/dL (3.8-4.9); Albumin/Globulin Ratio 1.63 (1.60-3.17); Anion Gap 10.7 mmol/L (10.00-18.00); BUN/Creat Ratio 15.22 Ratio (12.00-20.00); Blood Urea Nitrogen 27.4 mg/dL (9.0-27.0); Calcium 9.4 mg/dL (8.7-10.3); Carbon Dioxide 30.3 mmol/L (20.0-27.5); Globulin 2.4 g/dL (1.6-3.3); Non-African American GFR(CKD) 36.3 (60.0-200.0); Potassium 4.1 mmol/L (3.5-5.5); Total Bilirubin 0.3 mg/dL (0.30-1.20); Total Protein 6.3 g/dL (6.2-8.2)
[2023-01-17] MEDS: DAPAGLIFLOZIN PROPANEDIOL 5 MG TABLET PO SCH (09:02)
[2023-01-17] MEDS: allopurinoL 100 MG TAB PO SCH (09:02)
[2023-01-17] MEDS: METOPROLOL SUCCINATE (ER) 50 MG TAB.ER.24H PO SCH ×2 (09:02→21:07)
[2023-01-17] MEDS: RANOLAZINE 500 MG TAB.ER.12H PO SCH ×2 (09:02→21:07)
[2023-01-17] MEDS: INSULIN NPH 100 UNIT/ML 10 ML VIAL SQ SCH (09:02)
[2023-01-17] MEDS: MONTELUKAST 10 MG TAB PO SCH (09:02)
[2023-01-17] MEDS: FUROSEMIDE 40 MG TAB PO SCH (09:02)
[2023-01-17] MEDS: CLOPIDOGREL 75 MG TAB PO SCH (09:02)
[2023-01-17] MEDS: ASPIRIN 81 MG PO SCH (09:02)
[2023-01-17] MEDS: polyethylene glycoL 3350 17 GM POWD.PACK PO SCH (10:06)
[2023-01-17 11:17] LABS: Glucose,Whole Blood 183 mg/dL (70-110)
[2023-01-17] MEDS: MAGNESIUM OXIDE 400 MG TAB PO SCH (11:54)
--- NOTE | 2023-01-17 13:15 | P.PN ---
Subjective Progress Note Date: 01/17/23 CHIEF COMPLAINT: GI bleeding HISTORY OF PRESENT ILLNESS: Patient has had no further bleeding from rectum. He has been restarted on his aspirin and Plavix. Hemoglobin did go down from 11.5 to 10.7. He denies any abdominal pain. He denies any nausea vomiting. Tolerating regular diet. Last EGD and colonoscopy was in November 2022 that showed evidence of gastritis and diverticulosis. He had a capsule endoscopy a few years ago that was negative. Atrial fibrillation status post recent watchman procedure. Cardiology recommending aspirin and Plavix for at least 3 months post watchman procedure. Patient complaining of constipation Patient seen and examined with Dr. Dejesus PHYSICAL EXAM: VITAL SIGNS: Reviewed. GENERAL: Well-developed in no acute distress. HEENT: No sclera icterus. Extraocular movements grossly intact. Moist buccal mucosa. Head is atraumatic, normocephalic. ABDOMEN: Soft. Nondistended. Nontender. NEUROLOGIC: Alert and oriented. Cranial nerves II through XII grossly intact. ASSESSMENT: 1. Recurrent GI bleed now resolved PLAN: -No plans for endoscopies this time -MiraLAX added for constipation -Patient can be discharged from surgical standpoint with outpatient follow up Physician Piledriver Carpenter note has been reviewed by physician. Signing provider agrees with the documented findings, assessment, and plan of care. Objective - Vital Signs Vital signs: Vital Signs Temp 98.8 F 01/17/23 07:11 Pulse 61 01/17/23 07:11 Resp 18 01/17/23 07:11 BP 112/53 01/17/23 07:11 Pulse Ox 100 01/17/23 07:11 FiO2 Intake & Output 01/16/23 01/17/23 01/17/23 18:59 06:59 18:59 Other: Voiding Method Toilet # Voids 4 3 - Labs CBC & Chem 7: 01/17/23 05:12 01/17/23 05:12 Labs: Abnormal Lab Results - Last 24 Hours (Table) 01/16/23 01/16/23 01/17/23 Range/Units 16:44 20:20 05:12 Hgb 10.7 L (13.0-17.0) g/dL Hct 36.9 L (39.6-50.0) % MCH 23.5 L (27.0-32.0) pg MCHC 29.0 L (32.0-37.0) g/dL RDW 19.1 H (11.5-14.5) % MPV 9.4 L (9.5-12.2) fL Carbon Dioxide (20.0-27.5) mmol/L BUN (9.0-27.0) mg/dL Creatinine (0.6-1.5) mg/dL Est GFR (CKD-EPI)AfAm (60.0-200.0) Est GFR (CKD-EPI)NonAf (60.0-200.0) POC Glucose (mg/dL) 224 H 222 H (70-110) mg/dL AST (14-35) U/L 01/17/23 01/17/23 01/17/23 Range/Units 05:12 06:17 11:16 Hgb (13.0-17.0) g/dL Hct (39.6-50.0) % MCH (27.0-32.0) pg MCHC (32.0-37.0) g/dL RDW (11.5-14.5) % MPV (9.5-12.2) fL Carbon Dioxide 30.3 H (20.0-27.5) mmol/L BUN 27.4 H (9.0-27.0) mg/dL Creatinine 1.8 H (0.6-1.5) mg/dL Est GFR (CKD-EPI)AfAm 42.0 L (60.0-200.0) Est GFR (CKD-EPI)NonAf 36.3 L (60.0-200.0) POC Glucose (mg/dL) 121 H 183 H (70-110) mg/dL AST 12 L (14-35) U/L
[2023-01-17 16:33] LABS: Glucose,Whole Blood 192 mg/dL (70-110)
--- NOTE | 2023-01-17 16:54 | P.PN ---
Subjective Progress Note Date: 01/17/23 Kevin Mcknight, is a 73-year-old male who presented to [facility] emergency room with a chief complaint of rectal bleeding, patient stated that since yesterday morning he had 4 bloody bowel movements He was evaluated in the emergency room vital examination on presentation revealed a temperature of 97.8 pulse 64 respiration 18 blood pressure 144/64 pulse ox 98% on room air Laboratory data revealed a white blood count of 7.0 hemoglobin 11.3 platelet count 223 sodium 137 potassium 4.2 chloride 97 CO2 32 BUN 29 creatinine 1.77 stool for occult blood was positive Patient was admitted to medical floor for further evaluation and treatment Past medical history is significant for history of hypertension, hyperlipidemia, insulin-dependent diabetes mellitus, coronary artery disease, history of atrial fibrillation with watchman procedure done on Monday, prior to that patient was maintained on Eliquis, currently patient is maintained on aspirin and Plavix. On review of systems patient is alert and oriented 3 in no apparent distress there is no fever or chills no headache or dizziness no chest pain no shortness of breath no cough no nausea or vomiting no abdominal pain no diarrhea, no burning with urination no frequency or urgency and no hematuria, no weakness or numbness in any of the extremities no change in vision speech or gait. On 01/15/2023 patient was seen and examined on the medical floor he is alert and oriented 3 in no apparent distress, he continues to have episodes of bloody bowel movements, otherwise he denies any complaints there is no fever or chills no headache or dizziness no chest pain no shortness of breath no cough no nausea or vomiting no abdominal pain no diarrhea no burning with urination no frequency or urgency and no hematuria. At this time we are still awaiting evaluation by general surgery, and there are still awaiting opinion by cardiology in regard to use of dual antiplatelet therapy. Will follow closely. On 01/16/2023 patient is alert and oriented 3 in no apparent distress, he continues to have episodes of bloody bowel movements, otherwise he denies any complaints there is no fever or chills no headache or dizziness no chest pain no shortness of breath no cough no nausea or vomiting no abdominal pain no diarrhea no burning with urination no frequency or urgency and no hematuria. At this time we are still awaiting evaluation by general surgery, and there are still awaiting opinion by cardiology in regard to use of dual antiplatelet therapy. Will follow closely. On 01/17/2023 patient was seen and examined on the medical floor he is alert and oriented 3 in no apparent distress, he is still complaining of significant amount of blood in the stools otherwise he denies any complaints there is no fever or chills no headache or dizziness no chest pain no shortness of breath no cough no nausea or vomiting no abdominal pain or diarrhea no burning with urination no frequency or urgency no hematuria. Hemoglobin is down to 10.7 today. Possibility of discharge to home today was discussed with patient, he is still very worried about the amount of blood in the stools, will monitor for 1 more day Objective - Vital Signs Vital signs: Vital Signs Temp 98.9 F 01/17/23 13:51 Pulse 59 L 01/17/23 13:51 Resp 18 01/17/23 13:51 BP 143/71 01/17/23 13:51 Pulse Ox 97 01/17/23 13:51 FiO2 Intake & Output 01/16/23 01/17/23 01/17/23 18:59 06:59 18:59 Other: Voiding Method Toilet # Voids 4 3 - Exam In general patient is alert and oriented x 3 in no distress HEENT head normocephalic and atraumatic Neck is supple no JVD no goiter no lymphadenopathy no carotid bruit Chest examination is clear to auscultation no crackles no wheezing Cardiac exam reveals regular heart sounds S1 and S2 no gallops no murmurs Abdomen is soft nontender no organomegaly with normal bowel sounds Extremity exam reveals no edema no cyanosis or clubbing Neurological examination reveals no gross focal deficits - Labs CBC & Chem 7: 01/17/23 05:12 01/17/23 05:12 Labs: Abnormal Lab Results - Last 24 Hours (Table) 01/16/23 01/16/23 01/17/23 Range/Units 16:44 20:20 05:12 Hgb 10.7 L (13.0-17.0) g/dL Hct 36.9 L (39.6-50.0) % MCH 23.5 L (27.0-32.0) pg MCHC 29.0 L (32.0-37.0) g/dL RDW 19.1 H (11.5-14.5) % MPV 9.4 L (9.5-12.2) fL Carbon Dioxide (20.0-27.5) mmol/L BUN (9.0-27.0) mg/dL Creatinine (0.6-1.5) mg/dL Est GFR (CKD-EPI)AfAm (60.0-200.0) Est GFR (CKD-EPI)NonAf (60.0-200.0) POC Glucose (mg/dL) 224 H 222 H (70-110) mg/dL AST (14-35) U/L 01/17/23 01/17/23 01/17/23 Range/Units 05:12 06:17 11:16 Hgb (13.0-17.0) g/dL Hct (39.6-50.0) % MCH (27.0-32.0) pg MCHC (32.0-37.0) g/dL RDW (11.5-14.5) % MPV (9.5-12.2) fL Carbon Dioxide 30.3 H (20.0-27.5) mmol/L BUN 27.4 H (9.0-27.0) mg/dL Creatinine 1.8 H (0.6-1.5) mg/dL Est GFR (CKD-EPI)AfAm 42.0 L (60.0-200.0) Est GFR (CKD-EPI)NonAf 36.3 L (60.0-200.0) POC Glucose (mg/dL) 121 H 183 H (70-110) mg/dL AST 12 L (14-35) U/L 01/17/23 Range/Units 16:31 Hgb (13.0-17.0) g/dL Hct (39.6-50.0) % MCH (27.0-32.0) pg MCHC (32.0-37.0) g/dL RDW (11.5-14.5) % MPV (9.5-12.2) fL Carbon Dioxide (20.0-27.5) mmol/L BUN (9.0-27.0) mg/dL Creatinine (0.6-1.5) mg/dL Est GFR (CKD-EPI)AfAm (60.0-200.0) Est GFR (CKD-EPI)NonAf (60.0-200.0) POC Glucose (mg/dL) 192 H (70-110) mg/dL AST (14-35) U/L Assessment and Plan Plan: Recurrent episodes of rectal bleeding, started Monday morning History of atrial fibrillation with recent watchman procedure, patient is m aintained on aspirin and Plavix at this time Underlying history of hypertension Underlying history of hyperlipidemia Underlying history of coronary artery disease Underlying history of insulin-dependent diabetes mellitus Underlying history of gastroesophageal reflux disease Underlying history of gout Underlying history of chronic kidney disease stage III At this time patient will be admitted to medical floor Will monitor CBC closely, transfuse red blood cells if hemoglobin below 7 Consultation for general surgery was initiated for evaluation of rectal bleeding Consultation for cardiology was initiated to assess antiplatelet medications Will follow closely with
[2023-01-17 20:55] LABS: Glucose,Whole Blood 157 mg/dL (70-110)
[2023-01-17] MEDS: CHOLECALCIFEROL 25 MCG (1000 IU) TABLET PO SCH (21:07)
[2023-01-17] MEDS: FUROSEMIDE 20 MG TAB PO SCH (21:07)
[2023-01-17] MEDS: PRAVASTATIN SODIUM 80 MG TAB PO SCH (21:07)
[2023-01-18 06:14] LABS: Glucose,Whole Blood 169 mg/dL (70-110)
[2023-01-18] MEDS: PANTOPRAZOLE 40 MG TABLET PO SCH (07:00)
[2023-01-18] MEDS: INSULIN NPH 100 UNIT/ML 10 ML VIAL SQ SCH (08:15)
[2023-01-18] MEDS: polyethylene glycoL 3350 17 GM POWD.PACK PO SCH (08:15)
[2023-01-18] MEDS: RANOLAZINE 500 MG TAB.ER.12H PO SCH (08:16)
[2023-01-18] MEDS: DAPAGLIFLOZIN PROPANEDIOL 5 MG TABLET PO SCH (08:16)
[2023-01-18] MEDS: MONTELUKAST 10 MG TAB PO SCH (08:16)
[2023-01-18] MEDS: CLOPIDOGREL 75 MG TAB PO SCH (08:16)
[2023-01-18] MEDS: allopurinoL 100 MG TAB PO SCH (08:16)
[2023-01-18] MEDS: FUROSEMIDE 40 MG TAB PO SCH (08:16)
[2023-01-18] MEDS: METOPROLOL SUCCINATE (ER) 50 MG TAB.ER.24H PO SCH (08:16)
[2023-01-18] MEDS: ASPIRIN 81 MG PO SCH (08:16)
[2023-01-18 10:47] LABS: Basophils # (A) 0.04 X 10*3/uL (0.00-0.10); Basophils % (A) 0.6 %; Eosinophils # (A) 0.13 X 10*3/uL (0.04-0.35); Eosinophils % (A) 1.8 %; HCT 36.4 % (39.6-50.0); HGB 10.5 g/dL (13.0-17.0); Immature Grans, Automated 0.7 %; Lymphocytes # (A) 1.71 X 10*3/uL (0.90-5.00); Lymphocytes % (A) 24.2 %; MCH 23.4 pg (27.0-32.0); MCHC 28.8 g/dL (32.0-37.0); MCV 81.1 fL (80.0-97.0); Mean Platelet Volume 9.3 fL (9.5-12.2); Monocytes # (A) 0.68 X 10*3/uL (0.20-1.00); Monocytes % (A) 9.6 %; NRBC Per 100 WBC 0 /100 WBCS (0.0-0.0); Neutrophils # (A) 4.47 X 10*3/uL (1.80-7.70); Neutrophils % (A) 63.1 %; Platelet Count 272 X 10*3/uL (140-440); RBC 4.49 X 10*6/uL (4.40-5.60); RDW 18.8 % (11.5-14.5); WBC 7.08 X 10*3/uL (4.50-10.00)
--- NOTE | 2023-01-18 10:57 | P.DS ---
Providers Date of admission: 01/14/23 08:48 Expected date of discharge: 01/18/23 Attending physician: Chichi Chen Consults: 01/14/23 11:57 Consult Physician Routine Consulting Provider: Roly Dejesus Consult Reason/Comments: Rectal bleeding Do you want consulting provider notified?: Yes Primary care physician: [facility] Course: Discharge diagnosis Recurrent episodes of rectal bleeding, started Monday morning History of atrial fibrillation with recent watchman procedure, patient is maintained on aspirin and Plavix at this time Underlying history of hypertension Underlying history of hyperlipidemia Underlying history of coronary artery disease Underlying history of insulin-dependent diabetes mellitus Underlying history of gastroesophageal reflux disease Underlying history of gout Underlying history of chronic kidney disease stage III Hospital course Kevin Mcknight, is a 73-year-old male who presented to [facility] emergency room with a chief complaint of rectal bleeding, patient stated that since yesterday morning he had 4 bloody bowel movements He was evaluated in the emergency room vital examination on presentation revealed a temperature of 97.8 pulse 64 respiration 18 blood pressure 144/64 pulse ox 98% on room air Laboratory data revealed a white blood count of 7.0 hemoglobin 11.3 platelet count 223 sodium 137 potassium 4.2 chloride 97 CO2 32 BUN 29 creatinine 1.77 stool for occult blood was positive Patient was admitted to medical floor for further evaluation and treatment Past medical history is significant for history of hypertension, hyperlipidemia, insulin-dependent diabetes mellitus, coronary artery disease, history of atrial fibrillation with watchman procedure done on Monday, prior to that patient was maintained on Eliquis, currently patient is maintained on aspirin and Plavix. On review of systems patient is alert and oriented 3 in no apparent distress there is no fever or chills no headache or dizziness no chest pain no shortness of breath no cough no nausea or vomiting no abdominal pain no diarrhea, no burning with urination no frequency or urgency and no hematuria, no weakness or numbness in any of the extremities no change in vision speech or gait. On 01/15/2023 patient was seen and examined on the medical floor he is alert and oriented 3 in no apparent distress, he continues to have episodes of bloody bowel movements, otherwise he denies any complaints there is no fever or chills no headache or dizziness no chest pain no shortness of breath no cough no nausea or vomiting no abdominal pain no diarrhea no burning with urination no frequency or urgency and no hematuria. At this time we are still awaiting evaluation by general surgery, and there are still awaiting opinion by cardiology in regard to use of dual antiplatelet therapy. Will follow closely. On 01/16/2023 patient is alert and oriented 3 in no apparent distress, he continues to have episodes of bloody bowel movements, otherwise he denies any complaints there is no fever or chills no headache or dizziness no chest pain no shortness of breath no cough no nausea or vomiting no abdominal pain no diarrhea no burning with urination no frequency or urgency and no hematuria. At this time we are still awaiting evaluation by general surgery, and there are still awaiting opinion by cardiology in regard to use of dual antiplatelet therapy. Will follow closely. On 01/17/2023 patient was seen and examined on the medical floor he is alert and oriented 3 in no apparent distress, he is still complaining of significant amount of blood in the stools otherwise he denies any complaints there is no fever or chills no headache or dizziness no chest pain no shortness of breath no cough no nausea or vomiting no abdominal pain or diarrhea no burning with urination no frequency or urgency no hematuria. Hemoglobin is down to 10.7 today. Possibility of discharge to home today was discussed with patient, he is still very worried about the amount of blood in the stools, will monitor for 1 more day. On 01/18/2023 patient alert and oriented 3. Patient had bowel movement that was normal did not show any signs of blood. Hemoglobin stable this a.m. and 10.5. Per cardiology services patient continue aspirin and Plavix at this time. Patient denies chest pain or shortness of breath. Patient denies nausea vomiting diarrhea. Patient denies any urinary frequency. Current vital signs temp 97.7, heart rate 60, respiratory rate 17, blood pressure 115/54 pulse ox 97% patient follow-up PCP in consulting providers for further management Patient Condition at Discharge: Stable Plan - Discharge Summary Discharge Rx Participant: No New Discharge Prescriptions: New polyethylene glycoL 3350 [Miralax] 17 gm PO DAILY packet Continue allopurinoL [Zyloprim] 100 mg PO DAILY Nitroglycerin Sl Tabs [Nitrostat] 0.4 mg SL Q5M PRN PRN Reason: Chest Pain Montelukast [Singulair] 10 mg PO DAILY Ranolazine [Ranexa] 500 mg PO BID Pravastatin Sodium 80 mg PO HS Empagliflozin [Jardiance] 12.5 mg PO DAILY Metoprolol Succinate (ER) [Toprol XL] 100 mg PO BID Aspirin EC [Ecotrin Low Dose] 81 mg PO Q48H Furosemide [Lasix] 20 mg PO HS Furosemide [Lasix] 40 mg PO DAILY Cholecalciferol (Vitamin D3) [Vitamin D3 (125 MCG = 5,000 IU)] 125 mcg PO HS Magnesium Oxide [Magnesium] 1,000 mg PO DAILY@1200 Pantoprazole [Protonix] 40 mg PO BID Simethicone [Gas-X] 125 mg PO QID PRN PRN Reason: gas/bloating Cyanocobalamin [Vitamin B-12 Injection] 1,000 mcg SQ Q60D Clopidogrel [Plavix] 75 mg PO DAILY Insulin NPH Human Isophane [Novolin N] 64 units SQ DAILY Discharge Medication List allopurinoL [Zyloprim] 100 mg PO DAILY 03/16/15 [History] Nitroglycerin Sl Tabs [Nitrostat] 0.4 mg SL Q5M PRN 05/12/16 [History] Montelukast [Singulair] 10 mg PO DAILY 08/31/17 [History] Ranolazine [Ranexa] 500 mg PO BID 08/31/17 [History] Pravastatin Sodium 80 mg PO HS 01/15/19 [History] Empagliflozin [Jardiance] 12.5 mg PO DAILY 08/04/21 [History] Cholecalciferol (Vitamin D3) [Vitamin D3 (125 MCG = 5,000 IU)] 125 mcg PO HS 02/10/22 [History] Magnesium Oxide [Magnesium] 1,000 mg PO DAILY@1200 02/10/22 [History] Metoprolol Succinate (ER) [Toprol XL] 100 mg PO BID 02/10/22 [History] Pantoprazole [Protonix] 40 mg PO BID 02/10/22 [History] Aspirin EC [Ecotrin Low Dose] 81 mg PO Q48H 06/20/22 [History] Simethicone [Gas-X] 125 mg PO QID PRN 10/18/22 [History] Cyanocobalamin [Vitamin B-12 Injection] 1,000 mcg SQ Q60D 10/19/22 [History] Clopidogrel [Plavix] 75 mg PO DAILY 01/14/23 [History] Furosemide [Lasix] 20 mg PO HS 01/14/23 [History] Furosemide [Lasix] 40 mg PO DAILY 01/14/23 [History] Insulin NPH Human Isophane [Novolin N] 64 units SQ DAILY 01/14/23 [History] polyethylene glycoL 3350 [Miralax] 17 gm PO DAILY packet 01/17/23 [Rx] Follow up Appointment(s)/Referral(s): Kristel Hall MD [Primary Care Provider] - 1-2 days Roly Dejesus MD [STAFF PHYSICIAN] - 1 Week
[2023-01-18 11:05] LABS: Albumin/Globulin Ratio 1.74 (1.60-3.17); Anion Gap 10.3 mmol/L (10.00-18.00); BUN/Creat Ratio 15.15 Ratio (12.00-20.00); Blood Urea Nitrogen 30.3 mg/dL (9.0-27.0); Calcium 9.4 mg/dL (8.7-10.3); Carbon Dioxide 30.7 mmol/L (20.0-27.5); Globulin 2.3 g/dL (1.6-3.3); Non-African American GFR(CKD) 31.9 (60.0-200.0); Potassium 4.5 mmol/L (3.5-5.5); Total Bilirubin 0.3 mg/dL (0.30-1.20); Total Protein 6.3 g/dL (6.2-8.2)
--- NOTE | 2023-01-18 11:23 | P.PN ---
Subjective Progress Note Date: 01/18/23 CHIEF COMPLAINT: GI bleeding HISTORY OF PRESENT ILLNESS: Patient had episode of bleeding yesterday with bowel movement. Patient reports that he noted blood in the total water. Stool had been hard and brown. He denies any abdominal pain. Denies any rectal pain. Denies any nausea vomiting. Hemoglobin is remaining stable at 10.5. He is scheduled for discharge today. Apparently, the patient had a bowel movement after I seen him this morning. Medicine service reports that the bowel movement had no blood. Patient seen and examined with Dr. Dejesus PHYSICAL EXAM: VITAL SIGNS: Reviewed. GENERAL: Well-developed in no acute distress. HEENT: No sclera icterus. Extraocular movements grossly intact. Moist buccal mucosa. Head is atraumatic, normocephalic. ABDOMEN: Soft. Nondistended. Nontender. NEUROLOGIC: Alert and oriented. Cranial nerves II through XII grossly intact. ASSESSMENT: 1. Recurrent GI bleed with rectal bleeding. Now resolved 2. Possible diverticular bleed PLAN: -No plans for endoscopies this time -Continue MiraLAX to avoid constipation -Patient can be discharged from surgical standpoint with outpatient follow up Physician Client Support Analyst note has been reviewed by physician. Signing provider agrees with the documented findings, assessment, and plan of care. Objective - Vital Signs Vital signs: Vital Signs Temp 97.7 F 01/18/23 06:57 Pulse 60 01/18/23 08:00 Resp 17 01/18/23 06:57 BP 115/54 01/18/23 06:57 Pulse Ox 97 01/18/23 06:57 FiO2 Intake & Output 01/17/23 01/18/23 01/18/23 18:59 06:59 18:59 Other: Voiding Method Toilet Toilet # Voids 2 # Bowel Movements 1 - Labs CBC & Chem 7: 01/18/23 06:07 01/18/23 06:07 Labs: Abnormal Lab Results - Last 24 Hours (Table) 01/17/23 01/17/23 01/18/23 Range/Units 16:31 20:53 06:07 Hgb 10.5 L (13.0-17.0) g/dL Hct 36.4 L (39.6-50.0) % MCH 23.4 L (27.0-32.0) pg MCHC 28.8 L (32.0-37.0) g/dL RDW 18.8 H (11.5-14.5) % MPV 9.3 L (9.5-12.2) fL Immature Gran # 0.05 H (0.00-0.04) X 10*3/uL Carbon Dioxide (20.0-27.5) mmol/L BUN (9.0-27.0) mg/dL Creatinine (0.6-1.5) mg/dL Est GFR (CKD-EPI)AfAm (60.0-200.0) Est GFR (CKD-EPI)NonAf (60.0-200.0) Glucose (70-110) mg/dL POC Glucose (mg/dL) 192 H 157 H (70-110) mg/dL AST (14-35) U/L 01/18/23 01/18/23 Range/Units 06:07 06:12 Hgb (13.0-17.0) g/dL Hct (39.6-50.0) % MCH (27.0-32.0) pg MCHC (32.0-37.0) g/dL RDW (11.5-14.5) % MPV (9.5-12.2) fL Immature Gran # (0.00-0.04) X 10*3/uL Carbon Dioxide 30.7 H (20.0-27.5) mmol/L BUN 30.3 H (9.0-27.0) mg/dL Creatinine 2.0 H (0.6-1.5) mg/dL Est GFR (CKD-EPI)AfAm 37.0 L (60.0-200.0) Est GFR (CKD-EPI)NonAf 31.9 L (60.0-200.0) Glucose 171 H (70-110) mg/dL POC Glucose (mg/dL) 169 H (70-110) mg/dL AST 11 L (14-35) U/L
[2023-01-18] MEDS: MAGNESIUM OXIDE 400 MG TAB PO SCH (12:13)
[2023-01-18 15:14] VITALS: BP 144/65; PULSE 62; RESP 19; TEMP 97.8
== END 2023-01-18 13:53 | disposition home or self-care (01) | DRG 378 ==
LOC: EC 05:08 → 4SSUR 08:48
PROVIDERS: ADMIT Internal Medicine; ATTEND Internal Medicine
DX: K62.5 Hemorrhage of anus and rectum (principal); I13.0 Hypertensive heart and chronic kidney disease with heart failure and stage 1 through stage 4 chronic kidney disease, or unspecified chronic kidney disease; I50.22 Chronic systolic (congestive) heart failure; I48.0 Paroxysmal atrial fibrillation; E78.5 Hyperlipidemia, unspecified; I25.10 Atherosclerotic heart disease of native coronary artery without angina pectoris; N18.30 Chronic kidney disease, stage 3 unspecified; I12.9 Hypertensive chronic kidney disease with stage 1 through stage 4 chronic kidney disease, or unspecified chronic kidney disease; E11.51 Type 2 diabetes mellitus with diabetic peripheral angiopathy without gangrene; E11.22 Type 2 diabetes mellitus with diabetic chronic kidney disease; I25.5 Ischemic cardiomyopathy; I25.2 Old myocardial infarction; K29.70 Gastritis, unspecified, without bleeding; K59.00 Constipation, unspecified; K57.90 Diverticulosis of intestine, part unspecified, without perforation or abscess without bleeding; M19.90 Unspecified osteoarthritis, unspecified site; G89.29 Other chronic pain; M10.9 Gout, unspecified; D64.9 Anemia, unspecified; K21.9 Gastro-esophageal reflux disease without esophagitis; Z79.4 Long term (current) use of insulin; Z79.82 Long term (current) use of aspirin; Z79.01 Long term (current) use of anticoagulants; Z87.19 Personal history of other diseases of the digestive system; Z79.02 Long term (current) use of antithrombotics/antiplatelets; Z86.010 Personal history of colon polyps; Z82.2 Family history of deafness and hearing loss; Z95.818 Presence of other cardiac implants and grafts; Z90.49 Acquired absence of other specified parts of digestive tract; Z88.2 Allergy status to sulfonamides; Z88.1 Allergy status to other antibiotic agents; Z79.899 Other long term (current) drug therapy; Z95.1 Presence of aortocoronary bypass graft
CPT/HCPCS: 36415; 80053; 82272; 83605; 83735; 84484; 85025; 85610; 85730; 86850; 86900; 86901; 96360; 96361; 99285

== ENCOUNTER 2023-02-03 20:42 | Inpatient (IN) | payer MEDICARE ==
[2023-02-03 22:18] LABS: Anisocytosis Slight; Basophils % (A) 0 %; Eosinophils # (A) 0.1 k/uL (0-0.7); Eosinophils % (A) 2 %; HCT 30.6 % (39.0-53.0); Hypochromasia Marked; Lymphocytes # (A) 1.5 k/uL (1.0-4.8); Lymphocytes % (A) 24 %; MCH 24.1 pg (25.0-35.0); MCHC 29.7 g/dL (31.0-37.0); MCV 81.2 fL (80.0-100.0); Mean Platelet Volume 7.7; Microcytosis Slight; Monocytes # (A) 0.4 k/uL (0-1.0); Monocytes % (A) 6 %; Neutrophils # (A) 4.2 k/uL (1.3-7.7); Neutrophils % (A) 65 %; Platelet Count 201 k/uL (150-450); Poikilocytosis Slight; RBC 3.76 m/uL (4.30-5.90); RDW 19.5 % (11.5-15.5); WBC 6.4 k/uL (3.8-10.6)
[2023-02-03 22:23] LABS: Partial Thromboplastin Time 22.2 sec (22.0-30.0); Prothrombin Time 10.8 sec (9.0-12.0)
[2023-02-03 22:26] LABS: ALT 16 U/L (4-49); AST 20 U/L (17-59); African American GFR (CKD) 48 (>60 ml/min/1.73 sqM); Albumin 3.9 g/dL (3.5-5.0); Alkaline Phosphatase 94 U/L (38-126); Anion Gap 13 mmol/L; Blood Urea Nitrogen 24 mg/dL (9-20); Calcium 8.5 mg/dL (8.4-10.2); Carbon Dioxide 25 mmol/L (22-30); Chloride 98 mmol/L (98-107); Glucose 286 mg/dL (74-99); Magnesium 2.2 mg/dL (1.6-2.3); Non-African American GFR(CKD) 41 (>60 ml/min/1.73 sqM); Potassium 3.8 mmol/L (3.5-5.1); Sodium 136 mmol/L (137-145); Total Bilirubin 0.3 mg/dL (0.2-1.3); Total Protein 6.6 g/dL (6.3-8.2)
[2023-02-03 22:30] LABS: HGB 9.1 gm/dL (13.0-17.5)
--- NOTE | 2023-02-03 23:04 | XR ---
EXAMINATION TYPE: XR chest 2V DATE OF EXAM: 02/03/2023 10:13 PM COMPARISON: Chest radiographs from 10/18/2022 TECHNIQUE: XR chest 2V Frontal and lateral views of the chest. CLINICAL INDICATION:Male, 73 years old with history of difficulty breathing; FINDINGS: Lungs/Pleura: There is no evidence of pleural effusion, focal consolidation, or pneumothorax. Pulmonary vascularity: Unremarkable. Heart/mediastinum: Cardiomediastinal silhouette is prominent in size. Atherosclerotic calcifications are seen in the aorta. Musculoskeletal: No acute osseous pathology. Midline sternotomy wires are noted. IMPRESSION: No acute cardiopulmonary disease/process. No significant change from 10/18/2022
[2023-02-04] MEDS ORDERED: NALOXONE 0.4 MG/ML 1 ML VIAL IV PRN (00:12)
[2023-02-04] MEDS ORDERED: FUROSEMIDE 10 MG/ML 4 ML VIAL IV STA (00:12)
[2023-02-04] MEDS ORDERED: ASPIRIN 81 MG PO STA (00:12)
--- NOTE | 2023-02-04 00:13 | ED ---
General Adult HPI - General Chief complaint: Shortness of Breath Stated complaint: Shortness of Breath Time Seen by Provider: 02/03/23 21:23 Source: patient, RN notes reviewed, old records reviewed Mode of arrival: ambulatory Limitations: no limitations - History of Present Illness Initial comments: Patient is a 73-year-old male who presents emergency Department complaining of increased dyspnea. Has been ongoing for multiple weeks. Does have a history of congestive heart failure. Was seen here last month for a GI bleed. Has been improving since. Denies any further GI bleeding since discharge. However states that he has been having increased shortness of breath at home. Denies any dark stools. Denies any melena. Denies any bright red blood per rectum. Denies any hematemesis. Is not concerning for GI bleeding, as he is having no symptoms of that. States that he has continued to have exertional shortness of breath that has been worsening, even since before his last admission. Sensory further evaluation at this time. Endorses some mild worsening orthopnea. Denies PND. Endorses possible mild worsening lower extremity pitting edema. Endorses a dry cough. Denies any fevers or chills. Denies any chest pain. Denies any nausea and vomiting. His no abdominal pain. Denies diarrhea. Presents here for further evaluation at this time. - Related Data Home Medications Medication Instructions Recorded Confirmed allopurinoL [Zyloprim] 100 mg PO DAILY 03/16/15 01/14/23 Nitroglycerin Sl Tabs [Nitrostat] 0.4 mg SL Q5M PRN 05/12/16 01/14/23 Montelukast [Singulair] 10 mg PO DAILY 08/31/17 01/14/23 Ranolazine [Ranexa] 500 mg PO BID 08/31/17 01/14/23 Pravastatin Sodium 80 mg PO HS 01/15/19 01/14/23 Empagliflozin [Jardiance] 12.5 mg PO DAILY 08/04/21 01/14/23 Cholecalciferol (Vitamin D3) 125 mcg PO HS 02/10/22 01/14/23 [Vitamin D3 (125 MCG = 5,000 IU)] Magnesium Oxide [Magnesium] 1,000 mg PO DAILY@1200 02/10/22 01/14/23 Metoprolol Succinate (ER) [Toprol 100 mg PO BID 02/10/22 01/14/23 XL] Pantoprazole [Protonix] 40 mg PO BID 02/10/22 01/14/23 Aspirin EC [Ecotrin Low Dose] 81 mg PO Q48H 06/20/22 01/14/23 Simethicone [Gas-X] 125 mg PO QID PRN 10/18/22 01/14/23 Cyanocobalamin [Vitamin B-12 1,000 mcg SQ Q60D 10/19/22 01/14/23 Injection] Clopidogrel [Plavix] 75 mg PO DAILY 01/14/23 01/14/23 Furosemide [Lasix] 20 mg PO HS 01/14/23 01/14/23 Furosemide [Lasix] 40 mg PO DAILY 01/14/23 01/14/23 Insulin NPH Human Isophane 64 units SQ DAILY 01/14/23 01/14/23 [Novolin N] Previous Rx's Medication Instructions Recorded polyethylene glycoL 3350 [Miralax] 17 gm PO DAILY packet 01/17/23 Allergies Allergy/AdvReac Type Severity Reaction Status Date / Time Sulfa (Sulfonamide Allergy Rash/Hives Verified 02/03/23 20:51 Antibiotics) sulfamethoxazole Allergy Rash/Hives Verified 02/03/23 20:51 [From Bactrim] trimethoprim [From Bactrim] Allergy Rash/Hives Verified 02/03/23 20:51 Review of Systems ROS Statement: Those systems with pertinent positive or pertinent negative responses have been documented in the HPI. Review of Systems: CONST: Denies fever EYES: Denies blurry vision ENT: Denies nasal congestion C/V: Denies Chest pain RESP: Endorses exertional dyspnea GI: Denies abdominal pain : Denies dysuria SKIN: Denies rash. MSK: Denies joint pain. NEURO: Denies headache ROS Other: All systems not noted in ROS Statement are negative. Past Medical History Past Medical History: Atrial Fibrillation, Coronary Artery Disease (CAD), Chest Pain / Angina, Heart Failure, Diabetes Mellitus, GERD/Reflux, GI Bleed, Hyperlipidemia, Hypertension, Myocardial Infarction (HI), Osteoarthritis (OA), Renal Disease, Vascular Disorder Additional Past Medical History / Comment(s): IDDN type II, CKD stage III, re ctal bleed with anemia, PAD, caratid artery disease, chronic low back pain/bilateral hip pain, past r foot gout, benign colon polyps Last Myocardial Infarction Date:: 09/2016, 06/20/22 History of Any Multi-Drug Resistant Organisms: None Reported Past Surgical History: Cholecystectomy, Coronary Bypass/CABG, Heart Catheterizat ion, Heart Catheterization With Stent, Orthopedic Surgery, Tonsillectomy Additional Past Surgical History / Comment(s): Multiple peripheral revascularization procedures/stents/arthrectomies/ballooning, multiple aortagrams with runoffs, JOIE, , 2005 CABG 3 vessel, EGD, colonos copies/polypectomies, cyst on back drained. Past Anesthesia/Blood Transfusion Reactions: No Reported Reaction Additional Past Anesthesia/Blood Transfusion Reaction / Comment(s): Pt has received blood in past without reaction. Date of Last Stent Placement:: 2013 Past Psychological History: No Psychological Hx Reported Smoking Status: Former smoker Past Alcohol Use History: None Reported Past Drug Use History: None Reported - Past Family History Father Family Medical History: Myocardial Infarction (HI) Additional Family Medical History / Comment(s): He had a HI in his 30s and had CABG in his 50s. Mother Family Medical History: Pulmonary Embolus General Exam - General Exam Comments Initial Comments: General: Appears in no acute distress. HEAD: Normal with no signs of head trauma. EYES: PERRLA, EOMI, conjunctiva normal, no discharge. ENT: Hearing grossly intact, normal oropharynx. RESPIRATORY: Clear breath sounds bilaterally. No wheezes, rales, or rhonchi. No hypoxia. No increased work of breathing. Ambulatory pulse ox she has no significant hypoxia. C/V: Regular rate and rhythm. S1 and S2 auscultated, symmetrical bilateral lower extremity pitting edema, peripheral pulses 2+ and intact throughout ABD: Abd is soft, nontender, nondistended EXT: Normal range of motion, no obvious deformity SKIN: No rashes or lesions observed on exposed skin. NEURO: Alert and oriented 4. Limitations: no limitations Course Vital Signs 02/03/23 02/03/23 02/04/23 20:49 23:00 02:00 Temperature 98.8 F Pulse Rate 93 75 82 Respiratory 18 18 20 Rate Blood Pressure 181/72 163/72 122/55 O2 Sat by Pulse 98 97 98 Oximetry Medical Decision Making - Medical Decision Making Was pt. sent in by a medical professional or institution (, PA, CAR CUSTOMIZER, urgent care, hospital, or halfway...) When possible be specific @ -No Did you speak to anyone other than the patient for history (EMS, parent, family, police, friend...)? What history was obtained from this source @ -No Did you review nursing and triage notes (agree or disagree)? Why? @ -I reviewed and agree with nursing and triage notes Were old charts reviewed (outside hosp., previous admission, EMS record, old EKG, old radiological studies, urgent care reports/EKG's, halfway records)? Report findings @ -Reviewed old charts from December 2022 Differential Diagnosis (chest pain, altered mental status, abdominal pain women, abdominal pain men, vaginal bleeding, weakness, fever, dyspnea, syncope, headache, dizziness, GI bleed, back pain, seizure, CVA, palpatations, mental health, musculoskeletal)? @ -Differential Dyspnea: Coronary syndrome, arrhythmia, tamponade, asthma, COPD, pulmonary embolism, pneumonia, pneumothorax, pulmonary effusion, anaphylaxis, diabetic ketoacidosis, flailed chest, pulmonary contusion, diaphragmatic rupture, anemia, neuromuscular, this is not meant to be an all-inclusive list. EKG interpreted by me (3pts min.). @ -As above X-rays interpreted by me (1pt min.). @ -X-ray as interpreted by myself reveals bilateral pulmonary vascular congestion, however does appear similar to a chest x-ray from September 2022 when the patient had an elevated BNP. CT interpreted by me (1pt min.). @ -None done U/S interpreted by me (1pt. min.). @ -None done What testing was considered but not performed or refused? (CT, X-rays, U/S, labs)? Why? @ -None What meds were considered but not given or refused? Why? @ -None Did you discuss the management of the patient with other professionals (professionals i.e. DrMitch, PA, CAR CUSTOMIZER, lab, RT, psych nurse, neonatal social worker, logger all round, teacher, ordnance officer, case advocate)? Give summary @ -Discussed with Dr. Dr. Chen who accepted the patient. Was smoking cessation discussed for >3mins.? @ -No Was critical care preformed (if so, how long)? @ -No Were there social determinants of health that impacted care today? How? (Homelessness, low income, unemployed, alcoholism, drug addiction, transportation, low edu. Level, literacy, decrease access to med. care, care home, rehab)? @ -No Was there de-escalation of care discussed even if they declined (Discuss DNR or withdrawal of care, Hospice)? DNR status @ -No What co-morbidities impacted this encounter? (DM, HTN, Smoking, COPD, CAD, Cancer, CVA, ARF, Chemo, Hep., AIDS, mental health diagnosis, sleep apnea, morbid obesity)? @ -CHF, CAD, prior episodes of GI bleeds Was patient admitted / discharged? Hospital course, mention meds given and route, prescriptions, significant lab abnormalities, going to OR and other pertinent info. @ -Based on the patient's presentation and physical exam, presents complaining of mild chest tightness, as well as exertional shortness of breath. Vital signs within acceptable limits. Exam and clinical picture do support possible mild CHF exacerbation. We will obtain cardiopulmonary workup. He was in agreement with this plan. He'll be given an aspirin 324 mg. Patient does have a history of lower GI bleed, however is having no symptoms. States that he is only having brown stools now. Previously was having darker stools which is how they diagnosed him. His no hematemesis. No abdominal pain. Vital signs within acceptable limits. He was in agreement this plan. Imaging shows possible mild pulmonary vascular congestion that does appear somewhat chronic. EKG shows no evidence of acute ischemia. Patient's labs do show a mild anemia, with a hemoglobin of 9.1. Patient's hemoglobin since May 2022 have ranged anywhere from 8.9-12.8. This does appear to be within this range. He is having no complaints of GI bleeding at this time. Could be secondary to a dilutional component. Patient's troponin is unremarkable. Patient is an elevated BUN and creatinine in the setting of CK D. BNP is elevated above baseline for the patient's age at 2600. At this time, patient is having a dry cough, with somewhat worsening lower extremity pitting edema as well as mild worsening orthopnea with exertional dyspnea that is subjective. Vital signs remain stable on ambulation. Workup is remarkable for a slightly decreased hemoglobin at this time however it has been within his normal range over the last year. No obvious signs of GI bleed. Does have a history of CHF and labs do support a possible mild CHF exacerbation. Patient also states that the exertional dyspnea has been ongoing since he received his watchman procedure on 01/09/2023. States it has been worsening over that time. States that when he was treated for his blood loss anemia, he had minimal improvement in this, and has started to notice a decline still. I discussed results with the patient, I would like to admit him for echo, as well as repeat blood work tomorrow morning. He was in agreement this plan. We will continue to trend the troponin, as well as obtain repeat CBC tomorrow morning. I will provide him with a dose of Lasix. Echo will be ordered. Cardiology will be consulted. Patient was in agreement this plan. I low suspicion for acute blood loss anemia causing his acute dyspnea as the dyspnea seems to be ongoing for longer time despite his chronic anemia however cannot definitively ruled out at this time. No obvious GI bleeding, as his prior symptoms of dark tarry stools have since resolved. I spoke with the admitting physician, Dr. Dr. Chen who accepted the patient. Undiagnosed new problem with uncertain prognosis? @ -No Drug Therapy requiring intensive monitoring for toxicity (Heparin, Nitro, Insulin, Cardizem)? @ -No Were any procedures done? @ -No Diagnosis/symptom? @ -CHF, dyspnea Acute, or Chronic, or Acute on Chronic? @ -Acute on chronic Uncomplicated (without systemic symptoms) or Complicated (systemic symptoms)? @ -Complicated Side effects of treatment? @ -No Exacerbation, Progression, or Severe Exacerbation? @ -Exacerbation Poses a threat to life or bodily function? How? (Chest pain, USA, HI, pneumonia, PE, COPD, DKA, ARF, appy, cholecystitis, CVA, Diverticulitis, Homicidal, Suicidal, threat to staff... and all critical care pts) @ -yes Diagnosis/symptom? @ -Anemia Acute, or Chronic, or Acute on Chronic? @ -Acute on Chronic Uncomplicated (without systemic symptoms) or Complicated (systemic symptoms)? @ -Uncomplicated Side effects of treatment? @ -none Exacerbation, Progression, or Severe Exacerbation] @ -no Poses a threat to life or bodily function? @ -no - Lab Data Result diagrams: 02/03/23 21:24 02/03/23 21:24 Lab Results 02/03/23 02/03/23 02/03/23 Range/Units 21:24 21:24 21:24 WBC 6.4 (3.8-10.6) k/uL RBC 3.76 L (4.30-5.90) m/uL Hgb 9.1 L D (13.0-17.5) gm/dL Hct 30.6 L (39.0-53.0) % MCV 81.2 (80.0-100.0) fL MCH 24.1 L (25.0-35.0) pg MCHC 29.7 L (31.0-37.0) g/dL RDW 19.5 H (11.5-15.5) % Plt Count 201 (150-450) k/uL MPV 7.7 Neutrophils % 65 % Lymphocytes % 24 % Monocytes % 6 % Eosinophils % 2 % Basophils % 0 % Neutrophils # 4.2 (1.3-7.7) k/uL Lymphocytes # 1.5 (1.0-4.8) k/uL Monocytes # 0.4 (0-1.0) k/uL Eosinophils # 0.1 (0-0.7) k/uL Basophils # 0.0 (0-0.2) k/uL Hypochromasia Marked Poikilocytosis Slight Anisocytosis Slight Microcytosis Slight PT 10.8 (9.0-12.0) sec INR 1.0 (<1.2) APTT 22.2 (22.0-30.0) sec Sodium 136 L (137-145) mmol/L Potassium 3.8 (3.5-5.1) mmol/L Chloride 98 (98-107) mmol/L Carbon Dioxide 25 (22-30) mmol/L Anion Gap 13 mmol/L BUN 24 H (9-20) mg/dL Creatinine 1.62 H (0.66-1.25) mg/dL Est GFR (CKD-EPI)AfAm 48 (>60 ml/min/1.73 sqM) Est GFR (CKD-EPI)NonAf 41 (>60 ml/min/1.73 sqM) Glucose 286 H (74-99) mg/dL Calcium 8.5 (8.4-10.2) mg/dL Magnesium 2.2 (1.6-2.3) mg/dL Total Bilirubin 0.3 (0.2-1.3) mg/dL AST 20 (17-59) U/L ALT 16 (4-49) U/L Alkaline Phosphatase 94 (38-126) U/L Troponin I (0.000-0.034) ng/mL NT-Pro-B Natriuret Pep pg/mL Total Protein 6.6 (6.3-8.2) g/dL Albumin 3.9 (3.5-5.0) g/dL Influenza Type A (PCR) (Not Detectd) Influenza Type B (PCR) (Not Detectd) RSV (PCR) (Not Detectd) SARS-CoV-2 (PCR) (Not Detectd) 02/03/23 02/03/23 02/03/23 Range/Units 21:24 21:51 21:51 WBC (3.8-10.6) k/uL RBC (4.30-5.90) m/uL Hgb (13.0-17.5) gm/dL Hct (39.0-53.0) % MCV (80.0-100.0) fL MCH (25.0-35.0) pg MCHC (31.0-37.0) g/dL RDW (11.5-15.5) % Plt Count (150-450) k/uL MPV Neutrophils % % Lymphocytes % % Monocytes % % Eosinophils % % Basophils % % Neutrophils # (1.3-7.7) k/uL Lymphocytes # (1.0-4.8) k/uL Monocytes # (0-1.0) k/uL Eosinophils # (0-0.7) k/uL Basophils # (0-0.2) k/uL Hypochromasia Poikilocytosis Anisocytosis Microcytosis PT (9.0-12.0) sec INR (<1.2) APTT (22.0-30.0) sec Sodium (137-145) mmol/L Potassium (3.5-5.1) mmol/L Chloride (98-107) mmol/L Carbon Dioxide (22-30) mmol/L Anion Gap mmol/L BUN (9-20) mg/dL Creatinine (0.66-1.25) mg/dL Est GFR (CKD-EPI)AfAm (>60 ml/min/1.73 sqM) Est GFR (CKD-EPI)NonAf (>60 ml/min/1.73 sqM) Glucose (74-99) mg/dL Calcium (8.4-10.2) mg/dL Magnesium (1.6-2.3) mg/dL Total Bilirubin (0.2-1.3) mg/dL AST (17-59) U/L ALT (4-49) U/L Alkaline Phosphatase (38-126) U/L Troponin I 0.021 (0.000-0.034) ng/mL NT-Pro-B Natriuret Pep 2600 pg/mL Total Protein (6.3-8.2) g/dL Albumin (3.5-5.0) g/dL Influenza Type A (PCR) Not Detected (Not Detectd) Influenza Type B (PCR) Not Detected (Not Detectd) RSV (PCR) Not Detected (Not Detectd) SARS-CoV-2 (PCR) Not Detected (Not Detectd) - EKG Data -: EKG Interpreted by Me EKG Comments: 12-lead Electrocardiogram Interpretation Note EKG was reviewed and interpreted by myself. 12-lead ECG performed at 2053 is interpreted by me as revealing normal sinus rhythm at a rate of 84 beats per minute. Keyes is normal. UT interval is 180 ms, QRS duration is 141 ms, QTc is 464 ms.. There were no obvious acute ST or T wave abnormalities to suggest myocardial ischemia or injury. R wave progression across the precordium was satisfactory. By my interpretation this EKG is non-diagnostic for acute ischemia. Relatively unchanged with EKG from October 2022. Disposition Clinical Impression: CHF (congestive heart failure), Anemia, Dyspnea Disposition: ADMITTED IP TO THIS HOSP Condition: Stable Time of Disposition: 23:45
[2023-02-04] MEDS ORDERED: HEPARIN SODIUM,PORCINE/PF 5,000 UNIT/0.5 ML SYRINGE SQ SCH (08:00)
[2023-02-04] MEDS: FUROSEMIDE 10 MG/ML 4 ML VIAL IV SCH ×2 (08:10→21:35)
[2023-02-04] MEDS ORDERED: NITROGLYCERIN SL TABS 0.4 MG TAB SUBLINGUAL PRN (10:58)
[2023-02-04] MEDS ORDERED: SIMETHICONE 80 MG CHEWABLE PO PRN (10:58)
[2023-02-04 11:30] LABS: Glucose,Whole Blood 305 mg/dL (70-110)
--- NOTE | 2023-02-04 11:34 | P.HPIM ---
History of Present Illness H&P Date: 02/04/23 Kevin Mcknight, is a 73-year-old male who presented to [facility] emergency room with a chief complaint of worsening shortness of breath. He was evaluated in the emergency room vital examination on presentation revealed a temperature of 98.8 pulse 93 respiration 18 blood pressure 181/72 pulse ox 98% on room air Laboratory data revealed a white blood count of 6.4 hemoglobin 9.1 platelet count 201 sodium 136 potassium 3.8 BUN 24 creatinine 1.6 to glucose 286 Testing in the emergency room revealed chest x-ray done in the emergency room revealed no acute cardiopulmonary process, EKG done in the emergency room revealed sinus rhythm with intraventricular conduction delay Patient was admitted to medical floor for further evaluation and treatment Past medical history is significant for history of coronary artery disease with history of coronary artery bypass graft surgery, history of atrial fibrillation, status post watchman procedure 1 month ago, history of peripheral arterial disease, history of chronic kidney disease, recent admission about 3 weeks ago for rectal bleeding, history of hypertension, history of hyperlipidemia, and history of insulin-dependent diabetes mellitus On review of systems patient is alert and oriented 3 in no apparent distress he is complaining of shortness of breath with any activity otherwise he denies any complaints there is no fever or chills no headache or dizziness no chest pain no cough no palpitation no nausea or vomiting no abdominal pain no diarrhea no blood in the stools no burning with urination no frequency or urgency and no hematuria. Past Medical History Past Medical History: Atrial Fibrillation, Coronary Artery Disease (CAD), Chest Pain / Angina, Heart Failure, Diabetes Mellitus, GERD/Reflux, GI Bleed, Hyperlipidemia, Hypertension, Myocardial Infarction ([place]), Osteoarthritis (OA), Renal Disease, Vascular Disorder Additional Past Medical History / Comment(s): IDDN type II, CKD stage III, rectal bleed with anemia, PAD, caratid artery disease, chronic low back pain/bilateral hip pain, past r foot gout, benign colon polyps Last Myocardial Infarction Date:: 09/2016, 06/20/22 History of Any Multi-Drug Resistant Organisms: None Reported Past Surgical History: Cholecystectomy, Coronary Bypass/CABG, Heart Catheterization, Heart Catheterization With Stent, Orthopedic Surgery, Tonsillectomy Additional Past Surgical History / Comment(s): Multiple peripheral revascularization procedures/stents/arthrectomies/ballooning, multiple aortagrams with runoffs, JOIE, , 2006 CABG 3 vessel, EGD, colonoscopies/polypectomies, cyst on back drained. Past Anesthesia/Blood Transfusion Reactions: No Reported Reaction Additional Past Anesthesia/Blood Transfusion Reaction / Comment(s): Pt has received blood in past without reaction. Date of Last Stent Placement:: 2013 Past Psychological History: No Psychological Hx Reported Smoking Status: Former smoker Past Alcohol Use History: None Reported Past Drug Use History: None Reported - Past Family History Father Family Medical History: Myocardial Infarction ([place]) Additional Family Medical History / Comment(s): He had a [place] in his 30s and had CABG in his 50s. Mother Family Medical History: Pulmonary Embolus Medications and Allergies Home Medications Medication Instructions Recorded Confirmed Type allopurinoL [Zyloprim] 100 mg PO DAILY 03/16/15 02/04/23 History Nitroglycerin Sl Tabs [Nitrostat] 0.4 mg SL Q5M PRN 05/12/16 02/04/23 History Montelukast [Singulair] 10 mg PO DAILY 08/31/17 02/04/23 History Ranolazine [Ranexa] 500 mg PO BID 08/31/17 02/04/23 History Pravastatin Sodium 80 mg PO HS 01/15/19 02/04/23 History Empagliflozin [Jardiance] 12.5 mg PO DAILY 08/04/21 02/04/23 History Cholecalciferol (Vitamin D3) 125 mcg PO HS 02/10/22 02/04/23 History [Vitamin D3 (125 MCG = 5,000 IU)] Magnesium Oxide [Magnesium] 1,000 mg PO DAILY@1200 02/10/22 02/04/23 History Metoprolol Succinate (ER) [Toprol 100 mg PO BID 02/10/22 02/04/23 History XL] Pantoprazole [Protonix] 40 mg PO BID 02/10/22 02/04/23 History Aspirin EC [Ecotrin Low Dose] 81 mg PO Q48H 06/20/22 02/04/23 History Simethicone [Gas-X] 125 mg PO QID PRN 10/18/22 02/04/23 History Cyanocobalamin [Vitamin B-12 1,000 mcg SQ Q60D 10/19/22 02/04/23 History Injection] Clopidogrel [Plavix] 75 mg PO DAILY 01/14/23 02/04/23 History Furosemide [Lasix] 20 mg PO HS 01/14/23 02/04/23 History Furosemide [Lasix] 40 mg PO DAILY 01/14/23 02/04/23 History Insulin NPH Human Isophane 64 units SQ DAILY 01/14/23 02/04/23 History [Novolin N] polyethylene glycoL 3350 [Miralax] 17 gm PO DAILY packet 01/17/23 02/04/23 Rx Allergies Allergy/AdvReac Type Severity Reaction Status Date / Time Sulfa (Sulfonamide Allergy Rash/Hives Verified 02/04/23 10:51 Antibiotics) sulfamethoxazole Allergy Rash/Hives Verified 02/04/23 10:51 [From Bactrim] trimethoprim [From Bactrim] Allergy Rash/Hives Verified 02/04/23 10:51 Physical Exam Vitals: Vital Signs Temp Pulse Resp BP Pulse Ox 02/04/23 07:18 61 18 111/48 98 02/04/23 06:34 60 18 123/65 98 02/04/23 03:43 66 20 131/59 96 02/04/23 02:00 82 20 122/55 98 02/03/23 23:00 75 18 163/72 97 02/03/23 20:49 98.8 F 93 18 181/72 98 Intake and Output 02/03/23 02/04/23 02/04/23 22:59 06:59 14:59 Other: Weight 115.666 kg In general patient is alert and oriented x 3 in no distress HEENT head normocephalic and atraumatic Neck is supple no JVD no goiter no lymphadenopathy no carotid bruit Chest examination reveals a few scattered rhonchi in both lung bradley no wheezing. Cardiac exam reveals regular heart sounds S1 and S2 no gallops no murmurs Abdomen is soft nontender no organomegaly with normal bowel sounds Extremity exam reveals no edema no cyanosis or clubbing Neurological examination reveals no gross focal deficits Results CBC & Chem 7: 02/03/23 21:24 02/03/23 21:24 Labs: Abnormal Lab Results - Last 24 Hours (Table) 02/03/23 02/03/23 Range/Units 21:24 21:24 RBC 3.76 L (4.30-5.90) m/uL Hgb 9.1 L D (13.0-17.5) gm/dL Hct 30.6 L (39.0-53.0) % MCH 24.1 L (25.0-35.0) pg MCHC 29.7 L (31.0-37.0) g/dL RDW 19.5 H (11.5-15.5) % Sodium 136 L (137-145) mmol/L BUN 24 H (9-20) mg/dL Creatinine 1.62 H (0.66-1.25) mg/dL Glucose 286 H (74-99) mg/dL Assessment and Plan Plan: Worsening shortness of breath likely related to acute exacerbation of congestive heart failure, patient was started on IV Lasix in the emergency room echocardiogram was ordered and cardiology consultation was requested. Underlying history of coronary artery disease with history of coronary artery bypass graft surgery Underlying history of atrial fibrillation status post watchman procedure 1 months ago Underlying history of rectal bleeding with admission about 3 weeks ago Underlying history of hypertension Underlying history of hyperlipidemia Underlying history of insulin-dependent diabetes mellitus At this time patient will be admitted to telemetry floor He was started on IV Lasix Home medications reviewed and reordered Echocardiogram ordered cardiology consultation requested Will follow closely
[2023-02-04] MEDS: MONTELUKAST 10 MG TAB PO SCH (11:58)
[2023-02-04] MEDS: MAGNESIUM OXIDE 400 MG TAB PO SCH (11:58)
[2023-02-04] MEDS: polyethylene glycoL 3350 17 GM POWD.PACK PO SCH (11:58)
[2023-02-04] MEDS: allopurinoL 100 MG TAB PO SCH (11:59)
[2023-02-04] MEDS: CLOPIDOGREL 75 MG TAB PO SCH (11:59)
[2023-02-04] MEDS: METOPROLOL SUCCINATE (ER) 100 MG TAB.ER.24H PO SCH ×2 (11:59→21:35)
[2023-02-04] MEDS: RANOLAZINE 500 MG TAB.ER.12H PO SCH ×2 (11:59→21:35)
--- NOTE | 2023-02-04 12:03 | P.CRDCN ---
History of Present Illness History of present illness: HISTORY OF PRESENTING ILLNESS This is a pleasant 73-year-old male past medical history significant for paroxysmal atrial fibrillation with GI bleed s/p recent Watchman procedure, coronary artery disease s/p CABG (VALLE to LAD, SVG to OM, SVG to PDA branch of RCA) in 2005, PCI ostium and mid circumflex in 2014, hypertension, type 2 diabetes, dyslipidemia, former nicotine dependence, peripheral vascular disease with severe bilateral SFA disease, atherectomy and prior stenting with Dr. Porras and Dr. Meeks. He follows in the office with Dr. Hendricks patient admits to increased dyspnea with exertion and chest tightness with mild exertion. He states this has been fairly persistent over the last 3-6 months. He admits sometimes this is worsened if he does have GI bleed and his hemoglobin significantly decrease. Previous hemoglobin ranged 1011 and he is currently 9. He did undergo recent Watchman procedure proximally 3 weeks ago and follow-up in office. He denies any significant increase in lower extremity edema however does have trace lower extremity edema. He was given IV Lasix with very minimal change in symptoms. He has been on Ranexa, metoprolol and blood pressures borde rline. When he presented with blood pressure somewhat increased however since has been lower in the systolic 100-120 range. EKG shows sinus rhythm with normal axis with diffuse ST depressions inferior lateral leads. Blood work shows hemoglobin 9.1, cr 1.6, troponin 0.02, 0.018, 0.019. He admits he has not been able to be as active secondary to significant dyspnea with minimal exertion. * Last Cardiac Catheterization 10/2016 revealed total occlusion of the [place]zanita circumflex that was stented in March 2015, appears chronic occlusion. Vein graft to the PDA is patent, PDA itself is diffusely diseased. Vein graft obtuse marginal/PLV branch of circumflex and the VALLE to LAD are widely paten t. REVIEW OF SYSTEMS At the time of my exam: CONSTITUTIONAL: Denies fever or chills. + Generalized weakness and fatigue CARDIOVASCULAR: +chest pain, +shortness of breath, Denies orthopnea, PND or pal pitations. RESPIRATORY: Denies cough. GASTROINTESTINAL: Denies abdominal pain, diarrhea, constipation, nausea or vomiting. MUSCULOSKELETAL: Denies myalgias. NEUROLOGIC: Denies numbness, tingling, headache or weakness. ENDOCRINE: Denies fatigue, weight change, polydipsia or polyurina. GENITOURINARY: Denies burning, hematuria or urgency with micturation. HEMATOLOGIC: +history of anemia and bleeding. PHYSICAL EXAMINATION Vitals reviewed CONSTITUTIONAL: No apparent distress. HEENT: Head is normocephalic. Pupils are equal, round. Sclerae anicteric. Mucous membranes of the mouth are moist. No JVD. No carotid bruit. CHEST EXAMINATION: Lungs are diminished bilaterally to auscultation. No chest wall tenderness is noted on palpation or with deep breathing. HEART EXAMINATION: Irregular rate and rhythm. S1, S2 heard. No murmurs, gallops or rub. ABDOMEN: Soft, nontender. Positive bowel sounds. EXTREMITIES: 2+ peripheral pulses, trace bilateral lower extremity edema and no calf tenderness. SKIN: warm, dry NEUROLOGIC EXAMINATION: Patient is awake, alert and oriented x3. ASSESSMENT Acute on chronic diastolic heart failure Dyspnea and chest pain with exertion consistent with angina, worsening over last 3-6 months Generalized fatigue Paroxysmal atrial fibrillation sinus rhythm Coronary artery disease s/p CABG (VALLE to LAD, SVG to OM, SVG to PDA branch of RCA) in 2005, PCI ostium and mid circumflex in 2014 Hypertension Type 2 diabetes Dyslipidemia Former nicotine dependence Peripheral vascular disease with severe bilateral SFA disease, atherectomy and prior stenting with Dr. Porras and Dr. Meeks, most recently underwent angiogran, SFA arthrectomy and left SFA PTBA on 03/2022 CKD S/p Watchman Anemia, mildly decreased from prior levels PLAN Patient with main symptoms of dyspnea with minimal exertion as well as chest tightness with minimal exertion. Does have mild hematoma and likely small component of heart failure. Symptoms more concerning for angina however and continue with current antianginals. May be somewhat exacerbated by mild decrease in hemoglobin from 10 range down to 9. Monitor and consider transfusing if symptomatic. Otherwise check Lexiscan stress test Monday to evaluate for any significant ischemia. May consider heart catheterization even with his CKD given significantly symptomatic and on maximum amount of antianginals. Further recs to follow. Continue aspirin and plavix s/p Watchman Past Medical History Past Medical History: Atrial Fibrillation, Coronary Artery Disease (CAD), Chest Pain / Angina, Heart Failure, Diabetes Mellitus, GERD/Reflux, GI Bleed, Hyperlipidemia, Hypertension, Myocardial Infarction ([place]), Osteoarthritis (OA), Renal Disease, Vascular Disorder Additional Past Medical History / Comment(s): IDDN type II, CKD stage III, rectal bleed with anemia, PAD, caratid artery disease, chronic low back pain/bilateral hip pain, past r foot gout, benign colon polyps Last Myocardial Infarction Date:: 09/2016, 06/20/22 History of Any Multi-Drug Resistant Organisms: None Reported Past Surgical History: Cholecystectomy, Coronary Bypass/CABG, Heart Catheterization, Heart Catheterization With Stent, Orthopedic Surgery, Tonsillectomy Additional Past Surgical History / Comment(s): Multiple peripheral revascularization procedures/stents/arthrectomies/ballooning, multiple aortagrams with runoffs, JOIE, , 2005 CABG 3 vessel, EGD, colonoscopies/polypectomies, cyst on back drained. Past Anesthesia/Blood Transfusion Reactions: No Reported Reaction Additional Past Anesthesia/Blood Transfusion Reaction / Comment(s): Pt has received blood in past without reaction. Date of Last Stent Placement:: 2013 Past Psychological History: No Psychological Hx Reported Smoking Status: Former smoker Past Alcohol Use History: None Reported Past Drug Use History: None Reported - Past Family History Father Family Medical History: Myocardial Infarction ([place]) Additional Family Medical History / Comment(s): He had a [place] in his 30s and had CABG in his 50s. Mother Family Medical History: Pulmonary Embolus Medications and Allergies Home Medications Medication Instructions Recorded Confirmed Type allopurinoL [Zyloprim] 100 mg PO DAILY 03/16/15 02/04/23 History Nitroglycerin Sl Tabs [Nitrostat] 0.4 mg SL Q5M PRN 05/12/16 02/04/23 History Montelukast [Singulair] 10 mg PO DAILY 08/31/17 02/04/23 History Ranolazine [Ranexa] 500 mg PO BID 08/31/17 02/04/23 History Pravastatin Sodium 80 mg PO HS 01/15/19 02/04/23 History Empagliflozin [Jardiance] 12.5 mg PO DAILY 08/04/21 02/04/23 History Cholecalciferol (Vitamin D3) 125 mcg PO HS 02/10/22 02/04/23 History [Vitamin D3 (125 MCG = 5,000 IU)] Magnesium Oxide [Magnesium] 1,000 mg PO DAILY@1200 02/10/22 02/04/23 History Metoprolol Succinate (ER) [Toprol 100 mg PO BID 02/10/22 02/04/23 History XL] Pantoprazole [Protonix] 40 mg PO BID 02/10/22 02/04/23 History Aspirin EC [Ecotrin Low Dose] 81 mg PO Q48H 06/20/22 02/04/23 History Simethicone [Gas-X] 125 mg PO QID PRN 10/18/22 02/04/23 History Cyanocobalamin [Vitamin B-12 1,000 mcg SQ Q60D 10/19/22 02/04/23 History Injection] Clopidogrel [Plavix] 75 mg PO DAILY 01/14/23 02/04/23 History Furosemide [Lasix] 20 mg PO HS 01/14/23 02/04/23 History Furosemide [Lasix] 40 mg PO DAILY 01/14/23 02/04/23 History Insulin NPH Human Isophane 64 units SQ DAILY 01/14/23 02/04/23 History [Novolin N] polyethylene glycoL 3350 [Miralax] 17 gm PO DAILY packet 01/17/23 02/04/23 Rx Allergies Allergy/AdvReac Type Severity Reaction Status Date / Time Sulfa (Sulfonamide Allergy Rash/Hives Verified 02/04/23 10:51 Antibiotics) sulfamethoxazole Allergy Rash/Hives Verified 02/04/23 10:51 [From Bactrim] trimethoprim [From Bactrim] Allergy Rash/Hives Verified 02/04/23 10:51 Physical Exam Vitals: Vital Signs Temp Pulse Resp BP Pulse Ox 02/04/23 07:18 61 18 111/48 98 02/04/23 06:34 60 18 123/65 98 02/04/23 03:43 66 20 131/59 96 02/04/23 02:00 82 20 122/55 98 02/03/23 23:00 75 18 163/72 97 02/03/23 20:49 98.8 F 93 18 181/72 98 Intake and Output 02/03/23 02/04/23 02/04/23 22:59 06:59 14:59 Other: Weight 115.666 kg Results 02/03/23 21:24 02/03/23 21:24 Cardiac Enzymes 02/03/23 02/03/23 02/04/23 Range/Units 21:24 21:24 04:42 AST 20 (17-59) U/L Troponin I 0.021 0.018 (0.000-0.034) ng/mL 02/04/23 Range/Units 07:11 AST (17-59) U/L Troponin I 0.019 (0.000-0.034) ng/mL Coagulation 02/03/23 Range/Units 21:24 PT 10.8 (9.0-12.0) sec APTT 22.2 (22.0-30.0) sec CBC 02/03/23 Range/Units 21:24 WBC 6.4 (3.8-10.6) k/uL RBC 3.76 L (4.30-5.90) m/uL Hgb 9.1 L D (13.0-17.5) gm/dL Hct 30.6 L (39.0-53.0) % Plt Count 201 (150-450) k/uL Comprehensive Metabolic Panel 02/03/23 Range/Units 21:24 Sodium 136 L (137-145) mmol/L Potassium 3.8 (3.5-5.1) mmol/L Chloride 98 (98-107) mmol/L Carbon Dioxide 25 (22-30) mmol/L BUN 24 H (9-20) mg/dL Creatinine 1.62 H (0.66-1.25) mg/dL Glucose 286 H (74-99) mg/dL Calcium 8.5 (8.4-10.2) mg/dL AST 20 (17-59) U/L ALT 16 (4-49) U/L Alkaline Phosphatase 94 (38-126) U/L Total Protein 6.6 (6.3-8.2) g/dL Albumin 3.9 (3.5-5.0) g/dL Current Medications Generic Name Dose Route Start Last Admin Trade Name Freq PRN Reason Stop Dose Admin Allopurinol 100 mg 02/04/23 11:00 Allopurinol 100 Mg Tab PO DAILY [facility] Aspirin 81 mg 02/05/23 09:00 Aspirin 81 Mg PO Q48H [facility] Cholecalciferol 125 mcg 02/04/23 21:00 Cholecalciferol 125 Mcg (5000 Iu) Tablet PO HS [facility] Clopidogrel Bisulfate 75 mg 02/04/23 11:00 Clopidogrel 75 Mg Tab PO DAILY [facility] Cyanocobalamin 1,000 mcg 02/25/23 09:00 Cyanocobalamin 1,000 Mcg/Ml 1 Ml Vial SQ Q60D [facility] Dapagliflozin 5 mg 02/04/23 11:00 Dapagliflozin Propanediol 5 Mg Tablet PO DAILY [facility] Furosemide 40 mg 02/04/23 09:00 02/04/23 08:10 Furosemide 10 Mg/Ml 4 Ml Vial IV 40 mg Q12HR [facility] Administration Insulin Human NPH 64 unit 02/04/23 11:15 Insulin Nph 100 Unit/Ml 10 Ml Vial SQ DAILY [facility] Magnesium Oxide 800 mg 02/04/23 12:00 Magnesium Oxide 400 Mg Tab PO DAILY@1200 [facility] Metoprolol Succinate 100 mg 02/04/23 11:15 Metoprolol Succinate (Er) 100 Mg Tab.Er.24h PO BID [facility] Montelukast Sodium 10 mg 02/04/23 11:15 Montelukast 10 Mg Tab PO DAILY [facility] Naloxone HCl 0.2 mg 02/04/23 00:12 Naloxone 0.4 Mg/Ml 1 Ml Vial IV Q2M PRN Opioid Reversal Nitroglycerin 0.4 mg 02/04/23 10:58 Nitroglycerin Sl Tabs 0.4 Mg Tab SUBLINGUAL Q5M PRN Chest Pain Pantoprazole Sodium 40 mg 02/04/23 21:00 Pantoprazole 40 Mg Tablet PO BID [facility] Polyethylene Glycol 17 gm 02/04/23 11:15 Polyethylene Glycol 3350 17 Gm Powd.Pack PO DAILY [facility] Pravastatin Sodium 80 mg 02/04/23 21:00 Pravastatin Sodium 80 Mg Tab PO HS [facility] Ranolazine 500 mg 02/04/23 11:15 Ranolazine 500 Mg Tab.Er.12h PO BID [facility] Simethicone 120 mg 02/04/23 10:58 Simethicone 80 Mg Chewable PO QID PRN gas/bloating Intake and Output 02/03/23 02/04/23 02/04/23 22:59 06:59 14:59 Other: Weight 115.666 kg 02/03/23 21:24 02/03/23 21:24
[2023-02-04] MEDS: INSULIN NPH 100 UNIT/ML 10 ML VIAL SQ SCH (12:08)
[2023-02-04] MEDS: DAPAGLIFLOZIN PROPANEDIOL 5 MG TABLET PO SCH (12:08)
--- NOTE | 2023-02-04 17:50 | CA ---
Transthoracic Echo Report Name: Kevin Mcknight Age: 73 Gender: M : 1950 Exam Date: 02/04/2023 13:12 Exam Location: [facility] Ht (in): 69 Wt (lb): 255 Ordering Physician: Jorge Rivera MD Attending/Referring Phys: Congressional Representative Dinorah Krueger RDCS Procedure CPT: Indications: chf Cardiac Hx: Technical Quality: Technically difficult study Contrast 1: Lumason Total Dose (mL): 4 Contrast 2: Total Dose (mL): MEASUREMENTS (Male / Female) Normal Values 2D ECHO LV Diastolic Volume MOD BP 182.1 cm??? 67 - 155 / 56 - 104 cm??? LV Systolic Volume MOD BP 94.9 cm??? 22 - 58 / 19 - 49 cm??? LV Ejection Fraction MOD BP 47.9 % >= 55 % LV Cardiac Index MOD BP 2557.2 cm???/min???m??? LV Diastolic Volume MOD 4C 154.5 cm??? LV Systolic Volume MOD 4C 82.5 cm??? LV Ejection Fraction MOD 4C 46.6 % LV Cardiac Index MOD 4C 2112.5 cm???/min???m??? LV Diastolic Length 4C 8.7 cm LV Systolic Length 4C 7.9 cm LV Diastolic Volume MOD 2C 187.9 cm??? LV Systolic Volume MOD 2C 108.1 cm??? LV Ejection Fraction MOD 2C 42.4 % LV Cardiac Index MOD 2C 2338.8 cm???/min???m??? LV Diastolic Length 2C 10.0 cm LV Systolic Length 2C 8.1 cm LA Volume 74.7 cm??? 18 - 58 / 22 - 52 cm??? DOPPLER AV Peak Velocity 134.1 cm/s AV Peak Gradient 7.2 mmHg AV Mean Velocity 96.8 cm/s AV Mean Gradient 4.2 mmHg AV Velocity Time Integral 34.3 cm LVOT Peak Velocity 59.6 cm/s LVOT Peak Gradient 1.4 mmHg LVOT Velocity Time Integral 15.2 cm MV Area PHT 3.8 cm??? Mitral E Point Velocity 147.4 cm/s Mitral A Point Velocity 114.2 cm/s Mitral E to A Ratio 1.3 MV Deceleration Time 198.5 ms MV E' Velocity 4.6 cm/s Mitral E to MV E' Ratio 32.2 TR Peak Velocity 390.1 cm/s TR Peak Gradient 60.9 mmHg Right Ventricular Systolic Press 65.9 mmHg FINDINGS Left Ventricle Moderately increased left ventricular diastolic volume. Severely increased left ventricular systolic volume. Mildly decreased left ventricular ejection fraction. Left ventricular ejection fraction is estimated at 45%. Right Ventricle Right ventricle not well visualized. Severe pulmonary hypertension. Right ventricular systolic pressure estimated at 66 mm hg. Right Atrium Normal right atrial size. Left Atrium Moderately increased left atrial volume. Mildly increased left atrial area. Mitral Valve Structurally normal mitral valve. Mild mitral annular calcification. Moderate mitral regurgitation. Aortic Valve No aortic valve stenosis or regurgitation. Tricuspid Valve Structurally normal tricuspid valve. Moderate tricuspid regurgitation. Pulmonic Valve Pulmonic valve not well visualized. Pericardium No pericardial effusion. Aorta Aortic root and proximal ascending aorta not well visualized. CONCLUSIONS Moderate increased left ventricular wall thickness Left ventricular ejection fraction 45% RVSP 66 Moderate mitral regurgitation Moderate tricuspid regurgitation No pericardial effusion Previewed by: Dr. Angel Cheney DO (Electronically Signed) Final Date: 04 February 2023 17:49
[2023-02-04] MEDS: CHOLECALCIFEROL 125 MCG (5000 IU) TABLET PO SCH (21:35)
[2023-02-04] MEDS: PANTOPRAZOLE 40 MG TABLET PO SCH (21:35)
[2023-02-04] MEDS: PRAVASTATIN SODIUM 80 MG TAB PO SCH (21:35)
[2023-02-05 07:36] LABS: Glucose,Whole Blood 153 mg/dL (70-110)
[2023-02-05] MEDS: CLOPIDOGREL 75 MG TAB PO SCH (08:33)
[2023-02-05] MEDS: FUROSEMIDE 10 MG/ML 4 ML VIAL IV SCH ×2 (08:33→20:54)
[2023-02-05] MEDS: ASPIRIN 81 MG PO SCH (08:33)
[2023-02-05] MEDS: allopurinoL 100 MG TAB PO SCH (08:33)
[2023-02-05] MEDS: PANTOPRAZOLE 40 MG TABLET PO SCH ×2 (08:39→20:54)
[2023-02-05] MEDS: polyethylene glycoL 3350 17 GM POWD.PACK PO SCH (08:39)
[2023-02-05] MEDS: MONTELUKAST 10 MG TAB PO SCH (08:39)
[2023-02-05] MEDS: RANOLAZINE 500 MG TAB.ER.12H PO SCH ×2 (08:40→20:54)
[2023-02-05 08:56] LABS: African American GFR (CKD) 43 (>60 ml/min/1.73 sqM); Anion Gap 7 mmol/L; Blood Urea Nitrogen 26 mg/dL (9-20); Calcium 8.5 mg/dL (8.4-10.2); Carbon Dioxide 34 mmol/L (22-30); Chloride 97 mmol/L (98-107); Glucose 134 mg/dL (74-99); Non-African American GFR(CKD) 38 (>60 ml/min/1.73 sqM); Potassium 4.2 mmol/L (3.5-5.1); Sodium 138 mmol/L (137-145)
[2023-02-05 09:13] LABS: Anisocytosis Slight; Basophils % (A) 0 %; Eosinophils # (A) 0.1 k/uL (0-0.7); Eosinophils % (A) 2 %; HCT 31.4 % (39.0-53.0); HGB 9.2 gm/dL (13.0-17.5); Hypochromasia Marked; Lymphocytes # (A) 1.5 k/uL (1.0-4.8); Lymphocytes % (A) 25 %; MCHC 29.2 g/dL (31.0-37.0); MCV 82.5 fL (80.0-100.0); Mean Platelet Volume 7.5; Microcytosis Slight; Monocytes # (A) 0.3 k/uL (0-1.0); Monocytes % (A) 6 %; Neutrophils # (A) 3.8 k/uL (1.3-7.7); Neutrophils % (A) 64 %; Platelet Count 214 k/uL (150-450); Poikilocytosis Slight; RBC 3.81 m/uL (4.30-5.90)
[2023-02-05] MEDS: METOPROLOL SUCCINATE (ER) 100 MG TAB.ER.24H PO SCH ×2 (09:14→20:54)
[2023-02-05] MEDS: DAPAGLIFLOZIN PROPANEDIOL 5 MG TABLET PO SCH (09:14)
[2023-02-05] MEDS: INSULIN NPH 100 UNIT/ML 10 ML VIAL SQ SCH (09:14)
--- NOTE | 2023-02-05 09:16 | P.PN ---
Subjective HISTORY OF PRESENTING ILLNESS This is a pleasant 73-year-old male past medical history significant for paroxysmal atrial fibrillation with GI bleed s/p recent Watchman procedure, coronary artery disease s/p CABG (VALLE to LAD, SVG to OM, SVG to PDA branch of RCA) in 2005, PCI ostium and mid circumflex in 2014, hypertension, type 2 diabetes, dyslipidemia, former nicotine dependence, peripheral vascular disease with severe bilateral SFA disease, atherectomy and prior stenting with Dr. Porras and Dr. Meeks. He follows in the office with Dr. Hendricks patient admits to increased dyspnea with exertion and chest tightness with mild exertion. He sta dylan this has been fairly persistent over the last 3-6 months. He admits sometimes this is worsened if he does have GI bleed and his hemoglobin significantly decrease. Previous hemoglobin ranged 1011 and he is currently 9. He did undergo recent Watchman procedure proximally 3 weeks ago and follow-up in office. He denies any significant increase in lower extremity edema however does have trace lower extremity edema. He was given IV Lasix with very minimal change in symptoms. He has been on Ranexa, metoprolol and blood pressures borderline. When he presented with blood pressure somewhat increased however since has been lower in the systolic 100-120 range. EKG shows sinus rhythm with normal axis with diffuse ST depressions inferior lateral leads. Blood work shows hemoglobin 9.1, cr 1.6, troponin 0.02, 0.018, 0.019. He admits he has not been able to be as active secondary to significant dyspnea with minimal exertion. * Last Cardiac Catheterization 10/2016 revealed total occlusion of the [place] circumflex that was stented in March 2015, appears chronic occlusion. Vein graft to the PDA is patent, PDA itself is diffusely diseased. Vein graft obtuse marginal/PLV branch of circumflex and the VALLE to LAD are widely patent. 02/05 Patient seen and examined. Patient has been receiving Lasix 40 mg IV every 12 hours and admits to good urine output. Creatinine relatively stable, minimally elevated from 1.6-1.7 however appears at his baseline. He admits to feeling somewhat better in terms of the shortness breath however has not been that active. Scheduled for Lexiscan stress test tomorrow. PHYSICAL EXAMINATION Vitals reviewed CONSTITUTIONAL: No apparent distress. HEENT: Head is normocephalic. Pupils are equal, round. Sclerae anicteric. Mucous membranes of the mouth are moist. No JVD. No carotid bruit. CHEST EXAMINATION: Lungs are diminished bilaterally to auscultation. No chest wall tenderness is noted on palpation or with deep breathing. HEART EXAMINATION: Irregular rate and rhythm. S1, S2 heard. No murmurs, gallops or rub. ABDOMEN: Soft, nontender. Positive bowel sounds. EXTREMITIES: 2+ peripheral pulses, trace bilateral lower extremity edema and no calf tenderness. SKIN: warm, dry NEUROLOGIC EXAMINATION: Patient is awake, alert and oriented x3. ASSESSMENT Acute on chronic diastolic heart failure Dyspnea and chest pain with exertion consistent with angina, worsening over last 3-6 months Generalized fatigue Paroxysmal atrial fibrillation sinus rhythm Coronary artery disease s/p CABG (VALLE to LAD, SVG to OM, SVG to PDA branch of RCA) in 2005, PCI ostium and mid circumflex in 2014 Hypertension Type 2 diabetes Dyslipidemia Former nicotine dependence Peripheral vascular disease with severe bilateral SFA disease, atherectomy and prior stenting with Dr. Porras and Dr. Meeks, most recently underwent angiogran, SFA arthrectomy and left SFA PTBA on 03/2022 CKD S/p Watchman Anemia, mildly decreased from prior levels PLAN Some of symptoms appear related to heart failure and continue with diuresis. Additionally however has been having significant chest tightness with minimal exertion consistent with angina. Check Lexiscan stress test to further evaluate. If still severely symptomatic despite already maximized on antianginals, may consider heart catheterization even despite his EKG with minimal contrast dye. Continue aspirin and Plavix, s/p Watchman. Monitor Hgb. Objective - Vital Signs Vital signs: Vital Signs Temp 97.9 F 02/05/23 07:00 Pulse 58 L 02/05/23 07:00 Resp 16 02/05/23 07:00 BP 120/63 02/05/23 07:00 Pulse Ox 97 02/05/23 07:00 FiO2 Intake & Output 02/04/23 02/05/23 02/05/23 18:59 06:59 18:59 Weight 115.666 kg Other: Voiding Method Toilet # Voids 2 - Labs CBC & Chem 7: 02/05/23 07:21 02/05/23 07:21 Labs: Abnormal Lab Results - Last 24 Hours (Table) 02/04/23 02/05/23 02/05/23 Range/Units 11:28 07:21 07:21 RBC 3.81 L (4.30-5.90) m/uL Hgb 9.2 L (13.0-17.5) gm/dL Hct 31.4 L (39.0-53.0) % MCH 24.0 L (25.0-35.0) pg MCHC 29.2 L (31.0-37.0) g/dL RDW 19.0 H (11.5-15.5) % Chloride 97 L (98-107) mmol/L Carbon Dioxide 34 H (22-30) mmol/L BUN 26 H (9-20) mg/dL Creatinine 1.75 H (0.66-1.25) mg/dL Glucose 134 H (74-99) mg/dL POC Glucose (mg/dL) 305 H (70-110) mg/dL 02/05/23 Range/Units 07:34 RBC (4.30-5.90) m/uL Hgb (13.0-17.5) gm/dL Hct (39.0-53.0) % MCH (25.0-35.0) pg MCHC (31.0-37.0) g/dL RDW (11.5-15.5) % Chloride (98-107) mmol/L Carbon Dioxide (22-30) mmol/L BUN (9-20) mg/dL Creatinine (0.66-1.25) mg/dL Glucose (74-99) mg/dL POC Glucose (mg/dL) 153 H (70-110) mg/dL
[2023-02-05] MEDS: MAGNESIUM OXIDE 400 MG TAB PO SCH (11:59)
[2023-02-05 12:14] LABS: Glucose,Whole Blood 231 mg/dL (70-110)
--- NOTE | 2023-02-05 12:46 | P.PN ---
Subjective Progress Note Date: 02/05/23 Kevin Mcknight, is a 73-year-old male who presented to [facility] emergency room with a chief complaint of worsening shortness of breath. He was evaluated in the emergency room vital examination on presentation revealed a temperature of 98.8 pulse 93 respiration 18 blood pressure 181/72 pulse ox 98% on room air Laboratory data revealed a white blood count of 6.4 hemoglobin 9.1 platelet count 201 sodium 136 potassium 3.8 BUN 24 creatinine 1.6 to glucose 286 Testing in the emergency room revealed chest x-ray done in the emergency room revealed no acute cardiopulmonary process, EKG done in the emergency room revealed sinus rhythm with intraventricular conduction delay Patient was admitted to medical floor for further evaluation and treatment Past medical history is significant for history of coronary artery disease with history of coronary artery bypass graft surgery, history of atrial fibrillation, status post watchman procedure 1 month ago, history of peripheral arterial disease, history of chronic kidney disease, recent admission about 3 weeks ago for rectal bleeding, history of hypertension, history of hyperlipidemia, and history of insulin-dependent diabetes mellitus On review of systems patient is alert and oriented 3 in no apparent distress he is complaining of shortness of breath with any activity otherwise he denies any complaints there is no fever or chills no headache or dizziness no chest pain no cough no palpitation no nausea or vomiting no abdominal pain no diarrhea no blood in the stools no burning with urination no frequency or urgency and no he maturia. On 02/05/2023 patient was seen and examined on the medical floor he is alert and oriented 3 in no apparent distress he reports some improvement in his shortness of breath he is complaining of some chest tightness otherwise he denies any complaints there is no fever or chills no headache or dizziness no cough no nausea or vomiting no abdominal pain no diarrhea no blood in the stools no b urning with urination no frequency or urgency and no hematuria. Cardiology consult reviewed, plan is for a stress test tomorrow, will continue to follow closely Objective - Vital Signs Vital signs: Vital Signs Temp 97.9 F 02/05/23 07:00 Pulse 58 L 02/05/23 08:00 Resp 16 02/05/23 08:00 BP 120/63 02/05/23 07:00 Pulse Ox 97 02/05/23 07:00 FiO2 Intake & Output 06/06/1902/05/23 02/05/23 18:59 06:59 18:59 Intake Total 579 Balance 579 Weight 115.666 kg Intake: Oral 579 Other: Voiding Method Toilet Toilet # Voids 2 - Exam In general patient is alert and oriented x 3 in no distress HEENT head normocephalic and atraumatic Neck is supple no JVD no goiter no lymphadenopathy no carotid bruit Chest examination reveals a few scattered rhonchi in both lung bradley no wheezing. Cardiac exam reveals regular heart sounds S1 and S2 no gallops no murmurs Abdomen is soft nontender no organomegaly with normal bowel sounds Extremity exam reveals no edema no cyanosis or clubbing Neurological examination reveals no gross focal deficits - Labs CBC & Chem 7: 02/05/23 07:21 02/05/23 07:21 Labs: Abnormal Lab Results - Last 24 Hours (Table) 02/04/23 02/05/23 02/05/23 Range/Units 11:28 07:21 07:21 RBC 3.81 L (4.30-5.90) m/uL Hgb 9.2 L (13.0-17.5) gm/dL Hct 31.4 L (39.0-53.0) % MCH 24.0 L (25.0-35.0) pg MCHC 29.2 L (31.0-37.0) g/dL RDW 19.0 H (11.5-15.5) % Chloride 97 L (98-107) mmol/L Carbon Dioxide 34 H (22-30) mmol/L BUN 26 H (9-20) mg/dL Creatinine 1.75 H (0.66-1.25) mg/dL Glucose 134 H (74-99) mg/dL POC Glucose (mg/dL) 305 H (70-110) mg/dL 02/05/23 Range/Units 07:34 RBC (4.30-5.90) m/uL Hgb (13.0-17.5) gm/dL Hct (39.0-53.0) % MCH (25.0-35.0) pg MCHC (31.0-37.0) g/dL RDW (11.5-15.5) % Chloride (98-107) mmol/L Carbon Dioxide (22-30) mmol/L BUN (9-20) mg/dL Creatinine (0.66-1.25) mg/dL Glucose (74-99) mg/dL POC Glucose (mg/dL) 153 H (70-110) mg/dL Assessment and Plan Plan: Worsening shortness of breath likely related to acute exacerbation of congestive heart failure, patient was started on IV Lasix in the emergency room echocardiogram was ordered and cardiology consultation was requested. Underlying history of coronary artery disease with history of coronary artery bypass graft surgery Underlying history of atrial fibrillation status post watchman procedure 1 months ago Underlying history of rectal bleeding with admission about 3 weeks ago Underlying history of hypertension Underlying history of hyperlipidemia Underlying history of insulin-dependent diabetes mellitus At this time patient will be admitted to telemetry floor He was started on IV Lasix Home medications reviewed and reordered Echocardiogram ordered cardiology consultation requested Will follow closely
[2023-02-05] MEDS ORDERED: DEXTROSE 50% SYRINGE 50 ML IVP PRN ×2 (15:19)
[2023-02-05 17:25] LABS: Glucose,Whole Blood 160 mg/dL (70-110)
[2023-02-05] MEDS: INSULIN ASPART (NovoLOG) 100 UNIT/ML VIAL SQ SCH ×2 (18:03→20:54)
[2023-02-05 20:50] LABS: Glucose,Whole Blood 167 mg/dL (70-110)
[2023-02-05] MEDS: PRAVASTATIN SODIUM 80 MG TAB PO SCH (20:54)
[2023-02-05] MEDS: CHOLECALCIFEROL 125 MCG (5000 IU) TABLET PO SCH (20:54)
[2023-02-06] MEDS ORDERED: CAFFEINE CITRATE 60 MG/3 ML VIAL IV PRN (05:00)
[2023-02-06] MEDS ORDERED: AMINOPHYLLINE 500 MG/20 ML VIAL IV PRN (05:00)
[2023-02-06] MEDS ORDERED: REGADENOSON 0.4 MG/5 ML SYRINGE IV PRN (05:00)
[2023-02-06 06:13] LABS: Glucose,Whole Blood 154 mg/dL (70-110)
[2023-02-06] MEDS: INSULIN ASPART (NovoLOG) 100 UNIT/ML VIAL SQ SCH ×4 (06:18→21:34)
[2023-02-06 06:44] LABS: Anisocytosis Slight; Basophils % (A) 0 %; Eosinophils # (A) 0.1 k/uL (0-0.7); Eosinophils % (A) 2 %; HCT 30.7 % (39.0-53.0); HGB 8.9 gm/dL (13.0-17.5); Hypochromasia Marked; Lymphocytes # (A) 1.4 k/uL (1.0-4.8); Lymphocytes % (A) 23 %; MCH 23.4 pg (25.0-35.0); MCHC 28.9 g/dL (31.0-37.0); MCV 80.9 fL (80.0-100.0); Mean Platelet Volume 7.6; Microcytosis Slight; Monocytes # (A) 0.4 k/uL (0-1.0); Monocytes % (A) 7 %; Neutrophils # (A) 3.8 k/uL (1.3-7.7); Neutrophils % (A) 66 %; Platelet Count 210 k/uL (150-450); Poikilocytosis Slight; RBC 3.79 m/uL (4.30-5.90); RDW 18.4 % (11.5-15.5); WBC 5.9 k/uL (3.8-10.6)
[2023-02-06 06:58] LABS: ALT 13 U/L (4-49); AST 14 U/L (17-59); African American GFR (CKD) 41 (>60 ml/min/1.73 sqM); Albumin 3.4 g/dL (3.5-5.0); Albumin/Globulin Ratio 1.3; Alkaline Phosphatase 92 U/L (38-126); Anion Gap 6 mmol/L; Blood Urea Nitrogen 29 mg/dL (9-20); Calcium 8.4 mg/dL (8.4-10.2); Carbon Dioxide 35 mmol/L (22-30); Chloride 96 mmol/L (98-107); Globulin 2.6 g/dL; Glucose 127 mg/dL (74-99); Non-African American GFR(CKD) 35 (>60 ml/min/1.73 sqM); Potassium 3.8 mmol/L (3.5-5.1); Sodium 137 mmol/L (137-145); Total Bilirubin 0.4 mg/dL (0.2-1.3)
--- NOTE | 2023-02-06 09:37 | P.PN ---
Subjective Progress Note Date: 02/06/23 HISTORY OF PRESENTING ILLNESS This is a pleasant 73-year-old male past medical history significant for par oxysmal atrial fibrillation with GI bleed s/p recent Watchman procedure, coronary artery disease s/p CABG (VALLE to LAD, SVG to OM, SVG to PDA branch of RCA) in 2005, PCI ostium and mid circumflex in 2014, hypertension, type 2 diabetes, dyslipidemia, former nicotine dependence, peripheral vascular disease with severe bilateral SFA disease, atherectomy and prior stenting with Dr. Porras and Dr. Meeks. He follows in the office with Dr. Hendricks patient admits to increased dyspnea with exertion and chest tightness with mild exertion. He states this has been fairly persistent over the last 3-6 months. He admits sometimes this is worsened if he does have GI bleed and his hemoglobin significantly decrease. Previous hemoglobin ranged 1011 and he is currently 9. He did undergo recent Watchman procedure proximally 3 weeks ago and follow-up in office. He denies any significant increase in lower extremity edema however does have trace lower extremity edema. He was given IV Lasix with very minimal change in symptoms. He has been on Ranexa, metoprolol and blood pressures borderline. When he presented with blood pressure somewhat increased however since has been lower in the systolic 100-120 range. EKG shows sinus rhythm with normal axis with diffuse ST depressions inferior lateral leads. Blood work shows hemoglobin 9.1, cr 1.6, troponin 0.02, 0.018, 0.019. He admits he has not been able to be as active secondary to significant dyspnea with minimal exertion. * Last Cardiac Catheterization 10/2016 revealed total occlusion of the [place] circumflex that was stented in March 2015, appears chronic occlusion. Vein graft to the PDA is patent, PDA itself is diffusely diseased. Vein graft obtuse marginal/PLV branch of circumflex and the VALLE to LAD are widely patent. 02/05 Patient seen and examined. Patient has been receiving Lasix 40 mg IV every 12 hours and admits to good urine output. Creatinine relatively stable, minimally elevated from 1.6-1.7 however appears at his baseline. He admits to feeling somewhat better in terms of the shortness breath however has not been that active. Scheduled for Lexiscan stress test tomorrow. 02/06 Patient is seen today in follow-up. He denies having any chest pain, shortness of breath, no palpitations, no lightheadedness or dizziness. Patient is scheduled for Lexiscan stress test today and maintained on his home cardiac medications and on IV Lasix 40 mg every 12 hours. Repeat blood work reveals hemoglobin of 8.9, potassium 3.8, BUN 29 creatinine 1.85. PHYSICAL EXAMINATION Vitals reviewed CONSTITUTIONAL: No apparent distress. HEENT: Head is normocephalic. Pupils are equal, round. Sclerae anicteric. Mucous membranes of the mouth are moist. No JVD. No carotid bruit. CHEST EXAMINATION: Lungs are diminished bilaterally to auscultation. No chest wall tenderness is noted on palpation or with deep breathing. HEART EXAMINATION: Irregular rate and rhythm. S1, S2 heard. No murmurs, gallops or rub. ABDOMEN: Soft, nontender. Positive bowel sounds. EXTREMITIES: 2+ peripheral pulses, trace bilateral lower extremity edema and no calf tenderness. SKIN: warm, dry NEUROLOGIC EXAMINATION: Patient is awake, alert and oriented x3. ASSESSMENT Acute on chronic diastolic heart failure Dyspnea and chest pain with exertion consistent with angina, worsening over last 3-6 months Generalized fatigue Paroxysmal atrial fibrillation sinus rhythm Coronary artery disease s/p CABG (VALLE to LAD, SVG to OM, SVG to PDA branch of RCA) in 2005, PCI ostium and mid circumflex in 2014 Hypertension Type 2 diabetes Dyslipidemia Former nicotine dependence Peripheral vascular disease with severe bilateral SFA disease, atherectomy and prior stenting with Dr. Porras and Dr. Meeks, most recently underwent angiogran, SFA arthrectomy and left SFA PTBA on 03/2022 CKD S/p Watchman Anemia, mildly decreased from prior levels PLAN Some of symptoms appear related to heart failure and continue with diuresis. Additionally however has been having significant chest tightness with minimal exertion consistent with angina. Check Lexiscan stress test to further evaluate. If still severely symptomatic despite already maximized on antianginals, may consider heart catheterization even despite his EKG with minimal contrast dye. Continue aspirin and Plavix, s/p Watchman. Monitor Hgb. Nurse practitioner note has been reviewed, I agree with the documented findings and plan of care. Patient was seen and examined. Objective - Vital Signs Vital signs: Vital Signs Temp 97.8 F 02/06/23 02:00 Pulse 79 02/06/23 02:00 Resp 16 02/06/23 02:00 BP 156/63 02/06/23 02:00 Pulse Ox 98 02/06/23 02:00 FiO2 Intake & Output 02/05/23 02/06/23 02/06/23 18:59 06:59 18:59 Intake Total 1139 0 Balance 1139 0 Intake: Oral 1139 0 Other: Voiding Method Toilet Toilet # Voids 3 2 # Bowel Movements 2 - Labs CBC & Chem 7: 02/06/23 06:04 02/06/23 06:04 Labs: Abnormal Lab Results - Last 24 Hours (Table) 02/05/23 02/05/23 02/05/23 Range/Units 07:21 07:21 12:13 RBC 3.81 L (4.30-5.90) m/uL Hgb 9.2 L (13.0-17.5) gm/dL Hct 31.4 L (39.0-53.0) % MCH 24.0 L (25.0-35.0) pg MCHC 29.2 L (31.0-37.0) g/dL RDW 19.0 H (11.5-15.5) % Chloride 97 L (98-107) mmol/L Carbon Dioxide 34 H (22-30) mmol/L BUN 26 H (9-20) mg/dL Creatinine 1.75 H (0.66-1.25) mg/dL Glucose 134 H (74-99) mg/dL POC Glucose (mg/dL) 231 H (70-110) mg/dL AST (17-59) U/L Total Protein (6.3-8.2) g/dL Albumin (3.5-5.0) g/dL 02/05/23 02/05/23 02/06/23 Range/Units 17:23 20:48 06:04 RBC 3.79 L (4.30-5.90) m/uL Hgb 8.9 L (13.0-17.5) gm/dL Hct 30.7 L (39.0-53.0) % MCH 23.4 L (25.0-35.0) pg MCHC 28.9 L (31.0-37.0) g/dL RDW 18.4 H (11.5-15.5) % Chloride (98-107) mmol/L Carbon Dioxide (22-30) mmol/L BUN (9-20) mg/dL Creatinine (0.66-1.25) mg/dL Glucose (74-99) mg/dL POC Glucose (mg/dL) 160 H 167 H (70-110) mg/dL AST (17-59) U/L Total Protein (6.3-8.2) g/dL Albumin (3.5-5.0) g/dL 02/06/23 02/06/23 Range/Units 06:04 06:12 RBC (4.30-5.90) m/uL Hgb (13.0-17.5) gm/dL Hct (39.0-53.0) % MCH (25.0-35.0) pg MCHC (31.0-37.0) g/dL RDW (11.5-15.5) % Chloride 96 L (98-107) mmol/L Carbon Dioxide 35 H (22-30) mmol/L BUN 29 H (9-20) mg/dL Creatinine 1.85 H (0.66-1.25) mg/dL Glucose 127 H (74-99) mg/dL POC Glucose (mg/dL) 154 H (70-110) mg/dL AST 14 L (17-59) U/L Total Protein 6.0 L (6.3-8.2) g/dL Albumin 3.4 L (3.5-5.0) g/dL
[2023-02-06] MEDS: CLOPIDOGREL 75 MG TAB PO SCH (10:26)
[2023-02-06] MEDS: PANTOPRAZOLE 40 MG TABLET PO SCH ×2 (10:26→20:04)
[2023-02-06] MEDS: RANOLAZINE 500 MG TAB.ER.12H PO SCH ×2 (10:26→20:04)
[2023-02-06] MEDS: polyethylene glycoL 3350 17 GM POWD.PACK PO SCH (10:27)
[2023-02-06] MEDS: allopurinoL 100 MG TAB PO SCH (10:27)
[2023-02-06] MEDS: FUROSEMIDE 10 MG/ML 4 ML VIAL IV SCH ×2 (10:27→20:04)
[2023-02-06] MEDS: MONTELUKAST 10 MG TAB PO SCH (10:27)
[2023-02-06] MEDS: DAPAGLIFLOZIN PROPANEDIOL 5 MG TABLET PO SCH (10:28)
[2023-02-06] MEDS: INSULIN NPH 100 UNIT/ML 10 ML VIAL SQ SCH (10:28)
[2023-02-06] MEDS: METOPROLOL SUCCINATE (ER) 100 MG TAB.ER.24H PO SCH ×2 (10:29→20:04)
--- NOTE | 2023-02-06 11:44 | CA ---
Lexiscan Nuclear Stress Test Report Name: Kevin Mcknight Exam Date: 02/06/2023 09:38 Exam Location: [place] Stress Ht (in): 69 Wt (lb): 255 BSA: 2.29 Ordering Phys: Angel Cheney DO Referring Phys: Christy,, Technologist: Frank Crane Age: 73 Gender: M : 1950 Procedure CPT: Indications: Reflex order-Stress test ICD-10 Codes: Patient History: Medications: SEE CHART Meds past 24 hrs: Pretest Chest Pain: STRESS TEST Lexiscan Protocol Exercise Duration (min:sec): 02:[address] Depressions (mm): Angina Score: Cm Score: Resting HR (bpm): 65 Peak HR (bpm): 75 Resting BP (mmHg): 132 / 55 Peak BP (mmHg): 132 / 56 MPHR: 146 Target HR: 124 % MPHR: 51 METS: 1.0 Total Dose: Peak Dose: Atropine: Double Product: 9900 BP Response: Stress Termination: PROTOCOL COMPLETE Stress Symptoms: NO SYMPTOMS Stress Summary: ECG ANALYSIS Resting ECG: Sinus rhythm. Normal conduction. Ventricular premature contraction. Non-specific ST-T wave changes. Stress ECG: No ECG changes from baseline with Lexiscan infusion. CONCLUSIONS No ECG evidence of ischemia with Lexiscan infusion. Nuclear test results to follow. Dr. Mickey Doe MD (Electronically Signed) Final Date: 06 February 2023 11:43
--- NOTE | 2023-02-06 11:49 | NM ---
EXAMINATION TYPE: NM stress lexiscan cardiolite DATE OF EXAM: 02/06/2023 COMPARISON: NONE CLINICAL INDICATION: Male, 73 years old with history of chest pain; TECHNIQUE: After the intravenous administration of 10.3 mCi Tc 99m Sestamibi - Cardiolite resting SP ECT images acquired 45 minutes post injection. The patient received 0.4mg Lexiscan, 26.1 mCi Tc 99m Sestamibi - Stress images obtained [address] injection FINDINGS: Review of stress and rest SPECT images demonstrates reversible decreased perfusion anterior apical wa ll for which I cannot exclude stress-induced ischemia. Fixed defect cardiac apex. Gated analysis show s hypokinetic wall motion with an estimated left ventricular ejection fraction of 36 %. IMPRESSION: 1. Stress-induced ischemia is not excluded anteroapical wall. 2. Hypokinesia with ejection fraction diminished at 36%.
[2023-02-06 12:05] LABS: Glucose,Whole Blood 193 mg/dL (70-110)
[2023-02-06] MEDS: MAGNESIUM OXIDE 400 MG TAB PO SCH (12:36)
[2023-02-06 17:14] LABS: Glucose,Whole Blood 146 mg/dL (70-110)
[2023-02-06 17:24] LABS: Appearance,Urine Clear (Clear); Bilirubin,Urine Negative (Negative); Blood,Urine Negative (Negative); Color,Urine Yellow; Glucose,Urine (UA) 4+ (Negative); Ketones,Urine Negative (Negative); Leukocyte Esterase,Urine Negative (Negative); Nitrite,Urine Negative (Negative); Protein,Urine Negative (Negative); Specific Gravity,Urine 1.014 (1.001-1.035); Urobilinogen,Urine <2.0 mg/dL (<2.0)
[2023-02-06] MEDS: PRAVASTATIN SODIUM 80 MG TAB PO SCH (20:04)
[2023-02-06] MEDS: CHOLECALCIFEROL 125 MCG (5000 IU) TABLET PO SCH (20:04)
[2023-02-06 21:32] LABS: Glucose,Whole Blood 228 mg/dL (70-110)
[2023-02-07 02:23] LABS: Microalbumin Creatinine Ratio <13 mg/g Cr (0-30); Urine Creatinine 93.7 mg/dL (39.0-259.0)
[2023-02-07 02:32] VITALS: RESP 16; TEMP 98.3
[2023-02-07 02:55] LABS: % Iron Saturation 3.48 (15.00-50.00)
[2023-02-07 05:44] LABS: Glucose,Whole Blood 131 mg/dL (70-110)
[2023-02-07] MEDS: INSULIN ASPART (NovoLOG) 100 UNIT/ML VIAL SQ SCH ×2 (05:45→12:15)
[2023-02-07 06:51] LABS: Anisocytosis Slight; Basophils % (A) 0 %; Eosinophils # (A) 0.1 k/uL (0-0.7); Eosinophils % (A) 2 %; HCT 33.1 % (39.0-53.0); HGB 9.7 gm/dL (13.0-17.5); Hypochromasia Marked; Lymphocytes # (A) 2.6 k/uL (1.0-4.8); Lymphocytes % (A) 30 %; MCHC 29.3 g/dL (31.0-37.0); Mean Platelet Volume 7.3; Microcytosis Slight; Monocytes # (A) 0.5 k/uL (0-1.0); Monocytes % (A) 6 %; Neutrophils % (A) 59 %; Platelet Count 281 k/uL (150-450); Poikilocytosis Slight; RBC 4.04 m/uL (4.30-5.90); RDW 18.1 % (11.5-15.5); WBC 8.5 k/uL (3.8-10.6)
[2023-02-07 07:05] LABS: ALT 16 U/L (4-49); AST 20 U/L (17-59); African American GFR (CKD) 41 (>60 ml/min/1.73 sqM); Albumin/Globulin Ratio 1.4; Alkaline Phosphatase 106 U/L (38-126); Anion Gap 12 mmol/L; Blood Urea Nitrogen 31 mg/dL (9-20); Calcium 8.5 mg/dL (8.4-10.2); Carbon Dioxide 30 mmol/L (22-30); Chloride 96 mmol/L (98-107); Globulin 2.8 g/dL; Glucose 125 mg/dL (74-99); Magnesium 2.4 mg/dL (1.6-2.3); Non-African American GFR(CKD) 36 (>60 ml/min/1.73 sqM); Phosphorus 4.6 mg/dL (2.5-4.5); Potassium 4.2 mmol/L (3.5-5.1); Sodium 138 mmol/L (137-145); Total Bilirubin 0.5 mg/dL (0.2-1.3); Total Protein 6.8 g/dL (6.3-8.2)
[2023-02-07 07:29] VITALS: BP 134/64; PULSE 58
[2023-02-07] MEDS: polyethylene glycoL 3350 17 GM POWD.PACK PO SCH (09:07)
[2023-02-07] MEDS: RANOLAZINE 500 MG TAB.ER.12H PO SCH (09:07)
[2023-02-07] MEDS: FUROSEMIDE 10 MG/ML 4 ML VIAL IV SCH (09:07)
[2023-02-07] MEDS: ASPIRIN 81 MG PO SCH (09:07)
[2023-02-07] MEDS: MONTELUKAST 10 MG TAB PO SCH (09:07)
[2023-02-07] MEDS: allopurinoL 100 MG TAB PO SCH (09:07)
[2023-02-07] MEDS: CLOPIDOGREL 75 MG TAB PO SCH (09:07)
[2023-02-07] MEDS: PANTOPRAZOLE 40 MG TABLET PO SCH (09:07)
[2023-02-07] MEDS: METOPROLOL SUCCINATE (ER) 100 MG TAB.ER.24H PO SCH (09:09)
[2023-02-07] MEDS: DAPAGLIFLOZIN PROPANEDIOL 5 MG TABLET PO SCH (09:09)
--- NOTE | 2023-02-07 09:16 | P.PN ---
Subjective Progress Note Date: 02/06/23 Kevin Mcknight, is a 73-year-old male who presented to [facility] emergency room with a chief complaint of worsening shortness of breath. He was evaluated in the emergency room vital examination on presentation revealed a temperature of 98.8 pulse 93 respiration 18 blood pressure 181/72 pulse ox 98% on room air Laboratory data revealed a white blood count of 6.4 hemoglobin 9.1 platelet count 201 sodium 136 potassium 3.8 BUN 24 creatinine 1.6 to glucose 286 Testing in the emergency room revealed chest x-ray done in the emergency room revealed no acute cardiopulmonary process, EKG done in the emergency room revealed sinus rhythm with intraventricular conduction delay Patient was admitted to medical floor for further evaluation and treatment Past medical history is significant for history of coronary artery disease with history of coronary artery bypass graft surgery, history of atrial fibrillation, status post watchman procedure 1 month ago, history of peripheral arterial disease, history of chronic kidney disease, recent admission about 3 weeks ago for rectal bleeding, history of hypertension, history of hyperlipidemia, and history of insulin-dependent diabetes mellitus On review of systems patient is alert and oriented 3 in no apparent distress he is complaining of shortness of breath with any activity otherwise he denies any complaints there is no fever or chills no headache or dizziness no chest pain no cough no palpitation no nausea or vomiting no abdominal pain no diarrhea no blood in the stools no burning with urination no frequency or urgency and no he maturia. On 02/05/2023 patient was seen and examined on the medical floor he is alert and oriented 3 in no apparent distress he reports some improvement in his shortness of breath he is complaining of some chest tightness otherwise he denies any complaints there is no fever or chills no headache or dizziness no cough no nausea or vomiting no abdominal pain no diarrhea no blood in the stools no b urning with urination no frequency or urgency and no hematuria. Cardiology consult reviewed, plan is for a stress test tomorrow, will continue to follow closely On 02/06/2023 patient was seen and examined on the medical floor he is alert and oriented 3 in no distress there is no fever or chills no headache or dizziness no chest pain no shortness of breath no cough no nausea or vomiting no abdominal pain no diarrhea and no urinary symptoms, he is scheduled for a stress test today Will continue to follow closely. Objective - Vital Signs Vital signs: Vital Signs Temp 98.3 F 02/07/23 07:28 Pulse 58 L 02/07/23 07:28 Resp 16 02/07/23 07:28 BP 134/64 02/07/23 07:28 Pulse Ox 96 02/07/23 07:28 FiO2 Intake & Output 02/06/23 02/07/23 02/07/23 18:59 06:59 18:59 Intake Total 340 Balance 340 Intake: Oral 340 Other: Voiding Method Toilet # Voids 1 2 - Exam In general patient is alert and oriented x 3 in no distress HEENT head normocephalic and atraumatic Neck is supple no JVD no goiter no lymphadenopathy no carotid bruit Chest examination reveals a few scattered rhonchi in both lung bradley no wheezing. Cardiac exam reveals regular heart sounds S1 and S2 no gallops no murmurs Abdomen is soft nontender no organomegaly with normal bowel sounds Extremity exam reveals no edema no cyanosis or clubbing Neurological examination reveals no gross focal deficits - Labs CBC & Chem 7: 02/07/23 05:40 02/07/23 05:40 Labs: Abnormal Lab Results - Last 24 Hours (Table) 02/06/23 02/06/23 02/06/23 Range/Units 06:04 12:04 13:46 RBC (4.30-5.90) m/uL Hgb (13.0-17.5) gm/dL Hct (39.0-53.0) % MCH (25.0-35.0) pg MCHC (31.0-37.0) g/dL RDW (11.5-15.5) % Chloride (98-107) mmol/L BUN (9-20) mg/dL Creatinine (0.66-1.25) mg/dL Glucose (74-99) mg/dL POC Glucose (mg/dL) 193 H (70-110) mg/dL Hemoglobin A1c 8.0 H (<=6.0) % Phosphorus (2.5-4.5) mg/dL Magnesium (1.6-2.3) mg/dL Iron 14 L (65-175) UG/DL % Saturation 3.48 L (15.00-50.00) Urine Glucose (UA) (Negative) 02/06/23 02/06/23 02/06/23 Range/Units 16:40 17:12 21:30 RBC (4.30-5.90) m/uL Hgb (13.0-17.5) gm/dL Hct (39.0-53.0) % MCH (25.0-35.0) pg MCHC (31.0-37.0) g/dL RDW (11.5-15.5) % Chloride (98-107) mmol/L BUN (9-20) mg/dL Creatinine (0.66-1.25) mg/dL Glucose (74-99) mg/dL POC Glucose (mg/dL) 146 H 228 H (70-110) mg/dL Hemoglobin A1c (<=6.0) % Phosphorus (2.5-4.5) mg/dL Magnesium (1.6-2.3) mg/dL Iron (65-175) UG/DL % Saturation (15.00-50.00) Urine Glucose (UA) 4+ H (Negative) 02/07/23 02/07/23 02/07/23 Range/Units 05:40 05:40 05:43 RBC 4.04 L (4.30-5.90) m/uL Hgb 9.7 L (13.0-17.5) gm/dL Hct 33.1 L (39.0-53.0) % MCH 24.0 L (25.0-35.0) pg MCHC 29.3 L (31.0-37.0) g/dL RDW 18.1 H (11.5-15.5) % Chloride 96 L (98-107) mmol/L BUN 31 H (9-20) mg/dL Creatinine 1.82 H (0.66-1.25) mg/dL Glucose 125 H (74-99) mg/dL POC Glucose (mg/dL) 131 H (70-110) mg/dL Hemoglobin A1c (<=6.0) % Phosphorus 4.6 H (2.5-4.5) mg/dL Magnesium 2.4 H (1.6-2.3) mg/dL Iron (65-175) UG/DL % Saturation (15.00-50.00) Urine Glucose (UA) (Negative) Assessment and Plan Plan: Worsening shortness of breath likely related to acute exacerbation of congestive heart failure, patient was started on IV Lasix in the emergency room echocardiogram was ordered and cardiology consultation was requested. Underlying history of coronary artery disease with history of coronary artery bypass graft surgery Underlying history of atrial fibrillation status post watchman procedure 1 months ago Underlying history of rectal bleeding with admission about 3 weeks ago Underlying history of hypertension Underlying history of hyperlipidemia Underlying history of insulin-dependent diabetes mellitus At this time patient will be admitted to telemetry floor He was started on IV Lasix Home medications reviewed and reordered Echocardiogram ordered cardiology consultation requested Will follow closely
[2023-02-07 11:57] LABS: Glucose,Whole Blood 123 mg/dL (70-110)
--- NOTE | 2023-02-07 12:06 | P.PN ---
Subjective Progress Note Date: 02/07/23 HISTORY OF PRESENTING ILLNESS This is a pleasant 73-year-old male past medical history significant for par oxysmal atrial fibrillation with GI bleed s/p recent Watchman procedure, coronary artery disease s/p CABG (VALLE to LAD, SVG to OM, SVG to PDA branch of RCA) in 2005, PCI ostium and mid circumflex in 2014, hypertension, type 2 diabetes, dyslipidemia, former nicotine dependence, peripheral vascular disease with severe bilateral SFA disease, atherectomy and prior stenting with Dr. Porras and Dr. Meeks. He follows in the office with Dr. Hendricks patient admits to increased dyspnea with exertion and chest tightness with mild exertion. He states this has been fairly persistent over the last 3-6 months. He admits sometimes this is worsened if he does have GI bleed and his hemoglobin significantly decrease. Previous hemoglobin ranged 1011 and he is currently 9. He did undergo recent Watchman procedure proximally 3 weeks ago and follow-up in office. He denies any significant increase in lower extremity edema however does have trace lower extremity edema. He was given IV Lasix with very minimal change in symptoms. He has been on Ranexa, metoprolol and blood pressures borderline. When he presented with blood pressure somewhat increased however since has been lower in the systolic 100-120 range. EKG shows sinus rhythm with normal axis with diffuse ST depressions inferior lateral leads. Blood work shows hemoglobin 9.1, cr 1.6, troponin 0.02, 0.018, 0.019. He admits he has not been able to be as active secondary to significant dyspnea with minimal exertion. * Last Cardiac Catheterization 10/2016 revealed total occlusion of the viejas circumflex that was stented in March 2015, appears chronic occlusion. Vein graft to the PDA is patent, PDA itself is diffusely diseased. Vein graft obtuse marginal/PLV branch of circumflex and the VALLE to LAD are widely patent. 02/05 Patient seen and examined. Patient has been receiving Lasix 40 mg IV every 12 hours and admits to good urine output. Creatinine relatively stable, minimally elevated from 1.6-1.7 however appears at his baseline. He admits to feeling somewhat better in terms of the shortness breath however has not been that active. Scheduled for Lexiscan stress test tomorrow. 02/06 Patient is seen today in follow-up. He denies having any chest pain, shortness of breath, no palpitations, no lightheadedness or dizziness. Patient is scheduled for Lexiscan stress test today and maintained on his home cardiac medications and on IV Lasix 40 mg every 12 hours. Repeat blood work reveals hemoglobin of 8.9, potassium 3.8, BUN 29 creatinine 1.85. 02/07 Patient is seen today in follow-up. He underwent Lexiscan stress test yesterday which revealed stressed induced ischemia not excluded in the anterior apical wall. Hypokinesia with ejection fraction 36%. Patient denies having any chest pain and no dizziness, no palpitations. He states his breathing is a little bit better. He has been on IV Lasix 40 mg every 12 hours. Repeat blood work reveals WBC 8.5, hemoglobin 9.7, platelet count 281. Potassium 4.2, BUN 31 creatinine 1.82. Discussed with patient results of stress test and options for treatment. Due to patient's poor kidney function, recommend medical management at this time. Patient may be discharged home and follow-up with Dr. SULMA Hendricks and possibly plan for cardiac catheterization at a later time. PHYSICAL EXAMINATION Vitals reviewed CONSTITUTIONAL: No apparent distress. HEENT: Head is normocephalic. Pupils are equal, round. Sclerae anicteric. Mucous membranes of the mouth are moist. No JVD. No carotid bruit. CHEST EXAMINATION: Lungs are diminished bilaterally to auscultation. No chest wall tenderness is noted on palpation or with deep breathing. HEART EXAMINATION: Irregular rate and rhythm. S1, S2 heard. No murmurs, gallops or rub. ABDOMEN: Soft, nontender. Positive bowel sounds. EXTREMITIES: 2+ peripheral pulses, trace bilateral lower extremity edema and no calf tenderness. SKIN: warm, dry NEUROLOGIC EXAMINATION: Patient is awake, alert and oriented x3. ASSESSMENT Acute on chronic diastolic heart failure Dyspnea and chest pain with exertion consistent with angina, worsening over last 3-6 months Generalized fatigue Paroxysmal atrial fibrillation sinus rhythm Coronary artery disease s/p CABG (VALLE to LAD, SVG to OM, SVG to PDA branch of RCA) in 2005, PCI ostium and mid circumflex in 2014 Hypertension Type 2 diabetes Dyslipidemia Former nicotine dependence Peripheral vascular disease with severe bilateral SFA disease, atherectomy and prior stenting with Dr. Porras and Dr. Meeks, most recently underwent angiogran, SFA arthrectomy and left SFA PTBA on 03/2022 CKD S/p Watchman Anemia, mildly decreased from prior levels PLAN Some of symptoms appear related to heart failure and continue with diuresis. Additionally however has been having significant chest tightness with minimal exertion consistent with angina with abnormal Lexiscan stress test. Recommend the patient continue medical management and follow-up with Dr. SULMA Hendricks in the office. Cardiac catheterization may be scheduled at a later time. Patient is cleared for discharge from cardiology. Nurse practitioner note has been reviewed, I agree with the documented findings and plan of care. Patient was seen and examined. Objective - Vital Signs Vital signs: Vital Signs Temp 98.3 F 02/07/23 07:28 Pulse 58 L 02/07/23 07:28 Resp 16 02/07/23 07:28 BP 134/64 02/07/23 07:28 Pulse Ox 96 02/07/23 07:28 FiO2 Intake & Output 02/06/23 02/07/23 02/07/23 18:59 06:59 18:59 Intake Total 340 Balance 340 Intake: Oral 340 Other: Voiding Method Toilet # Voids 1 2 - Labs CBC & Chem 7: 02/07/23 05:40 02/07/23 05:40 Labs: Abnormal Lab Results - Last 24 Hours (Table) 02/06/23 02/06/23 02/06/23 Range/Units 06:04 12:04 13:46 RBC (4.30-5.90) m/uL Hgb (13.0-17.5) gm/dL Hct (39.0-53.0) % MCH (25.0-35.0) pg MCHC (31.0-37.0) g/dL RDW (11.5-15.5) % Chloride (98-107) mmol/L BUN (9-20) mg/dL Creatinine (0.66-1.25) mg/dL Glucose (74-99) mg/dL POC Glucose (mg/dL) 193 H (70-110) mg/dL Hemoglobin A1c 8.0 H (<=6.0) % Phosphorus (2.5-4.5) mg/dL Magnesium (1.6-2.3) mg/dL Iron 14 L (65-175) UG/DL % Saturation 3.48 L (15.00-50.00) Urine Glucose (UA) (Negative) 02/06/23 02/06/23 02/06/23 Range/Units 16:40 17:12 21:30 RBC (4.30-5.90) m/uL Hgb (13.0-17.5) gm/dL Hct (39.0-53.0) % MCH (25.0-35.0) pg MCHC (31.0-37.0) g/dL RDW (11.5-15.5) % Chloride (98-107) mmol/L BUN (9-20) mg/dL Creatinine (0.66-1.25) mg/dL Glucose (74-99) mg/dL POC Glucose (mg/dL) 146 H 228 H (70-110) mg/dL Hemoglobin A1c (<=6.0) % Phosphorus (2.5-4.5) mg/dL Magnesium (1.6-2.3) mg/dL Iron (65-175) UG/DL % Saturation (15.00-50.00) Urine Glucose (UA) 4+ H (Negative) 02/07/23 02/07/23 02/07/23 Range/Units 05:40 05:40 05:43 RBC 4.04 L (4.30-5.90) m/uL Hgb 9.7 L (13.0-17.5) gm/dL Hct 33.1 L (39.0-53.0) % MCH 24.0 L (25.0-35.0) pg MCHC 29.3 L (31.0-37.0) g/dL RDW 18.1 H (11.5-15.5) % Chloride 96 L (98-107) mmol/L BUN 31 H (9-20) mg/dL Creatinine 1.82 H (0.66-1.25) mg/dL Glucose 125 H (74-99) mg/dL POC Glucose (mg/dL) 131 H (70-110) mg/dL Hemoglobin A1c (<=6.0) % Phosphorus 4.6 H (2.5-4.5) mg/dL Magnesium 2.4 H (1.6-2.3) mg/dL Iron (65-175) UG/DL % Saturation (15.00-50.00) Urine Glucose (UA) (Negative)
[2023-02-07] MEDS: MAGNESIUM OXIDE 400 MG TAB PO SCH (12:32)
--- NOTE | 2023-02-07 12:43 | P.DS ---
Providers Date of admission: 02/06/23 17:04 Expected date of discharge: 02/07/23 Attending physician: Chichi Chen Consults: 02/04/23 00:18 Consult Physician Routine Consulting Provider: [facility] Consult Reason/Comments: chf, dyspnea Do you want consulting provider notified?: Yes Primary care physician: Kristel Hall [facility] Course: Diagnosis on discharge: Worsening shortness of breath likely related to acute exacerbation of congestive heart failure, patient was started on IV Lasix in the emergency room echocardiogram was ordered and cardiology consultation was requested. Underlying history of coronary artery disease with history of coronary artery bypass graft surgery Underlying history of atrial fibrillation status post watchman procedure 1 months ago Underlying history of rectal bleeding with admission about 3 weeks ago Underlying history of hypertension Underlying history of hyperlipidemia Underlying history of insulin-dependent diabetes mellitus Hospital course: Kevin Mcknight, is a 73-year-old male who presented to [facility] emergency room with a chief complaint of worsening shortness of breath. He was evaluated in the emergency room vital examination on presentation revealed a temperature of 98.8 pulse 93 respiration 18 blood pressure 181/72 pulse ox 98% on room air Laboratory data revealed a white blood count of 6.4 hemoglobin 9.1 platelet count 201 sodium 136 potassium 3.8 BUN 24 creatinine 1.6 to glucose 286 Testing in the emergency room revealed chest x-ray done in the emergency room revealed no acute cardiopulmonary process, EKG done in the emergency room revealed sinus rhythm with intraventricular conduction delay Patient was admitted to medical floor for further evaluation and treatment Past medical history is significant for history of coronary artery disease with history of coronary artery bypass graft surgery, history of atrial fibrillation, status post watchman procedure 1 month ago, history of peripheral arterial disease, history of chronic kidney disease, recent admission about 3 weeks ago for rectal bleeding, history of hypertension, history of hyperlipidemia, and history of insulin-dependent diabetes mellitus On review of systems patient is alert and oriented 3 in no apparent distress he is complaining of shortness of breath with any activity otherwise he denies any complaints there is no fever or chills no headache or dizziness no chest pain no cough no palpitation no nausea or vomiting no abdominal pain no diarrhea no blood in the stools no burning with urination no frequency or urgency and no hematuria. On 02/05/2023 patient was seen and examined on the medical floor he is alert and oriented 3 in no apparent distress he reports some improvement in his shortness of breath he is complaining of some chest tightness otherwise he denies any complaints there is no fever or chills no headache or dizziness no cough no nausea or vomiting no abdominal pain no diarrhea no blood in the stools no burning with urination no frequency or urgency and no hematuria. Cardiology consult reviewed, plan is for a stress test tomorrow, will continue to follow closely On 02/06/2023 patient was seen and examined on the medical floor he is alert and oriented 3 in no distress there is no fever or chills no headache or dizziness no chest pain no shortness of breath no cough no nausea or vomiting no abdominal pain no diarrhea and no urinary symptoms, he is scheduled for a stress test today Will continue to follow closely. On 02/07/2023 patient was seen and examined on the medical floor he is alert and oriented 3 in no apparent distress there is no fever or chills no headache or dizziness no chest pain, his shortness of breath has improved since admission, there is no nausea or vomiting no abdominal pain no diarrhea no blood in the stools no burning with urination no frequency or urgency and no hematuria. Patient underwent a stress test yesterday, cardiac ischemia could not be ruled out on nuclear scan, he was reevaluated today by cardiology and decision was made not to proceed with cardiac catheterization at this time, patient will follow with Dr SULMA mast, possible cardiac catheterization as outpatient. Dose of Lasix was increased to 40 mg PO bid during this admission. Patient Condition at Discharge: Stable Plan - Discharge Summary Discharge Rx Participant: No New Discharge Prescriptions: New Furosemide [Lasix] 40 mg PO BID@0900,1600 tab Continue allopurinoL [Zyloprim] 100 mg PO DAILY Nitroglycerin Sl Tabs [Nitrostat] 0.4 mg SL Q5M PRN PRN Reason: Chest Pain Montelukast [Singulair] 10 mg PO DAILY Ranolazine [Ranexa] 500 mg PO BID Pravastatin Sodium 80 mg PO HS Empagliflozin [Jardiance] 12.5 mg PO DAILY Metoprolol Succinate (ER) [Toprol XL] 100 mg PO BID Aspirin EC [Ecotrin Low Dose] 81 mg PO Q48H Cholecalciferol (Vitamin D3) [Vitamin D3 (125 MCG = 5,000 IU)] 125 mcg PO HS Magnesium Oxide [Magnesium] 1,000 mg PO DAILY@1200 Pantoprazole [Protonix] 40 mg PO BID Simethicone [Gas-X] 125 mg PO QID PRN PRN Reason: gas/bloating Cyanocobalamin [Vitamin B-12 Injection] 1,000 mcg SQ Q60D Clopidogrel [Plavix] 75 mg PO DAILY Insulin NPH Human Isophane [Novolin N] 64 units SQ DAILY polyethylene glycoL 3350 [Miralax] 17 gm PO DAILY packet Discontinued Furosemide [Lasix] 20 mg PO HS Furosemide [Lasix] 40 mg PO DAILY Discharge Medication List allopurinoL [Zyloprim] 100 mg PO DAILY 03/16/15 [History] Nitroglycerin Sl Tabs [Nitrostat] 0.4 mg SL Q5M PRN 05/12/16 [History] Montelukast [Singulair] 10 mg PO DAILY 08/31/17 [History] Ranolazine [Ranexa] 500 mg PO BID 08/31/17 [History] Pravastatin Sodium 80 mg PO HS 01/15/19 [History] Empagliflozin [Jardiance] 12.5 mg PO DAILY 08/04/21 [History] Cholecalciferol (Vitamin D3) [Vitamin D3 (125 MCG = 5,000 IU)] 125 mcg PO HS 02/10/22 [History] Magnesium Oxide [Magnesium] 1,000 mg PO DAILY@1200 02/10/22 [History] Metoprolol Succinate (ER) [Toprol XL] 100 mg PO BID 02/10/22 [History] Pantoprazole [Protonix] 40 mg PO BID 02/10/22 [History] Aspirin EC [Ecotrin Low Dose] 81 mg PO Q48H 06/20/22 [History] Simethicone [Gas-X] 125 mg PO QID PRN 10/18/22 [History] Cyanocobalamin [Vitamin B-12 Injection] 1,000 mcg SQ Q60D 10/19/22 [History] Clopidogrel [Plavix] 75 mg PO DAILY 01/14/23 [History] Insulin NPH Human Isophane [Novolin N] 64 units SQ DAILY 01/14/23 [History] polyethylene glycoL 3350 [Miralax] 17 gm PO DAILY packet 01/17/23 [Rx] Furosemide [Lasix] 40 mg PO BID@0900,1600 tab 02/07/23 [Rx] Follow up Appointment(s)/Referral(s): Kristel Hall MD [Primary Care Provider] - 1-2 days Nahid Porras MD [STAFF PHYSICIAN] - 1 Week
[2023-02-07] MEDS ORDERED: FUROSEMIDE 40 MG TAB PO SCH (16:00)
[2023-02-25] MEDS ORDERED: CYANOCOBALAMIN 1,000 MCG/ML 1 ML VIAL SQ SCH (09:00)
== END 2023-02-07 13:16 | disposition home or self-care (01) | DRG 291 ==
LOC: EC 20:42 → 6NMEDSUR 02-04 00:12 → 4SSUR 02-04 12:41 → 6NMEDSUR 02-04 16:49 → OBSVTOIN 02-06 17:04
PROVIDERS: ADMIT Internal Medicine; ATTEND Internal Medicine
DX: I13.0 Hypertensive heart and chronic kidney disease with heart failure and stage 1 through stage 4 chronic kidney disease, or unspecified chronic kidney disease (principal); I50.33 Acute on chronic diastolic (congestive) heart failure; I48.0 Paroxysmal atrial fibrillation; I25.2 Old myocardial infarction; I25.119 Atherosclerotic heart disease of native coronary artery with unspecified angina pectoris; E78.5 Hyperlipidemia, unspecified; N18.30 Chronic kidney disease, stage 3 unspecified; D63.1 Anemia in chronic kidney disease; K21.9 Gastro-esophageal reflux disease without esophagitis; G89.29 Other chronic pain; M25.552 Pain in left hip; M25.551 Pain in right hip; Z95.828 Presence of other vascular implants and grafts; Z86.010 Personal history of colon polyps; Z28.21 Immunization not carried out because of patient refusal; E11.22 Type 2 diabetes mellitus with diabetic chronic kidney disease; E11.51 Type 2 diabetes mellitus with diabetic peripheral angiopathy without gangrene; Z95.1 Presence of aortocoronary bypass graft; I70.203 Unspecified atherosclerosis of native arteries of extremities, bilateral legs; Z79.84 Long term (current) use of oral hypoglycemic drugs; Z79.02 Long term (current) use of antithrombotics/antiplatelets; Z79.4 Long term (current) use of insulin; Z79.899 Other long term (current) drug therapy; Z82.49 Family history of ischemic heart disease and other diseases of the circulatory system; Z87.19 Personal history of other diseases of the digestive system; Z95.818 Presence of other cardiac implants and grafts; Z79.82 Long term (current) use of aspirin
CPT/HCPCS: 36415; 71046; 78452; 80048; 80053; 81003; 82043; 82570; 82607; 82746; 83036; 83540; 83550; 83735; 83880; 84100; 84484; 85025; 85610; 85730; 87636; 93005; 93017; 93306; 94760; 96374; 96376; 99285

== ENCOUNTER 2023-02-14 12:24 | Observation (INO) | payer MEDICARE ==
--- NOTE | 2023-02-14 13:24 | ED ---
General Adult HPI - General Chief complaint: GI Bleed Stated complaint: SOB Time Seen by Provider: 02/14/23 13:16 Source: patient, RN notes reviewed, old records reviewed Mode of arrival: ambulatory Limitations: no limitations - History of Present Illness Initial comments: 73-year-old male presents for reevaluation of suspected gastrointestinal bleed. He states he's had dark stool for the past 4 days. He states his primary care physician and ordered blood testing yesterday and noted that his hemoglobin was 8. He states he is short of breath and lightheaded with standing. He states that he stopped taking his Plavix over the past 24 hours with concern for gastrointestinal hemorrhage. He states he's had this many times in the past. Denies abdominal pain. Denies chest pain. - Related Data Home Medications Medication Instructions Recorded Confirmed allopurinoL [Zyloprim] 100 mg PO DAILY 03/16/15 02/04/23 Nitroglycerin Sl Tabs [Nitrostat] 0.4 mg SL Q5M PRN 05/12/16 02/04/23 Montelukast [Singulair] 10 mg PO DAILY 08/31/17 02/04/23 Ranolazine [Ranexa] 500 mg PO BID 08/31/17 02/04/23 Pravastatin Sodium 80 mg PO HS 01/15/19 02/04/23 Empagliflozin [Jardiance] 12.5 mg PO DAILY 08/04/21 02/04/23 Cholecalciferol (Vitamin D3) 125 mcg PO HS 02/10/22 02/04/23 [Vitamin D3 (125 MCG = 5,000 IU)] Magnesium Oxide [Magnesium] 1,000 mg PO DAILY@1200 02/10/22 02/04/23 Metoprolol Succinate (ER) [Toprol 100 mg PO BID 02/10/22 02/04/23 XL] Pantoprazole [Protonix] 40 mg PO BID 02/10/22 02/04/23 Aspirin EC [Ecotrin Low Dose] 81 mg PO Q48H 06/20/22 02/04/23 Simethicone [Gas-X] 125 mg PO QID PRN 10/18/22 02/04/23 Cyanocobalamin [Vitamin B-12 1,000 mcg SQ Q60D 10/19/22 02/04/23 Injection] Clopidogrel [Plavix] 75 mg PO DAILY 01/14/23 02/04/23 Insulin NPH Human Isophane 64 units SQ DAILY 01/14/23 02/04/23 [Novolin N] Previous Rx's Medication Instructions Recorded polyethylene glycoL 3350 [Miralax] 17 gm PO DAILY packet 01/17/23 Furosemide [Lasix] 40 mg PO BID@0900,1600 tab 02/07/23 Allergies Allergy/AdvReac Type Severity Reaction Status Date / Time Sulfa (Sulfonamide Allergy Rash/Hives Verified 02/04/23 10:51 Antibiotics) sulfamethoxazole Allergy Rash/Hives Verified 02/04/23 10:51 [From Bactrim] trimethoprim [From Bactrim] Allergy Rash/Hives Verified 02/04/23 10:51 Review of Systems ROS Statement: Those systems with pertinent positive or pertinent negative responses have been documented in the HPI. ROS Other: All systems not noted in ROS Statement are negative. Past Medical History Past Medical History: Atrial Fibrillation, Coronary Artery Disease (CAD), Chest Pain / Angina, Heart Failure, Diabetes Mellitus, GERD/Reflux, GI Bleed, Hyperlipidemia, Hypertension, Myocardial Infarction (GA), Osteoarthritis (OA), Renal Disease, Vascular Disorder Additional Past Medical History / Comment(s): IDDN type II, CKD stage III, rectal bleed with anemia, PAD, caratid artery disease, chronic low back pain/bilateral hip pain, past r foot gout, benign colon polyps Last Myocardial Infarction Date:: 09/2016, 06/20/22 History of Any Multi-Drug Resistant Organisms: None Reported Past Surgical History: Cholecystectomy, Coronary Bypass/CABG, Heart Catheterization, Heart Catheterization With Stent, Orthopedic Surgery, Tonsillectomy Additional Past Surgical History / Comment(s): Multiple peripheral revascularization procedures/stents/arthrectomies/ballooning, multiple aortagrams with runoffs, JOIE, , 2006 CABG 3 vessel, EGD, colonoscopies/ polypectomies, cyst on back drained. Past Anesthesia/Blood Transfusion Reactions: No Reported Reaction Additional Past Anesthesia/Blood Transfusion Reaction / Comment(s): Pt has received blood in past without reaction. Date of Last Stent Placement:: 2013 Past Psychological History: No Psychological Hx Reported Smoking Status: Former smoker Past Alcohol Use History: None Reported Past Drug Use History: None Reported - Past Family History Father Family Medical History: Myocardial Infarction (GA) Additional Family Medical History / Comment(s): He had a GA in his 30s and had CABG in his 50s. Mother Family Medical History: Pulmonary Embolus General Exam Limitations: no limitations General appearance: alert, in no apparent distress Head exam: Present: atraumatic, normocephalic Eye exam: Present: normal appearance, PERRL ENT exam: Present: normal exam Neck exam: Present: normal inspection. Absent: tenderness, meningismus Respiratory exam: Present: normal lung sounds bilaterally. Absent: respiratory distress, wheezes Cardiovascular Exam: Present: regular rate, normal rhythm GI/Abdominal exam: Present: soft. Absent: distended, tenderness, guarding, rebound Neurological exam: Present: alert, oriented X3, CN II-XII intact. Absent: motor sensory deficit Psychiatric exam: Present: normal affect, normal mood Skin exam: Present: warm, dry, intact Course Vital Signs 02/14/23 12:43 Temperature 97.1 F L Pulse Rate 73 Respiratory 18 Rate Blood Pressure 111/64 O2 Sat by Pulse 98 Oximetry Medical Decision Making - Medical Decision Making Was pt. sent in by a medical professional or institution (, PA, MEMBERSHIP MANAGER, urgent care, hospital, or alf...) When possible be specific @ -No Did you speak to anyone other than the patient for history (EMS, parent, family, police, friend...)? What history was obtained from this source @ -No Did you review nursing and triage notes (agree or disagree)? Why? @ -I reviewed and agree with nursing and triage notes Were old charts reviewed (outside hosp., previous admission, EMS record, old EKG , old radiological studies, urgent care reports/EKG's, alf records)? Report findings @ -No old charts were reviewed Differential Diagnosis (chest pain, altered mental status, abdominal pain women, abdominal pain men, vaginal bleeding, weakness, fever, dyspnea, syncope, headache, dizziness, GI bleed, back pain, seizure, CVA, palpatations, mental health, musculoskeletal)? @ -[Differential GI Bleed: Esophageal varices, aortoenteric fistula, Alexia-Wood, gastritis, peptic ulcer disease, diverticulosis, inflammatory bowel disease, hemorrhoids, fissure, colitis, malignancy, Meckels diverticulum, this is not meant to be an all- inclusive list. EKG interpreted by me (3pts min.). @ -[EKG showing sinus rhythm rate of 69, GA interval 134, QRS duration 92, QTC [address] segment elevation, T-wave inversion and ST segment depression in the lateral precordial leads. X-rays interpreted by me (1pt min.). @ -None done CT interpreted by me (1pt min.). @ -None done U/S interpreted by me (1pt. min.). @ -None done What testing was considered but not performed or refused? (CT, X-rays, U/S, labs)? Why? @ -None What meds were considered but not given or refused? Why? @ -None Did you discuss the management of the patient with other professionals (professionals i.e. DrMitch, PA, MEMBERSHIP MANAGER, lab, RT, psych nurse, social contact worker, privacy attorney, teacher, information assurance officer, business case analyst)? Give summary @ -[Dr. Chen Was smoking cessation discussed for >3mins.? @ -No Was critical care preformed (if so, how long)? @ -No Were there social determinants of health that impacted care today? How? (Homele ssness, low income, unemployed, alcoholism, drug addiction, transportation, low edu. Level, literacy, decrease access to med. care, group home, rehab)? @ -No Was there de-escalation of care discussed even if they declined (Discuss DNR or withdrawal of care, Hospice)? DNR status @ -No What co-morbidities impacted this encounter? (DM, HTN, Smoking, COPD, CAD, Cancer, CVA, ARF, Chemo, Hep., AIDS, mental health diagnosis, sleep apnea, morbid obesity)? @ -[CAD, previous GI bleed Was patient admitted / discharged? Hospital course, mention meds given and route, prescriptions, significant lab abnormalities, going to OR and other pertinent info. @ -Hemoglobin is stable for this patient at 8.6. Will observe overnight with serial CBC ordered. He will be given Protonix in the emergency department and continued on Protonix. Hemodynamics are stable. Case discussed with Dr. Chen who will admit. Undiagnosed new problem with uncertain prognosis? @ -No Drug Therapy requiring intensive monitoring for toxicity (Heparin, Nitro, Insulin, Cardizem)? @ -No Were any procedures done? @ -No Diagnosis/symptom? @ -Anemia Acute, or Chronic, or Acute on Chronic? @ -Chronic Uncomplicated (without systemic symptoms) or Complicated (systemic symptoms)? @ -default Side effects of treatment? @ -No Exacerbation, Progression, or Severe Exacerbation? @ -No Poses a threat to life or bodily function? How? (Chest pain, USA, GA, pneumonia, PE, COPD, DKA, ARF, appy, cholecystitis, CVA, Diverticulitis, Homicidal, Suicidal, threat to staff... and all critical care pts) @ -Yes, blood loss, hemorrhagic shock - Lab Data Result diagrams: 02/14/23 13:37 02/14/23 13:37 Lab Results 02/14/23 02/14/23 02/14/23 Range/Units 13:37 13:37 13:37 WBC 6.9 (3.8-10.6) k/uL RBC 3.48 L (4.30-5.90) m/uL Hgb 8.6 L (13.0-17.5) gm/dL Hct 27.7 L (39.0-53.0) % MCV 79.5 L (80.0-100.0) fL MCH 24.6 L (25.0-35.0) pg MCHC 30.9 L (31.0-37.0) g/dL RDW 18.3 H (11.5-15.5) % Plt Count 275 (150-450) k/uL MPV 7.9 Neutrophils % 70 % Lymphocytes % 19 % Monocytes % 8 % Eosinophils % 1 % Basophils % 1 % Neutrophils # 4.8 (1.3-7.7) k/uL Lymphocytes # 1.3 (1.0-4.8) k/uL Monocytes # 0.5 (0-1.0) k/uL Eosinophils # 0.1 (0-0.7) k/uL Basophils # 0.0 (0-0.2) k/uL Hypochromasia Marked Poikilocytosis Slight Anisocytosis Slight Microcytosis Slight PT 11.1 (9.0-12.0) sec INR 1.1 (<1.2) APTT 21.5 L (22.0-30.0) sec Sodium 134 L (137-145) mmol/L Potassium 4.7 (3.5-5.1) mmol/L Chloride 97 L (98-107) mmol/L Carbon Dioxide 27 (22-30) mmol/L Anion Gap 10 mmol/L BUN 42 H (9-20) mg/dL Creatinine 2.13 H (0.66-1.25) mg/dL Est GFR (CKD-EPI)AfAm 34 (>60 ml/min/1.73 sqM) Est GFR (CKD-EPI)NonAf 30 (>60 ml/min/1.73 sqM) Glucose 202 H (74-99) mg/dL Calcium 8.6 (8.4-10.2) mg/dL Magnesium 2.3 (1.6-2.3) mg/dL Total Bilirubin 0.6 (0.2-1.3) mg/dL AST 36 (17-59) U/L ALT 15 (4-49) U/L Alkaline Phosphatase 95 (38-126) U/L Total Protein 6.7 (6.3-8.2) g/dL Albumin 4.1 (3.5-5.0) g/dL Disposition Clinical Impression: Symptomatic anemia Disposition: ADMITTED IP TO THIS HOSP Condition: Stable Is patient prescribed a controlled substance at d/c from ED?: No Referrals: Kristel Hall MD [Primary Care Provider] - 1-2 days Time of Disposition: 14:41
[2023-02-14 13:51] LABS: Anisocytosis Slight; Basophils % (A) 1 %; Eosinophils # (A) 0.1 k/uL (0-0.7); Eosinophils % (A) 1 %; HCT 27.7 % (39.0-53.0); HGB 8.6 gm/dL (13.0-17.5); Hypochromasia Marked; Lymphocytes # (A) 1.3 k/uL (1.0-4.8); Lymphocytes % (A) 19 %; MCH 24.6 pg (25.0-35.0); MCHC 30.9 g/dL (31.0-37.0); MCV 79.5 fL (80.0-100.0); Mean Platelet Volume 7.9; Microcytosis Slight; Monocytes # (A) 0.5 k/uL (0-1.0); Monocytes % (A) 8 %; Neutrophils # (A) 4.8 k/uL (1.3-7.7); Neutrophils % (A) 70 %; Platelet Count 275 k/uL (150-450); Poikilocytosis Slight; RBC 3.48 m/uL (4.30-5.90); RDW 18.3 % (11.5-15.5); WBC 6.9 k/uL (3.8-10.6)
--- NOTE | 2023-02-14 13:52 | XR ---
EXAMINATION TYPE: XR chest 2V DATE OF EXAM: 02/14/2023 COMPARISON: 02/03/2023 HISTORY: 73 year-old male shortness of breath, difficulty breathing TECHNIQUE: PA and lateral views FINDINGS: Heart upper limits of normal in size. Median sternotomy wires are present. Some strandy atelectasis i n the lower lungs. No consolidation or pleural effusion. IMPRESSION: Strandy atelectasis in the lower lungs. No definite acute process.
[2023-02-14 14:19] LABS: INR 1.1 (<1.2); Prothrombin Time 11.1 sec (9.0-12.0)
[2023-02-14 14:21] LABS: ALT 15 U/L (4-49); AST 36 U/L (17-59); African American GFR (CKD) 34 (>60 ml/min/1.73 sqM); Albumin 4.1 g/dL (3.5-5.0); Alkaline Phosphatase 95 U/L (38-126); Anion Gap 10 mmol/L; Blood Urea Nitrogen 42 mg/dL (9-20); Calcium 8.6 mg/dL (8.4-10.2); Carbon Dioxide 27 mmol/L (22-30); Chloride 97 mmol/L (98-107); Glucose 202 mg/dL (74-99); Magnesium 2.3 mg/dL (1.6-2.3); Non-African American GFR(CKD) 30 (>60 ml/min/1.73 sqM); Sodium 134 mmol/L (137-145); Total Bilirubin 0.6 mg/dL (0.2-1.3); Total Protein 6.7 g/dL (6.3-8.2)
[2023-02-14 14:25] LABS: Potassium 4.7 mmol/L (3.5-5.1)
[2023-02-14 14:33] LABS: Partial Thromboplastin Time 21.5 sec (22.0-30.0)
[2023-02-14] MEDS ORDERED: NALOXONE 0.4 MG/ML 1 ML VIAL IV PRN (14:38)
[2023-02-14] MEDS ORDERED: ONDANSETRON 4 MG/2 ML VIAL IVP PRN (14:38)
[2023-02-14] MEDS ORDERED: ACETAMINOPHEN TAB 325 MG TAB PO PRN (14:38)
[2023-02-14] MEDS ORDERED: PANTOPRAZOLE 40 MG/10 ML VIAL IVP STA (14:39)
[2023-02-14] MEDS ORDERED: DEXTROSE 50% SYRINGE 50 ML IVP PRN ×2 (18:34)
[2023-02-14 20:37] LABS: Glucose,Whole Blood 224 mg/dL (70-110)
[2023-02-14] MEDS: PANTOPRAZOLE 40 MG/10 ML VIAL IVP SCH (21:16)
[2023-02-14] MEDS: INSULIN ASPART (NovoLOG) 100 UNIT/ML VIAL SQ SCH (21:16)
[2023-02-14 22:27] LABS: Anisocytosis Slight; Basophils % (A) 1 %; Eosinophils # (A) 0.1 k/uL (0-0.7); Eosinophils % (A) 2 %; HCT 27.4 % (39.0-53.0); HGB 8.1 gm/dL (13.0-17.5); Hypochromasia Marked; Lymphocytes % (A) 28 %; MCH 23.8 pg (25.0-35.0); MCHC 29.5 g/dL (31.0-37.0); MCV 80.5 fL (80.0-100.0); Mean Platelet Volume 7.9; Microcytosis Slight; Monocytes # (A) 0.6 k/uL (0-1.0); Monocytes % (A) 8 %; Neutrophils # (A) 4.3 k/uL (1.3-7.7); Neutrophils % (A) 60 %; Platelet Count 252 k/uL (150-450); Poikilocytosis Slight; RDW 18.2 % (11.5-15.5); WBC 7.1 k/uL (3.8-10.6)
[2023-02-15 05:29] LABS: Glucose,Whole Blood 90 mg/dL (70-110)
[2023-02-15 06:03] LABS: Glucose,Whole Blood 140 mg/dL (70-110)
[2023-02-15] MEDS: INSULIN ASPART (NovoLOG) 100 UNIT/ML VIAL SQ SCH ×4 (08:23→21:05)
[2023-02-15] MEDS: PANTOPRAZOLE 40 MG/10 ML VIAL IVP SCH ×2 (08:27→20:36)
[2023-02-15] MEDS ORDERED: SIMETHICONE 80 MG CHEWABLE PO PRN (09:11)
[2023-02-15] MEDS ORDERED: CYANOCOBALAMIN 1,000 MCG/ML 1 ML VIAL SQ SCH (10:00)
[2023-02-15 11:41] LABS: Glucose,Whole Blood 162 mg/dL (70-110)
[2023-02-15 11:46] LABS: Anisocytosis Slight; Basophils % (A) 0 %; Eosinophils # (A) 0.1 k/uL (0-0.7); Eosinophils % (A) 1 %; HCT 28.6 % (39.0-53.0); HGB 8.6 gm/dL (13.0-17.5); Hypochromasia Marked; Lymphocytes # (A) 1.5 k/uL (1.0-4.8); Lymphocytes % (A) 23 %; MCH 24.4 pg (25.0-35.0); MCV 81.3 fL (80.0-100.0); Mean Platelet Volume 7.8; Microcytosis Slight; Monocytes # (A) 0.4 k/uL (0-1.0); Monocytes % (A) 6 %; Neutrophils # (A) 4.5 k/uL (1.3-7.7); Neutrophils % (A) 68 %; Platelet Count 241 k/uL (150-450); Poikilocytosis Slight; RBC 3.51 m/uL (4.30-5.90); RDW 18.2 % (11.5-15.5); WBC 6.7 k/uL (3.8-10.6)
[2023-02-15] MEDS: MAGNESIUM OXIDE 400 MG TAB PO SCH (12:01)
--- NOTE | 2023-02-15 12:11 | P.HPIM ---
History of Present Illness H&P Date: 02/14/23 Kevin Mcknight, is a 73-year-old male who presented to [facility] emergency room with a chief complaint of GI bleed. Patient has a recurring history of GI bleed secondary to anticoagulation. Patient is status post watchman procedure in which she is maintained on aspirin and Plavix. Patient recently had admission in which she was seen by surgical and cardiology services. Patient states he days after discharge he started to having episodes of dark stool. Patient denies any bloody emesis. He was evaluated in the emergency room vital examination on presentation revealed temp 97.8, heart rate 66, respiratory rate 16, blood pressure 126/60 with a pulse ox 96% on room air. Laboratory data reveals hemoglobin 8.1 Testing in the emergency room revealed chest x-ray completed showing strandy atelectasis in the lower lungs no definitive acute process Patient was admitted to medical floor for further evaluation and treatment. Cardiology and surgical services consulted Past medical history is significant for CHF, coronary artery disease, atrial fibrillation status post watchman procedure on January 11. Previous history of rectal bleeding, hypertension, hyperlipidemia and insulin-dependent diabetes mellitus On review of systems Patient denies chest pain or shortness of breath. Patient denies nausea vomiting diarrhea. Patient denies any urinary burning or frequency. Patient reports he has not had bowel movement since admission Review of Systems Please refer to HPI otherwise unremarkable Past Medical History Past Medical History: Atrial Fibrillation, Coronary Artery Disease (CAD), Chest Pain / Angina, Heart Failure, Diabetes Mellitus, GERD/Reflux, GI Bleed, Hyperlipidemia, Hypertension, Myocardial Infarction (VT), Osteoarthritis (OA), Renal Disease, Vascular Disorder Additional Past Medical History / Comment(s): IDDN type II, CKD stage III, rectal bleed with anemia, PAD, caratid artery disease, chronic low back pain/bilateral hip pain, past r foot gout, benign colon polyps Last Myocardial Infarction Date:: 09/2016, 06/20/22 History of Any Multi-Drug Resistant Organisms: None Reported Past Surgical History: Cholecystectomy, Coronary Bypass/CABG, Heart Catheterization, Heart Catheterization With Stent, Orthopedic Surgery, Tonsillectomy Additional Past Surgical History / Comment(s): Multiple peripheral revascularization procedures/stents/arthrectomies/ballooning, multiple aortagrams with runoffs, JIOE, , 2006 CABG 3 vessel, EGD, colonoscopies/polypectomies, cyst on back drained. Past Anesthesia/Blood Transfusion Reactions: No Reported Reaction Additional Past Anesthesia/Blood Transfusion Reaction / Comment(s): Pt has received blood in past without reaction. Date of Last Stent Placement:: 2013 Past Psychological History: No Psychological Hx Reported Additional Psychological History / Comment(s): Pt resides with his spouse and is independent. Smoking Status: Former smoker Past Alcohol Use History: None Reported Additional Past Alcohol Use History / Comment(s): Started smoking about 1965, 2 PPD, quit in 2005. Past Drug Use History: None Reported - Past Family History Father Family Medical History: Myocardial Infarction (VT) Additional Family Medical History / Comment(s): He had a VT in his 30s and had CABG in his 50s. Mother Family Medical History: Pulmonary Embolus Medications and Allergies Home Medications Medication Instructions Recorded Confirmed Type allopurinoL [Zyloprim] 100 mg PO DAILY 03/16/15 02/14/23 History Nitroglycerin Sl Tabs [Nitrostat] 0.4 mg SL Q5M PRN 05/12/16 02/14/23 History Montelukast [Singulair] 10 mg PO DAILY 08/31/17 02/14/23 History Ranolazine [Ranexa] 500 mg PO BID 08/31/17 02/14/23 History Pravastatin Sodium 80 mg PO HS 01/15/19 02/14/23 History Empagliflozin [Jardiance] 12.5 mg PO DAILY 08/04/21 02/14/23 History Cholecalciferol (Vitamin D3) 125 mcg PO HS 02/10/22 02/14/23 History [Vitamin D3 (125 MCG = 5,000 IU)] Magnesium Oxide [Magnesium] 1,000 mg PO DAILY@1200 02/10/22 02/14/23 History Metoprolol Succinate (ER) [Toprol 100 mg PO BID 02/10/22 02/14/23 History XL] Pantoprazole [Protonix] 40 mg PO BID 02/10/22 02/14/23 History Aspirin EC [Ecotrin Low Dose] 81 mg PO Q48H 06/20/22 02/14/23 History Simethicone [Gas-X] 125 mg PO QID PRN 10/18/22 02/14/23 History Cyanocobalamin [Vitamin B-12 1,000 mcg SQ Q60D 10/19/22 02/14/23 History Injection] Clopidogrel [Plavix] 75 mg PO DAILY 01/14/23 02/14/23 History Insulin NPH Human Isophane 64 units SQ DAILY 01/14/23 02/14/23 History [Novolin N] polyethylene glycoL 3350 [Miralax] 17 gm PO DAILY packet 01/17/23 02/14/23 Rx Furosemide [Lasix] 40 mg PO BID@0900,1600 tab 02/07/23 02/14/23 Rx Allergies Allergy/AdvReac Type Severity Reaction Status Date / Time Sulfa (Sulfonamide Allergy Rash/Hives Verified 02/14/23 14:55 Antibiotics) sulfamethoxazole Allergy Rash/Hives Verified 02/14/23 14:55 [From Bactrim] trimethoprim [From Bactrim] Allergy Rash/Hives Verified 02/14/23 14:55 Physical Exam Vitals: Vital Signs Temp Pulse Pulse Resp BP BP Pulse Ox 02/14/23 17:54 68 16 02/14/23 17:41 98.1 F 68 16 152/71 95 02/14/23 12:43 97.1 F L 73 18 111/64 98 Intake and Output 02/14/23 02/14/23 02/14/23 06:59 14:59 22:59 Other: Voiding Method Toilet Weight 115.666 kg 115.666 kg In general patient is alert and oriented x 3 in no distress HEENT head normocephalic and atraumatic Neck is supple no JVD no goiter no lymphadenopathy no carotid bruit Chest examination is clear to auscultation no crackles no wheezing Cardiac exam reveals regular heart sounds S1 and S2 no gallops no murmurs Abdomen is soft nontender no organomegaly with normal bowel sounds Extremity exam reveals no edema no cyanosis or clubbing Neurological examination reveals no gross focal deficits Results CBC & Chem 7: 02/15/23 11:13 02/14/23 13:37 Labs: Abnormal Lab Results - Last 24 Hours (Table) 02/14/23 02/14/23 02/14/23 Range/Units 13:37 13:37 13:37 RBC 3.48 L (4.30-5.90) m/uL Hgb 8.6 L (13.0-17.5) gm/dL Hct 27.7 L (39.0-53.0) % MCV 79.5 L (80.0-100.0) fL MCH 24.6 L (25.0-35.0) pg MCHC 30.9 L (31.0-37.0) g/dL RDW 18.3 H (11.5-15.5) % APTT 21.5 L (22.0-30.0) sec Sodium 134 L (137-145) mmol/L Chloride 97 L (98-107) mmol/L BUN 42 H (9-20) mg/dL Creatinine 2.13 H (0.66-1.25) mg/dL Glucose 202 H (74-99) mg/dL Thrombosis Risk Factor Assmnt - Choose All That Apply Any of the Below Risk Factors Present?: Yes Each Factor Represents 1 point: Obesity (BMI >25) Other Risk Factors: Yes Each Risk Factor Represents 2 Points: Age 61-74 years Thrombosis Risk Factor Assessment Total Risk Factor Score: 3 Thrombosis Risk Factor Assessment Level: Moderate Risk Assessment and Plan Assessment: 1. Anemia secondary to GI bleed 2. History of atrial fibrillation status post watchman procedure 1 month ago 3. History of CHF 4. History of previous episodes of rectal bleeding 5. History of essential hypertension 6. History of hyperlipidemia 7. History of insulin-dependent diabetes mellitus DVT prophylaxis SCDs. GI prophylaxis Protonix Cardiology and surgical service is consulted Repeat labs ordered Time with Patient: Greater than 30 (Greater than 60% of the total time spent in counseling and coordination of care)
--- NOTE | 2023-02-15 12:12 | P.PN ---
Subjective Progress Note Date: 02/15/23 Kevin Mcknight, is a 73-year-old male who presented to [facility] emergency room with a chief complaint of GI bleed. Patient has a recurring history of GI bleed secondary to anticoagulation. Patient is status post watchman procedure in which she is maintained on aspirin and Plavix. Dominik mccarthy recently had admission in which she was seen by surgical and cardiology services. Patient states he days after discharge he started to having episodes of dark stool. Patient denies any bloody emesis. He was evaluated in the emergency room vital examination on presentation revealed temp 97.8, heart rate 66, respiratory rate 16, blood pressure 126/60 with a pulse ox 96% on room air. Laboratory data reveals hemoglobin 8.1 Testing in the emergency room revealed chest x-ray completed showing strandy atelectasis in the lower lungs no definitive acute process Patient was admitted to medical floor for further evaluation and treatment. Cardiology and surgical services consulted Past medical history is significant for CHF, coronary artery disease, atrial fibrillation status post watchman procedure on January 11. Previous history of rectal bleeding, hypertension, hyperlipidemia and insulin-dependent diabetes mellitus On review of systems Patient denies chest pain or shortness of breath. Patient denies nausea vomiting diarrhea. Patient denies any urinary burning or frequency. Patient reports he has not had bowel movement since admission On 02/15/2023 patient is alert and oriented 3. Vital signs of 98.6, heart rate 71 Rate 18, blood pressure 131/70 with pulse of 98% on room air. At this time patient denies chest pain or shortness of breath. Patient denies nausea vomiting or diarrhea. Patient denies any urinary burning or frequency. Awaiting cardiology and surgical implant Objective - Vital Signs Vital signs: Vital Signs Temp 98.6 F 02/15/23 07:13 Pulse 71 02/15/23 07:13 Resp 18 02/15/23 07:13 BP 131/70 02/15/23 07:13 Pulse Ox 98 02/15/23 07:13 FiO2 Intake & Output 02/14/23 02/15/23 02/15/23 18:59 06:59 18:59 Intake Total 236 236 Balance 236 236 Weight 115.666 kg Intake: Oral 236 236 Other: Voiding Method Toilet Toilet # Voids 1 - Exam In general patient is alert and oriented x 3 in no distress HEENT head normocephalic and atraumatic Neck is supple no JVD no goiter no lymphadenopathy no carotid bruit Chest examination is clear to auscultation no crackles no wheezing Cardiac exam reveals regular heart sounds S1 and S2 no gallops no murmurs Abdomen is soft nontender no organomegaly with normal bowel sounds Extremity exam reveals no edema no cyanosis or clubbing Neurological examination reveals no gross focal deficits - Labs CBC & Chem 7: 02/15/23 11:13 02/14/23 13:37 Labs: Abnormal Lab Results - Last 24 Hours (Table) 02/14/23 02/14/23 02/14/23 Range/Units 13:37 13:37 13:37 RBC 3.48 L (4.30-5.90) m/uL Hgb 8.6 L (13.0-17.5) gm/dL Hct 27.7 L (39.0-53.0) % MCV 79.5 L (80.0-100.0) fL MCH 24.6 L (25.0-35.0) pg MCHC 30.9 L (31.0-37.0) g/dL RDW 18.3 H (11.5-15.5) % APTT 21.5 L (22.0-30.0) sec Sodium 134 L (137-145) mmol/L Chloride 97 L (98-107) mmol/L BUN 42 H (9-20) mg/dL Creatinine 2.13 H (0.66-1.25) mg/dL Glucose 202 H (74-99) mg/dL POC Glucose (mg/dL) (70-110) mg/dL 02/14/23 02/14/23 02/15/23 Range/Units 20:35 22:12 06:01 RBC 3.40 L (4.30-5.90) m/uL Hgb 8.1 L (13.0-17.5) gm/dL Hct 27.4 L (39.0-53.0) % MCV (80.0-100.0) fL MCH 23.8 L (25.0-35.0) pg MCHC 29.5 L (31.0-37.0) g/dL RDW 18.2 H (11.5-15.5) % APTT (22.0-30.0) sec Sodium (137-145) mmol/L Chloride (98-107) mmol/L BUN (9-20) mg/dL Creatinine (0.66-1.25) mg/dL Glucose (74-99) mg/dL POC Glucose (mg/dL) 224 H 140 H (70-110) mg/dL 02/15/23 02/15/23 Range/Units 11:13 11:40 RBC 3.51 L (4.30-5.90) m/uL Hgb 8.6 L (13.0-17.5) gm/dL Hct 28.6 L (39.0-53.0) % MCV (80.0-100.0) fL MCH 24.4 L (25.0-35.0) pg MCHC 30.0 L (31.0-37.0) g/dL RDW 18.2 H (11.5-15.5) % APTT (22.0-30.0) sec Sodium (137-145) mmol/L Chloride (98-107) mmol/L BUN (9-20) mg/dL Creatinine (0.66-1.25) mg/dL Glucose (74-99) mg/dL POC Glucose (mg/dL) 162 H (70-110) mg/dL Assessment and Plan Assessment: 1. Anemia secondary to GI bleed 2. History of atrial fibrillation status post watchman procedure 1 month ago 3. History of CHF 4. History of previous episodes of rectal bleeding 5. History of essential hypertension 6. History of hyperlipidemia 7. History of insulin-dependent diabetes mellitus DVT prophylaxis SCDs. GI prophylaxis Protonix Cardiology and surgical service is consulted Repeat labs ordered
--- NOTE | 2023-02-15 12:58 | P.CRDCN ---
History of Present Illness History of present illness: HISTORY OF PRESENT ILLNESS: This is a 73-year-old male with a past medical history significant for paroxysmal atrial fibrillation, GI bleed, recent watchman procedure on 01/09/2023, coronary artery disease with previous CABG (VALLE to LAD, SVG to OM, SVG to PDA branch of RCA) in 2005, PCI ostium and mid circumflex in 2014, hypertension, hyperlipidemia, diabetes, former nicotine dependence, and peripheral vascular disease with severe bilateral SFA disease, arthrectomy and prior stenting with Dr. Porras and Dr. Meeks. Patient follows in the office with Dr. Hendricks. We have been asked to see the patient in consultation for GI bleed. Patient examined at the bedside. Patient was recently hospitalized for chest pain and shortness of breath. Patient also was found to be anemic. He remains on aspirin and plavix. He was discharged home in stable condition. He states he was feeling fine for a couple days and was having normal bowel movements. He states on Monday he began having black stools again. He presented to the emergency room for further evaluation. He denies having any chest pain or pressure. He denies any shortness of breath. Hemoglobin is fairly stable at 8.6. He reports taking omeprazole 40 mg twice a day at home. He denies any iron supplemen tation. * EKG reveals sinus mechanism with diffuse T-wave inversions * Chest xray extremity atelectasis in the lower lungs. No definite acute process. * Laboratory data: WBC 6.7. Hemoglobin 8.6. Platelet count 241. Sodium 134. Potassium 4.7. BUN 42. Creatinine 2.13. Magnesium 2.3. * Current home cardiac medications include Plavix 75 mg daily, aspirin 81 mg [id number], Lasix 40 mg twice a day, metoprolol succinate 100 mg twice a day, Ranexa 500 mg twice a day * Most recent echocardiogram obtained in January 2023 revealed ejection fraction 45%, moderate MR, moderate TR * Patient underwent Lexiscan stress test in January 2023 revealing stress-induced ischemia not excluded in anterior apical wall. Hypokinesia with ejection fraction of 36% * Cardiac catheterization history: October 2016 revealing total occlusion of makah circumflex that was stented in March 2015, appears chronic occlusion. Vein graft to the PDA is patent, PDA itself is diffusely diseased. Vein graft to obtuse marginal/PLV branch of circumflex and VALLE to LAD are widely patent. REVIEW OF SYSTEMS: At the time of my exam: CONSTITUTIONAL: Denies fever or chills. HEENT: Denies blurred vision, vision changes, or eye pain. Denies hemoptysis CARDIOVASCULAR: Denies chest pain. Denies orthopnea. Denies PND. Denies palpitations RESPIRATORY: Denies shortness of breath. GASTROINTESTINAL: Denies abdominal pain. Denies nausea or vomiting. HEMATOLOGIC: Denies bleeding disorders. GENITOURINARY: Denies any blood in urine. SKIN: Denies pruitis. Denies rash. PHYSICAL EXAM: VITAL SIGNS: Reviewed. GENERAL: Well-developed in no acute distress. HEENT: Head is normocephalic. Pupils are equal, round. Sclerae anicteric. Mucous membranes of the mouth are moist. Neck supple. No JVD or thyromegaly LUNGS: Respirations even and unlabored. Lungs essentially clear to auscultation bilaterally. HEART: Regular rate and rhythm. S1 and S2 heard. ABDOMEN: Soft. Nondistended. Nontender. EXTREMITIES: Normal range of motion. No clubbing or cyanosis. Peripheral pulses intact. No lower extremity edema NEUROLOGIC: Awake and alert. Oriented x 3. ASSESSMENT: Complaints of black stools x 3 days at home, on aspirin and plavix outpatient Anemia, relatively stable Generalized fatigue Paroxysmal atrial fibrillation S/P recent Watchman device, 01/11/2023 Coronary artery disease s/p CABG (VALLE to LAD, SVG to OM, SVG to PDA branch of RCA) in 2005, PCI ostium and mid circumflex in 2014 Hypertension Hyperlipidemia Diabetes Chronic kidney disease Former nicotine dependence Peripheral vascular disease with severe bilateral SFA disease, atherectomy and prior stenting with Dr. Porras and Dr. Meeks, most recently underwent angiogram, SFA arthrectomy and left SFA PTBA on 03/2022 PLAN: No need to repeat echo as this was performed earlier this month Continue to monitor hemoglobin Risk versus benefit of continuing aspirin and plavix discussed with patient. From a cardiac standpoint, patient needs to stay on aspirin and plavix for 3 months post watchman unless patient develops significant anemia. May benefit from iron supplements. Will defer to primary medicine. General surgery has been consulted for further evaluation Further recommendations pending patient course Nurse practitioner note has been reviewed by physician. Signing provider agrees with the documented findings, assessment, and plan of care. Past Medical History Past Medical History: Atrial Fibrillation, Coronary Artery Disease (CAD), Chest Pain / Angina, Heart Failure, Diabetes Mellitus, GERD/Reflux, GI Bleed, Hyperlipidemia, Hypertension, Myocardial Infarction ([place]), Osteoarthritis (OA), Renal Disease, Vascular Disorder Additional Past Medical History / Comment(s): IDDN type II, CKD stage III, rectal bleed with anemia, PAD, caratid artery disease, chronic low back pain/bi lateral hip pain, past r foot gout, benign colon polyps Last Myocardial Infarction Date:: 09/2016, 06/20/22 History of Any Multi-Drug Resistant Organisms: None Reported Past Surgical History: Cholecystectomy, Coronary Bypass/CABG, Heart Catheterization, Heart Catheterization With Stent, Orthopedic Surgery, Tonsillectomy Additional Past Surgical History / Comment(s): Multiple peripheral revasculariz ation procedures/stents/arthrectomies/ballooning, multiple aortagrams with runoffs, JOIE, , 2005 CABG 3 vessel, EGD, colonoscopies/polypectomies, cyst on back drained. Past Anesthesia/Blood Transfusion Reactions: No Reported Reaction Additional Past Anesthesia/Blood Transfusion Reaction / Comment(s): Pt has received blood in past without reaction. Date of Last Stent Placement:: 2013 Past Psychological History: No Psychological Hx Reported Additional Psychological History / Comment(s): Pt resides with his spouse and is independent. Smoking Status: Former smoker Past Alcohol Use History: None Reported Additional Past Alcohol Use History / Comment(s): Started smoking about 1965, 2 PPD, quit in 2005. Past Drug Use History: None Reported - Past Family History Father Family Medical History: Myocardial Infarction ([place]) Additional Family Medical History / Comment(s): He had a OK in his 30s and had CABG in his 50s. Mother Family Medical History: Pulmonary Embolus Medications and Allergies Home Medications Medication Instructions Recorded Confirmed Type allopurinoL [Zyloprim] 100 mg PO DAILY 03/16/15 02/14/23 History Nitroglycerin Sl Tabs [Nitrostat] 0.4 mg SL Q5M PRN 05/12/16 02/14/23 History Montelukast [Singulair] 10 mg PO DAILY 08/31/17 02/14/23 History Ranolazine [Ranexa] 500 mg PO BID 08/31/17 02/14/23 History Pravastatin Sodium 80 mg PO HS 01/15/19 02/14/23 History Empagliflozin [Jardiance] 12.5 mg PO DAILY 08/04/21 02/14/23 History Cholecalciferol (Vitamin D3) 125 mcg PO HS 02/10/22 02/14/23 History [Vitamin D3 (125 MCG = 5,000 IU)] Magnesium Oxide [Magnesium] 1,000 mg PO DAILY@1200 02/10/22 02/14/23 History Metoprolol Succinate (ER) [Toprol 100 mg PO BID 02/10/22 02/14/23 History XL] Pantoprazole [Protonix] 40 mg PO BID 02/10/22 02/14/23 History Aspirin EC [Ecotrin Low Dose] 81 mg PO Q48H 06/20/22 02/14/23 History Simethicone [Gas-X] 125 mg PO QID PRN 10/18/22 02/14/23 History Cyanocobalamin [Vitamin B-12 1,000 mcg SQ Q60D 10/19/22 02/14/23 History Injection] Clopidogrel [Plavix] 75 mg PO DAILY 01/14/23 02/14/23 History Insulin NPH Human Isophane 64 units SQ DAILY 01/14/23 02/14/23 History [Novolin N] polyethylene glycoL 3350 [Miralax] 17 gm PO DAILY packet 01/17/23 02/14/23 Rx Furosemide [Lasix] 40 mg PO BID@0900,1600 tab 02/07/23 02/14/23 Rx Allergies Allergy/AdvReac Type Severity Reaction Status Date / Time Sulfa (Sulfonamide Allergy Rash/Hives Verified 02/14/23 14:55 Antibiotics) sulfamethoxazole Allergy Rash/Hives Verified 02/14/23 14:55 [From Bactrim] trimethoprim [From Bactrim] Allergy Rash/Hives Verified 02/14/23 14:55 Physical Exam Vitals: Vital Signs Temp Pulse Pulse Resp BP BP Pulse Ox 02/15/23 07:13 98.6 F 71 18 131/70 98 02/15/23 02:00 97.8 F 66 16 126/68 96 02/14/23 19:40 97.4 F L 55 L 16 130/57 98 02/14/23 17:54 68 16 02/14/23 17:41 98.1 F 68 16 152/71 95 02/14/23 12:43 97.1 F L 73 18 111/64 98 Intake and Output 02/14/23 02/15/23 02/15/23 22:59 06:59 14:59 Intake Total 236 236 Balance 236 236 Intake: Oral 236 236 Other: Voiding Method Toilet Toilet # Voids 1 Weight 115.666 kg Results 02/15/23 11:13 02/14/23 13:37 Cardiac Enzymes 02/14/23 Range/Units 13:37 AST 36 (17-59) U/L Coagulation 02/14/23 Range/Units 13:37 PT 11.1 (9.0-12.0) sec APTT 21.5 L (22.0-30.0) sec CBC 02/14/23 02/14/23 02/15/23 Range/Units 13:37 22:12 11:13 WBC 6.9 7.1 6.7 (3.8-10.6) k/uL RBC 3.48 L 3.40 L 3.51 L (4.30-5.90) m/uL Hgb 8.6 L 8.1 L 8.6 L (13.0-17.5) gm/dL Hct 27.7 L 27.4 L 28.6 L (39.0-53.0) % Plt Count 275 252 241 (150-450) k/uL Comprehensive Metabolic Panel 02/14/23 Range/Units 13:37 Sodium 134 L (137-145) mmol/L Potassium 4.7 (3.5-5.1) mmol/L Chloride 97 L (98-107) mmol/L Carbon Dioxide 27 (22-30) mmol/L BUN 42 H (9-20) mg/dL Creatinine 2.13 H (0.66-1.25) mg/dL Glucose 202 H (74-99) mg/dL Calcium 8.6 (8.4-10.2) mg/dL AST 36 (17-59) U/L ALT 15 (4-49) U/L Alkaline Phosphatase 95 (38-126) U/L Total Protein 6.7 (6.3-8.2) g/dL Albumin 4.1 (3.5-5.0) g/dL Current Medications Generic Name Dose Route Start Last Admin Trade Name Freq PRN Reason Stop Dose Admin Acetaminophen 650 mg 06/20/23 14:38 Acetaminophen Tab 325 Mg Tab PO Q6HR PRN Mild Pain or Fever > 100.5 Allopurinol 100 mg 02/16/23 09:00 Allopurinol 100 Mg Tab PO DAILY [facility] Cholecalciferol 125 mcg 02/15/23 21:00 Cholecalciferol 125 Mcg (5000 Iu) Tablet PO HS [facility] Cyanocobalamin 1,000 mcg 02/15/23 10:00 02/15/23 12:06 Cyanocobalamin 1,000 Mcg/Ml 1 Ml Vial SQ Not Given Q60D [facility] Dapagliflozin 5 mg 02/16/23 09:00 Dapagliflozin Propanediol 5 Mg Tablet PO DAILY [facility] Dextrose/Water 25 ml 02/14/23 18:34 Dextrose 50% Syringe 50 Ml IVP PER PROTOCOL PRN Hypoglycemia Protocol Dextrose/Water 50 ml 02/14/23 18:34 Dextrose 50% Syringe 50 Ml IVP PER PROTOCOL PRN Hypoglycemia Protocol Furosemide 40 mg 02/15/23 16:00 Furosemide 40 Mg Tab PO BID@0900,1600 [facility] Insulin Aspart 0 unit 02/14/23 21:00 02/15/23 12:01 Insulin Aspart (Novolog) 100 Unit/Ml Vial SQ 3 unit ACHS CHERELLE Administration Protocol Magnesium Oxide 800 mg 02/15/23 12:00 02/15/23 12:01 Magnesium Oxide 400 Mg Tab PO 800 mg DAILY@1200 [facility] Administration Metoprolol Succinate 100 mg 02/15/23 21:00 Metoprolol Succinate (Er) 100 Mg Tab.Er.24h PO BID [facility] Montelukast Sodium 10 mg 02/16/23 09:00 Montelukast 10 Mg Tab PO DAILY [facility] Naloxone HCl 0.2 mg 02/14/23 14:38 Naloxone 0.4 Mg/Ml 1 Ml Vial IV Q2M PRN Opioid Reversal Pantoprazole Sodium 40 mg 02/14/23 21:00 02/15/23 08:27 Pantoprazole 40 Mg/10 Ml Vial IVP 40 mg BID [facility] Administration Polyethylene Glycol 17 gm 02/16/23 09:00 Polyethylene Glycol 3350 17 Gm Powd.Pack PO DAILY [facility] Pravastatin Sodium 80 mg 02/15/23 21:00 Pravastatin Sodium 80 Mg Tab PO HS [facility] Ranolazine 500 mg 02/15/23 21:00 Ranolazine 500 Mg Tab.Er.12h PO BID [facility] Simethicone 120 mg 02/15/23 09:11 Simethicone 80 Mg Chewable PO QID PRN gas/bloating Intake and Output 02/14/23 02/15/23 02/15/23 22:59 06:59 14:59 Intake Total 236 236 Balance 236 236 Intake: Oral 236 236 Other: Voiding Method Toilet Toilet # Voids 1 Weight 115.666 kg 02/15/23 11:13 02/14/23 13:37
[2023-02-15] MEDS: CLOPIDOGREL 75 MG TAB PO SCH (13:51)
[2023-02-15] MEDS: ASPIRIN 81 MG PO SCH (13:51)
--- NOTE | 2023-02-15 15:42 | P.GSCN ---
History of Present Illness Consult date: 02/15/23 History of present illness: CHIEF COMPLAINT: GI bleed HISTORY OF PRESENT ILLNESS: This is a 73-year-old male with a known history of GI bleed. He presents to the hospital with complaints of black stools for the past 4 days. He reports having one to 3 bowel movements daily. He denies any abdominal pain. Denies any nausea or vomiting. He is on aspirin and Plavix due to having the watchman procedure completed in 01/11/2023. His last EGD and colonoscopy was in October 2022 for evaluation of GI bleeding had revealed gastritis and diverticulosis. He does take omeprazole twice a day at home. Patient seen by cardiology the recommending that patient does stay on aspirin and Plavix unless he has significant bleeding. Patient also reports that he had a Endoscopy a Couple Years Ago That Was Reported Negative. Surgical service consulted in regards to GI bleed. PAST MEDICAL HISTORY: Atrial Fibrillation, Coronary Artery Disease (CAD), Chest Pain / Angina, Heart Failure, Diabetes Mellitus, GERD/Reflux, GI Bleed, Hyperlipidemia, Hypertension, Myocardial Infarction ([place]), Osteoarthritis (OA), Renal Disease, Vascular Disorder, chronic kidney disease PAST SURGICAL HISTORY: Cholecystectomy, Coronary Bypass/CABG, Heart Catheterization, Heart Catheterization With Stent, Orthopedic Surgery, Tonsillectomy MEDICATIONS: See below ALLERGIES: See below SOCIAL HISTORY: No illicit drug use. REVIEW OF SYSTEMS: CONSTITUTIONAL: Denies fever or chills. HEENT: Denies blurred vision, vision changes, or eye pain. Denies hemoptysis CARDIOVASCULAR: Denies chest pain or pressure. RESPIRATORY: No shortness of breath. GASTROINTESTINAL: See HPI for pertinent findings HEMATOLOGIC: Denies bleeding disorders. GENITOURINARY: Denies any blood in urine or increased urinary frequency. SKIN: Denies pruitis. Denies rash. PHYSICAL EXAM: VITAL SIGNS: Reviewed GENERAL: Well-developed in no acute distress. HEENT: No sclera icterus. Extraocular movements grossly intact. Moist buccal mucosa. Head is atraumatic, normocephalic. No nasal drainage. ABDOMEN: Soft. Obese. Nondistended. Tenderness with palpation to right lower quadrant. NEUROLOGIC: Alert and oriented. Cranial nerves II through XII grossly intact. LABORATORY DATA: WBC 6.7 hgb 8.6 platelets 241 Sodium 134 potassium 4.7 creatinine 2.13 IMAGING: Chest x-ray strandy atelectasis of the lower lungs. No definite acute process. ASSESSMENT: 1. Recurrent GI bleed with melanotic stools 2. Anemia secondary to acute GI bleed 3. Status post watchman procedure 01/11/2023 for A. fib PLAN: -Patient scheduled for EGD tomorrow with Dr. Dejesus -Keep patient nothing by mouth after midnight -Continue IV Protonix twice a day -Monitor patient on Plavix and Aspirin due to recent Watchman procedure -Continue monitoring hemoglobin -Continue to monitor for any signs or symptoms of bleeding Thank you for this consultation Physician Medical Receptionist Assistant note has been reviewed by physician. Signing provider agrees with the documented findings, assessment, and plan of care. Past Medical History Past Medical History: Atrial Fibrillation, Coronary Artery Disease (CAD), Chest Pain / Angina, Heart Failure, Diabetes Mellitus, GERD/Reflux, GI Bleed, Hyperlipidemia, Hypertension, Myocardial Infarction ([place]), Osteoarthritis (OA), Renal Disease, Vascular Disorder Additional Past Medical History / Comment(s): IDDN type II, CKD stage III, rectal bleed with anemia, PAD, caratid artery disease, chronic low back pain/bilateral hip pain, past r foot gout, benign colon polyps Last Myocardial Infarction Date:: 09/2016, 06/20/22 History of Any Multi-Drug Resistant Organisms: None Reported Past Surgical History: Cholecystectomy, Coronary Bypass/CABG, Heart Catheterization, Heart Catheterization With Stent, Orthopedic Surgery, Tonsillectomy Additional Past Surgical History / Comment(s): Multiple peripheral revascularization procedures/stents/arthrectomies/ballooning, multiple aortagrams with runoffs, JOIE, , 2006 CABG 3 vessel, EGD, colonoscopi es/polypectomies, cyst on back drained. Past Anesthesia/Blood Transfusion Reactions: No Reported Reaction Additional Past Anesthesia/Blood Transfusion Reaction / Comm: Pt has received blood in past without reaction. Date of Last Stent Placement:: 2013 Past Psychological History: No Psychological Hx Reported Additional Psychological History / Comment(s): Pt resides with his spouse and is independent. Smoking Status: Former smoker Past Alcohol Use History: None Reported Additional Past Alcohol Use History / Comment(s): Started smoking about 1965, 2 PPD, quit in 2005. Past Drug Use History: None Reported - Past Family History Father Family Medical History: Myocardial Infarction ([place]) Additional Family Medical History / Comment(s): He had a DE in his 30s and had CABG in his 50s. Mother Family Medical History: Pulmonary Embolus Medications and Allergies Home Medications Medication Instructions Recorded Confirmed Type allopurinoL [Zyloprim] 100 mg PO DAILY 03/16/15 02/14/23 History Nitroglycerin Sl Tabs [Nitrostat] 0.4 mg SL Q5M PRN 05/12/16 02/14/23 History Montelukast [Singulair] 10 mg PO DAILY 08/31/17 02/14/23 History Ranolazine [Ranexa] 500 mg PO BID 08/31/17 02/14/23 History Pravastatin Sodium 80 mg PO HS 01/15/19 02/14/23 History Empagliflozin [Jardiance] 12.5 mg PO DAILY 08/04/21 02/14/23 History Cholecalciferol (Vitamin D3) 125 mcg PO HS 02/10/22 02/14/23 History [Vitamin D3 (125 MCG = 5,000 IU)] Magnesium Oxide [Magnesium] 1,000 mg PO DAILY@1200 02/10/22 02/14/23 History Metoprolol Succinate (ER) [Toprol 100 mg PO BID 02/10/22 02/14/23 History XL] Pantoprazole [Protonix] 40 mg PO BID 02/10/22 02/14/23 History Aspirin EC [Ecotrin Low Dose] 81 mg PO Q48H 06/20/22 02/14/23 History Simethicone [Gas-X] 125 mg PO QID PRN 10/18/22 02/14/23 History Cyanocobalamin [Vitamin B-12 1,000 mcg SQ Q60D 10/19/22 02/14/23 History Injection] Clopidogrel [Plavix] 75 mg PO DAILY 01/14/23 02/14/23 History Insulin NPH Human Isophane 64 units SQ DAILY 01/14/23 02/14/23 History [Novolin N] polyethylene glycoL 3350 [Miralax] 17 gm PO DAILY packet 01/17/23 02/14/23 Rx Furosemide [Lasix] 40 mg PO BID@0900,1600 tab 02/07/23 02/14/23 Rx Allergies Allergy/AdvReac Type Severity Reaction Status Date / Time Sulfa (Sulfonamide Allergy Rash/Hives Verified 02/14/23 14:55 Antibiotics) sulfamethoxazole Allergy Rash/Hives Verified 02/14/23 14:55 [From Bactrim] trimethoprim [From Bactrim] Allergy Rash/Hives Verified 02/14/23 14:55 Surgical - Exam Vital Signs Temp Pulse Resp BP Pulse Ox 97.1 F L 73 18 111/64 98 02/14/23 12:43 02/14/23 12:43 02/14/23 12:43 02/14/23 12:43 02/14/23 12:43 Results - Labs 02/15/23 11:13 02/14/23 13:37 Abnormal Lab Results - Last 24 Hours (Table) 02/14/23 02/14/23 02/14/23 Range/Units 13:37 13:37 20:35 RBC (4.30-5.90) m/uL Hgb (13.0-17.5) gm/dL Hct (39.0-53.0) % MCH (25.0-35.0) pg MCHC (31.0-37.0) g/dL RDW (11.5-15.5) % APTT 21.5 L (22.0-30.0) sec Sodium 134 L (137-145) mmol/L Chloride 97 L (98-107) mmol/L BUN 42 H (9-20) mg/dL Creatinine 2.13 H (0.66-1.25) mg/dL Glucose 202 H (74-99) mg/dL POC Glucose (mg/dL) 224 H (70-110) mg/dL 02/14/23 02/15/23 02/15/23 Range/Units 22:12 06:01 11:13 RBC 3.40 L 3.51 L (4.30-5.90) m/uL Hgb 8.1 L 8.6 L (13.0-17.5) gm/dL Hct 27.4 L 28.6 L (39.0-53.0) % MCH 23.8 L 24.4 L (25.0-35.0) pg MCHC 29.5 L 30.0 L (31.0-37.0) g/dL RDW 18.2 H 18.2 H (11.5-15.5) % APTT (22.0-30.0) sec Sodium (137-145) mmol/L Chloride (98-107) mmol/L BUN (9-20) mg/dL Creatinine (0.66-1.25) mg/dL Glucose (74-99) mg/dL POC Glucose (mg/dL) 140 H (70-110) mg/dL 02/15/23 Range/Units 11:40 RBC (4.30-5.90) m/uL Hgb (13.0-17.5) gm/dL Hct (39.0-53.0) % MCH (25.0-35.0) pg MCHC (31.0-37.0) g/dL RDW (11.5-15.5) % APTT (22.0-30.0) sec Sodium (137-145) mmol/L Chloride (98-107) mmol/L BUN (9-20) mg/dL Creatinine (0.66-1.25) mg/dL Glucose (74-99) mg/dL POC Glucose (mg/dL) 162 H (70-110) mg/dL Diabetes panel 02/14/23 Range/Units 13:37 Sodium 134 L (137-145) mmol/L Potassium 4.7 (3.5-5.1) mmol/L Chloride 97 L (98-107) mmol/L Carbon Dioxide 27 (22-30) mmol/L BUN 42 H (9-20) mg/dL Creatinine 2.13 H (0.66-1.25) mg/dL Glucose 202 H (74-99) mg/dL Calcium 8.6 (8.4-10.2) mg/dL AST 36 (17-59) U/L ALT 15 (4-49) U/L Alkaline Phosphatase 95 (38-126) U/L Total Protein 6.7 (6.3-8.2) g/dL Albumin 4.1 (3.5-5.0) g/dL Calcium panel 02/14/23 Range/Units 13:37 Calcium 8.6 (8.4-10.2) mg/dL Albumin 4.1 (3.5-5.0) g/dL Pituitary panel 02/14/23 Range/Units 13:37 Sodium 134 L (137-145) mmol/L Potassium 4.7 (3.5-5.1) mmol/L Chloride 97 L (98-107) mmol/L Carbon Dioxide 27 (22-30) mmol/L BUN 42 H (9-20) mg/dL Creatinine 2.13 H (0.66-1.25) mg/dL Glucose 202 H (74-99) mg/dL Calcium 8.6 (8.4-10.2) mg/dL Adrenal panel 02/14/23 Range/Units 13:37 Sodium 134 L (137-145) mmol/L Potassium 4.7 (3.5-5.1) mmol/L Chloride 97 L (98-107) mmol/L Carbon Dioxide 27 (22-30) mmol/L BUN 42 H (9-20) mg/dL Creatinine 2.13 H (0.66-1.25) mg/dL Glucose 202 H (74-99) mg/dL Calcium 8.6 (8.4-10.2) mg/dL Total Bilirubin 0.6 (0.2-1.3) mg/dL AST 36 (17-59) U/L ALT 15 (4-49) U/L Alkaline Phosphatase 95 (38-126) U/L Total Protein 6.7 (6.3-8.2) g/dL Albumin 4.1 (3.5-5.0) g/dL
[2023-02-15 16:37] LABS: Glucose,Whole Blood 198 mg/dL (70-110)
[2023-02-15] MEDS: FUROSEMIDE 40 MG TAB PO SCH (17:11)
[2023-02-15] MEDS: RANOLAZINE 500 MG TAB.ER.12H PO SCH (20:35)
[2023-02-15] MEDS: METOPROLOL SUCCINATE (ER) 100 MG TAB.ER.24H PO SCH (20:35)
[2023-02-15] MEDS: PRAVASTATIN SODIUM 80 MG TAB PO SCH (20:35)
[2023-02-15] MEDS: CHOLECALCIFEROL 125 MCG (5000 IU) TABLET PO SCH (20:35)
[2023-02-15 20:49] LABS: Glucose,Whole Blood 202 mg/dL (70-110)
[2023-02-16 06:19] LABS: Glucose,Whole Blood 161 mg/dL (70-110)
[2023-02-16] MEDS: INSULIN ASPART (NovoLOG) 100 UNIT/ML VIAL SQ SCH ×4 (06:28→20:24)
[2023-02-16] MEDS: FUROSEMIDE 40 MG TAB PO SCH ×2 (09:25→15:40)
[2023-02-16] MEDS: allopurinoL 100 MG TAB PO SCH (09:25)
[2023-02-16] MEDS: METOPROLOL SUCCINATE (ER) 100 MG TAB.ER.24H PO SCH ×2 (09:26→21:34)
[2023-02-16] MEDS: ASPIRIN 81 MG PO SCH (09:26)
[2023-02-16] MEDS: PANTOPRAZOLE 40 MG/10 ML VIAL IVP SCH ×2 (09:26→20:24)
[2023-02-16] MEDS: CLOPIDOGREL 75 MG TAB PO SCH (09:26)
[2023-02-16] MEDS: MAGNESIUM OXIDE 400 MG TAB PO SCH (09:26)
[2023-02-16] MEDS: polyethylene glycoL 3350 17 GM POWD.PACK PO SCH (09:27)
[2023-02-16] MEDS: MONTELUKAST 10 MG TAB PO SCH (09:27)
[2023-02-16] MEDS: DAPAGLIFLOZIN PROPANEDIOL 5 MG TABLET PO SCH (09:27)
[2023-02-16] MEDS: RANOLAZINE 500 MG TAB.ER.12H PO SCH ×2 (09:27→21:34)
[2023-02-16] MEDS ORDERED: PROPOFOL 10 MG/ML 20 ML VIAL IV ONE (11:01)
[2023-02-16] MEDS ORDERED: LIDOCAINE 2% INJ 20 MG/ML (2 ML VIAL) ONE (11:01)
[2023-02-16] MEDS ORDERED: IV FLUID CONTINUATION 1,000 ML IV ONE (11:05)
[2023-02-16 11:12] LABS: Basophils # (A) 0.02 X 10*3/uL (0.00-0.10); Basophils % (A) 0.3 %; Eosinophils # (A) 0.12 X 10*3/uL (0.04-0.35); Eosinophils % (A) 1.8 %; HCT 27.8 % (39.6-50.0); HGB 7.8 d/dL (12.0-15.0); Lymphocytes # (A) 1.42 X 10*3/uL (0.90-5.00); Lymphocytes % (A) 21.4 %; MCH 23.2 pg (27.0-32.0); MCHC 28.1 d/dL (32.0-37.0); MCV 82.7 FL (80.0-97.0); Mean Platelet Volume 10.2 FL (9.5-12.2); NRBC Per 100 WBC 0 X 10*3/uL (0.00-0.01); Neutrophils # (A) 4.43 X 10*3/uL (1.80-7.70); Neutrophils % (A) 66.9 %; Platelet Count 256 X 10*3/uL (140-440); RBC 3.36 X 10*6/uL (4.40-5.60); RDW 18.6 % (11.5-14.5); WBC 6.63 X 10*3/uL (4.50-10.00)
[2023-02-16 11:18] LABS: ALT 10 U/L (10-49); AST 11 U/L (14-35); Albumin 3.9 d/dL (3.8-4.9); Albumin/Globulin Ratio 1.77 Ratio (1.60-3.17); Alkaline Phosphatase 93 U/L (41-126); BUN/Creat Ratio 14.71 Ratio (12.00-20.00); Calcium 8.8 mg/dL (8.7-10.3); Carbon Dioxide 27.6 mmol/L (21.6-31.8); Chloride 100 mmol/L (96-109); Globulin 2.2 d/dL (1.6-3.3); Glucose 135 mg/dL (70-110); Potassium 4.1 mmol/L (3.5-5.5); Sodium 139 mmol/L (135-145); Total Bilirubin 0.3 mg/dL (0.3-1.2); Total Protein 6.1 d/dL (6.2-8.2)
--- NOTE | 2023-02-16 11:18 | P.OP ---
Date of Procedure: 02/16/23 Preoperative Diagnosis: GI bleed Postoperative Diagnosis: Mild antral gastritis No evidence of upper GI bleed Procedure(s) Performed: EGD Anesthesia: MAC Surgeon: Roly Dejesus Pathology: none sent Condition: stable Disposition: PACU Description of Procedure: The patient's placed on the endoscopy table in the lateral position. He received IV sedation. The gastro-/oropharynx passed in the esophagus into the stomach. Scope was then placed through the pylorus. The first and second portion of the duodenum appeared normal. There is no evidence of any blood in the duodenum. Scope summer back the antrum was minimal inflammation. Scope was retroflexed remainder stomach appeared normal. There is no blood seen in the stomach. The GE junction was at 40 cm per the distal esophagus appeared normal. Proximal esophagus appeared normal. Scope withdrawn for patient.
--- NOTE | 2023-02-16 11:38 | P.PN ---
Subjective HISTORY OF PRESENT ILLNESS: This is a 73-year-old male with a past medical history significant for paroxysmal atrial fibrillation, GI bleed, recent watchman procedure on 01/09/2023, coronary artery disease with previous CABG (VALLE to LAD, SVG to OM, SVG to PDA branch of RCA) in 2005, PCI ostium and mid circumflex in 2014, hypertension, hyperlipidemia, diabetes, former nicotine dependence, and peripheral vascular disease with severe bilateral SFA disease, arthrectomy and prior stenting with Dr. Porras and Dr. Meeks. Patient follows in the office with Dr. Hendricks. We have been asked to see the patient in consultation for GI bleed. Patient examined at the bedside. Patient was recently hospitalized for chest pain and shortness of breath. Patient also was found to be anemic. He remains on aspirin and plavix. He was discharged home in stable condition. He states he was feeling fine for a couple days and was having normal bowel movements. He states on Monday he began having black stools again. He presented to the emergency room for further evaluation. He denies having any chest pain or pressure. He denies any shortness of breath. Hemoglobin is fairly stable at 8.6. He reports taking omeprazole 40 mg twice a day at home. He denies any iron supplementation. * EKG reveals sinus mechanism with diffuse T-wave inversions * Chest xray extremity atelectasis in the lower lungs. No definite acute process. * Laboratory data: WBC 6.7. Hemoglobin 8.6. Platelet count 241. Sodium 134. Potassium 4.7. BUN 42. Creatinine 2.13. Magnesium 2.3. * Current home cardiac medications include Plavix 75 mg daily, aspirin 81 mg [id number], Lasix 40 mg twice a day, metoprolol succinate 100 mg twice a day, Ranexa 500 mg twice a day * Most recent echocardiogram obtained in January 2023 revealed ejection fraction 45%, moderate MR, moderate TR * Patient underwent Lexiscan stress test in January 2023 revealing stress-induced ischemia not excluded in anterior apical wall. Hypokinesia with ejection fraction of 36% * Cardiac catheterization history: October 2016 revealing total occlusion of [place] circumflex that was stented in March 2015, appears chronic occlusion. Vein graft to the PDA is patent, PDA itself is diffusely diseased. Vein graft to obtuse marginal/PLV branch of circumflex and VALLE to LAD are widely patent. 02/16 Patient seen and examined. Patient denies any chest pain or pressure. Denies any shortness breath. Hemoglobin down to 7.8 and he has been receiving some IV fluids and may be some component of dilution. He was placed back on aspirin and Plavix secondary to risk of stroke with recent watchman procedure. He did have 1 dark stool last night however none today. He underwent EGD with no significant active bleed and gastritis. Ferritin was low at 11. PHYSICAL EXAM: VITAL SIGNS: Reviewed. GENERAL: Well-developed in no acute distress. HEENT: Head is normocephalic. Pupils are equal, round. Sclerae anicteric. Mucous membranes of the mouth are moist. Neck supple. No JVD or thyromegaly LUNGS: Respirations even and unlabored. Lungs essentially clear to auscultation bilaterally. HEART: Regular rate and rhythm. S1 and S2 heard. ABDOMEN: Soft. Nondistended. Nontender. EXTREMITIES: Normal range of motion. No clubbing or cyanosis. Peripheral pulses intact. No lower extremity edema NEUROLOGIC: Awake and alert. Oriented x 3. ASSESSMENT: Complaints of black stools x 3 days at home, on aspirin and plavix outpatient Anemia, relatively stable Generalized fatigue Paroxysmal atrial fibrillation S/P recent Watchman device, 01/11/2023 Coronary artery disease s/p CABG (VALLE to LAD, SVG to OM, SVG to PDA branch of RCA) in 2005, PCI ostium and mid circumflex in 2014 Hypertension Hyperlipidemia Diabetes Chronic kidney disease Former nicotine dependence Peripheral vascular disease with severe bilateral SFA disease, atherectomy and prior stenting with Dr. Porras and Dr. Meeks, most recently underwent angiogram, SFA arthrectomy and left SFA PTBA on 03/2022 PLAN: No need to repeat echo as this was performed earlier this month Continue to monitor hemoglobin Risk versus benefit of continuing aspirin and plavix discussed with patient. From a cardiac standpoint, patient needs to stay on aspirin and plavix for 3 months post watchman unless patient develops significant anemia given risk of stroke vs bleed. If more significant anemia we will discontinue aspirin. Iron levels are decreased and recommend IV iron supplementation and possibly oral iron. Recommend continue to monitor overnight and if hemoglobin stable possible discharge. Further recommendations pending patient course Objective - Vital Signs Vital signs: Vital Signs Temp 97.8 F 02/16/23 07:33 Pulse 43 L 02/16/23 07:33 Resp 18 02/16/23 10:53 BP 122/51 02/16/23 07:33 Pulse Ox 95 02/16/23 07:33 FiO2 Intake & Output 02/15/23 02/16/23 02/16/23 18:59 06:59 18:59 Intake Total 696 50 Balance 696 50 Intake: IV 50 Oral 696 Other: Voiding Method Toilet Toilet # Voids 2 1 - Labs CBC & Chem 7: 02/16/23 07:18 02/16/23 07:18 Labs: Abnormal Lab Results - Last 24 Hours (Table) 02/15/23 02/15/23 02/15/23 Range/Units 11:13 11:13 11:40 RBC 3.51 L (4.30-5.90) m/uL Hgb 8.6 L (13.0-17.5) gm/dL Hct 28.6 L (39.0-53.0) % MCH 24.4 L (25.0-35.0) pg MCHC 30.0 L (31.0-37.0) g/dL RDW 18.2 H (11.5-15.5) % Creatinine (0.6-1.5) mg/dL Est GFR (CKD-EPI) (>=60) Glucose (70-110) mg/dL POC Glucose (mg/dL) 162 H (70-110) mg/dL Ferritin 10.3 L (22.0-322.0) ng/mL AST (14-35) U/L Total Protein (6.2-8.2) d/dL 02/15/23 02/15/23 02/16/23 Range/Units 16:35 20:48 06:17 RBC (4.30-5.90) m/uL Hgb (13.0-17.5) gm/dL Hct (39.0-53.0) % MCH (25.0-35.0) pg MCHC (31.0-37.0) g/dL RDW (11.5-15.5) % Creatinine (0.6-1.5) mg/dL Est GFR (CKD-EPI) (>=60) Glucose (70-110) mg/dL POC Glucose (mg/dL) 198 H 202 H 161 H (70-110) mg/dL Ferritin (22.0-322.0) ng/mL AST (14-35) U/L Total Protein (6.2-8.2) d/dL 02/16/23 02/16/23 Range/Units 07:18 07:18 RBC 3.36 L (4.30-5.90) m/uL Hgb 7.8 L (13.0-17.5) gm/dL Hct 27.8 L (39.0-53.0) % MCH 23.2 L (25.0-35.0) pg MCHC 28.1 L (31.0-37.0) g/dL RDW 18.6 H (11.5-15.5) % Creatinine 1.7 H (0.6-1.5) mg/dL Est GFR (CKD-EPI) 42 L (>=60) Glucose 135 H (70-110) mg/dL POC Glucose (mg/dL) (70-110) mg/dL Ferritin (22.0-322.0) ng/mL AST 11 L (14-35) U/L Total Protein 6.1 L (6.2-8.2) d/dL
[2023-02-16 11:43] LABS: Glucose,Whole Blood 150 mg/dL (70-110)
[2023-02-16] MEDS ORDERED: SODIUM FERRIC GLUCONAT-SUCROSE 125 MG in SODIUM CHLORIDE 0.9% 100 ML IVPB ONE (13:53)
--- NOTE | 2023-02-16 15:10 | P.PN ---
Subjective Progress Note Date: 02/16/23 Kevin Mcknight, is a 73-year-old male who presented to [facility] emergency room with a chief complaint of GI bleed. Patient has a recurring history of GI bleed secondary to anticoagulation. Patient is status post watchman procedure in which she is maintained on aspirin and Plavix. Dominik mccarthy recently had admission in which she was seen by surgical and cardiology services. Patient states he days after discharge he started to having episodes of dark stool. Patient denies any bloody emesis. He was evaluated in the emergency room vital examination on presentation revealed temp 97.8, heart rate 66, respiratory rate 16, blood pressure 126/60 with a pulse ox 96% on room air. Laboratory data reveals hemoglobin 8.1 Testing in the emergency room revealed chest x-ray completed showing strandy atelectasis in the lower lungs no definitive acute process Patient was admitted to medical floor for further evaluation and treatment. Cardiology and surgical services consulted Past medical history is significant for CHF, coronary artery disease, atrial fibrillation status post watchman procedure on January 11. Previous history of rectal bleeding, hypertension, hyperlipidemia and insulin-dependent diabetes mellitus On review of systems Patient denies chest pain or shortness of breath. Patient denies nausea vomiting diarrhea. Patient denies any urinary burning or frequency. Patient reports he has not had bowel movement since admission On 02/15/2023 patient is alert and oriented 3. Vital signs of 98.6, heart rate 71 Rate 18, blood pressure 131/70 with pulse of 98% on room air. At this time patient denies chest pain or shortness of breath. Patient denies nausea vomiting or diarrhea. Patient denies any urinary burning or frequency. Awaiting cardiology and surgical implant. On 02/16/2023 patient was seen and examined on the medical floor he is alert and oriented 3 in no apparent distress he denies any new episodes of black melanotic stool, he underwent EGD today that revealed evidence of gastritis, iron tests are low patient is scheduled to have IV iron infusion, hemoglobin today 7.5, will continue with current management will monitor symptoms and blood counts closely, continue with aspirin and Plavix per cardiology recommendation at this time. Objective - Vital Signs Vital signs: Vital Signs Temp 98.4 F 02/16/23 10:20 Pulse 60 02/16/23 10:20 Resp 18 02/16/23 10:53 BP 122/66 02/16/23 10:20 Pulse Ox 99 02/16/23 10:20 FiO2 Intake & Output 02/15/23 02/16/23 02/16/23 18:59 06:59 18:59 Intake Total 696 50 Balance 696 50 Intake: IV 50 Oral 696 Other: Voiding Method Toilet Toilet # Voids 2 1 - Exam In general patient is alert and oriented x 3 in no distress HEENT head normocephalic and atraumatic Neck is supple no JVD no goiter no lymphadenopathy no carotid bruit Chest examination is clear to auscultation no crackles no wheezing Cardiac exam reveals regular heart sounds S1 and S2 no gallops no murmurs Abdomen is soft nontender no organomegaly with normal bowel sounds Extremity exam reveals no edema no cyanosis or clubbing Neurological examination reveals no gross focal deficits - Labs CBC & Chem 7: 02/16/23 07:18 02/16/23 07:18 Labs: Abnormal Lab Results - Last 24 Hours (Table) 02/15/23 02/15/23 02/15/23 Range/Units 11:13 16:35 20:48 RBC (4.40-5.60) X 10*6/uL Hgb (12.0-15.0) d/dL Hct (39.6-50.0) % MCH (27.0-32.0) pg MCHC (32.0-37.0) d/dL RDW (11.5-14.5) % Creatinine (0.6-1.5) mg/dL Est GFR (CKD-EPI) (>=60) Glucose (70-110) mg/dL POC Glucose (mg/dL) 198 H 202 H (70-110) mg/dL Ferritin 10.3 L (22.0-322.0) ng/mL AST (14-35) U/L Total Protein (6.2-8.2) d/dL 02/16/23 02/16/23 02/16/23 Range/Units 06:17 07:18 07:18 RBC 3.36 L (4.40-5.60) X 10*6/uL Hgb 7.8 L (12.0-15.0) d/dL Hct 27.8 L (39.6-50.0) % MCH 23.2 L (27.0-32.0) pg MCHC 28.1 L (32.0-37.0) d/dL RDW 18.6 H (11.5-14.5) % Creatinine 1.7 H (0.6-1.5) mg/dL Est GFR (CKD-EPI) 42 L (>=60) Glucose 135 H (70-110) mg/dL POC Glucose (mg/dL) 161 H (70-110) mg/dL Ferritin (22.0-322.0) ng/mL AST 11 L (14-35) U/L Total Protein 6.1 L (6.2-8.2) d/dL 02/16/23 Range/Units 11:42 RBC (4.40-5.60) X 10*6/uL Hgb (12.0-15.0) d/dL Hct (39.6-50.0) % MCH (27.0-32.0) pg MCHC (32.0-37.0) d/dL RDW (11.5-14.5) % Creatinine (0.6-1.5) mg/dL Est GFR (CKD-EPI) (>=60) Glucose (70-110) mg/dL POC Glucose (mg/dL) 150 H (70-110) mg/dL Ferritin (22.0-322.0) ng/mL AST (14-35) U/L Total Protein (6.2-8.2) d/dL Assessment and Plan Assessment: 1. Anemia secondary to GI bleed 2. History of atrial fibrillation status post watchman procedure 1 month ago 3. History of CHF 4. History of previous episodes of rectal bleeding 5. History of essential hypertension 6. History of hyperlipidemia 7. History of insulin-dependent diabetes mellitus DVT prophylaxis SCDs. GI prophylaxis Protonix Cardiology and surgical service is consulted Repeat labs ordered
--- NOTE | 2023-02-16 15:11 | P.PN ---
Subjective Progress Note Date: 02/16/23 Kevin Mcknight, is a 73-year-old male who presented to [facility] emergency room with a chief complaint of GI bleed. Patient has a recurring history of GI bleed secondary to anticoagulation. Patient is status post watchman procedure in which she is maintained on aspirin and Plavix. Dominik mccarthy recently had admission in which she was seen by surgical and cardiology services. Patient states he days after discharge he started to having episodes of dark stool. Patient denies any bloody emesis. He was evaluated in the emergency room vital examination on presentation revealed temp 97.8, heart rate 66, respiratory rate 16, blood pressure 126/60 with a pulse ox 96% on room air. Laboratory data reveals hemoglobin 8.1 Testing in the emergency room revealed chest x-ray completed showing strandy atelectasis in the lower lungs no definitive acute process Patient was admitted to medical floor for further evaluation and treatment. Cardiology and surgical services consulted Past medical history is significant for CHF, coronary artery disease, atrial fibrillation status post watchman procedure on January 11. Previous history of rectal bleeding, hypertension, hyperlipidemia and insulin-dependent diabetes mellitus On review of systems Patient denies chest pain or shortness of breath. Patient denies nausea vomiting diarrhea. Patient denies any urinary burning or frequency. Patient reports he has not had bowel movement since admission On 02/15/2023 patient is alert and oriented 3. Vital signs of 98.6, heart rate 71 Rate 18, blood pressure 131/70 with pulse of 98% on room air. At this time patient denies chest pain or shortness of breath. Patient denies nausea vomiting or diarrhea. Patient denies any urinary burning or frequency. Awaiting cardiology and surgical implant Objective - Vital Signs Vital signs: Vital Signs Temp 97.8 F 02/16/23 07:33 Pulse 43 L 02/16/23 07:33 Resp 18 02/16/23 10:53 BP 122/51 02/16/23 07:33 Pulse Ox 95 02/16/23 07:33 FiO2 Intake & Output 02/15/23 02/16/23 02/16/23 18:59 06:59 18:59 Intake Total 696 Balance 696 Intake: Oral 696 Other: Voiding Method Toilet Toilet # Voids 2 1 - Exam In general patient is alert and oriented x 3 in no distress HEENT head normocephalic and atraumatic Neck is supple no JVD no goiter no lymphadenopathy no carotid bruit Chest examination is clear to auscultation no crackles no wheezing Cardiac exam reveals regular heart sounds S1 and S2 no gallops no murmurs Abdomen is soft nontender no organomegaly with normal bowel sounds Extremity exam reveals no edema no cyanosis or clubbing Neurological examination reveals no gross focal deficits - Labs CBC & Chem 7: 02/15/23 11:13 02/14/23 13:37 Labs: Abnormal Lab Results - Last 24 Hours (Table) 02/15/23 02/15/23 02/15/23 Range/Units 11:13 11:13 11:40 RBC 3.51 L (4.30-5.90) m/uL Hgb 8.6 L (13.0-17.5) gm/dL Hct 28.6 L (39.0-53.0) % MCH 24.4 L (25.0-35.0) pg MCHC 30.0 L (31.0-37.0) g/dL RDW 18.2 H (11.5-15.5) % POC Glucose (mg/dL) 162 H (70-110) mg/dL Ferritin 10.3 L (22.0-322.0) ng/mL 02/15/23 02/15/23 02/16/23 Range/Units 16:35 20:48 06:17 RBC (4.30-5.90) m/uL Hgb (13.0-17.5) gm/dL Hct (39.0-53.0) % MCH (25.0-35.0) pg MCHC (31.0-37.0) g/dL RDW (11.5-15.5) % POC Glucose (mg/dL) 198 H 202 H 161 H (70-110) mg/dL Ferritin (22.0-322.0) ng/mL Assessment and Plan Assessment: 1. Anemia secondary to GI bleed 2. History of atrial fibrillation status post watchman procedure 1 month ago 3. History of CHF 4. History of previous episodes of rectal bleeding 5. History of essential hypertension 6. History of hyperlipidemia 7. History of insulin-dependent diabetes mellitus DVT prophylaxis SCDs. GI prophylaxis Protonix Cardiology and surgical service is consulted Repeat labs ordered
[2023-02-16 16:51] LABS: Glucose,Whole Blood 208 mg/dL (70-110)
[2023-02-16 19:18] VITALS: RESP 16
[2023-02-16 19:44] LABS: Glucose,Whole Blood 185 mg/dL (70-110)
[2023-02-16] MEDS: CHOLECALCIFEROL 125 MCG (5000 IU) TABLET PO SCH (21:33)
[2023-02-16] MEDS: PRAVASTATIN SODIUM 80 MG TAB PO SCH (21:41)
[2023-02-17 06:04] LABS: Glucose,Whole Blood 206 mg/dL (70-110)
[2023-02-17] MEDS: INSULIN ASPART (NovoLOG) 100 UNIT/ML VIAL SQ SCH ×2 (08:00→12:25)
[2023-02-17 08:20] LABS: Anisocytosis Slight; Basophils % (A) 0 %; Eosinophils # (A) 0.1 k/uL (0-0.7); Eosinophils % (A) 1 %; HCT 27.5 % (39.0-53.0); Hypochromasia Marked; Lymphocytes # (A) 1.3 k/uL (1.0-4.8); Lymphocytes % (A) 19 %; MCH 23.4 pg (25.0-35.0); MCV 80.6 fL (80.0-100.0); Mean Platelet Volume 8.2; Microcytosis Slight; Monocytes # (A) 0.4 k/uL (0-1.0); Monocytes % (A) 6 %; Neutrophils # (A) 4.9 k/uL (1.3-7.7); Neutrophils % (A) 72 %; Platelet Count 223 k/uL (150-450); Poikilocytosis Slight; RBC 3.41 m/uL (4.30-5.90); RDW 17.7 % (11.5-15.5); WBC 6.9 k/uL (3.8-10.6)
[2023-02-17 08:44] VITALS: BP 119/48; PULSE 69; TEMP 98
--- NOTE | 2023-02-17 10:21 | P.PN ---
Subjective HISTORY OF PRESENT ILLNESS: This is a 73-year-old male with a past medical history significant for paroxysmal atrial fibrillation, GI bleed, recent watchman procedure on 01/09/2023, coronary artery disease with previous CABG (VALLE to LAD, SVG to OM, SVG to PDA branch of RCA) in 2005, PCI ostium and mid circumflex in 2014, hypertension, hyperlipidemia, diabetes, former nicotine dependence, and peripheral vascular disease with severe bilateral SFA disease, arthrectomy and prior stenting with Dr. Porras and Dr. Meeks. Patient follows in the office with Dr. Hendricks. We have been asked to see the patient in consultation for GI bleed. Patient examined at the bedside. Patient was recently hospitalized for chest pain and shortness of breath. Patient also was found to be anemic. He remains on aspirin and plavix. He was discharged home in stable condition. He states he was feeling fine for a couple days and was having normal bowel movements. He states on Monday he began having black stools again. He presented to the emergency room for further evaluation. He denies having any chest pain or pressure. He denies any shortness of breath. Hemoglobin is fairly stable at 8.6. He reports taking omeprazole 40 mg twice a day at home. He denies any iron supplementation. * EKG reveals sinus mechanism with diffuse T-wave inversions * Chest xray extremity atelectasis in the lower lungs. No definite acute process. * Laboratory data: WBC 6.7. Hemoglobin 8.6. Platelet count 241. Sodium 134. Potassium 4.7. BUN 42. Creatinine 2.13. Magnesium 2.3. * Current home cardiac medications include Plavix 75 mg daily, aspirin 81 mg [id number], Lasix 40 mg twice a day, metoprolol succinate 100 mg twice a day, Ranexa 500 mg twice a day * Most recent echocardiogram obtained in January 2023 revealed ejection fraction 45%, moderate MR, moderate TR * Patient underwent Lexiscan stress test in January 2023 revealing stress-induced ischemia not excluded in anterior apical wall. Hypokinesia with ejection fraction of 36% * Cardiac catheterization history: October 2016 revealing total occlusion of [place] circumflex that was stented in March 2015, appears chronic occlusion. Vein graft to the PDA is patent, PDA itself is diffusely diseased. Vein graft to obtuse marginal/PLV branch of circumflex and VALLE to LAD are widely patent. 02/16 Patient seen and examined. Patient denies any chest pain or pressure. Denies any shortness breath. Hemoglobin down to 7.8 and he has been receiving some IV fluids and may be some component of dilution. He was placed back on aspirin and Plavix secondary to risk of stroke with recent watchman procedure. He did have 1 dark stool last night however none today. He underwent EGD with no significant active bleed and gastritis. Ferritin was low at 11. 02/17/2023 Patient examined this morning. He is sitting up in the chair. Patient denies chest pain or pressure. He currently denies shortness of breath. Hemoglobin this morning is stable at 8.0. PHYSICAL EXAM: VITAL SIGNS: Reviewed. GENERAL: Well-developed in no acute distress. HEENT: Head is normocephalic. Pupils are equal, round. Sclerae anicteric. Mucous membranes of the mouth are moist. Neck supple. No JVD or thyromegaly LUNGS: Respirations even and unlabored. Lungs essentially clear to auscultation bilaterally. HEART: Regular rate and rhythm. S1 and S2 heard. ABDOMEN: Soft. Nondistended. Nontender. EXTREMITIES: Normal range of motion. No clubbing or cyanosis. Peripheral pulses intact. No lower extremity edema NEUROLOGIC: Awake and alert. Oriented x 3. ASSESSMENT: Complaints of black stools x 3 days at home, on aspirin and plavix outpatient Anemia, relatively stable Generalized fatigue Paroxysmal atrial fibrillation S/P recent Watchman device, 01/11/2023 Coronary artery disease s/p CABG (VALLE to LAD, SVG to OM, SVG to PDA branch of RCA) in 2005, PCI ostium and mid circumflex in 2014 Hypertension Hyperlipidemia Diabetes Chronic kidney disease Former nicotine dependence Peripheral vascular disease with severe bilateral SFA disease, atherectomy and prior stenting with Dr. Porras and Dr. Meeks, most recently underwent angiogram, SFA arthrectomy and left SFA PTBA on 03/2022 PLAN: Risk versus benefit of continuing aspirin and plavix discussed with patient. From a cardiac standpoint, patient needs to stay on aspirin and plavix for 3 months post watchman unless patient develops significant anemia. Patient is stable for discharge home today from a cardiac standpoint Patient to follow up on an outpatient basis with Dr. Hendricks Nurse practitioner note has been reviewed by physician. Signing provider agrees with the documented findings, assessment, and plan of care. Objective - Vital Signs Vital signs: Vital Signs Temp 98.0 F 02/17/23 08:00 Pulse 69 02/17/23 08:00 Resp 16 02/17/23 09:37 BP 119/48 02/17/23 08:00 Pulse Ox 97 02/17/23 02:21 FiO2 Intake & Output 02/16/23 02/17/23 02/17/23 18:59 06:59 18:59 Intake Total 270 300 Balance 270 300 Intake: IV 50 Oral 220 300 Other: Voiding Method Toilet Toilet # Voids 3 1 3 - Labs CBC & Chem 7: 02/17/23 08:03 02/16/23 07:18 Labs: Abnormal Lab Results - Last 24 Hours (Table) 02/16/23 02/16/23 02/16/23 Range/Units 07:18 07:18 11:42 RBC 3.36 L (4.40-5.60) X 10*6/uL Hgb 7.8 L (12.0-15.0) d/dL Hct 27.8 L (39.6-50.0) % MCH 23.2 L (27.0-32.0) pg MCHC 28.1 L (32.0-37.0) d/dL RDW 18.6 H (11.5-14.5) % Creatinine 1.7 H (0.6-1.5) mg/dL Est GFR (CKD-EPI) 42 L (>=60) Glucose 135 H (70-110) mg/dL POC Glucose (mg/dL) 150 H (70-110) mg/dL AST 11 L (14-35) U/L Total Protein 6.1 L (6.2-8.2) d/dL 02/16/23 02/16/23 02/17/23 Range/Units 16:50 19:42 06:03 RBC (4.40-5.60) X 10*6/uL Hgb (12.0-15.0) d/dL Hct (39.6-50.0) % MCH (27.0-32.0) pg MCHC (32.0-37.0) d/dL RDW (11.5-14.5) % Creatinine (0.6-1.5) mg/dL Est GFR (CKD-EPI) (>=60) Glucose (70-110) mg/dL POC Glucose (mg/dL) 208 H 185 H 206 H (70-110) mg/dL AST (14-35) U/L Total Protein (6.2-8.2) d/dL 02/17/23 Range/Units 08:03 RBC 3.41 L (4.40-5.60) X 10*6/uL Hgb 8.0 L (12.0-15.0) d/dL Hct 27.5 L (39.6-50.0) % MCH 23.4 L (27.0-32.0) pg MCHC 29.0 L (32.0-37.0) d/dL RDW 17.7 H (11.5-14.5) % Creatinine (0.6-1.5) mg/dL Est GFR (CKD-EPI) (>=60) Glucose (70-110) mg/dL POC Glucose (mg/dL) (70-110) mg/dL AST (14-35) U/L Total Protein (6.2-8.2) d/dL
[2023-02-17] MEDS ORDERED: SODIUM FERRIC GLUCONAT-SUCROSE 125 MG in SODIUM CHLORIDE 0.9% 100 ML IVPB ONE (10:30)
[2023-02-17] MEDS: CLOPIDOGREL 75 MG TAB PO SCH (10:48)
[2023-02-17] MEDS: ASPIRIN 81 MG PO SCH (10:48)
[2023-02-17] MEDS: FUROSEMIDE 40 MG TAB PO SCH (10:48)
[2023-02-17] MEDS: allopurinoL 100 MG TAB PO SCH (10:48)
[2023-02-17] MEDS: RANOLAZINE 500 MG TAB.ER.12H PO SCH (10:48)
[2023-02-17] MEDS: polyethylene glycoL 3350 17 GM POWD.PACK PO SCH (10:49)
[2023-02-17] MEDS: METOPROLOL SUCCINATE (ER) 100 MG TAB.ER.24H PO SCH (10:49)
[2023-02-17] MEDS: DAPAGLIFLOZIN PROPANEDIOL 5 MG TABLET PO SCH (10:49)
[2023-02-17] MEDS: MONTELUKAST 10 MG TAB PO SCH (10:49)
--- NOTE | 2023-02-17 10:49 | P.DS ---
Providers Date of admission: 02/14/23 14:39 Expected date of discharge: 02/17/23 Attending physician: Chichi Chen Consults: 02/15/23 09:10 Consult Physician Routine Consulting Provider: Mickey Doe Consult Reason/Comments: established patient, gi bleed plavix Do you want consulting provider notified?: Yes 02/15/23 14:36 Consult Physician Routine Consulting Provider: Roly Dejesus Consult Reason/Comments: GIB Do you want consulting provider notified?: Already Contacted Primary care physician: Kristel Hall [facility] Course: Discharge diagnosis 1. Anemia secondary to GI bleed 2. History of atrial fibrillation status post watchman procedure 1 month ago 3. History of CHF 4. History of previous episodes of rectal bleeding 5. History of essential hypertension 6. History of hyperlipidemia 7. History of insulin-dependent diabetes mellitus Hospital course Kevin Mcknight, is a 73-year-old male who presented to [facility] emergency room with a chief complaint of GI bleed. Patient has a recurring history of GI bleed secondary to anticoagulation. Patient is status post watchman procedure in which she is maintained on aspirin and Plavix. Patient recently had admission in which she was seen by surgical and cardiology services. Patient states he days after discharge he started to having episodes of dark stool. Patient denies any bloody emesis. He was evaluated in the emergency room vital examination on presentation revealed temp 97.8, heart rate 66, respiratory rate 16, blood pressure 126/60 with a pulse ox 96% on room air. Laboratory data reveals hemoglobin 8.1 Testing in the emergency room revealed chest x-ray completed showing strandy atelectasis in the lower lungs no definitive acute process Patient was admitted to medical floor for further evaluation and treatment. Cardiology and surgical services consulted Past medical history is significant for CHF, coronary artery disease, atrial fibrillation status post watchman procedure on January 11. Previous history of rectal bleeding, hypertension, hyperlipidemia and insulin-dependent diabetes mellitus On review of systems Patient denies chest pain or shortness of breath. Patient denies nausea vomiting diarrhea. Patient denies any urinary burning or frequency. Patient reports he has not had bowel movement since admission On 02/15/2023 patient is alert and oriented 3. Vital signs of 98.6, heart rate 71 Rate 18, blood pressure 131/70 with pulse of 98% on room air. At this time patient denies chest pain or shortness of breath. Patient denies nausea vomiting or diarrhea. Patient denies any urinary burning or frequency. Awaiting cardiology and surgical implant. On 02/16/2023 patient was seen and examined on the medical floor he is alert and oriented 3 in no apparent distress he denies any new episodes of black melanotic stool, he underwent EGD today that revealed evidence of gastritis, iron tests are low patient is scheduled to have IV iron infusion, hemoglobin today 7.5, will continue with current management will monitor symptoms and blood counts closely, continue with aspirin and Plavix per cardiology recommendation at this time. On 02/17/2023 patient is alert and oriented 3. Status post EGD showing gastritis. Hemoglobin today 8.0. Patient cleared for discharge from cardiology standpoint patient to continue Plavix and aspirin time. To follow up with cardiology services for further management. Patient to receive one last dose of IV iron prior to discharge. At this time patient denies chest pain or shortness breath. Patient denies nausea vomiting or diarrhea. Patient denies any urinary burning or frequency Patient Condition at Discharge: Stable Plan - Discharge Summary Discharge Rx Participant: No New Discharge Prescriptions: Continue allopurinoL [Zyloprim] 100 mg PO DAILY Nitroglycerin Sl Tabs [Nitrostat] 0.4 mg SL Q5M PRN PRN Reason: Chest Pain Montelukast [Singulair] 10 mg PO DAILY Ranolazine [Ranexa] 500 mg PO BID Pravastatin Sodium 80 mg PO HS Empagliflozin [Jardiance] 12.5 mg PO DAILY Metoprolol Succinate (ER) [Toprol XL] 100 mg PO BID Aspirin EC [Ecotrin Low Dose] 81 mg PO Q48H Furosemide [Lasix] 40 mg PO BID@0900,1600 tab Cholecalciferol (Vitamin D3) [Vitamin D3 (125 MCG = 5,000 IU)] 125 mcg PO HS Magnesium Oxide [Magnesium] 1,000 mg PO DAILY@1200 Pantoprazole [Protonix] 40 mg PO BID Simethicone [Gas-X] 125 mg PO QID PRN PRN Reason: gas/bloating Cyanocobalamin [Vitamin B-12 Injection] 1,000 mcg SQ Q60D Clopidogrel [Plavix] 75 mg PO DAILY Insulin NPH Human Isophane [Novolin N] 64 units SQ DAILY polyethylene glycoL 3350 [Miralax] 17 gm PO DAILY packet Discharge Medication List allopurinoL [Zyloprim] 100 mg PO DAILY 03/16/15 [History] Nitroglycerin Sl Tabs [Nitrostat] 0.4 mg SL Q5M PRN 05/12/16 [History] Montelukast [Singulair] 10 mg PO DAILY 08/31/17 [History] Ranolazine [Ranexa] 500 mg PO BID 08/31/17 [History] Pravastatin Sodium 80 mg PO HS 01/15/19 [History] Empagliflozin [Jardiance] 12.5 mg PO DAILY 08/04/21 [History] Cholecalciferol (Vitamin D3) [Vitamin D3 (125 MCG = 5,000 IU)] 125 mcg PO HS 02/10/22 [History] Magnesium Oxide [Magnesium] 1,000 mg PO DAILY@1200 02/10/22 [History] Metoprolol Succinate (ER) [Toprol XL] 100 mg PO BID 02/10/22 [History] Pantoprazole [Protonix] 40 mg PO BID 02/10/22 [History] Aspirin EC [Ecotrin Low Dose] 81 mg PO Q48H 06/20/22 [History] Simethicone [Gas-X] 125 mg PO QID PRN 10/18/22 [History] Cyanocobalamin [Vitamin B-12 Injection] 1,000 mcg SQ Q60D 10/19/22 [History] Clopidogrel [Plavix] 75 mg PO DAILY 01/14/23 [History] Insulin NPH Human Isophane [Novolin N] 64 units SQ DAILY 01/14/23 [History] polyethylene glycoL 3350 [Miralax] 17 gm PO DAILY packet 01/17/23 [Rx] Furosemide [Lasix] 40 mg PO BID@0900,1600 tab 02/07/23 [Rx] Follow up Appointment(s)/Referral(s): Samy Hendricks MD [STAFF PHYSICIAN] - 1 Week Kristel Hall MD [Primary Care Provider] - 1-2 days Discharge Disposition: HOME SELF-CARE
[2023-02-17] MEDS: PANTOPRAZOLE 40 MG/10 ML VIAL IVP SCH (11:01)
[2023-02-17 11:51] LABS: Glucose,Whole Blood 178 mg/dL (70-110)
[2023-02-17] MEDS: MAGNESIUM OXIDE 400 MG TAB PO SCH (12:24)
--- NOTE | 2023-02-17 12:48 | P.PN ---
Subjective Progress Note Date: 02/17/23 CHIEF COMPLAINT: GI bleed HISTORY OF PRESENT ILLNESS: Patient is status post EGD which showed mild antral gastritis. No evidence of upper GI bleed. Patient sitting at bedside chair comfortably. Denies any abdominal pain. Hemoglobin stable at 8.0. He is scheduled for discharge. Patient seen and examined with Dr. Dejesus PHYSICAL EXAM: VITAL SIGNS: Reviewed. GENERAL: Well-developed in no acute distress. HEENT: No sclera icterus. Extraocular movements grossly intact. Moist buccal mucosa. Head is atraumatic, normocephalic. ABDOMEN: Soft. Nondistended. Nontender. NEUROLOGIC: Alert and oriented. Cranial nerves II through XII grossly intact. ASSESSMENT: 1. Recurrent GI bleed with melanotic stools status post EGD revealing mild gastritis 2. Anemia secondary to acute GI bleed 3. Status post watchman procedure 01/11/2023 for A. fib PLAN: -Continue PPI -Patient can be discharged from surgical standpoint -Continue anticoagulation per cardiology recommendations -Would recommend to hold anticoagulation if bleeding reoccurs Physician Certified Ski Patroller note has been reviewed by physician. Signing provider agrees with the documented findings, assessment, and plan of care. Objective - Vital Signs Vital signs: Vital Signs Temp 98.0 F 02/17/23 08:00 Pulse 69 02/17/23 08:00 Resp 16 02/17/23 08:00 BP 119/48 02/17/23 08:00 Pulse Ox 97 02/17/23 02:21 FiO2 Intake & Output 02/16/23 02/17/23 02/17/23 18:59 06:59 18:59 Intake Total 270 Balance 270 Intake: IV 50 Oral 220 Other: Voiding Method Toilet # Voids 3 1 - Labs CBC & Chem 7: 02/17/23 08:03 02/16/23 07:18 Labs: Abnormal Lab Results - Last 24 Hours (Table) 02/16/23 02/16/23 02/16/23 Range/Units 07:18 07:18 11:42 RBC 3.36 L (4.40-5.60) X 10*6/uL Hgb 7.8 L (12.0-15.0) d/dL Hct 27.8 L (39.6-50.0) % MCH 23.2 L (27.0-32.0) pg MCHC 28.1 L (32.0-37.0) d/dL RDW 18.6 H (11.5-14.5) % Creatinine 1.7 H (0.6-1.5) mg/dL Est GFR (CKD-EPI) 42 L (>=60) Glucose 135 H (70-110) mg/dL POC Glucose (mg/dL) 150 H (70-110) mg/dL AST 11 L (14-35) U/L Total Protein 6.1 L (6.2-8.2) d/dL 02/16/23 02/16/23 02/17/23 Range/Units 16:50 19:42 06:03 RBC (4.40-5.60) X 10*6/uL Hgb (12.0-15.0) d/dL Hct (39.6-50.0) % MCH (27.0-32.0) pg MCHC (32.0-37.0) d/dL RDW (11.5-14.5) % Creatinine (0.6-1.5) mg/dL Est GFR (CKD-EPI) (>=60) Glucose (70-110) mg/dL POC Glucose (mg/dL) 208 H 185 H 206 H (70-110) mg/dL AST (14-35) U/L Total Protein (6.2-8.2) d/dL 02/17/23 Range/Units 08:03 RBC 3.41 L (4.40-5.60) X 10*6/uL Hgb 8.0 L (12.0-15.0) d/dL Hct 27.5 L (39.6-50.0) % MCH 23.4 L (27.0-32.0) pg MCHC 29.0 L (32.0-37.0) d/dL RDW 17.7 H (11.5-14.5) % Creatinine (0.6-1.5) mg/dL Est GFR (CKD-EPI) (>=60) Glucose (70-110) mg/dL POC Glucose (mg/dL) (70-110) mg/dL AST (14-35) U/L Total Protein (6.2-8.2) d/dL
== END 2023-02-17 13:44 | disposition home or self-care (01) ==
LOC: EC 12:24 → 4SSUR 14:39
PROVIDERS: ADMIT Internal Medicine; ATTEND Internal Medicine
DX: D50.0 Iron deficiency anemia secondary to blood loss (chronic) (principal); I13.0 Hypertensive heart and chronic kidney disease with heart failure and stage 1 through stage 4 chronic kidney disease, or unspecified chronic kidney disease; I50.9 Heart failure, unspecified; E11.22 Type 2 diabetes mellitus with diabetic chronic kidney disease; E11.51 Type 2 diabetes mellitus with diabetic peripheral angiopathy without gangrene; K62.5 Hemorrhage of anus and rectum; N18.30 Chronic kidney disease, stage 3 unspecified; J98.11 Atelectasis; I25.10 Atherosclerotic heart disease of native coronary artery without angina pectoris; E78.5 Hyperlipidemia, unspecified; K21.9 Gastro-esophageal reflux disease without esophagitis; M19.90 Unspecified osteoarthritis, unspecified site; Z95.818 Presence of other cardiac implants and grafts; I25.2 Old myocardial infarction; E66.9 Obesity, unspecified; Z68.37 Body mass index [BMI] 37.0-37.9, adult; G89.29 Other chronic pain; M54.50 Low back pain, unspecified; M25.552 Pain in left hip; M25.551 Pain in right hip; M10.9 Gout, unspecified; Z86.010 Personal history of colon polyps; Z90.49 Acquired absence of other specified parts of digestive tract; Z95.1 Presence of aortocoronary bypass graft; Z95.5 Presence of coronary angioplasty implant and graft; Z98.890 Other specified postprocedural states; Z87.891 Personal history of nicotine dependence; Z95.820 Peripheral vascular angioplasty status with implants and grafts; Z82.49 Family history of ischemic heart disease and other diseases of the circulatory system; Z79.84 Long term (current) use of oral hypoglycemic drugs; Z79.02 Long term (current) use of antithrombotics/antiplatelets; Z79.82 Long term (current) use of aspirin; Z79.4 Long term (current) use of insulin; I48.0 Paroxysmal atrial fibrillation; Z79.899 Other long term (current) drug therapy; Z88.2 Allergy status to sulfonamides
CPT/HCPCS: 96376 ×3; 96365; 96375; 99285; 36415; 93005; 86900; 86901; 80053 ×2; 82728; 83735; 85025 ×4; 85610; 85730; 86850; 71046; 43235; G0378 ×4; J2916 ×2; J2704; C9113 ×3; J2001

== ENCOUNTER 2023-03-03 17:20 | Inpatient (IN) | payer MEDICARE ==
--- NOTE | 2023-03-03 18:19 | ED ---
General Adult HPI - General Chief complaint: Shortness of Breath Stated complaint: DONI Time Seen by Provider: 03/03/23 17:45 Source: patient Mode of arrival: ambulatory Limitations: no limitations - History of Present Illness Initial comments: 84-year-old male with past medical history significant for A. fib status post watchman on 01/12/23 currently on aspirin and Plavix and congestive heart failure presents to the ED with chief complaint of GI bleed. Patient states that this is a recurrent problem and has had both an endoscopy/colonoscopy which showed no obvious source of bleeding. He states over the past couple days has had some increasing bright red blood in his stool and has been increasingly short of breath. Denies chest pain. No other complaints. - Related Data Home Medications Medication Instructions Recorded Confirmed allopurinoL [Zyloprim] 100 mg PO DAILY 03/16/15 02/14/23 Nitroglycerin Sl Tabs [Nitrostat] 0.4 mg SL Q5M PRN 05/12/16 02/14/23 Montelukast [Singulair] 10 mg PO DAILY 08/31/17 02/14/23 Ranolazine [Ranexa] 500 mg PO BID 08/31/17 02/14/23 Pravastatin Sodium 80 mg PO HS 01/15/19 02/14/23 Empagliflozin [Jardiance] 12.5 mg PO DAILY 08/04/21 02/14/23 Cholecalciferol (Vitamin D3) 125 mcg PO HS 02/10/22 02/14/23 [Vitamin D3 (125 MCG = 5,000 IU)] Magnesium Oxide [Magnesium] 1,000 mg PO DAILY@1200 02/10/22 02/14/23 Metoprolol Succinate (ER) [Toprol 100 mg PO BID 02/10/22 02/14/23 XL] Pantoprazole [Protonix] 40 mg PO BID 02/10/22 02/14/23 Aspirin EC [Ecotrin Low Dose] 81 mg PO Q48H 06/20/22 02/14/23 Simethicone [Gas-X] 125 mg PO QID PRN 10/18/22 02/14/23 Cyanocobalamin [Vitamin B-12 1,000 mcg SQ Q60D 10/19/22 02/14/23 Injection] Clopidogrel [Plavix] 75 mg PO DAILY 01/14/23 02/14/23 Insulin NPH Human Isophane 64 units SQ DAILY 01/14/23 02/14/23 [Novolin N] Previous Rx's Medication Instructions Recorded polyethylene glycoL 3350 [Miralax] 17 gm PO DAILY packet 01/17/23 Furosemide [Lasix] 40 mg PO BID@0900,1600 tab 02/07/23 Ferrous Sulfate [Feosol] 325 mg PO DAILY 30 Days #30 tab 02/17/23 Allergies Allergy/AdvReac Type Severity Reaction Status Date / Time Sulfa (Sulfonamide Allergy Rash/Hives Verified 03/03/23 17:34 Antibiotics) sulfamethoxazole Allergy Rash/Hives Verified 03/03/23 17:34 [From Bactrim] trimethoprim [From Bactrim] Allergy Rash/Hives Verified 03/03/23 17:34 Review of Systems ROS Statement: Those systems with pertinent positive or pertinent negative responses have been documented in the HPI. ROS Other: All systems not noted in ROS Statement are negative. Past Medical History Past Medical History: Atrial Fibrillation, Coronary Artery Disease (CAD), Chest Pain / Angina, Heart Failure, Diabetes Mellitus, GERD/Reflux, GI Bleed, Hyperlipidemia, Hypertension, Myocardial Infarction (NH), Osteoarthritis (OA), Renal Disease, Vascular Disorder Additional Past Medical History / Comment(s): IDDN type II, CKD stage III, rectal bleed with anemia, PAD, caratid artery disease, chronic low back pain/bilateral hip pain, past r foot gout, benign colon polyps Last Myocardial Infarction Date:: 09/2016, 06/20/22 History of Any Multi-Drug Resistant Organisms: None Reported Past Surgical History: Cholecystectomy, Coronary Bypass/CABG, Heart Catheterization, Heart Catheterization With Stent, Orthopedic Surgery, Tonsillectomy Additional Past Surgical History / Comment(s): Multiple peripheral revascularization procedures/stents/arthrectomies/ballooning, multiple aortagrams with runoffs, JOIE, , 2006 CABG 3 vessel, EGD, colonoscopies/polypectomies, cyst on back drained. Past Anesthesia/Blood Transfusion Reactions: No Reported Reaction Additional Past Anesthesia/Blood Transfusion Reaction / Comment(s): Pt has received blood in past without reaction. Date of Last Stent Placement:: 2013 Past Psychological History: No Psychological Hx Reported Smoking Status: Former smoker Past Alcohol Use History: None Reported Past Drug Use History: None Reported - Past Family History Father Family Medical History: Myocardial Infarction (NH) Additional Family Medical History / Comment(s): He had a NH in his 30s and had CABG in his 50s. Mother Family Medical History: Pulmonary Embolus General Exam Limitations: no limitations General appearance: alert, in no apparent distress Respiratory exam: Present: normal lung sounds bilaterally Cardiovascular Exam: Present: regular rate, normal rhythm GI/Abdominal exam: Present: soft Neurological exam: Present: alert, oriented X3 Course Vital Signs 03/03/23 03/03/23 17:29 19:35 Temperature 98.8 F Pulse Rate 72 67 Respiratory 18 18 Rate Blood Pressure 124/57 124/55 O2 Sat by Pulse 96 95 Oximetry - Reevaluation(s) Reevaluation #1: Spoke to Dr. Chen accepts admission to observation 03/03/23 20:35 Medical Decision Making - Medical Decision Making Was pt. sent in by a medical professional or institution (, PA, NAPHTHOL SOAPING MACHINE OPERATOR, urgent care, hospital, or custodial...) When possible be specific @ -No Did you speak to anyone other than the patient for history (EMS, parent, family, police, friend...)? What history was obtained from this source @ -No Did you review nursing and triage notes (agree or disagree)? Why? @ -I reviewed and agree with nursing and triage notes Were old charts reviewed (outside hosp., previous admission, EMS record, old EKG, old radiological studies, urgent care reports/EKG's, custodial records)? Report findings @ -No old charts were reviewed Differential Diagnosis (chest pain, altered mental status, abdominal pain women, abdominal pain men, vaginal bleeding, weakness, fever, dyspnea, syncope, headache, dizziness, GI bleed, back pain, seizure, CVA, palpatations, mental health, musculoskeletal)? @ -Differential Dyspnea: Coronary syndrome, arrhythmia, tamponade, asthma, COPD, pulmonary embolism, pneumonia, pneumothorax, pulmonary effusion, anaphylaxis, diabetic ketoacidosis, flailed chest, pulmonary contusion, diaphragmatic rupture, anemia, neuromuscular, this is not meant to be an all-inclusive list. EKG interpreted by me (3pts min.). @ -As above X-rays interpreted by me (1pt min.). @ -X-ray showed some atelectasis however no acute process. CT interpreted by me (1pt min.). @ -None done U/S interpreted by me (1pt. min.). @ -None done What testing was considered but not performed or refused? (CT, X-rays, U/S, labs)? Why? @ -None What meds were considered but not given or refused? Why? @ -None Did you discuss the management of the patient with other professionals (professionals i.e. DrMitch, PA, NAPHTHOL SOAPING MACHINE OPERATOR, lab, RT, psych nurse, social professionals, catering cook, teacher, home lending officer, rn case manager hospice)? Give summary @ -No Was smoking cessation discussed for >3mins.? @ -No Was critical care preformed (if so, how long)? @ -No Were there social determinants of health that impacted care today? How? (Homelessness, low income, unemployed, alcoholism, drug addiction, tr ansportation, low edu. Level, literacy, decrease access to med. care, care home, rehab)? @ -No Was there de-escalation of care discussed even if they declined (Discuss DNR or withdrawal of care, Hospice)? DNR status @ -No What co-morbidities impacted this encounter? (DM, HTN, Smoking, COPD, CAD, Cancer, CVA, ARF, Chemo, Hep., AIDS, mental health diagnosis, sleep apnea, morbid obesity)? @ -Congestive heart failure, A. fib Was patient admitted / discharged? Hospital course, mention meds given and route, prescriptions, significant lab abnormalities, going to OR and other pertinent info. @ -Discharge. Laboratory studies show hemoglobin of 9.1 however improved from prior discharged at 8. Additionally chemistry did show some elevations in BUN/creatinine and creatinine however also improved from baseline. Laboratory studies otherwise unremarkable, including troponin. BNP 4000. At this time patient symptomatic with shortness of breath. Patient will be admitted to observation for continued CHF treatment. Discussed plan of care with patient and family who are in agreement. Undiagnosed new problem with uncertain prognosis? @ -No Drug Therapy requiring intensive monitoring for toxicity (Heparin, Nitro, Insulin, Cardizem)? @ -No Were any procedures done? @ -No Diagnosis/symptom? @ -CHF, rectal bleeding Acute, or Chronic, or Acute on Chronic? @ -Acute on chronic Uncomplicated (without systemic symptoms) or Complicated (systemic symptoms)? @ -Uncomplicated Side effects of treatment? @ -No Exacerbation, Progression, or Severe Exacerbation? @ -No Poses a threat to life or bodily function? How? (Chest pain, USA, NH, pneumonia, PE, COPD, DKA, ARF, appy, cholecystitis, CVA, Diverticulitis, Homicidal, Suicidal, threat to staff... and all critical care pts) @ -No - Lab Data Result diagrams: 03/03/23 18:10 03/03/23 18:10 Lab Results 03/03/23 03/03/23 03/03/23 Range/Units 18:10 18:10 18:10 WBC 6.2 (3.8-10.6) k/uL RBC 3.59 L (4.30-5.90) m/uL Hgb 9.1 L (13.0-17.5) gm/dL Hct 31.7 L (39.0-53.0) % MCV 88.5 D (80.0-100.0) fL MCH 25.3 (25.0-35.0) pg MCHC 28.6 L (31.0-37.0) g/dL RDW 22.3 H (11.5-15.5) % Plt Count 235 (150-450) k/uL MPV 7.4 Neutrophils % 66 % Lymphocytes % 25 % Monocytes % 6 % Eosinophils % 1 % Basophils % 0 % Neutrophils # 4.1 (1.3-7.7) k/uL Lymphocytes # 1.6 (1.0-4.8) k/uL Monocytes # 0.4 (0-1.0) k/uL Eosinophils # 0.1 (0-0.7) k/uL Basophils # 0.0 (0-0.2) k/uL Hypochromasia Marked Poikilocytosis Slight Anisocytosis Moderate PT 11.0 (9.0-12.0) sec INR 1.0 (<1.2) APTT 22.2 (22.0-30.0) sec Sodium 136 L (137-145) mmol/L Potassium 4.1 (3.5-5.1) mmol/L Chloride 98 (98-107) mmol/L Carbon Dioxide 31 H (22-30) mmol/L Anion Gap 7 mmol/L BUN 27 H (9-20) mg/dL Creatinine 1.78 H (0.66-1.25) mg/dL Est GFR (CKD-EPI)AfAm 43 (>60 ml/min/1.73 sqM) Est GFR (CKD-EPI)NonAf 37 (>60 ml/min/1.73 sqM) Glucose 172 H (74-99) mg/dL Plasma Lactic Acid Carson (0.7-2.0) mmol/L Calcium 8.7 (8.4-10.2) mg/dL Total Bilirubin 0.5 (0.2-1.3) mg/dL AST 18 (17-59) U/L ALT 14 (4-49) U/L Alkaline Phosphatase 129 H (38-126) U/L Troponin I (0.000-0.034) ng/mL NT-Pro-B Natriuret Pep pg/mL Total Protein 6.5 (6.3-8.2) g/dL Albumin 3.9 (3.5-5.0) g/dL Stool Occult Blood (Negative) 03/03/23 03/03/23 03/03/23 Range/Units 18:10 18:10 18:10 WBC (3.8-10.6) k/uL RBC (4.30-5.90) m/uL Hgb (13.0-17.5) gm/dL Hct (39.0-53.0) % MCV (80.0-100.0) fL MCH (25.0-35.0) pg MCHC (31.0-37.0) g/dL RDW (11.5-15.5) % Plt Count (150-450) k/uL MPV Neutrophils % % Lymphocytes % % Monocytes % % Eosinophils % % Basophils % % Neutrophils # (1.3-7.7) k/uL Lymphocytes # (1.0-4.8) k/uL Monocytes # (0-1.0) k/uL Eosinophils # (0-0.7) k/uL Basophils # (0-0.2) k/uL Hypochromasia Poikilocytosis Anisocytosis PT (9.0-12.0) sec INR (<1.2) APTT (22.0-30.0) sec Sodium (137-145) mmol/L Potassium (3.5-5.1) mmol/L Chloride (98-107) mmol/L Carbon Dioxide (22-30) mmol/L Anion Gap mmol/L BUN (9-20) mg/dL Creatinine (0.66-1.25) mg/dL Est GFR (CKD-EPI)AfAm (>60 ml/min/1.73 sqM) Est GFR (CKD-EPI)NonAf (>60 ml/min/1.73 sqM) Glucose (74-99) mg/dL Plasma Lactic Acid Carson 1.0 (0.7-2.0) mmol/L Calcium (8.4-10.2) mg/dL Total Bilirubin (0.2-1.3) mg/dL AST (17-59) U/L ALT (4-49) U/L Alkaline Phosphatase (38-126) U/L Troponin I 0.018 (0.000-0.034) ng/mL NT-Pro-B Natriuret Pep pg/mL Total Protein (6.3-8.2) g/dL Albumin (3.5-5.0) g/dL Stool Occult Blood Positive (Negative) 03/03/23 Range/Units 19:44 WBC (3.8-10.6) k/uL RBC (4.30-5.90) m/uL Hgb (13.0-17.5) gm/dL Hct (39.0-53.0) % MCV (80.0-100.0) fL MCH (25.0-35.0) pg MCHC (31.0-37.0) g/dL RDW (11.5-15.5) % Plt Count (150-450) k/uL MPV Neutrophils % % Lymphocytes % % Monocytes % % Eosinophils % % Basophils % % Neutrophils # (1.3-7.7) k/uL Lymphocytes # (1.0-4.8) k/uL Monocytes # (0-1.0) k/uL Eosinophils # (0-0.7) k/uL Basophils # (0-0.2) k/uL Hypochromasia Poikilocytosis Anisocytosis PT (9.0-12.0) sec INR (<1.2) APTT (22.0-30.0) sec Sodium (137-145) mmol/L Potassium (3.5-5.1) mmol/L Chloride (98-107) mmol/L Carbon Dioxide (22-30) mmol/L Anion Gap mmol/L BUN (9-20) mg/dL Creatinine (0.66-1.25) mg/dL Est GFR (CKD-EPI)AfAm (>60 ml/min/1.73 sqM) Est GFR (CKD-EPI)NonAf (>60 ml/min/1.73 sqM) Glucose (74-99) mg/dL Plasma Lactic Acid Carson (0.7-2.0) mmol/L Calcium (8.4-10.2) mg/dL Total Bilirubin (0.2-1.3) mg/dL AST (17-59) U/L ALT (4-49) U/L Alkaline Phosphatase (38-126) U/L Troponin I (0.000-0.034) ng/mL NT-Pro-B Natriuret Pep 4180 pg/mL Total Protein (6.3-8.2) g/dL Albumin (3.5-5.0) g/dL Stool Occult Blood (Negative) - EKG Data EKG Comments: EKG shows a sinus rhythm with diffuse ST and T-wave changes largely unchanged from prior however new inversions in leads 3 and aVF. NE 138, QRS 124, QT/QTc 425/449. Disposition Clinical Impression: CHF (congestive heart failure), Rectal bleeding Disposition: ADMITTED IP TO THIS HOSP Condition: Good Referrals: Kristel Hall MD [Primary Care Provider] - 1-2 days Time of Disposition: 20:38
[2023-03-03 18:32] LABS: Anisocytosis Moderate; Basophils % (A) 0 %; Eosinophils # (A) 0.1 k/uL (0-0.7); Eosinophils % (A) 1 %; HCT 31.7 % (39.0-53.0); HGB 9.1 gm/dL (13.0-17.5); Hypochromasia Marked; Lymphocytes # (A) 1.6 k/uL (1.0-4.8); Lymphocytes % (A) 25 %; MCH 25.3 pg (25.0-35.0); MCHC 28.6 g/dL (31.0-37.0); Mean Platelet Volume 7.4; Monocytes # (A) 0.4 k/uL (0-1.0); Monocytes % (A) 6 %; Neutrophils # (A) 4.1 k/uL (1.3-7.7); Neutrophils % (A) 66 %; Platelet Count 235 k/uL (150-450); Poikilocytosis Slight; RBC 3.59 m/uL (4.30-5.90); RDW 22.3 % (11.5-15.5); WBC 6.2 k/uL (3.8-10.6)
[2023-03-03 18:39] LABS: ALT 14 U/L (4-49); AST 18 U/L (17-59); African American GFR (CKD) 43 (>60 ml/min/1.73 sqM); Albumin 3.9 g/dL (3.5-5.0); Alkaline Phosphatase 129 U/L (38-126); Anion Gap 7 mmol/L; Blood Urea Nitrogen 27 mg/dL (9-20); Calcium 8.7 mg/dL (8.4-10.2); Carbon Dioxide 31 mmol/L (22-30); Chloride 98 mmol/L (98-107); Glucose 172 mg/dL (74-99); Non-African American GFR(CKD) 37 (>60 ml/min/1.73 sqM); Potassium 4.1 mmol/L (3.5-5.1); Sodium 136 mmol/L (137-145); Total Bilirubin 0.5 mg/dL (0.2-1.3); Total Protein 6.5 g/dL (6.3-8.2)
--- NOTE | 2023-03-03 19:06 | XR ---
EXAMINATION TYPE: XR chest 2V DATE OF EXAM: 03/03/2023 6:33 PM COMPARISON: Chest radiographs from 02/14/2023 TECHNIQUE: XR chest 2V Frontal and lateral views of the chest. CLINICAL INDICATION:Male, 73 years old with history of SOB; FINDINGS: Lungs/Pleura: There is no evidence of pleural effusion, focal consolidation, or pneumothorax. Pulmonary vascularity: Unremarkable. Heart/mediastinum: Cardiomediastinal silhouette is enlarged and stable. Musculoskeletal: No acute osseous pathology. Midline sternotomy wires are noted. IMPRESSION: Atelectasis in the lung bases. No significant change from prior. Correlate with serum BNP.
[2023-03-03 19:09] LABS: MCV 88.5 fL (80.0-100.0)
[2023-03-03 19:20] LABS: Partial Thromboplastin Time 22.2 sec (22.0-30.0)
[2023-03-03] MEDS ORDERED: NALOXONE 0.4 MG/ML 1 ML VIAL IV PRN (20:39)
[2023-03-03] MEDS ORDERED: FUROSEMIDE 10 MG/ML 4 ML VIAL IV STA (20:48)
[2023-03-03] MEDS: FUROSEMIDE 10 MG/ML 4 ML VIAL IV SCH (21:40)
[2023-03-04 08:24] LABS: Glucose,Whole Blood 131 mg/dL (70-110)
[2023-03-04] MEDS: FUROSEMIDE 10 MG/ML 4 ML VIAL IV SCH ×2 (08:41→20:56)
[2023-03-04 12:03] VITALS: BMI 37.6
[2023-03-04] MEDS ORDERED: SIMETHICONE 80 MG CHEWABLE PO PRN (12:28)
[2023-03-04] MEDS: INSULIN NPH 100 UNIT/ML 10 ML VIAL SQ SCH (13:46)
[2023-03-04] MEDS: DAPAGLIFLOZIN PROPANEDIOL 5 MG TABLET PO SCH (13:46)
[2023-03-04 13:47] LABS: Glucose,Whole Blood 244 mg/dL (70-110)
[2023-03-04] MEDS: FERROUS SULFATE 325 MG TAB PO SCH (13:47)
[2023-03-04] MEDS: PANTOPRAZOLE 40 MG TABLET PO SCH ×2 (13:47→20:56)
[2023-03-04] MEDS: CLOPIDOGREL 75 MG TAB PO SCH (13:47)
[2023-03-04] MEDS: MONTELUKAST 10 MG TAB PO SCH (13:47)
[2023-03-04] MEDS: allopurinoL 100 MG TAB PO SCH (13:47)
[2023-03-04] MEDS: METOPROLOL SUCCINATE (ER) 100 MG TAB.ER.24H PO SCH ×2 (13:48→20:56)
--- NOTE | 2023-03-04 15:49 | P.HPIM ---
History of Present Illness H&P Date: 03/04/23 Kevin Mcknight, is a 73-year-old male who presented to [facility] emergency room with a chief complaint of worsening shortness of breath. He was evaluated in the emergency room vital examination on presentation revealed a temperature of 98.8 pulse 72 respiration 18 blood pressure 124/57 pulse ox 96% on room air Laboratory data revealed a white blood count of 6.2 hemoglobin 9.1 platelet count 235 sodium 136 potassium 4.1 chloride 98 CO2 31 BUN 27 creatinine 1.78 BNP was elevated at 4180 and troponin was slightly elevated at 0.0-6 Testing in the emergency room revealed chest x-ray revealed cardiomegaly and atelectasis in the lung bases Patient was admitted to medical floor for further evaluation and treatment Past medical history is significant for history of congestive heart failure with mildly decreased left ventricular ejection fraction at 45% history of atrial fibrillation with history of watchman procedure 2 months ago, history of recurrent admission was lower GI bleed On review of systems patient is alert and oriented 3 in no apparent distress he is complaining of shortness of breath with activity otherwise he denies any complaints there is no fever or chills no headache or dizziness no chest pain no cough no palpitation no nausea or vomiting no abdominal pain no diarrhea and no urinary symptoms Past Medical History Past Medical History: Atrial Fibrillation, Coronary Artery Disease (CAD), Chest Pain / Angina, Heart Failure, Diabetes Mellitus, GERD/Reflux, GI Bleed, Hyperlipidemia, Hypertension, Myocardial Infarction (LA), Osteoarthritis (OA), Renal Disease, Vascular Disorder Additional Past Medical History / Comment(s): IDDN type II, CKD stage III, rectal bleed with anemia, PAD, caratid artery disease, chronic low back pain/bilateral hip pain, past r foot gout, benign colon polyps Last Myocardial Infarction Date:: 09/2016, 06/20/22 History of Any Multi-Drug Resistant Organisms: None Reported Past Surgical History: Cholecystectomy, Coronary Bypass/CABG, Heart Catheterization, Heart Catheterization With Stent, Orthopedic Surgery, Tonsillectomy Additional Past Surgical History / Comment(s): Multiple peripheral revascularization procedures/stents/arthrectomies/ballooning, multiple aortagrams with runoffs, JOIE, , 2006 CABG 3 vessel, EGD, colonoscopies/polypectomies, cyst on back drained. Past Anesthesia/Blood Transfusion Reactions: No Reported Reaction Additional Past Anesthesia/Blood Transfusion Reaction / Comment(s): Pt has received blood in past without reaction. Date of Last Stent Placement:: 2013 Past Psychological History: No Psychological Hx Reported Smoking Status: Former smoker Past Alcohol Use History: None Reported Past Drug Use History: None Reported - Past Family History Father Family Medical History: Myocardial Infarction (LA) Additional Family Medical History / Comment(s): He had a LA in his 30s and had CABG in his 50s. Mother Family Medical History: Pulmonary Embolus Medications and Allergies Home Medications Medication Instructions Recorded Confirmed Type allopurinoL [Zyloprim] 100 mg PO DAILY 03/16/15 03/03/23 History Nitroglycerin Sl Tabs [Nitrostat] 0.4 mg SL Q5M PRN 05/12/16 03/03/23 History Montelukast [Singulair] 10 mg PO DAILY 08/31/17 03/03/23 History Ranolazine [Ranexa] 500 mg PO BID 08/31/17 03/03/23 History Pravastatin Sodium 80 mg PO HS 01/15/19 03/03/23 History Empagliflozin [Jardiance] 12.5 mg PO DAILY 08/04/21 03/03/23 History Cholecalciferol (Vitamin D3) 125 mcg PO HS 02/10/22 03/03/23 History [Vitamin D3 (125 MCG = 5,000 IU)] Magnesium Oxide [Magnesium] 1,000 mg PO DAILY@1200 02/10/22 03/03/23 History Metoprolol Succinate (ER) [Toprol 100 mg PO BID 02/10/22 03/03/23 History XL] Pantoprazole [Protonix] 40 mg PO BID 02/10/22 03/03/23 History Aspirin EC [Ecotrin Low Dose] 81 mg PO Q48H 06/20/22 03/03/23 History Simethicone [Gas-X] 125 mg PO QID PRN 10/18/22 03/03/23 History Cyanocobalamin [Vitamin B-12 1,000 mcg SQ Q60D 10/19/22 03/03/23 History Injection] Clopidogrel [Plavix] 75 mg PO DAILY 01/14/23 03/03/23 History Insulin NPH Human Isophane 64 units SQ DAILY 01/14/23 03/03/23 History [Novolin N] polyethylene glycoL 3350 [Miralax] 17 gm PO DAILY packet 01/17/23 03/03/23 Rx Furosemide [Lasix] 40 mg PO BID@0900,1600 tab 02/07/23 03/03/23 Rx Ferrous Sulfate [Feosol] 325 mg PO DAILY 30 Days #30 tab 02/17/23 03/03/23 Rx Allergies Allergy/AdvReac Type Severity Reaction Status Date / Time Sulfa (Sulfonamide Allergy Rash/Hives Verified 03/03/23 22:04 Antibiotics) sulfamethoxazole Allergy Rash/Hives Verified 03/03/23 22:04 [From Bactrim] trimethoprim [From Bactrim] Allergy Rash/Hives Verified 03/03/23 22:04 Physical Exam Vitals: Vital Signs Temp Pulse Pulse Resp BP BP Pulse Ox 03/04/23 08:00 97.8 F 63 18 141/59 96 03/04/23 03:13 58 L 18 123/60 95 03/03/23 22:28 61 15 125/46 95 03/03/23 21:01 62 18 138/67 95 03/03/23 19:35 67 18 124/55 95 03/03/23 17:29 98.8 F 72 18 124/57 96 Intake and Output 03/03/23 03/04/23 03/04/23 22:59 06:59 14:59 Other: # Voids 0 Weight 115.666 kg 115.666 kg In general patient is alert and oriented ?-3 in no distress HEENT head normocephalic and atraumatic Neck is supple no JVD no goiter no lymphadenopathy no carotid bruit Chest examination reveals a scattered crackles in bases no wheezing Cardiac exam reveals regular heart sounds S1 and S2 no gallops no murmurs Abdomen is soft nontender no organomegaly with normal bowel sounds Extremity exam reveals no edema no cyanosis or clubbing Neurological examination reveals no gross focal deficits Results CBC & Chem 7: 03/03/23 18:10 03/03/23 18:10 Labs: Abnormal Lab Results - Last 24 Hours (Table) 03/03/23 03/03/23 03/04/23 Range/Units 18:10 18:10 08:22 RBC 3.59 L (4.30-5.90) m/uL Hgb 9.1 L (13.0-17.5) gm/dL Hct 31.7 L (39.0-53.0) % MCHC 28.6 L (31.0-37.0) g/dL RDW 22.3 H (11.5-15.5) % Sodium 136 L (137-145) mmol/L Carbon Dioxide 31 H (22-30) mmol/L BUN 27 H (9-20) mg/dL Creatinine 1.78 H (0.66-1.25) mg/dL Glucose 172 H (74-99) mg/dL POC Glucose (mg/dL) 131 H (70-110) mg/dL Alkaline Phosphatase 129 H (38-126) U/L Assessment and Plan Plan: Acute exacerbation of systolic congestive heart failure Underlying history of hypertension Underlying history of hyperlipidemia Underlying history of chronic kidney disease Underlying history of recurrent episodes of GI bleeding Known history of atrial fibrillation status post watchman procedure 2 months ago Underlying history of diabetes mellitus At this time patient was admitted to medical floor Home medications reviewed and reordered He was started on IV Lasix Cardiology consultation was requested Will recheck labs in a.m.
[2023-03-04] MEDS ORDERED: FUROSEMIDE 40 MG TAB PO SCH (16:00)
[2023-03-04 17:41] LABS: Glucose,Whole Blood 118 mg/dL (70-110)
[2023-03-04 20:16] LABS: Glucose,Whole Blood 181 mg/dL (70-110)
[2023-03-04] MEDS: CHOLECALCIFEROL 125 MCG (5000 IU) TABLET PO SCH (20:56)
[2023-03-04] MEDS: RANOLAZINE 500 MG TAB.ER.12H PO SCH (20:56)
[2023-03-04] MEDS: PRAVASTATIN SODIUM 80 MG TAB PO SCH (20:56)
[2023-03-05] MEDS: MONTELUKAST 10 MG TAB PO SCH (08:24)
[2023-03-05] MEDS: FUROSEMIDE 10 MG/ML 4 ML VIAL IV SCH ×2 (08:24→19:59)
[2023-03-05] MEDS: METOPROLOL SUCCINATE (ER) 100 MG TAB.ER.24H PO SCH ×2 (08:24→19:58)
[2023-03-05] MEDS: RANOLAZINE 500 MG TAB.ER.12H PO SCH ×2 (08:24→19:59)
[2023-03-05] MEDS: allopurinoL 100 MG TAB PO SCH (08:25)
[2023-03-05] MEDS: FERROUS SULFATE 325 MG TAB PO SCH (08:25)
[2023-03-05] MEDS: INSULIN NPH 100 UNIT/ML 10 ML VIAL SQ SCH (08:25)
[2023-03-05] MEDS: DAPAGLIFLOZIN PROPANEDIOL 5 MG TABLET PO SCH (08:25)
[2023-03-05] MEDS: PANTOPRAZOLE 40 MG TABLET PO SCH ×2 (08:25→19:59)
[2023-03-05] MEDS: CLOPIDOGREL 75 MG TAB PO SCH (08:25)
[2023-03-05 08:38] LABS: Glucose,Whole Blood 127 mg/dL (70-110)
[2023-03-05] MEDS ORDERED: ASPIRIN 81 MG PO SCH (09:00)
[2023-03-05] MEDS: polyethylene glycoL 3350 17 GM POWD.PACK PO SCH (09:08)
--- NOTE | 2023-03-05 09:34 | P.PN ---
Subjective Progress Note Date: 03/05/23 Kevin Mcknight, is a 73-year-old male who presented to [facility] emergency room with a chief complaint of worsening shortness of breath. He was evaluated in the emergency room vital examination on presentation revealed a temperature of 98.8 pulse 72 respiration 18 blood pressure 124/57 pulse ox 96% on room air Laboratory data revealed a white blood count of 6.2 hemoglobin 9.1 platelet count 235 sodium 136 potassium 4.1 chloride 98 CO2 31 BUN 27 creatinine 1.78 BNP was elevated at 4180 and troponin was slightly elevated at 0.0-6 Testing in the emergency room revealed chest x-ray revealed cardiomegaly and atelectasis in the lung bases Patient was admitted to medical floor for further evaluation and treatment Past medical history is significant for history of congestive heart failure with mildly decreased left ventricular ejection fraction at 45% history of atrial fibrillation with history of watchman procedure 2 months ago, history of recurrent admission was lower GI bleed On review of systems patient is alert and oriented 3 in no apparent distress he is complaining of shortness of breath with activity otherwise he denies any complaints there is no fever or chills no headache or dizziness no chest pain no cough no palpitation no nausea or vomiting no abdominal pain no diarrhea and no urinary symptoms On 03/05/2023 3 patient is alert and oriented 3. Patient still complaining of some shortness of breath. Patient remains on IV Lasix. Current vital signs temp 97.4, heart rate 63, respiratory 20, blood pressure 108/51 pulse ox 96% on room air. Awaiting cardiology consult. Objective - Vital Signs Vital signs: Vital Signs Temp 97.4 F L 03/05/23 07:00 Pulse 63 03/05/23 07:00 Resp 20 03/05/23 07:00 BP 108/51 03/05/23 07:00 Pulse Ox 96 03/05/23 07:00 FiO2 Intake & Output 03/04/23 03/05/23 03/05/23 18:59 06:59 18:59 Intake Total 662 Balance 662 Weight 115.666 kg 115.751 kg Intake: Oral 662 Other: Voiding Method Toilet # Voids 2 2 - Exam In general patient is alert and oriented ?-3 in no distress HEENT head normocephalic and atraumatic Neck is supple no JVD no goiter no lymphadenopathy no carotid bruit Chest examination reveals a scattered crackles in bases no wheezing Cardiac exam reveals regular heart sounds S1 and S2 no gallops no murmurs Abdomen is soft nontender no organomegaly with normal bowel sounds Extremity exam reveals no edema no cyanosis or clubbing Neurological examination reveals no gross focal deficits - Labs CBC & Chem 7: 03/03/23 18:10 03/03/23 18:10 Labs: Abnormal Lab Results - Last 24 Hours (Table) 03/04/23 03/04/23 03/04/23 Range/Units 13:41 17:40 20:14 POC Glucose (mg/dL) 244 H 118 H 181 H (70-110) mg/dL 03/05/23 Range/Units 08:31 POC Glucose (mg/dL) 127 H (70-110) mg/dL Assessment and Plan Plan: Acute exacerbation of systolic congestive heart failure Underlying history of hypertension Underlying history of hyperlipidemia Underlying history of chronic kidney disease Underlying history of recurrent episodes of GI bleeding Known history of atrial fibrillation status post watchman procedure 2 months ago Underlying history of diabetes mellitus At this time patient was admitted to medical floor Home medications reviewed and reordered He was started on IV Lasix Cardiology consultation was requested Will recheck labs in a.m.
--- NOTE | 2023-03-05 09:51 | P.CRDCN ---
History of Present Illness Consult date: 03/05/23 Chief complaint: CHF History of present illness: The patient is a pleasant 73-year-old gentleman who is known to service from before with CAD status post CABG with VALLE to LAD and SVG to OM and SVG to PDA of the RCA has subsequently stenting of the left circumflex as well as ischemic cardiomyopathy was EF of 45% as well as lower extremity CAD with prior revascularization as well as paroxysmal atrial fibrillation and history of GI bleeding the patient underwent recently placement of the watchman device and also chronic kidney disease and chronic anemia and hypertension and dyslipidemia and history of gastrointestinal bleeding. He just was seen by our service last week after he was admitted with GI bleeding. He presented back to the hospital complaining of intermittent episodes of bright red blood in the stool. He did have about 3 episodes total. Beside that he has been experiencing increasing shortness of breath with exertion and increasing in the lower extremities edema with no symptoms of any chest pain or chest discomfort or dizziness or lightheadedness or any presyncope or syncope. He presented to the hospital. He has been taking dual antiplatelet therapy using aspirin and Plavix. He underwent placement of the watchman device at [facility] in [place] in December 2022. He underwent further workup here including hemoglobin and that came in to be at 9.1 which is his baseline and creatinine also came in to be mildly elevated but consistent with his baseline. The chest x-ray showed findings consistent with heart failure. NT proBNP came in to be elevated at 4000. The most recent echo from 2022 revealed mildly impaired LV function with an ejection fraction around 45% with moderate mitral regurgitation and moderate pulmonary hypertension and moderate tricuspid regurgitation On exam he does have bilateral lower extremity edema appeared pitting edema and also diminished breathing sounds bilaterally. Assessment Gastrointestinal bleeding Blood loss anemia secondary to gastrointestinal bleeding appeared to be stable at this point Heart failure exacerbation secondary to heart failure with increased ejection fraction with evidence of right and left. Status post placement of the watchman device History of gastrointestinal bleeding Paroxysmal atrial fibrillation currently the patient has been maintaining normal sinus mechanism Coronary artery disease as described above Lower extremity CAD Multiple comorbid conditions including hypertension and dyslipidemia Chronic anemia Chronic kidney disease Plan Continue the current medical regimen DC aspirin and continue Plavix Continue monitor the hemoglobin and kidney function Continue the current dose of Lasix IV Follow-up with the patient Past Medical History Past Medical History: Atrial Fibrillation, Coronary Artery Disease (CAD), Chest Pain / Angina, Heart Failure, Diabetes Mellitus, GERD/Reflux, GI Bleed, Hyperlipidemia, Hypertension, Myocardial Infarction (SD), Osteoarthritis (OA), Renal Disease, Vascular Disorder Additional Past Medical History / Comment(s): IDDN type II, CKD stage III, rectal bleed with anemia, PAD, caratid artery disease, chronic low back pain/bilateral hip pain, past r foot gout, benign colon polyps Last Myocardial Infarction Date:: 09/2016, 06/20/22 History of Any Multi-Drug Resistant Organisms: None Reported Past Surgical History: Cholecystectomy, Coronary Bypass/CABG, Heart Catheterization, Heart Catheterization With Stent, Orthopedic Surgery, Tonsillectomy Additional Past Surgical History / Comment(s): Multiple peripheral revascularization procedures/stents/arthrectomies/ballooning, multiple aortagrams with runoffs, JOIE, , 2005 CABG 3 vessel, EGD, colonoscopies/polypectomies, cyst on back drained. Past Anesthesia/Blood Transfusion Reactions: No Reported Reaction Additional Past Anesthesia/Blood Transfusion Reaction / Comment(s): Pt has received blood in past without reaction. Date of Last Stent Placement:: 2013 Past Psychological History: No Psychological Hx Reported Additional Psychological History / Comment(s): Pt resides with his spouse and is independent. Smoking Status: Former smoker Past Alcohol Use History: None Reported Additional Past Alcohol Use History / Comment(s): Started smoking about 1965, 2 PPD, quit in 2005. Past Drug Use History: None Reported - Past Family History Father Family Medical History: Myocardial Infarction (SD) Additional Family Medical History / Comment(s): He had a SD in his 30s and had CABG in his 50s. Mother Family Medical History: Pulmonary Embolus Medications and Allergies Home Medications Medication Instructions Recorded Confirmed Type allopurinoL [Zyloprim] 100 mg PO DAILY 03/16/15 03/03/23 History Nitroglycerin Sl Tabs [Nitrostat] 0.4 mg SL Q5M PRN 05/12/16 03/03/23 History Montelukast [Singulair] 10 mg PO DAILY 08/31/17 03/03/23 History Ranolazine [Ranexa] 500 mg PO BID 08/31/17 03/03/23 History Pravastatin Sodium 80 mg PO HS 01/15/19 03/03/23 History Empagliflozin [Jardiance] 12.5 mg PO DAILY 08/04/21 03/03/23 History Cholecalciferol (Vitamin D3) 125 mcg PO HS 02/10/22 03/03/23 History [Vitamin D3 (125 MCG = 5,000 IU)] Magnesium Oxide [Magnesium] 1,000 mg PO DAILY@1200 02/10/22 03/03/23 History Metoprolol Succinate (ER) [Toprol 100 mg PO BID 02/10/22 03/03/23 History XL] Pantoprazole [Protonix] 40 mg PO BID 02/10/22 03/03/23 History Aspirin EC [Ecotrin Low Dose] 81 mg PO Q48H 06/20/22 03/03/23 History Simethicone [Gas-X] 125 mg PO QID PRN 10/18/22 03/03/23 History Cyanocobalamin [Vitamin B-12 1,000 mcg SQ Q60D 10/19/22 03/03/23 History Injection] Clopidogrel [Plavix] 75 mg PO DAILY 01/14/23 03/03/23 History Insulin NPH Human Isophane 64 units SQ DAILY 01/14/23 03/03/23 History [Novolin N] polyethylene glycoL 3350 [Miralax] 17 gm PO DAILY packet 01/17/23 03/03/23 Rx Furosemide [Lasix] 40 mg PO BID@0900,1600 tab 02/07/23 03/03/23 Rx Ferrous Sulfate [Feosol] 325 mg PO DAILY 30 Days #30 tab 02/17/23 03/03/23 Rx Allergies Allergy/AdvReac Type Severity Reaction Status Date / Time Sulfa (Sulfonamide Allergy Rash/Hives Verified 03/03/23 22:04 Antibiotics) sulfamethoxazole Allergy Rash/Hives Verified 03/03/23 22:04 [From Bactrim] trimethoprim [From Bactrim] Allergy Rash/Hives Verified 03/03/23 22:04 Physical Exam Vitals: Vital Signs Temp Pulse Resp BP Pulse Ox 03/05/23 07:00 97.4 F L 63 20 108/51 96 03/05/23 02:00 97.9 F 68 14 120/65 94 L 03/05/23 01:20 78 16 03/04/23 20:56 78 16 03/04/23 20:00 97.8 F 78 16 138/64 95 03/04/23 15:00 98.2 F 67 18 134/73 94 L Intake and Output 03/04/23 03/05/23 03/05/23 22:59 06:59 14:59 Intake Total 422 Balance 422 Intake: Oral 422 Other: Voiding Method Toilet Toilet # Voids 2 2 1 Weight 115.666 kg 115.751 kg Results 03/03/23 18:10 03/03/23 18:10 Current Medications Generic Name Dose Route Start Last Admin Trade Name Freq PRN Reason Stop Dose Admin Allopurinol 100 mg 03/04/23 12:30 03/05/23 08:25 Allopurinol 100 Mg Tab PO 100 mg DAILY CHERELLE Administration Cholecalciferol 125 mcg 03/04/23 21:00 03/04/23 20:56 Cholecalciferol 125 Mcg (5000 Iu) Tablet PO 125 mcg HS [facility] Administration Clopidogrel Bisulfate 75 mg 03/04/23 12:30 03/05/23 08:25 Clopidogrel 75 Mg Tab PO 75 mg DAILY CHERELLE Administration Cyanocobalamin 1,000 mcg 03/28/23 09:00 Cyanocobalamin 1,000 Mcg/Ml 1 Ml Vial SQ Q60D [facility] Dapagliflozin 5 mg 03/04/23 12:30 03/05/23 08:25 Dapagliflozin Propanediol 5 Mg Tablet PO 5 mg DAILY CHERELLE Administration Ferrous Sulfate 325 mg 03/04/23 12:30 03/05/23 08:25 Ferrous Sulfate 325 Mg Tab PO 325 mg DAILY CHERELLE Administration Furosemide 40 mg 03/04/23 21:00 03/05/23 08:24 Furosemide 10 Mg/Ml 4 Ml Vial IV 40 mg Q12HR CHERELLE Administration Insulin Human NPH 64 unit 03/04/23 12:30 03/05/23 08:25 Insulin Nph 100 Unit/Ml 10 Ml Vial SQ 64 unit DAILY CHERELLE Administration Magnesium Oxide 800 mg 03/05/23 12:00 Magnesium Oxide 400 Mg Tab PO DAILY@1200 CHERELLE Metoprolol Succinate 100 mg 03/04/23 12:30 03/05/23 08:24 Metoprolol Succinate (Er) 100 Mg Tab.Er.24h PO 100 mg BID CHERELLE Administration Montelukast Sodium 10 mg 03/04/23 12:30 03/05/23 08:24 Montelukast 10 Mg Tab PO 10 mg DAILY CHERELLE Administration Naloxone HCl 0.2 mg 03/03/23 20:39 Naloxone 0.4 Mg/Ml 1 Ml Vial IV Q2M PRN Opioid Reversal Pantoprazole Sodium 40 mg 03/04/23 12:30 03/05/23 08:25 Pantoprazole 40 Mg Tablet PO 40 mg BID CHERELLE Administration Polyethylene Glycol 17 gm 03/05/23 09:00 03/05/23 09:08 Polyethylene Glycol 3350 17 Gm Powd.Pack PO 17 gm DAILY CHERELLE Administration Pravastatin Sodium 80 mg 03/04/23 21:00 03/04/23 20:56 Pravastatin Sodium 80 Mg Tab PO 80 mg HS CHERELLE Administration Ranolazine 500 mg 03/04/23 21:00 03/05/23 08:24 Ranolazine 500 Mg Tab.Er.12h PO 500 mg BID CHERELLE Administration Simethicone 120 mg 03/04/23 12:28 Simethicone 80 Mg Chewable PO QID PRN gas/bloating Intake and Output 03/04/23 03/05/23 03/05/23 22:59 06:59 14:59 Intake Total 422 Balance 422 Intake: Oral 422 Other: Voiding Method Toilet Toilet # Voids 2 2 1 Weight 115.666 kg 115.751 kg 03/03/23 18:10 03/03/23 18:10
[2023-03-05] MEDS: MAGNESIUM OXIDE 400 MG TAB PO SCH (13:31)
[2023-03-05 13:47] LABS: ALT 10 U/L (10-49); AST 11 U/L (14-35); Albumin 3.9 d/dL (3.8-4.9); Albumin/Globulin Ratio 1.86 Ratio (1.60-3.17); Alkaline Phosphatase 107 U/L (41-126); Blood Urea Nitrogen 23.4 mg/dL (9.0-27.0); Calcium 8.9 mg/dL (8.7-10.3); Carbon Dioxide 26.7 mmol/L (21.6-31.8); Chloride 98 mmol/L (96-109); Globulin 2.1 d/dL (1.6-3.3); Glucose 87 mg/dL (70-110); Sodium 138 mmol/L (135-145); Total Bilirubin 0.4 mg/dL (0.3-1.2)
[2023-03-05 14:02] LABS: HCT 31.4 % (39.6-50.0); HGB 8.6 d/dL (12.0-15.0); MCH 24.9 pg (27.0-32.0); MCHC 27.4 d/dL (32.0-37.0); MCV 90.8 FL (80.0-97.0); Mean Platelet Volume 9.5 FL (9.5-12.2); NRBC Per 100 WBC 0 X 10*3/uL (0.00-0.01); Platelet Count 269 X 10*3/uL (140-440); RBC 3.46 X 10*6/uL (4.40-5.60); RDW 24.5 % (11.5-14.5); WBC 6.66 X 10*3/uL (4.50-10.00)
[2023-03-05 14:43] LABS: Basophils # (A) 0.03 X 10*3/uL (0.00-0.10); Basophils % (A) 0.5 %; Eosinophils # (A) 0.14 X 10*3/uL (0.04-0.35); Eosinophils % (A) 2.1 %; Lymphocytes # (A) 1.55 X 10*3/uL (0.90-5.00); Lymphocytes % (A) 23.3 %; Macrocytosis (M) 2+; Monocytes # (A) 0.59 X 10*3/uL (0.20-1.00); Monocytes % (A) 8.9 %; Neutrophils # (A) 4.33 X 10*3/uL (1.80-7.70); Neutrophils % (A) 64.9 %
[2023-03-05 17:54] LABS: Glucose,Whole Blood 131 mg/dL (70-110)
[2023-03-05] MEDS: CHOLECALCIFEROL 125 MCG (5000 IU) TABLET PO SCH (19:58)
[2023-03-05] MEDS: PRAVASTATIN SODIUM 80 MG TAB PO SCH (19:59)
[2023-03-05 20:01] LABS: Glucose,Whole Blood 220 mg/dL (70-110)
[2023-03-06 07:36] LABS: Glucose,Whole Blood 166 mg/dL (70-110)
[2023-03-06 08:48] LABS: ALT 12 U/L (10-49); AST 10 U/L (14-35); Albumin 3.9 d/dL (3.8-4.9); Albumin/Globulin Ratio 1.86 Ratio (1.60-3.17); Alkaline Phosphatase 106 U/L (41-126); BUN/Creat Ratio 13.21 Ratio (12.00-20.00); Blood Urea Nitrogen 25.1 mg/dL (9.0-27.0); Calcium 9.1 mg/dL (8.7-10.3); Carbon Dioxide 28.2 mmol/L (21.6-31.8); Chloride 97 mmol/L (96-109); Globulin 2.1 d/dL (1.6-3.3); Glucose 141 mg/dL (70-110); Potassium 4.2 mmol/L (3.5-5.5); Sodium 138 mmol/L (135-145); Total Bilirubin 0.4 mg/dL (0.3-1.2)
[2023-03-06 09:34] LABS: Basophils # (A) 0.03 X 10*3/uL (0.00-0.10); Basophils % (A) 0.5 %; Eosinophils % (A) 1.6 %; HCT 29.9 % (39.6-50.0); HGB 8.5 d/dL (12.0-15.0); Lymphocytes # (A) 1.62 X 10*3/uL (0.90-5.00); Lymphocytes % (A) 25.1 %; MCH 25.4 pg (27.0-32.0); MCHC 28.4 d/dL (32.0-37.0); MCV 89.5 FL (80.0-97.0); Mean Platelet Volume 9.2 FL (9.5-12.2); Monocytes # (A) 0.66 X 10*3/uL (0.20-1.00); Monocytes % (A) 10.2 %; NRBC Per 100 WBC 0 X 10*3/uL (0.00-0.01); Neutrophils # (A) 4.02 X 10*3/uL (1.80-7.70); Neutrophils % (A) 62.3 %; Platelet Count 233 X 10*3/uL (140-440); RBC 3.34 X 10*6/uL (4.40-5.60); RDW 23.9 % (11.5-14.5); WBC 6.45 X 10*3/uL (4.50-10.00)
[2023-03-06] MEDS: DAPAGLIFLOZIN PROPANEDIOL 5 MG TABLET PO SCH (09:58)
[2023-03-06] MEDS: PANTOPRAZOLE 40 MG TABLET PO SCH ×2 (09:58→20:56)
[2023-03-06] MEDS: METOPROLOL SUCCINATE (ER) 100 MG TAB.ER.24H PO SCH ×2 (09:58→20:56)
[2023-03-06] MEDS: FERROUS SULFATE 325 MG TAB PO SCH (09:59)
[2023-03-06] MEDS: allopurinoL 100 MG TAB PO SCH (09:59)
[2023-03-06] MEDS: CLOPIDOGREL 75 MG TAB PO SCH (09:59)
[2023-03-06] MEDS: MONTELUKAST 10 MG TAB PO SCH (09:59)
[2023-03-06] MEDS: RANOLAZINE 500 MG TAB.ER.12H PO SCH ×2 (09:59→20:56)
[2023-03-06] MEDS: polyethylene glycoL 3350 17 GM POWD.PACK PO SCH (09:59)
[2023-03-06] MEDS: FUROSEMIDE 10 MG/ML 4 ML VIAL IV SCH (10:13)
[2023-03-06] MEDS: INSULIN NPH 100 UNIT/ML 10 ML VIAL SQ SCH (10:17)
[2023-03-06] MEDS: FUROSEMIDE 40 MG TAB PO SCH ×2 (10:17→15:30)
--- NOTE | 2023-03-06 10:18 | PN ---
PROGRESS NOTE SUBJECTIVE: Kevin is a 73-year-old gentleman, who is admitted to hospital with shortness of breath and is being treated with intravenous diuretics for heart failure. He is feeling somewhat better, but has not gone back to normal. Still has the blood in his stool. OBJECTIVE: GENERAL: He is comfortable at rest. VITAL SIGNS: Stable. CHEST: Reveals good air entry bilaterally. HEART: Reveals first and second heart sounds and a systolic murmur at the apex. ABDOMEN: Soft. EXTREMITIES: Reveals mild edema. Peripheral pulses are felt. LABORATORY DATA: Labs show that the hemoglobin is 8.6. ASSESSMENT: 1. Congestive heart failure. 2. Anemia. 3. Dyslipidemia. 4. Coronary artery disease. PLAN: The patient's shortness of breath is probably related to the anemia. I will switch the Lasix to p.o. Hopefully home over the next 24 to 48 hours. MMMARIA DEL CARMEN / CB: [phone] /
[2023-03-06] MEDS: MAGNESIUM OXIDE 400 MG TAB PO SCH (12:10)
[2023-03-06] MEDS ORDERED: FUROSEMIDE 40 MG TAB PO SCH (16:00)
--- NOTE | 2023-03-06 16:53 | P.PN ---
Subjective Progress Note Date: 03/06/23 Kevin Mcknight, is a 73-year-old male who presented to [facility] emergency room with a chief complaint of worsening shortness of breath. He was evaluated in the emergency room vital examination on presentation revealed a temperature of 98.8 pulse 72 respiration 18 blood pressure 124/57 pulse ox 96% on room air Laboratory data revealed a white blood count of 6.2 hemoglobin 9.1 platelet count 235 sodium 136 potassium 4.1 chloride 98 CO2 31 BUN 27 creatinine 1.78 BNP was elevated at 4180 and troponin was slightly elevated at 0.0-6 Testing in the emergency room revealed chest x-ray revealed cardiomegaly and atelectasis in the lung bases Patient was admitted to medical floor for further evaluation and treatment Past medical history is significant for history of congestive heart failure with mildly decreased left ventricular ejection fraction at 45% history of atrial fibrillation with history of watchman procedure 2 months ago, history of recurrent admission was lower GI bleed On review of systems patient is alert and oriented 3 in no apparent distress he is complaining of shortness of breath with activity otherwise he denies any complaints there is no fever or chills no headache or dizziness no chest pain no cough no palpitation no nausea or vomiting no abdominal pain no diarrhea and no urinary symptoms On 03/05/2023 patient is alert and oriented 3. Patient still complaining of some shortness of breath. Patient remains on IV Lasix. Current vital signs temp 97.4, heart rate 63, respiratory 20, blood pressure 108/51 pulse ox 96% on room air. Awaiting cardiology consult. On 03/16/2023 patient was seen and examined and oriented 3 in no apparent distress he is still complaining of shortness of breath with activity he is also complaining of bloody stools, otherwise he denies any complaints there is no fever or chills no headache or dizziness no chest pain no cough no nausea or vomiting no abdominal pain no diarrhea and no urinary symptoms Objective - Vital Signs Vital signs: Vital Signs Temp 97.5 F L 03/06/23 06:55 Pulse 61 03/06/23 06:55 Resp 17 03/06/23 06:55 BP 111/44 03/06/23 06:55 Pulse Ox 97 03/06/23 06:55 FiO2 Intake & Output 03/05/23 03/06/23 03/06/23 18:59 06:59 18:59 Intake Total 462 222 Balance 462 222 Weight 115.9 kg Intake: Oral 462 222 Other: Voiding Method Toilet # Voids 2 3 - Exam In general patient is alert and oriented ?-3 in no distress HEENT head normocephalic and atraumatic Neck is supple no JVD no goiter no lymphadenopathy no carotid bruit Chest examination reveals a scattered crackles in bases no wheezing Cardiac exam reveals regular heart sounds S1 and S2 no gallops no murmurs Abdomen is soft nontender no organomegaly with normal bowel sounds Extremity exam reveals no edema no cyanosis or clubbing Neurological examination reveals no gross focal deficits - Labs CBC & Chem 7: 03/06/23 05:37 03/06/23 05:37 Labs: Abnormal Lab Results - Last 24 Hours (Table) 03/05/23 03/05/23 03/05/23 Range/Units 07:16 07:16 17:48 RBC 3.46 L (4.40-5.60) X 10*6/uL Hgb 8.6 L (12.0-15.0) d/dL Hct 31.4 L (39.6-50.0) % MCH 24.9 L (27.0-32.0) pg MCHC 27.4 L (32.0-37.0) d/dL RDW 24.5 H (11.5-14.5) % MPV (9.5-12.2) FL Macrocytosis (manual) 2+ A Anion Gap 13.30 H (4.00-12.00) mmol/L Creatinine 1.8 H (0.6-1.5) mg/dL Est GFR (CKD-EPI) 39 L (>=60) Glucose (70-110) mg/dL POC Glucose (mg/dL) 131 H (70-110) mg/dL AST 11 L (14-35) U/L Total Protein 6.0 L (6.2-8.2) d/dL 03/05/23 03/06/23 03/06/23 Range/Units 20:00 05:37 05:37 RBC 3.34 L (4.40-5.60) X 10*6/uL Hgb 8.5 L (12.0-15.0) d/dL Hct 29.9 L (39.6-50.0) % MCH 25.4 L (27.0-32.0) pg MCHC 28.4 L (32.0-37.0) d/dL RDW 23.9 H (11.5-14.5) % MPV 9.2 L (9.5-12.2) FL Macrocytosis (manual) Anion Gap 12.80 H (4.00-12.00) mmol/L Creatinine 1.9 H (0.6-1.5) mg/dL Est GFR (CKD-EPI) 37 L (>=60) Glucose 141 H (70-110) mg/dL POC Glucose (mg/dL) 220 H (70-110) mg/dL AST 10 L (14-35) U/L Total Protein 6.0 L (6.2-8.2) d/dL 03/06/23 Range/Units 07:34 RBC (4.40-5.60) X 10*6/uL Hgb (12.0-15.0) d/dL Hct (39.6-50.0) % MCH (27.0-32.0) pg MCHC (32.0-37.0) d/dL RDW (11.5-14.5) % MPV (9.5-12.2) FL Macrocytosis (manual) Anion Gap (4.00-12.00) mmol/L Creatinine (0.6-1.5) mg/dL Est GFR (CKD-EPI) (>=60) Glucose (70-110) mg/dL POC Glucose (mg/dL) 166 H (70-110) mg/dL AST (14-35) U/L Total Protein (6.2-8.2) d/dL Assessment and Plan Plan: Acute exacerbation of systolic congestive heart failure Underlying history of hypertension Underlying history of hyperlipidemia Underlying history of chronic kidney disease Underlying history of recurrent episodes of GI bleeding Known history of atrial fibrillation status post watchman procedure 2 months ago Underlying history of diabetes mellitus At this time patient was admitted to medical floor Home medications reviewed and reordered He was started on IV Lasix Cardiology consultation was requested Will recheck labs in a.m.
[2023-03-06] MEDS: CHOLECALCIFEROL 125 MCG (5000 IU) TABLET PO SCH (20:57)
[2023-03-06] MEDS: PRAVASTATIN SODIUM 80 MG TAB PO SCH (20:57)
[2023-03-07 06:19] LABS: Glucose,Whole Blood 148 mg/dL (70-110)
[2023-03-07] MEDS: RANOLAZINE 500 MG TAB.ER.12H PO SCH (10:18)
[2023-03-07] MEDS: allopurinoL 100 MG TAB PO SCH (10:18)
[2023-03-07] MEDS: FERROUS SULFATE 325 MG TAB PO SCH (10:18)
[2023-03-07] MEDS: PANTOPRAZOLE 40 MG TABLET PO SCH (10:20)
[2023-03-07] MEDS: CLOPIDOGREL 75 MG TAB PO SCH (10:20)
[2023-03-07] MEDS: MONTELUKAST 10 MG TAB PO SCH (10:20)
[2023-03-07] MEDS: MAGNESIUM OXIDE 400 MG TAB PO SCH (10:20)
[2023-03-07] MEDS: FUROSEMIDE 40 MG TAB PO SCH (10:21)
[2023-03-07] MEDS: polyethylene glycoL 3350 17 GM POWD.PACK PO SCH (10:21)
[2023-03-07] MEDS: DAPAGLIFLOZIN PROPANEDIOL 5 MG TABLET PO SCH (10:21)
[2023-03-07] MEDS: INSULIN NPH 100 UNIT/ML 10 ML VIAL SQ SCH (10:21)
[2023-03-07] MEDS: METOPROLOL SUCCINATE (ER) 100 MG TAB.ER.24H PO SCH (10:21)
--- NOTE | 2023-03-07 10:21 | PN ---
PROGRESS NOTE SUBJECTIVE: Kevin is a 73-year-old gentleman, who is admitted to hospital with CHF exacerbation. I changed him to p.o. Lasix yesterday. He is feeling fine. Shortness of breath has improved. He is saturating at 98% on room air. OBJECTIVE: GENERAL: Comfortable at rest. VITAL SIGNS: Stable. CHEST: Reveals good air entry bilaterally. HEART: Reveals first and second heart sounds. No gallop. No murmur. ABDOMEN: Soft. EXTREMITIES: Did not reveal any edema. Peripheral pulses are felt. LABORATORY DATA: Showed that the hemoglobin yesterday was 8.5, which has remained relatively stable. His BUN and creatinine are elevated at 25 and 1.9. ASSESSMENT: 1. Acute exacerbation of chronic systolic heart failure. 2. Pulmonary hypertension. PLAN: The patient is feeling better. He will continue current medications. Follow up with Cardiology a week after discharge. MMRAIL / IRMAN: [id number] /
[2023-03-07] MEDS ORDERED: SODIUM FERRIC GLUCONAT-SUCROSE 125 MG in SODIUM CHLORIDE 0.9% 100 ML IVPB ONE (10:45)
[2023-03-07 11:14] LABS: HCT 29.2 % (39.0-53.0); HGB 8.5 gm/dL (13.0-17.5); MCH 26.6 pg (25.0-35.0); MCHC 29.1 g/dL (31.0-37.0); MCV 91.4 fL (80.0-100.0); RDW 21.5 % (11.5-15.5); WBC 4.5 k/uL (3.8-10.6)
[2023-03-07 11:15] LABS: Anisocytosis Moderate; Basophils % (A) 1 %; Eosinophils # (A) 0.1 k/uL (0-0.7); Eosinophils % (A) 1 %; Hypochromasia Marked; Lymphocytes # (A) 1.1 k/uL (1.0-4.8); Lymphocytes % (A) 24 %; Macrocytosis Slight; Mean Platelet Volume 7.2; Monocytes # (A) 0.3 k/uL (0-1.0); Monocytes % (A) 7 %; Neutrophils % (A) 66 %; Platelet Count 201 k/uL (150-450)
[2023-03-07 11:27] LABS: ALT 15 U/L (4-49); AST 20 U/L (17-59); African American GFR (CKD) 38 (>60 ml/min/1.73 sqM); Albumin 3.8 g/dL (3.5-5.0); Albumin/Globulin Ratio 1.5; Alkaline Phosphatase 99 U/L (38-126); Anion Gap 8 mmol/L; Blood Urea Nitrogen 28 mg/dL (9-20); Calcium 8.5 mg/dL (8.4-10.2); Carbon Dioxide 31 mmol/L (22-30); Chloride 96 mmol/L (98-107); Globulin 2.5 g/dL; Glucose 237 mg/dL (74-99); Non-African American GFR(CKD) 33 (>60 ml/min/1.73 sqM); Potassium 4.5 mmol/L (3.5-5.1); Sodium 135 mmol/L (137-145); Total Bilirubin 0.5 mg/dL (0.2-1.3); Total Protein 6.3 g/dL (6.3-8.2)
[2023-03-07 14:51] VITALS: BP 125/79; PULSE 64; RESP 20; TEMP 97.6
--- NOTE | 2023-03-15 10:37 | P.PN ---
Subjective Progress Note Date: 03/07/23 Kevin Mcknight, is a 73-year-old male who presented to [facility] emergency room with a chief complaint of worsening shortness of breath. He was evaluated in the emergency room vital examination on presentation revealed a temperature of 98.8 pulse 72 respiration 18 blood pressure 124/57 pulse ox 96% on room air Laboratory data revealed a white blood count of 6.2 hemoglobin 9.1 platelet count 235 sodium 136 potassium 4.1 chloride 98 CO2 31 BUN 27 creatinine 1.78 BNP was elevated at 4180 and troponin was slightly elevated at 0.0-6 Testing in the emergency room revealed chest x-ray revealed cardiomegaly and atelectasis in the lung bases Patient was admitted to medical floor for further evaluation and treatment Past medical history is significant for history of congestive heart failure with mildly decreased left ventricular ejection fraction at 45% history of atrial fibrillation with history of watchman procedure 2 months ago, history of recurrent admission was lower GI bleed On review of systems patient is alert and oriented 3 in no apparent distress he is complaining of shortness of breath with activity otherwise he denies any complaints there is no fever or chills no headache or dizziness no chest pain no cough no palpitation no nausea or vomiting no abdominal pain no diarrhea and no urinary symptoms On 03/05/2023 patient is alert and oriented 3. Patient still complaining of some shortness of breath. Patient remains on IV Lasix. Current vital signs temp 97.4, heart rate 63, respiratory 20, blood pressure 108/51 pulse ox 96% on room air. Awaiting cardiology consult. On 03/16/2023 patient was seen and examined and oriented 3 in no apparent distress he is still complaining of shortness of breath with activity he is also complaining of bloody stools, otherwise he denies any complaints there is no fever or chills no headache or dizziness no chest pain no cough no nausea or vomiting no abdominal pain no diarrhea and no urinary symptoms Objective - Vital Signs Vital signs: Vital Signs Temp 97.7 F 03/07/23 07:00 Pulse 61 03/07/23 07:00 Resp 18 03/07/23 07:00 BP 111/63 03/07/23 07:00 Pulse Ox 98 03/07/23 07:00 FiO2 Intake & Output 03/06/23 03/07/23 03/07/23 18:59 06:59 18:59 Intake Total 444 Balance 444 Weight 117.1 kg Intake: Oral 444 Other: Voiding Method Toilet # Voids 1 1 # Bowel Movements 1 - Exam In general patient is alert and oriented ?-3 in no distress HEENT head normocephalic and atraumatic Neck is supple no JVD no goiter no lymphadenopathy no carotid bruit Chest examination reveals a scattered crackles in bases no wheezing Cardiac exam reveals regular heart sounds S1 and S2 no gallops no murmurs Abdomen is soft nontender no organomegaly with normal bowel sounds Extremity exam reveals no edema no cyanosis or clubbing Neurological examination reveals no gross focal deficits - Labs CBC & Chem 7: 03/06/23 05:37 03/06/23 05:37 Labs: Abnormal Lab Results - Last 24 Hours (Table) 03/07/23 Range/Units 06:18 POC Glucose (mg/dL) 148 H (70-110) mg/dL Assessment and Plan Plan: Acute exacerbation of systolic congestive heart failure Underlying history of hypertension Underlying history of hyperlipidemia Underlying history of chronic kidney disease Underlying history of recurrent episodes of GI bleeding Known history of atrial fibrillation status post watchman procedure 2 months ago Underlying history of diabetes mellitus At this time patient was admitted to medical floor Home medications reviewed and reordered He was started on IV Lasix Cardiology consultation was requested Will recheck labs in a.m.
--- NOTE | 2023-03-15 10:38 | P.DS ---
Providers Date of admission: 03/07/23 10:39 Expected date of discharge: 03/07/23 Attending physician: Chichi Chen Consults: 03/04/23 12:30 Consult Physician Routine Consulting Provider: Mickey Doe Consult Reason/Comments: CHF Do you want consulting provider notified?: Yes Primary care physician: Kristel Hall [facility] Course: Discharge diagnosis Acute exacerbation of systolic congestive heart failure Underlying history of hypertension Underlying history of hyperlipidemia Underlying history of chronic kidney disease Underlying history of recurrent episodes of GI bleeding Known history of atrial fibrillation status post watchman procedure 2 months ago Underlying history of diabetes mellitus Hospital course Kevin Mcknight, is a 73-year-old male who presented to [facility] emergency room with a chief complaint of worsening shortness of breath. He was evaluated in the emergency room vital examination on presentation revealed a temperature of 98.8 pulse 72 respiration 18 blood pressure 124/57 pulse ox 96% on room air Laboratory data revealed a white blood count of 6.2 hemoglobin 9.1 platelet count 235 sodium 136 potassium 4.1 chloride 98 CO2 31 BUN 27 creatinine 1.78 BNP was elevated at 4180 and troponin was slightly elevated at 0.0-6 Testing in the emergency room revealed chest x-ray revealed cardiomegaly and atelectasis in the lung bases Patient was admitted to medical floor for further evaluation and treatment Past medical history is significant for history of congestive heart failure with mildly decreased left ventricular ejection fraction at 45% history of atrial fibrillation with history of watchman procedure 2 months ago, history of recurrent admission was lower GI bleed On review of systems patient is alert and oriented 3 in no apparent distress he is complaining of shortness of breath with activity otherwise he denies any complaints there is no fever or chills no headache or dizziness no chest pain no cough no palpitation no nausea or vomiting no abdominal pain no diarrhea and no urinary symptoms On 03/05/2023 patient is alert and oriented 3. Patient still complaining of some shortness of breath. Patient remains on IV Lasix. Current vital signs temp 97.4, heart rate 63, respiratory 20, blood pressure 108/51 pulse ox 96% on room air. Awaiting cardiology consult. On 03/16/2023 patient was seen and examined and oriented 3 in no apparent distress he is still complaining of shortness of breath with activity he is also complaining of bloody stools, otherwise he denies any complaints there is no fever or chills no headache or dizziness no chest pain no cough no nausea or vomiting no abdominal pain no diarrhea and no urinary symptoms On 03/07/2023 patient has been cleared for discharge. Patient will follow up with cardiology services outpatient Patient Condition at Discharge: Good Plan - Discharge Summary New Discharge Prescriptions: Continue allopurinoL [Zyloprim] 100 mg PO DAILY Nitroglycerin Sl Tabs [Nitrostat] 0.4 mg SL Q5M PRN PRN Reason: Chest Pain Montelukast [Singulair] 10 mg PO DAILY Ranolazine [Ranexa] 500 mg PO BID Pravastatin Sodium 80 mg PO HS Empagliflozin [Jardiance] 12.5 mg PO DAILY Metoprolol Succinate (ER) [Toprol XL] 100 mg PO BID Aspirin EC [Ecotrin Low Dose] 81 mg PO Q48H Furosemide [Lasix] 40 mg PO BID@0900,1600 tab Ferrous Sulfate [Feosol] 325 mg PO DAILY 30 Days #30 tab Cholecalciferol (Vitamin D3) [Vitamin D3 (125 MCG = 5,000 IU)] 125 mcg PO HS Magnesium Oxide [Magnesium] 1,000 mg PO DAILY@1200 Pantoprazole [Protonix] 40 mg PO BID Simethicone [Gas-X] 125 mg PO QID PRN PRN Reason: gas/bloating Cyanocobalamin [Vitamin B-12 Injection] 1,000 mcg SQ Q60D Clopidogrel [Plavix] 75 mg PO DAILY Insulin NPH Human Isophane [Novolin N] 64 units SQ DAILY polyethylene glycoL 3350 [Miralax] 17 gm PO DAILY packet Discharge Medication List allopurinoL [Zyloprim] 100 mg PO DAILY 03/16/15 [History] Nitroglycerin Sl Tabs [Nitrostat] 0.4 mg SL Q5M PRN 05/12/16 [History] Montelukast [Singulair] 10 mg PO DAILY 08/31/17 [History] Ranolazine [Ranexa] 500 mg PO BID 08/31/17 [History] Pravastatin Sodium 80 mg PO HS 01/15/19 [History] Empagliflozin [Jardiance] 12.5 mg PO DAILY 08/04/21 [History] Cholecalciferol (Vitamin D3) [Vitamin D3 (125 MCG = 5,000 IU)] 125 mcg PO HS 02/10/22 [History] Magnesium Oxide [Magnesium] 1,000 mg PO DAILY@1200 02/10/22 [History] Metoprolol Succinate (ER) [Toprol XL] 100 mg PO BID 02/10/22 [History] Pantoprazole [Protonix] 40 mg PO BID 02/10/22 [History] Aspirin EC [Ecotrin Low Dose] 81 mg PO Q48H 06/20/22 [History] Simethicone [Gas-X] 125 mg PO QID PRN 10/18/22 [History] Cyanocobalamin [Vitamin B-12 Injection] 1,000 mcg SQ Q60D 10/19/22 [History] Clopidogrel [Plavix] 75 mg PO DAILY 01/14/23 [History] Insulin NPH Human Isophane [Novolin N] 64 units SQ DAILY 01/14/23 [History] polyethylene glycoL 3350 [Miralax] 17 gm PO DAILY packet 01/17/23 [Rx] Furosemide [Lasix] 40 mg PO BID@0900,1600 tab 02/07/23 [Rx] Ferrous Sulfate [Feosol] 325 mg PO DAILY 30 Days #30 tab 02/17/23 [Rx] Follow up Appointment(s)/Referral(s): Kristel Hall MD [Primary Care Provider] - 1-2 days Discharge Disposition: HOME SELF-CARE
[2023-03-28] MEDS ORDERED: CYANOCOBALAMIN 1,000 MCG/ML 1 ML VIAL SQ SCH (09:00)
== END 2023-03-07 15:30 | disposition home or self-care (01) | DRG 291 ==
LOC: EC 17:20 → 6NMEDSUR 20:49 → OBSVTOIN 03-07 10:39
PROVIDERS: ADMIT Internal Medicine; ATTEND Internal Medicine
DX: I13.0 Hypertensive heart and chronic kidney disease with heart failure and stage 1 through stage 4 chronic kidney disease, or unspecified chronic kidney disease (principal); I50.23 Acute on chronic systolic (congestive) heart failure; J98.11 Atelectasis; K92.1 Melena; D50.0 Iron deficiency anemia secondary to blood loss (chronic); E78.5 Hyperlipidemia, unspecified; I08.1 Rheumatic disorders of both mitral and tricuspid valves; G89.29 Other chronic pain; I25.5 Ischemic cardiomyopathy; M25.552 Pain in left hip; M25.551 Pain in right hip; I25.10 Atherosclerotic heart disease of native coronary artery without angina pectoris; I25.2 Old myocardial infarction; I27.20 Pulmonary hypertension, unspecified; M10.9 Gout, unspecified; M54.50 Low back pain, unspecified; I48.0 Paroxysmal atrial fibrillation; E11.22 Type 2 diabetes mellitus with diabetic chronic kidney disease; N18.30 Chronic kidney disease, stage 3 unspecified; D63.1 Anemia in chronic kidney disease; Z95.1 Presence of aortocoronary bypass graft; Z79.02 Long term (current) use of antithrombotics/antiplatelets; Z79.4 Long term (current) use of insulin; Z79.82 Long term (current) use of aspirin; Z79.899 Other long term (current) drug therapy; Z82.49 Family history of ischemic heart disease and other diseases of the circulatory system; Z86.010 Personal history of colon polyps; Z87.891 Personal history of nicotine dependence; Z95.818 Presence of other cardiac implants and grafts; Z28.21 Immunization not carried out because of patient refusal; Z87.19 Personal history of other diseases of the digestive system
CPT/HCPCS: 36415; 71046; 80053; 82272; 83605; 83880; 84484; 85025; 85610; 85730; 86850; 86900; 86901; 93005; 96374; 99285

== ENCOUNTER → 2023-06-30 | Outpatient (CLI) | payer MEDICARE ==
[2023-06-30 15:28] LABS: Creatinine,Urine Random 24.4 mg/dL; Protein/Creatinine Ratio,Urine 0.369
[2023-06-30 18:34] LABS: Appearance,Urine Clear (Clear); Bilirubin,Urine Negative (Negative); Blood,Urine Negative (Negative); Color,Urine Yellow (Yellow); Ketones,Urine Negative (Negative); Nitrite,Urine Negative (Negative); PH, Urine 5.5; Specific Gravity,Urine 1.017 (1.001-1.030); Urobilinogen,Urine 0.2 E.U./DL
[2023-06-30 19:10] LABS: Microalbumin Creatinine Ratio <48 mg/g Cr (0-30); Urine Creatinine 24.9 mg/dL (39.0-259.0)
[2023-06-30 21:37] LABS: BUN/Creat Ratio 11.94 Ratio (12.00-20.00); Blood Urea Nitrogen 21.5 mg/dL (9.0-27.0); Calcium 9.7 mg/dL (8.7-10.3); Carbon Dioxide 25.4 mmol/L (21.6-31.8); Chloride 95 mmol/L (96-109); Glucose 289 mg/dL (70-110); Magnesium 2.3 mg/dL (1.5-2.4); Phosphorus 3.8 mg/dL (2.4-5.1); Potassium 4.9 mmol/L (3.5-5.5); Sodium 136 mmol/L (135-145)
== END | disposition home or self-care (01) ==
LOC: LABWHC1 12:07
PROVIDERS: ATTEND Internal Medicine Nephrology
DX: N18.31 Chronic kidney disease, stage 3a (principal); N39.0 Urinary tract infection, site not specified; R80.9 Proteinuria, unspecified
CPT/HCPCS: 36415; 80048; 81003; 82043; 82570; 83735; 84100; 84156

== ENCOUNTER 2023-07-24 10:48 | Day surgery (SDC) | payer MEDICARE ==
[2023-07-24] MEDS ORDERED: SODIUM CHLORIDE 0.9% 500 ML 500 ML IV ONE (11:09)
[2023-07-24 11:20] LABS: Glucose,Whole Blood 136 mg/dL (70-110)
[2023-07-24 11:28] VITALS: TEMP 97.8
[2023-07-24] MEDS ORDERED: fentaNYL (PF) 50 MCG/ML 2 ML AMP ONE (11:39)
[2023-07-24] MEDS ORDERED: fentaNYL (PF) 50 MCG/ML 2 ML AMP IVP ONE ×2 (11:58→12:03)
[2023-07-24] MEDS ORDERED: MIDAZOLAM 2 MG/2 ML VIAL IVP ONE ×2 (11:58→12:03)
[2023-07-24] MEDS ORDERED: BENZOCAINE SPRAY 1 CAN TOPICAL ONE (11:58)
[2023-07-24 12:58] VITALS: BP 139/61; RESP 16
[2023-07-24 13:59] VITALS: PULSE 61
--- NOTE | 2023-07-24 14:37 | P.TEE ---
Description of Procedure(s): Procedure performed: Transesophageal Echocardiogram with color flow doppler, pulsed wave doppler and continuous wave doppler, moderate conscious sedation Moderate conscious sedation: Moderate conscious sedation was supplied with direct supervision of myself using Versed and Fentanyl. Complications: none Indications: Status post watchman History: Patient is pleasant 73-year-old male with history of cardiomyopathy, prior CABG and anemia status post watchman left atrial appendage occlusion in December 2022 who presents for elective JOIE to evaluate closure of his left atrial appendage 6 months status post procedure. PROCEDURE: After the risks, benefits and alternatives of the above mentioned procedure was explained in detail with the patient, informed consent was obtained. Patient was brought to the lab in a fasting state. Patient was given IV Versed and Fentanyl for sedation. The throat was sprayed with Hurricane to a nesthetize the throat. A lubricated Omni probe was then introduced into the esophagus and stomach and multiple views were obtained. 2D echo with color flow doppler, pulsed wave doppler and continuous wave doppler was utilized. Agitated saline bubbles were injected to assess for any intra-atrial shunt. The probe was then removed. Patient tolerated the procedure well. Patient was transferred to the post procedure area in stable and satisfactory condition. FINDINGS: 1. The aortic valve is tricuspid with normal function with mild aortic sclerosis and mild aortic insufficiency. 2. The mitral valve appears be normal and mild mitral regurgitation. 3. Tricuspid valve appears to be normal with trace tricuspid regurgitation. 4. There is a small PFO/intra-atrial defect likely related to transseptal puncture with positive bubble study and mainly left to right flow by color Doppler. 5. Left atrial appendage has a Watchman device in place with no leak and no flow by color doppler 6. Left ventricular ejection fraction 40% with global hypokinesis
== END 2023-07-24 13:22 | disposition home or self-care (01) ==
LOC: CATHCVL 10:48
PROVIDERS: ATTEND Internal Medicine
DX: I08.3 Combined rheumatic disorders of mitral, aortic and tricuspid valves (principal); I10 Essential (primary) hypertension; F17.210 Nicotine dependence, cigarettes, uncomplicated; E11.9 Type 2 diabetes mellitus without complications; Z79.82 Long term (current) use of aspirin; Z82.49 Family history of ischemic heart disease and other diseases of the circulatory system; Z84.89 Family history of other specified conditions; Z95.818 Presence of other cardiac implants and grafts; Z79.84 Long term (current) use of oral hypoglycemic drugs; Z79.02 Long term (current) use of antithrombotics/antiplatelets; Z79.899 Other long term (current) drug therapy; Z88.2 Allergy status to sulfonamides; Z91.041 Radiographic dye allergy status
CPT/HCPCS: 93312; 93320; 93325; J2250; J3010

== ENCOUNTER → 2024-01-29 | Outpatient (CLI) | payer MEDICARE ==
[2024-01-29 13:01] LABS: Creatinine,Urine Random 23.3 mg/dL; Protein/Creatinine Ratio,Urine 0.558
[2024-01-29 15:53] LABS: ALT 13 U/L (10-49); AST 15 U/L (14-35); Albumin 4.5 g/dL (3.8-4.9); Alkaline Phosphatase 110 U/L (41-126); BUN/Creat Ratio 17.71 Ratio (12.00-20.00); Blood Urea Nitrogen 30.1 mg/dL (9.0-27.0); Carbon Dioxide 27.9 mmol/L (21.6-31.8); Chloride 98 mmol/L (96-109); Globulin 2.5 g/dL (1.6-3.3); Glucose 255 mg/dL (70-110); Magnesium 2.4 mg/dL (1.5-2.4); Phosphorus 3.4 mg/dL (2.4-5.1); Potassium 4.6 mmol/L (3.5-5.5); Sodium 138 mmol/L (135-145); Total Bilirubin 0.5 mg/dL (0.3-1.2)
[2024-01-29 16:01] LABS: HCT 49.7 % (39.6-50.0); HGB 16.3 g/dL (13.0-17.0); MCH 30.5 pg (27.0-32.0); MCHC 32.8 g/dL (32.0-37.0); MCV 92.9 FL (80.0-97.0); Mean Platelet Volume 9.5 FL (9.5-12.2); NRBC Per 100 WBC 0 X 10*3/uL (0.00-0.01); Platelet Count 221 X 10*3/uL (140-440); RBC 5.35 X 10*6/uL (4.40-5.60); RDW 14.1 % (11.5-14.5); WBC 8.53 X 10*3/uL (4.50-10.00)
[2024-01-29 16:27] LABS: Appearance,Urine Clear (Clear); Bilirubin,Urine Negative (Negative); Blood,Urine Negative (Negative); Color,Urine Yellow (Yellow); Ketones,Urine Negative (Negative); Nitrite,Urine Negative (Negative); PH, Urine 5.5; Specific Gravity,Urine 1.013 (1.001-1.030); Urobilinogen,Urine 0.2 E.U./DL
[2024-01-29 19:36] LABS: Urine Creatinine 24.9 mg/dL (39.0-259.0)
== END | disposition home or self-care (01) ==
LOC: LABWHC1 11:30
PROVIDERS: ATTEND Nurse Practitioner Acute Care
DX: N18.31 Chronic kidney disease, stage 3a (principal); D63.1 Anemia in chronic kidney disease; N39.0 Urinary tract infection, site not specified; R80.9 Proteinuria, unspecified
CPT/HCPCS: 36415; 80053; 81003; 82043; 82570; 83735; 84100; 84156; 85027

== ENCOUNTER 2024-09-13 20:20 | Emergency (ER) | payer MEDICARE ==
[~2024-09-13 20:20] MED LIST changes: +EPINEPHrine 10 ML SYRINGE (0.1 MG/ML) ONE; -HEPARIN SODIUM 1,000 UN/ML (10ML VL) IV ONE; -HEPARIN SODIUM 1,000 UN/ML (10ML VL) ONE; -INSULIN NPH 300 UNIT/3 ML VIAL SQ SCH; -IOPAMIDOL-250 100ML BTL INTRAARTER ONE; -LIDOCAINE 1% INJ 10MG/ML (30 ML VIAL-PF) SQ ONE; -SODIUM CHLORIDE 0.9% 1,000 ML IV ONE; -SODIUM CHLORIDE 0.9% 1,000 ML in EMPTY BAG 1 BAG IV ONE
[2024-09-13 20:25] LABS: Glucose,Whole Blood 227 mg/dL (70-110)
--- NOTE | 2024-09-13 20:34 | ED ---
General Adult HPI - General Stated complaint: Unresponsive - History of Present Illness Initial comments: 74-year-old male with a past medical history of heart disease, unknown past other medical history, history limited by patient's symptoms. History provided by EMS. They states that patient had arrived home from a day of shopping and collapsed. Reportedly patient's AICD gave him a shock. 911 was called by pt's at 7:32. EMS arrived on scene at 740, patient was in PEA , compressions were initiated and pt given epi. ACLS was continued, patient received 7 rounds of epi and remained in PEA. He did receive an amp of bicarb prior to arrival. Was intubated on scene. Blood glucose was in the 200s. Patient has not had ROSC in the last 45 minutes. - Related Data Home Medications Medication Instructions Recorded Confirmed allopurinoL [Zyloprim] 100 mg PO DAILY 03/16/15 07/17/23 Nitroglycerin Sl Tabs [Nitrostat] 0.4 mg SL Q5M PRN 05/12/16 07/24/23 Montelukast [Singulair] 10 mg PO DAILY 08/31/17 07/17/23 Ranolazine [Ranexa] 500 mg PO BID 08/31/17 07/17/23 Pravastatin Sodium 80 mg PO HS 01/15/19 07/24/23 Empagliflozin [Jardiance] 25 mg PO DAILY 08/04/21 07/24/23 Cholecalciferol (Vitamin D3) 125 mcg PO HS 02/10/22 07/24/23 [Vitamin D3 (125 MCG = 5,000 IU)] Magnesium Oxide [Magnesium] 500 mg PO DAILY 02/10/22 07/17/23 Metoprolol Succinate (ER) [Toprol 100 mg PO BID 02/10/22 07/17/23 XL] Pantoprazole [Protonix] 40 mg PO BID 02/10/22 07/17/23 Cyanocobalamin [Vitamin B-12 1,000 mcg SQ Q60D 10/19/22 07/24/23 Injection] Clopidogrel [Plavix] 75 mg PO DAILY 01/14/23 07/17/23 Insulin NPH Human Isophane 68 units SQ DAILY 01/14/23 07/24/23 [NovoLIN N] Ferrous Sulfate [Feosol] 325 mg PO DAILY 07/17/23 07/17/23 Losartan [Cozaar] 25 mg PO DAILY 07/17/23 07/17/23 Multivitamins, Thera [Multivitamin 1 tab PO DAILY 07/17/23 07/17/23 (formulary)] Previous Rx's Medication Instructions Recorded Furosemide [Lasix] 40 mg PO BID@0900,1600 tab 02/07/23 Allergies Allergy/AdvReac Type Severity Reaction Status Date / Time Sulfa (Sulfonamide Allergy Rash/Hives Verified 09/13/24 20:36 Antibiotics) sulfamethoxazole Allergy Rash/Hives Verified 09/13/24 20:36 [From Bactrim] trimethoprim [From Bactrim] Allergy Rash/Hives Verified 09/13/24 20:36 Review of Systems ROS Statement: Those systems with pertinent positive or pertinent negative responses have been documented in the HPI. ROS Other: All systems not noted in ROS Statement are negative. Limitations: ROS unobtainable due to patients medical condition Past Medical History Past Medical History: Atrial Fibrillation, Coronary Artery Disease (CAD), Chest Pain / Angina, Heart Failure, Diabetes Mellitus, GERD/Reflux, GI Bleed, Hyperlipidemia, Hypertension, Myocardial Infarction (GA), Osteoarthritis (OA), R enal Disease, Vascular Disorder Additional Past Medical History / Comment(s): IDDN type II, CKD stage III, rectal bleed with anemia, PAD, caratid artery disease, chronic low back pain/bilateral hip pain, past r foot gout, benign colon polyps Last Myocardial Infarction Date:: 09/2016, 06/20/22 History of Any Multi-Drug Resistant Organisms: None Reported Past Surgical History: Cholecystectomy, Coronary Bypass/CABG, Heart Catheterization, Heart Catheterization With Stent, Orthopedic Surgery, Tonsill ectomy Additional Past Surgical History / Comment(s): Multiple peripheral revascularization procedures/stents/arthrectomies/ballooning, multiple aortagrams with runoffs, JOIE, , 2006 CABG 3 vessel, EGD, colonoscopies/polypectomies, cyst on back drained. Past Anesthesia/Blood Transfusion Reactions: No Reported Reaction Additional Past Anesthesia/Blood Transfusion Reaction / Comment(s): Pt has received blood in past without reaction. Date of Last Stent Placement:: 2013 Smoking Status: Former smoker - Past Family History Father Family Medical History: Myocardial Infarction (GA) Additional Family Medical History / Comment(s): He had a GA in his 30s and had CABG in his 50s. Mother Family Medical History: Pulmonary Embolus General Exam - General Exam Comments Initial Comments: PE: CONSTITUTIONAL: Unresponsive, cyanosis of the face, and acute distress, ill- appearing SKIN cool, cyanosis of the face, pale extremities EYES pulls are fixed, 3 mm, nonreactive no spontaneous extraocular movements HENT: Normocephalic, atraumatic, moist mucus membranes, oropharynx with ET tube in place NECK: , Full range of motion, normal appearance PULMONARY: No spontaneous respirations, assisted respirations being provided via ETT, equal chest rise and chest fall with assisted respirations CARDIOVASCULAR: No pulse, no heart sounds on auscultation, regular rate, rhythm,, pale and cool extremities GASTROINTESTINAL: Soft, nondistended GENITOURINARY: MUSCULOSKELETAL: Extremities have no gross deformity NEUROLOGIC: unresponsive PSYCHIATRIC:unable to assess Course Vital Signs 09/13/24 09/14/24 20:31 02:47 Pulse Rate 0 L 0 L Respiratory 0 L 0 L Rate Blood Pressure 0/0 0/0 O2 Sat by Pulse 0 L 0 L Oximetry Medical Decision Making - Medical Decision Making Was pt. sent in by a medical professional or institution (, PA, REGISTRATION REPRESENTATIVE, urgent care, hospital, or jail...) When possible be specific @ -[No] Did you speak to anyone other than the patient for history (EMS, parent, family, police, friend...)? What history was obtained from this source @I spoke with paramedics, they were called at 732, ACLS was performed, patient intubated, 7 rounds epi, PEA Did you review nursing and triage notes (agree or disagree)? Why? @ -[I reviewed nursing and triage notes] Were old charts reviewed (outside hosp., previous admission, EMS record, old EKG, old radiological studies, urgent care reports/EKG's, jail records)? Report findings @ -Medical records were not reviewed due to acuity of condition and TOD being called shortly after arrival, prior to my being able to access pt's medical records/hx Differential Diagnosis (chest pain, altered mental status, abdominal pain women, abdominal pain men, vaginal bleeding, weakness, fever, dyspnea, syncope, headache, dizziness, GI bleed, back pain, seizure, CVA, palpatations, mental health, musculoskeletal)? Differential diagnose dino broad over top considerations include cardiac arrest secondary to GA,HypoKalemia, Hyperkalemia, PE, Tamponade, overdose this is not an all inclusive list EKG interpreted by me (3pts min.). @ -[As above] X-rays interpreted by me (1pt min.). @ -[None done] CT interpreted by me (1pt min.). @ -[None done] U/S interpreted by me (1pt. min.). @ -[None done] What testing was considered but not performed or refused? (CT, X-rays, U/S, labs)? Why? @ -[None] What meds were considered but not given or refused? Why? @ Additional AMPs of bicarb were considered however at the time of pt's arrival to the ED pt's total down time had been approximately 50 minutes, making further interventions futile Did you discuss the management of the patient with other professionals (professionals i.e. , PA, REGISTRATION REPRESENTATIVE, lab, RT, psych nurse, social worker school, dual hose cementer, teacher, special skills officer, high risk case manager)? Give summary @ -[No] Was smoking cessation discussed for >3mins.? @ -[No] Was critical care preformed (if so, how long)? @ -Yes, ~10 minutes Were there social determinants of health that impacted care today? How? (Homelessness, low income, unemployed, alcoholism, drug addiction, transportation, low edu. Level, literacy, decrease access to med. care, [facility], rehab)? @ -[No] Was there de-escalation of care discussed even if they declined (Discuss DNR or withdrawal of care, Hospice)? @ -[No] What co-morbidities impacted this encounter? (DM, HTN, Smoking, COPD, CAD, Cancer, CVA, ARF, Chemo, Hep., AIDS, mental health diagnosis, sleep apnea, morbid obesity)? A-fib, hypertension, hyperlipidemia, CAD Was patient admitted / discharged? Hospital course, mention meds given and route, prescriptions, significant lab abnormalities, going to OR and other pertinent info. [place] [facility]patient is a 74-year-old male presenting via EMS status post cardiac arrest. In PE for approx the last 50 minutes. Pulse check on arrival showed no pulse. Cyanotic, unresponsive. Actively receiving assisted respirations or ET tube. Pt being connected to cardaic monitor, IV access being obtained. CPR was continued for another 2 minutes and on reassessment remained in PEA. On bedside ultrasound there was no evidence of tamponade and no cardiac activity. Due to prolonged downtime without ever having regained ROSC, TOD was called at 2022. Pt's later arrived and updated to pt's status. branch examiner called and pt was released to the [facility]. Undiagnosed new problem with uncertain prognosis? @ -[No] Drug Therapy requiring intensive monitoring for toxicity (Heparin, Nitro, Insulin, Cardizem)? @ -[No] Were any procedures done? @ -[No] Diagnosis/symptom? @ cardiac arrest Acute, or Chronic, or Acute on Chronic? @ acute Uncomplicated (without systemic symptoms) or Complicated (systemic symptoms)? complicated Side effects of treatment? @ -[No] Exacerbation, Progression, or Severe Exacerbation? @ -[No] Poses a threat to life or bodily function? How? (Chest pain, USA, GA, pneumonia, PE, COPD, DKA, ARF, appy, cholecystitis, CVA, Diverticulitis, Homicidal, Suicidal, threat to staff... and all critical care pts) Yes - Lab Data Lab Results 09/13/24 Range/Units 20:23 POC Glucose (mg/dL) 227 H (70-110) mg/dL POC Glu Sales Engineer TYSON Alston Disposition Clinical Impression: Cardiac arrest Disposition: Referrals: Kristel Hall MD [Primary Care Provider] - 1-2 days Preliminary Cause of : Cardiac arrest
[2024-09-13 20:36] VITALS: BP 0/0; PULSE 0; RESP 0
== END 2024-09-14 02:48 | disposition expired ==
LOC: EC 20:20
DX: I46.9 Cardiac arrest, cause unspecified (principal); I48.91 Unspecified atrial fibrillation; E78.5 Hyperlipidemia, unspecified; I25.10 Atherosclerotic heart disease of native coronary artery without angina pectoris; I13.0 Hypertensive heart and chronic kidney disease with heart failure and stage 1 through stage 4 chronic kidney disease, or unspecified chronic kidney disease; E11.22 Type 2 diabetes mellitus with diabetic chronic kidney disease; N18.30 Chronic kidney disease, stage 3 unspecified; I50.9 Heart failure, unspecified; Z79.4 Long term (current) use of insulin; Z79.84 Long term (current) use of oral hypoglycemic drugs; Z79.899 Other long term (current) drug therapy; Z88.1 Allergy status to other antibiotic agents; Z88.2 Allergy status to sulfonamides; Z87.891 Personal history of nicotine dependence
CPT/HCPCS: 99285 ×2; 36415; 92950; J0171